=== PATIENT | female | born 1945 | race Caucasian/White ===

== ENCOUNTER 2023-06-11 23:18 | Emergency (ER) | payer MEDICARE, SELFPAY ==
[2023-06-11 23:26] VITALS: BP 122/78; PULSE 87; RESP 20; TEMP 37.3; O2SAT 88; BMI 38.7
--- NOTE | 2023-06-11 23:26 | ED_ITS ---
HPI - URI/Sore Throat General Chief Complaint: Shortness of Breath/Dyspnea Stated Complaint: cough Time Seen by Provider: 06/11/23 23:25 History of Present Illness HPI Narrative: 77-year-old female presents for cough and feeling short of breath. She's been this way for a few days and the concern was for pneumonia and she was sent here. She's been coughing up some yellow phlegm reportedly had a fever as well at the [facility]. Related Data Home Medications Medication Instructions Recorded Confirmed acetaminophen 325 mg tablet (Aphen) 650 mg PO DAILY 06/12/23 06/12/23 acetaminophen 325 mg tablet (Aphen) 650 mg PO Q4H PRN pain 06/12/23 06/12/23 aluminum-mag hydroxide-simethicone 10 ml PO Q4H acid reflux 06/12/23 06/12/23 200 mg-200 mg-20 mg/5 mL oral susp aluminum-mag hydroxide-simethicone 5 ml PO Q4H PRN indigestion 06/12/23 06/12/23 200 mg-200 mg-20 mg/5 mL oral susp (Advanced Antacid-Antigas) aspirin 81 mg tablet,delayed 81 mg PO DAILY 06/12/23 06/12/23 release (Adult Low Dose Aspirin) budesonide-formoterol HFA 160 2 inh inhalation BID 06/12/23 06/12/23 mcg-4.5 mcg/actuation aerosol inhaler (Breyna) calcium carbonate 600 mg-vitamin 1 tab PO BID 06/12/23 06/12/23 D3 10 mcg (400 unit) tablet (Calcium 600 + D(3)) ergocalciferol (vitamin D2) 1,250 1,250 mcg PO QWEEK 06/12/23 06/12/23 mcg (50,000 unit) capsule (Drisdol) febuxostat 40 mg tablet 40 mg PO DAILY 06/12/23 06/12/23 folic acid 1 mg tablet 1 mg PO DAILY 06/12/23 06/12/23 furosemide 20 mg tablet 20 mg PO DAILY 06/12/23 06/12/23 gabapentin 300 mg capsule 300 mg PO Q8H 06/12/23 06/12/23 ipratropium 0.5 mg-albuterol 3 mg 3 ml inhalation Q6H PRN shortness 06/12/23 06/12/23 (2.5 mg base)/3 mL nebulization of breath soln levothyroxine 100 mcg tablet 100 mcg PO DAILY 06/12/23 06/12/23 (Euthyrox) liothyronine 5 mcg tablet 5 mcg PO BID 06/12/23 06/12/23 metolazone 5 mg tablet 5 mg PO DAILY 06/12/23 06/12/23 multivitamin (Daily Multi-Vitamin 1 tab PO DAILY 06/12/23 06/12/23 tablet) ondansetron HCl 4 mg tablet 4 mg PO Q4H PRN nausea and vomiting 06/12/23 06/12/23 pantoprazole 40 mg tablet,delayed 40 mg PO DAILY 06/12/23 06/12/23 release spironolactone 25 mg tablet 25 mg PO DAILY 06/12/23 06/12/23 (Aldactone) tramadol 50 mg tablet 25 mg PO Q6H PRN pain 06/12/23 06/12/23 trazodone 150 mg tablet 175 mg PO DAILY 06/12/23 06/12/23 Allergies Allergy/AdvReac Type Severity Reaction Status Date / Time allopurinol Allergy Unknown Verified 06/11/23 23:34 codeine Allergy Unknown Verified 06/11/23 23:34 adhesive tape AdvReac Unknown Verified 06/11/23 23:34 diazepam [From Valium] AdvReac Unknown Verified 06/11/23 23:34 morphine AdvReac Unknown Verified 06/11/23 23:34 prochlorperazine AdvReac Unknown Verified 06/11/23 23:34 [From Compazine] Review of Systems ROS Narrative A ten point review of systems is negative except as noted above. PFSH PFS Social History Smoking status: Never smoker Exam Narrative Exam Narrative: Nurses note and vital signs reviewed and patient is not hypoxic. General: The patient appears well and in no apparent distress. Patient is resting comfortably on cart. Skin: Warm, dry, no pallor noted. There is no rash noted. Head: Normocephalic, atraumatic Eye: Normal conjunctiva, no drainage Ears, Nose, Mouth, and Throat: oral mucosa is moist. Nares patent. Cardiovascular: Regular Rate and Rhythm Respiratory: Patient is in no distress, no accessory muscle use, lungs are clear to auscultation, no wheezing, rales or rhonchi Back: non-tender GI: nontender Musculoskeletal: The patient has no evidence of calf tenderness, no pitting edema, symmetrical pulses noted bilaterally Neurological: A&O x4, normal speech Psychiatric: Cooperative Constitutional Vital Signs, click to edit/add: Last Vital Signs Temp 99.1 F 06/11/23 23:26 Pulse 87 06/11/23 23:26 Resp 20 06/11/23 23:26 BP 122/78 06/11/23 23:26 Pulse Ox 88 L 06/11/23 23:26 O2 Del Method Room Air 06/11/23 23:26 Course Vital Signs Vital signs: Vital Signs Temperature 99.1 F 06/11/23 23:26 Pulse Rate 87 06/11/23 23:26 Respiratory Rate 20 06/11/23 23:26 Blood Pressure 122/78 06/11/23 23:26 Pulse Oximetry 88 L 06/11/23 23:26 Oxygen Delivery Method Room Air 06/11/23 23:26 Temperature 99.1 F 06/11/23 23:26 Pulse Rate 87 06/11/23 23:26 Respiratory Rate 20 06/11/23 23:26 Blood Pressure 122/78 06/11/23 23:26 Pulse Oximetry 88 L 06/11/23 23:26 Oxygen Delivery Method Room Air 06/11/23 23:26 MDM - URI/Sore Throat MDM Narrative Medical decision making narrative: X-ray per radiologist does not show a definite infiltrate. Vital signs are appropriate. Covid test is negative. WBC is elevated and she doesn't have any other symptoms such as abdominal pain or vomiting or dysuria. On doxycycline tonight and prescribed same. Treatment diagnosis and follow-up were discussed with the patient. Differential Diagnosis Differential diagnosis: Likely upper respiratory infection, viral infection, bronchitis and other (pneumonia, Covid) Lab Data Attestation: I reviewed the patient's lab results. Labs: Lab Results 06/11/23 06/11/23 Range/Units 23:35 23:45 WBC 22.3 H (4.0-11.0) 10^3/uL RBC 2.90 L (4.20-5.40) 10^6/uL Hgb 9.4 L (12.0-16.0) g/dL Hct 28.9 L (36.0-48.0) % MCV 99.7 H (81.0-99.0) fL MCH 32.4 (26.7-34.0) pg MCHC 32.5 (29.9-35.2) g/dL RDW 13.8 (11.0-15.0) % Plt Count 485 H (150-450) 10^3/uL MPV 11.1 (9.5-13.5) fL Seg Neuts % (Manual) 89.0 Lymphocytes % (Manual) 1.0 L (20.5-60.0) % Monocytes % (Manual) 6.0 (1.7-12.0) % Eosinophils % (Manual) 3.0 (0.9-7.0) % Basophils % (Manual) 0.0 L (0.2-2.0) % Promyelocytes % 1.0 Neutrophils # (Manual) 19.84 H (1.4-6.5) 10^3/uL Lymphocytes # (Manual) 0.22 L (1.20-3.80) 10^3/uL Monocytes # (Manual) 1.33 H (0.30-0.80) 10^3/uL Eosinophils # (Manual) 0.66 (0.00-0.70) 10^3/uL Basophils # (Manual) 0.00 (0.00-0.10) 10^3/uL Promyelocytes # 0.22 Anisocytosis 1+ Macrocytosis 1+ Sodium 131 L (136-145) mmol/L Potassium 4.1 (3.5-5.1) mmol/L Chloride 97 L (98-107) mmol/L Carbon Dioxide 28.3 (21.0-32.0) mmol/L Anion Gap 9.8 BUN 45.0 H (7.0-18.0) mg/dL Creatinine 1.99 H (0.55-1.02) mg/dL Est GFR ( Amer) 29 L (>=60) Est GFR (Non-Af Amer) 24 L (>=60) BUN/Creatinine Ratio 22.6 Glucose 128 H (74-106) mg/dL Calcium 8.5 (8.5-10.1) mg/dL SARS-CoV-2 (PCR) Negative (NEGATIVE) Imaging Data Chest x-ray: Radiologist's impression: Procedure: XR chest 1V EXAM: XR chest 1V HISTORY: cough COMPARISON: Chest radiograph dated 10/04/2022. TECHNIQUE: One view of the chest was obtained. FINDINGS: The cardiac silhouette is stable in size. Aortic atherosclerotic disease is seen. There are mild bibasilar opacities. There is no significant pneumothorax or pleural effusion. No acute osseous abnormality is seen. [place] screws are seen within the right humeral head. There has been resection of the distal right and left clavicles. IMPRESSION: 1. Mild bibasilar opacities which are felt to represent atelectasis though developing infection could be present. Electronically authenticated by: Naya CORTEZ Date: 06/12/2023 00 Discharge Plan Discharge Chief Complaint: Shortness of Breath/Dyspnea Clinical Impression: Acute upper respiratory infection Patient Disposition: [facility] Time of Disposition Decision: 01:21 Condition: Good Mode of Transportation: EMS Instructions: Upper Respiratory Infection (ED) Additional Instructions: written prescription for doxycycline Stand Alone Forms: Portal Instructions Referrals: PEPE BOWER DO [Primary Care Provider] - 1 week
[2023-06-11 23:56] LABS: Hematocrit 28.9 % (36.0-48.0); Hemoglobin 9.4 g/dL (12.0-16.0); Mean Corpuscular HGB Conc 32.5 g/dL (29.9-35.2); Mean Corpuscular Hemoglobin 32.4 pg (26.7-34.0); Mean Corpuscular Volume 99.7 fL (81.0-99.0); Mean Platelet Volume 11.1 fL (9.5-13.5); Platelet Count 485 10^3/uL (150-450); Red Cell Distribution Width 13.8 % (11.0-15.0); White Blood Count 22.3 10^3/uL (4.0-11.0)
--- NOTE | 2023-06-12 | XR_ITS ---
The [address] [address] Patient Name: GOSIA CHEATHAM MRN: [id number] date: 1945 Sex: F Assigned Patient Location: ER Current Patient Location: ED.MAIN Accession/Order Number: [id number] Exam Date: 06/12/2023 00:05 Report Date: 06/12/2023 00:28 At the request of: WILBER LEACH Procedure: XR chest 1V EXAM: XR chest 1V HISTORY: cough COMPARISON: Chest radiograph dated 10/04/2022. TECHNIQUE: One view of the chest was obtained. FINDINGS: The cardiac silhouette is stable in size. Aortic atherosclerotic disease is seen. There are mild bibasilar opacities. There is no significant pneumothorax or pleural effusion. No acute osseous abnormality is seen. [place] screws are seen within the right humeral head. There has been resection of the distal right and left clavicles. XR/XR chest 1V IMPRESSION: 1. Mild bibasilar opacities which are felt to represent atelectasis though developing infection could be present. Electronically authenticated by: Naya CORTEZ Date: 06/12/2023 00:28
[2023-06-12 00:16] LABS: Anion Gap 9.8; BUN Creatinine Ratio 22.6; Calcium 8.5 mg/dL (8.5-10.1); Carbon Dioxide 28.3 mmol/L (21.0-32.0); Chloride 97 mmol/L (98-107); Estimated GFR (African America 29 (>=60); Estimated GFR (Non-African Ame 24 (>=60); Glucose 128 mg/dL (74-106); Potassium 4.1 mmol/L (3.5-5.1); Sodium 131 mmol/L (136-145)
[2023-06-12 00:20] LABS: SARS-CoV-2 Ag NEGATIVE (NEGATIVE)
[2023-06-12 00:38] LABS: Lymphocytes Absolute Manual 0.22 10^3/uL (1.20-3.80); Segmented Neut Absolute Manual 19.84 10^3/uL (1.4-6.5)
[2023-06-12 00:39] LABS: Eosinophils Absolute Manual 0.66 10^3/uL (0.00-0.70); Monocytes Absolute Manual 1.33 10^3/uL (0.30-0.80); Promyelocytes Absolute Manual 0.22
[2023-06-12 00:40] LABS: Anisocytosis 1+; Macrocytosis 1+
[2023-06-12] MEDS: DOXYCYCLINE MONOHYDRATE 100 MG CAPSULE PO (02:14)
--- NOTE | 2023-06-12 02:21 | PC.NURSE ---
Meal provided. Aware of ETA for return to [facility].
[2023-06-12 02:37] VITALS: BP 158/80; PULSE 79; RESP 20; O2SAT 94
[2023-06-12 10:16] LABS: SARS-CoV-2 NAA NOT DETECTED (NOT DETECTE)
== END 2023-06-12 03:35 ==
PROVIDERS: Emergency Provider Emergency Medicine; PCP Family Medicine
DX: J06.9 Acute upper respiratory infection, unspecified (principal); Z20.822 Contact with and (suspected) exposure to COVID-19; Z79.82 Long term (current) use of aspirin; Z79.899 Other long term (current) drug therapy; Z79.890 Hormone replacement therapy
CPT/HCPCS: 36415; 71045; 80048; 85027; 87635; 87811; 99284; U0003

== ENCOUNTER 2024-05-11 00:59 | Observation (INO) | payer MEDICARE, SELFPAY ==
[2024-05-11] VITALS (66 sets, daily range): BP systolic 94–145; BP diastolic 44–85; PULSE 73–99; TEMP 36.3–36.7; O2SAT 80–100; BMI 45.5; BMI 45.9
--- NOTE | 2024-05-11 01:25 | XR_ITS ---
The [address] [address] Patient Name: GOSIA CHEATHAM MRN: [id number] date: 1945 Sex: F Assigned Patient Location: ER Current Patient Location: ER Accession/Order Number: [id number] Exam Date: 05/11/2024 01:30 Report Date: 05/11/2024 02:54 At the request of: ANAHI LAKHANI Procedure: XR chest 1V EXAMINATION:XR chest 1V INDICATION:chest pain COMPARISON:06/12/2023 TECHNIQUE:A single frontal view of the chest is submitted. FINDINGS: The cardiac silhouette is enlarged but stable. Lungs are underinflated which is contributing to vascular crowding and atelectasis similar to the previous exam. The pulmonary vascularity is within normal limits. No new suspicious airspace disease has developed in the lungs. There is no costophrenic angle blunting. XR/XR chest 1V IMPRESSION: Similar hypoventilatory changes in the chest without acute cardiopulmonary process. Electronically authenticated by: MAI HAMPTON Date: 05/11/2024 02:54
--- NOTE | 2024-05-11 01:27 | ED.CHESTPAI1 ---
HPI - Chest Pain General Chief Complaint: Chest Pain Stated Complaint: Chest Pain Time Seen by Provider: 05/11/24 01:20 Source: patient Mode of arrival: ambulance Limitations: no limitations History of Present Illness HPI narrative: patient presents to [facility] from [facility] with complaint of chest pain. Started within the hour. Comes and goes. some nausea. Not short of breath. Also complains of back pain. Denies abdominal pain Related Data Home Medications ?Medication ?Instructions ?Recorded ?Confirmed acetaminophen 325 mg tablet (Aphen) 650 mg PO DAILY 06/12/23 05/11/24 aluminum-mag hydroxide-simethicone 5 ml PO Q4H PRN indigestion 06/12/23 05/11/24 200 mg-200 mg-20 mg/5 mL oral susp (Advanced Antacid-Antigas) aspirin 81 mg tablet,delayed 81 mg PO DAILY 06/12/23 05/11/24 release (Adult Low Dose Aspirin) budesonide-formoterol HFA 160 2 inh inhalation BID 06/12/23 05/11/24 mcg-4.5 mcg/actuation aerosol inhaler (Breyna) calcium carbonate 600 mg-vitamin 1 tab PO BID 06/12/23 05/11/24 D3 10 mcg (400 unit) tablet (Calcium 600 + D(3)) ergocalciferol (vitamin D2) 1,250 1,250 mcg PO QWEEK 06/12/23 05/11/24 mcg (50,000 unit) capsule (Drisdol) febuxostat 40 mg tablet 40 mg PO DAILY 06/12/23 05/11/24 folic acid 1 mg tablet 1 mg PO DAILY 06/12/23 05/11/24 furosemide 20 mg tablet 40 mg PO DAILY 06/12/23 05/11/24 gabapentin 300 mg capsule 300 mg PO Q8H 06/12/23 05/11/24 levothyroxine 100 mcg tablet 100 mcg PO DAILY 06/12/23 05/11/24 (Euthyrox) liothyronine 5 mcg tablet 5 mcg PO BID 06/12/23 05/11/24 metolazone 5 mg tablet 5 mg PO DAILY 06/12/23 05/11/24 multivitamin (Daily Multi-Vitamin 1 tab PO DAILY 06/12/23 05/11/24 tablet) pantoprazole 40 mg tablet,delayed 40 mg PO DAILY 06/12/23 05/11/24 release spironolactone 25 mg tablet 25 mg PO DAILY 06/12/23 05/11/24 (Aldactone) tramadol 50 mg tablet 25 mg PO Q6H PRN pain 06/12/23 05/11/24 ammonium lactate 12 % lotion 1 applic topical BID 05/11/24 05/11/24 ketoconazole 2 % topical cream 1 applic topical BID 05/11/24 05/11/24 nystatin 100,000 unit/gram topical 1 applic topical BID PRN skin 05/11/24 05/11/24 powder (Nyamyc) irritation trazodone 100 mg tablet 125 mg PO DAILY 05/11/24 05/11/24 Allergies Allergy/AdvReac Type Severity Reaction Status Date / Time allopurinol Allergy Unknown Unknown Verified 05/13/24 19:35 codeine Allergy Unknown Unknown Verified 05/13/24 19:35 adhesive tape AdvReac Unknown Unknown Verified 05/13/24 19:35 diazepam [From Valium] AdvReac Unknown Unknown Verified 05/13/24 19:35 morphine AdvReac Unknown Unknown Verified 05/13/24 19:35 prochlorperazine AdvReac Unknown Unknown Verified 05/13/24 19:35 [From Compazine] Review of Systems ROS Status of ROS 10 or more systems reviewed and unremarkable except as noted in history and below [facility] Medical History (Updated 05/14/24 @ 00:36 by Sony Odell MD) Macrocytic anemia ?D53.9 - Nutritional anemia, unspecified (ICD-10) Prolonged immobilization ?Z74.09 - Other reduced mobility (ICD-10) Afib ?I48.91 - Unspecified atrial fibrillation (ICD-10) CKD stage 3a, GFR 45-59 ml/min ?N18.31 - Chronic kidney disease, stage 3a (ICD-10) (HFpEF) heart failure with preserved ejection fraction ?I50.30 - Unspecified diastolic (congestive) heart failure (ICD-10) Major depressive disorder ?F32.9 - Major depressive disorder, single episode, unspecified (ICD-10) 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 - Nontoxic goiter, unspecified (ICD-10) Hypothyroid ?E03.9 - Hypothyroidism, unspecified (ICD-10) Neuromuscular dysfunction of bladder ?N31.9 - Neuromuscular dysfunction of bladder, unspecified (ICD-10) Gout ?M10.9 - Gout, unspecified (ICD-10) Fibromyalgia ?M79.7 - Fibromyalgia (ICD-10) Obesity ?E66.9 - Obesity, unspecified (ICD-10) Disc degeneration, lumbar ?M51.36 - Other intervertebral disc degeneration, lumbar region (ICD-10) Lymphedema ?I89.0 - Lymphedema, not elsewhere classified (ICD-10) Pulmonary edema ?J81.1 - Chronic pulmonary edema (ICD-10) Kidney disease ?N28.9 - Disorder of kidney and ureter, unspecified (ICD-10) 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 Smoking status: Never smoker Non-prescribed substance use: denies use Previous occupational history: retired Known occupational exposures/hazards: No Highest level of school completed/degree received: high school graduate Are you now , , , , never or living with a partner: don't know In a typical week, how many times do you talk on the telephone with family, friends, or neighbors: once per week How often do you get together with friends or relatives: once per week How often do you attend mandaen or scientologist services: 1-3 times per year Do you belong to any clubs or organizations such as mandaen groups unions, fraternal or athletic groups, or school groups: no Total score: 0 Score interpretation: A score of less than or equal to 1 indicates the most socially isolated. Little interest or pleasure in doing things: not at all Feeling down, depressed, or hopeless: not at all Feel stressed/tense/nervous/anxious/difficulty sleeping: not at all Due to disability, difficulty making decisions: No Do you think of yourself as: straight/heterosexual Gender Identity: female Exam Constitutional Vital Signs, click to edit/add: Last Vital Signs Temp 98.3 F 05/12/24 11:09 Pulse 72 05/12/24 11:09 Resp 16 05/12/24 11:09 BP 111/62 05/12/24 11:09 Pulse Ox 98 05/12/24 11:09 O2 Del Method Room Air 05/12/24 11:09 O2 Flow Rate 1 05/12/24 04:29 Common normals: no apparent distress, alert and well nourished Other: Parkinson tremor. speaks in low voice HENMT Common normals: normocephalic and head/scalp atraumatic Eye Common normals: EOMs intact bilaterally Respiratory Common normals: normal respiratory effort, no retractions, no use of accessory muscles and clear to auscultation bilaterally Cardio Common normals: regular rate, regular rhythm, S1 normal heart sound and S2 normal heart sound GI Common normals: Normal to inspection, nondistended, normoactive bowel sounds present, soft to palpation and non-tender Extremity Other: stasis dermatitis bilat lower ext Neuro Common normals: moves all extremities Other: tremor upper extremities Psych Appearance: grossly normal Course Course Hospital Course: 78 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 Patient denied cough, fever, chest wall trauma. Patients work up in ED revealed elevated d dimer. She was unable to get CTA due to her renal function. She was started on therapeutic Lovenox overnight to treat suspected PE until this could be confirmed with further testing. i switched her to Eliquis as Lovenox is best avoided with underlying CKD. Patient underwent VQ scan and B/l LE US --> no PE or DVT. Patient's chest pain is likely non cardiac as its pleuritic. She also had negative cardiac enzymes and her EKG did not show acute ischemic changes. She was noted to have Afib which she has a prior hx of. Pt was also noted to have anemia and required one unit blood for hb of 7.5. Anemia w/u is c/w anemia of CKD. Patient is stable for d/c. f/u with PCP in 1-2 weeks Vital Signs Vital signs: Vital Signs Temperature 97.9 F 05/11/24 01:03 Pulse Rate 85 05/11/24 01:03 Respiratory Rate 20 09/08/24 01:03 Blood Pressure 145/85 H 05/11/24 01:03 Pulse Oximetry 95 05/11/24 01:03 Oxygen Delivery Method Room Air 05/11/24 01:03 Temperature 98.3 F 05/12/24 11:09 Pulse Rate 72 05/12/24 11:09 Respiratory Rate 16 05/12/24 11:09 Blood Pressure 111/62 05/12/24 11:09 Pulse Oximetry 98 05/12/24 11:09 Oxygen Delivery Method Room Air 05/12/24 11:09 Oxygen Delivery Flow Rate 1 05/12/24 04:29 MDM - Chest Pain MDM Narrative Medical decision making narrative: [facility] patient presents with chest pain that comes and goes. History of A. fib. she is not on a blood thinner. Troponin neg. D-dimer elevated. Not able to order CTA chest due to her CKD. Also has chronic anemia . EKG with A. Fib without acute findings. given dose of Lovenox after discussion with the hospitalist and will plan obs admission Lab Data Labs: Lab Results 05/11/24 05/11/24 05/11/24 Range/Units 01:15 03:52 07:10 WBC 9.9 8.9 (4.0-11.0) 10^3/uL RBC 2.34 L 2.12 L (4.20-5.40) 10^6/uL Hgb 8.3 L 7.5 L (12.0-16.0) g/dL Hct 25.9 L 23.4 L* (36.0-48.0) % MCV 110.7 H 110.4 H (81.0-99.0) fL MCH 35.5 H 35.4 H (26.7-34.0) pg MCHC 32.0 32.1 (29.9-35.2) g/dL RDW 14.3 14.1 (11.0-15.0) % Plt Count 669 H 602 H (150-450) 10^3/uL MPV 11.2 11.1 (9.5-13.5) fL Seg Neuts % (Manual) 80.0 H (43.0-75.0) Band Neutrophils % 1.0 (0-5) % Lymphocytes % (Manual) 5.0 L (20.5-60.0) % Atypical Lymphs % (Man) 2.0 % Monocytes % (Manual) 7.0 (1.7-12.0) % Eosinophils % (Manual) 4.0 (0.9-7.0) % Basophils % (Manual) 1.0 (0.2-2.0) % Neutrophils # (Manual) 7.92 H (1.4-6.5) 10^3/uL Band Neutrophils # 0.1 (0.0-0.3) 10^3/uL Lymphocytes # (Manual) 0.49 L (1.20-3.80) 10^3/uL Abs Atypical Lymphs Man 0.19 Monocytes # (Manual) 0.69 (0.30-0.80) 10^3/uL Eosinophils # (Manual) 0.39 (0.00-0.70) 10^3/uL Basophils # (Manual) 0.09 (0.00-0.10) 10^3/uL Toxic Vacuolation 2+ Stomatocytes 3+ D-Dimer 1.26 H* (<=0.59) mg/L FEU Sodium 136 140 (136-145) mmol/L Potassium 3.6 3.6 (3.5-5.1) mmol/L Chloride 96 L 101 (98-107) mmol/L Carbon Dioxide 30.6 31.8 (21.0-32.0) mmol/L Anion Gap 13.0 10.8 BUN 59.0 H 59.0 H (7.0-18.0) mg/dL Creatinine 2.28 H 2.13 H (0.55-1.02) mg/dL Est GFR ( Amer) 25 L 27 L (>=60) Est GFR (Non-Af Amer) 21 L 22 L (>=60) BUN/Creatinine Ratio 25.9 27.7 Glucose 107 H 97 (74-106) mg/dL Estimat Average Glucose 108 mg/dL Hemoglobin A1c 5.4 (4.5-6.2) % Calcium 9.0 8.8 (8.5-10.1) mg/dL Troponin I High Sens 7.3 7.7 7.1 (4.0-51.3) pg/mL NT-Pro-B Natriuret Pep 1467.0 (<=1800.0) pg/mL Triglycerides 115 (<=150) mg/dL Cholesterol 128 (<=200) mg/dL LDL Cholesterol, Calc 47.0 mg/dL VLDL Cholesterol 23.0 mg/dL HDL Cholesterol 58 (40-60) mg/dL Cholesterol/HDL Ratio 2.2 TSH 4.279 H (0.358-3.740) uIU/mL Discharge Plan Discharge Chief Complaint: Chest Pain Clinical Impression: D-dimer, elevated Chest pain Qualifiers: Chest pain type: intercostal pain Qualified Code(s): R07.82 - Intercostal pain Patient Disposition: Admitted As Inpatient Discharge Date/Time: 05/11/24 07:45
[2024-05-11 01:31] LABS: Hematocrit 25.9 % (36.0-48.0); Hemoglobin 8.3 g/dL (12.0-16.0); Mean Corpuscular Hemoglobin 35.5 pg (26.7-34.0); Mean Corpuscular Volume 110.7 fL (81.0-99.0); Mean Platelet Volume 11.2 fL (9.5-13.5); Platelet Count 669 10^3/uL (150-450); Red Blood Count 2.34 10^6/uL (4.20-5.40); Red Cell Distribution Width 14.3 % (11.0-15.0); White Blood Count 9.9 10^3/uL (4.0-11.0)
[2024-05-11 01:49] LABS: D Dimer 1.26 mg/L FEU (<=0.59)
[2024-05-11 01:56] LABS: Atypical Lymphocytes Abs Man 0.19; BUN Creatinine Ratio 25.9; Band Neutrophils Absolute 0.1 10^3/uL (0.0-0.3); Basophils Abs Manual 0.09 10^3/uL (0.00-0.10); Carbon Dioxide 30.6 mmol/L (21.0-32.0); Chloride 96 mmol/L (98-107); Eosinophils Absolute Manual 0.39 10^3/uL (0.00-0.70); Estimated GFR (African America 25 (>=60); Estimated GFR (Non-African Ame 21 (>=60); Glucose 107 mg/dL (74-106); Lymphocytes Absolute Manual 0.49 10^3/uL (1.20-3.80); Monocytes Absolute Manual 0.69 10^3/uL (0.30-0.80); Potassium 3.6 mmol/L (3.5-5.1); Segmented Neut Absolute Manual 7.92 10^3/uL (1.4-6.5); Sodium 136 mmol/L (136-145); Troponin I High Sensitivity 7.3 pg/mL (4.0-51.3)
[2024-05-11 01:57] LABS: Stomatocytes 3+; Toxic Vacuolation 2+
[2024-05-11] MEDS: ONDANSETRON PF 4 MG/2 ML VIAL IV (02:00)
[2024-05-11 04:14] LABS: Troponin I High Sensitivity 7.7 pg/mL (4.0-51.3)
[2024-05-11] MEDS: ENOXAPARIN SODIUM 120 MG/0.8 ML SYRINGE SUBQ (04:31)
--- NOTE | 2024-05-11 05:00 | ECG_ITS ---
The [facility] Test Date: 2024-05-11 Pat Name: GOSIA CHEATHAM Department: Room: - Gender: Female Mental Hygienist: : 1945 Requested By: [id number] Order Number: [id number] Reading MD: NAZ VILLEGAS Measurements Intervals [place] Rate: 87 P: -35648 SD: -[id number] QRS: 24 QRSD: 114 T: 5 QT: 420 QTc: 464 Interpretive Statements 1210 Atrial fibrillation 2320 Nonspecific intraventricular conduction delay 8102 Low QRS voltage in chest leads 8304 Long QTc interval 9150 abnormal ECG Electronically Signed On 05-11-2024 7:34:28 EDT by NAZ VILLEGAS
--- NOTE | 2024-05-11 07:05 | NM_ITS ---
The [address] [address] Patient Name: GOSIA CHEATHAM MRN: [id number] date: 1945 Sex: F Assigned Patient Location: [place] Current Patient Location: [place] Accession/Order Number: [id number] Exam Date: 05/11/2024 11:45 Report Date: 05/11/2024 14:18 At the request of: SHAIKH JIMENEZ Procedure: NM pul vent and perfuse NUCLEAR MEDICINE V/Q SCAN HISTORY: Elevated d-dimer. COMPARISON: Chest X-ray 05/11/2024. METHOD: For the ventilation portion of the study, the patient inhaled 26 mCi of Tc-99m-DTPA in aerosol form and ventilation images in multiple projections was performed. For the perfusion portion of the study, the patient was injected intravenously with 8 mCi of Tc-99m-MAA and perfusion images of the lungs in multiple projections were again performed. FINDINGS: There are no perfusion defects. There are no ventilation/perfusion mismatches. NM/NM pul vent and perfuse IMPRESSION: Normal VQ scan. Electronically authenticated by: MATILDE DAVIES Date: 05/11/2024 14:18
[2024-05-11 07:22] LABS: Hemoglobin 7.5 g/dL (12.0-16.0); Mean Corpuscular HGB Conc 32.1 g/dL (29.9-35.2); Mean Corpuscular Hemoglobin 35.4 pg (26.7-34.0); Mean Corpuscular Volume 110.4 fL (81.0-99.0); Mean Platelet Volume 11.1 fL (9.5-13.5); Platelet Count 602 10^3/uL (150-450); Red Cell Distribution Width 14.1 % (11.0-15.0); White Blood Count 8.9 10^3/uL (4.0-11.0)
[2024-05-11 07:32] LABS: Estimated Average Glucose 108 mg/dL; Glycohemoglobin A1C 5.4 % (4.5-6.2)
[2024-05-11 07:40] LABS: Anion Gap 10.8; BUN Creatinine Ratio 27.7; Calcium 8.8 mg/dL (8.5-10.1); Carbon Dioxide 31.8 mmol/L (21.0-32.0); Chloride 101 mmol/L (98-107); Chol HDL Ratio 2.2; Cholesterol 128 mg/dL (<=200); Estimated GFR (African America 27 (>=60); Estimated GFR (Non-African Ame 22 (>=60); Glucose 97 mg/dL (74-106); HDL Cholesterol 58 mg/dL (40-60); Potassium 3.6 mmol/L (3.5-5.1); Sodium 140 mmol/L (136-145); Thyroid Stimulating Hormone 4.279 uIU/mL (0.358-3.740); Triglycerides 115 mg/dL (<=150); Troponin I High Sensitivity 7.1 pg/mL (4.0-51.3)
[2024-05-11 08:09] LABS: Red Blood Count 2.12 10^6/uL (4.20-5.40)
[2024-05-11 08:11] LABS: Hematocrit 23.4 % (36.0-48.0)
--- NOTE | 2024-05-11 08:12 | PC.NURSE ---
pt transferred to [facility] room 214. RN in ER took result of HCT 23.4 and Ronel LACEY on [facility] was notified at 0811
[2024-05-11] MEDS: AMMONIUM LACTATE 226 GM BOTTLE 1 APPLIC TOPICAL ×2 (09:35→20:39)
[2024-05-11] MEDS: KETOCONAZOLE 15 APPLIC TUBE TOPICAL ×2 (09:35→20:39)
[2024-05-11] MEDS: CALCIUM CARBONATE 600 MG/VITAMIN D3 400 IU TABLET 1 TAB PO ×2 (09:36→20:40)
[2024-05-11] MEDS: MULTIVITAMIN TABLET 1 TAB PO (09:36)
[2024-05-11] MEDS: FEBUXOSTAT 40 MG TABLET PO (09:36)
[2024-05-11] MEDS: ASPIRIN 81 MG TAB.CHEW PO (09:36)
[2024-05-11] MEDS: FOLIC ACID 1 MG TABLET PO (09:36)
[2024-05-11] MEDS: OMEPRAZOLE 40 MG CAPSULE.DR PO (09:37)
[2024-05-11] MEDS: APIXABAN 5 MG TABLET 10 MG PO ×2 (09:37→20:40)
[2024-05-11] MEDS: LIOTHYRONINE SODIUM 5 MCG TABLET PO (09:47)
[2024-05-11] MEDS: LEVOTHYROXINE SODIUM 100 MCG TABLET PO (09:47)
[2024-05-11] MEDS: GABAPENTIN 300 MG CAPSULE PO ×3 (09:47→20:40)
[2024-05-11] MEDS: ALBUTEROL SULFATE 2.5 MG/3 ML VIAL NEB IH ×3 (10:29→20:17)
[2024-05-11] MEDS: BUDESONIDE 0.5 MG/2 ML AMPULE NEB IH ×2 (10:29→20:17)
--- NOTE | 2024-05-11 12:38 | P.HP_ITS ---
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 Patient was resting comfortably in bed and was ready for bedtime. Patient denies cough, fever, chest wall trauma. She has prior hx of PE and was previously on anticoagulation for it. She reports that over past few days she has noticed that her right LE is more swollen than usual. Patients work up in ED revealed elevated d dimer but rest of the work up was unremarkable. Her cardiac enzymes are negative. EKG shows rate controlled Afib. She was unable to get CTA due to her renal function. She was started on therapeutic lovenox overnight to treat suspect PE until this could be confirmed with further testing. On review of her chart/problem list, it seems like she had hx of GIB in 2019 and that would explain why she is not on AC for Afib or hx of PE. Patient also had mild hypoxia on arrival and required supplemental oxygenation via NC. She feels better overall but still reports mild chest pain and SOB. She is now on RA. Patient was switched over to Eliquis as lovenox is not a good treatment option due to her renal dysfunction. I have ordered US b/l LE and VQ scan to further assess/confirm VTE. In the meanwhile, we will treat her for suspected PE as there is very high suspicion of PE based on her prior hx, initial work up and presenting illness/prolonged immobilization. There is very low suspicion that her chest pain is due to underlying CAD given that pain was acute onset, pleuritic and associated with SOB, elevated d dimer. She denies personal hx of CAD. Opioid HPI Opioid Management Most Recent Pain and Opioid Data: Last Pain Scale 0 05/11/24 12:47 Last Pain Assessment 05/11/24 12:47 Last ORT Total Score 0 05/11/24 08:11 Last ORT Risk Category Low Risk 05/11/24 08:11 Review of Systems ROS Status of ROS 10 or more systems reviewed and unremark able except as noted in history and below [facility] Medical History (Updated 05/11/24 @ 13:13 by Shaikh Tyrese MD) Macrocytic anemia ?D53.9 - Nutritional anemia, unspecified (ICD-10) Prolonged immobilization ?Z74.09 - Other reduced mobility (ICD-10) Afib ?I48.91 - Unspecified atrial fibrillation (ICD-10) CKD stage 3a, GFR 45-59 ml/min ?N18.31 - Chronic kidney disease, stage 3a (ICD-10) (HFpEF) heart failure with preserved ejection fraction ?I50.30 - Unspecified diastolic (congestive) heart failure (ICD-10) Major depressive disorder ?F32.9 - Major depressive disorder, single episode, unspecified (ICD-10) 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 - Nontoxic goiter, unspecified (ICD-10) Hypothyroid ?E03.9 - Hypothyroidism, unspecified (ICD-10) Neuromuscular dysfunction of bladder ?N31.9 - Neuromuscular dysfunction of bladder, unspecified (ICD-10) Gout ?M10.9 - Gout, unspecified (ICD-10) Fibromyalgia ?M79.7 - Fibromyalgia (ICD-10) Obesity ?E66.9 - Obesity, unspecified (ICD-10) Disc degeneration, lumbar ?M51.36 - Other intervertebral disc degeneration, lumbar region (ICD-10) Lymphedema ?I89.0 - Lymphedema, not elsewhere classified (ICD-10) Pulmonary edema ?J81.1 - Chronic pulmonary edema (ICD-10) Kidney disease ?N28.9 - Disorder of kidney and ureter, unspecified (ICD-10) 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 Smoking status: Never smoker Non-prescribed substance use: denies use Previous occupational history: retired Known occupational exposures/hazards: No Highest level of school completed/degree received: high school graduate Are you now , , , , never or living with a partner: don't know In a typical week, how many times do you talk on the telephone with family, friends, or neighbors: once per week How often do you get together with friends or relatives: once per week How often do you attend yazdanism or pentecostalism services: 1-3 times per year Do you belong to any clubs or organizations such as yazdanism groups unions, fraternal or athletic groups, or school groups: no Total score: 0 Score interpretation: A score of less than or equal to 1 indicates the most socially isolated. Little interest or pleasure in doing things: not at all Feeling down, depressed, or hopeless: not at all Feel stressed/tense/nervous/anxious/difficulty sleeping: not at all Due to disability, difficulty making decisions: No Do you think of yourself as: straight/heterosexual Gender Identity: female Meds Home Medications and Allergies Home Medications ?Medication ?Instructions ?Recorded ?Confirmed ?Type acetaminophen 325 mg tablet (Aphen) 650 mg PO DAILY 06/12/23 05/11/24 History aluminum-mag hydroxide-simethicone 5 ml PO Q4H PRN indigestion 06/12/23 05/11/24 History 200 mg-200 mg-20 mg/5 mL oral susp (Advanced Antacid-Antigas) aspirin 81 mg tablet,delayed 81 mg PO DAILY 06/12/23 05/11/24 History release (Adult Low Dose Aspirin) budesonide-formoterol HFA 160 2 inh inhalation BID 06/12/23 05/11/24 History mcg-4.5 mcg/actuation aerosol inhaler (Breyna) calcium carbonate 600 mg-vitamin 1 tab PO BID 06/12/23 05/11/24 History D3 10 mcg (400 unit) tablet (Calcium 600 + D(3)) ergocalciferol (vitamin D2) 1,250 1,250 mcg PO QWEEK 06/12/23 05/11/24 History mcg (50,000 unit) capsule (Drisdol) febuxostat 40 mg tablet 40 mg PO DAILY 06/12/23 05/11/24 History folic acid 1 mg tablet 1 mg PO DAILY 06/12/23 05/11/24 History furosemide 20 mg tablet 40 mg PO DAILY 06/12/23 05/11/24 History gabapentin 300 mg capsule 300 mg PO Q8H 06/12/23 05/11/24 History levothyroxine 100 mcg tablet 100 mcg PO DAILY 06/12/23 05/11/24 History (Euthyrox) liothyronine 5 mcg tablet 5 mcg PO BID 06/12/23 05/11/24 History metolazone 5 mg tablet 5 mg PO DAILY 06/12/23 05/11/24 History multivitamin (Daily Multi-Vitamin 1 tab PO DAILY 06/12/23 05/11/24 History tablet) pantoprazole 40 mg tablet,delayed 40 mg PO DAILY 06/12/23 05/11/24 History release spironolactone 25 mg tablet 25 mg PO DAILY 06/12/23 05/11/24 History (Aldactone) tramadol 50 mg tablet 25 mg PO Q6H PRN pain 06/12/23 05/11/24 History ammonium lactate 12 % lotion 1 applic topical BID 05/11/24 05/11/24 History ketoconazole 2 % topical cream 1 applic topical BID 05/11/24 05/11/24 History nystatin 100,000 unit/gram topical 1 applic topical BID PRN skin 05/11/24 History powder (Nyamyc) irritation trazodone 100 mg tablet 125 mg PO DAILY 05/11/24 05/11/24 History Allergies Allergy/AdvReac Type Severity Reaction Status Date / Time allopurinol Allergy Unknown Verified 06/11/23 23:34 codeine Allergy Unknown Verified 06/11/23 23:34 adhesive tape AdvReac Unknown Verified 06/11/23 23:34 diazepam [From Valium] AdvReac Unknown Verified 06/11/23 23:34 morphine AdvReac Unknown Verified 06/11/23 23:34 prochlorperazine AdvReac Unknown Verified 06/11/23 23:34 [From Compazine] Exam Constitutional Vital Signs, click to edit/add: Last Vital Signs Temp 98.0 F 05/11/24 11:45 Pulse 83 05/11/24 11:45 Resp 16 05/11/24 11:45 BP 96/52 05/11/24 11:45 Pulse Ox 93 L 05/11/24 11:45 O2 Del Method Room Air 05/11/24 11:45 O2 Flow Rate 1.5 05/11/24 10:33 Documenting provider has reviewed patient's vital signs: yes Common normals: no apparent distress and oriented x3 General appearance: cooperative and comfortable Nutritional appearance: obese HENMT Common normals: normocephalic and head/scalp atraumatic Head and scalp: normocephalic and atraumatic Eye Common normals: conjunctivae normal and no scleral icterus Conjunctiva: conjunctiva(e) normal Respiratory Common normals: normal respiratory effort and clear to auscultation bilaterally Effort & inspection: able to speak in complete sentences Auscultation: clear to auscultation bilaterally and diminished lung sounds Cardio Common normals: regular rate, S1 normal heart sound and S2 normal heart sound Rate: regular rate Rhythm: abnormal rhythm Heart sounds: S1 normal and S2 normal GI Common normals: Normal to inspection, nondistended, normoactive bowel sounds present, soft to palpation, non-tender and no hepatosplenomegaly Palpation: soft and no hepatosplenomegaly Extremity General: edema (B/L LE edema, left is worse than right. ) Neuro Common normals: oriented x3, moves all extremities and no focal motor deficits Psych Common normals: mental status grossly normal, denies hallucinations, denies homicidal ideation and denies suicidal ideation Results Labs Labs: Short CBC 05/11/24 05/11/24 Range/Units 01:15 07:10 WBC 9.9 8.9 (4.0-11.0) 10^3/uL Hgb 8.3 L 7.5 L (12.0-16.0) g/dL Hct 25.9 L 23.4 L* (36.0-48.0) % Plt Count 669 H 602 H (150-450) 10^3/uL BMP 05/11/24 05/11/24 01:15 07:10 Sodium 136 140 Potassium 3.6 3.6 Chloride 96 L 101 Carbon Dioxide 30.6 31.8 BUN 59.0 H 59.0 H Creatinine 2.28 H 2.13 H Glucose 107 H 97 Calcium 9.0 8.8 Assessment and Plan Assessment and Plan (1) Suspected venous thromboembolism (VTE): Assessment and Plan: Suspected PE - elevated d dimer, pleuritic chest pain with SOB, prior hx of PE, prolonged immobilization. On Eliquis empirically. Ordered US B/l LE and VQ scan. Unable to perform CTA due to renal function (2) Respiratory failure with hypoxia: Assessment and Plan: Acute hypoxia noted on admission. Pulse Ox 88% on RA. She was still hypoxic in the morning upon my eval. Now on RA. Likely due to PE. On Eliquis for it. No resp distress. Doing well. Qualifiers: Chronicity: acute Qualified Code(s): J96.01 - Acute respiratory failure with hypoxia (3) Chest pain: Assessment and Plan: Likely due to PE. Low suspicion for underlying CAD. Normal Troponins. EKG shows Afib. Pain is pleuritic in nature with chest wall tenderness. Qualifiers: Chest pain type: intercostal pain Qualified Code(s): R07.82 - Intercostal pain (4) D-dimer, elevated: Assessment and Plan: Suspected PE. On Eliquis. Awaiting further tests for confirmation. (5) (HFpEF) heart failure with preserved ejection fraction: Assessment and Plan: C/w lasix, metolazone and aldactone. Qualifiers: Heart failure chronicity: chronic Qualified Code(s): I50.32 - Chronic diastolic (congestive) heart failure (6) CKD stage 3a, GFR 45-59 ml/min: Assessment and Plan: Renal function more or less at baseline. Monitor closely (7) Afib: Assessment and Plan: HR well controlled. Not on AC for stroke px likely due to prior hx of GIB/PUD. Qualifiers: Atrial fibrillation type: persistent (not longstanding) Qualified Code(s): I48.19 - Other persistent atrial fibrillation (8) Prolonged immobilization: Assessment and Plan: More or less bed bound, wheelchair bound. Does not ambulate. At high risk of PE. PT/OT eval. (9) Macrocytic anemia: Assessment and Plan: Ordered anemia work up. (10) Major depressive disorder: Assessment and Plan: Stable mood. C/w trazodone. Qualifiers: Major depression recurrence: recurrent Active/Remission status: in full remission Qualified Code(s): F33.42 - Major depressive disorder, recurrent, in full remission (11) Gout: Assessment and Plan: Cw febuxostat Qualifiers: Gout site: unspecified site Gout etiology: unspecified cause Chronicity: chronic Presence of tophus: without tophus Qualified Code(s): M1A.9XX0 - Chronic gout, unspecified, without tophus (tophi) (12) Obesity: Assessment and Plan: Patient will benefit from weight loss. She can be a good candidate for GLP agonists. Defer to PCP. Qualifiers: Obesity type: due to excess calories Obesity classification: adult class 3 (BMI >= 40) Serious obesity comorbidity presence: without serious comorbidity Body mass index: BMI 45.0-49.9 Qualified Code(s): E66.01 - Morbid (severe) obesity due to excess calories; Z68.42 - Body mass index [BMI] 45.0- 49.9, adult (13) Hypothyroid: Assessment and Plan: TSH mildly elevated. Will defer adjustment to levothyroxine dose to PCP. Qualifiers: Hypothyroidism type: unspecified Qualified Code(s): E03.9 - Hypothyroidism, unspecified
[2024-05-11 13:24] LABS: Hemoglobin 7.5 g/dL (12.0-16.0)
[2024-05-11 13:29] LABS: Hematocrit 23.9 % (36.0-48.0)
[2024-05-11 13:48] LABS: Percent Iron Saturation 23.5 %
[2024-05-11] MEDS: FUROSEMIDE 40 MG/4 ML VIAL IVP (14:47)
[2024-05-11] MEDS: TRAMADOL HCL 50 MG TABLET 25 MG PO (20:40)
[2024-05-11] MEDS: TRAZODONE HCL 50 MG TABLET 125 MG PO (21:43)
[2024-05-12] VITALS (10 sets, daily range): BP systolic 84–111; BP diastolic 51–62; PULSE 72–96; TEMP 36.7–36.8; O2SAT 90–98
[2024-05-12] MEDS: TRAMADOL HCL 50 MG TABLET 25 MG PO (02:47)
[2024-05-12] MEDS: ALBUTEROL SULFATE 2.5 MG/3 ML VIAL NEB IH ×2 (04:00→11:04)
[2024-05-12] MEDS: GABAPENTIN 300 MG CAPSULE PO (05:22)
[2024-05-12] MEDS: LEVOTHYROXINE SODIUM 100 MCG TABLET PO (05:25)
[2024-05-12 05:30] LABS: Basophils Absolute Auto 0.1 10^3/uL (0.0-0.1); Basophils Percent Auto 1.4 % (0.2-2.0); Eosinophils Absolute Auto 0.4 10^3/uL (0.0-0.7); Eosinophils Percent Auto 4.6 % (0.9-7.0); Hematocrit 25.2 % (36.0-48.0); Hemoglobin 8.2 g/dL (12.0-16.0); Immature Granulocytes Abs Auto 0.19 10^3/uL (0.00-0.03); Immature Granulocytes Pct Auto 2.2 % (0.0-0.5); Lymphocytes Absolute Auto 1.4 10^3/uL (1.2-3.8); Lymphocytes Percent Auto 16.5 % (20.5-60.0); Mean Corpuscular HGB Conc 32.5 g/dL (29.9-35.2); Mean Corpuscular Hemoglobin 34.9 pg (26.7-34.0); Mean Corpuscular Volume 107.2 fL (81.0-99.0); Mean Platelet Volume 11.3 fL (9.5-13.5); Monocytes Absolute Auto 1.1 10^3/uL (0.3-0.8); Monocytes Percent Auto 13.4 % (1.7-12.0); Neutrophils Absolute Auto 5.2 10^3/uL (1.4-6.5); Neutrophils Percent Auto 61.9 % (43.0-75.0); Platelet Count 421 10^3/uL (150-450); Red Blood Count 2.35 10^6/uL (4.20-5.40); Red Cell Distribution Width 16.6 % (11.0-15.0); White Blood Count 8.5 10^3/uL (4.0-11.0)
[2024-05-12 05:51] LABS: Alanine Aminotransferase 17 U/L (14-59); Albumin Globulin Ratio 0.8; Albumin Level 2.8 g/dL (3.4-5.0); Alkaline Phosphatase 108 U/L (46-116); Anion Gap 11.4; Aspartate Amino Transferase 20 U/L (15-37); BUN Creatinine Ratio 27.4; Bilirubin Total 0.4 mg/dL (0.2-1.0); Carbon Dioxide 29.5 mmol/L (21.0-32.0); Chloride 100 mmol/L (98-107); Estimated GFR (African America 28 (>=60); Estimated GFR (Non-African Ame 23 (>=60); Globulin 3.3 g/dL; Glucose 104 mg/dL (74-106); Potassium 3.9 mmol/L (3.5-5.1); Sodium 137 mmol/L (136-145); Total Protein 6.1 g/dL (6.4-8.2)
--- NOTE | 2024-05-12 07:00 | US_ITS ---
The [address] [address] Patient Name: GOSIA CHEATHAM MRN: [id number] date: 1945 Sex: F Assigned Patient Location: [place] Current Patient Location: [place] Accession/Order Number: [id number] Exam Date: 05/12/2024 07:30 Report Date: 05/12/2024 08:37 At the request of: SHAIKH JIMENEZ Procedure: US venous doppler LE BI Ultrasound venous duplex scan, bilateral lower extremities CLINICAL: Left worse than right leg edema. TECHNIQUE: Borden-scale, color-flow, and Doppler examination of both legs was performed with and without provocative maneuvers. FINDINGS: Comparison: None. Examination is very limited due to large body habitus and some veins are not visualized. Sonographic examination of both lower extremity deep venous systems to include the common femoral veins, superficial femoral veins, and popliteal veins demonstrates normal compressibility, color-flow, phasic variation, and augmentation. The origins of the greater saphenous veins on both sides demonstrate normal compression, with normal color-flow at the origins of the proximal profunda femoris veins. There is normal color-flow in the anterior tibial, posterior tibial, and peroneal veins on both sides. Small saphenous veins in both calves demonstrates normal compressibility. Suboptimally visualized posterior tibial and anterior tibial veins bilaterally demonstrate grossly normal compressibility. Peroneal veins not seen on either side. There is subcutaneous edema in both calves. US/US venous doppler LE BI IMPRESSION: 1. No sonographic evidence of deep venous thrombosis in either lower extremity. 2. Nonspecific subcutaneous edema in both calves. Electronically authenticated by: JONATHAN CABRAL Date: 05/12/2024 08:37
[2024-05-12] MEDS: AMMONIUM LACTATE 226 GM BOTTLE 1 APPLIC TOPICAL (08:55)
[2024-05-12] MEDS: KETOCONAZOLE 15 APPLIC TUBE TOPICAL (08:56)
--- NOTE | 2024-05-12 09:00 | CM.NOTE ---
Rounds made with Dr. Xiong, awaiting results of venous Doppler. 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
[2024-05-12] MEDS: MULTIVITAMIN TABLET 1 TAB PO (09:03)
[2024-05-12] MEDS: SPIRONOLACTONE 25 MG TABLET PO (09:03)
[2024-05-12] MEDS: CALCIUM CARBONATE 600 MG/VITAMIN D3 400 IU TABLET 1 TAB PO (09:03)
[2024-05-12] MEDS: FEBUXOSTAT 40 MG TABLET PO (09:03)
[2024-05-12] MEDS: APIXABAN 5 MG TABLET 10 MG PO (09:03)
[2024-05-12] MEDS: ASPIRIN 81 MG TAB.CHEW PO (09:03)
[2024-05-12] MEDS: FOLIC ACID 1 MG TABLET PO (09:03)
[2024-05-12] MEDS: FUROSEMIDE 40 MG TABLET PO (09:03)
[2024-05-12] MEDS: OMEPRAZOLE 40 MG CAPSULE.DR PO (09:03)
--- NOTE | 2024-05-12 09:04 | P.DS_ITS ---
DS: Providers Provider Date of admission: 05/11/24 07:46 Primary care physician: PEPE BOWER DO Admitting clinician: Shaikh Tyrese Attending physician on admission: Shaikh Tyrese Attending physician on discharge: Shaikh Tyrese Discharging clinician: Shaikh Tyrese Anticipated date of discharge: 05/12/24 DS: Diagnosis Discharge Diagnosis (1) Suspected venous thromboembolism (VTE): Assessment and plan: Normal VQ scan, no evidence of DVT on US. Low probability of VTE - stop eliquis especially due to prior hx of PUD/GIB. (2) Respiratory failure with hypoxia: Assessment and plan: Resolved. Suspected intermittent hypoxia, especially at night is due to underlying JENNY. Will need outpatient w/u Qualifiers: Chronicity: acute Qualified Code(s): J96.01 - Acute respiratory failure with hypoxia (3) Chest pain: Assessment and plan: Improved. PE ruled out. Trop x 2 negative. Pain is likely non cardiac as its pleuritic. Outpatient w/u for [facility] if deemed necessary. Qualifiers: Chest pain type: intercostal pain Qualified Code(s): R07.82 - Inte rcostal pain (4) D-dimer, elevated: Assessment and plan: No evidence of VTE on VQ/DVT LE. elevation likely due to obesity/age/CKD (5) (HFpEF) heart failure with preserved ejection fraction: Assessment and plan: At baseline. Monitor. C/w home medications. Qualifiers: Heart failure chronicity: chronic Qualified Code(s): I50.32 - Chronic diastolic (congestive) heart failure (6) CKD stage 3a, GFR 45-59 ml/min: Assessment and plan: Renal function stable. Monitor. (7) Afib: Assessment and plan: HR controlled. Not on AC due to prior hx of GIB. Qualifiers: Atrial fibrillation type: persistent (not longstanding) Qualified Code(s): I48.19 - Other persistent atrial fibrillation (8) Prolonged immobilization: Assessment and plan: PT/OT tx as outpatient. (9) Macrocytic anemia: Assessment and plan: Required one unit PRBC. Hb chronically low likely due to CKD. Anemia w/u - normal iron profile/folate (10) Major depressive disorder: Assessment and plan: c/w trazodone. Qualifiers: Major depression recurrence: recurrent Active/Remission status: in full remission Qualified Code(s): F33.42 - Major depressive disorder, recurrent, in full remission (11) Gout: Assessment and plan: C/w febuxostat Qualifiers: Gout site: unspecified site Gout etiology: unspecified cause Chronicity: chronic Presence of tophus: without tophus Qualified Code(s): M1A.9XX0 - Chronic gout, unspecified, without tophus (tophi) (12) Obesity: Assessment and plan: Will benefit from weight loss. Caloric restrictions/increasing physical activity recomended Qualifiers: Obesity type: due to excess calories Obesity classification: adult class 3 (BMI >= 40) Serious obesity comorbidity presence: without serious comorbidity Body mass index: BMI 45.0-49.9 Qualified Code(s): E66.01 - Morbid (severe) obesity due to excess calories; Z68.42 - Body mass index [BMI] 45.0- 49.9, adult (13) Hypothyroid: Assessment and plan: C/w levothyroxine. 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 Patient denied cough, fever, chest wall trauma. Patients work up in ED revealed elevated d dimer. She was unable to get CTA due to her renal function. She was started on therapeutic Lovenox overnight to treat suspected PE until this could be confirmed with further testing. i switched her to Eliquis as Lovenox is best avoided with underlying CKD. Patient underwent VQ scan and B/l LE US --> no PE or DVT. Patient's chest pain is likely non cardiac as its pleuritic. She also had negative cardiac enzymes and her EKG did not show acute ischemic changes. She was noted to have Afib which she has a prior hx of. Pt was also noted to have anemia and required one unit blood for hb of 7.5. Anemia w/u is c/w anemia of CKD. Patient is stable for d/c. f/u with PCP in 1-2 weeks Status at Discharge Functional status at discharge: bed bound Overall status at discharge: patient is back to baseline Time Spent with Patient Time attestation: Total time spent providing and/or coordinating discharge services: Time spent: greater than 30 minutes Exam Constitutional Vital Signs, click to edit/add: Last Vital Signs Temp 98.3 F 05/12/24 08:24 Pulse 96 H 05/12/24 08:24 Resp 16 05/12/24 08:30 BP 111/56 05/12/24 08:24 Pulse Ox 94 L 05/12/24 08:24 O2 Del Method Room Air 05/12/24 08:24 O2 Flow Rate 1 05/12/24 04:29 Documenting provider has reviewed patient's vital signs: yes Common normals: no apparent distress and oriented x3 General appearance: cooperative and comfortable Nutritional appearance: obese Chest Chest: tenderness sternum and costochondral junction Respiratory Common normals: normal respiratory effort and clear to auscultation bilaterally Effort & inspection: able to speak in complete sentences Auscultation: clear to auscultation bilaterally and diminished lung sounds Cardio Common normals: regular rate, S1 normal heart sound and S2 normal heart sound Rate: regular rate Rhythm: abnormal rhythm Heart sounds: S1 normal and S2 normal Neuro Common normals: oriented x3, moves all extremities and no focal motor deficits Psych Common normals: mental status grossly normal, denies hallucinations, denies homicidal ideation and denies suicidal ideation DS: Data Data Completed and Pending Labs on day of discharge: Labs from last 24 hours 05/12/24 05/11/24 05/11/24 05:19 13:59 12:58 WBC 8.5 RBC 2.35 L Hgb 8.2 L 7.5 L Hct 25.2 L 23.9 L* MCV 107.2 H MCH 34.9 H MCHC 32.5 RDW 16.6 H Plt Count 421 MPV 11.3 Neut % (Auto) 61.9 Lymph % (Auto) 16.5 L Cook % (Auto) 13.4 H Eos % (Auto) 4.6 Baso % (Auto) 1.4 Neut # (Auto) 5.2 Lymph # (Auto) 1.4 Cook # (Auto) 1.1 H Eos # (Auto) 0.4 Baso # (Auto) 0.1 Abs Immat Gran (auto) 0.19 H Imm/Tot Granulo (auto) 2.2 H Sodium 137 Potassium 3.9 Chloride 100 Carbon Dioxide 29.5 Anion Gap 11.4 BUN 57.0 H Creatinine 2.08 H Est GFR ( Amer) 28 L Est GFR (Non-Af Amer) 23 L BUN/Creatinine Ratio 27.4 Glucose 104 Calcium 9.0 Iron 69.0 TIBC 293.0 % Saturation 23.5 Ferritin 154.0 Total Bilirubin 0.4 AST 20 ALT 17 Alkaline Phosphatase 108 Total Protein 6.1 L Albumin 2.8 L Globulin 3.3 Albumin/Globulin Ratio 0.8 Folate 29.00 Blood Type O Negative Antibody Screen Negative Crossmatch See Detail Discharge Plan Discharge Disposition: Xfer [facility] Discharge Medications: Continued aspirin [Adult Low Dose Aspirin] 81 mg tablet,delayed release (DR/EC) 81 mg PO DAILY calcium carbonate-vitamin D3 [Calcium 600 + D(3)] 600 mg-10 mcg (400 unit) tablet 1 tab PO BID febuxostat 40 mg tablet 40 mg PO DAILY folic acid 1 mg tablet 1 mg PO DAILY furosemide 20 mg tablet 40 mg PO DAILY gabapentin 300 mg capsule 300 mg PO Q8H levothyroxine [Euthyrox] 100 mcg tablet 100 mcg PO DAILY liothyronine 5 mcg tablet 5 mcg PO BID multivitamin [Daily Multi-Vitamin] Tablet 1 tab PO DAILY tramadol 50 mg tablet 25 mg PO Q6H PRN (Reason: pain) ergocalciferol (vitamin D2) [Drisdol] 1,250 mcg (50,000 unit) capsule 1,250 mcg PO QWEEK Rx Instructions: on sunday alum-mag hydroxide-simeth [Advanced Antacid-Antigas] 200-200-20 mg/5 mL suspension 5 ml PO Q4H PRN (Reason: indigestion) budesonide-formoterol [Breyna] 160-4.5 mcg/actuation HFA aerosol inhaler 2 inh inhalation BID acetaminophen [Aphen] 325 mg tablet 650 mg PO DAILY pantoprazole 40 mg tablet,delayed release (DR/EC) 40 mg PO DAILY spironolactone [Aldactone] 25 mg tablet 25 mg PO DAILY metolazone 5 mg tablet 5 mg PO DAILY Rx Instructions: 40 minutes before Lasix ammonium lactate 12 % lotion 1 applic topical BID ketoconazole 2 % cream 1 applic topical BID nystatin [Nyamyc] 100,000 unit/gram powder 1 applic topical BID PRN (Reason: skin irritation) trazodone 100 mg tablet 125 mg PO DAILY Print Language: Belarusian Forms: Portal Instructions Follow Up Appointments: f/u with PCP in 1 week
[2024-05-12] MEDS: LIOTHYRONINE SODIUM 5 MCG TABLET PO (09:05)
[2024-05-12] MEDS: METOLAZONE 2.5 MG TABLET 5 MG PO (09:07)
--- NOTE | 2024-05-12 11:01 | SWNOTE1 ---
Pt is from [facility]. Pt is ready for dc back today. SW set up [facility] and pt will return [facility] terminal today at 12:30. SW notified [facility] and nursing of time.
[2024-05-12] MEDS: BUDESONIDE 0.5 MG/2 ML AMPULE NEB IH (11:04)
--- NOTE | 2024-05-12 11:59 | CM.NOTE ---
Medicare Outpatient Observation Notice discussed with pt, pt verbalizes understanding and signs paper. Original given to pt and copy placed on pt's chart.
[2024-05-13 04:07] LABS: Transferrin 235 mg/dL (192-364)
[2024-05-13 09:12] LABS: Vitamin B12 100 pg/mL (232-1245)
== END 2024-05-12 13:00 ==
LOC: ER 05:30 → MS 07:57
PROVIDERS: Registered Nurse; Admitting Provider Internal Medicine; Emergency Provider Internal Medicine; PCP Family Medicine; Visit Provider Internal Medicine
DX: R07.82 Intercostal pain (principal); J96.01 Acute respiratory failure with hypoxia; I50.32 Chronic diastolic (congestive) heart failure; N18.31 Chronic kidney disease, stage 3a; I48.19 Other persistent atrial fibrillation; F33.42 Major depressive disorder, recurrent, in full remission; M1A.9XX0 Chronic gout, unspecified, without tophus (tophi); E66.01 Morbid (severe) obesity due to excess calories; E03.9 Hypothyroidism, unspecified; Z68.42 Body mass index [BMI] 45.0-49.9, adult; D53.9 Nutritional anemia, unspecified; G47.33 Obstructive sleep apnea (adult) (pediatric); R79.1 Abnormal coagulation profile; D63.1 Anemia in chronic kidney disease; Z87.11 Personal history of peptic ulcer disease; Z74.01 Bed confinement status; Z79.890 Hormone replacement therapy; Z79.899 Other long term (current) drug therapy; Z99.3 Dependence on wheelchair
CPT/HCPCS: 36415; 36430; 71045; 78582; 80048; 80053; 80061; 82607; 82728; 82746; 83036; 83540; 83550; 83880; 84443; 84466; 84484; 85007; 85014; 85018; 85025; 85027; 85378; 86850; 86900; 86901; 86923; 93005; 93970; 94640; 94761; 96372; 96374; 96375; 99284; A9540; A9567; G0378; J1650; J1940; J2405; P9016

== ENCOUNTER 2024-05-13 19:24 | Emergency (ER) | payer MEDICARE, SELFPAY ==
[2024-05-13] VITALS (21 sets, daily range): BP systolic 94–152; BP diastolic 35–79; PULSE 75–84; TEMP 36.6; O2SAT 80–100
--- NOTE | 2024-05-13 19:41 | ECG_ITS ---
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
--- NOTE | 2024-05-13 19:41 | XR_ITS ---
The [address] [address] Patient Name: GOSIA CHEATHAM MRN: [id number] date: 1945 Sex: F Assigned Patient Location: ER Current Patient Location: ED.MAIN Accession/Order Number: [id number] Exam Date: 05/13/2024 20:03 Report Date: 05/13/2024 20:21 At the request of: ANAHI LAKHANI Procedure: XR chest 1V EXAM: XR chest 1V HISTORY: chest pain COMPARISON: 05/11/2024. TECHNIQUE: Portable chest one view FINDINGS: Low lung volumes with vascular crowding and perihilar and lower lobe atelectasis. No consolidation, effusion, or pneumothorax. There is cardiomegaly, with probable mild vascular congestion. No ariella pulmonary edema. XR/XR chest 1V IMPRESSION: 1. Expiratory chest. No consolidation. 2. Cardiomegaly with probable mild pulmonary vascular congestion. No ariella pulmonary edema. Electronically authenticated by: JONATHAN CABRAL Date: 05/13/2024 20:21
--- NOTE | 2024-05-13 19:42 | CT_ITS ---
The [address] [address] Patient Name: GOSIA CHEATHAM MRN: [id number] date: 1945 Sex: F Assigned Patient Location: ED.MAIN Current Patient Location: Accession/Order Number: [id number] Exam Date: 05/13/2024 20:08 Report Date: 05/13/2024 21:01 At the request of: ANAHI LAKHANI Procedure: CT abdomen pelvis wo con EXAMINATION: CT abdomen pelvis wo con, 05/13/2024 8:08 PM EDT HISTORY: abdominal pain COMPARISON: CT abdomen and pelvis 02/01/2021. TECHNIQUE: CT scan of the abdomen and pelvis was performed without IV contrast. CT dose reduction technique was used, including Automated Exposure Control. FINDINGS: LOWER CHEST: Normal. LIVER: Stable moderate pneumobilia. Mildly enlarged measuring approximately 20 cm in length. GALLBLADDER AND BILIARY SYSTEM: Status post cholecystectomy. There is associated mild biliary ductal dilatation. SPLEEN: Multiple calcified granulomas. PANCREAS: Moderate fatty replacement. ADRENAL GLANDS: Normal. KIDNEYS AND URETERS: Mild bilateral perinephric stranding consistent with medical renal disease. No stones or hydronephrosis. There is mild left renal atrophy. VASCULATURE: Mild atherosclerotic calcification. There is a stable surgical device in the region of the inferior vena cava. RETROPERITONEUM AND LYMPH NODES: No adenopathy. GASTROINTESTINAL TRACT/MESENTERY: Stable postsurgical changes consistent with partial gastrectomy, gastrojejunostomy and hepaticojejunostomy. The pneumobilia noted above is likely related to the hepaticojejunostomy. There is also evidence of previous partial small bowel obstruction in the left abdomen with anastomosis. The bowel loops are nondistended. There are multiple diverticula in the colon with no acute diverticulitis. Normal mesentery/peritoneum. Status post appendectomy. BLADDER: Low-lying with a probable small cystocele. REPRODUCTIVE SYSTEM: Status post hysterectomy. BODY WALL: Small fat-containing supraumbilical ventral hernia with diastasis of rectus abdominis muscles. There is subcutaneous edema in the body wall, similar to the previous study. BONES: Right hip arthroplasty in place. Severe degenerative changes of the left hip. There are moderate to severe multilevel degenerative changes of the lumbar spine and there are postsurgical changes consistent with laminectomy and posterior fixation at L3-L4. There is moderate dextroscoliosis of the lumbar spine. CT/CT abdomen pelvis wo con IMPRESSION: 1. No acute process in the abdomen or pelvis by limited noncontrast CT. 2. Stable postsurgical changes as described above including evidence of hepaticojejunostomy with associated pneumobilia. 3. Hepatomegaly. 4. Subcutaneous edema in the body wall, and small fat-containing supraumbilical ventral hernia with diastasis of the rectus abdominus muscles. Electronically authenticated by: NAHUM SAHU Date: 05/13/2024 21:01
--- OUTSIDE RECORDS SUMMARY | 2024-05-13 19:42 | XMS_ITS | CCD ---
Author Organization [facility] Care Team Providers Care Fire Captain Name Role Phone ELFEGO SIMMS Admitting Unavailable NASREEN MARY Primary Care Unavailable PEDRO CARLSON Unavailable GIOVANA PONCE Attending Unavailable [place] Procedure Practitioner Unavailab SOY [place] Surgeon Unavailable Unavailable Primary Care Provider UnavailHelene [place] Unavailable MARY ., DR NASREEN Marie Primary Care Unavailable MARY ., DR NASREEN Marie Consulting Unavailable MARY ., DR NASREEN Marie Attending Unavailable MARY ., DR NASREEN Marie Admitting Unavailable WILBER LEACH Consulting Unavailable ANAHI LAKHANI Consulting Unavailable BETH CERON Consulting Unavailable MARY ., DR NASREEN Marie Consulting Unavailable MARY ., DR NASREEN Marie Attending Unavailable MARY ., DR NASREEN Marie Admitting Unavailable MARY ., DR NASREEN Marie Primary Care Unavailable MIRNA, DR CEDRIC Richardson Consulting UnavailGREGORIO Angelo Consulting Unavailable PIERCE MURGUIA Consulting Unavailable MARY ., DR NASREEN Marie Primary Care Unavailable MARY ., DR NASREEN Marie Consulting Unavailable MARY ., DR NASREEN Marie Attending Unavailable MARY ., DR NASREEN Marie Admitting Unavailable Charlene Fabian Consulting Unavailable CORNELIA, DR NAHUM Quick Consulting Unavailable BAKARI ., ALETA KERN Consulting UnavailSHAIKH Zen Garay Consulting Unavailable KERMIT THAPA Consulting Unavailable FAROOQ, TANK Consulting Unavailable Allergies Allergy Classification Reported Allergen(s) Allergy Type Date of Onset Reaction(s) Facility (2 sources) Adhesive Tape; Translations: [ADHESIVE TAPE] Propensity to adverse reactions (disorder) [facility] Repository (3 sources) Codeine; Translations: [codeine] Drug Allergy [facility] Repository (3 sources) diazePAM; Translations: [Valium] Drug Allergy [facility] Repository (2 sources) Morphine; Translations: [morphine] Drug Allergy 013 [facility] Repository (4 sources) Prochlorperazine; Translations: [Compazine] Drug Allergy 013 Unknown [facility] Repository (1 source) Acetaminophen Drug Allergy Unknown [facility] [employer] Other (2 sources) Codeine Drug Allergy Unknown [facility] [employer] Other (1 source) Codeine Drug Allergy Unknown [facility] [employer] Other (1 source) Morphine Drug Allergy Hallucinations [facility] [employer] Other (2 sources) Prochlorperazine Drug Allergy Unknown [facility] [employer] Other (1 source) Tape, Permeable Adhesive Propensity to adverse reactions Unknown [facility] [employer] Other (1 source) Allopurinol Drug Allergy 014 [facility] Repository (1 source) Morphine Drug Allergy 013 [facility] Repository (1 source) Adhesive Tape; Translations: [Tape] Propensity to adverse reactions (disorder) [facility] Repository Medications Current Medications Medication Drug Class(es) Dates Sig (Normalized) Sig (Original) acetaminophen 300 mg / codeine phosphate 30 mg oral tablet (1 source) Opioid Agonist Start: 03-30-2021 take 1 tablet by mouth every six hours Acetaminophen-Cod eine #3 300-30 MG 1 tablet as needed Orally every 6 hrs for 7 days Mar, Active acetaminophen 325 mg / HYDROcodone bitartrate 5 mg oral tablet (1 source) Opioid Agonist take 1 tablet by mouth every six hours HYDROcodone-Aceta minophen 5-325 MG 1 tablet as needed Orally every 6 hrs Active ALPRAZolam 0.5 mg oral tablet (1 source) Benzodiazepine Start: 04-23-2019 take 0.5 tablet by mouth once daily Xanax 0.5 MG take 1/2 tablet half hour before scan. May repeat if needed Orally once a day for 1 days Apr, Active biotin 5 mg oral capsule (1 source) take 1 capsule by mouth every twenty-four hours Biotin 5000 5 MG 1 capsule Orally Once a day Active Calcium Carbonate (1 source) Caltrate 600 150 0 (600 Ca) MG Orally Active diclofenac sodium 0.01 mg/mg topical gel (3 sources) Nonsteroidal Anti-inflammatory Drug Start: 12-01-2019 Diclofenac Sodium 1 % apply 1-2 grams to affected area Transdermal Twice a day for 30 day(s) Nov, Active Start: 02-19-2019 Diclofenac Sod ium 1 % apply 1-2 grams to the affected area Transdermal 2-3 times daily for 30 day(s) Feb, Active take 1 tablet by leo th every twelve hours Diclofenac Sodium 75 MG 1 tablet with food or milk Orally Twice a day for 90 days Active fluocinonide 0.0005 mg/mg topical gel (1 source) Corticosteroid Start: 08-20-2018 Fluocinonide 0.05 % apply 1-2 grams Externally up to 3x's per week for therapy Aug, Active hydroCHLOROthiazide 50 mg oral tablet (1 source) Thiazide Diuretic take 1 tablet by mouth every twenty-fo ur hours hydroCHLOROthiazide 50 MG 1 tablet in the morning Orally Once a day Active Multi For Her 50+ - (1 source) Multi For Her 50 + - Orally Active traMADol hydrochloride 50 mg oral tablet (2 sources) Opioid Agonist Start: 03-26-2019 traMADol HCl 50 MG 1 tablet as needed for severe pain every 4-6 hours for 7 days Mar, Active traZODone hydrochloride 150 mg oral tablet (1 source) Serotonin Reuptake Inhibitor take 1 tablet by mouth every twenty-fo ur hours traZODone HCl 150 MG 1 tablet at bedtime Orally Once a day Active trospium chloride 20 mg oral tablet (1 source) Cholinergic Muscarinic Antagonist take 1 tablet by mouth every twenty-fo ur hours Trospium Chloride 20 MG 1 tablet at bedtime on an empty stomach Orally Once a day Active vitamin b12 0.1 mg oral tablet (1 source) Vitamin B12 Vitamin B12 100 MCG Orally Active Vitamin D3 [id number] UNIT/GM (1 source) Vitamin D3 79013 [id number] UNIT/GM Active Completed/Discontinued Medications Medication Drug Class(es) Dates Sig (Normalized) Sig (Original) acetaminophen 325 mg / oxyCODONE hydrochloride 5 mg oral tablet (2 sources) Opioid Agonist Start: 07-16-2018 Percocet 5-325 MG 1 tablet every 6 hours as needed for severe pain Orally every 6 hrs for 5 days Jul, Not-Taking hydrOXYzine pamoate 25 mg oral capsule (1 source) Antihistamine Start: 07-16-2018 take 1 capsule by mouth every eight hours Vistaril 25 MG 1 capsule as needed Orally every 8 hrs for 20 days Jul, Not-Taking Medrol Dose Pack (1 source) Start: 07-23-2018 Medrol Dose Pack as directed Jul, Not-Taking Problems Active Problems Problem Classification Problem Date Documented Da te Episodic/Chronic Acquired foot deformities (1 source) Acquired hammer toe of left foot; Translations: [Other hammer toe(s) (acquired), left foot] Chronic Acquired foot deformities (1 source) Hammer toe; Translations: [Other hammer toe(s) (acquired), right foot] Chronic Asthma (1 source) Unspecified asthma with status asthmaticus; Translations: [UNS ASTHMA W/STATUS ASTHMATICUS] Onset: 10-10-2022 Chronic Calculus of urinary tract (1 source) Personal history of urinary calculi; Translations: [PERSONAL HISTORY OF URINARY CALCULI] Onset: 10-10-2022 Episodic Cardiac dysrhythmias (1 source) Paroxysmal atrial fibrillation; Translations: [PAROXYSMAL ATRIAL FIBRILLATION] Onset: 10-10-2022 Chronic Chronic ulcer of skin (1 source) Ulcer of toe; Translations: [Non-pressure chronic ulcer of other part of left foot limited to breakdown of skin] Chronic Congestive heart failure; nonhypertensive (2 sources) Acute right heart failure; Translations: [Heart failure, unspecified] Onset: 08-18-2022 Chronic Deficiency and other anemia (1 source) Iron deficiency anemia, unspecified; Translations: [IRON DEFICIENCY ANEMIA UNSPECIFIED] Onset: 10-10-2022 Episodic Esophageal disorders (1 source) Gastro-esophageal reflux disease without esophagitis; Translations: [GERD WITHOUT ESOPHAGITIS] Onset: 10-10-2022 Chronic Gastroduodenal ulcer (except hemorrhage) (1 source) Personal history of peptic ulcer disease; Translations: [PERSONAL HX PEPTIC ULCER DISEASE] Onset: 10-10-2022 Episodic Genitourinary symptoms and ill-defined conditions (1 source) Personal history of urinary (tract) infections; Translations: [PERS HX URINARY TRACT INFECTIONS] Onset: 10-10-2022 Episodic Gout and other crystal arthropathies (1 source) Gout, unspecified; Translations: [GOUT UNSPECIFIED] Onset: 01-31-2022 Chronic Hypertension with complications and secondary hypertension (1 source) Hypertensive heart and chronic kidney disease with heart failure and stage 1 through stage 4 chronic kidney disease, or unspecified chronic kidney disease; Translations: [HTN HRT CKD W/HF STAGE 1-4/UNS CKD] Onset: 10-10-2022 Chronic Influenza (1 source) Influenza due to other identified influenza virus with other respiratory manifestations; Translations: [FLU D/T OTH ID FLU VIR OTH RSP MANF] Onset: 08-18-2022 Episodic Menopausal disorders (1 source) Hormone replacement therapy; Translations: [HORMONE REPLACEMENT THERAPY] Onset: 10-10-2022 Episodic Mood disorders (1 source) Major depressive disorder, single episode, unspecified; Translations: [BLESSING DEPRESS D/O SINGLE EPIS UNS] Onset: 01-31-2022 Chronic Nutritional deficiencies (2 sources) Vitamin D deficiency, unspecified; Translations: [Mild protein-calorie malnutrition] Onset: 08-18-2022 Chronic Osteoarthritis (2 sources) Osteoarthritis of hip; Translations: [Unilateral primary osteoarthritis, right hip] Onset: 10-10-2022 Chronic Other aftercare (1 source) Other long term care phlebotomist (current) drug therapy; Translations: [OTH MCFP CURRENT DRUG THERAPY] Onset: 10-10-2022 Episodic Other aftercare (1 source) vermin exterminator (current) use of aspirin; Translations: [OFFICE CORRESPONDENT CURRENT USE OF ASPIRIN] Onset: 10-10-2022 Episodic Other connective tissue disease (1 source) History of repair of hip joint; Translations: [Presence of right artificial hip joint] Chronic Other connective tissue disease (1 source) Presence of right artificial hip joint; Translations: [PRESENCE RIGHT ARTIFICIAL HIP JOINT] Onset: 08-18-2022 Chronic Other connective tissue disease (1 source) Fibromyalgia; Translations: [FIBROMYALGIA] Onset: 10-10-2022 Episodic Other connective tissue disease (1 source) Muscle weakness (generalized); Translations: [MUSCLE WEAKNESS GENERALIZED] Onset: 10-10-2022 Episodic Other connective tissue disease (1 source) Arthrodesis status; Translations: [ARTHRODESIS STATUS] Onset: 10-10-2022 Episodic Other diseases of bladder and urethra (1 source) Neuromuscular dysfunction of bladder, unspecified; Translations: [NEUROMUSCULR DYSFNCTION BLADDER UNS] Onset: 10-10-2022 Chronic Other diseases of veins and lymphatics (1 source) Lymphedema, not elsewhere classified; Translations: [LYMPHEDEMA NOT ELSEWHERE CLASSIFIED] Onset: 01-31-2022 Chronic Other nervous system disorders (1 source) Chronic pain; Translations: [Other chronic pain] Chronic Other nervous system disorders (1 source) Complex regional pain syndrome I of right lower limb; Translations: [COMPLEX RGN PAIN SYND I RT LOW LIMB] Onset: 10-10-2022 Chronic Other nervous system disorders (1 source) Metabolic encephalopathy; Translations: [METABOLIC ENCEPHALOPATHY] Onset: 08-18-2022 Chronic Other nervous system disorders (1 source) Complex regional pain syndrome I of unspecified lower limb; Translations: [COMPLX RGN PAIN SYND I UNS LOW LIMB] Onset: 08-18-2022 Chronic Other nervous system disorders (1 source) Complex regional pain syndrome I, unspecified; Translations: [COMPLEX REGION PAIN SYND I UNS] Onset: 08-18-2022 Chronic Other nervous system disorders (1 source) Other chronic pain; Translations: [OTHER CHRONIC PAIN] Onset: 08-18-2022 Chronic Other non-traumatic joint disorders (1 source) Pain in right hip; Translations: [PAIN IN RIGHT HIP] Onset: 08-18-2022 Episodic Other nutritional; endocrine; and metabolic disorders (1 source) Morbid (severe) obesity due to excess calories; Translations: [MORBID SEVERE OBES D/T EXCESS LISBET] Onset: 10-10-2022 Chronic Other nutritional; endocrine; and metabolic disorders (1 source) Body mass index (BMI) 40.0-44.9, adult; Translations: [BODY MASS INDEX BMI 40.0-44.9 ADULT] Onset: 10-10-2022 Chronic Other nutritional; endocrine; and metabolic disorders (1 source) Body mass index (BMI) 37.0-37.9, adult; Translations: [BODY MASS INDEX BMI 37.0-37.9 ADULT] Onset: 01-31-2022 Chronic Other nutritional; endocrine; and metabolic disorders (1 source) Adult failure to thrive; Translations: [ADULT FAILURE TO THRIVE] Onset: 10-10-2022 Episodic Phlebitis; thrombophlebitis and thromboembolism (1 source) Personal history of other venous thrombosis and embolism; Translations: [PERS HX OTH VENOUS THROMBOSIS AND EMBO] Onset: 10-10-2022 Episodic Pneumonia (except that caused by tuberculosis or sexually transmitted disease) (4 sources) Pneumonia, unspecified organism; Translations: [PNEUMONIA UNSPECIFIED ORGANISM] Onset: 10-04-2022 Episodic Pulmonary heart disease (1 source) Personal history of pulmonary embolism; Translations: [PERSONAL HISTORY PULMONARY EMBOLISM] Onset: 10-10-2022 Episodic Residual codes; unclassified (1 source) Acquired absence of other specified parts of digestive tract; Translations: [ACQ ABSENCE OTH PART DIGESTV TRACT] Onset: 10-10-2022 Episodic Residual codes; unclassified (1 source) Acquired absence of both cervix and uterus; Translations: [ACQUIRED ABSENCE BOTH CERVIX AND UTERUS] Onset: 10-10-2022 Episodic Residual codes; unclassified (1 source) Do not resuscitate; Translations: [DO NOT RESUSCITATE] Onset: 08-18-2022 Episodic Respiratory failure; insufficiency; arrest (adult) (1 source) Acute respiratory failure with hypoxia; Translations: [ACUTE RESPIRATORY FAIL W/HYPOXIA] Onset: 08-18-2022 Episodic Spondylosis; intervertebral disc disorders; other back problems (1 source) Solitary sacroiliitis; Translations: [Sacroiliitis, not elsewhere classified] Chronic Thyroid disorders (1 source) Hypothyroidism, unspecified; Translations: [HYPOTHYROIDISM UNSPECIFIED] Onset: 10-10-2022 Chronic Unclassified (1 source) CHRN KIDNEY DISEASE STG 3 UNSP; Translations: [CHRN KIDNEY DISEASE STG 3 UNSP] Onset: 10-10-2022 Unclassified (1 source) CONTACT W/AND (SUSP) EXPOS COVID-19; Translations: [CONTACT W/AND (SUSP) EXPOS COVID-19] Onset: 10-10-2022 Urinary tract infections (4 sources) Urinary tract infection, site not specified; Translations: [UTI SITE NOT SPECIFIED] Onset: 08-04-2022 Episodic Past or Other Problems Problem Classification Problem Date Documented Date Episodic/Chronic Acute and unspecified renal failure (1 source) Acute kidney failure, unspecified; Translations: [ACUTE KIDNEY FAILURE UNSPECIFIED] Onset: 01-31-2022 Episodic Complications of surgical procedures or medical care (1 source) Periprosthetic fracture; Translations: [Periprosthetic fracture around internal prosthetic right hip joint, subsequent encounter] Episodic Deficiency and other anemia (1 source) Vitamin B12 deficiency anemia, unspecified; Translations: [VITAMIN B12 DEFICIENCY ANEMIA UNS] Onset: 01-31-2022 Episodic Malaise and fatigue (1 source) Weakness; Translations: [WEAKNESS] Onset: 01-31-2022 Episodic Nonspecific chest pain (4 sources) Chest pain, unspecified; Translations: [CHEST PAIN UNSPECIFIED] Onset: 01-21-2022 Episodic Other connective tissue disease (1 source) Trochanteric bursitis of right hip; Translations: [Trochanteric bursitis, right hip] Episodic Other lower respiratory disease (1 source) Shortness of breath; Translations: [SHORTNESS OF BREATH] Onset: 01-31-2022 Episodic Residual codes; unclassified (1 source) Generalized edema; Translations: [GENERALIZED EDEMA] Onset: 01-31-2022 Episodic Results Test Name Value Interpretation Reference Range Facility [facility] [id number] Normal [facility] CBC AUTO DIFFon 10-06-2022 BASO # 0.0 103/ul Normal 0.0-0.1 [facility] Comment on above: Performed By: #### C MP #### [facility] [address] [place] [address] Dr. Charlotte Argueta Basophils/100 WBC (Bld) 0.1 % Critically low 0.2-2.0 [facility] Comment on above: Performed By: #### C MP #### [facility] [address] [place] [address] Dr. Charlotte Argueta EO # 0.0 103/ul Normal 0.0-0.7 [facility] Comment on above: Performed By: #### C MP #### [facility] [address] [place] [address] Dr. Charlotte Argueta Eosinophils/100 WBC (Bld) 0.0 % Critically low 0.9-7.0 [facility] Comment on above: Performed By: #### C MP #### [facility] [address] [place] [address] Dr. Charlotte Argueta Erythrocyte distribution width (RBC) [Ratio] 15.4 % Critically high 11.0-15.0 [facility] Comment on above: Performed By: #### C MP #### [facility] [address] [place] [address] Dr. Charlotte Argueta Hematocrit (Bld) [Volume fraction] 26.1 % Critically low 36.0-48.0 [facility] Comment on above: Performed By: #### C MP #### [facility] [address] [place] [address] Dr. Charlotte Argueta Hemoglobin (Bld) [Mass/Vol] 9.3 g/dL Critically low 12.0-16.0 [facility] Comment on above: Performed By: #### C MP #### [facility] [address] [place] [address] Dr. Charlotte Argueta IG # 0.13 10e3/ul Critically high 0.00-0.03 [facility] Comment on above: Performed By: #### C MP #### [facility] [address] [place] [address] Dr. Charlotte Argueta IG % 1.9 % Critically high 0.0-0.[address] [facility] Comment on above: Performed By: #### C MP #### [facility] [address] [place] [address] Dr. Charlotte Argueta LYMPH # 0.3 103/ul Critically low 1.2-3.8 [facility] Comment on above: Performed By: #### C MP #### [facility] [address] [place] [address] Dr. Charlotte Argueta Lymphocytes/100 WBC (Bld) 5.0 % Critically low 20.5-60.0 [facility] Comment on above: Performed By: #### C MP #### [facility] [address] [place] [address] Dr. Charlotte Argueta MANUAL DIFF REQ NO Normal [facility] Comment on above: Performed By: #### C MP #### [facility] [address] [place] [address] Dr. Charlotte Argueta MCH (RBC) [Entitic mass] 29.3 pg Normal 26.7-34.0 [facility] Comment on above: Performed By: #### C MP #### [facility] [address] [address] [address] Charlotte Argueta MCHC (RBC) [Mass/Vol] 35.6 g/dL Critically high 29.9-35.2 [facility] Comment on above: Performed By: #### C MP #### [facility] [address] [place] [address] Dr. Charlotte Argueta MCV (RBC) [Entitic vol] 82.3 fL Normal 81.0-99.0 [facility] Comment on above: Performed By: #### C MP #### [facility] [address] [place] [address] Dr. Charlotte Argueta MONO # 0.6 103/ul Normal 0.3-0.8 [facility] Comment on above: Performed By: #### C MP #### [facility] [address] [place] [address] Dr. Charlotte Argueta Monocytes/100 WBC (Bld) 9.4 % Normal 1.7-12.0 [facility] Comment on above: Performed By: #### C MP #### [facility] [address] [place] [address] Dr. Charlotte Argueta NEUT # 5.7 103/ul Normal 1.4-6.5 [facility] Comment on above: Performed By: #### C MP #### [facility] [address] [place] [address] Dr. Charlotte Argueta Neutrophils/100 WBC (Bld) 83.6 % Critically high 43.0-75.0 [facility] Comment on above: Performed By: #### C MP #### [facility] [address] [place] [address] Dr. Charlotte Argueta Platelet mean volume (Bld) [Entitic vol] 9.7 fL Normal 9.5-13.5 [facility] Comment on above: Performed By: #### C MP #### [facility] [address] [place] [address] Dr. Charlotte Argueta PLT 410 103/ul Normal 150-450 [facility] Comment on above: Performed By: #### C MP #### [facility] [address] [address] [address] Charlotte Argueta RBC 3.17 106/ul Critically low 4.20-5.[address] [facility] Comment on above: Performed By: #### C MP #### [facility] [address] [address] [address] Charlotte Argueta WBC 6.8 103/ul Normal 4.0-11.0 [facility] Comment on above: Performed By: #### C MP #### [facility] [address] [place] [address] Dr. Charlotte Argueta PROF 14(COMP METB)on 023 Albumin [Mass/Vol] 2.9 g/dL Critically low 3.4-5.0 [facility] Comment on above: Performed By: #### T SH, FT3 #### [facility] [address] [place] [address] Dr. Charlotte Argueta Albumin/Globulin [Mass ratio] 0.8 {ratio} Normal [facility] Comment on above: Performed By: #### T SH, FT3 #### [facility] [address] [place] [address] Dr. Charlotte Argueta ALP [Catalytic activity/Vol] 79 U/L Normal 46-116 [facility] Comment on above: Performed By: #### T SH, FT3 #### [facility] [address] [place] [address] Dr. Charlotte Argueta ALT [Catalytic activity/Vol] 13 U/L Critically low 14-59 [facility] Comment on above: Performed By: #### T SH, FT3 #### [facility] [address] [place] [address] Dr. Charlotte Argueta Anion gap [Moles/Vol] 12.2 mmol/L Normal [facility] Comment on above: Performed By: #### T SH, FT3 #### [facility] [address] [place], [place] [id number] Dr. Charlotte Argueta AST [Catalytic activity/Vol] 13 U/L Critically low 15-37 [facility] Comment on above: Performed By: #### T SH, FT3 #### [facility] [address] [place] [address] Dr. Charlotte Argueta Bilirubin [Mass/Vol] 0.2 mg/dL Normal 0.2-1.0 [facility] Comment on above: Performed By: #### T SH, FT3 #### [facility] [address] [place] [address] Dr. Charlotte Argueta Calcium [Mass/Vol] 8.5 mg/dL Normal 8.5-10.1 [facility] Comment on above: Performed By: #### T SH, FT3 #### [facility] [address] [place] [address] Dr. Charlotte Argueta Chloride [Moles/Vol] 102 mmol/L Normal 98-107 [facility] Comment on above: Performed By: #### T SH, FT3 #### [facility] [address] [place] [address] Dr. Charlotte Argueta CO2 [Moles/Vol] 26.4 mmol/L Normal 21.0-32.0 [facility] Comment on above: Performed By: #### T SH, FT3 #### [facility] [address] [place] [address] Dr. Charlotte Argueta Creatinine [Mass/Vol] 1.25 mg/dL Critically high 0.55-1.02 [facility] Comment on above: Performed By: #### T SH, FT3 #### [facility] [address] [place] [address] Dr. Charlotte Argueta EGFR-AF BAHAMIAN 50 mL/min/1.73m2 Critically low >=60 [facility] Comment on above: Performed By: #### T SH, FT3 #### [facility] [address] [place] [address] Dr. Charlotte Argueta EGFR-NON AF BAHAMIAN 41 mL/min/1.73m2 Critically low >=60 [facility] Comment on above: Performed By: #### T SH, FT3 #### [facility] [address] [place] [address] Dr. Charlotte Argueta Globulin (S) [Mass/Vol] 3.5 g/dL Normal [facility] Comment on above: Performed By: #### T MARY, FT3 #### [facility] [address] [place] [address] Dr. Charlotte Argueta Glucose [Mass/Vol] 217 mg/dL Critically high 74-106 [facility] Comment on above: Performed By: #### T MARY, FT3 #### [facility] [address] [place] [address] Dr. Charlotte Argueta Potassium [Moles/Vol] 3.6 mmol/L Normal 3.5-5.1 [facility] Comment on above: Performed By: #### T MARY, FT3 #### [facility] [address] [place] [address] Dr. Charlotte Argueta Protein [Mass/Vol] 6.4 g/dL Normal 6.4-8.2 [facility] Comment on above: Performed By: #### T MARY, FT3 #### [facility] [address] [place] [address] Dr. Charlotte Argueta Sodium [Moles/Vol] 137 mmol/L Normal 136-145 [facility] Comment on above: Performed By: #### T MARY, FT3 #### [facility] [address] [place] [address] Dr. Charlotte Argueta Urea nitrogen [Mass/Vol] 21.0 mg/dL Critically high 7.0-18.0 [facility] Comment on above: Performed By: #### T MARY, FT3 #### [facility] [address] [place] [address] Dr. Charlotte Argueta Urea nitrogen/Creatinine [Mass ratio] 16.8 mg/mg Normal [facility] Comment on above: Performed By: #### T MARY, FT3 #### [facility] [address] [place] [address] Dr. Charlotte Argueta CBC AUTO DIFFon 10-05-2022 BASO # 0.0 103/ul Normal 0.0-0.1 [facility] Comment on above: Performed By: #### C MREP #### [facility] [address] [address] [address] Charlotte Argueta Basophils/100 WBC (Bld) 0.2 % Normal 0.2-2.0 [facility] Comment on above: Performed By: #### C MREP #### [facility] [address] [address] [address] Charlotte Argueta EO # 0.0 103/ul Normal 0.0-0.7 [facility] Comment on above: Performed By: #### C MREP #### [facility] [address] [place] [address] Dr. Charlotte Argueta Eosinophils/100 WBC (Bld) 0.0 % Critically low 0.9-7.0 [facility] Comment on above: Performed By: #### C MREP #### [facility] [address] [place] [address] Dr. Charlotte Argueta Erythrocyte distribution width (RBC) [Ratio] 16.6 % Critically high 11.0-15.0 [facility] Comment on above: Performed By: #### C MREP #### [facility] [address] [place] [address] Dr. Charlotte Argueta Hematocrit (Bld) [Volume fraction] 30.6 % Critically low 36.0-48.0 [facility] Comment on above: Performed By: #### C MREP #### [facility] [address] [place] [address] Dr. Charlotte Argueta Hemoglobin (Bld) [Mass/Vol] 9.5 g/dL Critically low 12.0-16.0 [facility] Comment on above: Performed By: #### C MREP #### [facility] [address] [place] [address] Dr. Charlotte Argueta IG # 0.04 10e3/ul Critically high 0.00-0.03 [facility] Comment on above: Performed By: #### C MREP #### [facility] [address] [place] [address] Dr. Charlotte Argueta IG % 0.8 % Critically high 0.0-0.[address] [facility] Comment on above: Performed By: #### C MREP #### [facility] [address] [address] [address] Charlotte Argueta LYMPH # 0.4 103/ul Critically low 1.2-3.8 [facility] Comment on above: Performed By: #### C MREP #### [facility] [address] [address] [address] Charlotte Argueta Lymphocytes/100 WBC (Bld) 7.6 % Critically low 20.5-60.0 [facility] Comment on above: Performed By: #### C MREP #### [facility] [address] [address] [address] Charlotte Argueta MANUAL DIFF REQ NO Normal [facility] Comment on above: Performed By: #### C MREP #### [facility] [address] [address] [address] Charlotte Argueta MCH (RBC) [Entitic mass] 29.7 pg Normal 26.7-34.0 [facility] Comment on above: Performed By: #### C MREP #### [facility] [address] [address] [address] Charlotte Argueta MCHC (RBC) [Mass/Vol] 31.0 g/dL Normal 29.9-35.2 [facility] Comment on above: Performed By: #### C MREP #### [facility] [address] [address] [address] Charlotte Argueta MCV (RBC) [Entitic vol] 95.6 fL Normal 81.0-99.0 [facility] Comment on above: Performed By: #### C MREP #### [facility] [address] [address] [address] Charlotte Argueta MONO # 0.2 103/ul Critically low 0.3-0.8 [facility] Comment on above: Performed By: #### C MREP #### [facility] [address] [address] [address] Charlotte Argueta Monocytes/100 WBC (Bld) 3.5 % Normal 1.7-12.0 [facility] Comment on above: Performed By: #### C MREP #### [facility] [address] [address] [address] Charlotte Argueta NEUT # 4.5 103/ul Normal 1.4-6.5 [facility] Comment on above: Performed By: #### C MREP #### [facility] [address] [address] [address] Charlotte Argueta Neutrophils/100 WBC (Bld) 87.9 % Critically high 43.0-75.0 [facility] Comment on above: Performed By: #### C MREP #### [facility] [address] [address] [address] Charlotte Argueta Platelet mean volume (Bld) [Entitic vol] 11.0 fL Normal 9.5-13.5 [facility] Comment on above: Performed By: #### C MREP #### [facility] [address] [address] [address] Charlotte Argueta PLT 441 103/ul Normal 150-450 [facility] Comment on above: Performed By: #### C MREP #### [facility] [address] [address] [address] Charlotte Argueta RBC 3.20 106/ul Critically low 4.20-5.[address] [facility] Comment on above: Performed By: #### C MREP #### [facility] [address] [address] [address] Charlotte Argueta WBC 5.2 103/ul Normal 4.0-11.0 [facility] Comment on above: Performed By: #### C MREP #### [facility] [address] [address] [address] Charlotte Argueta CULTURE URINEon 10-05-2022 CULTURE URINE Culture Observations : NO GROWTH. Normal [facility] Comment on above: Performed By: #### T SH, FT3 #### [facility] [address] [address] [address] Charlotte Argueta PROF 14(COMP METB)on 023 Albumin [Mass/Vol] 2.8 g/dL Critically low 3.4-5.0 [facility] Comment on above: Performed By: #### C MP #### [facility] [address] [address] [address] Charlotte Argueta Albumin/Globulin [Mass ratio] 0.8 {ratio} Normal [facility] Comment on above: Performed By: #### C MP #### [facility] [address] [address] [address] Charlotte Argueta ALP [Catalytic activity/Vol] 92 U/L Normal 46-116 [facility] Comment on above: Performed By: #### C MP #### [facility] [address] [address] [address] Charlotte Argueta ALT [Catalytic activity/Vol] 14 U/L Normal 14-59 [facility] Comment on above: Performed By: #### C MP #### [facility] [address] [place] [address] Dr. Charlotte Argueta Anion gap [Moles/Vol] 11.0 mmol/L Normal [facility] Comment on above: Performed By: #### C MP #### [facility] [address] [place] [address] Dr. Charlotte Argueta AST [Catalytic activity/Vol] 14 U/L Critically low 15-37 [facility] Comment on above: Performed By: #### C MP #### [facility] [address] [place] [address] Dr. Charlotte Argueta Bilirubin [Mass/Vol] 0.2 mg/dL Normal 0.2-1.0 [facility] Comment on above: Performed By: #### C MP #### [facility] [address] [place] [address] Dr. Charlotte Argueta Calcium [Mass/Vol] 8.7 mg/dL Normal 8.5-10.1 [facility] Comment on above: Performed By: #### C MP #### [facility] [address] [address] [address] Charlotte Argueta Chloride [Moles/Vol] 102 mmol/L Normal 98-107 [facility] Comment on above: Performed By: #### C MP #### [facility] [address] [address] [address] Charlotte Argueta CO2 [Moles/Vol] 28.0 mmol/L Normal 21.0-32.0 [facility] Comment on above: Performed By: #### C MP #### [facility] [address] [address] [address] Charlotte Argueta Creatinine [Mass/Vol] 1.09 mg/dL Critically high 0.55-1.02 [facility] Comment on above: Performed By: #### C MP #### [facility] [address] [address] [address] Charlotte Argueta EGFR-AF BAHAMIAN 59 mL/min/1.73m2 Critically low >=60 [facility] Comment on above: Performed By: #### C MP #### [facility] [address] [address] [address] Charlotte Argueta EGFR-NON AF BAHAMIAN 49 mL/min/1.73m2 Critically low >=60 [facility] Comment on above: Performed By: #### C MP #### [facility] [address] [address] [address] Charlotte Argueta Globulin (S) [Mass/Vol] 3.7 g/dL Normal [facility] Comment on above: Performed By: #### C MP #### [facility] [address] [address] [address] Charlotte Argueta Glucose [Mass/Vol] 177 mg/dL Critically high 74-106 [facility] Comment on above: Performed By: #### C MP #### [facility] [address] [address] [address] Charlotte Argueta Potassium [Moles/Vol] 4.0 mmol/L Normal 3.5-5.1 [facility] Comment on above: Performed By: #### C MP #### [facility] [address] [address] [address] Charlotte Argueta Protein [Mass/Vol] 6.5 g/dL Normal 6.4-8.2 [facility] Comment on above: Performed By: #### C MP #### [facility] [address] [address] [address] Charlotte Argueta Sodium [Moles/Vol] 137 mmol/L Normal 136-145 [facility] Comment on above: Performed By: #### C MP #### [facility] [address] [place] [address] Dr. Charlotte Argueta Urea nitrogen [Mass/Vol] 20.0 mg/dL Critically high 7.0-18.0 [facility] Comment on above: Performed By: #### C MP #### [facility] [address] [place] [address] Dr. Charlotte Argueta Urea nitrogen/Creatinine [Mass ratio] 18.3 mg/mg Normal [facility] Comment on above: Performed By: #### C MP #### [facility] [address] [place] [address] Dr. 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 Charlotte Argueta Clarity (U) CLEAR Normal CLEAR [facility] Comment on above: Performed By: #### C MREP #### [facility] [address] [place] [address] Dr. Charlotte Argueta Color (U) LT. YELLOW Normal YELLOW [facility] Comment on above: Performed By: #### C MREP #### [facility] [address] [place] [address] Dr. Charlotte Argueta Glucose Ql (U) Negative Normal NEGATIVE [facility] Comment on above: Performed By: #### C MREP #### [facility] [address] [place] [address] Dr. Charlotte Argueta Hemoglobin Ql (U) Negative Normal NEGATIVE [facility] Comment on above: Performed By: #### C MREP #### [facility] [address] [place] [address] Dr. Charlotte Argueta Ketones Ql (U) Negative Normal NEGATIVE [facility] Comment on above: Performed By: #### C MREP #### [facility] [address] [address] [address] Charlotte Argueta LEUKOCYTES SMALL Abnormal NEGATIVE [facility] Comment on above: Performed By: #### C MREP #### [facility] [address] [address] [address] Charlotte Argueta Nitrite Ql (U) Negative Normal NEGATIVE [facility] Comment on above: Performed By: #### C MREP #### [facility] [address] [place] [address] Dr. Charlotte Argueta pH (U) 6.0 [pH] Normal 5-9 [facility] Comment on above: Performed By: #### C MREP #### [facility] [address] [place] [address] Dr. Charlotte Argueta SPEC GRAVITY 1.015 Normal 1.005-<=1.025 [facility] Comment on above: Performed By: #### C MREP #### [facility] [address] [place] [address] Dr. Charlotte Argueta UA PROTEIN Negative Normal NEGATIVE/ TRACE [facility] Comment on above: Performed By: #### C MREP #### [facility] [address] [place] [address] Dr. Charlotte Argueta UR MICRO IND INDICATED Normal [facility] Comment on above: Performed By: #### C MREP #### [facility] [address] [place] [address] Dr. Charlotte Argueta Urobilinogen Qn (U) 0.2 {Kathia'U}/dL Normal 0.2 - 1. 0 [facility] Comment on above: Performed By: #### C MREP #### [facility] [address] [place] [address] Dr. Charlotte Argueta URINE MICROSCOPIC ONLYon BACTERIA NONE SEEN Normal NONE SEEN [facility] Comment on above: Performed By: #### C MREP #### [facility] [address] [place] [address] Dr. Charlotte Argueta Bacteria identified Cx Nom (U) INDICATED Normal [facility] Comment on above: Performed By: #### C MREP #### [facility] [address] [place] [address] Dr. Charlotte Argueta CAST NONE SEEN Normal NONE SEEN [facility] Comment on above: Performed By: #### C MREP #### [facility] [address] [place] [address] Dr. Charlotte Argueta Crystals LM Nom (Urine sed) NONE SEEN Normal NONE SEEN [facility] Comment on above: Performed By: #### C MREP #### [facility] [address] [place] [address] Dr. Charlotte Argueta Epithelial cells LM Ql (Urine sed) RARE Normal NONE SEEN /RARE [facility] Comment on above: Performed By: #### C MREP #### [facility] [address] [place] [address] Dr. Charlotte Argueta MUCOUS NONE SEEN Normal NONE SEEN [facility] Comment on above: Performed By: #### C MREP #### [facility] [address] [place] [address] Dr. Charlotte Argueta RBC 0-2 Normal 0-2 [facility] Comment on above: Performed By: #### C MREP #### [facility] [address] [place] [address] Dr. Charlotte Argueta WBC 2-5 Abnormal NONE SEEN [facility] Comment on above: Performed By: #### C MREP #### [facility] [address] [place] [address] Dr. Charlotte Argueta BNPon 10-04-2022 Natriuretic peptide B (Bld) [Mass/Vol] 4509.0 pg/mL Critically high <=1,800.0 [facility] Comment on above: Performed By: #### B LDCX1 #### [facility] [address] [place] [address] Dr. Charlotte Argueta CBC AUTO DIFFon 10-04-2022 BASO # 0.0 103/ul Normal 0.0-0.1 [facility] Comment on above: Performed By: #### T SH, FT3 #### [facility] [address] [place] [address] Dr. Charlotte Argueta Basophils/100 WBC (Bld) 0.5 % Normal 0.2-2.0 [facility] Comment on above: Performed By: #### T SH, FT3 #### [facility] [address] [place] [address] Dr. Charlotte Argueta EO # 0.6 103/ul Normal 0.0-0.7 [facility] Comment on above: Performed By: #### T SH, FT3 #### [facility] [address] [place] [address] Dr. Charlotte Argueta Eosinophils/100 WBC (Bld) 6.9 % Normal 0.9-7.0 [facility] Comment on above: Performed By: #### T SH, FT3 #### [facility] [address] [place] [address] Dr. Charlotte Argueta Erythrocyte distribution width (RBC) [Ratio] 16.5 % Critically high 11.0-15.0 [facility] Comment on above: Performed By: #### T SH, FT3 #### [facility] [address] [place] [address] Dr. Charlotte Argueta Hematocrit (Bld) [Volume fraction] 30.9 % Critically low 36.0-48.0 [facility] Comment on above: Performed By: #### T SH, FT3 #### [facility] [address] [place] [address] Dr. Charlotte Argueta Hemoglobin (Bld) [Mass/Vol] 9.8 g/dL Critically low 12.0-16.0 [facility] Comment on above: Performed By: #### T SH, FT3 #### [facility] [address] [place] [address] Dr. Charlotte Argueta IG # 0.05 10e3/ul Critically high 0.00-0.03 [facility] Comment on above: Performed By: #### T SH, FT3 #### [facility] [address] [place] [address] Dr. Charlotte Argueta IG % 0.6 % Critically high 0.0-0.[address] [facility] Comment on above: Performed By: #### T SH, FT3 #### [facility] [address] [place] [address] Dr. Charlotte Argueta LYMPH # 1.9 103/ul Normal 1.2-3.8 [facility] Comment on above: Performed By: #### T SH, FT3 #### [facility] [address] [place] [address] Dr. Charlotte Argueta Lymphocytes/100 WBC (Bld) 23.5 % Normal 20.5-60.0 [facility] Comment on above: Performed By: #### T SH, FT3 #### [facility] [address] [place] [address] Dr. Charlotte Argueta MANUAL DIFF REQ NO Normal [facility] Comment on above: Performed By: #### T SH, FT3 #### [facility] [address] [place] [address] Dr. Charlotte Argueta MCH (RBC) [Entitic mass] 30.2 pg Normal 26.7-34.0 [facility] Comment on above: Performed By: #### T SH, FT3 #### [facility] [address] [place] [address] Dr. Charlotte Argueta MCHC (RBC) [Mass/Vol] 31.7 g/dL Normal 29.9-35.2 [facility] Comment on above: Performed By: #### T SH, FT3 #### [facility] [address] [place] [address] Dr. Charlotte Argueta MCV (RBC) [Entitic vol] 95.4 fL Normal 81.0-99.0 [facility] Comment on above: Performed By: #### T SH, FT3 #### [facility] [address] [place] [address] Dr. Charlotte Argueta MONO # 1.0 103/ul Critically high 0.3-0.[address] [facility] Comment on above: Performed By: #### T SH, FT3 #### [facility] [address] [place] [address] Dr. Charlotte Argueta Monocytes/100 WBC (Bld) 12.4 % Critically high 1.7-12.0 [facility] Comment on above: Performed By: #### T SH, FT3 #### [facility] [address] [place] [address] Dr. Charlotte Argueta NEUT # 4.5 103/ul Normal 1.4-6.5 [facility] Comment on above: Performed By: #### T SH, FT3 #### [facility] [address] [place] [address] Dr. Charlotte Argueta Neutrophils/100 WBC (Bld) 56.1 % Normal 43.0-75.0 [facility] Comment on above: Performed By: #### T MARY, FT3 #### [facility] [address] [place] [address] Dr. Charlotte Argueta Platelet mean volume (Bld) [Entitic vol] 10.9 fL Normal 9.5-13.5 [facility] Comment on above: Performed By: #### Andi HERNANDEZ, FT3 #### [facility] [address] [place] [address] Dr. Charlotte Argueta PLT 449 103/ul Normal 150-450 [facility] Comment on above: Performed By: #### T MARY, FT3 #### [facility] [address] [place] [address] Dr. Charlotte Argueta RBC 3.24 106/ul Critically low 4.20-5.[address] [facility] Comment on above: Performed By: #### T MARY, FT3 #### [facility] [address] [place] [address] Dr. Charlotte Argueta WBC 8.1 103/ul Normal 4.0-11.0 [facility] Comment on above: Performed By: #### T MARY, FT3 #### [facility] [address] [place] [address] Dr. Charlotte Argueta CTA CHEST WO W CONon 023 CTA CHEST WO W CON EXAMINATION: CTA SYMONE ST WO W CON HISTORY: Shortness of breath or wheezing COMPARISON: 01/31/2021 TECHNIQUE: CT angiography of the pulmonary arteries following the administration of intravenous contrast. Coronal and sagittal MIP (maximum intensity projection) images were performed. 3-D image processing was performed. Dose reduction techniques were achieved by using automated exposure control and/or adjustment of mA and/or kV according to patient size and/or use of iterative reconstruction technique. FINDINGS: The study is technically limited for the diagnosis of pulmonary embolism within the segmental and subsegmental pulmonary arteries due to suboptimal contrast bolus. TUBES AND IMPLANTS: None. CHEST WALL AND LOWER NECK: Unremarkable. BONES: No suspicious lesions. Multilevel degenerative changes of the spine. UPPER ABDOMEN: More prominent pneumobilia is noted. Postsurgical changes related to gastric bypass surgery. MEDIASTINUM AND CAIO: Calcified mediastinal lymph nodes are seen. AORTA: No aneurysm PULMONARY ARTERIES: No embolism within the limitations of the study HEART: Moderate cardiomegaly CORONARY ARTERIES: Mild coronary artery calcifications. LUNG AND AIRWAYS: Unremarkable. PLEURA: Unremarkable. IMPRESSION: 1. No evidence for pulmonary embolism with limited evaluation of the segmental and subsegmental pulmonary arteries due to suboptimal contrast bolus. 2. No evidence of acute intrathoracic process. 3. Moderate cardiomegaly. 4. Pneumobilia. Electronically authenticated by: PIERCE MURGUIA Date: 2022-10-04 21:41 Normal [facility] CULTURE BLOODon 10-04-2022 Microscopic examination of blood, culture Culture Observations: NO GROWTH AT 5 DAYS. Normal [facility] Comment on above: Performed By: #### B LDCX2 #### [facility] [address] [place] [address] Dr. Charlotte Argueta Microscopic examination of blood, culture Culture Observations: NO GROWTH AT 5 DAYS. Normal [facility] Comment on above: Performed By: #### B LDCX1 #### [facility] [address] [place] [address] Dr. Charlotte Argueta D-DIMERon 10-04-2022 D-DIMER 1.22 mg/L FEU Critically high <=0.59 [facility] Comment on above: Performed By: #### B [id number] #### [facility] [address] [place] [address] Dr. Charlotte Argueta D-DIMER COMMENTS SEE BELOW Normal [facility] Comment on above: Result Comment: Incr eases in D-Dimer concentration observed with thromboembolic events can be variable due to localization, size, and age of the thrombus. Therefore, a thromboembolic event cannot be diagnosed with certainty on the basis of the reference range. D-Dimers may also be elevated for a variety of disorders including: advanced age, , coronary disease, cancer, liver disease, infection, inflammation, hematoma, DIC, trauma, post-surgery, diabetes, thrombolytic or anticoagulant therapy, stress, and generalized hospitalization. Performed By: #### B [id number] #### [facility] [address] [place] [address] Dr. Charlotte Argueta LACTATE/LACTIC ACIDon 2022 Lactate [Moles/Vol] 3.1 mmol/L Critically high 0.4-1.9 [facility] Comment on above: Performed By: #### C MP #### [facility] [address] [place] [address] Dr. Charlotte Argueta Lactate [Moles/Vol] 0.9 mmol/L Normal 0.4-1.9 [facility] Comment on above: Performed By: #### T SH, FT3 #### [facility] [address] [place] [address] Dr. Charlotte Argueta PROF 14(COMP METB)on 023 Albumin [Mass/Vol] 2.7 g/dL Critically low 3.4-5.0 [facility] Comment on above: Performed By: #### B [id number] #### [facility] [address] [place] [address] Dr. Charlotte Argueta Albumin/Globulin [Mass ratio] 0.8 {ratio} Normal [facility] Comment on above: Performed By: #### B [id number] #### [facility] [address] [place] [address] Dr. Charlotte Argueta ALP [Catalytic activity/Vol] 86 U/L Normal 46-116 [facility] Comment on above: Performed By: #### B [id number] #### [facility] [address] [place] [address] Dr. Charlotte Argueta ALT [Catalytic activity/Vol] 13 U/L Critically low 14-59 [facility] Comment on above: Performed By: #### B LDCX1 #### [facility] [address] [address] [address] Charlotte Argueta Anion gap [Moles/Vol] 13.2 mmol/L Normal [facility] Comment on above: Performed By: #### B [id number] #### [facility] [address] [address] [address] Charlotte Argueta AST [Catalytic activity/Vol] 14 U/L Critically low 15-37 [facility] Comment on above: Performed By: #### B LDCX1 #### [facility] [address] [place] [address] Dr. Charlotte Argueta Bilirubin [Mass/Vol] 0.3 mg/dL Normal 0.2-1.0 [facility] Comment on above: Performed By: #### B LDCX1 #### [facility] [address] [place] [address] Dr. Charlotte Argueta Calcium [Mass/Vol] 8.5 mg/dL Normal 8.5-10.1 [facility] Comment on above: Performed By: #### B LDCX1 #### [facility] [address] [address] [address] Charlotte Argueta Chloride [Moles/Vol] 105 mmol/L Normal 98-107 [facility] Comment on above: Performed By: #### B LDCX1 #### [facility] [address] [place] [address] Dr. Charlotte Argueta CO2 [Moles/Vol] 27.5 mmol/L Normal 21.0-32.0 [facility] Comment on above: Performed By: #### B LDCX1 #### [facility] [address] [place] [address] Dr. Charlotte Argueta Creatinine [Mass/Vol] 1.11 mg/dL Critically high 0.55-1.02 [facility] Comment on above: Performed By: #### B LDCX1 #### [facility] [address] [place] [address] Dr. Charlotte Argueta EGFR-AF BAHAMIAN 58 mL/min/1.73m2 Critically low >=60 [facility] Comment on above: Performed By: #### B LDCX1 #### [facility] [address] [address] [address] Charlotte Argueta EGFR-NON AF BAHAMIAN 48 mL/min/1.73m2 Critically low >=60 [facility] Comment on above: Performed By: #### B LDCX1 #### [facility] [address] [address] [address] Charlotte Argueta Globulin (S) [Mass/Vol] 3.6 g/dL Normal [facility] Comment on above: Performed By: #### B LDCX1 #### [facility] [address] [address] [address] Charlotte Argueta Glucose [Mass/Vol] 85 mg/dL Normal 74-106 [facility] Comment on above: Performed By: #### B LDCX1 #### [facility] [address] [address] [address] Charlotte Argueta Potassium [Moles/Vol] 3.7 mmol/L Normal 3.5-5.1 [facility] Comment on above: Performed By: #### B LDCX1 #### [facility] [address] [address] [address] Charlotte Argueta Protein [Mass/Vol] 6.3 g/dL Critically low 6.4-8.2 [facility] Comment on above: Performed By: #### B LDCX1 #### [facility] [address] [address] [address] Charlotte Argueta Sodium [Moles/Vol] 142 mmol/L Normal 136-145 [facility] Comment on above: Performed By: #### B LDCX1 #### [facility] [address] [address] [address] Charlotte Argueta Urea nitrogen [Mass/Vol] 25.0 mg/dL Critically high 7.0-18.0 [facility] Comment on above: Performed By: #### B LDCX1 #### [facility] [address] [address] [address] Charlotte Argueta Urea nitrogen/Creatinine [Mass ratio] 22.5 mg/mg Normal [facility] Comment on above: Performed By: #### B LDCX1 #### [facility] [address] [place] [address] Dr. Charlotte Argueta RESPIRATORY PANEL PLUSon Adenovirus Not detected Normal NOT DETECTED [facility] Comment on above: Performed By: #### C MP #### [facility] [address] [place] [address] Dr. Charlotte Mullen. Parapertusis Not detected Normal NOT DETECTED [facility] Comment on above: Performed By: #### C MP #### [facility] [address] [place] [address] Dr. Charlotte Mullen. Pertussis Not detected Normal NOT DETECTED [facility] Comment on above: Performed By: #### C MP #### [facility] [address] [place] [address] Dr. Charlotte Argueta Chlamydia Pneumoniae Not detected Normal NOT DETECTED [facility] Comment on above: Performed By: #### C MP #### [facility] [address] [place] [address] Dr. Charlotte Argueta Coronavirus 229E Not detected Normal NOT DETECTED [facility] Comment on above: Performed By: #### C MP #### [facility] [address] [place] [address] Dr. Charlotte Argueta Coronavirus HKU1 Not detected Normal NOT DETECTED [facility] Comment on above: Performed By: #### C MP #### [facility] [address] [place] [address] Dr. Charlotte Argueta Coronavirus NL63 Not detected Normal NOT DETECTED [facility] Comment on above: Performed By: #### C MP #### [facility] [address] [place] [address] Dr. Charlotte Argueta Coronavirus OC43 Not detected Normal NOT DETECTED [facility] Comment on above: Performed By: #### C MP #### [facility] [address] [place] [address] Dr. Charlotte Argueta Influenza A H1 2009 Not detected Normal NOT DETECTED [facility] Comment on above: Performed By: #### C MP #### [facility] [address] [place] [address] Dr. Charlotte Argueta Influenza A H3 Not detected Normal NOT DETECTED [facility] Comment on above: Performed By: #### C MP #### [facility] [address] [place] [address] Dr. Charlotte Argueta Influenza B Not detected Normal NOT DETECTED [facility] Comment on above: Performed By: #### C MP #### [facility] [address] [address] [address] Charlotte Argueta Metapneumovirus Not detected Normal NOT DETECTED [facility] Comment on above: Performed By: #### C MP #### [facility] [address] [place] [address] Dr. Charlotte Argueta Mycoplas. Pneumoniae Not detected Normal NOT DETECTED [facility] Comment on above: Performed By: #### C MP #### [facility] [address] [place] [address] Dr. Charlotte Argueta Parainfluenza 1 Not detected Normal NOT DETECTED [facility] Comment on above: Performed By: #### C MP #### [facility] [address] [place] [address] Dr. Charlotte Argueta Parainfluenza 2 Not detected Normal NOT DETECTED [facility] Comment on above: Performed By: #### C MP #### [facility] [address] [place] [address] Dr. Charlotte Argueta Parainfluenza 3 Not detected Normal NOT DETECTED [facility] Comment on above: Performed By: #### C MP #### [facility] [address] [place] [address] Dr. Charlotte Argueta Parainfluenza 4 Not detected Normal NOT DETECTED [facility] Comment on above: Performed By: #### C MP #### [facility] [address] [place] [address] Dr. Charlotte Argueta Rhino/Enterovirus Not detected Normal NOT DETECTED [facility] Comment on above: Performed By: #### C MP #### [facility] [address] [place] [address] Dr. Charlotte Argueta RP2 Header 1 RESPIRATORY PANEL: VIRUSES Normal [facility] Comment on above: Performed By: #### C MP #### [facility] [address] [place] [address] Dr. Charlotte Argueta RP2 Header 2 RESPIRATORY PANEL: BACTERIA Normal [facility] Comment on above: Performed By: #### C MP #### [facility] [address] [place] [address] Dr. Charlotte Argueta RSV Not detected Normal NOT DETECTED [facility] Comment on above: Performed By: #### C MP #### [facility] [address] [address] [address] Charlotte Argueta SARS-CoV-2 (COVID-19) RNA DANNY+probe Ql (Unsp spec) Not detected Normal NOT DETECTED [facility] Comment on above: Performed By: #### C MP #### [facility] [address] [place] [address] Dr. Charlotte Argueta TROPONIN, HIGH SENSITIVITYon 10-04-2022 HSTROP 11.5 pg/mL Normal 4.0-51.3 [facility] Comment on above: Result Comment: CUT- OFF POINTS HAVE BEEN ESTABLISHED BASED ON THE FOURTH UNIVERSAL DEFINITIONS OF MYOCARDIAL INFARCTION. THE UPPER REFERENCE LIMIT (URL) OF TROPONIN, DEFINED THE 99TH PERCENTILE OF cTnI DISTRIBUTION IN A REFERENCE POPULATION, HAS BEEN CONFIRMED THE DECISION THRESHOLD FOR [place] DIAGNOSIS. Performed By: #### B LDCX1 #### [facility] [address] [place] [address] Dr. Charlotte Argueta XR CHEST 1 Von 10-04-2022 XR CHEST 1 V EXAM: XR CHEST 1 V HISTORY: SHORTNESS OF BREATH COMPARISON: Chest radiograph 08/05/2022 TECHNIQUE: AP portable upright view of the chest FINDINGS: Lungs are clear of focal consolidation. Right lung base has improved in aeration since 08/05/2022. No sizable pleural effusion or pneumothorax. Prominent cardiomediastinal silhouette. No pulmonary vascular congestion. No acute osseous or soft tissue abnormalities. IMPRESSION: No acute cardiopulmonary process. Electronically authenticated by: GREGORIO MCFARLAND Date: 2022-10-04 09:10 Normal [facility] CBC AUTO DIFFon 08-07-2022 BASO # 0.0 103/ul Normal 0.0-0.1 [facility] Comment on above: Performed By: #### C MREP #### [facility] [address] [place] [address] Dr. Charlotte Argueta Basophils/100 WBC (Bld) 0.5 % Normal 0.2-2.0 [facility] Comment on above: Performed By: #### C MREP #### [facility] [address] [place] [address] Dr. Charlotte Argueta EO # 0.3 103/ul Normal 0.0-0.7 [facility] Comment on above: Performed By: #### C MREP #### [facility] [address] [place] [address] Dr. Charlotte Argueta Eosinophils/100 WBC (Bld) 8.1 % Critically high 0.9-7.0 [facility] Comment on above: Performed By: #### C MREP #### [facility] [address] [place] [address] Dr. Charlotte Argueta Erythrocyte distribution width (RBC) [Ratio] 14.0 % Normal 11.0-15.0 [facility] Comment on above: Performed By: #### C MREP #### [facility] [address] [place] [address] Dr. Charlotte Argueta Hematocrit (Bld) [Volume fraction] 28.1 % Critically low 36.0-48.0 [facility] Comment on above: Performed By: #### C MREP #### [facility] [address] [place] [address] Dr. Charlotte Argueta Hemoglobin (Bld) [Mass/Vol] 8.9 g/dL Critically low 12.0-16.0 [facility] Comment on above: Performed By: #### C MREP #### [facility] [address] [place] [address] Dr. Charlotte Argueta IG # 0.01 10e3/ul Normal 0.00-0.03 [facility] Comment on above: Performed By: #### C MREP #### [facility] [address] [place] [address] Dr. Charlotte Argueta IG % 0.3 % Normal 0.0-0.5 [facility] Comment on above: Performed By: #### C MREP #### [facility] [address] [place] [address] Dr. Charlotte Argueta LYMPH # 1.2 103/ul Normal 1.2-3.8 [facility] Comment on above: Performed By: #### C MREP #### [facility] [address] [place] [address] Dr. Charlotte Argueta Lymphocytes/100 WBC (Bld) 32.3 % Normal 20.5-60.0 [facility] Comment on above: Performed By: #### C MREP #### [facility] [address] [place] [address] Dr. Charlotte Argueta MANUAL DIFF REQ NO Normal [facility] Comment on above: Performed By: #### C MREP #### [facility] [address] [place] [address] Dr. Charlotte Argueta MCH (RBC) [Entitic mass] 28.8 pg Normal 26.7-34.0 [facility] Comment on above: Performed By: #### C MREP #### [facility] [address] [place] [address] Dr. Charlotte Argueta MCHC (RBC) [Mass/Vol] 31.7 g/dL Normal 29.9-35.2 [facility] Comment on above: Performed By: #### C MREP #### [facility] [address] [place] [address] Dr. Charlotte Argueta MCV (RBC) [Entitic vol] 90.9 fL Normal 81.0-99.0 [facility] Comment on above: Performed By: #### C MREP #### [facility] [address] [place] [address] Dr. Charlotte Argueta MONO # 0.7 103/ul Normal 0.3-0.8 [facility] Comment on above: Performed By: #### C MREP #### [facility] [address] [place] [address] Dr. Charlotte Argueta Monocytes/100 WBC (Bld) 17.8 % Critically high 1.7-12.0 [facility] Comment on above: Performed By: #### C MREP #### [facility] [address] [place] [address] Dr. Charlotte Argueta NEUT # 1.5 103/ul Normal 1.4-6.5 [facility] Comment on above: Performed By: #### C MREP #### [facility] [address] [place] [address] Dr. Charlotte Argueta Neutrophils/100 WBC (Bld) 41.0 % Critically low 43.0-75.0 [facility] Comment on above: Performed By: #### C MREP #### [facility] [address] [place] [address] Dr. Charlotte Argueta Platelet mean volume (Bld) [Entitic vol] 10.4 fL Normal 9.5-13.5 [facility] Comment on above: Performed By: #### C MREP #### [facility] [address] [place] [address] Dr. Charlotte Argueta PLT 326 103/ul Normal 150-450 [facility] Comment on above: Performed By: #### C MREP #### [facility] [address] [place] [address] Dr. Charlotte Argueta RBC 3.09 106/ul Critically low 4.20-5.[address] [facility] Comment on above: Performed By: #### C MREP #### [facility] [address] [place] [address] Dr. Charlotte Argueta WBC 3.7 103/ul Critically low 4.0-11.0 [facility] Comment on above: Performed By: #### C MREP #### [facility] [address] [place] [address] Dr. Charlotte Argueta PROF 14(COMP METB)on 022 Albumin [Mass/Vol] 2.6 g/dL Critically low 3.4-5.0 [facility] Comment on above: Performed By: #### C MREP #### [facility] [address] [place] [address] Dr. Charlotte Argueta Albumin/Globulin [Mass ratio] 0.8 {ratio} Normal [facility] Comment on above: Performed By: #### C MREP #### [facility] [address] [place] [address] Dr. Charlotte Argueta ALP [Catalytic activity/Vol] 67 U/L Normal 46-116 [facility] Comment on above: Performed By: #### C MREP #### [facility] [address] [place] [address] Dr. Charlotte Argueta ALT [Catalytic activity/Vol] 15 U/L Normal 14-59 [facility] Comment on above: Performed By: #### C MREP #### [facility] [address] [place] [address] Dr. Charlotte Argueta Anion gap [Moles/Vol] 11.4 mmol/L Normal [facility] Comment on above: Performed By: #### C MREP #### [facility] [address] [place] [address] Dr. Charlotte Argueta AST [Catalytic activity/Vol] 28 U/L Normal 15-37 [facility] Comment on above: Performed By: #### C MREP #### [facility] [address] [place] [address] Dr. Charlotte Argueta Bilirubin [Mass/Vol] 0.1 mg/dL Critically low 0.2-1.0 [facility] Comment on above: Performed By: #### C MREP #### [facility] [address] [place] [address] Dr. Charlotte Argueta Calcium [Mass/Vol] 7.7 mg/dL Critically low 8.5-10.1 [facility] Comment on above: Performed By: #### C MREP #### [facility] [address] [place] [address] Dr. Charlotte Argueta Chloride [Moles/Vol] 99 mmol/L Normal 98-107 [facility] Comment on above: Performed By: #### C MREP #### [facility] [address] [place] [address] Dr. Charlotte Argueta CO2 [Moles/Vol] 29.2 mmol/L Normal 21.0-32.0 [facility] Comment on above: Performed By: #### C MREP #### [facility] [address] [place] [address] Dr. Charlotte Argueta Creatinine [Mass/Vol] 1.46 mg/dL Critically high 0.55-1.02 [facility] Comment on above: Performed By: #### C MREP #### [facility] [address] [address] [address] Charlotte Argueta EGFR-AF BAHAMIAN 42 mL/min/1.73m2 Critically low >=60 [facility] Comment on above: Performed By: #### C MREP #### [facility] [address] [place] [address] Dr. Charlotte Argueta EGFR-NON AF BAHAMIAN 35 mL/min/1.73m2 Critically low >=60 [facility] Comment on above: Performed By: #### C MREP #### [facility] [address] [place] [address] Dr. Charlotte Argueta Globulin (S) [Mass/Vol] 3.4 g/dL Normal [facility] Comment on above: Performed By: #### C MREP #### [facility] [address] [place] [address] Dr. Charlotte Argueta Glucose [Mass/Vol] 110 mg/dL Critically high 74-106 [facility] Comment on above: Performed By: #### C MREP #### [facility] [address] [place] [address] Dr. Charlotte Argueta Potassium [Moles/Vol] 3.6 mmol/L Normal 3.5-5.1 [facility] Comment on above: Performed By: #### C MREP #### [facility] [address] [place] [address] Dr. Charlotte Argueta Protein [Mass/Vol] 6.0 g/dL Critically low 6.4-8.2 [facility] Comment on above: Performed By: #### C MREP #### [facility] [address] [place] [address] Dr. Charlotte Argueta Sodium [Moles/Vol] 136 mmol/L Normal 136-145 [facility] Comment on above: Performed By: #### C MREP #### [facility] [address] [place] [address] Dr. Charlotte Argueta Urea nitrogen [Mass/Vol] 34.0 mg/dL Critically high 7.0-18.0 [facility] Comment on above: Performed By: #### C MREP #### [facility] [address] [place] [address] Dr. Charlotte Argueta Urea nitrogen/Creatinine [Mass ratio] 23.3 mg/mg Normal [facility] Comment on above: Performed By: #### C MREP #### [facility] [address] [place] [address] Dr. Charlotte Argueta CBC AUTO DIFFon 08-06-2022 BASO # 0.0 103/ul Normal 0.0-0.1 [facility] Comment on above: Performed By: #### I NFLUAB #### [facility] [address] [place] [address] Dr. Charlotte Argueta Basophils/100 WBC (Bld) 0.5 % Normal 0.2-2.0 [facility] Comment on above: Performed By: #### I NFLUAB #### [facility] [address] [place] [address] Dr. Charlotte Argueta EO # 0.1 103/ul Normal 0.0-0.7 [facility] Comment on above: Performed By: #### I NFLUAB #### [facility] [address] [place] [address] Dr. Charlotte Argueta Eosinophils/100 WBC (Bld) 1.6 % Normal 0.9-7.0 [facility] Comment on above: Performed By: #### I NFLUAB #### [facility] [address] [place] [address] Dr. Charlotte Argueta Erythrocyte distribution width (RBC) [Ratio] 14.2 % Normal 11.0-15.0 [facility] Comment on above: Performed By: #### I NFLUAB #### [facility] [address] [place] [address] Dr. Charlotte Argueta Hematocrit (Bld) [Volume fraction] 26.3 % Critically low 36.0-48.0 [facility] Comment on above: Performed By: #### I NFLUAB #### [facility] [address] [address] [address] Charlotte Argueta Hemoglobin (Bld) [Mass/Vol] 8.6 g/dL Critically low 12.0-16.0 [facility] Comment on above: Performed By: #### I NFLUAB #### [facility] [address] [address] [address] Charlotte Argueta IG # 0.01 10e3/ul Normal 0.00-0.03 [facility] Comment on above: Performed By: #### I NFLUAB #### [facility] [address] [address] [address] Charlotte Argueta IG % 0.3 % Normal 0.0-0.5 [facility] Comment on above: Performed By: #### I NFLUAB #### [facility] [address] [address] [address] Charlotte Argueta LYMPH # 1.3 103/ul Normal 1.2-3.8 [facility] Comment on above: Performed By: #### I NFLUAB #### [facility] [address] [address] [address] Charlotte Argueta Lymphocytes/100 WBC (Bld) 34.9 % Normal 20.5-60.0 [facility] Comment on above: Performed By: #### I NFLUAB #### [facility] [address] [address] [address] Charlotte Argueta MANUAL DIFF REQ NO Normal [facility] Comment on above: Performed By: #### I NFLUAB #### [facility] [address] [address] [address] Charlotte Argueta MCH (RBC) [Entitic mass] 29.6 pg Normal 26.7-34.0 [facility] Comment on above: Performed By: #### I NFLUAB #### [facility] [address] [address] [address] Charlotte Argueta MCHC (RBC) [Mass/Vol] 32.7 g/dL Normal 29.9-35.2 [facility] Comment on above: Performed By: #### I NFLUAB #### [facility] [address] [place] [address] Dr. Charlotte Argueta MCV (RBC) [Entitic vol] 90.4 fL Normal 81.0-99.0 [facility] Comment on above: Performed By: #### I NFLUAB #### [facility] [address] [place] [address] Dr. Charlotte Argueta MONO # 0.7 103/ul Normal 0.3-0.8 [facility] Comment on above: Performed By: #### I NFLUAB #### [facility] [address] [place] [address] Dr. Charlotte Argueta Monocytes/100 WBC (Bld) 18.6 % Critically high 1.7-12.0 [facility] Comment on above: Performed By: #### I NFLUAB #### [facility] [address] [place] [address] Dr. Charlotte Argueta NEUT # 1.6 103/ul Normal 1.4-6.5 [facility] Comment on above: Performed By: #### I NFLUAB #### [facility] [address] [place] [address] Dr. Charlotte Argueta Neutrophils/100 WBC (Bld) 44.1 % Normal 43.0-75.0 [facility] Comment on above: Performed By: #### I NFLUAB #### [facility] [address] [place] [address] Dr. Charlotte Argueta Platelet mean volume (Bld) [Entitic vol] 10.6 fL Normal 9.5-13.5 [facility] Comment on above: Performed By: #### I NFLUAB #### [facility] [address] [place] [address] Dr. Charlotte Argueta PLT 322 103/ul Normal 150-450 [facility] Comment on above: Performed By: #### I NFLUAB #### [facility] [address] [address] [address] Charlotte Argueta RBC 2.91 106/ul Critically low 4.20-5.[address] [facility] Comment on above: Performed By: #### I NFLUAB #### [facility] [address] [address] [address] Charlotte Argueta WBC 3.7 103/ul Critically low 4.0-11.0 [facility] Comment on above: Performed By: #### I NFLUAB #### [facility] [address] [place] [address] Dr. Charlotte Argueta OCC BLD IMMUNO SCREENon OCCULT BLOOD Negative Normal NEGATIVE [facility] Comment on above: Performed By: #### I NFLUAB #### [facility] [address] [place] [address] Dr. Charlotte Argueta PROF 14(COMP METB)on 022 Albumin [Mass/Vol] 2.5 g/dL Critically low 3.4-5.0 [facility] Comment on above: Performed By: #### B LDCX1 #### [facility] [address] [place] [address] Dr. Charlotte Argueta Albumin/Globulin [Mass ratio] 0.8 {ratio} [facility] Comment on above: Performed By: #### B LDCX1 #### [facility] [address] [place] [address] Dr. Charlotte Argueta ALP [Catalytic activity/Vol] 70 U/L Normal 46-116 [facility] Comment on above: Performed By: #### B LDCX1 #### [facility] [address] [place] [address] Dr. Charlotte Argueta ALT [Catalytic activity/Vol] 10 U/L Critically low 14-59 [facility] Comment on above: Performed By: #### B LDCX1 #### [facility] [address] [place] [address] Dr. Charlotte Argueta Anion gap [Moles/Vol] 8.5 mmol/L Normal [facility] Comment on above: Performed By: #### B LDCX1 #### [facility] [address] [address] [address] Charlotte Argueta AST [Catalytic activity/Vol] 22 U/L Normal 15-37 [facility] Comment on above: Performed By: #### B LDCX1 #### [facility] [address] [address] [address] Charlotte Argueta Bilirubin [Mass/Vol] 0.1 mg/dL Critically low 0.2-1.0 [facility] Comment on above: Performed By: #### B LDCX1 #### [facility] [address] [address] [address] Charlotte Argueta Calcium [Mass/Vol] 7.7 mg/dL Critically low 8.5-10.1 [facility] Comment on above: Performed By: #### B LDCX1 #### [facility] [address] [address] [address] Charlotte Argueta Chloride [Moles/Vol] 97 mmol/L Critically low 98-107 [facility] Comment on above: Performed By: #### B LDCX1 #### [facility] [address] [address] [address] Charlotte Argueta CO2 [Moles/Vol] 31.3 mmol/L Normal 21.0-32.0 [facility] Comment on above: Performed By: #### B LDCX1 #### [facility] [address] [address] [address] Charlotte Argueta Creatinine [Mass/Vol] 1.83 mg/dL Critically high 0.55-1.02 [facility] Comment on above: Performed By: #### B LDCX1 #### [facility] [address] [address] [address] Charlotte Argueta EGFR-AF BAHAMIAN 32 mL/min/1.73m2 Critically low >=60 [facility] Comment on above: Performed By: #### B LDCX1 #### [facility] [address] [address] [address] Charlotte Argueta EGFR-NON AF BAHAMIAN 27 mL/min/1.73m2 Critically low >=60 [facility] Comment on above: Performed By: #### B LDCX1 #### [facility] [address] [place] [address] Dr. Charlotte Argueta Globulin (S) [Mass/Vol] 3.3 g/dL Normal [facility] Comment on above: Performed By: #### B LDCX1 #### [facility] [address] [place] [address] Dr. Charlotte Argueta Glucose [Mass/Vol] 105 mg/dL Normal 74-106 [facility] Comment on above: Performed By: #### B LDCX1 #### [facility] [address] [place] [address] Dr. Charlotte Argueta Potassium [Moles/Vol] 3.8 mmol/L Normal 3.5-5.1 [facility] Comment on above: Performed By: #### B LDCX1 #### [facility] [address] [place] [address] Dr. Charlotte Argueta Protein [Mass/Vol] 5.8 g/dL Critically low 6.4-8.2 [facility] Comment on above: Performed By: #### B LDCX1 #### [facility] [address] [place] [address] Dr. Charlotte Argueta Sodium [Moles/Vol] 133 mmol/L Critically low 136-145 [facility] Comment on above: Performed By: #### B LDCX1 #### [facility] [address] [place] [address] Dr. Charlotte Argueta Urea nitrogen [Mass/Vol] 40.0 mg/dL Critically high 7.0-18.0 [facility] Comment on above: Performed By: #### B LDCX1 #### [facility] [address] [place] [address] Dr. Charlotte Argueta Urea nitrogen/Creatinine [Mass ratio] 21.9 mg/mg Normal [facility] Comment on above: Performed By: #### B LDCX1 #### [facility] [address] [place] [address] Dr. Charlotte Argueta CBC AUTO DIFFon 08-05-2022 BASO # 0.0 103/ul Normal 0.0-0.1 [facility] Comment on above: Performed By: #### T SH, FT3 #### [facility] [address] [place] [address] Dr. Charlotte Argueta Basophils/100 WBC (Bld) 0.3 % Normal 0.2-2.0 [facility] Comment on above: Performed By: #### T SH, FT3 #### [facility] [address] [place] [address] Dr. Charlotte Argueta EO # 0.1 103/ul Normal 0.0-0.7 [facility] Comment on above: Performed By: #### T SH, FT3 #### [facility] [address] [place] [address] Dr. Charlotte Argueta Eosinophils/100 WBC (Bld) 0.7 % Critically low 0.9-7.0 [facility] Comment on above: Performed By: #### T MARY, FT3 #### [facility] [address] [place] [address] Dr. Charlotte Argueta Erythrocyte distribution width (RBC) [Ratio] 14.1 % Normal 11.0-15.0 [facility] Comment on above: Performed By: #### T MARY, FT3 #### [facility] [address] [place] [address] Dr. Charlotte Argueta Hematocrit (Bld) [Volume fraction] 29.1 % Critically low 36.0-48.0 [facility] Comment on above: Performed By: #### T SH, FT3 #### [facility] [address] [place] [address] Dr. Charlotte Argueta Hemoglobin (Bld) [Mass/Vol] 9.4 g/dL Critically low 12.0-16.0 [facility] Comment on above: Performed By: #### T SH, FT3 #### [facility] [address] [place] [address] Dr. Charlotte Argueta IG # 0.04 10e3/ul Critically high 0.00-0.03 [facility] Comment on above: Performed By: #### T SH, FT3 #### [facility] [address] [place] [address] Dr. Charlotte Argueta IG % 0.6 % Critically high 0.0-0.5 [facility] Comment on above: Performed By: #### T SH, FT3 #### [facility] [address] [place] [address] Dr. Charlotte Argueta LYMPH # 0.8 103/ul Critically low 1.2-3.8 [facility] Comment on above: Performed By: #### T , FT3 #### [facility] [address] [place] [address] Dr. Charlotte Argueta Lymphocytes/100 WBC (Bld) 11.1 % Critically low 20.5-60.0 [facility] Comment on above: Performed By: #### T SH, FT3 #### [facility] [address] [place] [address] Dr. Charlotte Argueta MANUAL DIFF REQ NO Normal [facility] Comment on above: Performed By: #### T , FT3 #### [facility] [address] [place] [address] Dr. Charlotte Argueta MCH (RBC) [Entitic mass] 29.2 pg Normal 26.7-34.0 [facility] Comment on above: Performed By: #### T , FT3 #### [facility] [address] [place] [address] Dr. Charlotte Argueta MCHC (RBC) [Mass/Vol] 32.3 g/dL Normal 29.9-35.2 [facility] Comment on above: Performed By: #### T , FT3 #### [facility] [address] [place] [address] Dr. Charlotte Argueta MCV (RBC) [Entitic vol] 90.4 fL Normal 81.0-99.0 [facility] Comment on above: Performed By: #### T SH, FT3 #### [facility] [address] [place] [address] Dr. Charlotte Argueta MONO # 0.5 103/ul Normal 0.3-0.8 [facility] Comment on above: Performed By: #### T SH, FT3 #### [facility] [address] [address] [address] Charlotte Argueta Monocytes/100 WBC (Bld) 7.4 % Normal 1.7-12.0 [facility] Comment on above: Performed By: #### T SH, FT3 #### [facility] [address] [place] [address] Dr. Charlotte Argueta NEUT # 5.5 103/ul Normal 1.4-6.5 [facility] Comment on above: Performed By: #### T SH, FT3 #### [facility] [address] [place] [address] Dr. Charlotte Argueta Neutrophils/100 WBC (Bld) 79.9 % Critically high 43.0-75.0 [facility] Comment on above: Performed By: #### T SH, FT3 #### [facility] [address] [place] [address] Dr. Charlotte Argueta Platelet mean volume (Bld) [Entitic vol] 10.6 fL Normal 9.5-13.5 [facility] Comment on above: Performed By: #### T SH, FT3 #### [facility] [address] [place] [address] Dr. Charlotte Argueta PLT 388 103/ul Normal 150-450 [facility] Comment on above: Performed By: #### T SH, FT3 #### [facility] [address] [place] [address] Dr. Charlotte Argueta RBC 3.22 106/ul Critically low 4.20-5.40 [facility] Comment on above: Performed By: #### T SH, FT3 #### [facility] [address] [place] [address] Dr. Charlotte Argueat WBC 6.9 103/ul Normal 4.0-11.0 [facility] Comment on above: Performed By: #### T SH, FT3 #### [facility] [address] [place] [address] Dr. Charlotte Argueta IRON AND TIBCon 08-05-2022 % SATURATION 3.9 % Normal [facility] Comment on above: Performed By: #### B LDCX1 #### [facility] [address] [place] [address] Dr. Charlotte Argueta Iron [Mass/Vol] 10.0 ug/dL Critically low 50.0-170.0 [facility] Comment on above: Performed By: #### B LDCX1 #### [facility] [address] [place] [address] Dr. Charlotte Argueta TIBC DIRECT 255.0 ug/dL Normal 250.0-450.0 [facility] Comment on above: Performed By: #### B LDCX1 #### [facility] [address] [place] [address] Dr. Charlotte Argueta PROF 14(COMP METB)on 022 Albumin [Mass/Vol] 2.8 g/dL Critically low 3.4-5.0 [facility] Comment on above: Performed By: #### T MARY, FT3 #### [facility] [address] [place] [address] Dr. Charlotte Argueta Albumin/Globulin [Mass ratio] 0.8 {ratio} Normal [facility] Comment on above: Performed By: #### T MARY, FT3 #### [facility] [address] [place] [address] Dr. Charlotte Argueta ALP [Catalytic activity/Vol] 85 U/L Normal 46-116 [facility] Comment on above: Performed By: #### T MARY, FT3 #### [facility] [address] [place] [address] Dr. Charlotte Argueta ALT [Catalytic activity/Vol] 11 U/L Critically low 14-59 [facility] Comment on above: Performed By: #### T MARY, FT3 #### [facility] [address] [place] [address] Dr. Charlotte Argueta Anion gap [Moles/Vol] 10.6 mmol/L Normal [facility] Comment on above: Performed By: #### T MARY, FT3 #### [facility] [address] [place] [address] Dr. Charlotte Argueta AST [Catalytic activity/Vol] 23 U/L Normal 15-37 [facility] Comment on above: Performed By: #### T SH, FT3 #### [facility] [address] [place] [address] Dr. Charlotte Argueta Bilirubin [Mass/Vol] 0.1 mg/dL Critically low 0.2-1.0 [facility] Comment on above: Performed By: #### T SH, FT3 #### [facility] [address] [place] [address] Dr. Charlotte Argueta Calcium [Mass/Vol] 8.3 mg/dL Critically low 8.5-10.1 [facility] Comment on above: Performed By: #### T SH, FT3 #### [facility] [address] [place] [address] Dr. Charlotte Argueta Chloride [Moles/Vol] 101 mmol/L Normal 98-107 [facility] Comment on above: Performed By: #### T SH, FT3 #### [facility] [address] [place] [address] Dr. Charlotte Argueta CO2 [Moles/Vol] 28.4 mmol/L Normal 21.0-32.0 [facility] Comment on above: Performed By: #### T SH, FT3 #### [facility] [address] [place] [address] Dr. Charlotte Argueta Creatinine [Mass/Vol] 1.65 mg/dL Critically high 0.55-1.02 [facility] Comment on above: Performed By: #### T SH, FT3 #### [facility] [address] [place] [address] Dr. Charlotte Argueta EGFR-AF BAHAMIAN 36 mL/min/1.73m2 Critically low >=60 [facility] Comment on above: Performed By: #### T SH, FT3 #### [facility] [address] [place] [address] Dr. Charlotte Argueta EGFR-NON AF BAHAMIAN 30 mL/min/1.73m2 Critically low >=60 [facility] Comment on above: Performed By: #### T SH, FT3 #### [facility] [address] [place] [address] Dr. Charlotte Argueta Globulin (S) [Mass/Vol] 3.7 g/dL Normal [facility] Comment on above: Performed By: #### T SH, FT3 #### [facility] [address] [place] [address] Dr. Charlotte Argueta Glucose [Mass/Vol] 99 mg/dL Normal 74-106 [facility] Comment on above: Performed By: #### T SH, FT3 #### [facility] [address] [place] [address] Dr. Charlotte Argueta Potassium [Moles/Vol] 4.0 mmol/L Normal 3.5-5.1 [facility] Comment on above: Performed By: #### T SH, FT3 #### [facility] [address] [place] [address] Dr. Charlotte Argueta Protein [Mass/Vol] 6.5 g/dL Normal 6.4-8.2 [facility] Comment on above: Performed By: #### T SH, FT3 #### [facility] [address] [place] [address] Dr. Charlotte Argueta Sodium [Moles/Vol] 136 mmol/L Normal 136-145 [facility] Comment on above: Performed By: #### T SH, FT3 #### [facility] [address] [place] [address] Dr. Charlotte Argueta Urea nitrogen [Mass/Vol] 39.0 mg/dL Critically high 7.0-18.0 [facility] Comment on above: Performed By: #### T SH, FT3 #### [facility] [address] [place] [address] Dr. Charlotte Argueta Urea nitrogen/Creatinine [Mass ratio] 23.6 mg/mg Normal [facility] Comment on above: Performed By: #### T SH, FT3 #### [facility] [address] [place] [address] Dr. Charlotte Argueta RESPIRATORY PANEL PLUSon Adenovirus Not detected Normal NOT DETECTED [facility] Comment on above: Performed By: #### C MP #### [facility] [address] [place] [address] Dr. Charlotte Diamond Parapertusis Not detected Normal NOT DETECTED [facility] Comment on above: Performed By: #### C MP #### [facility] [address] [address] [address] Charlotte Diamond Pertussis Not detected Normal NOT DETECTED [facility] Comment on above: Performed By: #### C MP #### [facility] [address] [address] [address] Charlotte Argueta Chlamydia Pneumoniae Not detected Normal NOT DETECTED [facility] Comment on above: Performed By: #### C MP #### [facility] [address] [place] [address] Dr. Charlotte Argueta Coronavirus 229E Not detected Normal NOT DETECTED [facility] Comment on above: Performed By: #### C MP #### [facility] [address] [place] [address] Dr. Charlotte Argueta Coronavirus HKU1 Not detected Normal NOT DETECTED [facility] Comment on above: Performed By: #### C MP #### [facility] [address] [place] [address] Dr. Charlotte Argueta Coronavirus NL63 Not detected Normal NOT DETECTED [facility] Comment on above: Performed By: #### C MP #### [facility] [address] [place] [address] Dr. Charlotte Argueta Coronavirus OC43 Not detected Normal NOT DETECTED [facility] Comment on above: Performed By: #### C MP #### [facility] [address] [place] [address] Dr. Charlotte Argueta Influenza A H1 2009 Detected Abnormal NOT DETECTED [facility] Comment on above: Performed By: #### C MP #### [facility] [address] [place] [address] Dr. Charlotte Argueta Influenza A H3 Not detected Normal NOT DETECTED [facility] Comment on above: Performed By: #### C MP #### [facility] [address] [place] [address] Dr. Charlotte Argueta Influenza B Not detected Normal NOT DETECTED [facility] Comment on above: Performed By: #### C MP #### [facility] [address] [address] [address] Charlotte Argueta Metapneumovirus Not detected Normal NOT DETECTED [facility] Comment on above: Performed By: #### C MP #### [facility] [address] [place] [address] Dr. Charlotte Argueta Mycoplas. Pneumoniae Not detected Normal NOT DETECTED [facility] Comment on above: Performed By: #### C MP #### [facility] [address] [address] [address] Charlotte Argueta Parainfluenza 1 Not detected Normal NOT DETECTED [facility] Comment on above: Performed By: #### C MP #### [facility] [address] [place] [address] Dr. Charlotte Argueta Parainfluenza 2 Not detected Normal NOT DETECTED [facility] Comment on above: Performed By: #### C MP #### [facility] [address] [place] [address] Dr. Charlotte Argueta Parainfluenza 3 Not detected Normal NOT DETECTED [facility] Comment on above: Performed By: #### C MP #### [facility] [address] [place] [address] Dr. Charlotte Argueta Parainfluenza 4 Not detected Normal NOT DETECTED [facility] Comment on above: Performed By: #### C MP #### [facility] [address] [place] [address] Dr. Charlotte Argueta Rhino/Enterovirus Not detected Normal NOT DETECTED [facility] Comment on above: Performed By: #### C MP #### [facility] [address] [address] [address] Charlotte GONCALVES Header 1 RESPIRATORY PANEL: VIRUSES Normal [facility] Comment on above: Performed By: #### C MP #### [facility] [address] [place] [address] Dr. Charlotte GONCALVES Header 2 RESPIRATORY PANEL: BACTERIA Normal [facility] Comment on above: Performed By: #### C MP #### [facility] [address] [place] [address] Dr. Charlotte Argueta RSV Not detected Normal NOT DETECTED [facility] Comment on above: Performed By: #### C MP #### [facility] [address] [place] [address] Dr. Charlotte Argueta SARS-CoV-2 (COVID-19) RNA DANNY+probe Ql (Unsp spec) Not detected Normal NOT DETECTED [facility] Comment on above: Performed By: #### C MP #### [facility] [address] [place] [address] Dr. Charlotte Argueta VIT B12 AND FOLATEon 022 Cobalamin (Vitamin B12) [Mass/Vol] 2298.0 pg/mL Critically high 193.0-986.0 [facility] Comment on above: Performed By: #### B LDCX1 #### [facility] [address] [place] [address] Dr. Charlotte Argueta FOLATE 14.70 ng/mL Normal 8.60-58.90 [facility] Comment on above: Performed By: #### B LDCX1 #### [facility] [address] [place] [address] Dr. Charlotte Argueta XR CHEST 1 Von 08-05-2022 XR CHEST 1 V EXAMINATION: XR CHES T 1 V HISTORY: SHORTNESS OF BREATH , wheezing COMPARISON: XR chest 08/03/2022 FINDINGS: LUNGS: Minimal haziness within medial right lung base. Underexpanded lungs. VASCULATURE: No increased pulmonary vasculature. PLEURA: No pneumothorax, effusion, or pleural thickening. CARDIAC: No cardiomegaly or cardiac silhouette abnormality. MEDIASTINUM: No visible mass or adenopathy. BONES: No fracture or visible bone lesion. OTHER: Negative. IMPRESSION: 1. Trace amount of right basilar infiltrates versus residual edema; improved. Electronically authenticated by: NAHUM LOCKE Date: 2022-08-05 10:46 Normal [facility] BNPon 08-04-2022 Natriuretic peptide B (Bld) [Mass/Vol] 6043.0 pg/mL Critically high <=1,800.0 [facility] Comment on above: Performed By: #### L IVER #### [facility] [address] [place] [address] Dr. Charlotte Argueta CBC W MANUAL DIFFon 08-04-20 22 ATYPICAL LYMPH # Normal [facility] Comment on above: Performed By: #### T SH, FT3 #### [facility] [address] [place] [address] Dr. Charlotte Argueta ATYPICAL LYMPH % Normal [facility] Comment on above: Performed By: #### T SH, FT3 #### [facility] [address] [place] [address] Dr. Charlotte Argueta BAND # 0.0 103/ul Normal 0.0-0.3 [facility] Comment on above: Performed By: #### T SH, FT3 #### [facility] [address] [place] [address] Dr. Charlotte Argueta BAND % 0 % Normal 0-5 [facility] Comment on above: Performed By: #### T , FT3 #### [facility] [address] [place] [address] Dr. Charlotte Agrueta BASOM # 0.04 103/ul Normal 0.00-0.10 [facility] Comment on above: Performed By: #### T , FT3 #### [facility] [address] [place] [address] Dr. Charlotte Argueta BASOM % 1.0 % Normal 0.2-2.0 [facility] Comment on above: Performed By: #### T , FT3 #### [facility] [address] [place] [address] Dr. Charlotte Argueta BLAST # Normal [facility] Comment on above: Performed By: #### T SH, FT3 #### [facility] [address] [place] [address] Dr. Charlotte Argueta BLAST % Normal [facility] Comment on above: Performed By: #### T SH, FT3 #### [facility] [address] [place] [address] Dr. Charlotte Argueta CORRECTED WBC Normal 4.0-11.0 [facility] Comment on above: Performed By: #### T SH, FT3 #### [facility] [address] [address] [address] Charlotte Argueta EOS # 0.00 103/ul Normal 0.00-0.70 [facility] Comment on above: Performed By: #### T SH, FT3 #### [facility] [address] [address] [address] Charlotte Argueta EOS% 0.0 % Critically low 0.9-7.0 [facility] Comment on above: Performed By: #### T SH, FT3 #### [facility] [address] [address] [address] Charlotte Argueta HCT 29.9 % Critically low 36.0-48.0 [facility] Comment on above: Performed By: #### T SH, FT3 #### [facility] [address] [address] [address] Charlotte Argueta HGB 9.6 g/dl Critically low 12.0-16.0 [facility] Comment on above: Performed By: #### T SH, FT3 #### [facility] [address] [address] [address] Charlotte Argueta LYMPHM # 0.14 103/ul Critically low 1.20-3.[address] [facility] Comment on above: Performed By: #### T SH, FT3 #### [facility] [address] [address] [address] Charlotte Argueta LYMPHM% 3.0 % Critically low 20.5-60.0 [facility] Comment on above: Performed By: #### T SH, FT3 #### [facility] [address] [address] [address] Charlotte Argueta MCH 29.5 pg Normal 26.7-34.0 [facility] Comment on above: Performed By: #### T SH, FT3 #### [facility] [address] [address] [address] Charlotte Argueta MCHC 32.1 g/dl Normal 29.9-35.2 [facility] Comment on above: Performed By: #### T , FT3 #### [facility] [address] [place] [address] Dr. Charlotte Argueta MCV 92.0 fL Normal 81.0-99.0 [facility] Comment on above: Performed By: #### T , FT3 #### [facility] [address] [place] [address] Dr. Charlotte Argueta METAMYELOCYTE # Normal [facility] Comment on above: Performed By: #### T , FT3 #### [facility] [address] [place] [address] Dr. Charlotte Argueta METAMYELOCYTE % Normal [facility] Comment on above: Performed By: #### T , FT3 #### [facility] [address] [place] [address] Dr. Charlotte Argueta MONOM# 0.14 103/ul Critically low 0.30-0.[address] [facility] Comment on above: Performed By: #### T , FT3 #### [facility] [address] [place] [address] Dr. Charlotte Argueta MONOM% 3.0 % Normal 1.7-12.0 [facility] Comment on above: Performed By: #### T , FT3 #### [facility] [address] [place] [address] Dr. Charlotte Argueta MPV 10.5 fL Normal 9.5-13.5 [facility] Comment on above: Performed By: #### , FT3 #### [facility] [address] [place] [address] Dr. Charlotte Argueta MYELOCYTE # Normal [facility] Comment on above: Performed By: #### T , FT3 #### [facility] [address] [place] [address] Dr. Charlotte Argueta MYELOCYTE % Normal [facility] Comment on above: Performed By: #### T , FT3 #### [facility] [address] [place] [address] Dr. Charlotte Argueta NRBC Normal [facility] Comment on above: Performed By: #### T SH, FT3 #### [facility] [address] [address] [address] Charlotte Argueta PLT 364 103/ul Normal 150-450 [facility] Comment on above: Performed By: #### T SH, FT3 #### [facility] [address] [place], [place] [address] Dr. Charlotte Argueta RBC 3.25 106/ul Critically low 4.20-5.[address] [facility] Comment on above: Performed By: #### T SH, FT3 #### [facility] [address] [address] [address] Charlotte Argueta RDW 14.0 % Normal 11.0-15.0 [facility] Comment on above: Performed By: #### T SH, FT3 #### [facility] [address] [address] [address] Charlotte Argueta SEG # 4.18 103/ul Normal 1.40-6.50 [facility] Comment on above: Performed By: #### T SH, FT3 #### [facility] [address] [address] [address] Charlotte Argueta SEG % 93.0 % Critically high 43.0-75.[address] [facility] Comment on above: Performed By: #### T SH, FT3 #### [facility] [address] [address] [address] Charlotte Argueta WBC 4.5 103/ul Normal 4.0-11.0 [facility] Comment on above: Performed By: #### T SH, FT3 #### [facility] [address] [address] [address] Charlotte Argueta ECHOCARDIO M/2D COMPLETEon 1 10-05-2021 ECHOCARDIO M/2D COMPLETE Patient: EMY CHEATHAM Exam Date: 08/04/2022 : 1945 Gender:F Ordering : DR NASREEN MARY . Admission #: [id number] Family : Order #: [id number] CLICK HERE TO VIEW EXAM ECHOCARDIOGRAM REPORT PROCEDURE: CARDIO PULMONARY ECHOCARDIO M/2D COMP INDICATIONS: Elevated BNP, atrial fibrillation, hypertension COMPARISON: None. DESCRIPTION: COMPLETE ECHOCARDIOGRAM Real-time transthoracic echocardiography with 2D, M-mode, spectral and color flow Doppler performed. QUALITY: Technical quality was good. 65 253# BP 131/92 LEFT VENTRICLE: Normal chamber size. Proximal septal hypertrophy (sigmoid septum). LV EF: Global left ventricular systolic function is difficult to assess but appears preserved; visually estimated ejection fraction is 55 to 60%. Cannot comment on regional wall motion abnormalities. Consider contrast study for better evaluation of endocardial borders. DIASTOLIC: Diastolic function is indeterminate. ATRIAL SEPTUM: Visually appears intact. LEFT ATRIUM: Moderate dilatation. RIGHT ATRIUM: Moderate dilatation. RIGHT VENTRICLE: Mild dilatation. Normal right ventricular systolic function. TRICUSPID VALVE: Normal mobility and thickness. No stenosis with trivial regurgitation. Doppler studies reveal moderately (45-60) elevated right sided pressures.RVSP 60 mmHg MITRAL VALVE: Normal mobility and thickness. No evidence of mitral valve stenosis. Mild mitral annular calcification. Trivial mitral regurgitation. AORTIC VALVE: Normal trileaflet appearance. Mildly calcified aortic valve. Normal leaflet mobility. No evidence of aortic valve stenosis. No aortic regurgitation. AORTIC ROOT: Normal diameter and appearance. PULMONIC VALVE: Not well visualized. No stenosis. No regurgitation. PERICARDIUM: Anterior free space; trivial effusion versus fat pad. IVC: IVC is mildly dilated with no collapse. PLEURA: CONCLUSION: Global left ventricular systolic function is normal; visually estimated ejection fraction of 55 to 60%. Cannot comment on regional wall motion abnormalities. Diastolic function is indeterminate. Biatrial enlargement. The right ventricle is mildly dilated with normal systolic function. Moderate to severely elevated right-sided pressures. RVSP 60 mmHg. Anterior free space; trivial effusion versus fat pad. Adult Echocardiography Procedure Report Left Ventricle LVEDD (3.7 - 5.6 cm): 4.24 cm LVESD (2.2 - 4.0 cm): 3.02 cm LVIVS thickness (0.6 - 1.2 cm): 1.28 cm LVPW thickness (0.5 - 1.0 cm): 0.92 cm e': 0.14 m/s E - e': 5.46 LVOT Max Gradient: 4.25 mm[Hg] Peak Velocity (LVOT): 1.03 m/s LVOT Diameter 2.38 cm Left Ventricular Ejection Fraction: 55.75 %, 55.75 % Left Atrium Left Atrium Systolic Dimension: 4.66 cm Mitral Valve MV E to A Ratio: 1.15 Mitral Valve A-Wave Peak Velocity: 0.68 m/s Mitral Valve E-Wave Peak Velocity: 0.79 m/s Right Ventricle Aorta AO Root Diam: 3.16 cm Aortic Valve AoV Area (Peak Mahamed): 3.68 cm2, 3.68 cm2 Peak Velocity(Antegrade Flow): 1.24 m/s Peak Gradient(Antegrade Flow): 6.19 mm[Hg] Tricuspid Valve Peak Velocity (Regurgitant Flow): 3.34 m/s, 2.72 m/s Pulmonic Valve Peak Velocity: 0.84 m/s, 0.87 m/s Peak Gradient: 2.83 mm[Hg], 3.01 mm[Hg] Right Atrium Right Atrium Systolic Pressure: 87.09 ml, 87.09 ml Dictated by: Kevin Love M.D. on 08/09/2022 at 09:55 Approved by: Kevin Love M.D. on 08/09/2022 at 09:59 Normal [facility] FREE T3on 08-04-2022 FREE T3 0.63 pg/mlL Critically low 2.18-3.[address] [facility] Comment on above: Performed By: #### I NFLUAB #### [facility] [address] [place] [address] Dr. Cahrlotte Argueta PROF CHEM 8 (BAS METB)on Anion gap [Moles/Vol] 13.2 mmol/L Normal [facility] Comment on above: Performed By: #### L IVER #### [facility] [address] [place] [address] Dr. Charlotte Argueta Calcium [Mass/Vol] 8.3 mg/dL Critically low 8.5-10.1 [facility] Comment on above: Performed By: #### L IVER #### [facility] [address] [place] [address] Dr. Charlotte Argueta Chloride [Moles/Vol] 103 mmol/L Normal 98-107 [facility] Comment on above: Performed By: #### L IVER #### [facility] [address] [place] [address] Dr. Charlotte Argueta CO2 [Moles/Vol] 24.9 mmol/L Normal 21.0-32.0 [facility] Comment on above: Performed By: #### L IVER #### [facility] [address] [address] [address] Charlotte Argueta Creatinine [Mass/Vol] 1.66 mg/dL Critically high 0.55-1.02 [facility] Comment on above: Performed By: #### L IVER #### [facility] [address] [address] [address] Charlotte Argueta EGFR-AF BAHAMIAN 36 mL/min/1.73m2 Critically low >=60 [facility] Comment on above: Performed By: #### L IVER #### [facility] [address] [place] [address] Dr. Charlotte Argueta EGFR-NON AF BAHAMIAN 30 mL/min/1.73m2 Critically low >=60 [facility] Comment on above: Performed By: #### L IVER #### [facility] [address] [address] [address] Charlotte Argueta Glucose [Mass/Vol] 158 mg/dL Critically high 74-106 [facility] Comment on above: Performed By: #### L IVER #### [facility] [address] [place] [address] Dr. Charlotte Argueta Potassium [Moles/Vol] 4.1 mmol/L Normal 3.5-5.1 [facility] Comment on above: Performed By: #### L IVER #### [facility] [address] [address] [address] Charlotte Argueta Sodium [Moles/Vol] 137 mmol/L Normal 136-145 [facility] Comment on above: Performed By: #### L IVER #### [facility] [address] [address] [address] Charlotte Argueta Urea nitrogen [Mass/Vol] 36.0 mg/dL Critically high 7.0-18.0 [facility] Comment on above: Performed By: #### L IVER #### [facility] [address] [place] [address] Dr. Charlotte Argueta Urea nitrogen/Creatinine [Mass ratio] 21.7 mg/mg Normal [facility] Comment on above: Performed By: #### L IVER #### [facility] [address] [place] [address] Dr. Charlotte Argueta TSHon 08-04-2022 TSH 1.051 uIU/mL Normal 0.358-3.740 [facility] Comment on above: Performed By: #### I NFLUAB #### [facility] [address] [place] [address] Dr. Charlotte Argueta BNPon 08-03-2022 Natriuretic peptide B (Bld) [Mass/Vol] 2399.0 pg/mL Critically high <=1,800.0 [facility] Comment on above: Performed By: #### I NFLUAB #### [facility] [address] [place] [address] Dr. Charlotte Argueta CBC AUTO DIFFon 08-03-2022 BASO # 0.1 103/ul Normal 0.0-0.1 [facility] Comment on above: Performed By: #### B LDCX1 #### [facility] [address] [place] [address] Dr. Charlotte Argueta Basophils/100 WBC (Bld) 0.7 % Normal 0.2-2.0 [facility] Comment on above: Performed By: #### B LDCX1 #### [facility] [address] [place] [address] Dr. Charlotte Argueta EO # 0.2 103/ul Normal 0.0-0.7 [facility] Comment on above: Performed By: #### B LDCX1 #### [facility] [address] [place] [address] Dr. Charlotte Argueta Eosinophils/100 WBC (Bld) 3.1 % Normal 0.9-7.0 [facility] Comment on above: Performed By: #### B LDCX1 #### [facility] [address] [place] [address] Dr. Charlotte Argueta Erythrocyte distribution width (RBC) [Ratio] 14.2 % Normal 11.0-15.0 [facility] Comment on above: Performed By: #### B LDCX1 #### [facility] [address] [place] [address] Dr. Charlotte Argueta Hematocrit (Bld) [Volume fraction] 30.9 % Critically low 36.0-48.0 [facility] Comment on above: Performed By: #### B LDCX1 #### [facility] [address] [place] [address] Dr. Charlotte Argueta Hemoglobin (Bld) [Mass/Vol] 9.9 g/dL Critically low 12.0-16.0 [facility] Comment on above: Performed By: #### B LDCX1 #### [facility] [address] [place] [address] Dr. Charlotte Argueta IG # 0.04 10e3/ul Critically high 0.00-0.03 [facility] Comment on above: Performed By: #### B LDCX1 #### [facility] [address] [place] [address] Dr. Charlotte Argueta IG % 0.5 % Normal 0.0-0.5 [facility] Comment on above: Performed By: #### B LDCX1 #### [facility] [address] [place] [address] Dr. Charlotte Argueta LYMPH # 1.0 103/ul Critically low 1.2-3.8 [facility] Comment on above: Performed By: #### B LDCX1 #### [facility] [address] [place] [address] Dr. Charlotte Argueta Lymphocytes/100 WBC (Bld) 13.5 % Critically low 20.5-60.0 [facility] Comment on above: Performed By: #### B LDCX1 #### [facility] [address] [place] [address] Dr. Charlotte Argueta MANUAL DIFF REQ NO Normal [facility] Comment on above: Performed By: #### B LDCX1 #### [facility] [address] [place] [address] Dr. Charlotte Argueta MCH (RBC) [Entitic mass] 29.6 pg Normal 26.7-34.0 [facility] Comment on above: Performed By: #### B LDCX1 #### [facility] [address] [place] [address] Dr. Charlotte Argueta MCHC (RBC) [Mass/Vol] 32.0 g/dL Normal 29.9-35.2 [facility] Comment on above: Performed By: #### B LDCX1 #### [facility] [address] [place] [address] Dr. Charlotte Argueta MCV (RBC) [Entitic vol] 92.2 fL Normal 81.0-99.0 [facility] Comment on above: Performed By: #### B LDCX1 #### [facility] [address] [place] [address] Dr. Charlotte Argueta MONO # 0.7 103/ul Normal 0.3-0.8 [facility] Comment on above: Performed By: #### B LDCX1 #### [facility] [address] [place] [address] Dr. Charlotte Argueta Monocytes/100 WBC (Bld) 10.0 % Normal 1.7-12.0 [facility] Comment on above: Performed By: #### B LDCX1 #### [facility] [address] [place] [address] Dr. Charlotte Argueta NEUT # 5.3 103/ul Normal 1.4-6.5 [facility] Comment on above: Performed By: #### B LDCX1 #### [facility] [address] [place] [address] Dr. Charlotte Argueta Neutrophils/100 WBC (Bld) 72.2 % Normal 43.0-75.0 [facility] Comment on above: Performed By: #### B LDCX1 #### [facility] [address] [place] [address] Dr. Charlotte Argueta Platelet mean volume (Bld) [Entitic vol] 10.3 fL Normal 9.5-13.5 [facility] Comment on above: Performed By: #### B LDCX1 #### [facility] [address] [place] [address] Dr. Charlotte Argueta PLT 385 103/ul Normal 150-450 [facility] Comment on above: Performed By: #### B LDCX1 #### [facility] [address] [place] [address] Dr. Charlotte Argueta RBC 3.35 106/ul Critically low 4.20-5.40 [facility] Comment on above: Performed By: #### B LDCX1 #### [facility] [address] [place] [address] Dr. Charlotte Argueta WBC 7.3 103/ul Normal 4.0-11.0 [facility] Comment on above: Performed By: #### B LDCX1 #### [facility] [address] [place] [address] Dr. Charlotte Argueta CULTURE BLOODon 08-03-2022 Microscopic examination of blood, culture Culture Observations: NO GROWTH AT 5 DAYS. Normal [facility] Comment on above: Performed By: #### T MARY, FT3 #### [facility] [address] [place] [address] Dr. Charlotte Argueta Microscopic examination of blood, culture Culture Observations: NO GROWTH AT 5 DAYS. Normal [facility] Comment on above: Performed By: #### B LDCX1 #### [facility] [address] [place] [address] Dr. Charlotte Argueta CULTURE URINEon 08-03-2022 CULTURE URINE Culture Observations : NO GROWTH. Normal [facility] Comment on above: Performed By: #### T MARY, FT3 #### [facility] [address] [place] [address] Dr. Charlotte Argueta [facility]on SARS-CoV-2 (COVID-19) RNA DANNY+probe Ql (Unsp spec) Not detected Normal NOT DETECTED [facility] Comment on above: Result Comment: When diagnostic testing is negative, the possibility of a false negative should be considered in the context of a patient's recent exposures and the presence of clinical signs and symptoms consistent with SARS-CoV-2. This test is not yet approved or cleared by the [place] FDA. When there are no FDA-approved or cleared tests available, and other criteria are met, FDA can make tests available under an emergency access mechanism called an Emergency Use Authorization (EUA). The EUA for this test is supported by the [employer] of Health and Human Service's declaration that circumstances exist to justify the emergency use of in vitro diagnostics for the detection and/or diagnosis of the virus that causes COVID-19. This EUA will remain in effect for the duration of the COVID-19 declaration justifying emergency of IVDs, unless it is terminated or revoked by the FDA (after which the test may no longer be used). Performed By: #### B LDCX1 #### [facility] [address] [place] [address] Dr. Charlotte Argueta ER URINE PROFILEon 2 Bilirubin Ql (U) Negative Normal NEGATIVE [facility] Comment on above: Performed By: #### T SH, FT3 #### [facility] [address] [place] [address] Dr. Charlotte Argueta Clarity (U) CLEAR Normal CLEAR [facility] Comment on above: Performed By: #### T SH, FT3 #### [facility] [address] [place] [address] Dr. Charlotte Argueta Color (U) LT. YELLOW Normal YELLOW [facility] Comment on above: Performed By: #### T SH, FT3 #### [facility] [address] [place] [address] Dr. Charlotte Argueta ERUAHD A micrscopic examination will be performed if indicated. Normal [facility] Comment on above: Performed By: #### T SH, FT3 #### [facility] [address] [place] [address] Dr. Charlotte Argueta Glucose Ql (U) Negative Normal NEGATIVE [facility] Comment on above: Performed By: #### T SH, FT3 #### [facility] [address] [place] [address] Dr. Charlotte Argueta Hemoglobin Ql (U) TRACE-INTACT Abnormal NEGATIVE [facility] Comment on above: Performed By: #### T SH, FT3 #### [facility] [address] [place] [address] Dr. Charlotte Argueta Ketones Ql (U) Negative Normal NEGATIVE [facility] Comment on above: Performed By: #### T SH, FT3 #### [facility] [address] [place] [address] Dr. Charlotte Argueta LEUKOCYTES LARGE Abnormal NEGATIVE [facility] Comment on above: Performed By: #### T SH, FT3 #### [facility] [address] [place] [address] Dr. Charlotte Argueta Nitrite Ql (U) Negative Normal NEGATIVE [facility] Comment on above: Performed By: #### T SH, FT3 #### [facility] [address] [place] [address] Dr. Charlotte Argueta pH (U) 5.0 [pH] Normal 5-9 [facility] Comment on above: Performed By: #### T SH, FT3 #### [facility] [address] [place] [address] Dr. Charlotte Argueta SPEC GRAVITY 1.025 Normal 1.005-<=1.[address] [facility] Comment on above: Performed By: #### T SH, FT3 #### [facility] [address] [place] [address] Dr. Charlotte Argueta UA PROTEIN Negative Normal NEGATIVE/ TRACE [facility] Comment on above: Performed By: #### T SH, FT3 #### [facility] [address] [place] [address] Dr. Charlotte Argueta UR MICRO IND INDICATED Normal [facility] Comment on above: Performed By: #### T SH, FT3 #### [facility] [address] [place] [address] Dr. Charlotte Argueta Urobilinogen Qn (U) 0.2 {Kathia'U}/dL Normal 0.2 - 1. 0 [facility] Comment on above: Performed By: #### T SH, FT3 #### [facility] [address] [place] [address] Dr. Charlotte Argueta FREE T4on 08-03-2022 Free T4 [Mass/Vol] 0.99 ng/dL Normal 0.76-1.46 [facility] Comment on above: Performed By: #### T , FT3 #### [facility] [address] [place] [address] Dr. Charlotte Argueta INFLUENZA A AND B AGon 08-03 INFLUANEGH SEE BELOW Normal [facility] Comment on above: Result Comment: Nega tive for Flu A protein angiten. Infection due to Flu A cannot be ruled out. Flu A angiten in the sample may be below the detection limit of the test. Performed By: #### I NFLUAB #### [facility] [address] [place] [address] Dr. Charlotte Argueta INFLUBNEG SEE BELOW Normal [facility] Comment on above: Result Comment: Nega tive for Flu B protein antigen. Infection due to Flu B cannot be ruled out. Flu B antigen in the sample may be below the detection limit of the test. Performed By: #### I NFLUAB #### [facility] [address] [place] [address] Dr. Charlotte Argueta INFLUENZA A AG Negative Normal NEGATIVE SEE COMMENT [facility] Comment on above: Performed By: #### I NFLUAB #### [facility] [address] [place] [address] Dr. Charlotte Argueta INFLUENZA B AG Negative Normal NEGATIVE SEE COMMENT [facility] Comment on above: Performed By: #### I NFLUAB #### [facility] [address] [place] [address] Dr. Charlotte Argueta INTERNAL CONTROLS Within Normal Limits Normal Wi thin Normal Limits [facility] Comment on above: Performed By: #### I NFLUAB #### [facility] [address] [place] [address] Dr. Charlotte Argueta LIPASEon 08-03-2022 Lipase [Catalytic activity/Vol] 28.0 U/L Critically low 73.0-393.0 [facility] Comment on above: Performed By: #### L IVER #### [facility] [address] [place] [address] Dr. Charlotte Argueta PH VENOUS BLOODon 08-03-2022 PCO2 VENOUS 33.0 mmHg Critically low 40.0-52.[address] [facility] Comment on above: Performed By: #### L IVER #### [facility] [address] [address] [address] Charlotte Argueta pH VENOUS 7.417 Normal 7.330-7.430 [facility] Comment on above: Performed By: #### L IVER #### [facility] [address] [address] [address] Charlotte Argueta PROF 14(COMP METB)on 022 Albumin [Mass/Vol] 3.0 g/dL Critically low 3.4-5.0 [facility] Comment on above: Performed By: #### L IVER #### [facility] [address] [place] [address] Dr. Charlotte Argueta Albumin/Globulin [Mass ratio] 0.8 {ratio} Normal [facility] Comment on above: Performed By: #### L IVER #### [facility] [address] [address] [address] Charlotte Argueta ALP [Catalytic activity/Vol] 110 U/L Normal 46-116 [facility] Comment on above: Performed By: #### L IVER #### [facility] [address] [place] [address] Dr. Charlotte Argueta ALT [Catalytic activity/Vol] 11 U/L Critically low 14-59 [facility] Comment on above: Performed By: #### L IVER #### [facility] [address] [address] [address] Charlotte Argueta Anion gap [Moles/Vol] 13.2 mmol/L Normal [facility] Comment on above: Performed By: #### L IVER #### [facility] [address] [address] [address] Charlotte Argueta AST [Catalytic activity/Vol] 19 U/L Normal 15-37 [facility] Comment on above: Performed By: #### L IVER #### [facility] [address] [address] [address] Charlotte Argueta Bilirubin [Mass/Vol] 0.1 mg/dL Critically low 0.2-1.0 [facility] Comment on above: Performed By: #### L IVER #### [facility] [address] [address] [address] Charlotte Argueta Calcium [Mass/Vol] 8.5 mg/dL Normal 8.5-10.1 [facility] Comment on above: Performed By: #### L IVER #### [facility] [address] [address] [address] Charlotte Argueta Chloride [Moles/Vol] 104 mmol/L Normal 98-107 [facility] Comment on above: Performed By: #### L IVER #### [facility] [address] [address] [address] Charlotte Argueta CO2 [Moles/Vol] 25.0 mmol/L Normal 21.0-32.0 [facility] Comment on above: Performed By: #### L IVER #### [facility] [address] [address] [address] Charlotte Argueta Creatinine [Mass/Vol] 1.50 mg/dL Critically high 0.55-1.02 [facility] Comment on above: Performed By: #### L IVER #### [facility] [address] [place] [address] Dr. Charlotte Argueta EGFR-AF BAHAMIAN 41 mL/min/1.73m2 Critically low >=60 [facility] Comment on above: Performed By: #### L IVER #### [facility] [address] [address] [address] Charlotte Argueta EGFR-NON AF BAHAMIAN 34 mL/min/1.73m2 Critically low >=60 [facility] Comment on above: Performed By: #### L IVER #### [facility] [address] [address] [address] Charlotte Argueta Globulin (S) [Mass/Vol] 3.8 g/dL Normal [facility] Comment on above: Performed By: #### L IVER #### [facility] [address] [address] [address] Charlotte Argueta Glucose [Mass/Vol] 140 mg/dL Critically high 74-106 T [facility] Comment on above: Performed By: #### L IVER #### [facility] [address] [address] [address] Charlotte Argueta Potassium [Moles/Vol] 4.2 mmol/L Normal 3.5-5.1 [facility] Comment on above: Performed By: #### L IVER #### [facility] [address] [address] [address] Charlotte Argueta Protein [Mass/Vol] 6.8 g/dL Normal 6.4-8.2 [facility] Comment on above: Performed By: #### L IVER #### [facility] [address] [address] [address] Charlotte Argueta Sodium [Moles/Vol] 138 mmol/L Normal 136-145 [facility] Comment on above: Performed By: #### L IVER #### [facility] [address] [address] [address] Charlotte Argueta Urea nitrogen [Mass/Vol] 35.0 mg/dL Critically high 7.0-18.0 [facility] Comment on above: Performed By: #### L IVER #### [facility] [address] [place] [address] Dr. Charlotte Argueta Urea nitrogen/Creatinine [Mass ratio] 23.3 mg/mg Normal [facility] Comment on above: Performed By: #### L IVER #### [facility] [address] [place] [address] Dr. Charlotte Argueta PROTIMEon 08-03-2022 INR Coag (PPP) [Relative time] 0.94 {INR} Normal [facility] Comment on above: Performed By: #### C MREP #### [facility] [address] [place] [address] Dr. Charlotte Argueta INR GUIDELINES SEE BELOW Normal [facility] Comment on above: Result Comment: CORI RED INR: 2.0 - 3.0 CONDITIONS NOT LISTED BELOW 2.5 - 3.5 FOR PROSTHETIC HEART VALVE REPLACEMENT 2.5 - 3.5 RECURRENT THROMBOSIS Performed By: #### C MREP #### [facility] [address] [place] [address] Dr. Charlotte Argueta PT Coag (PPP) [Time] 10.2 s Normal 9.0-11.6 [facility] Comment on above: Performed By: #### C MREP #### [facility] [address] [place] [address] Dr. Charlotte Argueta PTTon 08-03-2022 aPTT Coag (Bld) [Time] 30.8 s Normal 22.3-36.2 [facility] Comment on above: Performed By: #### C MREP #### [facility] [address] [place] [address] Dr. Charlotte Argueta TROPONIN, HIGH SENSITIVITYon 08-03-2022 HSTROP 12.2 pg/mL Normal 4.0-51.3 [facility] Comment on above: Result Comment: CUT- OFF POINTS HAVE BEEN ESTABLISHED BASED ON THE FOURTH UNIVERSAL DEFINITIONS OF MYOCARDIAL INFARCTION. THE UPPER REFERENCE LIMIT (URL) OF TROPONIN, DEFINED THE 99TH PERCENTILE OF cTnI DISTRIBUTION IN A REFERENCE POPULATION, HAS BEEN CONFIRMED THE DECISION THRESHOLD FOR [place] DIAGNOSIS. Performed By: #### I NFLUAB #### [facility] [address] [place] [address] Dr. Charlotte Argueta TSHon 08-03-2022 TSH 2.222 uIU/mL Normal 0.358-3.740 [facility] Comment on above: Performed By: #### I NFLUAB #### [facility] [address] [place] [address] Dr. Charlotte Argueta URINE MICROSCOPIC ONLYon BACTERIA NONE SEEN Normal NONE SEEN [facility] Comment on above: Performed By: #### T SH, FT3 #### [facility] [address] [place] [address] Dr. Charlotte Argueta Bacteria identified Cx Nom (U) INDICATED Normal [facility] Comment on above: Performed By: #### T SH, FT3 #### [facility] [address] [place] [address] Dr. Charlotte Argueta CAST NONE SEEN Normal NONE SEEN [facility] Comment on above: Performed By: #### T SH, FT3 #### [facility] [address] [place] [address] Dr. Charlotte Argueta Crystals LM Nom (Urine sed) NONE SEEN Normal NONE SEEN [facility] Comment on above: Performed By: #### T SH, FT3 #### [facility] [address] [place] [address] Dr. Charlotte Argueta Epithelial cells LM Ql (Urine sed) RARE Normal NONE SEEN /RARE [facility] Comment on above: Performed By: #### T SH, FT3 #### [facility] [address] [place] [address] Dr. Charlotte Argueta MUCOUS NONE SEEN Normal NONE SEEN [facility] Comment on above: Performed By: #### T SH, FT3 #### [facility] [address] [place] [address] Dr. Charlotte Argueta RBC 2-5 Abnormal 0-2 [facility] Comment on above: Performed By: #### T SH, FT3 #### [facility] [address] [place] [address] Dr. Charlotte Argueta WBC 20-50 Abnormal NONE SEEN [facility] Comment on above: Performed By: #### T SH, FT3 #### [facility] [address] [place] [address] Dr. Charlotte Argueta XR CHEST 1 Von 08-03-2022 XR CHEST 1 V EXAMINATION: XR CHES T 1 V HISTORY: SHORTNESS OF BREATH COMPARISON: 01/21/2022 TECHNIQUE: Portable FINDINGS: LUNGS: Mild parenchymal opacities with a central distribution VASCULATURE: Mildly increased pulmonary vasculature. PLEURA: No pneumothorax, effusion, or pleural thickening. CARDIAC: No cardiomegaly or cardiac silhouette abnormality. MEDIASTINUM: No visible mass or adenopathy. BONES: Prior resection bilateral distal clavicle. Surgical anchors right humeral head OTHER: Negative. IMPRESSION: Pulmonary vascular congestion/pulmonary edema Electronically authenticated by: CHARLENE FABIAN Date: 2022-08-03 18:38 Normal [facility] XR HIP RT 2 3V W PELVISon XR HIP RT 2 3V W PELVIS PLAIN FILM HIP RIGHT HISTORY: Patient is status post total hip arthroplasty TECHNIQUE: 2 views of the right hip and 1 view of the pelvis are submitted for review. COMPARISON: Right hip dated 06/22/2021 Right femur dated 05/04/2021 FINDINGS: Total hip arthroplasty hardware is demonstrated. There is no evidence for acute fracture of the orthopedic hardware. Alignment is near anatomical. Postoperative changes are seen involving the right iliac wing and the right pubic rami. There are also postop changes seen overlying the left iliac wing and the visualized portions of the lumbar spine although incompletely imaged. Bone mineralization is decreased. Subcutaneous edema present. IMPRESSION: Stable right total hip arthroplasty without evidence of orthopedic hardware fracture. Electronically authenticated by: KERMIT THAPA Date: 2022-08-03 18:47 Normal [facility] CBC AUTO DIFFon 01-25-2022 BASO # 0.1 103/ul Normal 0.0-0.1 [facility] Comment on above: Performed By: #### T SH, FT3 #### [facility] [address] [place] [address] Dr. Charlotte Argueta Basophils/100 WBC (Bld) 0.7 % Normal 0.2-2.0 [facility] Comment on above: Performed By: #### T SH, FT3 #### [facility] [address] [address] [address] Charlotte Argueta EO # 0.6 103/ul Normal 0.0-0.7 [facility] Comment on above: Performed By: #### T , FT3 #### [facility] [address] [address] [address] Charlotte Argueta Eosinophils/100 WBC (Bld) 7.2 % Critically high 0.9-7.0 [facility] Comment on above: Performed By: #### T , FT3 #### [facility] [address] [address] [address] Charlotte Argueta Erythrocyte distribution width (RBC) [Ratio] 14.5 % Normal 11.0-15.0 [facility] Comment on above: Performed By: #### T SH, FT3 #### [facility] [address] [address] [address] Charlotte Argueta Hematocrit (Bld) [Volume fraction] 32.9 % Critically low 36.0-48.0 [facility] Comment on above: Performed By: #### T SH, FT3 #### [facility] [address] [place] [address] Dr. Charlotte Argueta Hemoglobin (Bld) [Mass/Vol] 10.1 g/dL Critically low 12.0-16.0 [facility] Comment on above: Performed By: #### T SH, FT3 #### [facility] [address] [place] [address] Dr. Charlotte Argueta IG # 0.06 10e3/ul Critically high 0.00-0.03 [facility] Comment on above: Performed By: #### T SH, FT3 #### [facility] [address] [place] [address] Dr. Charlotte Argueta IG % 0.7 % Critically high 0.0-0.[address] [facility] Comment on above: Performed By: #### T MARY, FT3 #### [facility] [address] [place] [address] Dr. Charlotte Argueta LYMPH # 2.5 103/ul Normal 1.2-3.8 [facility] Comment on above: Performed By: #### T SH, FT3 #### [facility] [address] [place] [address] Dr. Charlotte Argueta Lymphocytes/100 WBC (Bld) 30.4 % Normal 20.5-60.0 [facility] Comment on above: Performed By: #### T SH, FT3 #### [facility] [address] [place] [address] Dr. Charlotte Argueta MANUAL DIFF REQ NO Normal [facility] Comment on above: Performed By: #### T SH, FT3 #### [facility] [address] [place] [address] Dr. Charlotte Argueta MCH (RBC) [Entitic mass] 29.6 pg Normal 26.7-34.0 [facility] Comment on above: Performed By: #### T SH, FT3 #### [facility] [address] [place] [address] Dr. Charlotte Argueta MCHC (RBC) [Mass/Vol] 30.7 g/dL Normal 29.9-35.2 [facility] Comment on above: Performed By: #### T MARY, FT3 #### [facility] [address] [place] [address] Dr. Charlotte Argueta MCV (RBC) [Entitic vol] 96.5 fL Normal 81.0-99.0 [facility] Comment on above: Performed By: #### T MARY, FT3 #### [facility] [address] [place] [address] Dr. Charlotte Argueta MONO # 0.7 103/ul Normal 0.3-0.8 [facility] Comment on above: Performed By: #### T MARY, FT3 #### [facility] [address] [place] [address] Dr. Charlotte Argueta Monocytes/100 WBC (Bld) 8.9 % Normal 1.7-12.0 [facility] Comment on above: Performed By: #### T MARY, FT3 #### [facility] [address] [place] [address] Dr. Charlotte Argueta NEUT # 4.2 103/ul Normal 1.4-6.5 [facility] Comment on above: Performed By: #### Andi HERNANDEZ, FT3 #### [facility] [address] [place] [address] Dr. Charlotte Argueta Neutrophils/100 WBC (Bld) 52.1 % Normal 43.0-75.0 [facility] Comment on above: Performed By: #### Andi HERNANDEZ, FT3 #### [facility] [address] [place] [address] Dr. Charlotte Argueta Platelet mean volume (Bld) [Entitic vol] 10.2 fL Normal 9.5-13.5 [facility] Comment on above: Performed By: #### T MARY, FT3 #### [facility] [address] [place] [address] Dr. Charlotte Argueta PLT 450 103/ul Normal 150-450 [facility] Comment on above: Performed By: #### T MARY, FT3 #### [facility] [address] [address] [address] Charlotte Argueta RBC 3.41 106/ul Critically low 4.20-5.40 [facility] Comment on above: Performed By: #### T , FT3 #### [facility] [address] [place] [address] Dr. Charlotte Argueta WBC 8.1 103/ul Normal 4.0-11.0 [facility] Comment on above: Performed By: #### T , FT3 #### [facility] [address] [place] [address] Dr. Charlotte Argueta PROF CHEM 8 (BAS METB)on Anion gap [Moles/Vol] 14.4 mmol/L Normal [facility] Comment on above: Performed By: #### B MP #### [facility] [address] [place] [address] Dr. Charlotte Argueta Calcium [Mass/Vol] 8.8 mg/dL Normal 8.5-10.1 [facility] Comment on above: Performed By: #### B MP #### [facility] [address] [place] [address] Dr. Charlotte Argueta Chloride [Moles/Vol] 102 mmol/L Normal 98-107 [facility] Comment on above: Performed By: #### B MP #### [facility] [address] [place] [address] Dr. Charlotte Argueta CO2 [Moles/Vol] 25.7 mmol/L Normal 21.0-32.0 [facility] Comment on above: Performed By: #### B MP #### [facility] [address] [place] [address] Dr. Charlotte Argueta Creatinine [Mass/Vol] 1.59 mg/dL Critically high 0.55-1.02 [facility] Comment on above: Performed By: #### B MP #### [facility] [address] [place] [address] Dr. Charlotte Argueta EGFR-AF BAHAMIAN 38 mL/min/1.73m2 Critically low >=60 [facility] Comment on above: Performed By: #### B MP #### [facility] [address] [address] [address] Charlotte Argueta EGFR-NON AF BAHAMIAN 31 mL/min/1.73m2 Critically low >=60 [facility] Comment on above: Performed By: #### B MP #### [facility] [address] [address] [address] Charlotte Argueta Glucose [Mass/Vol] 88 mg/dL Normal 74-106 [facility] Comment on above: Performed By: #### B MP #### [facility] [address] [address] [address] Charlotte Argueta Potassium [Moles/Vol] 4.1 mmol/L Normal 3.5-5.1 [facility] Comment on above: Performed By: #### B MP #### [facility] [address] [address] [address] Charlotte Argueta Sodium [Moles/Vol] 138 mmol/L Normal 136-145 [facility] Comment on above: Performed By: #### B MP #### [facility] [address] [address] [address] Charlotte Argueta Urea nitrogen [Mass/Vol] 37.0 mg/dL Critically high 7.0-18.0 [facility] Comment on above: Performed By: #### B MP #### [facility] [address] [address] [address] Charlotte Argueta Urea nitrogen/Creatinine [Mass ratio] 23.3 mg/mg Normal [facility] Comment on above: Performed By: #### B MP #### [facility] [address] [address] [address] Charlotte Argueta VIT D 1 25 DIHYDROXYon 01-25 Calcitriol(1,25 di-OH Vit D) 47.8 pg/mL Normal 19.9-79.3 [facility] Comment on above: Result Comment: Ef fective February 06, 2022 Calcitriol(1,25 di-OH Vit D) reference interval will be changing to: pg/mL . 0 - 6 months: 44.3 - 212.9 7 months - 1 year: 40.3 - 112.4 >1 year: 24.8 - 81.5 Performed By: #### L IVER #### [facility] [address] [place] [address] Dr. Charlotte Argueta CBC AUTO DIFFon 01-24-2022 BASO # 0.0 103/ul Normal 0.0-0.1 [facility] Comment on above: Performed By: #### C MREP #### [facility] [address] [place] [address] Dr. Charlotte Argueta Basophils/100 WBC (Bld) 0.5 % Normal 0.2-2.0 [facility] Comment on above: Performed By: #### C MREP #### [facility] [address] [place] [address] Dr. Charlotte Argueta EO # 0.6 103/ul Normal 0.0-0.7 [facility] Comment on above: Performed By: #### C MREP #### [facility] [address] [place] [address] Dr. Charlotte Argueta Eosinophils/100 WBC (Bld) 8.4 % Critically high 0.9-7.0 [facility] Comment on above: Performed By: #### C MREP #### [facility] [address] [place] [address] Dr. Charlotte Argueta Erythrocyte distribution width (RBC) [Ratio] 14.3 % Normal 11.0-15.0 [facility] Comment on above: Performed By: #### C MREP #### [facility] [address] [place] [address] Dr. Charlotte Argueta Hematocrit (Bld) [Volume fraction] 30.8 % Critically low 36.0-48.0 [facility] Comment on above: Performed By: #### C MREP #### [facility] [address] [place] [address] Dr. Charlotte Argueta Hemoglobin (Bld) [Mass/Vol] 9.8 g/dL Critically low 12.0-16.0 [facility] Comment on above: Performed By: #### C MREP #### [facility] [address] [place] [address] Dr. Charlotte Argueta IG # 0.03 10e3/ul Normal 0.00-0.03 [facility] Comment on above: Performed By: #### C MREP #### [facility] [address] [place] [address] Dr. Charlotte Argueta IG % 0.5 % Normal 0.0-0.5 [facility] Comment on above: Performed By: #### C MREP #### [facility] [address] [place] [address] Dr. Charlotte Argueta LYMPH # 2.2 103/ul Normal 1.2-3.8 [facility] Comment on above: Performed By: #### C MREP #### [facility] [address] [place] [address] Dr. Charlotte Argueta Lymphocytes/100 WBC (Bld) 33.9 % Normal 20.5-60.0 [facility] Comment on above: Performed By: #### C MREP #### [facility] [address] [place] [address] Dr. Charlotte Argueta MANUAL DIFF REQ NO Normal [facility] Comment on above: Performed By: #### C MREP #### [facility] [address] [place] [address] Dr. Charlotte Argueta MCH (RBC) [Entitic mass] 30.4 pg Normal 26.7-34.0 [facility] Comment on above: Performed By: #### C MREP #### [facility] [address] [place] [address] Dr. Charlotte Argueta MCHC (RBC) [Mass/Vol] 31.8 g/dL Normal 29.9-35.2 [facility] Comment on above: Performed By: #### C MREP #### [facility] [address] [place] [address] Dr. Charlotte Argueta MCV (RBC) [Entitic vol] 95.7 fL Normal 81.0-99.0 [facility] Comment on above: Performed By: #### C MREP #### [facility] [address] [place] [address] Dr. Charlotte Argueta MONO # 0.7 103/ul Normal 0.3-0.8 [facility] Comment on above: Performed By: #### C MREP #### [facility] [address] [place] [address] Dr. Charlotte Argueta Monocytes/100 WBC (Bld) 11.1 % Normal 1.7-12.0 [facility] Comment on above: Performed By: #### C MREP #### [facility] [address] [place] [address] Dr. Charlotte Argueta NEUT # 3.0 103/ul Normal 1.4-6.5 [facility] Comment on above: Performed By: #### C MREP #### [facility] [address] [place] [address] Dr. Charlotte Argueta Neutrophils/100 WBC (Bld) 45.6 % Normal 43.0-75.0 [facility] Comment on above: Performed By: #### C MREP #### [facility] [address] [place] [address] Dr. Charlotte Argueta Platelet mean volume (Bld) [Entitic vol] 9.6 fL Normal 9.5-13.5 [facility] Comment on above: Performed By: #### C MREP #### [facility] [address] [place] [address] Dr. Charlotte Argueta PLT 369 103/ul Normal 150-450 [facility] Comment on above: Performed By: #### C MREP #### [facility] [address] [place] [address] Dr. Charlotte Argueta RBC 3.22 106/ul Critically low 4.20-5.[address] [facility] Comment on above: Performed By: #### C MREP #### [facility] [address] [place] [address] Dr. Charlotte Argueta WBC 6.6 103/ul Normal 4.0-11.0 [facility] Comment on above: Performed By: #### C MREP #### [facility] [address] [place] [address] Dr. Charlotte Argueta PROF CHEM 8 (BAS METB)on Anion gap [Moles/Vol] 10.9 mmol/L Normal [facility] Comment on above: Performed By: #### C MP #### [facility] [address] [address] [address] Charlotte Argueta Calcium [Mass/Vol] 8.6 mg/dL Normal 8.5-10.1 [facility] Comment on above: Performed By: #### C MP #### [facility] [address] [address] [address] Charlotte Argueta Chloride [Moles/Vol] 104 mmol/L Normal 98-107 [facility] Comment on above: Performed By: #### C MP #### [facility] [address] [address] [address] Charlotte Argueta CO2 [Moles/Vol] 26.2 mmol/L Normal 21.0-32.0 [facility] Comment on above: Performed By: #### C MP #### [facility] [address] [address] [address] Charlotte Argueta Creatinine [Mass/Vol] 1.49 mg/dL Critically high 0.55-1.02 [facility] Comment on above: Performed By: #### C MP #### [facility] [address] [place] [address] Dr. Charlotte Argueta EGFR-AF BAHAMIAN 41 mL/min/1.73m2 Critically low >=60 [facility] Comment on above: Performed By: #### C MP #### [facility] [address] [address] [address] Charlotte Argueta EGFR-NON AF BAHAMIAN 34 mL/min/1.73m2 Critically low >=60 [facility] Comment on above: Performed By: #### C MP #### [facility] [address] [address] [address] Charlotte Argueta Glucose [Mass/Vol] 92 mg/dL Normal 74-106 [facility] Comment on above: Performed By: #### C MP #### [facility] [address] [address] [address] Charlotte Argueta Potassium [Moles/Vol] 4.1 mmol/L Normal 3.5-5.1 [facility] Comment on above: Performed By: #### C MP #### [facility] [address] [place] [address] Dr. Charlotte Argueta Sodium [Moles/Vol] 137 mmol/L Normal 136-145 [facility] Comment on above: Performed By: #### C MP #### [facility] [address] [place] [address] Dr. Charlotte Argueta Urea nitrogen [Mass/Vol] 35.0 mg/dL Critically high 7.0-18.0 [facility] Comment on above: Performed By: #### C MP #### [facility] [address] [place] [address] Dr. Charltote Argueta Urea nitrogen/Creatinine [Mass ratio] 23.5 mg/mg Normal [facility] Comment on above: Performed By: #### C MP #### [facility] [address] [place] [address] Dr. Charlotte Argueta CBC AUTO DIFFon 01-23-2022 BASO # 0.0 103/ul Normal 0.0-0.1 [facility] Comment on above: Performed By: #### B LDCX1 #### [facility] [address] [place] [address] Dr. Charlotte Argueta Basophils/100 WBC (Bld) 0.6 % Normal 0.2-2.0 [facility] Comment on above: Performed By: #### B LDCX1 #### [facility] [address] [place] [address] Dr. Charlotte Argueta EO # 0.5 103/ul Normal 0.0-0.7 [facility] Comment on above: Performed By: #### B LDCX1 #### [facility] [address] [place] [address] Dr. Charlotte Argueta Eosinophils/100 WBC (Bld) 8.5 % Critically high 0.9-7.0 [facility] Comment on above: Performed By: #### B LDCX1 #### [facility] [address] [place] [address] Dr. Charlotte Argueta Erythrocyte distribution width (RBC) [Ratio] 14.4 % Normal 11.0-15.0 [facility] Comment on above: Performed By: #### B LDCX1 #### [facility] [address] [place] [address] Dr. Charlotte Argueta Hematocrit (Bld) [Volume fraction] 29.0 % Critically low 36.0-48.0 [facility] Comment on above: Performed By: #### B LDCX1 #### [facility] [address] [place] [address] Dr. Charlotte Argueta Hemoglobin (Bld) [Mass/Vol] 9.2 g/dL Critically low 12.0-16.0 [facility] Comment on above: Performed By: #### B LDCX1 #### [facility] [address] [place] [address] Dr. Charlotte Argueta IG # 0.03 10e3/ul Normal 0.00-0.03 [facility] Comment on above: Performed By: #### B LDCX1 #### [facility] [address] [place] [address] Dr. Charlotte Argueta IG % 0.5 % Normal 0.0-0.5 [facility] Comment on above: Performed By: #### B LDCX1 #### [facility] [address] [place] [address] Dr. Charlotte Argueta LYMPH # 2.0 103/ul Normal 1.2-3.8 [facility] Comment on above: Performed By: #### B LDCX1 #### [facility] [address] [place] [address] Dr. Charlotte Argueta Lymphocytes/100 WBC (Bld) 32.6 % Normal 20.5-60.0 [facility] Comment on above: Performed By: #### B LDCX1 #### [facility] [address] [place] [address] Dr. Charlotte Argueta MANUAL DIFF REQ NO Normal [facility] Comment on above: Performed By: #### B LDCX1 #### [facility] [address] [place] [address] Dr. Charlotte Argueta MCH (RBC) [Entitic mass] 30.1 pg Normal 26.7-34.0 [facility] Comment on above: Performed By: #### B LDCX1 #### [facility] [address] [place] [address] Dr. Charlotte Argueta MCHC (RBC) [Mass/Vol] 31.7 g/dL Normal 29.9-35.2 [facility] Comment on above: Performed By: #### B LDCX1 #### [facility] [address] [place] [address] Dr. Charlotte Argueta MCV (RBC) [Entitic vol] 94.8 fL Normal 81.0-99.0 [facility] Comment on above: Performed By: #### B LDCX1 #### [facility] [address] [place] [address] Dr. Charlotte Argueta MONO # 0.6 103/ul Normal 0.3-0.8 [facility] Comment on above: Performed By: #### B LDCX1 #### [facility] [address] [place] [address] Dr. Charlotte Argueta Monocytes/100 WBC (Bld) 10.0 % Normal 1.7-12.0 [facility] Comment on above: Performed By: #### B LDCX1 #### [facility] [address] [place] [address] Dr. Charlotte Argueta NEUT # 3.0 103/ul Normal 1.4-6.5 [facility] Comment on above: Performed By: #### B LDCX1 #### [facility] [address] [place] [address] Dr. Charlotte Argueta Neutrophils/100 WBC (Bld) 47.8 % Normal 43.0-75.0 [facility] Comment on above: Performed By: #### B LDCX1 #### [facility] [address] [place] [address] Dr. Charlotte Argueta Platelet mean volume (Bld) [Entitic vol] 9.8 fL Normal 9.5-13.5 [facility] Comment on above: Performed By: #### B LDCX1 #### [facility] [address] [address] [address] Charlotte Argueta PLT 386 103/ul Normal 150-450 [facility] Comment on above: Performed By: #### B LDCX1 #### [facility] [address] [address] [address] Charlotte Argueta RBC 3.06 106/ul Critically low 4.20-5.40 [facility] Comment on above: Performed By: #### B LDCX1 #### [facility] [address] [address] [address] Charlotte Argueta WBC 6.2 103/ul Normal 4.0-11.0 [facility] Comment on above: Performed By: #### B LDCX1 #### [facility] [address] [place] [address] Dr. Charlotte Argueta PROF CHEM 8 (BAS METB)on Anion gap [Moles/Vol] 11.1 mmol/L Normal [facility] Comment on above: Performed By: #### C MP #### [facility] [address] [place] [address] Dr. Charlotte Argueta Calcium [Mass/Vol] 8.5 mg/dL Normal 8.5-10.1 [facility] Comment on above: Performed By: #### C MP #### [facility] [address] [place] [address] Dr. Charlotte Argueta Chloride [Moles/Vol] 107 mmol/L Normal 98-107 [facility] Comment on above: Performed By: #### C MP #### [facility] [address] [place] [address] Dr. Charlotte Argueta CO2 [Moles/Vol] 26.9 mmol/L Normal 21.0-32.0 [facility] Comment on above: Performed By: #### C MP #### [facility] [address] [place] [address] Dr. Charlotte Argueta Creatinine [Mass/Vol] 1.53 mg/dL Critically high 0.55-1.02 [facility] Comment on above: Performed By: #### C MP #### [facility] [address] [address] [address] Charlotte Argueta EGFR-AF BAHAMIAN 40 mL/min/1.73m2 Critically low >=60 [facility] Comment on above: Performed By: #### C MP #### [facility] [address] [address] [address] Charlotte Argueta EGFR-NON AF BAHAMIAN 33 mL/min/1.73m2 Critically low >=60 [facility] Comment on above: Performed By: #### C MP #### [facility] [address] [address] [address] Charlotte Argueta Glucose [Mass/Vol] 93 mg/dL Normal 74-106 [facility] Comment on above: Performed By: #### C MP #### [facility] [address] [address] [address] Charlotte Argueta Potassium [Moles/Vol] 4.0 mmol/L Normal 3.5-5.1 [facility] Comment on above: Performed By: #### C MP #### [facility] [address] [address] [address] Charlotte Argueta Sodium [Moles/Vol] 141 mmol/L Normal 136-145 [facility] Comment on above: Performed By: #### C MP #### [facility] [address] [address] [address] Charlotte Argueta Urea nitrogen [Mass/Vol] 33.0 mg/dL Critically high 7.0-18.0 [facility] Comment on above: Performed By: #### C MP #### [facility] [address] [address] [address] Charlotte Argueta Urea nitrogen/Creatinine [Mass ratio] 21.6 mg/mg Normal [facility] Comment on above: Performed By: #### C MP #### [facility] [address] [address] [address] Charlotte Argueta CBC AUTO DIFFon 01-22-2022 BASO # 0.0 103/ul Normal 0.0-0.1 [facility] Comment on above: Performed By: #### B LDCX1 #### [facility] [address] [place] [address] Dr. Charlotte Argueta Basophils/100 WBC (Bld) 0.6 % Normal 0.2-2.0 [facility] Comment on above: Performed By: #### B LDCX1 #### [facility] [address] [place] [address] Dr. Charlotte Argueta EO # 0.6 103/ul Normal 0.0-0.7 [facility] Comment on above: Performed By: #### B LDCX1 #### [facility] [address] [place] [address] Dr. Charlotte Argueta Eosinophils/100 WBC (Bld) 8.8 % Critically high 0.9-7.0 [facility] Comment on above: Performed By: #### B LDCX1 #### [facility] [address] [place] [address] Dr. Charlotte Argueta Erythrocyte distribution width (RBC) [Ratio] 14.3 % Normal 11.0-15.0 [facility] Comment on above: Performed By: #### B LDCX1 #### [facility] [address] [place] [address] Dr. Charlotte Argueta Hematocrit (Bld) [Volume fraction] 29.2 % Critically low 36.0-48.0 [facility] Comment on above: Performed By: #### B LDCX1 #### [facility] [address] [place] [address] Dr. Charlotte Argueta Hemoglobin (Bld) [Mass/Vol] 9.2 g/dL Critically low 12.0-16.0 [facility] Comment on above: Performed By: #### B LDCX1 #### [facility] [address] [place] [address] Dr. Charlotte Argueta IG # 0.03 10e3/ul Normal 0.00-0.03 [facility] Comment on above: Performed By: #### B LDCX1 #### [facility] [address] [place] [address] Dr. Charlotte Argueta IG % 0.5 % Normal 0.0-0.5 [facility] Comment on above: Performed By: #### B LDCX1 #### [facility] [address] [address] [address] Charlotte Argueta LYMPH # 1.8 103/ul Normal 1.2-3.8 [facility] Comment on above: Performed By: #### B LDCX1 #### [facility] [address] [place] [address] Dr. Charlotte Argueta Lymphocytes/100 WBC (Bld) 27.5 % Normal 20.5-60.0 [facility] Comment on above: Performed By: #### B LDCX1 #### [facility] [address] [place] [address] Dr. Charlotte Argueta MANUAL DIFF REQ NO Normal [facility] Comment on above: Performed By: #### B LDCX1 #### [facility] [address] [place] [address] Dr. Charlotte Argueta MCH (RBC) [Entitic mass] 30.1 pg Normal 26.7-34.0 [facility] Comment on above: Performed By: #### B LDCX1 #### [facility] [address] [place] [address] Dr. Charlotte Argueta MCHC (RBC) [Mass/Vol] 31.5 g/dL Normal 29.9-35.2 [facility] Comment on above: Performed By: #### B LDCX1 #### [facility] [address] [place] [address] Dr. Charlotte Argueta MCV (RBC) [Entitic vol] 95.4 fL Normal 81.0-99.0 [facility] Comment on above: Performed By: #### B LDCX1 #### [facility] [address] [place] [address] Dr. Charlotte Argueta MONO # 0.6 103/ul Normal 0.3-0.8 [facility] Comment on above: Performed By: #### B LDCX1 #### [facility] [address] [place] [address] Dr. Charlotte Argueta Monocytes/100 WBC (Bld) 9.7 % Normal 1.7-12.0 [facility] Comment on above: Performed By: #### B LDCX1 #### [facility] [address] [address] [address] Charlotte Argueta NEUT # 3.5 103/ul Normal 1.4-6.5 [facility] Comment on above: Performed By: #### B LDCX1 #### [facility] [address] [place] [address] Dr. Charlotte Argueta Neutrophils/100 WBC (Bld) 52.9 % Normal 43.0-75.0 [facility] Comment on above: Performed By: #### B LDCX1 #### [facility] [address] [place] [address] Dr. Charlotte Argueta Platelet mean volume (Bld) [Entitic vol] 10.0 fL Normal 9.5-13.5 [facility] Comment on above: Performed By: #### B LDCX1 #### [facility] [address] [place] [address] Dr. Charlotte Argueta PLT 380 103/ul Normal 150-450 [facility] Comment on above: Performed By: #### B LDCX1 #### [facility] [address] [place] [address] Dr. Charlotte Argueta RBC 3.06 106/ul Critically low 4.20-5.40 [facility] Comment on above: Performed By: #### B LDCX1 #### [facility] [address] [place] [address] Dr. Charlotte Argueat WBC 6.6 103/ul Normal 4.0-11.0 [facility] Comment on above: Performed By: #### B LDCX1 #### [facility] [address] [place] [address] Dr. Charlotte Argueta BNPon 01-21-2022 Natriuretic peptide B (Bld) [Mass/Vol] 1068.0 pg/mL Normal <=1,800.0 [facility] Comment on above: Performed By: #### I NFLUAB #### [facility] [address] [place] [address] Dr. Charlotte Argueta CARDIAC DRE 3-6on 2 CK [Catalytic activity/Vol] 80 U/L Normal 26-192 [facility] Comment on above: Result Comment: SPEC IMEN SLIGHTLY HEMOLYZED MAY AFFECT CK Performed By: #### B LDCX1 #### [facility] [address] [place] [address] Dr. Charlotte Argueta CK.MB [Mass/Vol] 0.55 ng/mL Normal <=3.60 [facility] Comment on above: Performed By: #### B LDCX1 #### [facility] [address] [place] [address] Dr. Charlotte Argueta HSTROP 7.8 pg/mL Normal 4.0-51.3 [facility] Comment on above: Result Comment: CUT- OFF POINTS HAVE BEEN ESTABLISHED BASED ON THE FOURTH UNIVERSAL DEFINITIONS OF MYOCARDIAL INFARCTION. THE UPPER REFERENCE LIMIT (URL) OF TROPONIN, DEFINED THE 99TH PERCENTILE OF cTnI DISTRIBUTION IN A REFERENCE POPULATION, HAS BEEN CONFIRMED THE DECISION THRESHOLD FOR [place] DIAGNOSIS. Performed By: #### B LDCX1 #### [facility] [address] [place] [address] Dr. Charlotte Argueta CK [Catalytic activity/Vol] 45 U/L Normal 26-192 [facility] Comment on above: Performed By: #### C MREP #### [facility] [address] [place] [address] Dr. Charlotte Argueta CK.MB [Mass/Vol] 0.64 ng/mL Normal <=3.60 [facility] Comment on above: Performed By: #### C MREP #### [facility] [address] [place] [address] Dr. Charlotte Argueta HSTROP 9.2 pg/mL Normal 4.0-51.3 [facility] Comment on above: Result Comment: CUT- OFF POINTS HAVE BEEN ESTABLISHED BASED ON THE FOURTH UNIVERSAL DEFINITIONS OF MYOCARDIAL INFARCTION. THE UPPER REFERENCE LIMIT (URL) OF TROPONIN, DEFINED THE 99TH PERCENTILE OF cTnI DISTRIBUTION IN A REFERENCE POPULATION, HAS BEEN CONFIRMED THE DECISION THRESHOLD FOR [place] DIAGNOSIS. Performed By: #### C MREP #### [facility] [address] [place] [address] Dr. Charlotte Argueta CARDIAC DRE ADMITon 022 CK [Catalytic activity/Vol] 41 U/L Normal 26-192 [facility] Comment on above: Performed By: #### T MARY, FT3 #### [facility] [address] [place] [address] Dr. Charlotte Argueta CK.MB [Mass/Vol] ng/mL Normal <=3.60 [facility] Comment on above: Performed By: #### T MARY, FT3 #### [facility] [address] [place] [address] Dr. Charlotte Argueta HSTROP 10.1 pg/mL Normal 4.0-51.3 [facility] Comment on above: Result Comment: CUT- OFF POINTS HAVE BEEN ESTABLISHED BASED ON THE FOURTH UNIVERSAL DEFINITIONS OF MYOCARDIAL INFARCTION. THE UPPER REFERENCE LIMIT (URL) OF TROPONIN, DEFINED THE 99TH PERCENTILE OF cTnI DISTRIBUTION IN A REFERENCE POPULATION, HAS BEEN CONFIRMED THE DECISION THRESHOLD FOR [place] DIAGNOSIS. Performed By: #### T MARY, FT3 #### [facility] [address] [place] [address] Dr. Charlotte Argueta RICH 50 ng/mL Normal 9-82 [facility] Comment on above: Performed By: #### T MARY, FT3 #### [facility] [address] [place] [address] Dr. Charlotte Argueta CBC AUTO DIFFon 01-21-2022 BASO # 0.1 103/ul Normal 0.0-0.1 [facility] Comment on above: Performed By: #### Andi HERNANDEZ, FT3 #### [facility] [address] [place] [address] Dr. Charlotte Argueta Basophils/100 WBC (Bld) 0.8 % Normal 0.2-2.0 [facility] Comment on above: Performed By: #### T MARY, FT3 #### [facility] [address] [place] [address] Dr. Charlotte Argueta EO # 0.5 103/ul Normal 0.0-0.7 [facility] Comment on above: Performed By: #### T MARY, FT3 #### [facility] [address] [place] [address] Dr. Charlotte Argueta Eosinophils/100 WBC (Bld) 8.5 % Critically high 0.9-7.0 [facility] Comment on above: Performed By: #### T SH, FT3 #### [facility] [address] [place] [address] Dr. Charlotte Argueta Erythrocyte distribution width (RBC) [Ratio] 13.9 % Normal 11.0-15.0 [facility] Comment on above: Performed By: #### T SH, FT3 #### [facility] [address] [place] [address] Dr. Charlotte Argueta Hematocrit (Bld) [Volume fraction] 33.9 % Critically low 36.0-48.0 [facility] Comment on above: Performed By: #### T MARY, FT3 #### [facility] [address] [place] [address] Dr. Charlotte Argueta Hemoglobin (Bld) [Mass/Vol] 10.7 g/dL Critically low 12.0-16.0 [facility] Comment on above: Performed By: #### T SH, FT3 #### [facility] [address] [place] [address] Dr. Charlotte Argueta IG # 0.03 10e3/ul Normal 0.00-0.03 [facility] Comment on above: Performed By: #### T MARY, FT3 #### [facility] [address] [place] [address] Dr. Charlotte Argueta IG % 0.5 % Normal 0.0-0.5 [facility] Comment on above: Performed By: #### T SH, FT3 #### [facility] [address] [place] [address] Dr. Charlotte Argueta LYMPH # 1.6 103/ul Normal 1.2-3.8 [facility] Comment on above: Performed By: #### T SH, FT3 #### [facility] [address] [place] [address] Dr. Charlotte Argueta Lymphocytes/100 WBC (Bld) 25.4 % Normal 20.5-60.0 [facility] Comment on above: Performed By: #### T SH, FT3 #### [facility] [address] [place] [address] Dr. Charlotte Argueta MANUAL DIFF REQ NO Normal [facility] Comment on above: Performed By: #### T SH, FT3 #### [facility] [address] [place] [address] Dr. Charlotte Argueta MCH (RBC) [Entitic mass] 30.1 pg Normal 26.7-34.0 [facility] Comment on above: Performed By: #### T SH, FT3 #### [facility] [address] [place] [address] Dr. Charlotte Argueta MCHC (RBC) [Mass/Vol] 31.6 g/dL Normal 29.9-35.2 [facility] Comment on above: Performed By: #### T SH, FT3 #### [facility] [address] [place] [address] Dr. Charlotte Argueta MCV (RBC) [Entitic vol] 95.2 fL Normal 81.0-99.0 [facility] Comment on above: Performed By: #### T , FT3 #### [facility] [address] [place] [address] Dr. Charlotte Argueta MONO # 0.6 103/ul Normal 0.3-0.8 [facility] Comment on above: Performed By: #### T , FT3 #### [facility] [address] [place] [address] Dr. Charlotte Argueta Monocytes/100 WBC (Bld) 9.6 % Normal 1.7-12.0 [facility] Comment on above: Performed By: #### T , FT3 #### [facility] [address] [place] [address] Dr. Charlotte Argueta NEUT # 3.5 103/ul Normal 1.4-6.5 [facility] Comment on above: Performed By: #### T SH, FT3 #### [facility] [address] [place] [address] Dr. Charlotte Argueta Neutrophils/100 WBC (Bld) 55.2 % Normal 43.0-75.0 [facility] Comment on above: Performed By: #### T SH, FT3 #### [facility] [address] [address] [address] Charlotte Argueta Platelet mean volume (Bld) [Entitic vol] 9.5 fL Normal 9.5-13.5 [facility] Comment on above: Performed By: #### T SH, FT3 #### [facility] [address] [address] [address] Charlotte Argueta PLT 408 103/ul Normal 150-450 [facility] Comment on above: Performed By: #### T SH, FT3 #### [facility] [address] [address] [address] Charlotte Argueta RBC 3.56 106/ul Critically low 4.20-5.[address] [facility] Comment on above: Performed By: #### T SH, FT3 #### [facility] [address] [address] [address] Charlotte Argueta WBC 6.3 103/ul Normal 4.0-11.0 [facility] Comment on above: Performed By: #### T SH, FT3 #### [facility] [address] [address] [address] Charlotte Argu[facility] SARS-CoV-2 (COVID-19) RNA DANNY+probe Ql (Unsp spec) Not detected Normal NOT DETECTED [facility] Comment on above: Result Comment: When diagnostic testing is negative, the possibility of a false negative should be considered in the context of a patient's recent exposures and the presence of clinical signs and symptoms consistent with SARS-CoV-2. This test is not yet approved or cleared by the [place] FDA. When there are no FDA-approved or cleared tests available, and other criteria are met, FDA can make tests available under an emergency access mechanism called an Emergency Use Authorization (EUA). The EUA for this test is supported by the [place] of Health and Human Service's declaration that circumstances exist to justify the emergency use of in vitro diagnostics for the detection and/or diagnosis of the virus that causes COVID-19. This EUA will remain in effect for the duration of the COVID-19 declaration justifying emergency of IVDs, unless it is terminated or revoked by the FDA (after which the test may no longer be used). Performed By: #### T SH, FT3 #### [facility] [address] [place] [address] Dr. Charlotte Argueta FREE T3on 01-21-2022 FREE T3 1.38 pg/mlL Critically low 2.18-3.98 [facility] Comment on above: Performed By: #### T SH, FT3 #### [facility] [address] [place] [address] Dr. Charlotte Argueta FREE T4on 01-21-2022 Free T4 [Mass/Vol] 1.17 ng/dL Normal 0.76-1.46 [facility] Comment on above: Performed By: #### I NFLUAB #### [facility] [address] [place] [address] Dr. Charlotte Argueta IRON AND TIBCon 01-21-2022 % SATURATION 21.2 % Normal [facility] Comment on above: Performed By: #### C MREP #### [facility] [address] [place] [address] Dr. Charlotte Argueta Iron [Mass/Vol] 72.0 ug/dL Normal 50.0-170.0 [facility] Comment on above: Performed By: #### C MREP #### [facility] [address] [place] [address] Dr. Charlotte Argueta TIBC DIRECT 340.0 ug/dL Normal 250.0-450.0 [facility] Comment on above: Performed By: #### C MREP #### [facility] [address] [place] [address] Dr. Charlotte Argueta LIVER PROFILEon 01-21-2022 Albumin [Mass/Vol] 3.3 g/dL Critically low 3.4-5.0 [facility] Comment on above: Performed By: #### L IVER #### [facility] [address] [place] [address] Dr. Charlotte Argueta Albumin/Globulin [Mass ratio] 0.9 {ratio} Normal [facility] Comment on above: Performed By: #### L IVER #### [facility] [address] [address] [address] Charlotte Argueta ALP [Catalytic activity/Vol] 71 U/L Normal 46-116 [facility] Comment on above: Performed By: #### L IVER #### [facility] [address] [address] [address] Charlotte Argueta ALT [Catalytic activity/Vol] 23 U/L Normal 14-59 [facility] Comment on above: Performed By: #### L IVER #### [facility] [address] [address] [address] Charlotte Argueta AST [Catalytic activity/Vol] 23 U/L Normal 15-37 [facility] Comment on above: Performed By: #### L IVER #### [facility] [address] [address] [address] Charlotte Argueta BILI, CONJUGATED 0.1 mg/dL Normal 0.0-0.2 [facility] Comment on above: Performed By: #### L IVER #### [facility] [address] [address] [address] Charlotte Argueta Bilirubin [Mass/Vol] 0.3 mg/dL Normal 0.2-1.0 [facility] Comment on above: Performed By: #### L IVER #### [facility] [address] [address] [address] Charlotte Argueta Globulin (S) [Mass/Vol] 3.6 g/dL Normal [facility] Comment on above: Performed By: #### L IVER #### [facility] [address] [address] [address] Charlotte Argueta Protein [Mass/Vol] 6.9 g/dL Normal 6.4-8.2 [facility] Comment on above: Performed By: #### L IVER #### [facility] [address] [address] [address] Charlotte Argueta PROF CHEM 8 (BAS METB)on Anion gap [Moles/Vol] 15.1 mmol/L Normal [facility] Comment on above: Performed By: #### T SH, FT3 #### [facility] [address] [place] [address] Dr. Charlotte Argueta Calcium [Mass/Vol] 8.7 mg/dL Normal 8.5-10.1 [facility] Comment on above: Performed By: #### T SH, FT3 #### [facility] [address] [place] [address] Dr. Charlotte Argueta Chloride [Moles/Vol] 100 mmol/L Normal 98-107 [facility] Comment on above: Performed By: #### T SH, FT3 #### [facility] [address] [place] [address] Dr. Charlotte Argueta CO2 [Moles/Vol] 25.2 mmol/L Normal 21.0-32.0 [facility] Comment on above: Performed By: #### T SH, FT3 #### [facility] [address] [place] [address] Dr. Charlotte Argueta Creatinine [Mass/Vol] 1.60 mg/dL Critically high 0.55-1.02 [facility] Comment on above: Performed By: #### T SH, FT3 #### [facility] [address] [place] [address] Dr. Charlotte Argueta EGFR-AF BAHAMIAN 38 mL/min/1.73m2 Critically low >=60 [facility] Comment on above: Performed By: #### T SH, FT3 #### [facility] [address] [place] [address] Dr. Charlotte Argueta EGFR-NON AF BAHAMIAN 31 mL/min/1.73m2 Critically low >=60 [facility] Comment on above: Performed By: #### T SH, FT3 #### [facility] [address] [place] [address] Dr. Charlotte Argueta Glucose [Mass/Vol] 105 mg/dL Normal 74-106 [facility] Comment on above: Performed By: #### T SH, FT3 #### [facility] [address] [place] [address] Dr. Charlotte Argueta Potassium [Moles/Vol] 4.3 mmol/L Normal 3.5-5.1 [facility] Comment on above: Performed By: #### T MARY, FT3 #### [facility] [address] [place] [address] Dr. Charlotte Argueta Sodium [Moles/Vol] 136 mmol/L Normal 136-145 [facility] Comment on above: Performed By: #### T MARY, FT3 #### [facility] [address] [place] [address] Dr. Charlotte Argueta Urea nitrogen [Mass/Vol] 36.0 mg/dL Critically high 7.0-18.0 [facility] Comment on above: Performed By: #### T MARY, FT3 #### [facility] [address] [place] [address] Dr. Charlotte Argueta Urea nitrogen/Creatinine [Mass ratio] 22.5 mg/mg Normal [facility] Comment on above: Performed By: #### T MARY, FT3 #### [facility] [address] [place] [address] Dr. Charlotte Argueta PROTIMEon 01-21-2022 INR Coag (PPP) [Relative time] {INR} Normal [facility] Comment on above: Performed By: #### T MARY, FT3 #### [facility] [address] [place] [address] Dr. Charlotte Argueta INR GUIDELINES SEE BELOW Normal [facility] Comment on above: Result Comment: CORI RED INR: 2.0 - 3.0 CONDITIONS NOT LISTED BELOW 2.5 - 3.5 FOR PROSTHETIC HEART VALVE REPLACEMENT 2.5 - 3.5 RECURRENT THROMBOSIS Performed By: #### T MARY, FT3 #### [facility] [address] [place] [address] Dr. Charlotte Argueta PT Coag (PPP) [Time] 9.6 s Normal 9.0-11.6 [facility] Comment on above: Performed By: #### T MARY, FT3 #### [facility] [address] [place] [address] Dr. Charlotte Argueta PTTon 05-21-2022 aPTT Coag (Bld) [Time] 23.1 s Normal 22.3-36.2 [facility] Comment on above: Performed By: #### L IVER #### [facility] [address] [place] [address] Dr. Charlotte Argueta TSHon 01-21-2022 TSH 6.405 uIU/mL Critically high 0.358-3.740 [facility] Comment on above: Performed By: #### T SH, FT3 #### [facility] [address] [place] [address] Dr. Charlotte Argueta TSH RANGE SEE BELOW Normal [facility] Comment on above: Result Comment: <0.3 4 UIU/ml HYPERTHYROID 0.34-5.60 UIU/ml EUTHYROID >5.60 UIU/ml HYPOTHYROID Performed By: #### T SH, FT3 #### [facility] [address] [place] [address] Dr. Charlotte Argueta UA (CLEAN/CATCH) SERVER PROGRAMMER/MICRO I F IND.on 01-21-2022 Bilirubin Ql (U) Negative Normal NEGATIVE [facility] Comment on above: Performed By: #### C MP #### [facility] [address] [place] [address] Dr. Charlotte Argueta Clarity (U) CLEAR Normal CLEAR [facility] Comment on above: Performed By: #### C MP #### [facility] [address] [place] [address] Dr. Charlotte Argueta Color (U) LT. YELLOW Normal YELLOW [facility] Comment on above: Performed By: #### C MP #### [facility] [address] [place] [address] Dr. Charlotte Argueta Glucose Ql (U) Negative Normal NEGATIVE [facility] Comment on above: Performed By: #### C MP #### [facility] [address] [place] [address] Dr. Charlotte Argueta Hemoglobin Ql (U) Negative Normal NEGATIVE [facility] Comment on above: Performed By: #### C MP #### [facility] [address] [place] [address] Dr. Charlotte Argueta Ketones Ql (U) Negative Normal NEGATIVE [facility] Comment on above: Performed By: #### C MP #### [facility] [address] [place] [address] Dr. Charlotte Argueta LEUKOCYTES Negative Normal NEGATIVE [facility] Comment on above: Performed By: #### C MP #### [facility] [address] [place] [address] Dr. Charlotte Argueta Nitrite Ql (U) Negative Normal NEGATIVE [facility] Comment on above: Performed By: #### C MP #### [facility] [address] [place] [address] Dr. Charlotte Argueta pH (U) 6.5 [pH] Normal 5-9 [facility] Comment on above: Performed By: #### C MP #### [facility] [address] [place] [address] Dr. Charlotte Argueta SPEC GRAVITY <=1.005 Abnormal 1.005-<=1.[address] [facility] Comment on above: Performed By: #### C MP #### [facility] [address] [place] [address] Dr. Charlotte Argueta UA PROTEIN Negative Normal NEGATIVE/ TRACE [facility] Comment on above: Performed By: #### C MP #### [facility] [address] [place] [address] Dr. Charlotte Argueta UR MICRO IND NOT INDICATED Normal [facility] Comment on above: Performed By: #### C MP #### [facility] [address] [place] [address] Dr. Charlotte Argueta Urobilinogen Qn (U) 0.2 {Kathia'U}/dL Normal 0.2 - 1. 0 [facility] Comment on above: Performed By: #### C MP #### [facility] [address] [place] [address] Dr. Charlotte Argueta VIT B12 AND FOLATEon 022 Cobalamin (Vitamin B12) [Mass/Vol] 163.0 pg/mL Critically low 193.0-986.0 [facility] Comment on above: Performed By: #### C MREP #### [facility] [address] [address] [address] Charlotte Argueta FOLATE 19.30 ng/mL Normal 8.60-58.90 [facility] Comment on above: Performed By: #### C MREP #### [facility] [address] [place], [place] [address] Dr. Charlotte Argueta VITAMIN D 25 OHon 01-21-2022 VIT D 25-OH 24.9 ng/mL Normal [facility] Comment on above: Performed By: #### I NFLUAB #### [facility] [address] [place], [place] [address] Dr. Charlotte Argueta VIT D RANGES SEE BELOW Normal [facility] Comment on above: Result Comment: <20 ng/mL Vit D deficient 20 - <30 ng/mL Vit D insufficient 30 - 100 ng/mL Vit D sufficient >100 ng/mL Potential Toxicity Performed By: #### I NFLUAB #### [facility] [address] [address] [address] Charlotte Argueta XR CHEST 1 Von 01-21-2022 XR CHEST 1 V EXAM: XR CHEST 1 V 01/21/2022 5:20 AM EDT OH001 CLINICAL STATEMENT: CHEST PAIN, UNSPECIFIED COMPARISON: 07/19/2021 TECHNIQUE: Single AP radiograph of the chest is submitted. FINDINGS: There is no acute airspace disease. The cardiac silhouette is normal. The costophrenic recesses are sharp. No pneumothorax. The bony elements are unremarkable. IMPRESSION: No acute cardiopulmonary process. FOLLOW-UP: Follow-up as clinically indicated. Electronically authenticated by: BETH SAID Date: 2022-01-21 06:32 Normal [facility] XR hip RT min 2V(w/wo pelvis )*on 03-30-2021 XR hip RT min 2V(w/wo pelvis)* [facility] [place] [address] [place], [place] [id number] XRay Report Signed Patient: Emy Cheatham MR#: [id number] : 1945 Acct:[id number] Age/Sex: 75 / F ADM Date: 03/30/21 Loc: SOXD Room: Type: REG CLI Attending Dr: Giancarlo Prater MD Ordering Provider: Giancarlo Prater MD Date of Service: 03/30/21 XR/XR hip RT min 2V(w/wo pelvis)*: History of right hip replacement Copies to: Giancarlo Prater MD XR hip RT min 2V(w/wo pelvis)* 03/30/2021 12:14 PM SIGNS AND SYMPTOMS: Right hip pain, history of arthroplasty PROTOCOL: Frontal radiograph the pelvis with frontal and frog-leg views of right hip. COMPARISON: 07/09/2019 FINDINGS: There is total right hip arthroplasty without evidence of fracture or hardware complication. There is no evidence of dislocation. Postoperative changes are noted along the pelvis suggesting prior hernia repair. There is posterior fusion in the lower lumbar spine with a dextroconvex curvature. Vascular calcified lesions are noted in the right thigh. XR/XR hip RT min 2V(w/wo pelvis)* IMPRESSION: There is total right hip arthroplasty without evidence of fracture or hardware complication. There is no evidence of dislocation. Degenerative changes are partly visualized in the lumbar spine with posterior fusion hardware and a dextro convex curvature. Impression dictated by: Dre Alexander M.D.03/30/2021 2:57 PM Dictation Location: [place] [address] Transcribed By: [facility] 03/30/21 145 Dictated By: Dre Alexander II, MD 03/30/211454 Signed By: 03/30/21 145 [facility] CBC COMPLETE BLOOD COUNTon 09-16-2018 Erythrocyte distribution width (RBC) [Ratio] 16.3 % High 11.5-15.0 [facility] Comment on above: Order Comment: No: D o not add to previous drawNurse draw per farooq dunham Performed By: #### 4 1000, 17377, 19467, 07834, 55846, 11049, 54202 #### [facility] [address] [place] [address], [facility] Hematocrit (Bld) [Volume fraction] 26.9 % Low 36.0-45.0 [facility] Comment on above: Order Comment: No: D o not add to previous drawNurse draw per farooq dunham Performed By: #### 4 1000, 06428, 64881, 42565, 34860, 06999, 20714 #### [facility] [address] [place] [address], [facility] Hemoglobin (Bld) [Mass/Vol] 8.4 g/dL Low 12.0-15.0 [facility] Comment on above: Order Comment: No: D o not add to previous drawNurse draw per rn charla Performed By: #### 4 1000, 92412, 17854, 26780, 04618, 29245, 67320 #### [facility] [address] [place] [address], [facility] MCH (RBC) [Entitic mass] 27.4 pg Normal 27.0-33.0 [facility] Comment on above: Order Comment: No: D o not add to previous drawNurse draw per rn charla Performed By: #### 4 1000, 65644, 01421, 91197, 78387, 65723, 79096 #### [facility] [address] [place] [address], [facility] MCHC (RBC) [Mass/Vol] 31.2 g/dL Low 32.0-35.0 [facility] Comment on above: Order Comment: No: D o not add to previous drawNurse draw per rn charla Performed By: #### 4 1000, 38482, 02404, 47985, 36469, 92125, 06183 #### [facility] [address] [place] [address], [facility] MCV (RBC) [Entitic vol] 87.6 fL Normal 82.0-98.0 [facility] Comment on above: Order Comment: No: D o not add to previous drawNurse draw per rn charla Performed By: #### 4 1000, 57758, 33348, 80913, 44043, 56358, 34433 #### [facility] [address] [place] [address], [facility] Nucleated RBC/100 WBC (Bld) [Ratio] 0 % Normal 0-0 [facility] Comment on above: Order Comment: No: D o not add to previous drawNurse draw per rn charla Performed By: #### 4 1000, 35330, 85630, 03681, 05668, 07626, 42538 #### [facility] [address] [place] [address], [facility] PLAT CNT 838 10*3/uL High 150-[address] [facility] Comment on above: Order Comment: No: D o not add to previous drawNurse draw per rn charla Performed By: #### 4 1000, 62287, 32046, 13996, 58300, 69119, 59359 #### [facility] [address] [place] [address], [facility] RBC (Bld) [#/Vol] 3.07 10*6/uL Low 3.80-5.00 [facility] Comment on above: Order Comment: No: D o not add to previous drawNurse draw per rn charla Performed By: #### 4 1000, 55894, 71984, 30917, 76000, 07328, 96814 #### [facility] [address] [place] [address], [facility] WBC (Bld) [#/Vol] 8.82 10*3/uL Normal 4.00-10.60 [facility] Comment on above: Order Comment: No: D o not add to previous drawNurse draw per rn charla Performed By: #### 4 1000, 70980, 50368, 96491, 86263, 45638, 59367 #### [facility] [address] [place] [address], [facility] CBC COMPLETE BLOOD COUNTon 09-15-2018 Erythrocyte distribution width (RBC) [Ratio] 15.9 % High 11.5-15.0 [facility] Comment on above: Order Comment: No: D o not add to previous draw Performed By: #### 4 1000, 00271, 57314, 10309, 87353, 49827, 08694 #### [facility] [address] [place] [address], [facility] Hematocrit (Bld) [Volume fraction] 26.5 % Low 36.0-45.0 [facility] Comment on above: Order Comment: No: D o not add to previous draw Performed By: #### 4 1000, 27629, 70500, 64711, 46679, 73062, 60350 #### [facility] [address] [place] [address], [facility] Hemoglobin (Bld) [Mass/Vol] 8.3 g/dL Low 12.0-15.0 [facility] Comment on above: Order Comment: No: D o not add to previous draw Performed By: #### 4 1000, 38369, 62025, 46083, 71946, 17754, 35839 #### [facility] [address] [place] [address], [facility] MCH (RBC) [Entitic mass] 26.9 pg Low 27.0-33.0 [facility] Comment on above: Order Comment: No: D o not add to previous draw Performed By: #### 4 1000, 73293, 74296, 20037, 62734, 13755, 46207 #### [facility] [place] [address] [place] [address], [facility] MCHC (RBC) [Mass/Vol] 31.3 g/dL Low 32.0-35.0 [facility] Comment on above: Order Comment: No: D o not add to previous draw Performed By: #### 4 1000, 18841, 20791, 99302, 16342, 81012, 79407 #### [facility] [place] [address] [facility] [place] [address], [facility] MCV (RBC) [Entitic vol] 85.8 fL Normal 82.0-98.0 [facility] Comment on above: Order Comment: No: D o not add to previous draw Performed By: #### 4 1000, 60297, 13717, 40780, 89962, 71735, 37805 #### [facility] [place] [address] [place] [address], [facility] Nucleated RBC/100 WBC (Bld) [Ratio] 0 % Normal 0-0 [facility] Comment on above: Order Comment: No: D o not add to previous draw Performed By: #### 4 1000, 83379, 20272, 78071, 15495, 90570, 36366 #### [facility] [place] [address] [place] [address], [facility] PLAT CNT 881 10*3/uL High 150-[address] [facility] Comment on above: Order Comment: No: D o not add to previous draw Performed By: #### 4 1000, 61826, 81889, 96346, 42781, 61955, 84836 #### [facility] [place] [address] [facility] [place] [address], [facility] RBC (Bld) [#/Vol] 3.09 10*6/uL Low 3.80-5.00 [facility] Comment on above: Order Comment: No: D o not add to previous draw Performed By: #### 4 1000, 15866, 98958, 65517, 03605, 44569, 13360 #### [facility] [place] [address] [place] [address], [facility] WBC (Bld) [#/Vol] 10.95 10*3/uL High 4.00-10.60 [facility] Comment on above: Order Comment: No: D o not add to previous draw Performed By: #### 4 1000, 46022, 76514, 69603, 97875, 37696, 91270 #### [facility] [place] [address] [facility] [place] [address], [facility] MAGNESIUM BLOODon 07-16-2019 Magnesium [Mass/Vol] 1.7 mg/dL Low 1.9-2.7 [facility] Comment on above: Order Comment: No: D o not add to previous draw Performed By: #### 4 1000, 26806, 00790, 39173, 68190, 43724, 27760 #### [facility] [place] [address] [place] [address], [place] BASIC METABOLIC PANELon 11- Calcium [Mass/Vol] 8.8 mg/dL Normal 8.6-10.3 [facility] Comment on above: Order Comment: No: D o not add to previous draw Performed By: #### 4 1000, 33323, 11969, 12672, 39587, 66525, 62276 #### [facility] [place] [address] [place] [address], [place] Chloride [Moles/Vol] 104 mmol/L Normal 98-107 [facility] Comment on above: Order Comment: No: D o not add to previous draw Performed By: #### 4 1000, 77171, 54177, 36190, 91012, 12141, 06085 #### [facility] [place] [address] [place] [address], [place] CO2 [Moles/Vol] 28 mmol/L Normal 21-31 [facility] Comment on above: Order Comment: No: D o not add to previous draw Performed By: #### 4 1000, 45830, 18157, 91468, 63364, 62001, 96238 #### [facility] [place] [address] [place] [address], [place] Creatinine [Mass/Vol] 0.57 mg/dL Low 0.60-1.20 [facility] Comment on above: Order Comment: No: D o not add to previous draw Performed By: #### 4 1000, 73122, 10641, 71444, 39541, 05381, 92732 #### [facility] [place] [address] [place] [address], [place] GFR/1.73 sq M predicted among blacks MDRD (S/P/Bld) [Vol rate/Area] mL/min/{1.73_m2} Normal >60 [facility] Comment on above: Order Comment: No: D o not add to previous draw Result Comment: Calc ulation may not be valid for patients over 70 years Performed By: #### 4 1000, 21268, 06333, 75420, 84442, 44364, 39102 #### [facility] [place] [address] [place] [address], [place] GFR/1.73 sq M predicted among non-blacks MDRD (S/P/Bld) [Vol rate/Area] mL/min/{1.73_m2} Normal >60 [facility] Comment on above: Order Comment: No: D o not add to previous draw Result Comment: Calc ulation may not be valid for patients over 70 years Performed By: #### 4 1000, 84791, 58013, 77115, 09290, 02734, 10440 #### [facility] [place] [address] [place] [address], [place] Glucose [Mass/Vol] 80 mg/dL Normal 70-100 [facility] Comment on above: Order Comment: No: D o not add to previous draw Performed By: #### 4 1000, 49763, 65852, 32433, 67195, 23203, 23701 #### [facility] [place] [address] [place] [address], [place] Potassium [Moles/Vol] 3.9 mmol/L Normal 3.5-5.1 [facility] Comment on above: Order Comment: No: D o not add to previous draw Performed By: #### 4 1000, 11911, 97694, 34084, 61808, 53701, 13999 #### [facility] [place] [address] [place] [address], [place] Sodium [Moles/Vol] 139 mmol/L Normal 136-145 [facility] Comment on above: Order Comment: No: D o not add to previous draw Performed By: #### 4 1000, 65511, 15977, 96990, 95046, 73144, 11553 #### [facility] [place] [address] [place] [address], [place] Urea nitrogen [Mass/Vol] 10 mg/dL Normal 7-25 [facility] Comment on above: Order Comment: No: D o not add to previous draw Performed By: #### 4 1000, 66964, 67570, 25722, 16272, 62845, 88872 #### [facility] [place] [address] [place] [address], [facility] C REACTIVE PROTEINon 019 CRP [Mass/Vol] 19.7 mg/L High 0.0-7.0 [facility] Comment on above: Order Comment: No: D o not add to previous draw Performed By: #### 4 1000, 26271, 77989, 60392, 81707, 84001, 56564 #### [facility] [place] [address] CBC W/DIFFon 07-15-2019 ABS BASOPHILS 0.0 10*3/uL Normal 0.0-0.2 [facility] Comment on above: Order Comment: No: D o not add to previous draw Performed By: #### 4 1000, 03707, 67998, 26421, 17273, 26895, 92805 #### [facility] [place] [address] ABS NEUTROPHILS 7.9 10*3/uL High 1.6-7.6 [facility] Comment on above: Order Comment: No: D o not add to previous draw Performed By: #### 4 1000, 79800, 56085, 66232, 36295, 68186, 40420 #### [facility] [place] [address] [place] [address], [facility] Basophils/100 WBC (Bld) 0.0 % Normal 0.0-1.0 [facility] Comment on above: Order Comment: No: D o not add to previous draw Performed By: #### 4 1000, 94201, 61945, 41516, 12783, 65351, 44370 #### [facility] [place] [address] [facility] [place] [address], [facility] Eosinophils (Bld) [#/Vol] 0.8 10*3/uL High 0.0-0.5 [facility] Comment on above: Order Comment: No: D o not add to previous draw Performed By: #### 4 1000, 08279, 32425, 80438, 03389, 75257, 68812 #### [facility] [place] [address] [place] [address], [facility] Eosinophils/100 WBC (Bld) 7.2 % High 0.0-6.0 [facility] Comment on above: Order Comment: No: D o not add to previous draw Performed By: #### 4 1000, 44205, 19205, 84851, 75352, 10409, 98056 #### [facility] [place] [address] Erythrocyte distribution width (RBC) [Ratio] 15.9 % High 11.5-15.0 [facility] Comment on above: Order Comment: No: D o not add to previous draw Performed By: #### 4 1000, 08066, 64445, 38876, 43307, 23798, 97851 #### [facility] [place] [address] [place] [address], [facility] GIANT PLATELETS Present Normal [facility] Comment on above: Order Comment: No: D o not add to previous draw Performed By: #### 4 1000, 87444, 43955, 04219, 14975, 99417, 68379 #### [facility] [place] [address] [place] [address], [facility] Hematocrit (Bld) [Volume fraction] 27.0 % Low 36.0-45.0 [facility] Comment on above: Order Comment: No: D o not add to previous draw Performed By: #### 4 1000, 71876, 19011, 12569, 92176, 99903, 63710 #### [facility] [place] [address] Hemoglobin (Bld) [Mass/Vol] 8.5 g/dL Low 12.0-15.0 [facility] Comment on above: Order Comment: No: D o not add to previous draw Performed By: #### 4 1000, 10538, 72889, 86672, 04817, 46045, 85292 #### [facility] [place] [address] [place] [address], [facility] Lymphocytes (Bld) [#/Vol] 2.1 10*3/uL Normal 1.2-4.0 [facility] Comment on above: Order Comment: No: D o not add to previous draw Performed By: #### 4 1000, 46902, 96777, 26796, 32472, 92594, 39482 #### [facility] [place] [address] [place] [address], [facility] Lymphocytes/100 WBC (Bld) 18.0 % Low 20.0-45.0 [facility] Comment on above: Order Comment: No: D o not add to previous draw Performed By: #### 4 1000, 47785, 81778, 07268, 00200, 62037, 93894 #### [facility] [place] [address] [place] [address], [facility] MCH (RBC) [Entitic mass] 27.1 pg Normal 27.0-33.0 [facility] Comment on above: Order Comment: No: D o not add to previous draw Performed By: #### 4 1000, 42395, 12905, 40518, 36801, 68343, 55119 #### [facility] [place] [address] [place] [id number], [facility] MCHC (RBC) [Mass/Vol] 31.5 g/dL Low 32.0-35.0 [facility] Comment on above: Order Comment: No: D o not add to previous draw Performed By: #### 4 1000, 32003, 77582, 12285, 26695, 08196, 27134 #### [facility] [place] [address] [place] [address], [facility] MCV (RBC) [Entitic vol] 86.0 fL Normal 82.0-98.0 [facility] Comment on above: Order Comment: No: D o not add to previous draw Performed By: #### 4 1000, 77773, 09735, 52815, 45523, 04580, 76171 #### [facility] [place] [address] [place] [address], [facility] Monocytes (Bld) [#/Vol] 1.0 10*3/uL Normal 0.1-1.0 [facility] Comment on above: Order Comment: No: D o not add to previous draw Performed By: #### 4 1000, 44878, 24210, 66110, 49376, 09894, 19739 #### [facility] [place] [address] [place] [address], [facility] MONOS 8.1 % Normal 5.0-12.0 [facility] Comment on above: Order Comment: No: D o not add to previous draw Performed By: #### 4 1000, 66113, 21761, 88852, 06629, 93157, 22418 #### [facility] [place] [address] [place] [address], [facility] Neutrophils/100 WBC (Bld) 66.7 % Normal 40.0-72.0 [facility] Comment on above: Order Comment: No: D o not add to previous draw Performed By: #### 4 1000, 05936, 66672, 84545, 48915, 99800, 41512 #### [facility] [place] [address] [place] [address], [facility] Nucleated RBC/100 WBC (Bld) [Ratio] 0 % Normal 0-0 [facility] Comment on above: Order Comment: No: D o not add to previous draw Performed By: #### 4 1000, 98523, 14292, 11794, 55574, 72773, 37797 #### [facility] [place] [address] [place] [address], [facility] PLAT CNT 888 10*3/uL High 150-[address] [facility] Comment on above: Order Comment: No: D o not add to previous draw Performed By: #### 4 1000, 04264, 96984, 71998, 20914, 45908, 28957 #### [facility] [place] [address] [place] [address], [facility] RBC (Bld) [#/Vol] 3.14 10*6/uL Low 3.80-5.00 [facility] Comment on above: Order Comment: No: D o not add to previous draw Performed By: #### 4 1000, 51458, 79329, 83584, 19391, 20970, 99862 #### [facility] [place] [address] WBC (Bld) [#/Vol] 11.78 10*3/uL High 4.00-10.60 [facility] Comment on above: Order Comment: No: D o not add to previous draw Performed By: #### 4 1000, 46144, 09966, 12909, 47287, 80800, 32353 #### [facility] [place] [address] [facility] MAGNESIUM BLOODon 07-15-2019 Magnesium [Mass/Vol] 1.6 mg/dL Low 1.9-2.7 [facility] Comment on above: Order Comment: No: D o not add to previous draw Performed By: #### 4 1000, 23152, 14666, 81550, 62837, 00541, 81132 #### [facility] [place] [address] [facility] Operative Reporton 9 Operative Report MR#: [id number] I [facility] Pt. Name: Emy Cheatham Room #: [id number] Discharge Date: Birthdate: 1945 OPERATIVE REPORT DATE OF SURGERY: 07/12/2019 SURGEON: Soy Ca MD PREOPERATIVE DIAGNOSIS: Right thigh abscess with possible right hip periprosthetic infection. POSTOPERATIVE DIAGNOSIS: Right thigh abscess with possible right hip periprosthetic infection. OPERATIVE PROCEDURE DONE: 1. Drainage of right thigh abscess, Irrigation and debridement down to and including the bone. 2. Application of antibiotic beads. 3. Right hip aspiration. 4- Application of an incisional wound Vac , wound size 23 cm. ANESTHESIA: General anesthesia. ESTIMATED BLOOD LOSS: 200 mL. COMPLICATIONS: None. SPECIMENS: Sent to the lab for cultures and sensitivities. IMPLANTS USED: A 10 mL of Stimulan mixed with 1 g of vancomycin powder and 240 mg of tobramycin liquid. INDICATIONS FOR THE PROCEDURE: The patient is a 73-year-old patient with a history of right total hip arthroplasty done in 2017. She had a trochanteric plate for an intraoperative trochanteric fracture. She did well after surgery, healed incisions very well. Later, she had pain due to prominence of the plate and had surgery done in [place], where the plate was removed and she stated also the trochanteric bursa was excised. The patient stated that she always had problems related to the hip and had problems with walking without a walker and she will walk with attendant. Recently, she stated that her pain has been exacerbated and about a week to 10 days ago, she started having increasing pain. Few days ago, she started having increasing redness, hotness, swelling, and copious drainage from the scar from the old surgery in the lateral aspect of the proximal thigh. She also stated she had a history of bad urinary tract infection with possible bacteremia. The patient presented with an x-ray that showed well-positioned and maintained hip replacement on the right side with well ingrown implant. She also had a CT scan from an outside hospital, showing the presence of a collection around the greater trochanter; however, did not show it was extending to the hip. The patient had a significant increase in inflammatory markers and she started to have some fever and chills. The patient was started on IV antibiotics by the Medicine team, as they were the admitting service. We were consulted for evaluation. After examining the patient clinically and reviewing her x-rays and CT scans, we discussed the options with the patient. We discussed with the patient and her family that at this point, we are going to drain the abscess and do I and D for her thigh infection. If the infection is obviously going all the way down to the hip joint, we are going to do an irrigation and debridement, poly liner exchange because there was exchange of the femoral head. In case the tissue around the hip was found to be intact, we discussed possible aspiration of the hip to diagnose any intraarticular infection. We discussed the possibility of doing later on stage I revision in the form of explantation and application of the cement spacer if we think she has a deep periprosthetic infection. We discussed with the family that at this point, the hemoglobin is very low and she is very sick to undertake such a big procedure. All the risks and benefits of the surgery and all the risks and benefits and the success rate of the different surgical options were discussed in detail with the patient and her family. We also discussed and consented the patient of the possible application of the antibiotic beads. We discussed with her the possibility of putting her on 6 weeks of IV antibiotics. It depends on the culture results per Infectious Disease service and discussed the possibility of chronic suppression of antibiotics long-term. All the risks and benefits of the surgery including risk of persistent infection, risk of bleeding, risk of hip dislocation, risk of persistence of pain, DVT/pulmonary embolism, and medical complications were all discussed. The patient understood the recommendations and agreed to proceed with surgery. Also, we discussed the possibility of using the wound VAC during surgery. SURGICAL DETAILS: The patient was identified in the preoperative holding area. Her right lower extremity was examined and signed by indelible marker. All questions were answered and consents were signed. The patient was then taken back to the OR, where she received general anesthesia. She was positioned in the lateral decubitus position on a PEG board table and she was positioned so that her right hip is up. An axillary roll was inserted underneath her left axilla and all her bony prominences were very well padded. She was secured and positioned with padded pegs. Her right lower extremity was prepped and draped in the standard sterile fashion. A time-out was performed in my presence. I identified the patient, the site of the surgery as well as the procedure to be done. All x-rays were up and all the necessary equipment were present in the room. The preoperative antibiotics were starting for the incision. We started by making an incision following the scar of the previous surgery. Once the skin was opened, the abscess cavity was entered and a copious amount of purulent fluid came out from the wound. The cultures from the fluid were sent to the lab for culture and sensitivities. We continued to dissect deeper through the dense scar tissue, especially in the proximal aspect of the wound. The deep fascia was found to be completely disrupted over the greater trochanter and the bone was readily in site. Dissection continued to more proximal, opening the remaining of the gluteus aleyda muscle that was completely scarred down and incorporated into the scar of the incision. Once this was done, the greater trochanter was seen completely devoid of any attachments, with complete avulsion of old abductors and was not even covered with a deep tissue indicating a picture of a bold trochanter. The abductor tendon was found retracted and scarred completely, indicating the chronicity of the situation. At this point, the hip was internally rotated and the capsule around the hip was completely sealed, there is no vision of the metals posteriorly or anteriorly. At this point, the hip was examined and found to be very stable. Complete debridement of any unhealthy-looking tissue was done all the way down to the bone. The bone of the greater trochanter had unhealthy-looking granulation tissue over it. Using a Trammell elevator and curette, all the bones of the greater trochanter and the proximal femur were debrided thoroughly and using a rongeur, bone samples were taken for cultures to rule out osteomyelitis. At this point, irrigation with copious amount of Betadine impregnated irrigation fluid was done followed by application of hard hydrogen peroxide solution and another round of irrigation. A total of 9 L of irrigation using pulse lavage was used. At the end of the debridement, we had good bleeding healthy tissue all over and after thorough irrigation, using an 18-gauge needle through the anterior aspect of the hip, the needle was used to aspirate the hip joint. However, the result with a dry tap, there is no evidence of any fluid inside the hip. At this point, a 10 mL of Stimulan calcium phosphate powder was mixed with 1 g of vancomycin and 6 mL of liquid tobramycin with a total of 240 mg of tobramycin. The paste was inserted into a mold and made into a small pellet, that was inserted into the wound. At this point, the wound was closed using #1 PDS sutures. The remaining of the deep tissue was closed. The tissue was closed in 2 layers and the skin was then closed in a simple and mattress fashion after the excision of the unhealthy-looking skin edges and all the tissue samples from different aspects of the wound that were also sent for culture and sensitivity. After the completion of the closure of the wound of 23 cm, an incisional wound VAC was applied after packing the skin with a layer of Adaptic nonadhesive dressing. The wound VAC was sealed and we were able to obtain a good seal with no leak. At this point, drapes were taken down. The patient was positioned in a supine position on the hospital bed. She recovered well from anesthesia, transferred to the PACU in a stable condition. Neurovascular examination in the PACU was intact. We did application of incisional wound VAC, wound size 23 cm. I was present throughout the entirety of the procedure. PLAN: The patient will be returned back to the floor for postoperative antibiotics and postoperative DVT prophylaxis. The patient will be weightbearing as tolerated with a walker and with physical therapy. Electronically Signed by: Soy Ca MD 07/16/2019 08:18 A Soy Ca MD Date Dict: 07/14/2019/08:56 P/Soy Ca MD Date Trans: 07/15/2019 01:09 Yudelka/anibal [id number] cc: Nasreen Mary M.D. [address] [place] [id number] [place] [facility] SEDIMENTATION RATEon 019 SED RATE 54 mm/hr High 0-20 [facility] Comment on above: Order Comment: No: D o not add to previous draw Performed By: #### 4 1000, 66660, 45218, 47741, 71929, 39806, 94238 #### [facility] [place] [address] [place] [address], [facility] BASIC METABOLIC PANELon 07-04 Calcium [Mass/Vol] 8.5 mg/dL Low 8.6-10.3 [facility] Comment on above: Order Comment: No: D o not add to previous draw Performed By: #### 4 1000, 98724, 24691, 55114, 10157, 64737, 46961 #### [facility] [place] [address] [place] [address], [facility] Chloride [Moles/Vol] 105 mmol/L Normal 98-107 [facility] Comment on above: Order Comment: No: D o not add to previous draw Performed By: #### 4 1000, 28226, 55785, 08697, 55979, 44122, 36001 #### [facility] [place] [address] [place] [address], [place] CO2 [Moles/Vol] 21 mmol/L Normal 21-31 [facility] Comment on above: Order Comment: No: D o not add to previous draw Performed By: #### 4 1000, 32704, 42384, 03556, 96580, 49569, 58434 #### [facility] [place] [address] [place] [address], [facility] Creatinine [Mass/Vol] 0.70 mg/dL Normal 0.60-1.20 [facility] Comment on above: Order Comment: No: D o not add to previous draw Performed By: #### 4 1000, 71219, 57079, 42513, 26320, 00176, 24006 #### [facility] [place] [address] [place] [address], [facility] GFR/1.73 sq M predicted among blacks MDRD (S/P/Bld) [Vol rate/Area] mL/min/{1.73_m2} Normal >60 [facility] Comment on above: Order Comment: No: D o not add to previous draw Result Comment: Calc ulation may not be valid for patients over 70 years Performed By: #### 4 1000, 23962, 61805, 65831, 00458, 18258, 16664 #### [facility] [place] [address] [place] [address], [place] GFR/1.73 sq M predicted among non-blacks MDRD (S/P/Bld) [Vol rate/Area] mL/min/{1.73_m2} Normal >60 [facility] Comment on above: Order Comment: No: D o not add to previous draw Result Comment: Calc ulation may not be valid for patients over 70 years Performed By: #### 4 1000, 60236, 53126, 37223, 87154, 61600, 43768 #### [facility] [place] [address] [place] [address], [place] Glucose [Mass/Vol] 120 mg/dL High 70-100 [facility] Comment on above: Order Comment: No: D o not add to previous draw Performed By: #### 4 1000, 61466, 64131, 75992, 84429, 35970, 31313 #### [facility] [place] [address] [place] [address], [place] Potassium [Moles/Vol] 4.0 mmol/L Normal 3.5-5.1 [facility] Comment on above: Order Comment: No: D o not add to previous draw Performed By: #### 4 1000, 00049, 78323, 90907, 07417, 57162, 80597 #### [facility] [place] [address] [place] [address], [place] Sodium [Moles/Vol] 136 mmol/L Normal 136-145 [facility] Comment on above: Order Comment: No: D o not add to previous draw Performed By: #### 4 1000, 55223, 92914, 74647, 76990, 55359, 40991 #### [facility] [place] [address] [place] [address], [place] Urea nitrogen [Mass/Vol] 10 mg/dL Normal 7-25 [facility] Comment on above: Order Comment: No: D o not add to previous draw Performed By: #### 4 1000, 00487, 49617, 86309, 96690, 25997, 39891 #### [facility] [place] [address] [place] [address], [place] C REACTIVE PROTEINon 11-11-2 019 CRP [Mass/Vol] 26.5 mg/L High 0.0-7.0 [facility] Comment on above: Order Comment: No: D o not add to previous draw Performed By: #### 4 1000, 17608, 08168, 86246, 80988, 13685, 10684 #### [facility] [place] [address] [facility] CBC W/DIFFon 07-14-2019 ABS BASOPHILS 0.1 10*3/uL Normal 0.0-0.2 [facility] Comment on above: Order Comment: No: D o not add to previous draw Performed By: #### 4 1000, 27665, 48711, 20571, 43856, 48476, 56741 #### [facility] [place] [address] ABS IMM GRANS 1.2 10*3/uL High 0.0-0.2 [facility] Comment on above: Order Comment: No: D o not add to previous draw Performed By: #### 4 1000, 91924, 27076, 09131, 58768, 43294, 14470 #### [facility] [place] [address] [facility]. [address] ABS NEUTROPHILS 6.0 10*3/uL Normal 1.6-7.6 [facility] Comment on above: Order Comment: No: D o not add to previous draw Performed By: #### 4 1000, 23319, 72532, 66452, 79131, 71008, 19206 #### [facility] [place] [address] [facility] [place] [address], [facility] Basophils/100 WBC (Bld) 0.8 % Normal 0.0-1.0 [facility] Comment on above: Order Comment: No: D o not add to previous draw Performed By: #### 4 1000, 39707, 93539, 02122, 25520, 53776, 38876 #### [facility] [place] [address] [place] [address], [facility] Eosinophils (Bld) [#/Vol] 0.7 10*3/uL High 0.0-0.5 [facility] Comment on above: Order Comment: No: D o not add to previous draw Performed By: #### 4 1000, 53608, 37237, 38763, 01263, 44547, 80603 #### [facility] [place] [address] [place] [address], [facility] Eosinophils/100 WBC (Bld) 6.8 % High 0.0-6.0 [facility] Comment on above: Order Comment: No: D o not add to previous draw Performed By: #### 4 1000, 79903, 13160, 56862, 98248, 77014, 93479 #### [facility] [place] [address] [place] [address], [facility] Erythrocyte distribution width (RBC) [Ratio] 15.6 % High 11.5-15.0 [facility] Comment on above: Order Comment: No: D o not add to previous draw Performed By: #### 4 1000, 84163, 28080, 55388, 19167, 25879, 94733 #### [facility] [place] [address] [place] [address], [facility] Hematocrit (Bld) [Volume fraction] 31.9 % Low 36.0-45.0 [facility] Comment on above: Order Comment: No: D o not add to previous draw Performed By: #### 4 1000, 30209, 22851, 15277, 82772, 92920, 20699 #### [facility] [place] [address] [place] [address], [facility] Hemoglobin (Bld) [Mass/Vol] 9.7 g/dL Low 12.0-15.0 [facility] Comment on above: Order Comment: No: D o not add to previous draw Performed By: #### 4 1000, 05741, 86941, 27029, 69438, 70092, 44073 #### [facility] [place] [address] [place] [address], [facility] IMM PLATELET FRAC 1.1 % Normal 0.8-6.3 [facility] Comment on above: Order Comment: No: D o not add to previous draw Performed By: #### 4 1000, 85374, 31052, 01654, 51903, 57635, 14522 #### [facility] [place] [address] [place] [place] [address], [facility] IMMATURE GRANS 10.5 % High 0.0-1.0 [facility] Comment on above: Order Comment: No: D o not add to previous draw Performed By: #### 4 1000, 37773, 64634, 81250, 34485, 88003, 37070 #### [facility] [place] [address] [place] [address], [facility] Lymphocytes (Bld) [#/Vol] 2.4 10*3/uL Normal 1.2-4.0 [facility] Comment on above: Order Comment: No: D o not add to previous draw Performed By: #### 4 1000, 06448, 83900, 05632, 17382, 23520, 27546 #### [facility] [place] [address] [place] [address], [facility] Lymphocytes/100 WBC (Bld) 21.8 % Normal 20.0-45.0 [facility] Comment on above: Order Comment: No: D o not add to previous draw Performed By: #### 4 1000, 08968, 78888, 93978, 08704, 64238, 32765 #### [facility] [place] [address] [facility] [place] [address], [facility] MCH (RBC) [Entitic mass] 26.6 pg Low 27.0-33.0 [facility] Comment on above: Order Comment: No: D o not add to previous draw Performed By: #### 4 1000, 24358, 18451, 58211, 11214, 94506, 47155 #### [facility] [place] [address] [place] [address], [facility] MCHC (RBC) [Mass/Vol] 30.4 g/dL Low 32.0-35.0 [facility] Comment on above: Order Comment: No: D o not add to previous draw Performed By: #### 4 1000, 73764, 52833, 71948, 82961, 56365, 67569 #### [facility] [place] [address] [place] [id number], [facility] MCV (RBC) [Entitic vol] 87.4 fL Normal 82.0-98.0 [facility] Comment on above: Order Comment: No: D o not add to previous draw Performed By: #### 4 1000, 84809, 41010, 54707, 16392, 01419, 50445 #### [facility] [place] [address] [place] [address], [facility] Monocytes (Bld) [#/Vol] 0.6 10*3/uL Normal 0.1-1.0 [facility] Comment on above: Order Comment: No: D o not add to previous draw Performed By: #### 4 1000, 39463, 90600, 92024, 18058, 10498, 28340 #### [facility] [place] [address] [place] [address], [facility] MONOS 5.4 % Normal 5.0-12.0 [facility] Comment on above: Order Comment: No: D o not add to previous draw Performed By: #### 4 1000, 34466, 73871, 98511, 70406, 55113, 28985 #### [facility] [place] [address] [place] [id number], [facility] Neutrophils/100 WBC (Bld) 54.7 % Normal 40.0-72.0 [facility] Comment on above: Order Comment: No: D o not add to previous draw Performed By: #### 4 1000, 72302, 01352, 49061, 32934, 06580, 26405 #### [facility] [place] [address] [place] [address], [facility] Nucleated RBC/100 WBC (Bld) [Ratio] 0 % Normal 0-0 [facility] Comment on above: Order Comment: No: D o not add to previous draw Performed By: #### 4 1000, 72235, 48270, 99410, 15346, 05660, 15306 #### [facility] [place] [address] [place] [address], [facility] PLAT CNT 964 10*3/uL High 150-[address] [facility] Comment on above: Order Comment: No: D o not add to previous draw Result Comment: RESU LTS CHECKED Performed By: #### 4 1000, 61423, 42691, 26819, 73485, 47679, 79803 #### [facility] [place] [address] [place] [address], [facility] RBC (Bld) [#/Vol] 3.65 10*6/uL Low 3.80-5.00 [facility] Comment on above: Order Comment: No: D o not add to previous draw Performed By: #### 4 1000, 28490, 98953, 01092, 30252, 79726, 71513 #### [facility] [place] [address] [place] [address], [facility] WBC (Bld) [#/Vol] 10.93 10*3/uL High 4.00-10.60 [facility] Comment on above: Order Comment: No: D o not add to previous draw Performed By: #### 4 1000, 75119, 25092, 71406, 79373, 77021, 48951 #### [facility] [place] [address] [facility] [place] [address], [facility] HEMOGLOBINon 07-14-2019 Hemoglobin (Bld) [Mass/Vol] 7.0 g/dL Low 12.0-15.0 [facility] Comment on above: Order Comment: No: D o not add to previous draw Performed By: #### 4 1000, 22548, 50661, 21341, 68648, 08363, 30443 #### [facility] [place] [address] [place] [address], [facility] MAGNESIUM BLOODon 07-14-2019 Magnesium [Mass/Vol] 2.0 mg/dL Normal 1.9-2.7 [facility] Comment on above: Order Comment: No: D o not add to previous draw Performed By: #### 4 1000, 05165, 78523, 11176, 71537, 77683, 47600 #### [facility] [place] [address] [place] [address], [facility] RBC'S 1 UNITon 07-14-2019 CROSSMATCH INTERP 1 COMP Normal [facility] Comment on above: Order Comment: No: D o not add to previous draw Performed By: #### 4 1000, 87879, 24093, 61732, 87525, 65446, 30308 #### [facility] [place] [address] [place] [address], [facility] PRODUCT CODE 1 E0336 Normal [facility] Comment on above: Order Comment: No: D o not add to previous draw Performed By: #### 4 1000, 47574, 40075, 51940, 56141, 63090, 63340 #### [facility] [place] [address] [place] [address], [facility] PRODUCT STATUS 1 PT Normal [facility] Comment on above: Order Comment: No: D o not add to previous draw Result Comment: Resu lt changed by IF on 07/14/2019 03:35. The previous value was XM. Result changed by IF on 07/15/2019 00:30. The previous value was IS. Performed By: #### 4 1000, 33738, 81979, 68217, 78718, 22364, 79227 #### [facility] [place] [address] [place] [address], [facility] UNIT ABO 1 O Normal [facility] Comment on above: Order Comment: No: D o not add to previous draw Performed By: #### 4 1000, 68622, 40689, 91301, 16002, 92442, 07828 #### [facility] [place] [address] [place] [address], [facility] UNIT ID 1 [id number] Normal [facility] Comment on above: Order Comment: No: D o not add to previous draw Performed By: #### 4 1000, 51702, 05779, 93766, 65472, 80325, 82616 #### [facility] [place] [address] [place] [address], [facility] UNIT RH 1 Negative Normal [facility] Comment on above: Order Comment: No: D o not add to previous draw Performed By: #### 4 1000, 76260, 19527, 87586, 81433, 34816, 78769 #### [facility] [place] [address] [place] [address], [facility] SEDIMENTATION RATEon 07-14-2 019 SED RATE 48 mm/hr High 0-20 [facility] Comment on above: Order Comment: No: D o not add to previous draw Performed By: #### 4 1000, 15066, 02256, 78439, 51862, 41818, 70419 #### [facility] [place] [address] [place] [address], [facility] BASIC METABOLIC PANELon 11- 0-2018 Calcium [Mass/Vol] 8.5 mg/dL Low 8.6-10.3 [facility] Comment on above: Order Comment: No: D o not add to previous draw Performed By: #### 4 1000, 67305, 13801, 59870, 83702, 54757, 54896 #### [facility] [place] [address] [place] [id number], [facility] Chloride [Moles/Vol] 101 mmol/L Normal 98-107 [facility] Comment on above: Order Comment: No: D o not add to previous draw Performed By: #### 4 1000, 45714, 09705, 97458, 95702, 26964, 81183 #### [facility] [place] [address] [place] [address], [facility] CO2 [Moles/Vol] 28 mmol/L Normal 21-31 [facility] Comment on above: Order Comment: No: D o not add to previous draw Performed By: #### 4 1000, 28298, 20293, 88276, 91482, 30980, 05171 #### [facility] [place] [address] [place] [address], [facility] Creatinine [Mass/Vol] 0.54 mg/dL Low 0.60-1.20 [facility] Comment on above: Order Comment: No: D o not add to previous draw Performed By: #### 4 1000, 17842, 33095, 35846, 27274, 94766, 17553 #### [facility] [place] [address] [place] [place] [address], [facility] GFR/1.73 sq M predicted among blacks MDRD (S/P/Bld) [Vol rate/Area] mL/min/{1.73_m2} Normal >60 [facility] Comment on above: Order Comment: No: D o not add to previous draw Result Comment: Calc ulation may not be valid for patients over 70 years Performed By: #### 4 1000, 29509, 54191, 92481, 73997, 40779, 04092 #### [facility] [place] [address] [place] [address], [facility] GFR/1.73 sq M predicted among non-blacks MDRD (S/P/Bld) [Vol rate/Area] mL/min/{1.73_m2} Normal >60 [facility] Comment on above: Order Comment: No: D o not add to previous draw Result Comment: Calc ulation may not be valid for patients over 70 years Performed By: #### 4 1000, 48701, 68011, 21742, 32759, 68073, 06680 #### [facility] [place] [address] [place] [address], [place] Glucose [Mass/Vol] 92 mg/dL Normal 70-100 [facility] Comment on above: Order Comment: No: D o not add to previous draw Performed By: #### 4 1000, 52833, 55804, 07589, 68668, 77479, 33244 #### [facility] [place] [address] [place] [address], [facility] Potassium [Moles/Vol] 3.6 mmol/L Normal 3.5-5.1 [facility] Comment on above: Order Comment: No: D o not add to previous draw Performed By: #### 4 1000, 79924, 89353, 74580, 33212, 24523, 52546 #### [facility] [place] [address] [place] [address], [facility] Sodium [Moles/Vol] 134 mmol/L Low 136-145 [facility] Comment on above: Order Comment: No: D o not add to previous draw Performed By: #### 4 1000, 28671, 76659, 93129, 38151, 75905, 39230 #### [facility] [place] [address] [place] [address], [facility] Urea nitrogen [Mass/Vol] 10 mg/dL Normal 7-25 [facility] Comment on above: Order Comment: No: D o not add to previous draw Performed By: #### 4 1000, 41037, 32757, 35346, 13961, 73465, 25592 #### [facility] [place] [address] [place] [address], [place] C REACTIVE PROTEINon 11-10-2 019 CRP [Mass/Vol] 59.6 mg/L High 0.0-7.0 [facility] Comment on above: Order Comment: No: D o not add to previous draw Performed By: #### 4 1000, 17131, 90576, 39742, 57011, 54192, 86781 #### [facility] [place] [address] [place] [address], [place] CBC W/DIFFon 07-13-2019 ABS BASOPHILS 0.0 10*3/uL Normal 0.0-0.2 [facility] Comment on above: Order Comment: No: D o not add to previous draw Performed By: #### 4 1000, 99032, 59454, 27069, 59657, 34026, 09439 #### [facility] [place] [address] [place] [address], [facility] ABS NEUTROPHILS 9.5 10*3/uL High 1.6-7.6 [facility] Comment on above: Order Comment: No: D o not add to previous draw Performed By: #### 4 1000, 61126, 23480, 78692, 55543, 06640, 53204 #### [facility] [place] [address] [place] [address], [facility] Basophils/100 WBC (Bld) 0.0 % Normal 0.0-1.0 [facility] Comment on above: Order Comment: No: D o not add to previous draw Performed By: #### 4 1000, 75479, 41403, 91626, 77909, 42289, 80841 #### [facility] [place] [address] [place] [address], [facility] Eosinophils (Bld) [#/Vol] 0.5 10*3/uL Normal 0.0-0.5 [facility] Comment on above: Order Comment: No: D o not add to previous draw Performed By: #### 4 1000, 15993, 24704, 59835, 35428, 07114, 85147 #### [facility] [place] [address] [place] [address], [facility] Eosinophils/100 WBC (Bld) 3.6 % Normal 0.0-6.0 [facility] Comment on above: Order Comment: No: D o not add to previous draw Performed By: #### 4 1000, 61285, 10104, 29479, 90108, 67846, 35621 #### [facility] [place] [address] Erythrocyte distribution width (RBC) [Ratio] 14.6 % Normal 11.5-15.0 [facility] Comment on above: Order Comment: No: D o not add to previous draw Performed By: #### 4 1000, 27565, 17318, 23149, 44417, 78119, 88713 #### [facility] [place] [address] [place] [address], [facility] GIANT PLATELETS Present Normal [facility] Comment on above: Order Comment: No: D o not add to previous draw Performed By: #### 4 1000, 60294, 62079, 88501, 23453, 96365, 18624 #### [facility] [place] [address] [place] [address], [facility] Hematocrit (Bld) [Volume fraction] 25.5 % Low 36.0-45.0 [facility] Comment on above: Order Comment: No: D o not add to previous draw Performed By: #### 4 1000, 58954, 76367, 52344, 99147, 22942, 76828 #### [facility] [place] [address] [place] [address], [facility] Hemoglobin (Bld) [Mass/Vol] 7.7 g/dL Low 12.0-15.0 [facility] Comment on above: Order Comment: No: D o not add to previous draw Performed By: #### 4 1000, 68638, 24824, 09369, 64566, 01199, 02895 #### [facility] [place] [address] [place] [address], [facility] Lymphocytes (Bld) [#/Vol] 2.1 10*3/uL Normal 1.2-4.0 [facility] Comment on above: Order Comment: No: D o not add to previous draw Performed By: #### 4 1000, 64827, 14214, 95154, 93106, 92778, 90441 #### [facility] [place] [address] Lymphocytes/100 WBC (Bld) 16.4 % Low 20.0-45.0 [facility] Comment on above: Order Comment: No: D o not add to previous draw Performed By: #### 4 1000, 03982, 54821, 10396, 73947, 04334, 54502 #### [facility] [place] [address] [place] [address], [facility] MCH (RBC) [Entitic mass] 26.9 pg Low 27.0-33.0 [facility] Comment on above: Order Comment: No: D o not add to previous draw Performed By: #### 4 1000, 40648, 96887, 79316, 78565, 83220, 19203 #### [facility] [place] [address] MCHC (RBC) [Mass/Vol] 30.2 g/dL Low 32.0-35.0 [facility] Comment on above: Order Comment: No: D o not add to previous draw Performed By: #### 4 1000, 98676, 56904, 55692, 06309, 47391, 06899 #### [facility] [place] 3000 [place] [address], [facility] MCV (RBC) [Entitic vol] 89.2 fL Normal 82.0-98.0 [facility] Comment on above: Order Comment: No: D o not add to previous draw Performed By: #### 4 1000, 63066, 58381, 62108, 42632, 78701, 47610 #### [facility] [place] [address] [facility] [address], [facility] METAMYELO 2.7 % High 0.0-0.0 [facility] Comment on above: Order Comment: No: D o not add to previous draw Performed By: #### 4 1000, 32921, 15499, 06600, 02524, 51853, 74833 #### [facility] [place] [address] [place] [address], [facility] Monocytes (Bld) [#/Vol] 0.5 10*3/uL Normal 0.1-1.0 [facility] Comment on above: Order Comment: No: D o not add to previous draw Performed By: #### 4 1000, 30674, 54993, 86367, 94001, 84460, 47861 #### [facility] [place] [address] MONOS 3.6 % Low 5.0-12.0 [facility] Comment on above: Order Comment: No: D o not add to previous draw Performed By: #### 4 1000, 85088, 98415, 75387, 54123, 89388, 84372 #### [facility] [place] [address] Neutrophils/100 WBC (Bld) 73.7 % High 40.0-72.0 [facility] Comment on above: Order Comment: No: D o not add to previous draw Performed By: #### 4 1000, 53647, 27483, 85002, 73418, 86168, 09686 #### [facility] [place] [address] [facility] NRBC SCAN Present Normal [facility] Comment on above: Order Comment: No: D o not add to previous draw Performed By: #### 4 1000, 22821, 75692, 49319, 36139, 95292, 13438 #### [facility] [place] [address] [place] [address], [facility] Nucleated RBC/100 WBC (Bld) [Ratio] 0 % Normal 0-0 [facility] Comment on above: Order Comment: No: D o not add to previous draw Performed By: #### 4 1000, 05730, 82323, 55536, 16013, 34010, 91692 #### [facility] [place] [address] [place] [address], [facility] PLAT CNT 852 10*3/uL High 150-[address] [facility] Comment on above: Order Comment: No: D o not add to previous draw Performed By: #### 4 1000, 21517, 39315, 47440, 04387, 09434, 35442 #### [facility] [place] [address] [place] [id number], [facility] RBC (Bld) [#/Vol] 2.86 10*6/uL Low 3.80-5.00 [facility] Comment on above: Order Comment: No: D o not add to previous draw Performed By: #### 4 1000, 91241, 27717, 58527, 09701, 67169, 10275 #### [facility] [place] [address] [place] [address], [facility] WBC (Bld) [#/Vol] 12.94 10*3/uL High 4.00-10.60 [facility] Comment on above: Order Comment: No: D o not add to previous draw Performed By: #### 4 1000, 58975, 81224, 65043, 06068, 23493, 75395 #### [facility] [place] [address] [place] [address], [facility] ABS BASOPHILS 0.0 10*3/uL Normal 0.0-0.2 [facility] Comment on above: Order Comment: No: D o not add to previous draw Performed By: #### 4 1000, 88235, 14886, 57165, 04519, 37819, 32102 #### [facility] [place] [address] [place] [address], [place] ABS NEUTROPHILS 9.9 10*3/uL High 1.6-7.6 [facility] Comment on above: Order Comment: No: D o not add to previous draw Performed By: #### 4 1000, 84919, 77266, 51705, 63651, 30400, 31773 #### [facility] [place] [address] [place] [address], [place] Basophils/100 WBC (Bld) 0.0 % Normal 0.0-1.0 [facility] Comment on above: Order Comment: No: D o not add to previous draw Performed By: #### 4 1000, 92930, 25295, 02450, 63926, 62939, 99461 #### [facility] [place] [address] [place] [address], [facility] Eosinophils (Bld) [#/Vol] 0.1 10*3/uL Normal 0.0-0.5 [facility] Comment on above: Order Comment: No: D o not add to previous draw Performed By: #### 4 1000, 76963, 04316, 57912, 59231, 66221, 87868 #### [facility] [place] [address] [place] [address], [facility] Eosinophils/100 WBC (Bld) 0.9 % Normal 0.0-6.0 [facility] Comment on above: Order Comment: No: D o not add to previous draw Performed By: #### 4 1000, 63405, 24055, 24437, 91993, 65145, 08333 #### [facility] [place] [address] [place] [address], [facility] Erythrocyte distribution width (RBC) [Ratio] 14.2 % Normal 11.5-15.0 [facility] Comment on above: Order Comment: No: D o not add to previous draw Performed By: #### 4 1000, 54234, 65243, 49918, 34894, 71947, 33635 #### [facility] [place] [address] [place] [address], [facility] GIANT PLATELETS Present Normal [facility] Comment on above: Order Comment: No: D o not add to previous draw Performed By: #### 4 1000, 76938, 50432, 39426, 39216, 88458, 45548 #### [facility] [place] [address] [place] [address], [place] Hematocrit (Bld) [Volume fraction] 22.4 % Low 36.0-45.0 [facility] Comment on above: Order Comment: No: D o not add to previous draw Performed By: #### 4 1000, 96932, 13993, 88016, 54168, 80871, 86893 #### [facility] [place] [address] [place] [address], [facility] Hemoglobin (Bld) [Mass/Vol] 7.0 g/dL Low 12.0-15.0 [facility] Comment on above: Order Comment: No: D o not add to previous draw Performed By: #### 4 1000, 72796, 35250, 77688, 44607, 34619, 51866 #### [facility] [place] [address] [place] [address], [facility] Lymphocytes (Bld) [#/Vol] 1.4 10*3/uL Normal 1.2-4.0 [facility] Comment on above: Order Comment: No: D o not add to previous draw Performed By: #### 4 1000, 38599, 72807, 09398, 44562, 37147, 12236 #### [facility] [place] [address] [place] [address], [facility] Lymphocytes/100 WBC (Bld) 11.9 % Low 20.0-45.0 [facility] Comment on above: Order Comment: No: D o not add to previous draw Performed By: #### 4 1000, 76005, 22454, 47680, 25369, 69806, 73974 #### [facility] [place] [address] [place] [address], [facility] MCH (RBC) [Entitic mass] 27.2 pg Normal 27.0-33.0 [facility] Comment on above: Order Comment: No: D o not add to previous draw Performed By: #### 4 1000, 63271, 88014, 85858, 76831, 67394, 77558 #### [facility] [place] [address] [place] [address], [place] MCHC (RBC) [Mass/Vol] 31.3 g/dL Low 32.0-35.0 [facility] Comment on above: Order Comment: No: D o not add to previous draw Performed By: #### 4 1000, 26928, 89296, 59395, 00008, 42818, 07753 #### [facility] [place] [address] [place] [address], [facility] MCV (RBC) [Entitic vol] 87.2 fL Normal 82.0-98.0 [facility] Comment on above: Order Comment: No: D o not add to previous draw Performed By: #### 4 1000, 07999, 88346, 76623, 44851, 30660, 45495 #### [facility] [place] [address] [place] [address], [facility] Monocytes (Bld) [#/Vol] 0.6 10*3/uL Normal 0.1-1.0 [facility] Comment on above: Order Comment: No: D o not add to previous draw Performed By: #### 4 1000, 33420, 28579, 27163, 34912, 09960, 48448 #### [facility] [place] [address] [place] [address], [facility] MONOS 4.6 % Low 5.0-12.0 [facility] Comment on above: Order Comment: No: D o not add to previous draw Performed By: #### 4 1000, 06999, 54046, 35840, 00881, 68545, 08591 #### [facility] [place] [address] [place] [address], [facility] Neutrophils/100 WBC (Bld) 82.6 % High 40.0-72.0 [facility] Comment on above: Order Comment: No: D o not add to previous draw Performed By: #### 4 1000, 82970, 05974, 95100, 74585, 10169, 71608 #### [facility] [place] [address] [place] [id number], [facility] Nucleated RBC/100 WBC (Bld) [Ratio] 0 % Normal 0-[address] [facility] Comment on above: Order Comment: No: D o not add to previous draw Performed By: #### 4 1000, 64530, 84691, 99569, 63057, 65326, 14990 #### [facility] [place] [address] [place] [address], [facility] PLAT CNT 887 10*3/uL High 150-[address] [facility] Comment on above: Order Comment: No: D o not add to previous draw Performed By: #### 4 1000, 11931, 39032, 46561, 17459, 04318, 81079 #### [facility] [place] [address] [place] [address], [facility] RBC (Bld) [#/Vol] 2.57 10*6/uL Low 3.80-5.00 [facility] Comment on above: Order Comment: No: D o not add to previous draw Performed By: #### 4 1000, 10587, 04229, 52909, 38590, 67039, 70979 #### [facility] [place] [address] [place] [address], [facility] WBC (Bld) [#/Vol] 11.99 10*3/uL High 4.00-10.60 [facility] Comment on above: Order Comment: No: D o not add to previous draw Performed By: #### 4 1000, 16323, 47427, 17736, 55728, 73388, 21438 #### [facility] [place] [address] [place] [address], [facility] MAGNESIUM BLOODon 07-13-2019 Magnesium [Mass/Vol] 1.7 mg/dL Low 1.9-2.7 [facility] Comment on above: Order Comment: No: D o not add to previous draw Performed By: #### 4 1000, 38612, 29814, 95511, 40876, 95514, 11435 #### [facility] [place] [address] [place] [address], [facility] SEDIMENTATION RATEon 11-10-2 019 SED RATE 65 mm/hr High 0-20 [facility] Comment on above: Order Comment: No: D o not add to previous draw Performed By: #### 4 1000, 59065, 64579, 62241, 35166, 16332, 42217 #### [facility] [place] [address] [place], [place] [id number] [place] [address] *ANAEROBIC CULTUREon 019 *ANAEROBIC CULTURE Clinical Report: (D) Specimen/Source: BONE/INTRAOP SPEC Collected: 07/12/2019 14:33 Status: Final Last Updated: 07/17/2019 08:02 (1) 3. RIGHT HIP BONE CULT RES (Final) No Anaerobes Isolated 5 Days Normal [facility] Comment on above: Order Comment: No: D o not add to previous draw Performed By: #### 4 1000, 61079, 49918, 34430, 95974, 11538, 13333 #### [facility] [place] [address] *ANAEROBIC CULTURE Clinical Report: (D) Specimen/Source: TISSUE/INTRAOP SPEC Collected: 07/12/2019 14:06 Status: Final Last Updated: 07/18/2019 15:11 (1) 2. RIGHT HIP ISO (Final) No Anaerobes Isolated 5 Days Normal [facility] Comment on above: Order Comment: No: D o not add to previous draw Performed By: #### 4 1000, 38217, 75389, 81040, 23667, 28647, 13405 #### [facility] [place] [address] *ANAEROBIC CULTURE Clinical Report: (D) Specimen/Source: SWAB/INTRAOP SPEC Collected: 07/12/2019 14:03 Status: Final Last Updated: 07/17/2019 08:00 (1) 1. RIGHT HIP SWAB ISO (Final) No Anaerobes Isolated 5 Days Normal [facility] Comment on above: Order Comment: No: D o not add to previous draw Performed By: #### 4 1000, 39504, 11097, 85318, 22622, 52132, 45267 #### [facility] [place] [address] [facility] [place], [place] [address] [place] [address] *MRSA/MSSA DNA NASALon 07-12 *MRSA/MSSA DNA NASAL Clinical Report: (D ) Specimen: NASAL SWAB Collected: 07/12/2019 11:45 Status: Final Last Updated: 07/14/2019 10:45 MSSA DNA (Final) Negative MRSA DNA (Final) Negative Normal [facility] Comment on above: Performed By: #### 4 1000, 94023, 54860, 68880, 11100, 94355, 27157 #### [facility] [place] [address] [facility] [place] [id number] [place] [address] *TISSUE CULTUREon 07-12-2019 *TISSUE CULTURE Clinical Report: (D) Specimen/Source: TISSUE/INTRAOP SPEC Collected: 07/12/2019 14:33 Status: Final Last Updated: 07/14/2019 07:00 (1) 3. RIGHT HIP BONE GRAM (Final) Many Polys No Bacteria Seen ISO (Final) Rare Growth Escherichia coli Results called. Read back by Rubi Oneil RN (4CD) 10:58 a.m. 07/13/19 For Susceptibility Results Please Refer to Result changed by [email or web address] on 07/14/2019 07:00. The previous result was: ISO (Prelim) Rare Growth Escherichia coli Results called. Read back by Rubi Oneil RN (4CD) 10:58 a.m. 07/13/19 Normal [facility] Comment on above: Order Comment: No: D o not add to previous draw Performed By: #### 4 1000, 73044, 26548, 46522, 79641, 76814, 53271 #### [facility] [place] [address] [facility] [place] [place] [address] [place] [address] *TISSUE CULTURE Clinical Report: (D) Specimen/Source: TISSUE/INTRAOP SPEC Collected: 07/12/2019 14:06 Status: Final Last Updated: 07/14/2019 07:01 (1) 2. RIGHT HIP GRAM (Final) Many Polys No Bacteria Seen ISO (Final) Rare Growth Escherichia coli For Susceptibility Results Please Refer to Results called. Read back by Rubi Oneil RN (4CD) 10:58 a.m. 07/13/19 Result changed by [email or web address] on 07/14/2019 07:01. The previous result was: ISO (Prelim) Rare Growth Escherichia coli Results called. Read back by Rubi Oneil RN (4CD) 10:58 a.m. 07/13/19 Normal [facility] Comment on above: Order Comment: No: D o not add to previous draw Performed By: #### 4 1000, 74712, 90293, 36658, 43595, 99224, 50188 #### [facility] [place] [address] *WOUND CULTUREon 07-12-2019 *WOUND CULTURE Clinical Report: (D) Specimen/Source: WOUND/INTRAOP SPEC Collected: 07/12/2019 14:03 Status: Final Last Updated: 07/14/2019 07:00 (1) 1. RIGHT HIP SWAB GRAM (Final) Few Polys No Bacteria Seen ISO (Final) Escherichia coli Rare Growth Results called. Read back by Rubi Oneil RN (4CD) 10:58 a.m. 07/13/19 ISOLATE: Escherichia coli -- MANISHA (mcg/ml) AMP./SULBAC (AMS) 4/2 Susceptible AMPICILLIN (AM) <=2 Susceptible AZTREONAM (AZM) <=1 Susceptible CEFAZOLIN (CZ) <=1 Susceptible CEFTRIAXONE (AGER TENDER) <=0.5 Susceptible CIPROFLOXACIN (CIP) <=0.5 Susceptible ESBL (-/+) (ESBL) Negative GENTAMICIN (GM) <=1 Susceptible PIP/TAZO (TZP) <=2/4 Susceptible TOBRAMYCIN (TOB) 1 Susceptible TRIMETH/SULFA (SXT) <=0.5/9.5 Susceptible Normal [facility] Comment on above: Order Comment: No: D o not add to previous draw Performed By: #### 4 1000, 61658, 79160, 48333, 95272, 91166, 34433 #### [facility] [place] [address] [facility] [place] [address], [facility] APTTon 11-09-2019 aPTT Coag (Bld) [Time] 45.0 s High 25.0-35.0 [facility] Comment on above: Order Comment: No: D o not add to previous draw Result Comment: ALL RESULTS MUST BE INTERPRETED WITH RESPECT TO BLOOD DRAWING ARTIFACT OR DILUTION ERROR OF ANTICOAGULANT AT THE TIME OF SAMPLING. THE APTT SHOULD NOT BE USED TO MONITOR UNFRACTIONATED HEPARIN THERAPY, THIS LABORATORY NO LONGER HAS AN ESTABLISHED THERAPEUTIC RANGE BASED ON THE APTT. IT IS RECOMMENDED THAT THE [facility] - HEPARIN ASSAY (ANTI-XA ACTIVITY) BE USED FOR THIS PURPOSE. Performed By: #### 4 1000, 98597, 89939, 18352, 35212, 04385, 31836 #### [facility] [place] [address] [place] [address], [facility] BASIC METABOLIC PANELon 11-0 Calcium [Mass/Vol] 8.7 mg/dL Normal 8.6-10.3 [facility] Comment on above: Order Comment: No: D o not add to previous draw Performed By: #### 5 0103, 80784 #### [facility] [place] [address] [place] [address], [facility] Chloride [Moles/Vol] 101 mmol/L Normal 98-107 [facility] Comment on above: Order Comment: No: D o not add to previous draw Performed By: #### 5 102, 41653 #### [facility] [place] [address] [place] [address], [place] CO2 [Moles/Vol] 30 mmol/L Normal 21-31 [facility] Comment on above: Order Comment: No: D o not add to previous draw Performed By: #### 5 010, 30734 #### [facility] [place] [address] [place] [address], [place] Creatinine [Mass/Vol] 0.60 mg/dL Normal 0.60-1.20 [facility] Comment on above: Order Comment: No: D o not add to previous draw Performed By: #### 5 010, 80232 #### [facility] [place] [address] [place] [address], [place] GFR/1.73 sq M predicted among blacks MDRD (S/P/Bld) [Vol rate/Area] mL/min/{1.73_m2} Normal >60 [facility] Comment on above: Order Comment: No: D o not add to previous draw Result Comment: Calc ulation may not be valid for patients over 70 years Performed By: #### 5 0103, 79472 #### [facility] [place] [address] [place] [address], [place] GFR/1.73 sq M predicted among non-blacks MDRD (S/P/Bld) [Vol rate/Area] mL/min/{1.73_m2} Normal >60 [facility] Comment on above: Order Comment: No: D o not add to previous draw Result Comment: Calc ulation may not be valid for patients over 70 years Performed By: #### 5 010, 09713 #### [facility] [place] [address] [place] [address], [place] Glucose [Mass/Vol] 81 mg/dL Normal 70-100 [facility] Comment on above: Order Comment: No: D o not add to previous draw Performed By: #### 5 010, 80055 #### [facility] [place] [address] [place] [address], [place] Potassium [Moles/Vol] 3.5 mmol/L Normal 3.5-5.1 [facility] Comment on above: Order Comment: No: D o not add to previous draw Performed By: #### 5 0103, 65001 #### [facility] [place] [address] [place] [address], [place] Sodium [Moles/Vol] 136 mmol/L Normal 136-145 [facility] Comment on above: Order Comment: No: D o not add to previous draw Performed By: #### 5 010, 77989 #### [facility] [place] [address] Urea nitrogen [Mass/Vol] 10 mg/dL Normal 7-25 [facility] Comment on above: Order Comment: No: D o not add to previous draw Performed By: #### 5 010, 64898 #### [facility] [place] [address] [place] [address], [facility] CBC COMPLETE BLOOD COUNTon 09-11-2018 Erythrocyte distribution width (RBC) [Ratio] 14.3 % Normal 11.5-15.0 [facility] Comment on above: Order Comment: No: D o not add to previous draw Performed By: #### 5 102, 86565 #### [facility] [place] [address] [place] [address], [facility] Hematocrit (Bld) [Volume fraction] 28.3 % Low 36.0-45.0 [facility] Comment on above: Order Comment: No: D o not add to previous draw Performed By: #### 5 102, 71965 #### [facility] [place] [address] [place] [address], [facility] Hemoglobin (Bld) [Mass/Vol] 8.7 g/dL Low 12.0-15.0 [facility] Comment on above: Order Comment: No: D o not add to previous draw Performed By: #### 5 102, 46858 #### [facility] [place] [address] [place] [address], [facility] MCH (RBC) [Entitic mass] 26.9 pg Low 27.0-33.0 [facility] Comment on above: Order Comment: No: D o not add to previous draw Performed By: #### 5 102, 40253 #### [facility] [place] [address] [place] [address], [facility] MCHC (RBC) [Mass/Vol] 30.7 g/dL Low 32.0-35.0 [facility] Comment on above: Order Comment: No: D o not add to previous draw Performed By: #### 5 102, 19221 #### [facility] [place] [address] [place] [address], [facility] MCV (RBC) [Entitic vol] 87.3 fL Normal 82.0-98.0 [facility] Comment on above: Order Comment: No: D o not add to previous draw Performed By: #### 5 102, 29743 #### [facility] [place] [address] [place] [id number], [facility] Nucleated RBC/100 WBC (Bld) [Ratio] 0 % Normal 0-0 [facility] Comment on above: Order Comment: No: D o not add to previous draw Performed By: #### 5 102, 61742 #### [facility] [place] [address] [place] [address], [facility] PLAT CNT 959 10*3/uL High 150-[address] [facility] Comment on above: Order Comment: No: D o not add to previous draw Performed By: #### 5 102, 44379 #### [facility] [place] [address] [place] [address], [facility] RBC (Bld) [#/Vol] 3.24 10*6/uL Low 3.80-5.00 [facility] Comment on above: Order Comment: No: D o not add to previous draw Performed By: #### 5 102, 23844 #### [facility] [place] [address] [place] [id number], [facility] WBC (Bld) [#/Vol] 7.35 10*3/uL Normal 4.00-10.60 [facility] Comment on above: Order Comment: No: D o not add to previous draw Performed By: #### 5 102, 75057 #### [facility] [place] [address] [place] [id number], [facility] Erythrocyte distribution width (RBC) [Ratio] 14.1 % Normal 11.5-15.0 [facility] Comment on above: Order Comment: No: D o not add to previous draw Performed By: #### 5 102, 15948 #### [facility] [place] [address] [place] [address], [facility] Hematocrit (Bld) [Volume fraction] 26.7 % Low 36.0-45.0 [facility] Comment on above: Order Comment: No: D o not add to previous draw Performed By: #### 5 102, 59916 #### [facility] [place] [address] [place] [address], [facility] Hemoglobin (Bld) [Mass/Vol] 8.3 g/dL Low 12.0-15.0 [facility] Comment on above: Order Comment: No: D o not add to previous draw Performed By: #### 5 102, 69871 #### [facility] [place] [address] [place] [id number], [facility] MCH (RBC) [Entitic mass] 26.8 pg Low 27.0-33.0 [facility] Comment on above: Order Comment: No: D o not add to previous draw Performed By: #### 5 102, 89078 #### [facility] [place] [address] [place] [address], [facility] MCHC (RBC) [Mass/Vol] 31.1 g/dL Low 32.0-35.0 [facility] Comment on above: Order Comment: No: D o not add to previous draw Performed By: #### 5 102, 31521 #### [facility] [place] [address] [place] [address], [facility] MCV (RBC) [Entitic vol] 86.1 fL Normal 82.0-98.0 [facility] Comment on above: Order Comment: No: D o not add to previous draw Performed By: #### 5 102, 19980 #### [facility] [place] [address] [place] [id number], [facility] Nucleated RBC/100 WBC (Bld) [Ratio] 0 % Normal 0-0 [facility] Comment on above: Order Comment: No: D o not add to previous draw Performed By: #### 5 010, 60600 #### [facility] [place] [address] [place] [address], [facility] PLAT CNT 887 10*3/uL High 150-[address] [facility] Comment on above: Order Comment: No: D o not add to previous draw Performed By: #### 5 010, 71377 #### [facility] [place] [address] [place] [address], [facility] RBC (Bld) [#/Vol] 3.10 10*6/uL Low 3.80-5.00 [facility] Comment on above: Order Comment: No: D o not add to previous draw Performed By: #### 5 102, 12004 #### [facility] [place] [address] [place] [address], [facility] WBC (Bld) [#/Vol] 8.29 10*3/uL Normal 4.00-10.60 [facility] Comment on above: Order Comment: No: D o not add to previous draw Performed By: #### 5 3, 76162 #### [facility] [place] [address] [place] [address], [facility] CPKon 07-12-2019 CK [Catalytic activity/Vol] 14 U/L Low 30-223 [facility] Comment on above: Performed By: #### 4 1000, 16291, 54146, 69022, 00274, 72335, 05543 #### [facility] [place] [address] [place] [address], [facility] MAGNESIUM BLOODon 07-12-2019 Magnesium [Mass/Vol] 2.1 mg/dL Normal 1.9-2.7 [facility] Comment on above: Order Comment: No: D o not add to previous draw Performed By: #### 4 1000, 57887, 95823, 49977, 60130, 46378, 24157 #### [facility] [place] [address] [place] [address], [facility] PROTHROMBIN TIMEon 9 INR Coag (PPP) [Relative time] 1.02 {INR} Normal 0.91-1.16 [facility] Comment on above: Order Comment: No: D o not add to previous draw Result Comment: ACCC P RECOMMENDED INR FOR WARFARIN THERAPY ------- ------- CONDITION INR PROPHYLAXIS OF VENOUS THROMBOSIS 2-3 (HIGH-RISK SURGERY) TREATMENT OF VENOUS THROMBOSIS 2-3 TREATMENT OF PULMONARY EMBOLISM 2-3 PREVENTION OF SYSTEMIC EMBOLISM: 2-3 ACUTE MYOCARDIAL INFARCTION TISSUE HEART VALVES VALVULAR HEART DISEASE ATRIAL FIBRILLATION RECURRENT SYSTEMIC EMBOLISM MECHANICAL HEART VALVE 2.5-3.5 FROM: ORAL ANTICOAGULANTS. MECHANISM OF ACTION, CLINICAL EFFECTIVENESS, AND OPTIMAL THERAPEUTIC RANGE. CHEST 1995;108:231S-246S. Performed By: #### 4 999, 37778, 76719, 15626, 33437, 38678, 46925 #### [facility] [place] [address] [facility] [place] [address], [facility] PT Coag (PPP) [Time] 13.4 s Normal 12.3-14.8 [facility] Comment on above: Order Comment: No: D o not add to previous draw Result Comment: ALL RESULTS MUST BE INTERPRETED WITH RESPECT TO BLOOD DRAWING ARTIFACT OR DILUTION ERROR OF ANTICOAGULANT AT THE TIME OF SAMPLING. Performed By: #### 4 1000, 78347, 56786, 72302, 61663, 57233, 78621 #### [facility] [place] [address] [place] [address], [facility] INR Coag (PPP) [Relative time] 1.03 {INR} Normal 0.91-1.16 [facility] Comment on above: Order Comment: No: D o not add to previous draw Result Comment: ACCC P RECOMMENDED INR FOR WARFARIN THERAPY ------- ------- CONDITION INR PROPHYLAXIS OF VENOUS THROMBOSIS 2-3 (HIGH-RISK SURGERY) TREATMENT OF VENOUS THROMBOSIS 2-3 TREATMENT OF PULMONARY EMBOLISM 2-3 PREVENTION OF SYSTEMIC EMBOLISM: 2-3 ACUTE MYOCARDIAL INFARCTION TISSUE HEART VALVES VALVULAR HEART DISEASE ATRIAL FIBRILLATION RECURRENT SYSTEMIC EMBOLISM MECHANICAL HEART VALVE 2.5-3.5 FROM: ORAL ANTICOAGULANTS. MECHANISM OF ACTION, CLINICAL EFFECTIVENESS, AND OPTIMAL THERAPEUTIC RANGE. CHEST 1995;108:231S-246S. Performed By: #### 5 0103, 10398 #### [facility] [place] [address] [place] [address], [facility] PT Coag (PPP) [Time] 13.5 s Normal 12.3-14.8 [facility] Comment on above: Order Comment: No: D o not add to previous draw Result Comment: ALL RESULTS MUST BE INTERPRETED WITH RESPECT TO BLOOD DRAWING ARTIFACT OR DILUTION ERROR OF ANTICOAGULANT AT THE TIME OF SAMPLING. Performed By: #### 5 0103, 83464 #### [facility] [place] [address] [place] [address], [place] TYPE AND SCREENon 07-12-2019 ABO INTERPRETATION O Normal [facility] Comment on above: Performed By: #### 5 0103, 50877 #### [facility] [place] [address] [place] [address], [place] RH INTERPRETATION Negative Normal [facility] Comment on above: Performed By: #### 5 0103, 24294 #### [facility] [place] [address] [place] [address], [facility] *BLOOD CULTUREon 07-11-2019 Bacteria identified Cx Nom (Bld) Clinical Report: (D) Specimen: BLOOD CULTURE Collected: 07/11/2019 03:05 Status: Final Last Updated: 07/16/2019 07:54 (1) Right ac CULT RES (Final) No Growth Day 5 Normal [facility] Comment on above: Order Comment: Right ac Performed By: #### 3 0313 #### [facility] [place] [address] [place] [address], [facility] Bacteria identified Cx Nom (Bld) Clinical Report: (D) Specimen: BLOOD CULTURE Collected: 07/11/2019 03:04 Status: Final Last Updated: 07/16/2019 07:54 (1) Left wrist CULT RES (Final) No Growth Day 5 Normal [facility] Comment on above: Order Comment: Left wrist Performed By: #### 5 0103, 06336 #### [facility] [place] [address] [place] [address], [facility] BASIC METABOLIC PANELon 110 Calcium [Mass/Vol] 8.6 mg/dL Normal 8.6-10.3 [facility] Comment on above: Order Comment: No: D o not add to previous draw Performed By: #### 4 1000, 35798, 90972, 00179, 58450, 91084, 90330 #### [facility] [place] [address] [place] [address], [place] Chloride [Moles/Vol] 98 mmol/L Normal 98-107 [facility] Comment on above: Order Comment: No: D o not add to previous draw Performed By: #### 4 1000, 72334, 42075, 15231, 24903, 58387, 76026 #### [facility] [place] [address] [place] [address], [place] CO2 [Moles/Vol] 27 mmol/L Normal 21-31 [facility] Comment on above: Order Comment: No: D o not add to previous draw Performed By: #### 4 1000, 70646, 22946, 53110, 32746, 07743, 92051 #### [facility] [place] [address] [place] [address], [place] Creatinine [Mass/Vol] 0.61 mg/dL Normal 0.60-1.20 [facility] Comment on above: Order Comment: No: D o not add to previous draw Performed By: #### 4 1000, 40220, 23145, 05615, 80569, 84318, 48705 #### [facility] [place] [address] [place] [address], [place] GFR/1.73 sq M predicted among blacks MDRD (S/P/Bld) [Vol rate/Area] mL/min/{1.73_m2} Normal >60 [facility] Comment on above: Order Comment: No: D o not add to previous draw Result Comment: Calc ulation may not be valid for patients over 70 years Performed By: #### 4 1000, 83734, 17488, 59000, 01233, 23944, 43052 #### [facility] [place] [address] [place] [address], [facility] GFR/1.73 sq M predicted among non-blacks MDRD (S/P/Bld) [Vol rate/Area] mL/min/{1.73_m2} Normal >60 [facility] Comment on above: Order Comment: No: D o not add to previous draw Result Comment: Calc ulation may not be valid for patients over 70 years Performed By: #### 4 1000, 10971, 85770, 17053, 68345, 50047, 11806 #### [facility] [place] [address] [place] [address], [place] Glucose [Mass/Vol] 91 mg/dL Normal 70-100 [facility] Comment on above: Order Comment: No: D o not add to previous draw Performed By: #### 4 1000, 91559, 13162, 18607, 51404, 96553, 02242 #### [facility] [place] [address] [place] [address], [facility] Potassium [Moles/Vol] 3.5 mmol/L Normal 3.5-5.1 [facility] Comment on above: Order Comment: No: D o not add to previous draw Performed By: #### 4 1000, 00486, 63605, 87435, 17997, 06550, 24567 #### [facility] [place] [address] [place] [address], [facility] Sodium [Moles/Vol] 133 mmol/L Low 136-145 [facility] Comment on above: Order Comment: No: D o not add to previous draw Performed By: #### 4 1000, 38962, 18413, 70711, 80047, 73817, 02345 #### [facility] [place] [address] [place] [address], [facility] Urea nitrogen [Mass/Vol] 11 mg/dL Normal 7-25 [facility] Comment on above: Order Comment: No: D o not add to previous draw Performed By: #### 4 1000, 78276, 55218, 72262, 43375, 45808, 35833 #### [facility] [place] [address] BNP (B-TYPE NATRIURETIC PEPT MIKE)on 07-11-2019 Natriuretic peptide B (Bld) [Mass/Vol] 107 pg/mL High 0-[address] [facility] Comment on above: Order Comment: This order is a replacement of the rejected order with accession [id number]. Result Comment: Give n the appropriate clinical setting a BNP result of >100 pg/mL indicates congestive heart failure. Performed By: #### 5 0103, 07548 #### [facility] [place] [address] [place] [address], [facility] C REACTIVE PROTEINon 019 CRP [Mass/Vol] 355.0 mg/L High 0.0-7.0 [facility] Comment on above: Order Comment: Yes: Add to Previous draw if able Performed By: #### 5 010, 45659 #### [facility] [place] [address] [facility] [place] [address], [facility] CBC W/DIFFon 07-11-2019 ABS BASOPHILS 0.1 10*3/uL Normal 0.0-0.2 [facility] Comment on above: Performed By: #### 5 010, 05574 #### [facility] [place] [address] ABS IMM GRANS 0.2 10*3/uL Normal 0.0-0.2 [facility] Comment on above: Performed By: #### 5 102, 73235 #### [facility] [place] [address] ABS NEUTROPHILS 4.9 10*3/uL Normal 1.6-7.6 [facility] Comment on above: Performed By: #### 5 102, 08386 #### [facility] [place] [address] [facility] Basophils/100 WBC (Bld) 0.8 % Normal 0.0-1.0 [facility] Comment on above: Performed By: #### 5 102, 06575 #### [facility] [place] [address] [facility] [place] [address], [facility] Eosinophils (Bld) [#/Vol] 0.4 10*3/uL Normal 0.0-0.5 [facility] Comment on above: Performed By: #### 5 102, 53333 #### [facility] [place] [address] [facility] [place] [address], [facility] Eosinophils/100 WBC (Bld) 5.2 % Normal 0.0-6.0 [facility] Comment on above: Performed By: #### 5 102, 57730 #### [facility] [place] [address] Erythrocyte distribution width (RBC) [Ratio] 14.3 % Normal 11.5-15.0 [facility] Comment on above: Performed By: #### 5 102, 95466 #### [facility] [place] [address] Hematocrit (Bld) [Volume fraction] 29.1 % Low 36.0-45.0 [facility] Comment on above: Performed By: #### 5 102, 40302 #### [facility] [place] [address] Hemoglobin (Bld) [Mass/Vol] 9.0 g/dL Low 12.0-15.0 [facility] Comment on above: Performed By: #### 5 102, 93831 #### [facility] [place] [address] IMMATURE GRANS 2.2 % High 0.0-1.0 [facility] Comment on above: Performed By: #### 102, 18729 #### [facility] [place] [address] Lymphocytes (Bld) [#/Vol] 1.4 10*3/uL Normal 1.2-4.0 [facility] Comment on above: Performed By: #### 5 102, 56789 #### [facility] [place] [address] Lymphocytes/100 WBC (Bld) 18.2 % Low 20.0-45.0 [facility] Comment on above: Performed By: #### 5 102, 97596 #### [facility] [place] [address] MCH (RBC) [Entitic mass] 26.9 pg Low 27.0-33.0 [facility] Comment on above: Performed By: #### 102, 15080 #### [facility] [place] [address] [place] [address], [facility] MCHC (RBC) [Mass/Vol] 30.9 g/dL Low 32.0-35.0 [facility] Comment on above: Performed By: #### 5 102, 41912 #### [facility] [place] [address] [place] [address], [facility] MCV (RBC) [Entitic vol] 86.9 fL Normal 82.0-98.0 [facility] Comment on above: Performed By: #### 102, 25288 #### [facility] [place] [address] [place] [address], [facility] Monocytes (Bld) [#/Vol] 0.9 10*3/uL Normal 0.1-1.0 [facility] Comment on above: Performed By: #### 102, 45791 #### [facility] [place] [address] [place] [address], [facility] MONOS 11.3 % Normal 5.0-12.0 [facility] Comment on above: Performed By: #### 5 102, 88458 #### [facility] [place] [address] [place] [address], [facility] Neutrophils/100 WBC (Bld) 62.3 % Normal 40.0-72.0 [facility] Comment on above: Performed By: #### 5 102, 75967 #### [facility] [place] [address] [place] [address], [facility] Nucleated RBC/100 WBC (Bld) [Ratio] 0 % Normal 0-0 [facility] Comment on above: Performed By: #### 5 102, 63857 #### [facility] [place] [address] [place] [address], [facility] PLAT CNT 873 10*3/uL High 150-[address] [facility] Comment on above: Performed By: #### 5 0103, 92803 #### [facility] [place] [address] [place] [address], [facility] RBC (Bld) [#/Vol] 3.35 10*6/uL Low 3.80-5.00 [facility] Comment on above: Performed By: #### 5 0103, 96008 #### [facility] [place] [address] [place] [address], [facility] WBC (Bld) [#/Vol] 7.85 10*3/uL Normal 4.00-10.60 [facility] Comment on above: Performed By: #### 5 0103, 03793 #### [facility] [place] [address] CPKon 07-11-2019 CK [Catalytic activity/Vol] 23 U/L Low 30-223 [facility] Comment on above: Performed By: #### 4 1000, 66384, 79333, 49480, 30044, 40511, 94492 #### [facility] [place] [address] [facility] FERRITINon 07-11-2019 Ferritin [Mass/Vol] 110 ng/mL Normal 11-307 [facility] Comment on above: Performed By: #### 4 1000, 33668, 59414, 72532, 15647, 10975, 03247 #### [facility] [place] [address] [facility] HIP RIGHT 1 OR 2 VWS WITH PE LVISon 07-11-2019 HIP RIGHT 1 OR 2 VWS WITH PELVIS [facility] Department of Radiology [address] [place] [address] ======== Patient Name: EMY CHEATHAM : 1945 Sex: F Age: Race: White Pt. Location: [id number] Patient Status: I Ordered Date: 07/11/2019 10:50:00 AM Completed Date: 07/11/2019 11:52 AM Requesting Provider: ARIN ALFONSO Attending Provider: ELFEGO SIMMS Report Copy To: Signs & Symptoms: Pain ( specify Location) History: See Comments Comments: Hardware Evaluation Exam: HIP RIGHT 1 OR 2 VWS WITH PELVIS ======== HIP RIGHT 1 OR 2 VWS WITH PELVIS 07/11/2019 11:52 AM EST SIGNS AND SYMPTOMS: Pain ( specify Location) TECHNOLOGIST COMMENTS: Patient complains of right hip pain. History of right hip surgery in 2017. QUESTION FOR THE RADIOLOGIST: Hardware Evaluation PROTOCOL: AP(PA) and Lateral views were obtained. COMPARISON: February 12, 2018 FINDINGS: Soft tissues: Bones: Postoperative changes along the right hip Joints: Right total hip revision Prior fusion of L4-L5 Anchors along the superior iliac spines and the right pubis Mild left hip arthritis IMPRESSION: Revision of the right total hip arthroplasty in satisfactory alignment with interval removal of the trochanteric hardware and cerclage wires Electronically signed by:Amandeep Mccormack. Transcribed by: [email or web address], User Resident: Electronically Signed by: AMANDEPE MCCORMACK @ 07/11/2019 12:33 PM Normal [facility] Comment on above: Order Comment: Hardw are Evaluation MAGNESIUM BLOODon 07-11-2019 Magnesium [Mass/Vol] 1.7 mg/dL Low 1.9-2.7 [facility] Comment on above: Order Comment: No: D o not add to previous draw Performed By: #### 4 1000, 85736, 49320, 89994, 11123, 66344, 29122 #### [facility] [place] [address] MYOGLOBINon 07-11-2019 Myoglobin [Mass/Vol] 21 ng/mL Normal 0-90 [facility] Comment on above: Result Comment: A DO UBLING OF VALUES FROM SERIAL BLOOD COLLECTIONS (1 - 2 HOURS APART) IS MORE INDICATIVE OF A M.I. THAN THE ABSOLUTE VALUE. Performed By: #### 4 1000, 37476, 87913, 68571, 65669, 40173, 56544 #### [facility] [place] [address] PHOSPHORUS BLOODon 9 Phosphate [Mass/Vol] 3.3 mg/dL Normal 2.5-5.0 [facility] Comment on above: Order Comment: No: D o not add to previous draw Performed By: #### 4 1000, 14137, 76732, 78997, 84458, 15248, 17409 #### [facility] [place] [address] [place] [address], [facility] RBC'S 2 UNITSon 07-11-2019 CROSSMATCH INTERP 1 COMP Normal [facility] Comment on above: Performed By: #### 5 0103, 20239 #### [facility] [place] [address] [facility] [place] [address], [facility] CROSSMATCH INTERP 2 COMP Normal [facility] Comment on above: Performed By: #### 5 0103, 45194 #### [facility] [place] [address] [place] [address], [facility] PRODUCT CODE 1 E0336 Normal [facility] Comment on above: Performed By: #### 5 0103, 81199 #### [facility] [place] [address] [facility] [place] [address], [facility] PRODUCT CODE 2 E0336 Normal [facility] Comment on above: Performed By: #### 5 0103, 67489 #### [facility] [place] [address] [facility] [place] [address], [facility] PRODUCT STATUS 1 RE Normal [facility] Comment on above: Result Comment: Resu lt changed by IF on 07/12/2019 12:53. The previous value was XM. Result changed by IF on 07/12/2019 16:13. The previous value was IS. Result changed by IF on 07/13/2019 11:24. The previous value was XM. Result changed by IF on 07/13/2019 11:31. The previous value was XX. Performed By: #### 5 0103, 85940 #### [facility] [place] [address] [place] [address], [facility] PRODUCT STATUS 2 PT Normal [facility] Comment on above: Result Comment: Resu lt changed by IF on 07/12/2019 12:53. The previous value was XM. Result changed by IF on 07/12/2019 16:13. The previous value was IS. Result changed by IF on 07/13/2019 14:26. The previous value was XM. Result changed by IF on 07/14/2019 00:30. The previous value was IS. Performed By: #### 5 0103, [id number] #### [facility] [place] [address] [place] [address], [facility] UNIT ABO 1 O Normal [facility] Comment on above: Performed By: #### 5 0103, [id number] #### [facility] [place] [address] [place] [address], [place] UNIT ABO 2 O Normal [facility] Comment on above: Performed By: #### 5 0103, [id number] #### [facility] [place] [address] [place] [address], [place] UNIT ID 1 [id number] Normal [facility] Comment on above: Performed By: #### 5 0103, [id number] #### [facility] [place] [address] [place] [address], [place] UNIT ID 2 [id number] Normal [facility] Comment on above: Performed By: #### 5 102, [id number] #### [facility] [place] [address] [place] [address], [facility] UNIT RH 1 Negative Normal [facility] Comment on above: Performed By: #### 5 010, [id number] #### [facility] [place] [address] [place] [address], [facility] UNIT RH 2 Negative Normal [facility] Comment on above: Performed By: #### 5 010, [id number] #### [facility] [place] [address] [place] [address], [facility] SEDIMENTATION RATEon 019 SED RATE 101 mm/hr High 0-20 [facility] Comment on above: Performed By: #### 5 010, [id number] #### [facility] [place] [address] TIBC- INCLUDES IRONon 2018 FE SATURATION 7 % Low 20-50 [facility] Comment on above: Performed By: #### 4 1000, 27328, 28948, 42044, 20904, 05605, 48808 #### [facility] [place] [address] Iron [Mass/Vol] 13 ug/dL Low 50-212 [facility] Comment on above: Performed By: #### 4 1000, 41295, 42959, 89876, 74522, 38742, 24623 #### [facility] [place] [address] [place] [address], [facility] TIBC 191 mcg/dL Low 250-450 [facility] Comment on above: Performed By: #### 4 1000, 58550, 47703, 70052, 21383, 18201, 30953 #### [facility] [place] [address] [place] [id number], [facility] UIBC 178 mcg/dL Normal 155-355 [facility] Comment on above: Performed By: #### 4 1000, 92774, 25210, 11177, 94636, 60351, 79625 #### [facility] [place] Blossom CONNOR. [address] Otheron 09-18-2000 CONVERTED ELECTRONIC SIGNATURE MICHAEL HEART M.D., PATHOLOGIST (Electronic signature on file) Final Signed Out: 09/18/2000 15:59 [facility] CONVERTED FINAL DIAGNOSIS TISSUE FROM ABDOMINAL WALL, EXCISION - FIBROADIPOSE TISSUE WITH HEMORRHAGE. ASSOCIATED SUTURE MATERIAL AND SYNTHETIC MESH-LIKE MATERIAL. [facility] CONVERTED ORDERING PROVIDER Ordering Provider: DRE OCONNELL [facility] Otheron 04-18-2000 CONVERTED ELECTRONIC SIGNATURE LUZ MARINA ACEVES M.D., PATHOLOGIST (Electronic signature on file) Final Signed Out: 04/18/2000 12:24 [facility] CONVERTED ORDERING PROVIDER Ordering Provider: DRE OCONNELL [facility] Granulocytes/100 WBC (Bld) A) LYMPH NODE, INDRA HEPATIS, EXCISION - REACTIVE LYMPH NODE WITH SMALL LIPOGRANULOMAS. NEGATIVE FOR MALIGNANCY. B) STOMACH, DISTAL GASTRIC REMNANT, BIOPSY - SEVERE CHRONIC GASTRITIS. SEE COMMENT. C) STOMACH, SUBTOTAL GASTRECTOMY - SEVERE DIFFUSE CHRONIC GASTRITIS. SEE COMMENT. COMMENT: There is no evidence of helicobacter pylori-like organisms in either the distal gastric remnant biopsy or the subtotal gastrectomy specimen. An Alcian blue/PAS stain is reviewed on the distal gastric remnant biopsy[facility] FINAL DIAGNOSIS LEFT BREAST, CORE BIOPSY - DENSE FIBROSIS WITH FOCAL MICROCALCIFICATIONS. NEGATIVE FOR MALIGNANCY. COMMENT - Histologic sections demonstrate dense fibrosis and duct ectasia with focal microcalcifications. The specimen may represent portions of an old hyalinized fibroadenoma or merely a dense fibrosis associated with fibrocystic change. There is no evidence of malignancy. [facility] CONVERTED ORDERING PROVIDER Ordering Provider: LUCHO CERVANTES [facility] Thyroidon 06-01-1999 TSH Jeniffer LOGAN M.D., PATHOLOGIST (Electronic signature on file) Final Signed Out: 06/01/1999 13:30 [facility] Encounters Encounter Date Encounter Type Care Provider Facility Start: 12-14-2022 ambulatory Facility:Arvind Nieto Start: 10-04-2022 End: 10-06-[address] NASREEN MARY . Facility: Start: 08-04-2022 End: 08-07-[address] NASREEN MARY . Facility:[facility] Start: 01-21-2022 End: 01-25-[address] NASREEN MARY . Facility: Start: 10-05-2021 End: 10-05-2021 ambulatory Helene Mainarney Other [place] Other Start: 10-05-2021 Telephone encounter Helene Carlson [facility] Start: 07-11-2019 End: 07-17-2019 Evaluation and management of inpatient ELFEGO MENDEZ Facility:[facility] Start: 09-15-2000 End: 09-15-2000 Patient encounter procedure Dre Oconnell Work Phone: [facility] Start: 09-15-2000 Results Only Dre hiens Work Phone: [facility] Start: 04-16-2000 End: 04-16-2000 Patient encounter procedure Dre Oconnell Work Phone: [facility] Start: 04-16-2000 Results Only Dre Ángel hines Work Phone: [facility] Start: 05-31-1999 End: 05-31-1999 Patient encounter procedure Lucho Cervantes Work Phone: [facility] Start: 05-31-1999 Results Only Lucho Stoddard i Work Phone: [facility] Procedures Date Procedure Procedure Detail Performing Clinician Start: 07-13-2019 TRANSFUSE NONAUT RED BLOOD CELLS IN PERIPH VEIN, PERC SOY R PETER Start: 07-12-2019 DRAINAGE OF RIGHT HI P JOINT, PERCUTANEOUS APPROACH, DIAGN SOY R PETER Start: 07-12-2019 EXCISION OF RIGHT UP PER FEMUR, OPEN APPROACH SOY R PETER Start: 07-12-2019 INTRODUCTION OF OTH ANTI-INFECT INTO MUSCLE, PERC APPROACH SOY R PETER Start: 07-12-2019 Antibody screen ELFEGO SIMMS Comment on above: Performed By: #### 5 0103, [id number] #### [address] Start: 09-15-2000 CONVERTED SURGICAL PATHOLOGY Dre Oconnell Work Phone: Start: 04-16-2000 CONVERTED SURGICAL PATHOLOGY Dre Oconnell Work Phone: Start: 05-31-1999 CONVERTED SURGICAL PATHOLOGY Lucho Cervantes Work Phone: Immunizations Immunization Date Immunization Notes Care Provider Hilton mtz 05-22-2018 influenza, high dose seasonal, preservative-free Helene Carlson Other [facility] Other 06-20-2014 pneumococcal polysaccharide vaccine, 23 valent Helene Carlson Other [facility] Other Payers Date Payer Category Payer Medicare [id number] 1961 Medicare [id number] 1945 Unknown [id number] 1945 Unknown [id number] 1945 Unknown [id number] [id number] 1945 Unknown [id number] [id number] Private Health Insurance [id number] [id number] Social History Date Type Detail Facility Tobacco smoking status NHIS Unknown if ev er smoked [facility] Sex Assigned At Not on file [facility] Sex Assigned At Sex Assigned At Bir th [facility] Other Discharge summary note 10-04-2022 Note Date & Type Note Facility 10-04-2022 Note Discharge Date: 11/2022 HISTORY OF PRESENT ILLNESS: The patient was evaluated at the alf, found to have bilateral pneumonia with status asthmaticus. She was brought to the emergency room, was also found to have acute right sided heart failure with multiple medical problems, and was admitted. PAST MEDICAL HISTORY: As in History and Physical. SIGNIFICANT PHYSICAL EXAM FINDINGS: Noted in the History and Labs. HOSPITAL COURSE: Patient was admitted, started on aggressive pulmonary toilet, IV antibiotics pending cultures and IV steroids. In addition, patient was given Lasix 40 mg. After 24 hours, she was started on spironolactone 50 mg twice a day and given another dose of Lasix. She had good urinary output. Her breathing did improve. Cultures are negative at this point. She was changed over to levofloxacin and oral steroids and did well with that, and she was transferred back to the alf. She will continue on the oral antibiotics and steroids, and proper use was explained, and I will follow her up at the alf. DISCHARGE DIAGNOSIS: 1. Bilateral pneumonia. 2. Status asthmaticus. 3. Acute right side congestive heart failure. 4. Hypertension. 5. GERD. 6. Generalized muscle weakness. 7. Failure to thrive. 8. Complex regional pain syndrome right lower limb. 9. 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 10. History of peptic ulcer disease with chronic GI bleed. 11. Hypothyroidism. 12. Neurogenic bladder. 13. Atrial fibrillation. 14. Chronic kidney disease stage 3. [facility] Evaluation note Note Date & Type Note Facility Evaluation note No Information [facility] [employer] Other History general Narrative - Reported Note Date & Type Note Facility History general Narrative - Reported Type Medical History thyroid disease Medical History osteoarthritis Medical History Gout Surgical History Arthodesis RT MF Surgical History hysterectomy Surgical History back surgery Surgical History thoracic outlet rt Surgical History Injection Tendon Sheath, Ligame nt Surgical History THR Surgical History :Hammer toe RT Pinning with fus ion Surgical History stomach stapled Surgical History hernia repair Surgical History shoulder arthroscopy-right/left Surgical History Arthroscopy Shoulder-BL Surgical History knee replacement-right Surgical History right hip replacement Surgical History tummy tuck Surgical History breast reduction Surgical History :cyst on liver removed Surgical History RT Knee replacement Surgical History Pinning & fusion,LT toe Surgical History Appendectomy Surgical History veins strip 2012 Surgical History Arthrodesis RIF Surgical History Procedure:Carpal ramy danielle release;Disease: b/l Surgical History Procedure:Cholecystectomy;Disea se: Surgical History Procedure:Gastric bypass;Diseas e: Surgical History Procedure:hammertoe correction 2-4 LT;Disease: 2011 Surgical History Procedure:fusion;Dis ease:arthritis MIddle finger RT Surgical History Procedure:Arthroscopy Knee rt Surgical History Procedure:excision;D isease:Bone spur right foot 2010 Surgical History back surgery 06/15/14 Surgical History RT hip bursectomy 06/16/15 Surgical History bloot clot surgery 07/21/15 Surgical History Right hip replacement 02/15/2017 Surgical History hammertoe correction 2,3,[address] olsen 01-08-18 Surgical History RT oophorectomy Surgical History total RT hip replacement 2017 Hospitalization History see above [facility] Other Summary Purpose Family History No Family History Records FoundNo Family History Records FoundNo Family History Records FoundNo Family History Records Found Advance Directives No Advanced Directives Records FoundNo Advanced Directives Records FoundNo Advanced Directives Records FoundNo Advanced Directives Records Found Hospital Course Note MR#: [id number] [facility] Pt. Name: Emy Cheatham Admitted: 07/11/2019 Discharged: 07/17/2019 Date of : 1945 Physician: Giovana Ponce MD DISCHARGE SUMMARY PRINCIPAL DIAGNOSES: 1. Osteomyelitis, right prosthetic hip. 2. Acute blood loss anemia. SECONDARY DIAGNOSES: Gout, osteoarthritis, hypothyroidism, and urinary stress incontinence. IMAGING: The patient had CAT scan of the hip prior to coming to us to the hospital outpatient and read as large fluid collection lateral to right hip extending to the skin surface containing tiny air bubbles suspicious for infectious fluid collection 11.4 x 16.1 x 7.1 cm. The patient also had a hip x-ray, which read as postop changes along the right hip and the impression was revision of the right total hip arthroplasty in satisfactory alignment with interval removal of the trochanteric hardware and cerclage wires. HOSPITAL COURSE: 1. Osteomyelitis, right hip. Again, the patient was admitted from outside [facility] (more content not included)... Additional Source Comments INFORMATION SOURCE (unrecogn ized section and content) DATE CREATED AUTHOR 08/09/2019 [facility] DATE CREATED AUTHOR AUTHOR'S ORGANIZ ATION 12/25/2021 [facility] DATE CREATED AUTHOR AUTHOR'S ORGANIZ ATION 11/04/2022 [facility] DATE CREATED AUTHOR AUTHOR'S ORGANIZ ATION 12/16/2022 [facility] Source Comments (unrecognize d section and content) In the event this informatio n is protected by the Federal Confidentiality of Alcohol and Drug Abuse Patient Records regulations: The Federal rules restrict any use of the information to criminally investigate or prosecute any alcohol or drug abuse patient.[facility] the event this information is protected by the Federal Confidentiality of Alcohol and Drug Abuse Patient Records regulations: The Federal rules restrict any use of the information to criminally investigate or prosecute any alcohol or drug abuse patient.[facility] the event this information is protected by the Federal Confidentiality of Alcohol and Drug Abuse Patient Records regulations: The Federal rules restrict any use of the information to criminally investigate or prosecute any alcohol or drug abuse patient.[facility] REASON FOR VISIT (unrecogniz ed section and content) refill FOR RECORDS PERTAINING TO PATIENTS WHO ARE OR HAVE BEEN ENROLLED IN A CHEMICAL DEPENDENCY/SUBSTANCEABUSE PROGRAM, SOME INFORMATION MAY BE OMITTED. This clinical summary was aggregated from multiple sources. Caution should be exercised in using it in the provision of clinical care. This summary normalizes information from multiple sources, and as a consequence, information in this document may materially change the coding, format and clinical context of patient data. In addition, data may be omitted in some cases. CLINICAL DECISIONS SHOULD BE BASED ON THE PRIMARY CLINICAL RECORDS. [employer]. provides no warranty or guarantee of the accuracy or completeness of information in this document.
--- NOTE | 2024-05-13 19:44 | ED.CHESTPAI1 ---
HPI - Chest Pain General Chief Complaint: Chest Pain Stated Complaint: Chest PAIN Time Seen by Provider: 05/13/24 19:29 Source: patient, EMR and other Source comment: squad Mode of arrival: ambulance History of Present Illness HPI narrative: group home patient discharged 2 days ago after neg workup for pleuritic chest pain is returned with complaint of chest pain. Per nursing the report was the patient was hypotensive and hypoxic. Patient arrives hypertensive and pulse ox 96% RA. Patient states she has chest pain that comes and goes. During exam she also complains of abdominal pain. No history of vomiting or fever. Patient is poor historian and gives slow answers Related Data Home Medications ?Medication ?Instructions ?Recorded ?Confirmed acetaminophen 325 mg tablet (Aphen) 650 mg PO DAILY 06/12/23 05/11/24 aluminum-mag hydroxide-simethicone 5 ml PO Q4H PRN indigestion 06/12/23 05/11/24 200 mg-200 mg-20 mg/5 mL oral susp (Advanced Antacid-Antigas) aspirin 81 mg tablet,delayed 81 mg PO DAILY 06/12/23 05/11/24 release (Adult Low Dose Aspirin) budesonide-formoterol HFA 160 2 inh inhalation BID 06/12/23 05/11/24 mcg-4.5 mcg/actuation aerosol inhaler (Breyna) calcium carbonate 600 mg-vitamin 1 tab PO BID 06/12/23 05/11/24 D3 10 mcg (400 unit) tablet (Calcium 600 + D(3)) ergocalciferol (vitamin D2) 1,250 1,250 mcg PO QWEEK 06/12/23 05/11/24 mcg (50,000 unit) capsule (Drisdol) febuxostat 40 mg tablet 40 mg PO DAILY 06/12/23 05/11/24 folic acid 1 mg tablet 1 mg PO DAILY 06/12/23 05/11/24 furosemide 20 mg tablet 40 mg PO DAILY 06/12/23 05/11/24 gabapentin 300 mg capsule 300 mg PO Q8H 06/12/23 05/11/24 levothyroxine 100 mcg tablet 100 mcg PO DAILY 06/12/23 05/11/24 (Euthyrox) liothyronine 5 mcg tablet 5 mcg PO BID 06/12/23 05/11/24 metolazone 5 mg tablet 5 mg PO DAILY 06/12/23 05/11/24 multivitamin (Daily Multi-Vitamin 1 tab PO DAILY 06/12/23 05/11/24 tablet) pantoprazole 40 mg tablet,delayed 40 mg PO DAILY 06/12/23 05/11/24 release spironolactone 25 mg tablet 25 mg PO DAILY 06/12/23 05/11/24 (Aldactone) tramadol 50 mg tablet 25 mg PO Q6H PRN pain 06/12/23 05/11/24 ammonium lactate 12 % lotion 1 applic topical BID 05/11/24 05/11/24 ketoconazole 2 % topical cream 1 applic topical BID 05/11/24 05/11/24 nystatin 100,000 unit/gram topical 1 applic topical BID PRN skin 05/11/24 05/11/24 powder ([facility]) irritation trazodone 100 mg tablet 125 mg PO DAILY 05/11/24 05/11/24 Allergies Allergy/AdvReac Type Severity Reaction Status Date / Time allopurinol Allergy Unknown Unknown Verified 05/13/24 19:35 codeine Allergy Unknown Unknown Verified 05/13/24 19:35 adhesive tape AdvReac Unknown Unknown Verified 05/13/24 19:35 diazepam [From Valium] AdvReac Unknown Unknown Verified 05/13/24 19:35 morphine AdvReac Unknown Unknown Verified 05/13/24 19:35 prochlorperazine AdvReac Unknown Unknown Verified 05/13/24 19:35 [From Compazine] Review of Systems ROS Status of ROS other (poor historian) [facility] Medical History (Updated 05/14/24 @ 00:36 by Sony Odell MD) Macrocytic anemia ?D53.9 - Nutritional anemia, unspecified (ICD-10) Prolonged immobilization ?Z74.09 - Other reduced mobility (ICD-10) Afib ?I48.91 - Unspecified atrial fibrillation (ICD-10) CKD stage 3a, GFR 45-59 ml/min ?N18.31 - Chronic kidney disease, stage 3a (ICD-10) (HFpEF) heart failure with preserved ejection fraction ?I50.30 - Unspecified diastolic (congestive) heart failure (ICD-10) Major depressive disorder ?F32.9 - Major depressive disorder, single episode, unspecified (ICD-10) 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 - Nontoxic goiter, unspecified (ICD-10) Hypothyroid ?E03.9 - Hypothyroidism, unspecified (ICD-10) Neuromuscular dysfunction of bladder ?N31.9 - Neuromuscular dysfunction of bladder, unspecified (ICD-10) Gout ?M10.9 - Gout, unspecified (ICD-10) Fibromyalgia ?M79.7 - Fibromyalgia (ICD-10) Obesity ?E66.9 - Obesity, unspecified (ICD-10) Disc degeneration, lumbar ?M51.36 - Other intervertebral disc degeneration, lumbar region (ICD-10) Lymphedema ?I89.0 - Lymphedema, not elsewhere classified (ICD-10) Pulmonary edema ?J81.1 - Chronic pulmonary edema (ICD-10) Kidney disease ?N28.9 - Disorder of kidney and ureter, unspecified (ICD-10) 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 Smoking status: Never smoker Non-prescribed substance use: denies use Previous occupational history: retired Known occupational exposures/hazards: No Highest level of school completed/degree received: high school graduate Are you now , , , , never or living with a partner: don't know In a typical week, how many times do you talk on the telephone with family, friends, or neighbors: once per week How often do you get together with friends or relatives: once per week How often do you attend sikhism or shinto services: 1-3 times per year Do you belong to any clubs or organizations such as sikhism groups unions, fraternal or athletic groups, or school groups: no Total score: 0 Score interpretation: A score of less than or equal to 1 indicates the most socially isolated. Little interest or pleasure in doing things: not at all Feeling down, depressed, or hopeless: not at all Feel stressed/tense/nervous/anxious/difficulty sleeping: not at all Due to disability, difficulty making decisions: No Do you think of yourself as: straight/heterosexual Gender Identity: female Exam Constitutional Vital Signs, click to edit/add: Last Vital Signs Temp 98 F 05/13/24 19:28 Pulse 75 05/13/24 19:50 Resp 14 05/13/24 19:50 BP 131/53 05/13/24 21:30 Pulse Ox 99 05/13/24 21:44 O2 Del Method Room Air 05/13/24 19:43 Common normals: no apparent distress, alert and well nourished HENMT Common normals: normocephalic and head/scalp atraumatic Eye Common normals: conjunctivae normal Chest Other: chest wall tender and reproduces symptoms Respiratory Common normals: normal respiratory effort, no retractions and no use of accessory muscles Cardio Common normals: regular rate, regular rhythm, S1 normal heart sound and S2 normal heart sound GI Other: distended and mildly tender Extremity Other: chronic bilat lower ext edema Neuro Sensorium/orientation: awake, alert and other (parkinson tremor) Course Vital Signs Vital signs: Vital Signs Temperature 98 F 05/13/24 19:28 Pulse Rate 84 05/13/24 19:28 Respiratory Rate 18 05/13/24 19:28 Blood Pressure 152/79 H 05/13/24 19:28 Pulse Oximetry 96 05/13/24 19:28 Oxygen Delivery Method Room Air 05/13/24 19:28 Temperature 98 F 05/13/24 19:28 Pulse Rate 75 05/13/24 19:50 Respiratory Rate 14 05/13/24 19:50 Blood Pressure 131/53 05/13/24 21:30 Pulse Oximetry 99 05/13/24 21:44 Oxygen Delivery Method Room Air 05/13/24 19:43 MDM - Chest Pain MDM Narrative Medical decision making narrative: patient just discharged from hospital a couple of days ago after admission for chest pain. Workup neg. Now returned to ER from group home with complaint of chest pain and reported hypotension and hypoxia. Arrives hypertensive and RA pulse ox 96%. No respiratory distress. left chest wall tender and reproduces symptoms. She complained of abdominal pain. Mild tenderness of the abdominal wall. CT with findings of abdominal wall edema. cxray with cardiomegaly with mild vascular congestion. No ariella edema. She also has chronic edema of her lower ext. labs with CKD unchanged from recent visit. patient troponin neg. Lab Data Labs: Lab Results 05/13/24 05/13/24 Range/Units 19:55 22:16 WBC 7.3 (4.0-11.0) 10^3/uL RBC 2.62 L (4.20-5.40) 10^6/uL Hgb 9.2 L (12.0-16.0) g/dL Hct 28.3 L (36.0-48.0) % MCV 108.0 H (81.0-99.0) fL MCH 35.1 H (26.7-34.0) pg MCHC 32.5 (29.9-35.2) g/dL RDW 15.9 H (11.0-15.0) % Plt Count 645 H (150-450) 10^3/uL MPV 11.0 (9.5-13.5) fL Seg Neuts % (Manual) 52.0 (43.0-75.0) Lymphocytes % (Manual) 19.0 L (20.5-60.0) % Monocytes % (Manual) 16.0 H (1.7-12.0) % Eosinophils % (Manual) 11.0 H (0.9-7.0) % Basophils % (Manual) 2.0 (0.2-2.0) % Neutrophils # (Manual) 3.79 (1.4-6.5) 10^3/uL Lymphocytes # (Manual) 1.38 (1.20-3.80) 10^3/uL Monocytes # (Manual) 1.16 H (0.30-0.80) 10^3/uL Eosinophils # (Manual) 0.80 H (0.00-0.70) 10^3/uL Basophils # (Manual) 0.14 H (0.00-0.10) 10^3/uL Macrocytosis 1+ Sodium 139 (136-145) mmol/L Potassium 3.2 L (3.5-5.1) mmol/L Chloride 99 (98-107) mmol/L Carbon Dioxide 33.3 H (21.0-32.0) mmol/L Anion Gap 9.9 BUN 52.0 H (7.0-18.0) mg/dL Creatinine 2.34 H (0.55-1.02) mg/dL Est GFR ( Amer) 24 L (>=60) Est GFR (Non-Af Amer) 20 L (>=60) BUN/Creatinine Ratio 22.2 Glucose 83 (74-106) mg/dL Calcium 9.1 (8.5-10.1) mg/dL Troponin I High Sens 8.3 17.9 (4.0-51.3) pg/mL Imaging Data Abdominal x-ray: Radiologist's impression: ITS Impressions Chest X-Ray 05/13/24 19:41 IMPRESSION: 1. Expiratory chest. No consolidation. 2. Cardiomegaly with probable mild pulmonary vascular congestion. No ariella pulmonary edema. Electronically authenticated by: JONATHAN CABRAL Date: 05/13/2024 20:21 Abdomen/Pelvis CT 05/13/24 19:42 IMPRESSION: 1. No acute process in the abdomen or pelvis by limited noncontrast CT. 2. Stable postsurgical changes as described above including evidence of hepaticojejunostomy with associated pneumobilia. 3. Hepatomegaly. 4. Subcutaneous edema in the body wall, and small fat-containing supraumbilical ventral hernia with diastasis of the rectus abdominus muscles. Electronically authenticated by: NAHUM SAHU Date: 05/13/2024 21:01 Discharge Plan Discharge Chief Complaint: Chest Pain Clinical Impression: Acute chest wall pain Patient Disposition: Home, Self-Care Prescriptions / Home Meds: No Action aspirin [Adult Low Dose Aspirin] 81 mg tablet,delayed release (DR/EC) 81 mg PO DAILY calcium carbonate-vitamin D3 [Calcium 600 + D(3)] 600 mg-10 mcg (400 unit) tablet 1 tab PO BID febuxostat 40 mg tablet 40 mg PO DAILY folic acid 1 mg tablet 1 mg PO DAILY furosemide 20 mg tablet 40 mg PO DAILY gabapentin 300 mg capsule 300 mg PO Q8H levothyroxine [Euthyrox] 100 mcg tablet 100 mcg PO DAILY liothyronine 5 mcg tablet 5 mcg PO BID multivitamin [Daily Multi-Vitamin] Tablet 1 tab PO DAILY tramadol 50 mg tablet 25 mg PO Q6H PRN (Reason: pain) ergocalciferol (vitamin D2) [Drisdol] 1,250 mcg (50,000 unit) capsule 1,250 mcg PO QWEEK Rx Instructions: on sunday alum-mag hydroxide-simeth [Advanced Antacid-Antigas] 200-200-20 mg/5 mL suspension 5 ml PO Q4H PRN (Reason: indigestion) budesonide-formoterol [Breyna] 160-4.5 mcg/actuation HFA aerosol inhaler 2 inh inhalation BID acetaminophen [Aphen] 325 mg tablet 650 mg PO DAILY pantoprazole 40 mg tablet,delayed release (DR/EC) 40 mg PO DAILY spironolactone [Aldactone] 25 mg tablet 25 mg PO DAILY metolazone 5 mg tablet 5 mg PO DAILY Rx Instructions: 40 minutes before Lasix ammonium lactate 12 % lotion 1 applic topical BID ketoconazole 2 % cream 1 applic topical BID nystatin [Nyamyc] 100,000 unit/gram powder 1 applic topical BID PRN (Reason: skin irritation) trazodone 100 mg tablet 125 mg PO DAILY Print Language: Kiswahili Instructions: Chest Wall Pain (ED) Referrals: PEPE BOWER DO [Primary Care Provider] - 1 week
[2024-05-13 20:05] LABS: Hematocrit 28.3 % (36.0-48.0); Hemoglobin 9.2 g/dL (12.0-16.0); Mean Corpuscular HGB Conc 32.5 g/dL (29.9-35.2); Mean Corpuscular Hemoglobin 35.1 pg (26.7-34.0); Platelet Count 645 10^3/uL (150-450); Red Blood Count 2.62 10^6/uL (4.20-5.40); Red Cell Distribution Width 15.9 % (11.0-15.0); White Blood Count 7.3 10^3/uL (4.0-11.0)
[2024-05-13 20:23] LABS: Anion Gap 9.9; BUN Creatinine Ratio 22.2; Calcium 9.1 mg/dL (8.5-10.1); Carbon Dioxide 33.3 mmol/L (21.0-32.0); Chloride 99 mmol/L (98-107); Estimated GFR (African America 24 (>=60); Estimated GFR (Non-African Ame 20 (>=60); Glucose 83 mg/dL (74-106); Potassium 3.2 mmol/L (3.5-5.1); Sodium 139 mmol/L (136-145); Troponin I High Sensitivity 8.3 pg/mL (4.0-51.3)
[2024-05-13 20:28] LABS: Lymphocytes Absolute Manual 1.38 10^3/uL (1.20-3.80); Segmented Neut Absolute Manual 3.79 10^3/uL (1.4-6.5)
[2024-05-13 20:29] LABS: Basophils Abs Manual 0.14 10^3/uL (0.00-0.10); Monocytes Absolute Manual 1.16 10^3/uL (0.30-0.80)
[2024-05-13 20:32] LABS: Macrocytosis 1+
[2024-05-13 22:40] LABS: Troponin I High Sensitivity 17.9 pg/mL (4.0-51.3)
[2024-05-14] VITALS: BP 110/57
[2024-05-14 00:30] VITALS: BP 136/80
== END 2024-05-14 02:33 | disposition home or self-care (01) ==
PROVIDERS: Emergency Provider Internal Medicine; PCP Family Medicine
DX: R07.89 Other chest pain (principal); R10.9 Unspecified abdominal pain; R60.0 Localized edema; I51.7 Cardiomegaly; N18.9 Chronic kidney disease, unspecified; R16.0 Hepatomegaly, not elsewhere classified; K43.9 Ventral hernia without obstruction or gangrene
CPT/HCPCS: 36415; 71045; 74176; 80048; 84484; 85007; 85027; 93005; 99285

== ENCOUNTER 2024-11-20 22:50 | Inpatient (IN) | payer MEDICARE, MEDICAID, SELFPAY ==
[2024-11-20] VITALS (13 sets, daily range): BP systolic 65–87; BP diastolic 42–56; PULSE 87–101; RESP 14; TEMP 36.6; O2SAT 81–91
--- NOTE | 2024-11-20 22:51 | ECG_ITS ---
[facility] Test Date: 2024-11-20 Pat Name: GOSIA CHEATHAM Department: Room: - Gender: Female Mooner: : 1945 Requested By: [id number] Order Number: [id number] Reading MD: ILIANA JENKINS M.D. Measurements Intervals [place] Rate: 100 P: -[id number] GA: -[id number] QRS: 18 QRSD: 90 T: 31 QT: 348 QTc: 405 Interpretive Statements [id number] Atrial fibrillation with rapid ventricular response [id number] Nonspecific Twave abnormality, probably digitalis effect 9140 abnormal rhythm ECG Compared to ECG 05/13/2024 19:33:02 Heart rate has increased Electronically Signed On 11-21-2024 17:46:54 EDT by ILIANA JENKINS M.D.
--- OUTSIDE RECORDS SUMMARY | 2024-11-20 22:59 | XMS_ITS | CCD ---
Author Organization [facility] Care Team Providers Care Fireman Helper Name Role Phone ELFEGO SIMMS Admitting Unavailable NASREEN MARY Primary Care Unavailable PEDRO CARLSON Unavailable GIOVANA PONCE Attending Unavailable NE Procedure Practitioner Unavailab SOY Kessler Surgeon Unavailable [...] TAPE] Propensity to adverse reactions (disorder) [facility] Repository (3 sources) Codeine; Translations: [codeine] Drug Allergy [facility] Repository (3 sources) diazePAM; Translations: [Valium] Drug Allergy [facility] Repository (2 sources) Morphine; Translations: [morphine] Drug Allergy 013 [facility] Repository (4 sources) Prochlorperazine; Translations: [Compazine] Drug Allergy 013 Unknown [facility] Repository (1 source) Acetaminophen Drug Allergy Unknown [facility] Other (2 sources) Codeine Drug Allergy Unknown [facility] Other (1 source) Codeine Drug Allergy Unknown [facility] Other (1 source) Morphine Drug Allergy Hallucinations [facility] Other (2 sources) Prochlorperazine Drug Allergy Unknown [facility] Other (1 source) Tape, Permeable Adhesive Propensity to adverse reactions Unknown [facility] Other (1 source) Allopurinol Drug Allergy 014 [facility] Repository (1 source) Morphine Drug Allergy 013 [facility] Repository (1 source) Adhesive Tape; Translations: [Tape] Propensity to adverse reactions (disorder) [facility] Repository Medications Current Medications Medication Drug Class(es) [...] B12 100 MCG Orally Active Vitamin D3 [id number] UNIT/GM (1 source) Vitamin D3 75694 00 UNIT/GM Active Completed/Discontinued Medications Medication Drug [...] 10-10-2022 Chronic Other aftercare (1 source) Other nursing home (current) drug therapy; Translations: [OTH RESIDENTIAL CURRENT DRUG THERAPY] Onset: 10-10-2022 Episodic Other aftercare (1 source) custodial (current) use of aspirin; Translations: [RESIDENTIAL CURRENT USE OF ASPIRIN] Onset: 10-10-2022 Episodic [...] Test Name Value Interpretation Reference Range Facility [facility] [id number] [id number]:127 Normal [facility] CBC AUTO DIFFon 10-06-2022 BASO # 0.0 103/ul Normal 0.0-0.1 [facility] Comment on above: Performed By: #### C MP #### [facility] [address] [place] [address] Dr. Charlotte Argueta Basophils/100 WBC (Bld) 0.1 % Critically low 0.2-2.0 [facility] Comment on above: Performed By: #### C MP #### [facility] [address] [place] [address] Dr. Charlotte Argueta EO # 0.0 103/ul Normal 0.0-0.7 [facility] Comment on above: Performed By: #### C MP #### [facility] [address] [place] [address] Dr. Charlotte Argueta Eosinophils/100 WBC (Bld) 0.0 % Critically low 0.9-7.0 [facility] Comment on above: Performed By: #### C MP #### [facility] [address] [place] [address] Dr. Charlotte Argueta Erythrocyte distribution width (RBC) [Ratio] 15.4 % Critically high 11.0-15.0 [facility] Comment on above: Performed By: #### C MP #### [facility] [address] [place] [address] Dr. Charlotte Argueta Hematocrit (Bld) [Volume fraction] 26.1 % Critically low 36.0-48.0 [facility] Comment on above: Performed By: #### C MP #### [facility] [address] [place] [address] Dr. Charlotte Argueta Hemoglobin (Bld) [Mass/Vol] 9.3 g/dL Critically low 12.0-16.0 [facility] Comment on above: Performed By: #### C MP #### [facility] [address] [place] [address] Dr. Charlotte Argueta IG # 0.13 10e3/ul Critically high 0.00-0.03 [facility] Comment on above: Performed By: #### C MP #### [facility] [address] [place] [address] Dr. Charlotte Argueta IG % 1.9 % Critically high 0.0-0.5 [facility] Comment on above: Performed By: #### C MP #### [facility] [address] [place] [address] Dr. Charlotte Argueta LYMPH # 0.3 103/ul Critically low 1.2-3.8 [facility] Comment on above: Performed By: #### C MP #### [facility] [address] [place] [address] Dr. Charlotte Argueta Lymphocytes/100 WBC (Bld) 5.0 % Critically low 20.5-60.0 [facility] Comment on above: Performed By: #### C MP #### [facility] [address] [place] [address] Dr. Charlotte Argueta MANUAL DIFF REQ NO Normal [facility] Comment on above: Performed By: #### C MP #### [facility] [address] [place] [address] Dr. Charlotte Argueta MCH (RBC) [Entitic mass] 29.3 pg Normal 26.7-34.0 [facility] Comment on above: Performed By: #### C MP #### [facility] [address] [address] [address] Charlotte Argueta MCHC (RBC) [Mass/Vol] 35.6 g/dL Critically high 29.9-35.2 [facility] Comment on above: Performed By: #### C MP #### [facility] [address] [place] [address] Dr. Charlotte Argueta MCV (RBC) [Entitic vol] 82.3 fL Normal 81.0-99.0 [facility] Comment on above: Performed By: #### C MP #### [facility] [address] [place] [address] Dr. Charlotte Argueta MONO # 0.6 103/ul Normal 0.3-0.8 [facility] Comment on above: Performed By: #### C MP #### [facility] [address] [place] [address] Dr. Charlotte Argueta Monocytes/100 WBC (Bld) 9.4 % Normal 1.7-12.0 [facility] Comment on above: Performed By: #### C MP #### [facility] [address] [place] [address] Dr. Charlotte Argueta NEUT # 5.7 103/ul Normal 1.4-6.5 [facility] Comment on above: Performed By: #### C MP #### [facility] [address] [place] [address] Dr. Charlotte Argueta Neutrophils/100 WBC (Bld) 83.6 % Critically high 43.0-75.0 [facility] Comment on above: Performed By: #### C MP #### [facility] [address] [place] [address] Dr. Charlotte Argueta Platelet mean volume (Bld) [Entitic vol] 9.7 fL Normal 9.5-13.5 [facility] Comment on above: Performed By: #### C MP #### [facility] [address] [place] [address] Dr. Charlotte Argueta PLT 410 103/ul Normal 150-450 [facility] Comment on above: Performed By: #### C MP #### [facility] [address] [address] [address] Charlotte Argueta RBC 3.17 106/ul Critically low 4.20-5.40 [facility] Comment on above: Performed By: #### C MP #### [facility] [address] [address] [address] Charlotte Argueta WBC 6.8 103/ul Normal 4.0-11.0 [facility] Comment on above: Performed By: #### C MP #### [facility] [address] [place] [address] Dr. Charlotte Argueta PROF 14(COMP METB)on 023 Albumin [Mass/Vol] 2.9 g/dL Critically low 3.4-5.0 [facility] Comment on above: Performed By: #### T SH, FT3 #### [facility] [address] [place] [address] Dr. Charlotte Argueta Albumin/Globulin [Mass ratio] 0.8 {ratio} Normal [facility] Comment on above: Performed By: #### T SH, FT3 #### [facility] [address] [place] [address] Dr. Charlotte Argueta ALP [Catalytic activity/Vol] 79 U/L Normal 46-116 [facility] Comment on above: Performed By: #### T SH, FT3 #### [facility] [address] [place] [address] Dr. Charlotte Argueta ALT [Catalytic activity/Vol] 13 U/L Critically low 14-59 [facility] Comment on above: Performed By: #### T SH, FT3 #### [facility] [address] [place] [address] Dr. Charlotte Argueta Anion gap [Moles/Vol] 12.2 mmol/L Normal [facility] Comment on above: Performed By: #### T SH, FT3 #### [facility] [address] [place], [place] [id number] Dr. Charlotte Argueta AST [Catalytic activity/Vol] 13 U/L Critically low 15-37 [facility] Comment on above: Performed By: #### T SH, FT3 #### [facility] [address] [place] [address] Dr. Charlotte Argueta Bilirubin [Mass/Vol] 0.2 mg/dL Normal 0.2-1.0 [facility] Comment on above: Performed By: #### T SH, FT3 #### [facility] [address] [place] [address] Dr. Charlotte Argueta Calcium [Mass/Vol] 8.5 mg/dL Normal 8.5-10.1 [facility] Comment on above: Performed By: #### T SH, FT3 #### [facility] [address] [place] [address] Dr. Charlotte Argueta Chloride [Moles/Vol] 102 mmol/L Normal 98-107 [facility] Comment on above: Performed By: #### T SH, FT3 #### [facility] [address] [place] [address] Dr. Charlotte Argueta CO2 [Moles/Vol] 26.4 mmol/L Normal 21.0-32.0 [facility] Comment on above: Performed By: #### T SH, FT3 #### [facility] [address] [place] [address] Dr. Charlotte Argueta Creatinine [Mass/Vol] 1.25 mg/dL Critically high 0.55-1.02 [facility] Comment on above: Performed By: #### T SH, FT3 #### [facility] [address] [place] [address] Dr. Charlotte Argueta EGFR-AF BARBADIAN 50 mL/min/1.73m2 Critically low >=60 [facility] Comment on above: Performed By: #### T SH, FT3 #### [facility] [address] [place] [address] Dr. Charlotte Argueta EGFR-NON AF BARBADIAN 41 mL/min/1.73m2 Critically low >=60 [facility] Comment on above: Performed By: #### T SH, FT3 #### [facility] [address] [place] [address] Dr. Charlotte Argueta Globulin (S) [Mass/Vol] 3.5 g/dL Normal [facility] Comment on above: Performed By: #### T MARY, FT3 #### [facility] [address] [place] [address] Dr. Charlotte Argueta Glucose [Mass/Vol] 217 mg/dL Critically high 74-106 [facility] Comment on above: Performed By: #### T MARY, FT3 #### [facility] [address] [place] [address] Dr. Charlotte Argueta Potassium [Moles/Vol] 3.6 mmol/L Normal 3.5-5.1 [facility] Comment on above: Performed By: #### T MARY, FT3 #### [facility] [address] [place] [address] Dr. Charlotte Argueta Protein [Mass/Vol] 6.4 g/dL Normal 6.4-8.2 [facility] Comment on above: Performed By: #### T MARY, FT3 #### [facility] [address] [place] [address] Dr. Charlotte Argueta Sodium [Moles/Vol] 137 mmol/L Normal 136-145 [facility] Comment on above: Performed By: #### T MARY, FT3 #### [facility] [address] [place] [address] Dr. Charlotte Argueta Urea nitrogen [Mass/Vol] 21.0 mg/dL Critically high 7.0-18.0 [facility] Comment on above: Performed By: #### T MARY, FT3 #### [facility] [address] [place] [address] Dr. Charlotte Argueta Urea nitrogen/Creatinine [Mass ratio] 16.8 mg/mg Normal [facility] Comment on above: Performed By: #### T MARY, FT3 #### [facility] [address] [place] [address] Dr. Charlotte Argueta CBC AUTO DIFFon 10-05-2022 BASO # 0.0 103/ul Normal 0.0-0.1 [facility] Comment on above: Performed By: #### C MREP #### [facility] [address] [address] [address] Charlotte Argueta Basophils/100 WBC (Bld) 0.2 % Normal 0.2-2.0 [facility] Comment on above: Performed By: #### C MREP #### [facility] [address] [address] [address] Charlotte Argueta EO # 0.0 103/ul Normal 0.0-0.7 [facility] Comment on above: Performed By: #### C MREP #### [facility] [address] [place] [address] Dr. Charlotte Argeuta Eosinophils/100 WBC (Bld) 0.0 % Critically low 0.9-7.0 [facility] Comment on above: Performed By: #### C MREP #### [facility] [address] [place] [address] Dr. Charlotte Argueta Erythrocyte distribution width (RBC) [Ratio] 16.6 % Critically high 11.0-15.0 [facility] Comment on above: Performed By: #### C MREP #### [facility] [address] [place] [address] Dr. Charlotte Argueta Hematocrit (Bld) [Volume fraction] 30.6 % Critically low 36.0-48.0 [facility] Comment on above: Performed By: #### C MREP #### [facility] [address] [place] [address] Dr. Charlotte Argueta Hemoglobin (Bld) [Mass/Vol] 9.5 g/dL Critically low 12.0-16.0 [facility] Comment on above: Performed By: #### C MREP #### [facility] [address] [place] [address] Dr. Charlotte Argueta IG # 0.04 10e3/ul Critically high 0.00-0.03 [facility] Comment on above: Performed By: #### C MREP #### [facility] [address] [place] [address] Dr. Charlotte Argueta IG % 0.8 % Critically high 0.0-0.5 [facility] Comment on above: Performed By: #### C MREP #### [facility] [address] [address] [address] Charlotte Argueta LYMPH # 0.4 103/ul Critically low 1.2-3.8 [facility] Comment on above: Performed By: #### C MREP #### [facility] [address] [address] [address] Charlotte Argueta Lymphocytes/100 WBC (Bld) 7.6 % Critically low 20.5-60.0 [facility] Comment on above: Performed By: #### C MREP #### [facility] [address] [address] [address] Charlotte Argueta MANUAL DIFF REQ NO Normal [facility] Comment on above: Performed By: #### C MREP #### [facility] [address] [address] [address] Charlotte Argueta MCH (RBC) [Entitic mass] 29.7 pg Normal 26.7-34.0 [facility] Comment on above: Performed By: #### C MREP #### [facility] [address] [address] [address] Charlotte Argueta MCHC (RBC) [Mass/Vol] 31.0 g/dL Normal 29.9-35.2 [facility] Comment on above: Performed By: #### C MREP #### [facility] [address] [address] [address] Charlotte Argueta MCV (RBC) [Entitic vol] 95.6 fL Normal 81.0-99.0 [facility] Comment on above: Performed By: #### C MREP #### [facility] [address] [address] [address] Charlotte Argueta MONO # 0.2 103/ul Critically low 0.3-0.8 [facility] Comment on above: Performed By: #### C MREP #### [facility] [address] [address] [address] Charlotte Argueta Monocytes/100 WBC (Bld) 3.5 % Normal 1.7-12.0 [facility] Comment on above: Performed By: #### C MREP #### [facility] [address] [address] [address] Charlotte Argueta NEUT # 4.5 103/ul Normal 1.4-6.5 [facility] Comment on above: Performed By: #### C MREP #### [facility] [address] [address] [address] Charlotte Argueta Neutrophils/100 WBC (Bld) 87.9 % Critically high 43.0-75.0 [facility] Comment on above: Performed By: #### C MREP #### [facility] [address] [address] [address] Charlotte Argueta Platelet mean volume (Bld) [Entitic vol] 11.0 fL Normal 9.5-13.5 [facility] Comment on above: Performed By: #### C MREP #### [facility] [address] [address] [address] Charlotte Argueta PLT 441 103/ul Normal 150-450 [facility] Comment on above: Performed By: #### C MREP #### [facility] [address] [address] [address] Charlotte Argueta RBC 3.20 106/ul Critically low 4.20-5.40 [facility] Comment on above: Performed By: #### C MREP #### [facility] [address] [address] [address] Charlotte Argueta WBC 5.2 103/ul Normal 4.0-11.0 [facility] Comment on above: Performed By: #### C MREP #### [facility] [address] [address] [address] Charlotte Argueta CULTURE URINEon 10-05-2022 CULTURE URINE Culture Observations : NO GROWTH. Normal [facility] Comment on above: Performed By: #### T SH, FT3 #### [facility] [address] [address] [address] Charoltte Argueta PROF 14(COMP METB)on 023 Albumin [Mass/Vol] 2.8 g/dL Critically low 3.4-5.0 [facility] Comment on above: Performed By: #### C MP #### [facility] [address] [address] [address] Charlotte Argueta Albumin/Globulin [Mass ratio] 0.8 {ratio} Normal [facility] Comment on above: Performed By: #### C MP #### [facility] [address] [address] [address] Charlotte Argueta ALP [Catalytic activity/Vol] 92 U/L Normal 46-116 [facility] Comment on above: Performed By: #### C MP #### [facility] [address] [address] [address] Charlotte Argueta ALT [Catalytic activity/Vol] 14 U/L Normal 14-59 [facility] Comment on above: Performed By: #### C MP #### [facility] [address] [place] [address] Dr. Charlotte Argueta Anion gap [Moles/Vol] 11.0 mmol/L Normal [facility] Comment on above: Performed By: #### C MP #### [facility] [address] [place] [address] Dr. Charlotte Argueta AST [Catalytic activity/Vol] 14 U/L Critically low 15-37 [facility] Comment on above: Performed By: #### C MP #### [facility] [address] [place] [address] Dr. Charlotte Argueta Bilirubin [Mass/Vol] 0.2 mg/dL Normal 0.2-1.0 [facility] Comment on above: Performed By: #### C MP #### [facility] [address] [place] [address] Dr. Charlotte Argueta Calcium [Mass/Vol] 8.7 mg/dL Normal 8.5-10.1 [facility] Comment on above: Performed By: #### C MP #### [facility] [address] [address] [address] Charlotte Argueta Chloride [Moles/Vol] 102 mmol/L Normal 98-107 [facility] Comment on above: Performed By: #### C MP #### [facility] [address] [address] [address] Charlotte Argueta CO2 [Moles/Vol] 28.0 mmol/L Normal 21.0-32.0 [facility] Comment on above: Performed By: #### C MP #### [facility] [address] [address] [address] Charlotte Argueta Creatinine [Mass/Vol] 1.09 mg/dL Critically high 0.55-1.02 [facility] Comment on above: Performed By: #### C MP #### [facility] [address] [address] [address] Charlotte Argueta EGFR-AF BARBADIAN 59 mL/min/1.73m2 Critically low >=60 [facility] Comment on above: Performed By: #### C MP #### [facility] [address] [address] [address] Charlotte Argueta EGFR-NON AF BARBADIAN 49 mL/min/1.73m2 Critically low >=60 [facility] Comment on above: Performed By: #### C MP #### [facility] [address] [address] [address] Charlotte Argueta Globulin (S) [Mass/Vol] 3.7 g/dL Normal [facility] Comment on above: Performed By: #### C MP #### [facility] [address] [address] [address] Charlotte Argueta Glucose [Mass/Vol] 177 mg/dL Critically high 74-106 [facility] Comment on above: Performed By: #### C MP #### [facility] [address] [address] [address] Charlotte Argueta Potassium [Moles/Vol] 4.0 mmol/L Normal 3.5-5.1 [facility] Comment on above: Performed By: #### C MP #### [facility] [address] [address] [address] Charlotte Argueta Protein [Mass/Vol] 6.5 g/dL Normal 6.4-8.2 [facility] Comment on above: Performed By: #### C MP #### [facility] [address] [address] [address] Charlotte Argueta Sodium [Moles/Vol] 137 mmol/L Normal 136-145 [facility] Comment on above: Performed By: #### C MP #### [facility] [address] [place] [address] Dr. Charlotte Argueta Urea nitrogen [Mass/Vol] 20.0 mg/dL Critically high 7.0-18.0 [facility] Comment on above: Performed By: #### C MP #### [facility] [address] [place] [address] Dr. Charlotte Argueta Urea nitrogen/Creatinine [Mass ratio] 18.3 mg/mg Normal [facility] Comment on above: Performed By: #### C MP #### [facility] [address] [place] [address] Dr. Charlotte Argueta UA (CLEAN/CATCH) PROMOTION OFFICER/MICRO I F IND.on 10-05-2022 Bilirubin Ql (U) Negative Normal NEGATIVE [facility] Comment on above: Performed By: #### C MREP #### [facility] [address] [place] [address] Dr. Charlotte Argueta Clarity (U) CLEAR Normal CLEAR [facility] Comment on above: Performed By: #### C MREP #### [facility] [address] [place] [address] Dr. Charlotte Argueta Color (U) LT. YELLOW Normal YELLOW [facility] Comment on above: Performed By: #### C MREP #### [facility] [address] [place] [address] Dr. Charlotte Argueta Glucose Ql (U) Negative Normal NEGATIVE [facility] Comment on above: Performed By: #### C MREP #### [facility] [address] [place] [address] Dr. Charlotte Argueta Hemoglobin Ql (U) Negative Normal NEGATIVE [facility] Comment on above: Performed By: #### C MREP #### [facility] [address] [place] [address] Dr. Charlotte Argueta Ketones Ql (U) Negative Normal NEGATIVE [facility] Comment on above: Performed By: #### C MREP #### [facility] [address] [address] [address] Charlotte Argueta LEUKOCYTES SMALL Abnormal NEGATIVE [facility] Comment on above: Performed By: #### C MREP #### [facility] [address] [address] [address] Charlotte Argueta Nitrite Ql (U) Negative Normal NEGATIVE [facility] Comment on above: Performed By: #### C MREP #### [facility] [address] [place] [address] Dr. Charlotte Argueta pH (U) 6.0 [pH] Normal 5-9 [facility] Comment on above: Performed By: #### C MREP #### [facility] [address] [place] [address] Dr. Charlotte Argueta SPEC GRAVITY 1.015 Normal 1.005-<=1.025 [facility] Comment on above: Performed By: #### C MREP #### [facility] [address] [place] [address] Dr. Charlotte rAgueta UA PROTEIN Negative Normal NEGATIVE/ TRACE [facility] Comment on above: Performed By: #### C MREP #### [facility] [address] [place] [address] Dr. Charlotte Argueta UR MICRO IND INDICATED Normal [facility] Comment on above: Performed By: #### C MREP #### [facility] [address] [place] [address] Dr. Charlotte Argueta Urobilinogen Qn (U) 0.2 {Kathia'U}/dL Normal 0.2 - 1. 0 [facility] Comment on above: Performed By: #### C MREP #### [facility] [address] [place] [address] Dr. Charlotte Argueta URINE MICROSCOPIC ONLYon BACTERIA NONE SEEN Normal NONE SEEN [facility] Comment on above: Performed By: #### C MREP #### [facility] [address] [place] [address] Dr. Charlotte Argueta Bacteria identified Cx Nom (U) INDICATED Normal [facility] Comment on above: Performed By: #### C MREP #### [facility] [address] [place] [address] Dr. Charlotte Argueta CAST NONE SEEN Normal NONE SEEN [facility] Comment on above: Performed By: #### C MREP #### [facility] [address] [place] [address] Dr. Charlotte Argueta Crystals LM Nom (Urine sed) NONE SEEN Normal NONE SEEN [facility] Comment on above: Performed By: #### C MREP #### [facility] [address] [place] [address] Dr. Charlotte Argueta Epithelial cells LM Ql (Urine sed) RARE Normal NONE SEEN /RARE [facility] Comment on above: Performed By: #### C MREP #### [facility] [address] [place] [address] Dr. Charlotte Argueta MUCOUS NONE SEEN Normal NONE SEEN [facility] Comment on above: Performed By: #### C MREP #### [facility] [address] [place] [address] Dr. Charlotte Argueta RBC 0-2 Normal 0-2 [facility] Comment on above: Performed By: #### C MREP #### [facility] [address] [place] [address] Dr. Charlotte Argueta WBC 2-5 Abnormal NONE SEEN [facility] Comment on above: Performed By: #### C MREP #### [facility] [address] [place] [address] Dr. Charlotte Argueta BNPon 10-04-2022 Natriuretic peptide B (Bld) [Mass/Vol] 4509.0 pg/mL Critically high <=1,800.0 [facility] Comment on above: Performed By: #### B LDCX1 #### [facility] [address] [place] [address] Dr. Charlotte Argueta CBC AUTO DIFFon 10-04-2022 BASO # 0.0 103/ul Normal 0.0-0.1 [facility] Comment on above: Performed By: #### T SH, FT3 #### [facility] [address] [place] [address] Dr. Charlotte Argueta Basophils/100 WBC (Bld) 0.5 % Normal 0.2-2.0 [facility] Comment on above: Performed By: #### T SH, FT3 #### [facility] [address] [place] [address] Dr. Charlotte Argueta EO # 0.6 103/ul Normal 0.0-0.7 [facility] Comment on above: Performed By: #### T SH, FT3 #### [facility] [address] [place] [address] Dr. Charlotte Argueta Eosinophils/100 WBC (Bld) 6.9 % Normal 0.9-7.0 [facility] Comment on above: Performed By: #### T SH, FT3 #### [facility] [address] [place] [address] Dr. Charlotte Argueta Erythrocyte distribution width (RBC) [Ratio] 16.5 % Critically high 11.0-15.0 [facility] Comment on above: Performed By: #### T SH, FT3 #### [facility] [address] [place] [address] Dr. Charlotte Argueta Hematocrit (Bld) [Volume fraction] 30.9 % Critically low 36.0-48.0 [facility] Comment on above: Performed By: #### T SH, FT3 #### [facility] [address] [place] [address] Dr. Charlotte Argueta Hemoglobin (Bld) [Mass/Vol] 9.8 g/dL Critically low 12.0-16.0 [facility] Comment on above: Performed By: #### T SH, FT3 #### [facility] [address] [place] [address] Dr. Charlotte Argueta IG # 0.05 10e3/ul Critically high 0.00-0.03 [facility] Comment on above: Performed By: #### T SH, FT3 #### [facility] [address] [place] [address] Dr. Charlotte Argueta IG % 0.6 % Critically high 0.0-0.5 [facility] Comment on above: Performed By: #### T SH, FT3 #### [facility] [address] [place] [address] Dr. Charlotte Argueta LYMPH # 1.9 103/ul Normal 1.2-3.8 [facility] Comment on above: Performed By: #### T SH, FT3 #### [facility] [address] [place] [address] Dr. Charlotte Argueta Lymphocytes/100 WBC (Bld) 23.5 % Normal 20.5-60.0 [facility] Comment on above: Performed By: #### T SH, FT3 #### [facility] [address] [place] [address] Dr. Charlotte Argueta MANUAL DIFF REQ NO Normal [facility] Comment on above: Performed By: #### T SH, FT3 #### [facility] [address] [place] [address] Dr. Charlotte Argueta MCH (RBC) [Entitic mass] 30.2 pg Normal 26.7-34.0 [facility] Comment on above: Performed By: #### T SH, FT3 #### [facility] [address] [place] [address] Dr. Charlotte Argueta MCHC (RBC) [Mass/Vol] 31.7 g/dL Normal 29.9-35.2 [facility] Comment on above: Performed By: #### T SH, FT3 #### [facility] [address] [place] [address] Dr. Charlotte Argueta MCV (RBC) [Entitic vol] 95.4 fL Normal 81.0-99.0 [facility] Comment on above: Performed By: #### T SH, FT3 #### [facility] [address] [place] [address] Dr. Charlotte Argueta MONO # 1.0 103/ul Critically high 0.3-0.8 [facility] Comment on above: Performed By: #### T SH, FT3 #### [facility] [address] [place] [address] Dr. Charlotte Argueta Monocytes/100 WBC (Bld) 12.4 % Critically high 1.7-12.0 [facility] Comment on above: Performed By: #### T SH, FT3 #### [facility] [address] [place] [address] Dr. Charlotte Argueta NEUT # 4.5 103/ul Normal 1.4-6.5 [facility] Comment on above: Performed By: #### T SH, FT3 #### [facility] [address] [place] [address] Dr. Charlotte Argueta Neutrophils/100 WBC (Bld) 56.1 % Normal 43.0-75.0 [facility] Comment on above: Performed By: #### T MARY, FT3 #### [facility] [address] [place] [address] Dr. Charlotte Argueta Platelet mean volume (Bld) [Entitic vol] 10.9 fL Normal 9.5-13.5 [facility] Comment on above: Performed By: #### Andi HERNANDEZ, FT3 #### [facility] [address] [place] [address] Dr. Charlotte Argueta PLT 449 103/ul Normal 150-450 [facility] Comment on above: Performed By: #### T MARY, FT3 #### [facility] [address] [place] [address] Dr. Charlotte Argueta RBC 3.24 106/ul Critically low 4.20-5.40 [facility] Comment on above: Performed By: #### T MARY, FT3 #### [facility] [address] [place] [address] Dr. Charlotte Argueta WBC 8.1 103/ul Normal 4.0-11.0 [facility] Comment on above: Performed By: #### T MARY, FT3 #### [facility] [address] [place] [address] Dr. Charlotte Argueta CTA CHEST WO W [...] by: PIERCE MURGUIA Date: 2022-10-04 21:41 Normal [facility] CULTURE BLOODon 10-04-2022 Microscopic examination of blood, culture Culture Observations: NO GROWTH AT 5 DAYS. Normal [facility] Comment on above: Performed By: #### B LDCX2 #### [facility] [address] [place] [address] Dr. Charlotte Argueta Microscopic examination of blood, culture Culture Observations: NO GROWTH AT 5 DAYS. Normal [facility] Comment on above: Performed By: #### B LDCX1 #### [facility] [address] [place] [address] Dr. Charlotte Argueta D-DIMERon 10-04-2022 D-DIMER 1.22 mg/L FEU Critically high <=0.59 [facility] Comment on above: Performed By: #### B LDCX1 #### [facility] [address] [place] [address] Dr. Charlotte Argueta D-DIMER COMMENTS SEE BELOW Normal [facility] Comment on above: Result Comment: Incr eases [...] hospitalization. Performed By: #### B LDCX1 #### [facility] [address] [place] [address] Dr. Charlotte Argueta LACTATE/LACTIC ACIDon 2022 Lactate [Moles/Vol] 3.1 mmol/L Critically high 0.4-1.9 [facility] Comment on above: Performed By: #### C MP #### [facility] [address] [place] [address] Dr. Charlotte Argueta Lactate [Moles/Vol] 0.9 mmol/L Normal 0.4-1.9 [facility] Comment on above: Performed By: #### T SH, FT3 #### [facility] [address] [place] [address] Dr. Charlotte Argueta PROF 14(COMP METB)on 023 Albumin [Mass/Vol] 2.7 g/dL Critically low 3.4-5.0 [facility] Comment on above: Performed By: #### B LDCX1 #### [facility] [address] [place] [address] Dr. Charlotte Argueta Albumin/Globulin [Mass ratio] 0.8 {ratio} Normal [facility] Comment on above: Performed By: #### B LDCX1 #### [facility] [address] [place] [address] Dr. Charlotte Argueta ALP [Catalytic activity/Vol] 86 U/L Normal 46-116 [facility] Comment on above: Performed By: #### B LDCX1 #### [facility] [address] [place] [address] Dr. Charlotte Argueta ALT [Catalytic activity/Vol] 13 U/L Critically low 14-59 [facility] Comment on above: Performed By: #### B LDCX1 #### [facility] [address] [address] [address] Charlotte Argueta Anion gap [Moles/Vol] 13.2 mmol/L Normal [facility] Comment on above: Performed By: #### B LDCX1 #### [facility] [address] [address] [address] Charlotte Argueta AST [Catalytic activity/Vol] 14 U/L Critically low 15-37 [facility] Comment on above: Performed By: #### B LDCX1 #### [facility] [address] [place] [address] Dr. Charlotte Argueta Bilirubin [Mass/Vol] 0.3 mg/dL Normal 0.2-1.0 [facility] Comment on above: Performed By: #### B LDCX1 #### [facility] [address] [place] [address] Dr. Charlotte Argueta Calcium [Mass/Vol] 8.5 mg/dL Normal 8.5-10.1 [facility] Comment on above: Performed By: #### B LDCX1 #### [facility] [address] [address] [address] Charlotte Argueta Chloride [Moles/Vol] 105 mmol/L Normal 98-107 [facility] Comment on above: Performed By: #### B LDCX1 #### [facility] [address] [place] [address] Dr. Charlotte Argueta CO2 [Moles/Vol] 27.5 mmol/L Normal 21.0-32.0 [facility] Comment on above: Performed By: #### B LDCX1 #### [facility] [address] [place] [address] Dr. Charlotte Argueta Creatinine [Mass/Vol] 1.11 mg/dL Critically high 0.55-1.02 [facility] Comment on above: Performed By: #### B LDCX1 #### [facility] [address] [place] [address] Dr. Charlotte Argueta EGFR-AF BARBADIAN 58 mL/min/1.73m2 Critically low >=60 [facility] Comment on above: Performed By: #### B LDCX1 #### [facility] [address] [address] [address] Charlotte Argueta EGFR-NON AF BARBADIAN 48 mL/min/1.73m2 Critically low >=60 [facility] Comment on above: Performed By: #### B LDCX1 #### [facility] [address] [address] [address] Charlotte Argueta Globulin (S) [Mass/Vol] 3.6 g/dL Normal [facility] Comment on above: Performed By: #### B LDCX1 #### [facility] [address] [address] [address] Charlotte Argueta Glucose [Mass/Vol] 85 mg/dL Normal 74-106 [facility] Comment on above: Performed By: #### B LDCX1 #### [facility] [address] [address] [address] Charltote Argueta Potassium [Moles/Vol] 3.7 mmol/L Normal 3.5-5.1 [facility] Comment on above: Performed By: #### B LDCX1 #### [facility] [address] [address] [address] Charlotte Argueta Protein [Mass/Vol] 6.3 g/dL Critically low 6.4-8.2 [facility] Comment on above: Performed By: #### B LDCX1 #### [facility] [address] [address] [address] Charlotte Argueta Sodium [Moles/Vol] 142 mmol/L Normal 136-145 [facility] Comment on above: Performed By: #### B LDCX1 #### [facility] [address] [address] [address] Charlotte Argueta Urea nitrogen [Mass/Vol] 25.0 mg/dL Critically high 7.0-18.0 [facility] Comment on above: Performed By: #### B LDCX1 #### [facility] [address] [address] [address] Charlotte Argueta Urea nitrogen/Creatinine [Mass ratio] 22.5 mg/mg Normal [facility] Comment on above: Performed By: #### B LDCX1 #### [facility] [address] [place] [address] Dr. Charlotte Argueta RESPIRATORY PANEL PLUSon Adenovirus Not detected Normal NOT DETECTED [facility] Comment on above: Performed By: #### C MP #### [facility] [address] [place] [address] Dr. Charlotte Mullen. Parapertusis Not detected Normal NOT DETECTED [facility] Comment on above: Performed By: #### C MP #### [facility] [address] [place] [address] Dr. Charlotte Mullen. Pertussis Not detected Normal NOT DETECTED [facility] Comment on above: Performed By: #### C MP #### [facility] [address] [place] [address] Dr. Charlotte Argueta Chlamydia Pneumoniae Not detected Normal NOT DETECTED [facility] Comment on above: Performed By: #### C MP #### [facility] [address] [place] [address] Dr. Charlotte Argueta Coronavirus 229E Not detected Normal NOT DETECTED [facility] Comment on above: Performed By: #### C MP #### [facility] [address] [place] [address] Dr. Charlotte Argueta Coronavirus HKU1 Not detected Normal NOT DETECTED [facility] Comment on above: Performed By: #### C MP #### [facility] [address] [place] [address] Dr. Charlotte Argueta Coronavirus NL63 Not detected Normal NOT DETECTED [facility] Comment on above: Performed By: #### C MP #### [facility] [address] [place] [address] Dr. Charlotte Argueta Coronavirus OC43 Not detected Normal NOT DETECTED [facility] Comment on above: Performed By: #### C MP #### [facility] [address] [place] [address] Dr. Charlotte Argueta Influenza A H1 2009 Not detected Normal NOT DETECTED [facility] Comment on above: Performed By: #### C MP #### [facility] [address] [place] [address] Dr. Charlotte Argueta Influenza A H3 Not detected Normal NOT DETECTED [facility] Comment on above: Performed By: #### C MP #### [facility] [address] [place] [address] Dr. Charlotte Argueta Influenza B Not detected Normal NOT DETECTED [facility] Comment on above: Performed By: #### C MP #### [facility] [address] [address] [address] Charlotte Argueta Metapneumovirus Not detected Normal NOT DETECTED [facility] Comment on above: Performed By: #### C MP #### [facility] [address] [place] [address] Dr. Charlotte Argueta Mycoplas. Pneumoniae Not detected Normal NOT DETECTED [facility] Comment on above: Performed By: #### C MP #### [facility] [address] [place] [address] Dr. Charlotte Argueta Parainfluenza 1 Not detected Normal NOT DETECTED [facility] Comment on above: Performed By: #### C MP #### [facility] [address] [place] [address] Dr. Charlotte Argueta Parainfluenza 2 Not detected Normal NOT DETECTED [facility] Comment on above: Performed By: #### C MP #### [facility] [address] [place] [address] Dr. Charlotte Argueta Parainfluenza 3 Not detected Normal NOT DETECTED [facility] Comment on above: Performed By: #### C MP #### [facility] [address] [place] [address] Dr. Charlotte Argueta Parainfluenza 4 Not detected Normal NOT DETECTED [facility] Comment on above: Performed By: #### C MP #### [facility] [address] [place] [address] Dr. Charlotte Argueta Rhino/Enterovirus Not detected Normal NOT DETECTED [facility] Comment on above: Performed By: #### C MP #### [facility] [address] [place] [address] Dr. Charlotte Argueta RP2 Header 1 RESPIRATORY PANEL: VIRUSES Normal [facility] Comment on above: Performed By: #### C MP #### [facility] [address] [place] [address] Dr. Charlotte Argueta RP2 Header 2 RESPIRATORY PANEL: BACTERIA Normal [facility] Comment on above: Performed By: #### C MP #### [facility] [address] [place] [address] Dr. Charlotte Argueta RSV Not detected Normal NOT DETECTED [facility] Comment on above: Performed By: #### C MP #### [facility] [address] [address] [address] Charlotte Argueta SARS-CoV-2 (COVID-19) RNA DANNY+probe Ql (Unsp spec) Not detected Normal NOT DETECTED [facility] Comment on above: Performed By: #### C MP #### [facility] [address] [place] [address] Dr. Charlotte Argueta TROPONIN, HIGH SENSITIVITYon 10-04-2022 HSTROP 11.5 pg/mL Normal 4.0-51.3 [facility] Comment on above: Result Comment: CUT- OFF POINTS HAVE BEEN ESTABLISHED BASED ON THE FOURTH UNIVERSAL DEFINITIONS OF MYOCARDIAL INFARCTION. THE UPPER REFERENCE LIMIT (URL) OF TROPONIN, DEFINED THE 99TH PERCENTILE OF cTnI DISTRIBUTION IN A REFERENCE POPULATION, HAS BEEN CONFIRMED THE DECISION THRESHOLD FOR [place] DIAGNOSIS. Performed By: #### B LDCX1 #### [facility] [address] [place] [address] Dr. Charlotte Argueta XR CHEST 1 Von [...] GREGORIO MCFARLAND Date: 2022-10-04 09:10 Normal [facility] CBC AUTO DIFFon 08-07-2022 BASO # 0.0 103/ul Normal 0.0-0.1 [facility] Comment on above: Performed By: #### C MREP #### [facility] [address] [place] [address] Dr. Charlotte Argueta Basophils/100 WBC (Bld) 0.5 % Normal 0.2-2.0 [facility] Comment on above: Performed By: #### C MREP #### [facility] [address] [place] [address] Dr. Charlotte Argueta EO # 0.3 103/ul Normal 0.0-0.7 [facility] Comment on above: Performed By: #### C MREP #### [facility] [address] [place] [address] Dr. Charlotte Argueta Eosinophils/100 WBC (Bld) 8.1 % Critically high 0.9-7.0 [facility] Comment on above: Performed By: #### C MREP #### [facility] [address] [place] [address] Dr. Charlotte Argueta Erythrocyte distribution width (RBC) [Ratio] 14.0 % Normal 11.0-15.0 [facility] Comment on above: Performed By: #### C MREP #### [facility] [address] [place] [address] Dr. Charlotte Argueta Hematocrit (Bld) [Volume fraction] 28.1 % Critically low 36.0-48.0 [facility] Comment on above: Performed By: #### C MREP #### [facility] [address] [place] [address] Dr. Charlotte Argueta Hemoglobin (Bld) [Mass/Vol] 8.9 g/dL Critically low 12.0-16.0 [facility] Comment on above: Performed By: #### C MREP #### [facility] [address] [place] [address] Dr. Charlotte Argueta IG # 0.01 10e3/ul Normal 0.00-0.03 [facility] Comment on above: Performed By: #### C MREP #### [facility] [address] [place] [address] Dr. Charlotte Argueta IG % 0.3 % Normal 0.0-0.5 [facility] Comment on above: Performed By: #### C MREP #### [facility] [address] [place] [address] Dr. Charlotte Argueta LYMPH # 1.2 103/ul Normal 1.2-3.8 [facility] Comment on above: Performed By: #### C MREP #### [facility] [address] [place] [address] Dr. Charlotte Argueta Lymphocytes/100 WBC (Bld) 32.3 % Normal 20.5-60.0 [facility] Comment on above: Performed By: #### C MREP #### [facility] [address] [place] [address] Dr. Charlotte Argueta MANUAL DIFF REQ NO Normal [facility] Comment on above: Performed By: #### C MREP #### [facility] [address] [place] [address] Dr. Charlotte Argueta MCH (RBC) [Entitic mass] 28.8 pg Normal 26.7-34.0 [facility] Comment on above: Performed By: #### C MREP #### [facility] [address] [place] [address] Dr. Charlotte Argueta MCHC (RBC) [Mass/Vol] 31.7 g/dL Normal 29.9-35.2 [facility] Comment on above: Performed By: #### C MREP #### [facility] [address] [place] [address] Dr. Charlotte Argueta MCV (RBC) [Entitic vol] 90.9 fL Normal 81.0-99.0 [facility] Comment on above: Performed By: #### C MREP #### [facility] [address] [place] [address] Dr. Charlotte Argueta MONO # 0.7 103/ul Normal 0.3-0.8 [facility] Comment on above: Performed By: #### C MREP #### [facility] [address] [place] [address] Dr. Charlotte Argueta Monocytes/100 WBC (Bld) 17.8 % Critically high 1.7-12.0 [facility] Comment on above: Performed By: #### C MREP #### [facility] [address] [place] [address] Dr. Charlotte Argueta NEUT # 1.5 103/ul Normal 1.4-6.5 [facility] Comment on above: Performed By: #### C MREP #### [facility] [address] [place] [address] Dr. Charlotte Argueta Neutrophils/100 WBC (Bld) 41.0 % Critically low 43.0-75.0 [facility] Comment on above: Performed By: #### C MREP #### [facility] [address] [place] [address] Dr. Charlotte Argueta Platelet mean volume (Bld) [Entitic vol] 10.4 fL Normal 9.5-13.5 [facility] Comment on above: Performed By: #### C MREP #### [facility] [address] [place] [address] Dr. Charlotte Argueta PLT 326 103/ul Normal 150-450 [facility] Comment on above: Performed By: #### C MREP #### [facility] [address] [place] [address] Dr. Charlotte Argueta RBC 3.09 106/ul Critically low 4.20-5.40 [facility] Comment on above: Performed By: #### C MREP #### [facility] [address] [place] [address] Dr. Charlotte Argueta WBC 3.7 103/ul Critically low 4.0-11.0 [facility] Comment on above: Performed By: #### C MREP #### [facility] [address] [place] [address] Dr. Charlotte Argueta PROF 14(COMP METB)on 022 Albumin [Mass/Vol] 2.6 g/dL Critically low 3.4-5.0 [facility] Comment on above: Performed By: #### C MREP #### [facility] [address] [place] [address] Dr. Charlotte Argueta Albumin/Globulin [Mass ratio] 0.8 {ratio} Normal [facility] Comment on above: Performed By: #### C MREP #### [facility] [address] [place] [address] Dr. Charlotte Argueta ALP [Catalytic activity/Vol] 67 U/L Normal 46-116 [facility] Comment on above: Performed By: #### C MREP #### [facility] [address] [place] [address] Dr. Charlotte Argueta ALT [Catalytic activity/Vol] 15 U/L Normal 14-59 [facility] Comment on above: Performed By: #### C MREP #### [facility] [address] [place] [address] Dr. Charlotte Argueta Anion gap [Moles/Vol] 11.4 mmol/L Normal [facility] Comment on above: Performed By: #### C MREP #### [facility] [address] [place] [address] Dr. Charlotte Argueta AST [Catalytic activity/Vol] 28 U/L Normal 15-37 [facility] Comment on above: Performed By: #### C MREP #### [facility] [address] [place] [address] Dr. Charlotte Argueta Bilirubin [Mass/Vol] 0.1 mg/dL Critically low 0.2-1.0 [facility] Comment on above: Performed By: #### C MREP #### [facility] [address] [place] [address] Dr. Charlotte Argueta Calcium [Mass/Vol] 7.7 mg/dL Critically low 8.5-10.1 [facility] Comment on above: Performed By: #### C MREP #### [facility] [address] [place] [address] Dr. Charlotte Argueta Chloride [Moles/Vol] 99 mmol/L Normal 98-107 [facility] Comment on above: Performed By: #### C MREP #### [facility] [address] [place] [address] Dr. Charlotte Argueta CO2 [Moles/Vol] 29.2 mmol/L Normal 21.0-32.0 [facility] Comment on above: Performed By: #### C MREP #### [facility] [address] [place] [address] Dr. Charlotte Argueta Creatinine [Mass/Vol] 1.46 mg/dL Critically high 0.55-1.02 [facility] Comment on above: Performed By: #### C MREP #### [facility] [address] [address] [address] Charlotte Argueta EGFR-AF BARBADIAN 42 mL/min/1.73m2 Critically low >=60 [facility] Comment on above: Performed By: #### C MREP #### [facility] [address] [place] [address] Dr. Charlotte Argueta EGFR-NON AF BAR[place]IAN 35 mL/min/1.73m2 Critically low >=60 [facility] Comment on above: Performed By: #### C MREP #### [facility] [address] [place] [address] Dr. Charlotte Argueta Globulin (S) [Mass/Vol] 3.4 g/dL Normal [facility] Comment on above: Performed By: #### C MREP #### [facility] [address] [place] [address] Dr. Charlotte Argueta Glucose [Mass/Vol] 110 mg/dL Critically high 74-106 T [facility] Comment on above: Performed By: #### C MREP #### [facility] [address] [place] [address] Dr. Charlotte Argueta Potassium [Moles/Vol] 3.6 mmol/L Normal 3.5-5.1 [facility] Comment on above: Performed By: #### C MREP #### [facility] [address] [place] [address] Dr. Charlotte Argueta Protein [Mass/Vol] 6.0 g/dL Critically low 6.4-8.2 [facility] Comment on above: Performed By: #### C MREP #### [facility] [address] [place] [address] Dr. Charlotte Argueta Sodium [Moles/Vol] 136 mmol/L Normal 136-145 [facility] Comment on above: Performed By: #### C MREP #### [facility] [address] [place] [address] Dr. Charlotte Argueta Urea nitrogen [Mass/Vol] 34.0 mg/dL Critically high 7.0-18.0 [facility] Comment on above: Performed By: #### C MREP #### [facility] [address] [place] [address] Dr. Charlotte Argueta Urea nitrogen/Creatinine [Mass ratio] 23.3 mg/mg Normal [facility] Comment on above: Performed By: #### C MREP #### [facility] [address] [place] [address] Dr. Charlotte Argueta CBC AUTO DIFFon 08-06-2022 BASO # 0.0 103/ul Normal 0.0-0.1 [facility] Comment on above: Performed By: #### I NFLUAB #### [facility] [address] [place] [address] Dr. Charlotte Argueta Basophils/100 WBC (Bld) 0.5 % Normal 0.2-2.0 [facility] Comment on above: Performed By: #### I NFLUAB #### [facility] [address] [place] [address] Dr. Charlotte Argueta EO # 0.1 103/ul Normal 0.0-0.7 [facility] Comment on above: Performed By: #### I NFLUAB #### [facility] [address] [place] [address] Dr. Charlotte Argueta Eosinophils/100 WBC (Bld) 1.6 % Normal 0.9-7.0 [facility] Comment on above: Performed By: #### I NFLUAB #### [facility] [address] [place] [address] Dr. Charlotte Argueta Erythrocyte distribution width (RBC) [Ratio] 14.2 % Normal 11.0-15.0 [facility] Comment on above: Performed By: #### I NFLUAB #### [facility] [address] [place] [address] Dr. Charlotte Argueta Hematocrit (Bld) [Volume fraction] 26.3 % Critically low 36.0-48.0 [facility] Comment on above: Performed By: #### I NFLUAB #### [facility] [address] [address] [address] Charlotte Argueta Hemoglobin (Bld) [Mass/Vol] 8.6 g/dL Critically low 12.0-16.0 [facility] Comment on above: Performed By: #### I NFLUAB #### [facility] [address] [address] [address] Charlotte Argueta IG # 0.01 10e3/ul Normal 0.00-0.03 [facility] Comment on above: Performed By: #### I NFLUAB #### [facility] [address] [address] [address] Charlotte Argueta IG % 0.3 % Normal 0.0-0.5 [facility] Comment on above: Performed By: #### I NFLUAB #### [facility] [address] [address] [address] Charlotte Argueta LYMPH # 1.3 103/ul Normal 1.2-3.8 [facility] Comment on above: Performed By: #### I NFLUAB #### [facility] [address] [address] [address] Charlotte Argueta Lymphocytes/100 WBC (Bld) 34.9 % Normal 20.5-60.0 [facility] Comment on above: Performed By: #### I NFLUAB #### [facility] [address] [address] [address] Charlotte Argueta MANUAL DIFF REQ NO Normal [facility] Comment on above: Performed By: #### I NFLUAB #### [facility] [address] [address] [address] Charlotte Argueta MCH (RBC) [Entitic mass] 29.6 pg Normal 26.7-34.0 [facility] Comment on above: Performed By: #### I NFLUAB #### [facility] [address] [address] [address] Charlotte Argueta MCHC (RBC) [Mass/Vol] 32.7 g/dL Normal 29.9-35.2 [facility] Comment on above: Performed By: #### I NFLUAB #### [facility] [address] [place] [address] Dr. Charlotte Argueta MCV (RBC) [Entitic vol] 90.4 fL Normal 81.0-99.0 [facility] Comment on above: Performed By: #### I NFLUAB #### [facility] [address] [place] [address] Dr. Charlotte Argueta MONO # 0.7 103/ul Normal 0.3-0.8 [facility] Comment on above: Performed By: #### I NFLUAB #### [facility] [address] [place] [address] Dr. Charlotte Argueta Monocytes/100 WBC (Bld) 18.6 % Critically high 1.7-12.0 [facility] Comment on above: Performed By: #### I NFLUAB #### [facility] [address] [place] [address] Dr. Charlotte Argueta NEUT # 1.6 103/ul Normal 1.4-6.5 [facility] Comment on above: Performed By: #### I NFLUAB #### [facility] [address] [place] [address] Dr. Charlotte Argueta Neutrophils/100 WBC (Bld) 44.1 % Normal 43.0-75.0 [facility] Comment on above: Performed By: #### I NFLUAB #### [facility] [address] [place] [address] Dr. Charlotte Argueta Platelet mean volume (Bld) [Entitic vol] 10.6 fL Normal 9.5-13.5 [facility] Comment on above: Performed By: #### I NFLUAB #### [facility] [address] [place] [address] Dr. Charlotte Argueta PLT 322 103/ul Normal 150-450 [facility] Comment on above: Performed By: #### I NFLUAB #### [facility] [address] [address] [address] Charlotte Argueta RBC 2.91 106/ul Critically low 4.20-5.40 [facility] Comment on above: Performed By: #### I NFLUAB #### [facility] [address] [address] [address] Charlotte Argueta WBC 3.7 103/ul Critically low 4.0-11.0 [facility] Comment on above: Performed By: #### I NFLUAB #### [facility] [address] [place] [address] Dr. Charlotte Argueta OCC BLD IMMUNO SCREENon OCCULT BLOOD Negative Normal NEGATIVE [facility] Comment on above: Performed By: #### I NFLUAB #### [facility] [address] [place] [address] Dr. Charlotte Argueta PROF 14(COMP METB)on 022 Albumin [Mass/Vol] 2.5 g/dL Critically low 3.4-5.0 [facility] Comment on above: Performed By: #### B LDCX1 #### [facility] [address] [place] [address] Dr. Charlotte Argueta Albumin/Globulin [Mass ratio] 0.8 {ratio} [facility] Comment on above: Performed By: #### B LDCX1 #### [facility] [address] [place] [address] Dr. Charlotte Argueta ALP [Catalytic activity/Vol] 70 U/L Normal 46-116 [facility] Comment on above: Performed By: #### B LDCX1 #### [facility] [address] [place] [address] Dr. Charlotte Argueta ALT [Catalytic activity/Vol] 10 U/L Critically low 14-59 [facility] Comment on above: Performed By: #### B LDCX1 #### [facility] [address] [place] [address] Dr. Charlotte Argueta Anion gap [Moles/Vol] 8.5 mmol/L Normal [facility] Comment on above: Performed By: #### B LDCX1 #### [facility] [address] [address] [address] Charlotte Argueta AST [Catalytic activity/Vol] 22 U/L Normal 15-37 [facility] Comment on above: Performed By: #### B LDCX1 #### [facility] [address] [address] [address] Charlotte Argueta Bilirubin [Mass/Vol] 0.1 mg/dL Critically low 0.2-1.0 [facility] Comment on above: Performed By: #### B LDCX1 #### [facility] [address] [address] [address] Charlotte Argueta Calcium [Mass/Vol] 7.7 mg/dL Critically low 8.5-10.1 [facility] Comment on above: Performed By: #### B LDCX1 #### [facility] [address] [address] [address] Charlotte Argueta Chloride [Moles/Vol] 97 mmol/L Critically low 98-107 [facility] Comment on above: Performed By: #### B LDCX1 #### [facility] [address] [address] [address] Charlotte Argueta CO2 [Moles/Vol] 31.3 mmol/L Normal 21.0-32.0 [facility] Comment on above: Performed By: #### B LDCX1 #### [facility] [address] [address] [address] Charlotte Argueta Creatinine [Mass/Vol] 1.83 mg/dL Critically high 0.55-1.02 [facility] Comment on above: Performed By: #### B LDCX1 #### [facility] [address] [address] [address] Charlotte Argueta EGFR-AF BAR[place]IAN 32 mL/min/1.73m2 Critically low >=60 [facility] Comment on above: Performed By: #### B LDCX1 #### [facility] [address] [address] [address] Charlotte Argueta EGFR-NON AF [place] 27 mL/min/1.73m2 Critically low >=60 [facility] Comment on above: Performed By: #### B LDCX1 #### [facility] [address] [place] [address] Dr. Charlotte Argueta Globulin (S) [Mass/Vol] 3.3 g/dL Normal [facility] Comment on above: Performed By: #### B LDCX1 #### [facility] [address] [place] [address] Dr. Charlotte Argueta Glucose [Mass/Vol] 105 mg/dL Normal 74-106 [facility] Comment on above: Performed By: #### B LDCX1 #### [facility] [address] [place] [address] Dr. Charlotte Argueta Potassium [Moles/Vol] 3.8 mmol/L Normal 3.5-5.1 [facility] Comment on above: Performed By: #### B LDCX1 #### [facility] [address] [place] [address] Dr. Charlotte Argueta Protein [Mass/Vol] 5.8 g/dL Critically low 6.4-8.2 [facility] Comment on above: Performed By: #### B LDCX1 #### [facility] [address] [place] [address] Dr. Charlotte Argueta Sodium [Moles/Vol] 133 mmol/L Critically low 136-145 [facility] Comment on above: Performed By: #### B LDCX1 #### [facility] [address] [place] [address] Dr. Charlotte Argueta Urea nitrogen [Mass/Vol] 40.0 mg/dL Critically high 7.0-18.0 [facility] Comment on above: Performed By: #### B LDCX1 #### [facility] [address] [place] [address] Dr. Charlotte Argueta Urea nitrogen/Creatinine [Mass ratio] 21.9 mg/mg Normal [facility] Comment on above: Performed By: #### B LDCX1 #### [facility] [address] [place] [address] Dr. Charlotte Argueta CBC AUTO DIFFon 08-05-2022 BASO # 0.0 103/ul Normal 0.0-0.1 [facility] Comment on above: Performed By: #### T SH, FT3 #### [facility] [address] [place] [address] Dr. Charlotte Argueta Basophils/100 WBC (Bld) 0.3 % Normal 0.2-2.0 [facility] Comment on above: Performed By: #### T SH, FT3 #### [facility] [address] [place] [address] Dr. Charlotte Argueta EO # 0.1 103/ul Normal 0.0-0.7 [facility] Comment on above: Performed By: #### T SH, FT3 #### [facility] [address] [place] [address] Dr. Charlotte Argueta Eosinophils/100 WBC (Bld) 0.7 % Critically low 0.9-7.0 [facility] Comment on above: Performed By: #### T MARY, FT3 #### [facility] [address] [place] [address] Dr. Charlotte Argueta Erythrocyte distribution width (RBC) [Ratio] 14.1 % Normal 11.0-15.0 [facility] Comment on above: Performed By: #### T MARY, FT3 #### [facility] [address] [place] [address] Dr. Charlotte Argueta Hematocrit (Bld) [Volume fraction] 29.1 % Critically low 36.0-48.0 [facility] Comment on above: Performed By: #### T SH, FT3 #### [facility] [address] [place] [address] Dr. Charlotte Argueta Hemoglobin (Bld) [Mass/Vol] 9.4 g/dL Critically low 12.0-16.0 [facility] Comment on above: Performed By: #### T SH, FT3 #### [facility] [address] [place] [address] Dr. Charlotte Argueta IG # 0.04 10e3/ul Critically high 0.00-0.03 [facility] Comment on above: Performed By: #### T SH, FT3 #### [facility] [address] [place] [address] Dr. Charlotte Argueta IG % 0.6 % Critically high 0.0-0.5 [facility] Comment on above: Performed By: #### T SH, FT3 #### [facility] [address] [place] [address] Dr. Charlotte Argueta LYMPH # 0.8 103/ul Critically low 1.2-3.8 [facility] Comment on above: Performed By: #### T , FT3 #### [facility] [address] [place] [address] Dr. Charlotte Argueta Lymphocytes/100 WBC (Bld) 11.1 % Critically low 20.5-60.0 [facility] Comment on above: Performed By: #### T SH, FT3 #### [facility] [address] [place] [address] Dr. Charlotte Argueta MANUAL DIFF REQ NO Normal [facility] Comment on above: Performed By: #### T , FT3 #### [facility] [address] [place] [address] Dr. Charlotte Argueta MCH (RBC) [Entitic mass] 29.2 pg Normal 26.7-34.0 [facility] Comment on above: Performed By: #### T , FT3 #### [facility] [address] [place] [address] Dr. Charlotte Argueta MCHC (RBC) [Mass/Vol] 32.3 g/dL Normal 29.9-35.2 [facility] Comment on above: Performed By: #### T , FT3 #### [facility] [address] [place] [address] Dr. Charlotte Argueta MCV (RBC) [Entitic vol] 90.4 fL Normal 81.0-99.0 [facility] Comment on above: Performed By: #### T SH, FT3 #### [facility] [address] [place] [address] Dr. Charlotte Argueta MONO # 0.5 103/ul Normal 0.3-0.8 [facility] Comment on above: Performed By: #### T SH, FT3 #### [facility] [address] [address] [address] Charlotte Argueta Monocytes/100 WBC (Bld) 7.4 % Normal 1.7-12.0 [facility] Comment on above: Performed By: #### T SH, FT3 #### [facility] [address] [place] [address] Dr. Charlotte Argueta NEUT # 5.5 103/ul Normal 1.4-6.5 [facility] Comment on above: Performed By: #### T SH, FT3 #### [facility] [address] [place] [address] Dr. Charlotte Argueta Neutrophils/100 WBC (Bld) 79.9 % Critically high 43.0-75.0 [facility] Comment on above: Performed By: #### T SH, FT3 #### [facility] [address] [place] [address] Dr. Charlotte Argueta Platelet mean volume (Bld) [Entitic vol] 10.6 fL Normal 9.5-13.5 [facility] Comment on above: Performed By: #### T SH, FT3 #### [facility] [address] [place] [address] Dr. Charlotte Argueta PLT 388 103/ul Normal 150-450 [facility] Comment on above: Performed By: #### T SH, FT3 #### [facility] [address] [place] [address] Dr. Charlotte Argueta RBC 3.22 106/ul Critically low 4.20-5.40 [facility] Comment on above: Performed By: #### T SH, FT3 #### [facility] [address] [place] [address] Dr. Charlotte Argueta WBC 6.9 103/ul Normal 4.0-11.0 [facility] Comment on above: Performed By: #### T SH, FT3 #### [facility] [address] [place] [address] Dr. Charlotte Argueta IRON AND TIBCon 08-05-2022 % SATURATION 3.9 % Normal [facility] Comment on above: Performed By: #### B LDCX1 #### [facility] [address] [place] [address] Dr. Charlotte Argueta Iron [Mass/Vol] 10.0 ug/dL Critically low 50.0-170.0 [facility] Comment on above: Performed By: #### B LDCX1 #### [facility] [address] [place] [address] Dr. Charlotte Argueta TIBC DIRECT 255.0 ug/dL Normal 250.0-450.0 [facility] Comment on above: Performed By: #### B LDCX1 #### [facility] [address] [place] [address] Dr. Charlotte Argueta PROF 14(COMP METB)on 022 Albumin [Mass/Vol] 2.8 g/dL Critically low 3.4-5.0 [facility] Comment on above: Performed By: #### T MARY, FT3 #### [facility] [address] [place] [address] Dr. Charlotte Argueta Albumin/Globulin [Mass ratio] 0.8 {ratio} Normal [facility] Comment on above: Performed By: #### T MARY, FT3 #### [facility] [address] [place] [address] Dr. Charlotte Argueta ALP [Catalytic activity/Vol] 85 U/L Normal 46-116 [facility] Comment on above: Performed By: #### T MARY, FT3 #### [facility] [address] [place] [address] Dr. Charlotte Argueta ALT [Catalytic activity/Vol] 11 U/L Critically low 14-59 [facility] Comment on above: Performed By: #### T MARY, FT3 #### [facility] [address] [place] [address] Dr. Charlotte Argueta Anion gap [Moles/Vol] 10.6 mmol/L Normal [facility] Comment on above: Performed By: #### T MARY, FT3 #### [facility] [address] [place] [address] Dr. Charlotte Argueta AST [Catalytic activity/Vol] 23 U/L Normal 15-37 [facility] Comment on above: Performed By: #### T SH, FT3 #### [facility] [address] [place] [address] Dr. Charlotte Argueta Bilirubin [Mass/Vol] 0.1 mg/dL Critically low 0.2-1.0 [facility] Comment on above: Performed By: #### T SH, FT3 #### [facility] [address] [place] [address] Dr. Charlotte Argueta Calcium [Mass/Vol] 8.3 mg/dL Critically low 8.5-10.1 [facility] Comment on above: Performed By: #### T SH, FT3 #### [facility] [address] [place] [address] Dr. Charlotte Argueta Chloride [Moles/Vol] 101 mmol/L Normal 98-107 [facility] Comment on above: Performed By: #### T SH, FT3 #### [facility] [address] [place] [address] Dr. Charlotte Argueta CO2 [Moles/Vol] 28.4 mmol/L Normal 21.0-32.0 [facility] Comment on above: Performed By: #### T SH, FT3 #### [facility] [address] [place] [address] Dr. Charlotte Argueta Creatinine [Mass/Vol] 1.65 mg/dL Critically high 0.55-1.02 [facility] Comment on above: Performed By: #### T SH, FT3 #### [facility] [address] [place] [address] Dr. Charlotte Argueta EGFR-AF [place] 36 mL/min/1.73m2 Critically low >=60 [facility] Comment on above: Performed By: #### T SH, FT3 #### [facility] [address] [place] [address] Dr. Charlotte Argueta EGFR-NON AF [place] 30 mL/min/1.73m2 Critically low >=60 [facility] Comment on above: Performed By: #### T SH, FT3 #### [facility] [address] [place] [address] Dr. Charlotte Argueta Globulin (S) [Mass/Vol] 3.7 g/dL Normal [facility] Comment on above: Performed By: #### T SH, FT3 #### [facility] [address] [place] [address] Dr. Charlotte Argueta Glucose [Mass/Vol] 99 mg/dL Normal 74-106 [facility] Comment on above: Performed By: #### T SH, FT3 #### [facility] [address] [place] [address] Dr. Charlotte Argueta Potassium [Moles/Vol] 4.0 mmol/L Normal 3.5-5.1 [facility] Comment on above: Performed By: #### T SH, FT3 #### [facility] [address] [place] [address] Dr. Charlotte Argueta Protein [Mass/Vol] 6.5 g/dL Normal 6.4-8.2 [facility] Comment on above: Performed By: #### T SH, FT3 #### [facility] [address] [place] [address] Dr. Charlotte Argueta Sodium [Moles/Vol] 136 mmol/L Normal 136-145 [facility] Comment on above: Performed By: #### T SH, FT3 #### [facility] [address] [place] [address] Dr. Charlotte Argueta Urea nitrogen [Mass/Vol] 39.0 mg/dL Critically high 7.0-18.0 [facility] Comment on above: Performed By: #### T SH, FT3 #### [facility] [address] [place] [address] Dr. Charlotte Argueta Urea nitrogen/Creatinine [Mass ratio] 23.6 mg/mg Normal [facility] Comment on above: Performed By: #### T SH, FT3 #### [facility] [address] [place] [address] Dr. Charlotte Argueta RESPIRATORY PANEL PLUSon Adenovirus Not detected Normal NOT DETECTED [facility] Comment on above: Performed By: #### C MP #### [facility] [address] [place] [address] Dr. Charlotte Diamond Parapertusis Not detected Normal NOT DETECTED [facility] Comment on above: Performed By: #### C MP #### [facility] [address] [address] [address] Charlotte Diamond Pertussis Not detected Normal NOT DETECTED [facility] [facility] Comment on above: Performed By: #### C MP #### [facility] [address] [address] [address] Charlotte Argueta Chlamydia Pneumoniae Not detected Normal NOT DETECTED [facility] Comment on above: Performed By: #### C MP #### [facility] [address] [place] [address] Dr. Charlotte Argueta Coronavirus 229E Not detected Normal NOT DETECTED [facility] Comment on above: Performed By: #### C MP #### [facility] [address] [place] [address] Dr. Charlotte Argueta Coronavirus HKU1 Not detected Normal NOT DETECTED [facility] Comment on above: Performed By: #### C MP #### [facility] [address] [place] [address] Dr. Charlotte Argueta Coronavirus NL63 Not detected Normal NOT DETECTED [facility] Comment on above: Performed By: #### C MP #### [facility] [address] [place] [address] Dr. Charlotte Argueta Coronavirus OC43 Not detected Normal NOT DETECTED [facility] Comment on above: Performed By: #### C MP #### [facility] [address] [place] [address] Dr. Charlotte Argueta Influenza A H1 2009 Detected Abnormal NOT DETECTED [facility] Comment on above: Performed By: #### C MP #### [facility] [address] [place] [address] Dr. Charlotte Argueta Influenza A H3 Not detected Normal NOT DETECTED The [facility] Comment on above: Performed By: #### C MP #### [facility] [address] [place] [address] Dr. Charlotte Argueta Influenza B Not detected Normal NOT DETECTED [facility] Comment on above: Performed By: #### C MP #### [facility] [address] [address] [address] Charlotte Argueta Metapneumovirus Not detected Normal NOT DETECTED [facility] Comment on above: Performed By: #### C MP #### [facility] [address] [place] [address] Dr. Charlotte Argueta Mycoplas. Pneumoniae Not detected Normal NOT DETECTED [facility] Comment on above: Performed By: #### C MP #### [facility] [address] [address] [address] Charlotte Argueta Parainfluenza 1 Not detected Normal NOT DETECTED [facility] Comment on above: Performed By: #### C MP #### [facility] [address] [place] [address] Dr. Charlotte Argueta Parainfluenza 2 Not detected Normal NOT DETECTED [facility] Comment on above: Performed By: #### C MP #### [facility] [address] [place] [address] Dr. Charlotte Argueta Parainfluenza 3 Not detected Normal NOT DETECTED [facility] Comment on above: Performed By: #### C MP #### [facility] [address] [place] [address] Dr. Charlotte Argueta Parainfluenza 4 Not detected Normal NOT DETECTED [facility] Comment on above: Performed By: #### C MP #### [facility] [address] [place] [address] Dr. Charlotte Argueta Rhino/Enterovirus Not detected Normal NOT DETECTED [facility] Comment on above: Performed By: #### C MP #### [facility] [address] [address] [address] Charlotte GONCALVES Header 1 RESPIRATORY PANEL: VIRUSES Normal [facility] Comment on above: Performed By: #### C MP #### [facility] [address] [place] [address] Dr. Charlotte GONCALVES Header 2 RESPIRATORY PANEL: BACTERIA Normal [facility] Comment on above: Performed By: #### C MP #### [facility] [address] [place] [address] Dr. Charlotte Argueta RSV Not detected Normal NOT DETECTED [facility] Comment on above: Performed By: #### C MP #### [facility] [address] [place] [address] Dr. Charlotte Argueta SARS-CoV-2 (COVID-19) RNA DANNY+probe Ql (Unsp spec) Not detected Normal NOT DETECTED [facility] Comment on above: Performed By: #### C MP #### [facility] [address] [place] [address] Dr. Charlotte Argueta VIT B12 AND FOLATEon 022 Cobalamin (Vitamin B12) [Mass/Vol] 2298.0 pg/mL Critically high 193.0-986.0 [facility] Comment on above: Performed By: #### B LDCX1 #### [facility] [address] [place] [address] Dr. Charlotte Argueta FOLATE 14.70 ng/mL Normal 8.60-58.90 [facility] Comment on above: Performed By: #### B LDCX1 #### [facility] [address] [place] [address] Dr. Charlotte Argueta XR CHEST 1 Von [...] residual edema; improved. Electronically authenticated by: NAHUM OLCKE Date: 2022-08-05 10:46 Normal [facility] BNPon 08-04-2022 Natriuretic peptide B (Bld) [Mass/Vol] 6043.0 pg/mL Critically high <=1,800.0 [facility] Comment on above: Performed By: #### L IVER #### [facility] [address] [place] [address] Dr. Charlotte Argueta CBC W MANUAL DIFFon 08-04-20 22 ATYPICAL LYMPH # Normal The [facility] Comment on above: Performed By: #### T SH, FT3 #### [facility] [address] [place] [address] Dr. Charlotte Argueta ATYPICAL LYMPH % Normal [facility] Comment on above: Performed By: #### T SH, FT3 #### [facility] [address] [place] [address] Dr. Charlotte Argueta BAND # 0.0 103/ul Normal 0.0-0.3 [facility] Comment on above: Performed By: #### T SH, FT3 #### [facility] [address] [place] [address] Dr. Charlotte Argueta BAND % 0 % Normal 0-5 [facility] Comment on above: Performed By: #### T , FT3 #### [facility] [address] [place] [address] Dr. Charlotte Argueta BASOM # 0.04 103/ul Normal 0.00-0.10 [facility] Comment on above: Performed By: #### T , FT3 #### [facility] [address] [place] [address] Dr. Charlotte Argueta BASOM % 1.0 % Normal 0.2-2.0 [facility] Comment on above: Performed By: #### T , FT3 #### [facility] [address] [place] [address] Dr. Charlotte Argueta BLAST # Normal [facility] Comment on above: Performed By: #### T SH, FT3 #### [facility] [address] [place] [address] Dr. Charoltte Argueta BLAST % Normal [facility] Comment on above: Performed By: #### T SH, FT3 #### [facility] [address] [place] [address] Dr. Charlotte Argueta CORRECTED WBC Normal 4.0-11.0 [facility] Comment on above: Performed By: #### T SH, FT3 #### [facility] [address] [address] [address] Charlotte Argueta EOS # 0.00 103/ul Normal 0.00-0.70 [facility] Comment on above: Performed By: #### T SH, FT3 #### [facility] [address] [address] [address] Charlotte Argueta EOS% 0.0 % Critically low 0.9-7.0 [facility] Comment on above: Performed By: #### T SH, FT3 #### [facility] [address] [address] [address] Charlotte Argueta HCT 29.9 % Critically low 36.0-48.0 [facility] Comment on above: Performed By: #### T SH, FT3 #### [facility] [address] [address] [address] Charlotte Argueta HGB 9.6 g/dl Critically low 12.0-16.0 [facility] Comment on above: Performed By: #### T SH, FT3 #### [facility] [address] [address] [address] Charlotte Argueta LYMPHM # 0.14 103/ul Critically low 1.20-3.80 [facility] Comment on above: Performed By: #### T SH, FT3 #### [facility] [address] [address] [address] Charlotte Argueta LYMPHM% 3.0 % Critically low 20.5-60.0 [facility] Comment on above: Performed By: #### T SH, FT3 #### [facility] [address] [address] [address] Charlotte Argueta MCH 29.5 pg Normal 26.7-34.0 [facility] Comment on above: Performed By: #### T SH, FT3 #### [facility] [address] [address] [address] Charlotte Argueta MCHC 32.1 g/dl Normal 29.9-35.2 [facility] Comment on above: Performed By: #### T , FT3 #### [facility] [address] [place] [address] Dr. Charlotte Argueta MCV 92.0 fL Normal 81.0-99.0 [facility] Comment on above: Performed By: #### T , FT3 #### [facility] [address] [place] [address] Dr. Charlotte Argueta METAMYELOCYTE # Normal [facility] Comment on above: Performed By: #### T , FT3 #### [facility] [address] [place] [address] Dr. Charlotte Argueta METAMYELOCYTE % Normal [facility] Comment on above: Performed By: #### T , FT3 #### [facility] [address] [place] [address] Dr. Charlotte Argutea MONOM# 0.14 103/ul Critically low 0.30-0.80 [facility] Comment on above: Performed By: #### T , FT3 #### [facility] [address] [place] [address] Dr. Charlotte Argueta MONOM% 3.0 % Normal 1.7-12.0 [facility] Comment on above: Performed By: #### T , FT3 #### [facility] [address] [place] [address] Dr. Charlotte Argueta MPV 10.5 fL Normal 9.5-13.5 [facility] Comment on above: Performed By: #### , FT3 #### [facility] [address] [place] [address] Dr. Charlotte Argueta MYELOCYTE # Normal [facility] Comment on above: Performed By: #### T , FT3 #### [facility] [address] [place] [address] Dr. Charlotte Argueta MYELOCYTE % Normal [facility] Comment on above: Performed By: #### T , FT3 #### [facility] [address] [place] [address] Dr. Charlotte Argueta NRBC Normal [facility] Comment on above: Performed By: #### T SH, FT3 #### [facility] [address] [address] [address] Charlotte Argueta PLT 364 103/ul Normal 150-450 [facility] Comment on above: Performed By: #### T SH, FT3 #### [facility] [address] [place], [place] [address] Dr. Charlotte Argueta RBC 3.25 106/ul Critically low 4.20-5.40 [facility] Comment on above: Performed By: #### T SH, FT3 #### [facility] [address] [address] [address] Charlotte Argueta RDW 14.0 % Normal 11.0-15.0 [facility] Comment on above: Performed By: #### T SH, FT3 #### [facility] [address] [address] [address] Charlotte Argueta SEG # 4.18 103/ul Normal 1.40-6.50 [facility] Comment on above: Performed By: #### T SH, FT3 #### [facility] [address] [address] [address] Charlotte Argueta SEG % 93.0 % Critically high 43.0-75.0 [facility] Comment on above: Performed By: #### T SH, FT3 #### [facility] [address] [address] [address] Charlotte Argueta WBC 4.5 103/ul Normal 4.0-11.0 [facility] Comment on above: Performed By: #### T SH, FT3 #### [facility] [address] [address] [address] Charlotte Argueta ECHOCARDIO M/2D COMPLETEon 1 10-05-2021 ECHOCARDIO M/2D COMPLETE Patient: EMY CHEATHAM Exam Date: 08/04/2022 : 1945 Gender:F Ordering : DR NASREEN MARY . Admission #: [id number] Family : Order #: [id number] CLICK HERE TO VIEW EXAM ECHOCARDIOGRAM REPORT [...] Love M.D. on 08/09/2022 at 09:59 Normal [facility] FREE T3on 08-04-2022 FREE T3 0.63 pg/mlL Critically low 2.18-3.98 [facility] Comment on above: Performed By: #### I NFLUAB #### [facility] [address] [place] [address] Dr. Charlotte Argueta PROF CHEM 8 (BAS METB)on Anion gap [Moles/Vol] 13.2 mmol/L Normal [facility] Comment on above: Performed By: #### L IVER #### [facility] [address] [place] [address] Dr. Charlotte Argueta Calcium [Mass/Vol] 8.3 mg/dL Critically low 8.5-10.1 [facility] e [facility] Comment on above: Performed By: #### L IVER #### [facility] [address] [place] [address] Dr. Charlotte Argueta Chloride [Moles/Vol] 103 mmol/L Normal 98-107 [facility] Comment on above: Performed By: #### L IVER #### [facility] [address] [place] [address] Dr. Charlotte Argueta CO2 [Moles/Vol] 24.9 mmol/L Normal 21.0-32.0 [facility] Comment on above: Performed By: #### L IVER #### [facility] [address] [address] [address] Charltote Argueta Creatinine [Mass/Vol] 1.66 mg/dL Critically high 0.55-1.02 [facility] Comment on above: Performed By: #### L IVER #### [facility] [address] [address] [address] Charlotte Argueta EGFR-AF BARBADIAN 36 mL/min/1.73m2 Critically low >=60 [facility] Comment on above: Performed By: #### L IVER #### [facility] [address] [place] [address] Dr. Charlotte Argueta EGFR-NON AF BARBADIAN 30 mL/min/1.73m2 Critically low >=60 [facility] Comment on above: Performed By: #### L IVER #### [facility] [address] [address] [address] Charlotte Argueta Glucose [Mass/Vol] 158 mg/dL Critically high 74-106 T [facility] Comment on above: Performed By: #### L IVER #### [facility] [address] [place] [address] Dr. Charlotte Argueta Potassium [Moles/Vol] 4.1 mmol/L Normal 3.5-5.1 [facility] Comment on above: Performed By: #### L IVER #### [facility] [address] [address] [address] Charlotte Argueta Sodium [Moles/Vol] 137 mmol/L Normal 136-145 [facility] Comment on above: Performed By: #### L IVER #### [facility] [address] [address] [address] Charlotte Argueta Urea nitrogen [Mass/Vol] 36.0 mg/dL Critically high 7.0-18.0 [facility] Comment on above: Performed By: #### L IVER #### [facility] [address] [place] [address] Dr. Charlotte Argueta Urea nitrogen/Creatinine [Mass ratio] 21.7 mg/mg Normal [facility] Comment on above: Performed By: #### L IVER #### [facility] [address] [place] [address] Dr. Charlotte Argueta TSHon 08-04-2022 TSH 1.051 uIU/mL Normal 0.358-3.740 [facility] Comment on above: Performed By: #### I NFLUAB #### [facility] [address] [place] [address] Dr. Charlotte Argueta BNPon 08-03-2022 Natriuretic peptide B (Bld) [Mass/Vol] 2399.0 pg/mL Critically high <=1,800.0 [facility] Comment on above: Performed By: #### I NFLUAB #### [facility] [address] [place] [address] Dr. Charlotte Argueta CBC AUTO DIFFon 08-03-2022 BASO # 0.1 103/ul Normal 0.0-0.1 [facility] Comment on above: Performed By: #### B LDCX1 #### [facility] [address] [place] [address] Dr. Charlotte Argueta Basophils/100 WBC (Bld) 0.7 % Normal 0.2-2.0 [facility] Comment on above: Performed By: #### B LDCX1 #### [facility] [address] [place] [address] Dr. Charlotte Argueta EO # 0.2 103/ul Normal 0.0-0.7 [facility] Comment on above: Performed By: #### B LDCX1 #### [facility] [address] [place] [address] Dr. Charlotte Argueta Eosinophils/100 WBC (Bld) 3.1 % Normal 0.9-7.0 [facility] Comment on above: Performed By: #### B LDCX1 #### [facility] [address] [place] [address] Dr. Charlotte Argueta Erythrocyte distribution width (RBC) [Ratio] 14.2 % Normal 11.0-15.0 [facility] Comment on above: Performed By: #### B LDCX1 #### [facility] [address] [place] [address] Dr. Charlotte Argueta Hematocrit (Bld) [Volume fraction] 30.9 % Critically low 36.0-48.0 [facility] Comment on above: Performed By: #### B LDCX1 #### [facility] [address] [place] [address] Dr. Charlotte Argueta Hemoglobin (Bld) [Mass/Vol] 9.9 g/dL Critically low 12.0-16.0 [facility] Comment on above: Performed By: #### B LDCX1 #### [facility] [address] [place] [address] Dr. Charlotte Argueta IG # 0.04 10e3/ul Critically high 0.00-0.03 [facility] Comment on above: Performed By: #### B LDCX1 #### [facility] [address] [place] [address] Dr. Charlotte Argueta IG % 0.5 % Normal 0.0-0.5 [facility] Comment on above: Performed By: #### B LDCX1 #### [facility] [address] [place] [address] Dr. Charlotte Argueta LYMPH # 1.0 103/ul Critically low 1.2-3.8 [facility] Comment on above: Performed By: #### B LDCX1 #### [facility] [address] [place] [address] Dr. Charlotte Argueta Lymphocytes/100 WBC (Bld) 13.5 % Critically low 20.5-60.0 [facility] Comment on above: Performed By: #### B LDCX1 #### [facility] [address] [place] [address] Dr. Charlotte Argueta MANUAL DIFF REQ NO Normal [facility] Comment on above: Performed By: #### B LDCX1 #### [facility] [address] [place] [address] Dr. Charlotte Argueta MCH (RBC) [Entitic mass] 29.6 pg Normal 26.7-34.0 [facility] Comment on above: Performed By: #### B LDCX1 #### [facility] [address] [place] [address] Dr. Charlotte Argueta MCHC (RBC) [Mass/Vol] 32.0 g/dL Normal 29.9-35.2 [facility] Comment on above: Performed By: #### B LDCX1 #### [facility] [address] [place] [address] Dr. Charlotte Argueta MCV (RBC) [Entitic vol] 92.2 fL Normal 81.0-99.0 [facility] Comment on above: Performed By: #### B LDCX1 #### [facility] [address] [place] [address] Dr. Charlotte Argueta MONO # 0.7 103/ul Normal 0.3-0.8 [facility] Comment on above: Performed By: #### B LDCX1 #### [facility] [address] [place] [address] Dr. Charlotte Argueta Monocytes/100 WBC (Bld) 10.0 % Normal 1.7-12.0 [facility] Comment on above: Performed By: #### B LDCX1 #### [facility] [address] [place] [address] Dr. Charlotte Argueta NEUT # 5.3 103/ul Normal 1.4-6.5 [facility] Comment on above: Performed By: #### B LDCX1 #### [facility] [address] [place] [address] Dr. Charlotte Argueta Neutrophils/100 WBC (Bld) 72.2 % Normal 43.0-75.0 [facility] Comment on above: Performed By: #### B LDCX1 #### [facility] [address] [place] [address] Dr. Charlotte Argueta Platelet mean volume (Bld) [Entitic vol] 10.3 fL Normal 9.5-13.5 [facility] Comment on above: Performed By: #### B LDCX1 #### [facility] [address] [place] [address] Dr. Charlotte Argueta PLT 385 103/ul Normal 150-450 [facility] Comment on above: Performed By: #### B LDCX1 #### [facility] [address] [place] [address] Dr. Charlotte Argueta RBC 3.35 106/ul Critically low 4.20-5.40 [facility] Comment on above: Performed By: #### B LDCX1 #### [facility] [address] [place] [address] Dr. Charlotte Argueta WBC 7.3 103/ul Normal 4.0-11.0 [facility] Comment on above: Performed By: #### B LDCX1 #### [facility] [address] [place] [address] Dr. Charlotte Argueta CULTURE BLOODon 08-03-2022 Microscopic examination of blood, culture Culture Observations: NO GROWTH AT 5 DAYS. Normal [facility] Comment on above: Performed By: #### T MARY, FT3 #### [facility] [address] [place] [address] Dr. Charlotte Argueta Microscopic examination of blood, culture Culture Observations: NO GROWTH AT 5 DAYS. Normal [facility] Comment on above: Performed By: #### B LDCX1 #### [facility] [address] [place] [address] Dr. Charlotte Argueta CULTURE URINEon 08-03-2022 CULTURE URINE Culture Observations : NO GROWTH. Normal [facility] Comment on above: Performed By: #### T MARY, FT3 #### [facility] [address] [place] [address] Dr. Charlotte Argueta [facility]on SARS-CoV-2 (COVID-19) RNA DANNY+probe Ql (Unsp spec) Not detected Normal NOT DETECTED [facility] Comment on above: Result Comment: When diagnostic [...] for this test is supported by the Manufacturing Operations Manager of Health and Human Service's declaration that [...] used). Performed By: #### B LDCX1 #### [facility] [address] [place] [address] Dr. Charlotte Argueta ER URINE PROFILEon 2 Bilirubin Ql (U) Negative Normal NEGATIVE [facility] Comment on above: Performed By: #### T SH, FT3 #### [facility] [address] [place] [address] Dr. Charlotte Argueta Clarity (U) CLEAR Normal CLEAR [facility] Comment on above: Performed By: #### T SH, FT3 #### [facility] [address] [place] [address] Dr. Charlotte Argueta Color (U) LT. YELLOW Normal YELLOW [facility] Comment on above: Performed By: #### T SH, FT3 #### [facility] [address] [place] [address] Dr. Charlotte Argueta ERUAHD A micrscopic examination will be performed if indicated. Normal [facility] Comment on above: Performed By: #### T SH, FT3 #### [facility] [address] [place] [address] Dr. Charlotte Argueta Glucose Ql (U) Negative Normal NEGATIVE [facility] Comment on above: Performed By: #### T SH, FT3 #### [facility] [address] [place] [address] Dr. Charlotte Argueta Hemoglobin Ql (U) TRACE-INTACT Abnormal NEGATIVE [facility] Comment on above: Performed By: #### T SH, FT3 #### [facility] [address] [place] [address] Dr. Charlotte Argueta Ketones Ql (U) Negative Normal NEGATIVE [facility] Comment on above: Performed By: #### T SH, FT3 #### [facility] [address] [place] [address] Dr. Charlotte Argueta LEUKOCYTES LARGE Abnormal NEGATIVE [facility] Comment on above: Performed By: #### T SH, FT3 #### [facility] [address] [place] [address] Dr. Charlotte Argueta Nitrite Ql (U) Negative Normal NEGATIVE [facility] Comment on above: Performed By: #### T SH, FT3 #### [facility] [address] [place] [address] Dr. Charlotte Argueta pH (U) 5.0 [pH] Normal 5-9 [facility] Comment on above: Performed By: #### T SH, FT3 #### [facility] [address] [place] [address] Dr. Charlotte Argueta SPEC GRAVITY 1.025 Normal 1.005-<=1.025 [facility] [facility] Comment on above: Performed By: #### T SH, FT3 #### [facility] [address] [place] [address] Dr. Charlotte Argueta UA PROTEIN Negative Normal NEGATIVE/ TRACE [facility] Comment on above: Performed By: #### T SH, FT3 #### [facility] [address] [place] [address] Dr. Charlotte Argueta UR MICRO IND INDICATED Normal [facility] Comment on above: Performed By: #### T SH, FT3 #### [facility] [address] [place] [address] Dr. Charlotte Argueta Urobilinogen Qn (U) 0.2 {Kathia'U}/dL Normal 0.2 - 1. 0 [facility] Comment on above: Performed By: #### T SH, FT3 #### [facility] [address] [place] [address] Dr. Charlotte Argueta FREE T4on 08-03-2022 Free T4 [Mass/Vol] 0.99 ng/dL Normal 0.76-1.46 [facility] Comment on above: Performed By: #### T , FT3 #### [facility] [address] [place] [address] Dr. Charlotte Argueta INFLUENZA A AND B AGon 08-03 INFLUANEGH SEE BELOW Normal [facility] Comment on above: Result Comment: Nega tive for Flu A protein angiten. Infection due to Flu A cannot be ruled out. Flu A angiten in the sample may be below the detection limit of the test. Performed By: #### I NFLUAB #### [facility] [address] [place] [address] Dr. Charlotte Argueta INFLUBNEG SEE BELOW Normal [facility] Comment on above: Result Comment: Nega tive for Flu B protein antigen. Infection due to Flu B cannot be ruled out. Flu B antigen in the sample may be below the detection limit of the test. Performed By: #### I NFLUAB #### [facility] [address] [place] [address] Dr. Chralotte Argueta INFLUENZA A AG Negative Normal NEGATIVE SEE COMMENT [facility] Comment on above: Performed By: #### I NFLUAB #### [facility] [address] [place] [address] Dr. Charlotte Argueta INFLUENZA B AG Negative Normal NEGATIVE SEE COMMENT [facility] Comment on above: Performed By: #### I NFLUAB #### [facility] [address] [place] [address] Dr. Charlotte Argueta INTERNAL CONTROLS Within Normal Limits Normal Wi thin Normal Limits [facility] Comment on above: Performed By: #### I NFLUAB #### [facility] [address] [place] [address] Dr. Charlotte Argueta LIPASEon 08-03-2022 Lipase [Catalytic activity/Vol] 28.0 U/L Critically low 73.0-393.0 [facility] Comment on above: Performed By: #### L IVER #### [facility] [address] [place] [address] Dr. Charlotte Argueta PH VENOUS BLOODon 08-03-2022 PCO2 VENOUS 33.0 mmHg Critically low 40.0-52.0 [facility] Comment on above: Performed By: #### L IVER #### [facility] [address] [address] [address] Charlotte Argueta pH VENOUS 7.417 Normal 7.330-7.430 [facility] Comment on above: Performed By: #### L IVER #### [facility] [address] [address] [address] Charlotte Argueta PROF 14(COMP METB)on 022 Albumin [Mass/Vol] 3.0 g/dL Critically low 3.4-5.0 [facility] Comment on above: Performed By: #### L IVER #### [facility] [address] [place] [address] Dr. Charlotte Argueta Albumin/Globulin [Mass ratio] 0.8 {ratio} Normal [facility] Comment on above: Performed By: #### L IVER #### [facility] [address] [address] [address] Charlotte Argueta ALP [Catalytic activity/Vol] 110 U/L Normal 46-116 [facility] Comment on above: Performed By: #### L IVER #### [facility] [address] [place] [address] Dr. Charlotte Argueta ALT [Catalytic activity/Vol] 11 U/L Critically low 14-59 [facility] Comment on above: Performed By: #### L IVER #### [facility] [address] [address] [address] Charlotte Argueta Anion gap [Moles/Vol] 13.2 mmol/L Normal [facility] Comment on above: Performed By: #### L IVER #### [facility] [address] [address] [address] Charlotte Argueta AST [Catalytic activity/Vol] 19 U/L Normal 15-37 [facility] Comment on above: Performed By: #### L IVER #### [facility] [address] [address] [address] Charlotte Argueta Bilirubin [Mass/Vol] 0.1 mg/dL Critically low 0.2-1.0 [facility] Comment on above: Performed By: #### L IVER #### [facility] [address] [address] [address] Charlotte Argueta Calcium [Mass/Vol] 8.5 mg/dL Normal 8.5-10.1 [facility] Comment on above: Performed By: #### L IVER #### [facility] [address] [address] [address] Charlotte Argueta Chloride [Moles/Vol] 104 mmol/L Normal 98-107 [facility] Comment on above: Performed By: #### L IVER #### [facility] [address] [address] [address] Charlotte Argueta CO2 [Moles/Vol] 25.0 mmol/L Normal 21.0-32.0 [facility] Comment on above: Performed By: #### L IVER #### [facility] [address] [address] [address] Charlotte Argueta Creatinine [Mass/Vol] 1.50 mg/dL Critically high 0.55-1.02 [facility] Comment on above: Performed By: #### L IVER #### [facility] [address] [place] [address] Dr. Charlotte Argueta EGFR-AF BARBADIAN 41 mL/min/1.73m2 Critically low >=60 [facility] Comment on above: Performed By: #### L IVER #### [facility] [address] [address] [address] Charlotte Argueta EGFR-NON AF BARBADIAN 34 mL/min/1.73m2 Critically low >=60 [facility] Comment on above: Performed By: #### L IVER #### [facility] [address] [address] [address] Charlotte Argueta Globulin (S) [Mass/Vol] 3.8 g/dL Normal [facility] Comment on above: Performed By: #### L IVER #### [facility] [address] [address] [address] Charlotte Argueta Glucose [Mass/Vol] 140 mg/dL Critically high 74-106 T [facility] Comment on above: Performed By: #### L IVER #### [facility] [address] [address] [address] Charlotte Argueta Potassium [Moles/Vol] 4.2 mmol/L Normal 3.5-5.1 [facility] Comment on above: Performed By: #### L IVER #### [facility] [address] [address] [address] Charlotte Argueta Protein [Mass/Vol] 6.8 g/dL Normal 6.4-8.2 [facility] Comment on above: Performed By: #### L IVER #### [facility] [address] [address] [address] Charlotte Argueta Sodium [Moles/Vol] 138 mmol/L Normal 136-145 [facility] Comment on above: Performed By: #### L IVER #### [facility] [address] [address] [address] Charlotte Argueta Urea nitrogen [Mass/Vol] 35.0 mg/dL Critically high 7.0-18.0 [facility] Comment on above: Performed By: #### L IVER #### [facility] [address] [place] [address] Dr. Charlotte Argueta Urea nitrogen/Creatinine [Mass ratio] 23.3 mg/mg Normal [facility] Comment on above: Performed By: #### L IVER #### [facility] [address] [place] [address] Dr. Charlotte Argueta PROTIMEon 08-03-2022 INR Coag (PPP) [Relative time] 0.94 {INR} Normal [facility] Comment on above: Performed By: #### C MREP #### [facility] [address] [place] [address] Dr. Charlotte Argueta INR GUIDELINES SEE BELOW Normal [facility] Comment on above: Result Comment: CORI RED INR: 2.0 - 3.0 CONDITIONS NOT LISTED BELOW 2.5 - 3.5 FOR PROSTHETIC HEART VALVE REPLACEMENT 2.5 - 3.5 RECURRENT THROMBOSIS Performed By: #### C MREP #### [facility] [address] [place] [address] Dr. Charlotte Argueta PT Coag (PPP) [Time] 10.2 s Normal 9.0-11.6 [facility] Comment on above: Performed By: #### C MREP #### [facility] [address] [place] [address] Dr. Charlotte Argueta PTTon 08-03-2022 aPTT Coag (Bld) [Time] 30.8 s Normal 22.3-36.2 [facility] Comment on above: Performed By: #### C MREP #### [facility] [address] [place] [address] Dr. Charlotte Argueta TROPONIN, HIGH SENSITIVITYon 08-03-2022 HSTROP 12.2 pg/mL Normal 4.0-51.3 [facility] Comment on above: Result Comment: CUT- OFF POINTS HAVE BEEN ESTABLISHED BASED ON THE FOURTH UNIVERSAL DEFINITIONS OF MYOCARDIAL INFARCTION. THE UPPER REFERENCE LIMIT (URL) OF TROPONIN, DEFINED THE 99TH PERCENTILE OF cTnI DISTRIBUTION IN A REFERENCE POPULATION, HAS BEEN CONFIRMED THE DECISION THRESHOLD FOR [place] DIAGNOSIS. Performed By: #### I NFLUAB #### [facility] [address] [place] [address] Dr. Charlotte Argueta TSHon 08-03-2022 TSH 2.222 uIU/mL Normal 0.358-3.740 [facility] Comment on above: Performed By: #### I NFLUAB #### [facility] [address] [place] [address] Dr. Charlotte Argueta URINE MICROSCOPIC ONLYon BACTERIA NONE SEEN Normal NONE SEEN [facility] Comment on above: Performed By: #### T SH, FT3 #### [facility] [address] [place] [address] Dr. Charlotte Argueta Bacteria identified Cx Nom (U) INDICATED Normal [facility] Comment on above: Performed By: #### T SH, FT3 #### [facility] [address] [place] [address] Dr. Charlotte Argueta CAST NONE SEEN Normal NONE SEEN [facility] Comment on above: Performed By: #### T SH, FT3 #### [facility] [address] [place] [address] Dr. Charlotte Argueta Crystals LM Nom (Urine sed) NONE SEEN Normal NONE SEEN [facility] Comment on above: Performed By: #### T SH, FT3 #### [facility] [address] [place] [address] Dr. Charlotte Argueta Epithelial cells LM Ql (Urine sed) RARE Normal NONE SEEN /RARE [facility] Comment on above: Performed By: #### T SH, FT3 #### [facility] [address] [place] [address] Dr. Charlotte Argueta MUCOUS NONE SEEN Normal NONE SEEN [facility] Comment on above: Performed By: #### T SH, FT3 #### [facility] [address] [place] [address] Dr. Charlotte Argueta RBC 2-5 Abnormal 0-2 [facility] Comment on above: Performed By: #### T SH, FT3 #### [facility] [address] [place] [address] Dr. Charlotte Argueta WBC 20-50 Abnormal NONE SEEN [facility] Comment on above: Performed By: #### T SH, FT3 #### [facility] [address] [place] [address] Dr. Charlotte Argueta XR CHEST 1 Von [...] CHARLENE FABIAN Date: 2022-08-03 18:38 Normal [facility] XR HIP RT 2 3V W PELVISon [...] KERMIT THAPA Date: 2022-08-03 18:47 Normal [facility] CBC AUTO DIFFon 01-25-2022 BASO # 0.1 103/ul Normal 0.0-0.1 [facility] Comment on above: Performed By: #### T SH, FT3 #### [facility] [address] [place] [address] Dr. Charlotte Argueta Basophils/100 WBC (Bld) 0.7 % Normal 0.2-2.0 [facility] Comment on above: Performed By: #### T SH, FT3 #### [facility] [address] [address] [address] Charlotte Argueta EO # 0.6 103/ul Normal 0.0-0.7 [facility] Comment on above: Performed By: #### T , FT3 #### [facility] [address] [address] [address] Charlotte Argueta Eosinophils/100 WBC (Bld) 7.2 % Critically high 0.9-7.0 [facility] Comment on above: Performed By: #### T , FT3 #### [facility] [address] [address] [address] Charlotte Argueta Erythrocyte distribution width (RBC) [Ratio] 14.5 % Normal 11.0-15.0 [facility] Comment on above: Performed By: #### T SH, FT3 #### [facility] [address] [address] [address] Charlotte Argueta Hematocrit (Bld) [Volume fraction] 32.9 % Critically low 36.0-48.0 [facility] Comment on above: Performed By: #### T SH, FT3 #### [facility] [address] [place] [address] Dr. Charlotte Argueta Hemoglobin (Bld) [Mass/Vol] 10.1 g/dL Critically low 12.0-16.0 [facility] Comment on above: Performed By: #### T SH, FT3 #### [facility] [address] [place] [address] Dr. Charlotte Argueta IG # 0.06 10e3/ul Critically high 0.00-0.03 [facility] Comment on above: Performed By: #### T SH, FT3 #### [facility] [address] [place] [address] Dr. Charlotte Argueta IG % 0.7 % Critically high 0.0-0.5 [facility] Comment on above: Performed By: #### T MARY, FT3 #### [facility] [address] [place] [address] Dr. Charlotte Argueta LYMPH # 2.5 103/ul Normal 1.2-3.8 [facility] Comment on above: Performed By: #### T SH, FT3 #### [facility] [address] [place] [address] Dr. Charlotte Argueta Lymphocytes/100 WBC (Bld) 30.4 % Normal 20.5-60.0 [facility] Comment on above: Performed By: #### T SH, FT3 #### [facility] [address] [place] [address] Dr. Charlotte Argueta MANUAL DIFF REQ NO Normal [facility] Comment on above: Performed By: #### T SH, FT3 #### [facility] [address] [place] [address] Dr. Charlotte Argueta MCH (RBC) [Entitic mass] 29.6 pg Normal 26.7-34.0 [facility] Comment on above: Performed By: #### T SH, FT3 #### [facility] [address] [place] [address] Dr. Charlotte Argueta MCHC (RBC) [Mass/Vol] 30.7 g/dL Normal 29.9-35.2 [facility] Comment on above: Performed By: #### T MARY, FT3 #### [facility] [address] [place] [address] Dr. Charlotte Argueta MCV (RBC) [Entitic vol] 96.5 fL Normal 81.0-99.0 [facility] Comment on above: Performed By: #### T MARY, FT3 #### [facility] [address] [place] [address] Dr. Charlotte Argueta MONO # 0.7 103/ul Normal 0.3-0.8 [facility] Comment on above: Performed By: #### T MARY, FT3 #### [facility] [address] [place] [address] Dr. Charlotte Argueta Monocytes/100 WBC (Bld) 8.9 % Normal 1.7-12.0 [facility] Comment on above: Performed By: #### T MARY, FT3 #### [facility] [address] [place] [address] Dr. Charlotte Argueta NEUT # 4.2 103/ul Normal 1.4-6.5 [facility] Comment on above: Performed By: #### Andi HERNANDEZ, FT3 #### [facility] [address] [place] [address] Dr. Charlotte Argueta Neutrophils/100 WBC (Bld) 52.1 % Normal 43.0-75.0 [facility] Comment on above: Performed By: #### Andi HERNANDEZ, FT3 #### [facility] [address] [place] [address] Dr. Charlotte Argueta Platelet mean volume (Bld) [Entitic vol] 10.2 fL Normal 9.5-13.5 [facility] Comment on above: Performed By: #### T MARY, FT3 #### [facility] [address] [place] [address] Dr. Charlotte Argueta PLT 450 103/ul Normal 150-450 [facility] Comment on above: Performed By: #### T MARY, FT3 #### [facility] [address] [address] [address] Charlotte Argueta RBC 3.41 106/ul Critically low 4.20-5.40 [facility] Comment on above: Performed By: #### T , FT3 #### [facility] [address] [place] [address] Dr. Charlotte Argueta WBC 8.1 103/ul Normal 4.0-11.0 [facility] Comment on above: Performed By: #### T , FT3 #### [facility] [address] [place] [address] Dr. Charlotte Argueta PROF CHEM 8 (BAS METB)on Anion gap [Moles/Vol] 14.4 mmol/L Normal [facility] Comment on above: Performed By: #### B MP #### [facility] [address] [place] [address] Dr. Charlotte Argueta Calcium [Mass/Vol] 8.8 mg/dL Normal 8.5-10.1 [facility] Comment on above: Performed By: #### B MP #### [facility] [address] [place] [address] Dr. Charlotte Argueta Chloride [Moles/Vol] 102 mmol/L Normal 98-107 [facility] Comment on above: Performed By: #### B MP #### [facility] [address] [place] [address] Dr. Charlotte Argueta CO2 [Moles/Vol] 25.7 mmol/L Normal 21.0-32.0 [facility] Comment on above: Performed By: #### B MP #### [facility] [address] [place] [address] Dr. Charlotte Argueta Creatinine [Mass/Vol] 1.59 mg/dL Critically high 0.55-1.02 [facility] Comment on above: Performed By: #### B MP #### [facility] [address] [place] [address] Dr. Charlotte Argueta EGFR-AF BARBADIAN 38 mL/min/1.73m2 Critically low >=60 [facility] Comment on above: Performed By: #### B MP #### [facility] [address] [address] [address] Charlotte Argueta EGFR-NON AF BARBADIAN 31 mL/min/1.73m2 Critically low >=60 [facility] Comment on above: Performed By: #### B MP #### [facility] [address] [address] [address] Charlotte Argueta Glucose [Mass/Vol] 88 mg/dL Normal 74-106 [facility] Comment on above: Performed By: #### B MP #### [facility] [address] [address] [address] Charlotte Argueta Potassium [Moles/Vol] 4.1 mmol/L Normal 3.5-5.1 [facility] Comment on above: Performed By: #### B MP #### [facility] [address] [address] [address] Charlotte Argueta Sodium [Moles/Vol] 138 mmol/L Normal 136-145 [facility] Comment on above: Performed By: #### B MP #### [facility] [address] [address] [address] Charlotte Argueta Urea nitrogen [Mass/Vol] 37.0 mg/dL Critically high 7.0-18.0 [facility] Comment on above: Performed By: #### B MP #### [facility] [address] [address] [address] Charlotte Argueta Urea nitrogen/Creatinine [Mass ratio] 23.3 mg/mg Normal [facility] Comment on above: Performed By: #### B MP #### [facility] [address] [address] [address] Charlotte Argueta VIT D 1 25 DIHYDROXYon 01-25 Calcitriol(1,25 di-OH Vit D) 47.8 pg/mL Normal 19.9-79.3 [facility] Comment on above: Result Comment: Ef fective February 06, 2022 Calcitriol(1,25 di-OH Vit D) reference interval will be changing to: pg/mL . 0 - 6 months: 44.3 - 212.9 7 months - 1 year: 40.3 - 112.4 >1 year: 24.8 - 81.5 Performed By: #### L IVER #### [facility] [address] [place] [address] Dr. Charlotte Argueta CBC AUTO DIFFon 01-24-2022 BASO # 0.0 103/ul Normal 0.0-0.1 [facility] Comment on above: Performed By: #### C MREP #### [facility] [address] [place] [address] Dr. Charlotte Argueta Basophils/100 WBC (Bld) 0.5 % Normal 0.2-2.0 [facility] Comment on above: Performed By: #### C MREP #### [facility] [address] [place] [address] Dr. Charlotte Argueta EO # 0.6 103/ul Normal 0.0-0.7 [facility] Comment on above: Performed By: #### C MREP #### [facility] [address] [place] [address] Dr. Charlotte Argueta Eosinophils/100 WBC (Bld) 8.4 % Critically high 0.9-7.0 [facility] Comment on above: Performed By: #### C MREP #### [facility] [address] [place] [address] Dr. Charlotte Argueta Erythrocyte distribution width (RBC) [Ratio] 14.3 % Normal 11.0-15.0 [facility] Comment on above: Performed By: #### C MREP #### [facility] [address] [place] [address] Dr. Charlotte Argueta Hematocrit (Bld) [Volume fraction] 30.8 % Critically low 36.0-48.0 [facility] Comment on above: Performed By: #### C MREP #### [facility] [address] [place] [address] Dr. Charlotte Argueta Hemoglobin (Bld) [Mass/Vol] 9.8 g/dL Critically low 12.0-16.0 [facility] Comment on above: Performed By: #### C MREP #### [facility] [address] [place] [address] Dr. Charlotte Argueta IG # 0.03 10e3/ul Normal 0.00-0.03 [facility] Comment on above: Performed By: #### C MREP #### [facility] [address] [place] [address] Dr. Charlotte Argueta IG % 0.5 % Normal 0.0-0.5 [facility] Comment on above: Performed By: #### C MREP #### [facility] [address] [place] [address] Dr. Charlotte Argueta LYMPH # 2.2 103/ul Normal 1.2-3.8 [facility] Comment on above: Performed By: #### C MREP #### [facility] [address] [place] [address] Dr. Charlotte Argueta Lymphocytes/100 WBC (Bld) 33.9 % Normal 20.5-60.0 [facility] Comment on above: Performed By: #### C MREP #### [facility] [address] [place] [address] Dr. Charlotte Argueta MANUAL DIFF REQ NO Normal [facility] Comment on above: Performed By: #### C MREP #### [facility] [address] [place] [address] Dr. Charlotte Argueta MCH (RBC) [Entitic mass] 30.4 pg Normal 26.7-34.0 [facility] Comment on above: Performed By: #### C MREP #### [facility] [address] [place] [address] Dr. Charlotte Argueta MCHC (RBC) [Mass/Vol] 31.8 g/dL Normal 29.9-35.2 [facility] Comment on above: Performed By: #### C MREP #### [facility] [address] [place] [address] Dr. Charlotte Argueta MCV (RBC) [Entitic vol] 95.7 fL Normal 81.0-99.0 [facility] Comment on above: Performed By: #### C MREP #### [facility] [address] [place] [address] Dr. Charlotte Argueta MONO # 0.7 103/ul Normal 0.3-0.8 [facility] Comment on above: Performed By: #### C MREP #### [facility] [address] [place] [address] Dr. Charlotte Argueta Monocytes/100 WBC (Bld) 11.1 % Normal 1.7-12.0 [facility] Comment on above: Performed By: #### C MREP #### [facility] [address] [place] [address] Dr. Charlotte Argueta NEUT # 3.0 103/ul Normal 1.4-6.5 [facility] Comment on above: Performed By: #### C MREP #### [facility] [address] [place] [address] Dr. Charlotte Argueta Neutrophils/100 WBC (Bld) 45.6 % Normal 43.0-75.0 [facility] Comment on above: Performed By: #### C MREP #### [facility] [address] [place] [address] Dr. Charlotte Argueta Platelet mean volume (Bld) [Entitic vol] 9.6 fL Normal 9.5-13.5 [facility] Comment on above: Performed By: #### C MREP #### [facility] [address] [place] [address] Dr. Charlotte Argueta PLT 369 103/ul Normal 150-450 [facility] Comment on above: Performed By: #### C MREP #### [facility] [address] [place] [address] Dr. Charlotte Argueta RBC 3.22 106/ul Critically low 4.20-5.40 [facility] Comment on above: Performed By: #### C MREP #### [facility] [address] [place] [address] Dr. Charlotte Argueta WBC 6.6 103/ul Normal 4.0-11.0 [facility] Comment on above: Performed By: #### C MREP #### [facility] [address] [place] [address] Dr. Charlotte Argueta PROF CHEM 8 (BAS METB)on Anion gap [Moles/Vol] 10.9 mmol/L Normal [facility] Comment on above: Performed By: #### C MP #### [facility] [address] [address] [address] Charlotte Argueta Calcium [Mass/Vol] 8.6 mg/dL Normal 8.5-10.1 [facility] Comment on above: Performed By: #### C MP #### [facility] [address] [address] [address] Charlotte Argueta Chloride [Moles/Vol] 104 mmol/L Normal 98-107 [facility] Comment on above: Performed By: #### C MP #### [facility] [address] [address] [address] Charlotte Argueta CO2 [Moles/Vol] 26.2 mmol/L Normal 21.0-32.0 [facility] Comment on above: Performed By: #### C MP #### [facility] [address] [address] [address] Charlotte Argueta Creatinine [Mass/Vol] 1.49 mg/dL Critically high 0.55-1.02 [facility] Comment on above: Performed By: #### C MP #### [facility] [address] [place] [address] Dr. Charlotte Argueta EGFR-AF BARBADIAN 41 mL/min/1.73m2 Critically low >=60 [facility] Comment on above: Performed By: #### C MP #### [facility] [address] [address] [address] Charlotte Argueta EGFR-NON AF BARBADIAN 34 mL/min/1.73m2 Critically low >=60 [facility] Comment on above: Performed By: #### C MP #### [facility] [address] [address] [address] Charlotte Argueta Glucose [Mass/Vol] 92 mg/dL Normal 74-106 [facility] Comment on above: Performed By: #### C MP #### [facility] [address] [address] [address] Charlotte Argueta Potassium [Moles/Vol] 4.1 mmol/L Normal 3.5-5.1 [facility] Comment on above: Performed By: #### C MP #### [facility] [address] [place] [address] Dr. Charlotte Argueta Sodium [Moles/Vol] 137 mmol/L Normal 136-145 [facility] Comment on above: Performed By: #### C MP #### [facility] [address] [place] [address] Dr. Charlotte Argueta Urea nitrogen [Mass/Vol] 35.0 mg/dL Critically high 7.0-18.0 [facility] Comment on above: Performed By: #### C MP #### [facility] [address] [place] [address] Dr. Charlotte Argueta Urea nitrogen/Creatinine [Mass ratio] 23.5 mg/mg Normal [facility] Comment on above: Performed By: #### C MP #### [facility] [address] [place] [address] Dr. Charlotte Argueta CBC AUTO DIFFon 01-23-2022 BASO # 0.0 103/ul Normal 0.0-0.1 [facility] Comment on above: Performed By: #### B LDCX1 #### [facility] [address] [place] [address] Dr. Charlotte Argueta Basophils/100 WBC (Bld) 0.6 % Normal 0.2-2.0 [facility] Comment on above: Performed By: #### B LDCX1 #### [facility] [address] [place] [address] Dr. Charlotte Argueta EO # 0.5 103/ul Normal 0.0-0.7 [facility] Comment on above: Performed By: #### B LDCX1 #### [facility] [address] [place] [address] Dr. Charlotte Argueta Eosinophils/100 WBC (Bld) 8.5 % Critically high 0.9-7.0 [facility] Comment on above: Performed By: #### B LDCX1 #### [facility] [address] [place] [address] Dr. Charlotte Argueta Erythrocyte distribution width (RBC) [Ratio] 14.4 % Normal 11.0-15.0 [facility] Comment on above: Performed By: #### B LDCX1 #### [facility] [address] [place] [address] Dr. Charlotte Argueta Hematocrit (Bld) [Volume fraction] 29.0 % Critically low 36.0-48.0 [facility] Comment on above: Performed By: #### B LDCX1 #### [facility] [address] [place] [address] Dr. Charlotte Argueta Hemoglobin (Bld) [Mass/Vol] 9.2 g/dL Critically low 12.0-16.0 [facility] Comment on above: Performed By: #### B LDCX1 #### [facility] [address] [place] [address] Dr. Charlotte Argueta IG # 0.03 10e3/ul Normal 0.00-0.03 [facility] Comment on above: Performed By: #### B LDCX1 #### [facility] [address] [place] [address] Dr. Charlotte Argueta IG % 0.5 % Normal 0.0-0.5 [facility] Comment on above: Performed By: #### B LDCX1 #### [facility] [address] [place] [address] Dr. Charlotte Argueta LYMPH # 2.0 103/ul Normal 1.2-3.8 [facility] Comment on above: Performed By: #### B LDCX1 #### [facility] [address] [place] [address] Dr. Charlotte Argueta Lymphocytes/100 WBC (Bld) 32.6 % Normal 20.5-60.0 [facility] Comment on above: Performed By: #### B LDCX1 #### [facility] [address] [place] [address] Dr. Charlotte Argueta MANUAL DIFF REQ NO Normal [facility] Comment on above: Performed By: #### B LDCX1 #### [facility] [address] [place] [address] Dr. Charlotte Argueta MCH (RBC) [Entitic mass] 30.1 pg Normal 26.7-34.0 [facility] Comment on above: Performed By: #### B LDCX1 #### [facility] [address] [place] [address] Dr. Charlotte Argueta MCHC (RBC) [Mass/Vol] 31.7 g/dL Normal 29.9-35.2 [facility] Comment on above: Performed By: #### B LDCX1 #### [facility] [address] [place] [address] Dr. Charlotte Argueta MCV (RBC) [Entitic vol] 94.8 fL Normal 81.0-99.0 [facility] Comment on above: Performed By: #### B LDCX1 #### [facility] [address] [place] [address] Dr. Charlotte Argueta MONO # 0.6 103/ul Normal 0.3-0.8 [facility] Comment on above: Performed By: #### B [id number] #### [facility] [address] [place] [address] Dr. Charlotte Argueta Monocytes/100 WBC (Bld) 10.0 % Normal 1.7-12.0 [facility] Comment on above: Performed By: #### B LDCX1 #### [facility] [address] [place] [address] Dr. Charlotte Argueta NEUT # 3.0 103/ul Normal 1.4-6.5 [facility] Comment on above: Performed By: #### B [id number] #### [facility] [address] [place] [address] Dr. Charlotte Argueta Neutrophils/100 WBC (Bld) 47.8 % Normal 43.0-75.0 [facility] Comment on above: Performed By: #### B LDCX1 #### [facility] [address] [place] [address] Dr. Charlotte Argueta Platelet mean volume (Bld) [Entitic vol] 9.8 fL Normal 9.5-13.5 [facility] Comment on above: Performed By: #### B LDCX1 #### [facility] [address] [address] [address] Charlotte Argueta PLT 386 103/ul Normal 150-450 [facility] Comment on above: Performed By: #### B LDCX1 #### [facility] [address] [address] [address] Charlotte Argueta RBC 3.06 106/ul Critically low 4.20-5.40 [facility] Comment on above: Performed By: #### B LDCX1 #### [facility] [address] [address] [address] Charlotte Argueta WBC 6.2 103/ul Normal 4.0-11.0 [facility] Comment on above: Performed By: #### B LDCX1 #### [facility] [address] [place] [address] Dr. Charlotte Argueta PROF CHEM 8 (BAS METB)on Anion gap [Moles/Vol] 11.1 mmol/L Normal [facility] Comment on above: Performed By: #### C MP #### [facility] [address] [place] [address] Dr. Charlotte Argueta Calcium [Mass/Vol] 8.5 mg/dL Normal 8.5-10.1 [facility] Comment on above: Performed By: #### C MP #### [facility] [address] [place] [address] Dr. Charlotte Argueta Chloride [Moles/Vol] 107 mmol/L Normal 98-107 [facility] Comment on above: Performed By: #### C MP #### [facility] [address] [place] [address] Dr. Charlotte Argueta CO2 [Moles/Vol] 26.9 mmol/L Normal 21.0-32.0 [facility] Comment on above: Performed By: #### C MP #### [facility] [address] [place] [address] Dr. Charlotte Argueta Creatinine [Mass/Vol] 1.53 mg/dL Critically high 0.55-1.02 [facility] Comment on above: Performed By: #### C MP #### [facility] [address] [address] [address] Charlotte Argueta EGFR-AF BAR[place]IAN 40 mL/min/1.73m2 Critically low >=60 [facility] Comment on above: Performed By: #### C MP #### [facility] [address] [address] [address] Charlotte Argueta EGFR-NON AF [place] 33 mL/min/1.73m2 Critically low >=60 [facility] Comment on above: Performed By: #### C MP #### [facility] [address] [address] [address] Charlotte Argueta Glucose [Mass/Vol] 93 mg/dL Normal 74-106 [facility] Comment on above: Performed By: #### C MP #### [facility] [address] [address] [address] Charlotte Argueta Potassium [Moles/Vol] 4.0 mmol/L Normal 3.5-5.1 [facility] Comment on above: Performed By: #### C MP #### [facility] [address] [address] [address] Charlotte Argueta Sodium [Moles/Vol] 141 mmol/L Normal 136-145 [facility] Comment on above: Performed By: #### C MP #### [facility] [address] [address] [address] Charlotte Argueta Urea nitrogen [Mass/Vol] 33.0 mg/dL Critically high 7.0-18.0 [facility] Comment on above: Performed By: #### C MP #### [facility] [address] [address] [address] Charlotte Argueta Urea nitrogen/Creatinine [Mass ratio] 21.6 mg/mg Normal [facility] Comment on above: Performed By: #### C MP #### [facility] [address] [address] [address] Charlotte Argueta CBC AUTO DIFFon 01-22-2022 BASO # 0.0 103/ul Normal 0.0-0.1 [facility] Comment on above: Performed By: #### B [id number] #### [facility] [address] [place] [address] Dr. Charlotte Argueta Basophils/100 WBC (Bld) 0.6 % Normal 0.2-2.0 [facility] Comment on above: Performed By: #### B LDCX1 #### [facility] [address] [place] [address] Dr. Charlotte Argueta EO # 0.6 103/ul Normal 0.0-0.7 [facility] Comment on above: Performed By: #### B [id number] #### [facility] [address] [place] [address] Dr. Charlotte Argueta Eosinophils/100 WBC (Bld) 8.8 % Critically high 0.9-7.0 [facility] Comment on above: Performed By: #### B LDCX1 #### [facility] [address] [place] [address] Dr. Charlotte Argueta Erythrocyte distribution width (RBC) [Ratio] 14.3 % Normal 11.0-15.0 [facility] Comment on above: Performed By: #### B LDCX1 #### [facility] [address] [place] [address] Dr. Charlotte Argueta Hematocrit (Bld) [Volume fraction] 29.2 % Critically low 36.0-48.0 [facility] Comment on above: Performed By: #### B LDCX1 #### [facility] [address] [place] [address] Dr. Charlotte Argueta Hemoglobin (Bld) [Mass/Vol] 9.2 g/dL Critically low 12.0-16.0 [facility] Comment on above: Performed By: #### B LDCX1 #### [facility] [address] [place] [address] Dr. Charlotte Argueta IG # 0.03 10e3/ul Normal 0.00-0.03 [facility] Comment on above: Performed By: #### B LDCX1 #### [facility] [address] [place] [address] Dr. Charlotte Argueta IG % 0.5 % Normal 0.0-0.5 [facility] Comment on above: Performed By: #### B [id number] #### [facility] [address] [address] [address] Charlotte Argueta LYMPH # 1.8 103/ul Normal 1.2-3.8 [facility] Comment on above: Performed By: #### B LDCX1 #### [facility] [address] [place] [address] Dr. Charlotte Argueta Lymphocytes/100 WBC (Bld) 27.5 % Normal 20.5-60.0 [facility] Comment on above: Performed By: #### B LDCX1 #### [facility] [address] [place] [address] Dr. Charlotte Argueta MANUAL DIFF REQ NO Normal [facility] Comment on above: Performed By: #### B LDCX1 #### [facility] [address] [place] [address] Dr. Charlotte Argueta MCH (RBC) [Entitic mass] 30.1 pg Normal 26.7-34.0 [facility] Comment on above: Performed By: #### B LDCX1 #### [facility] [address] [place] [address] Dr. Charlotte Agrueta MCHC (RBC) [Mass/Vol] 31.5 g/dL Normal 29.9-35.2 [facility] Comment on above: Performed By: #### B LDCX1 #### [facility] [address] [place] [address] Dr. Charlotte Argueta MCV (RBC) [Entitic vol] 95.4 fL Normal 81.0-99.0 [facility] Comment on above: Performed By: #### B LDCX1 #### [facility] [address] [place] [address] Dr. Charlotte Argueta MONO # 0.6 103/ul Normal 0.3-0.8 [facility] Comment on above: Performed By: #### B LDCX1 #### [facility] [address] [place] [address] Dr. Charlotte Argueta Monocytes/100 WBC (Bld) 9.7 % Normal 1.7-12.0 [facility] Comment on above: Performed By: #### B LDCX1 #### [facility] [address] [address] [address] Charlotte Argueta NEUT # 3.5 103/ul Normal 1.4-6.5 [facility] Comment on above: Performed By: #### B LDCX1 #### [facility] [address] [place] [address] Dr. Charlotte Argueta Neutrophils/100 WBC (Bld) 52.9 % Normal 43.0-75.0 [facility] Comment on above: Performed By: #### B LDCX1 #### [facility] [address] [place] [address] Dr. Charlotte Argueta Platelet mean volume (Bld) [Entitic vol] 10.0 fL Normal 9.5-13.5 [facility] Comment on above: Performed By: #### B LDCX1 #### [facility] [address] [place] [address] Dr. Charlotte Argueta PLT 380 103/ul Normal 150-450 [facility] Comment on above: Performed By: #### B LDCX1 #### [facility] [address] [place] [address] Dr. Charlotte Argueta RBC 3.06 106/ul Critically low 4.20-5.40 [facility] Comment on above: Performed By: #### B LDCX1 #### [facility] [address] [place] [address] Dr. Charlotte Argueta WBC 6.6 103/ul Normal 4.0-11.0 [facility] Comment on above: Performed By: #### B LDCX1 #### [facility] [address] [place] [address] Dr. Charlotte Argueta BNPon 01-21-2022 Natriuretic peptide B (Bld) [Mass/Vol] 1068.0 pg/mL Normal <=1,800.0 [facility] Comment on above: Performed By: #### I NFLUAB #### [facility] [address] [place] [address] Dr. Charlotte Argueta CARDIAC DRE 3-6on 2 CK [Catalytic activity/Vol] 80 U/L Normal 26-192 [facility] Comment on above: Result Comment: SPEC IMEN SLIGHTLY HEMOLYZED MAY AFFECT CK Performed By: #### B LDCX1 #### [facility] [address] [place] [address] Dr. Charlotte Argueta CK.MB [Mass/Vol] 0.55 ng/mL Normal <=3.60 [facility] Comment on above: Performed By: #### B LDCX1 #### [facility] [address] [place] [address] Dr. Charlotte Argueta HSTROP 7.8 pg/mL Normal 4.0-51.3 [facility] Comment on above: Result Comment: CUT- OFF POINTS HAVE BEEN ESTABLISHED BASED ON THE FOURTH UNIVERSAL DEFINITIONS OF MYOCARDIAL INFARCTION. THE UPPER REFERENCE LIMIT (URL) OF TROPONIN, DEFINED THE 99TH PERCENTILE OF cTnI DISTRIBUTION IN A REFERENCE POPULATION, HAS BEEN CONFIRMED THE DECISION THRESHOLD FOR KS DIAGNOSIS. Performed By: #### B LDCX1 #### [facility] [address] [place] [address] Dr. Charlotte Argueta CK [Catalytic activity/Vol] 45 U/L Normal 26-192 [facility] Comment on above: Performed By: #### C MREP #### [facility] [address] [place] [address] Dr. Charlotte Argueta CK.MB [Mass/Vol] 0.64 ng/mL Normal <=3.60 [facility] Comment on above: Performed By: #### C MREP #### [facility] [address] [place] [address] Dr. Charlotte Argueta HSTROP 9.2 pg/mL Normal 4.0-51.3 [facility] Comment on above: Result Comment: CUT- OFF POINTS HAVE BEEN ESTABLISHED BASED ON THE FOURTH UNIVERSAL DEFINITIONS OF MYOCARDIAL INFARCTION. THE UPPER REFERENCE LIMIT (URL) OF TROPONIN, DEFINED THE 99TH PERCENTILE OF cTnI DISTRIBUTION IN A REFERENCE POPULATION, HAS BEEN CONFIRMED THE DECISION THRESHOLD FOR KS DIAGNOSIS. Performed By: #### C MREP #### [facility] [address] [place] [address] Dr. Charlotte Argueta CARDIAC DRE ADMITon 022 CK [Catalytic activity/Vol] 41 U/L Normal 26-192 [facility] Comment on above: Performed By: #### T MARY, FT3 #### [facility] [address] [place] [address] Dr. Charlotte Argueta CK.MB [Mass/Vol] ng/mL Normal <=3.60 [facility] Comment on above: Performed By: #### T MARY, FT3 #### [facility] [address] [place] [address] Dr. Charlotte Argueta HSTROP 10.1 pg/mL Normal 4.0-51.3 [facility] Comment on above: Result Comment: CUT- OFF POINTS HAVE BEEN ESTABLISHED BASED ON THE FOURTH UNIVERSAL DEFINITIONS OF MYOCARDIAL INFARCTION. THE UPPER REFERENCE LIMIT (URL) OF TROPONIN, DEFINED THE 99TH PERCENTILE OF cTnI DISTRIBUTION IN A REFERENCE POPULATION, HAS BEEN CONFIRMED THE DECISION THRESHOLD FOR KS DIAGNOSIS. Performed By: #### T MARY, FT3 #### [facility] [address] [place] [address] Dr. Charlotte Argueta RICH 50 ng/mL Normal 9-82 [facility] Comment on above: Performed By: #### T MARY, FT3 #### [facility] [address] [place] [address] Dr. Charlotte Argueta CBC AUTO DIFFon 01-21-2022 BASO # 0.1 103/ul Normal 0.0-0.1 [facility] Comment on above: Performed By: #### Andi HERNANDEZ, FT3 #### [facility] [address] [place] [address] Dr. Charlotte Argueta Basophils/100 WBC (Bld) 0.8 % Normal 0.2-2.0 [facility] Comment on above: Performed By: #### T MARY, FT3 #### [facility] [address] [place] [address] Dr. Charlotte Argueta EO # 0.5 103/ul Normal 0.0-0.7 [facility] Comment on above: Performed By: #### T MARY, FT3 #### [facility] [address] [place] [address] Dr. Charlotte Argueta Eosinophils/100 WBC (Bld) 8.5 % Critically high 0.9-7.0 [facility] Comment on above: Performed By: #### T SH, FT3 #### [facility] [address] [place] [address] Dr. Charlotte Argueta Erythrocyte distribution width (RBC) [Ratio] 13.9 % Normal 11.0-15.0 [facility] Comment on above: Performed By: #### T SH, FT3 #### [facility] [address] [place] [address] Dr. Charlotte Argueta Hematocrit (Bld) [Volume fraction] 33.9 % Critically low 36.0-48.0 [facility] Comment on above: Performed By: #### T MARY, FT3 #### [facility] [address] [place] [address] Dr. Charlotte Argueta Hemoglobin (Bld) [Mass/Vol] 10.7 g/dL Critically low 12.0-16.0 [facility] Comment on above: Performed By: #### T SH, FT3 #### [facility] [address] [place] [address] Dr. Charlotte Argueta IG # 0.03 10e3/ul Normal 0.00-0.03 [facility] Comment on above: Performed By: #### T MARY, FT3 #### [facility] [address] [place] [address] Dr. Charlotte Argueta IG % 0.5 % Normal 0.0-0.5 [facility] Comment on above: Performed By: #### T SH, FT3 #### [facility] [address] [place] [address] Dr. Charlotte Argueta LYMPH # 1.6 103/ul Normal 1.2-3.8 [facility] Comment on above: Performed By: #### T SH, FT3 #### [facility] [address] [place] [address] Dr. Charlotte Argueta Lymphocytes/100 WBC (Bld) 25.4 % Normal 20.5-60.0 [facility] Comment on above: Performed By: #### T SH, FT3 #### [facility] [address] [place] [address] Dr. Charlotte Argueta MANUAL DIFF REQ NO Normal [facility] Comment on above: Performed By: #### T SH, FT3 #### [facility] [address] [place] [address] Dr. Charlotte Argueta MCH (RBC) [Entitic mass] 30.1 pg Normal 26.7-34.0 [facility] Comment on above: Performed By: #### T SH, FT3 #### [facility] [address] [place] [address] Dr. Charlotte Argueta MCHC (RBC) [Mass/Vol] 31.6 g/dL Normal 29.9-35.2 [facility] Comment on above: Performed By: #### T SH, FT3 #### [facility] [address] [place] [address] Dr. Charlotte Argueta MCV (RBC) [Entitic vol] 95.2 fL Normal 81.0-99.0 [facility] Comment on above: Performed By: #### T , FT3 #### [facility] [address] [place] [address] Dr. Charlotte Argueta MONO # 0.6 103/ul Normal 0.3-0.8 [facility] Comment on above: Performed By: #### T , FT3 #### [facility] [address] [place] [address] Dr. Charlotte Argueta Monocytes/100 WBC (Bld) 9.6 % Normal 1.7-12.0 [facility] Comment on above: Performed By: #### T , FT3 #### [facility] [address] [place] [address] Dr. Charlotte Argueta NEUT # 3.5 103/ul Normal 1.4-6.5 [facility] Comment on above: Performed By: #### T SH, FT3 #### [facility] [address] [place] [address] Dr. Charlotte Argueta Neutrophils/100 WBC (Bld) 55.2 % Normal 43.0-75.0 [facility] Comment on above: Performed By: #### T SH, FT3 #### [facility] [address] [address] [address] Charlotte Argueta Platelet mean volume (Bld) [Entitic vol] 9.5 fL Normal 9.5-13.5 [facility] Comment on above: Performed By: #### T SH, FT3 #### [facility] [address] [address] [address] Charlotte Argueta PLT 408 103/ul Normal 150-450 [facility] Comment on above: Performed By: #### T SH, FT3 #### [facility] [address] [address] [address] Charlotte Argueta RBC 3.56 106/ul Critically low 4.20-5.40 [facility] Comment on above: Performed By: #### T SH, FT3 #### [facility] [address] [address] [address] Charlotte Argueta WBC 6.3 103/ul Normal 4.0-11.0 [facility] Comment on above: Performed By: #### T SH, FT3 #### [facility] [address] [address] [address] Charlotte Argueta [facility] SARS-CoV-2 (COVID-19) RNA DANNY+probe Ql (Unsp spec) Not detected Normal NOT DETECTED [facility] Comment on above: Result Comment: When diagnostic [...] for this test is supported by the [place] of Health and Human Service's declaration that [...] Performed By: #### T SH, FT3 #### [facility] [address] [place] [address] Dr. Charlotte Argueta FREE T3on 01-21-2022 FREE T3 1.38 pg/mlL Critically low 2.18-3.98 [facility] Comment on above: Performed By: #### T SH, FT3 #### [facility] [address] [place] [address] Dr. Charlotte Argueta FREE T4on 01-21-2022 Free T4 [Mass/Vol] 1.17 ng/dL Normal 0.76-1.46 [facility] Comment on above: Performed By: #### I NFLUAB #### [facility] [address] [place] [address] Dr. Charlotte Argueta IRON AND TIBCon 01-21-2022 % SATURATION 21.2 % Normal [facility] Comment on above: Performed By: #### C MREP #### [facility] [address] [place] [address] Dr. Charlotte Argueta Iron [Mass/Vol] 72.0 ug/dL Normal 50.0-170.0 [facility] Comment on above: Performed By: #### C MREP #### [facility] [address] [place] [address] Dr. Charlotte Argueta TIBC DIRECT 340.0 ug/dL Normal 250.0-450.0 [facility] Comment on above: Performed By: #### C MREP #### [facility] [address] [place] [address] Dr. Charlotte Argueta LIVER PROFILEon 01-21-2022 Albumin [Mass/Vol] 3.3 g/dL Critically low 3.4-5.0 [facility] Comment on above: Performed By: #### L IVER #### [facility] [address] [place] [address] Dr. Charlotte Argueta Albumin/Globulin [Mass ratio] 0.9 {ratio} Normal [facility] Comment on above: Performed By: #### L IVER #### [facility] [address] [address] [address] Charlotte Argueta ALP [Catalytic activity/Vol] 71 U/L Normal 46-116 [facility] Comment on above: Performed By: #### L IVER #### [facility] [address] [address] [address] Charlotte Argueta ALT [Catalytic activity/Vol] 23 U/L Normal 14-59 [facility] Comment on above: Performed By: #### L IVER #### [facility] [address] [address] [address] Charlotte Argueta AST [Catalytic activity/Vol] 23 U/L Normal 15-37 [facility] Comment on above: Performed By: #### L IVER #### [facility] [address] [address] [address] Charlotte Argueta BILI, CONJUGATED 0.1 mg/dL Normal 0.0-0.2 [facility] Comment on above: Performed By: #### L IVER #### [facility] [address] [address] [address] Charlotte Argueta Bilirubin [Mass/Vol] 0.3 mg/dL Normal 0.2-1.0 [facility] Comment on above: Performed By: #### L IVER #### [facility] [address] [address] [address] Charlotte Argueta Globulin (S) [Mass/Vol] 3.6 g/dL Normal [facility] Comment on above: Performed By: #### L IVER #### [facility] [address] [address] [address] Charlotte Argueta Protein [Mass/Vol] 6.9 g/dL Normal 6.4-8.2 [facility] Comment on above: Performed By: #### L IVER #### [facility] [address] [address] [address] Charlotte Argueta PROF CHEM 8 (BAS METB)on Anion gap [Moles/Vol] 15.1 mmol/L Normal [facility] Comment on above: Performed By: #### T SH, FT3 #### [facility] [address] [place] [address] Dr. Charlotte Argueta Calcium [Mass/Vol] 8.7 mg/dL Normal 8.5-10.1 [facility] Comment on above: Performed By: #### T SH, FT3 #### [facility] [address] [place] [address] Dr. Charlotte Argueta Chloride [Moles/Vol] 100 mmol/L Normal 98-107 [facility] Comment on above: Performed By: #### T SH, FT3 #### [facility] [address] [place] [address] Dr. Charlotte Argueta CO2 [Moles/Vol] 25.2 mmol/L Normal 21.0-32.0 [facility] Comment on above: Performed By: #### T SH, FT3 #### [facility] [address] [place] [address] Dr. Charlotte Argueta Creatinine [Mass/Vol] 1.60 mg/dL Critically high 0.55-1.02 [facility] Comment on above: Performed By: #### T SH, FT3 #### [facility] [address] [place] [address] Dr. Charlotte Argueta EGFR-AF BARBADIAN 38 mL/min/1.73m2 Critically low >=60 [facility] Comment on above: Performed By: #### T SH, FT3 #### [facility] [address] [place] [address] Dr. Charlotte Argueta EGFR-NON AF BARBADIAN 31 mL/min/1.73m2 Critically low >=60 [facility] Comment on above: Performed By: #### T SH, FT3 #### [facility] [address] [place] [address] Dr. Charlotte Argueta Glucose [Mass/Vol] 105 mg/dL Normal 74-106 [facility] Comment on above: Performed By: #### T SH, FT3 #### [facility] [address] [place] [address] Dr. Charlotte Argueta Potassium [Moles/Vol] 4.3 mmol/L Normal 3.5-5.1 [facility] Comment on above: Performed By: #### T MARY, FT3 #### [facility] [address] [place] [address] Dr. Charlotte Argueta Sodium [Moles/Vol] 136 mmol/L Normal 136-145 [facility] Comment on above: Performed By: #### T MARY, FT3 #### [facility] [address] [place] [address] Dr. Charlotte Argueta Urea nitrogen [Mass/Vol] 36.0 mg/dL Critically high 7.0-18.0 [facility] Comment on above: Performed By: #### T MARY, FT3 #### [facility] [address] [place] [address] Dr. Charlotte Argueta Urea nitrogen/Creatinine [Mass ratio] 22.5 mg/mg Normal [facility] Comment on above: Performed By: #### T MARY, FT3 #### [facility] [address] [place] [address] Dr. Charlotte Argueta PROTIMEon 01-21-2022 INR Coag (PPP) [Relative time] {INR} Normal [facility] Comment on above: Performed By: #### T MARY, FT3 #### [facility] [address] [place] [address] Dr. Charlotte Argueta INR GUIDELINES SEE BELOW Normal [facility] Comment on above: Result Comment: CORI RED INR: 2.0 - 3.0 CONDITIONS NOT LISTED BELOW 2.5 - 3.5 FOR PROSTHETIC HEART VALVE REPLACEMENT 2.5 - 3.5 RECURRENT THROMBOSIS Performed By: #### T MARY, FT3 #### [facility] [address] [place] [address] Dr. Charlotte Argueta PT Coag (PPP) [Time] 9.6 s Normal 9.0-11.6 [facility] Comment on above: Performed By: #### T MARY, FT3 #### [facility] [address] [place] [address] Dr. Charlotte Argueta PTTon 05-21-2022 aPTT Coag (Bld) [Time] 23.1 s Normal 22.3-36.2 [facility] Comment on above: Performed By: #### L IVER #### [facility] [address] [place] [address] Dr. Charlotte Argueta TSHon 01-21-2022 TSH 6.405 uIU/mL Critically high 0.358-3.740 [facility] Comment on above: Performed By: #### T SH, FT3 #### [facility] [address] [place] [address] Dr. Charlotte Argueta TSH RANGE SEE BELOW Normal [facility] Comment on above: Result Comment: <0.3 4 UIU/ml HYPERTHYROID 0.34-5.60 UIU/ml EUTHYROID >5.60 UIU/ml HYPOTHYROID Performed By: #### T SH, FT3 #### [facility] [address] [place] [address] Dr. 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 Charlotte Argueta Clarity (U) CLEAR Normal CLEAR [facility] Comment on above: Performed By: #### C MP #### [facility] [address] [place] [address] Dr. Charlotte Argueta Color (U) LT. YELLOW Normal YELLOW [facility] Comment on above: Performed By: #### C MP #### [facility] [address] [place] [address] Dr. Charlotte Argueta Glucose Ql (U) Negative Normal NEGATIVE [facility] Comment on above: Performed By: #### C MP #### [facility] [address] [place] [address] Dr. Charlotte Argueta Hemoglobin Ql (U) Negative Normal NEGATIVE [facility] Comment on above: Performed By: #### C MP #### [facility] [address] [place] [address] Dr. Charlotte Argueta Ketones Ql (U) Negative Normal NEGATIVE [facility] Comment on above: Performed By: #### C MP #### [facility] [address] [place] [address] Dr. Charlotte Argueta LEUKOCYTES Negative Normal NEGATIVE [facility] Comment on above: Performed By: #### C MP #### [facility] [address] [place] [address] Dr. Charlotte Argueta Nitrite Ql (U) Negative Normal NEGATIVE [facility] Comment on above: Performed By: #### C MP #### [facility] [address] [place] [address] Dr. Charlotte Argueta pH (U) 6.5 [pH] Normal 5-9 [facility] Comment on above: Performed By: #### C MP #### [facility] [address] [place] [address] Dr. Charlotte Argueta SPEC GRAVITY <=1.005 Abnormal 1.005-<=1.025 [facility] Comment on above: Performed By: #### C MP #### [facility] [address] [place] [address] Dr. Charlotte Argueta UA PROTEIN Negative Normal NEGATIVE/ TRACE [facility] Comment on above: Performed By: #### C MP #### [facility] [address] [place] [address] Dr. Charlotte Argueta UR MICRO IND NOT INDICATED Normal [facility] Comment on above: Performed By: #### C MP #### [facility] [address] [place] [address] Dr. Charlotte Argueta Urobilinogen Qn (U) 0.2 {Kathia'U}/dL Normal 0.2 - 1. 0 [facility] Comment on above: Performed By: #### C MP #### [facility] [address] [place] [address] Dr. Charlotte Argueta VIT B12 AND FOLATEon 022 Cobalamin (Vitamin B12) [Mass/Vol] 163.0 pg/mL Critically low 193.0-986.0 [facility] Comment on above: Performed By: #### C MREP #### [facility] [address] [address] [address] Charlotte Argueta FOLATE 19.30 ng/mL Normal 8.60-58.90 [facility] Comment on above: Performed By: #### C MREP #### [facility] [address] [place], [place] [address] Dr. Charlotte Argueta VITAMIN D 25 OHon 01-21-2022 VIT D 25-OH 24.9 ng/mL Normal [facility] Comment on above: Performed By: #### I NFLUAB #### [facility] [address] [place], [place] [address] Dr. Charlotte Argueta VIT D RANGES SEE BELOW Normal [facility] Comment on above: Result Comment: <20 ng/mL Vit D deficient 20 - <30 ng/mL Vit D insufficient 30 - 100 ng/mL Vit D sufficient >100 ng/mL Potential Toxicity Performed By: #### I NFLUAB #### [facility] [address] [address] [address] Charlotte Argueta XR CHEST 1 Von [...] BETH SAID Date: 2022-01-21 06:32 Normal [facility] XR hip RT min 2V(w/wo pelvis )*on 03-30-2021 XR hip RT min 2V(w/wo pelvis)* [facility] [place] [address] [place], [place] [id number] XRay Report Signed Patient: Emy Cheatham MR#: [id number] : 1945 Acct:[id number] Age/Sex: 75 / F ADM Date: 03/30/21 [...] Dre Alexander M.D.03/30/2021 2:57 PM Dictation Location: [place] [address] Transcribed By: [facility] 03/30/21 145 Dictated By: Dre Alexander II, MD 03/30/211454 Signed By: 03/30/[address] [facility] CBC COMPLETE BLOOD COUNTon 09-16-2018 Erythrocyte distribution width (RBC) [Ratio] 16.3 % High 11.5-15.0 [facility] Comment on above: Order Comment: No: D o not add to previous drawNurse draw per farooq dunham Performed By: #### 4 1000, 33524, 24919, 57917, 47493, 94748, 81828 #### [facility] [address] [place] [address], [facility] Hematocrit (Bld) [Volume fraction] 26.9 % Low 36.0-45.0 [facility] Comment on above: Order Comment: No: D o not add to previous drawNurse draw per farooq dunham Performed By: #### 4 1000, 17429, 74512, 87288, 60082, 24141, 96815 #### [facility] [address] [place] [address], [facility] Hemoglobin (Bld) [Mass/Vol] 8.4 g/dL Low 12.0-15.0 [facility] Comment on above: Order Comment: No: D o not add to previous drawNurse draw per rn charla Performed By: #### 4 1000, 92837, 24797, 53376, 61968, 65559, 52707 #### [facility] [address] [place] [address], [facility] MCH (RBC) [Entitic mass] 27.4 pg Normal 27.0-33.0 [facility] Comment on above: Order Comment: No: D o not add to previous drawNurse draw per rn charla Performed By: #### 4 1000, 97474, 22260, 98285, 34169, 38842, 85642 #### [facility] [address] [facility] [place] [address], [facility] MCHC (RBC) [Mass/Vol] 31.2 g/dL Low 32.0-35.0 [facility] Comment on above: Order Comment: No: D o not add to previous drawNurse draw per rn charla Performed By: #### 4 1000, 09825, 22210, 42530, 00415, 90287, 11336 #### [facility] [address] [facility] [place] [place] [address], [facility] MCV (RBC) [Entitic vol] 87.6 fL Normal 82.0-98.0 [facility] Comment on above: Order Comment: No: D o not add to previous drawNurse draw per rn charla Performed By: #### 4 1000, 98349, 38935, 53570, 87922, 87543, 36911 #### [facility] [address] [place] [address], [facility] Nucleated RBC/100 WBC (Bld) [Ratio] 0 % Normal 0-0 [facility] Comment on above: Order Comment: No: D o not add to previous drawNurse draw per rn charla Performed By: #### 4 1000, 13916, 30666, 77910, 52320, 13598, 39828 #### [facility] [address] [place] [address], [facility] PLAT CNT 838 10*3/uL High 150-400 [facility] Comment on above: Order Comment: No: D o not add to previous drawNurse draw per rn charla Performed By: #### 4 1000, 06327, 95333, 78477, 97136, 03517, 94950 #### [facility] [address] [place] [address], [facility] RBC (Bld) [#/Vol] 3.07 10*6/uL Low 3.80-5.00 [facility] Comment on above: Order Comment: No: D o not add to previous drawNurse draw per rn charla Performed By: #### 4 1000, 21496, 53317, 52205, 43110, 50556, 45088 #### [facility] [address] [place] [address], [facility] WBC (Bld) [#/Vol] 8.82 10*3/uL Normal 4.00-10.60 [facility] Comment on above: Order Comment: No: D o not add to previous drawNurse draw per rn charla Performed By: #### 4 1000, 72554, 53227, 43632, 77857, 90805, 41595 #### [facility] [address] [place] [address], [facility] CBC COMPLETE BLOOD COUNTon 09-15-2018 Erythrocyte distribution width (RBC) [Ratio] 15.9 % High 11.5-15.0 [facility] Comment on above: Order Comment: No: D o not add to previous draw Performed By: #### 4 1000, 96469, 92836, 02730, 05551, 83802, 82301 #### [facility] [address] [place] [address], [facility] Hematocrit (Bld) [Volume fraction] 26.5 % Low 36.0-45.0 [facility] Comment on above: Order Comment: No: D o not add to previous draw Performed By: #### 4 1000, 20386, 54419, 75972, 44054, 83262, 01140 #### [facility] [address] [place] [address], [facility] Hemoglobin (Bld) [Mass/Vol] 8.3 g/dL Low 12.0-15.0 [facility] Comment on above: Order Comment: No: D o not add to previous draw Performed By: #### 4 1000, 20695, 74578, 96465, 06112, 85513, 80435 #### [facility] [address] [facility] [place] [address], [facility] MCH (RBC) [Entitic mass] 26.9 pg Low 27.0-33.0 [facility] Comment on above: Order Comment: No: D o not add to previous draw Performed By: #### 4 1000, 88040, 89397, 18674, 17345, 81361, 13676 #### [facility] [address] [facility] [place] [address], [facility] MCHC (RBC) [Mass/Vol] 31.3 g/dL Low 32.0-35.0 [facility] Comment on above: Order Comment: No: D o not add to previous draw Performed By: #### 4 1000, 29527, 61715, 40402, 99417, 22906, 66441 #### [facility] [address] [facility] [place] [address], [facility] MCV (RBC) [Entitic vol] 85.8 fL Normal 82.0-98.0 [facility] Comment on above: Order Comment: No: D o not add to previous draw Performed By: #### 4 1000, 51986, 73909, 06525, 78360, 43300, 99439 #### [facility] [address] [place] [address], [facility] Nucleated RBC/100 WBC (Bld) [Ratio] 0 % Normal 0-0 [facility] Comment on above: Order Comment: No: D o not add to previous draw Performed By: #### 4 1000, 44758, 89279, 41715, 22653, 56716, 40781 #### [facility] [address] [place] [address], [facility] PLAT CNT 881 10*3/uL High 150-400 [facility] Comment on above: Order Comment: No: D o not add to previous draw Performed By: #### 4 1000, 40969, 69016, 42685, 62061, 79345, 63403 #### [facility] [address] [facility] [place] [address], [facility] RBC (Bld) [#/Vol] 3.09 10*6/uL Low 3.80-5.00 [facility] Comment on above: Order Comment: No: D o not add to previous draw Performed By: #### 4 1000, 32886, 00607, 28428, 83554, 05551, 26212 #### [facility] [address] [place] [address], [facility] WBC (Bld) [#/Vol] 10.95 10*3/uL High 4.00-10.60 [facility] Comment on above: Order Comment: No: D o not add to previous draw Performed By: #### 4 1000, 46269, 36612, 34861, 29271, 83568, 38751 #### [facility] [address] [facility] [place] [address], [facility] MAGNESIUM BLOODon 07-16-2019 Magnesium [Mass/Vol] 1.7 mg/dL Low 1.9-2.7 [facility] Comment on above: Order Comment: No: D o not add to previous draw Performed By: #### 4 1000, 11383, 82448, 42624, 58824, 11282, 68232 #### [facility] [address] [place] [address], [place] BASIC METABOLIC PANELon 11- Calcium [Mass/Vol] 8.8 mg/dL Normal 8.6-10.3 [facility] Comment on above: Order Comment: No: D o not add to previous draw Performed By: #### 4 1000, 86882, 35535, 77942, 75074, 55805, 44108 #### [facility] [address] [place] [address], [place] Chloride [Moles/Vol] 104 mmol/L Normal 98-107 [facility] Comment on above: Order Comment: No: D o not add to previous draw Performed By: #### 4 1000, 11482, 87008, 53987, 54489, 78598, 73570 #### [facility] [address] [place] [address], [place] CO2 [Moles/Vol] 28 mmol/L Normal 21-31 [facility] Comment on above: Order Comment: No: D o not add to previous draw Performed By: #### 4 1000, 91854, 47739, 17170, 52773, 45810, 00581 #### [facility] [address] [place] [address], [place] Creatinine [Mass/Vol] 0.57 mg/dL Low 0.60-1.20 [facility] Comment on above: Order Comment: No: D o not add to previous draw Performed By: #### 4 1000, 46099, 69988, 88790, 79468, 30706, 07566 #### [facility] [address] [place] [address], [place] GFR/1.73 sq M predicted among blacks MDRD (S/P/Bld) [Vol rate/Area] mL/min/{1.73_m2} Normal >60 [facility] Comment on above: Order Comment: No: D o not add to previous draw Result Comment: Calc ulation may not be valid for patients over 70 years Performed By: #### 4 1000, 68438, 31025, 76078, 42026, 63795, 52680 #### [facility] [address] [place] [address], [place] GFR/1.73 sq M predicted among non-blacks MDRD (S/P/Bld) [Vol rate/Area] mL/min/{1.73_m2} Normal >60 [facility] Comment on above: Order Comment: No: D o not add to previous draw Result Comment: Calc ulation may not be valid for patients over 70 years Performed By: #### 4 1000, 28311, 41772, 29502, 49528, 61953, 03524 #### [facility] [address] [place] [address], [place] Glucose [Mass/Vol] 80 mg/dL Normal 70-100 [facility] Comment [facility]: Order Comment: No: D o not add to previous draw Performed By: #### 4 1000, 57171, 42417, 49337, 39723, 22097, 42816 #### [facility] [address] [place] [address], [place] Potassium [Moles/Vol] 3.9 mmol/L Normal 3.5-5.1 [facility] Comment on above: Order Comment: No: D o not add to previous draw Performed By: #### 4 1000, 83616, 71239, 34902, 54376, 22788, 89186 #### [facility] [address] [place] [address], [place] Sodium [Moles/Vol] 139 mmol/L Normal 136-145 [facility] Comment on above: Order Comment: No: D o not add to previous draw Performed By: #### 4 1000, 71736, 80577, 87220, 76337, 78832, 96570 #### [facility] [address] [place] [address], [place] Urea nitrogen [Mass/Vol] 10 mg/dL Normal 7-25 [facility] Comment on above: Order Comment: No: D o not add to previous draw Performed By: #### 4 1000, 81589, 16245, 06195, 88443, 65970, 92588 #### [facility] [address] [place] [address], [facility] C REACTIVE PROTEINon 019 CRP [Mass/Vol] 19.7 mg/L High 0.0-7.0 [facility] Comment on above: Order Comment: No: D o not add to previous draw Performed By: #### 4 1000, 24691, 24650, 35185, 94880, 54527, 72413 #### [facility] [address] CBC W/DIFFon 07-15-2019 ABS BASOPHILS 0.0 10*3/uL Normal 0.0-0.2 [facility] Comment on above: Order Comment: No: D o not add to previous draw Performed By: #### 4 1000, 21502, 27225, 22391, 40989, 17750, 82168 #### [facility] [address] [facility] [address] ABS NEUTROPHILS 7.9 10*3/uL High 1.6-7.6 The [facility] Comment on above: Order Comment: No: D o not add to previous draw Performed By: #### 4 1000, 03151, 85204, 06456, 91713, 26907, 35399 #### [facility] [address] [place] [address], [facility] Basophils/100 WBC (Bld) 0.0 % Normal 0.0-1.0 [facility] Comment on above: Order Comment: No: D o not add to previous draw Performed By: #### 4 1000, 06153, 28588, 17109, 33577, 28379, 18040 #### [facility] [address] [facility] [place] [address], [facility] Eosinophils (Bld) [#/Vol] 0.8 10*3/uL High 0.0-0.5 [facility] Comment on above: Order Comment: No: D o not add to previous draw Performed By: #### 4 1000, 84120, 46672, 01356, 50660, 01448, 83429 #### [facility] [address] [place] [address], [facility] Eosinophils/100 WBC (Bld) 7.2 % High 0.0-6.0 [facility] Comment on above: Order Comment: No: D o not add to previous draw Performed By: #### 4 1000, 12456, 83606, 14675, 17017, 70624, 73717 #### [facility] [address] [facility] Erythrocyte distribution width (RBC) [Ratio] 15.9 % High 11.5-15.0 [facility] Comment on above: Order Comment: No: D o not add to previous draw Performed By: #### 4 1000, 70482, 79363, 31191, 13933, 85581, 54651 #### [facility] [address] [place] [address], [facility] GIANT PLATELETS Present Normal [facility] Comment on above: Order Comment: No: D o not add to previous draw Performed By: #### 4 1000, 65586, 46418, 88130, 04046, 97805, 80778 #### [facility] [address] [facility] [place] [address], [facility] Hematocrit (Bld) [Volume fraction] 27.0 % Low 36.0-45.0 [facility] Comment on above: Order Comment: No: D o not add to previous draw Performed By: #### 4 1000, 21780, 87751, 54063, 43009, 56783, 79052 #### [facility] [address] [facility] Hemoglobin (Bld) [Mass/Vol] 8.5 g/dL Low 12.0-15.0 [facility] Comment on above: Order Comment: No: D o not add to previous draw Performed By: #### 4 1000, 99856, 70629, 62321, 77120, 90391, 12629 #### [facility] [address] [place] [address], [facility] Lymphocytes (Bld) [#/Vol] 2.1 10*3/uL Normal 1.2-4.0 [facility] Comment on above: Order Comment: No: D o not add to previous draw Performed By: #### 4 1000, 53832, 88228, 24711, 62517, 63600, 62972 #### [facility] [address] [place] [address], [facility] Lymphocytes/100 WBC (Bld) 18.0 % Low 20.0-45.0 [facility] Comment on above: Order Comment: No: D o not add to previous draw Performed By: #### 4 1000, 17181, 11803, 57209, 70767, 78966, 76546 #### [facility] [address] [place] [address], [facility] MCH (RBC) [Entitic mass] 27.1 pg Normal 27.0-33.0 [facility] Comment on above: Order Comment: No: D o not add to previous draw Performed By: #### 4 1000, 03407, 47454, 91566, 58950, 72910, 11807 #### [facility] [address] [place] [id number], [facility] MCHC (RBC) [Mass/Vol] 31.5 g/dL Low 32.0-35.0 [facility] Comment on above: Order Comment: No: D o not add to previous draw Performed By: #### 4 1000, 71176, 48161, 40967, 62358, 65910, 77571 #### [facility] [address] [place] [address], [facility] MCV (RBC) [Entitic vol] 86.0 fL Normal 82.0-98.0 [facility] Comment on above: Order Comment: No: D o not add to previous draw Performed By: #### 4 1000, 81044, 42542, 08511, 42911, 65065, 79071 #### [facility] [address] [facility] [place] [address], [facility] Monocytes (Bld) [#/Vol] 1.0 10*3/uL Normal 0.1-1.0 [facility] Comment on above: Order Comment: No: D o not add to previous draw Performed By: #### 4 1000, 30605, 59962, 38028, 80898, 20167, 65194 #### [facility] [address] [place] [address], [facility] MONOS 8.1 % Normal 5.0-12.0 [facility] Comment on above: Order Comment: No: D o not add to previous draw Performed By: #### 4 1000, 07825, 65190, 66333, 02297, 74535, 30435 #### [facility] [address] [place] [address], [facility] Neutrophils/100 WBC (Bld) 66.7 % Normal 40.0-72.0 [facility] Comment on above: Order Comment: No: D o not add to previous draw Performed By: #### 4 1000, 76043, 20076, 95050, 11430, 17656, 24091 #### [facility] [address] [facility] [place] [address], [facility] Nucleated RBC/100 WBC (Bld) [Ratio] 0 % Normal 0-0 [facility] Comment on above: Order Comment: No: D o not add to previous draw Performed By: #### 4 1000, 17104, 63738, 83240, 93530, 94911, 86739 #### [facility] [address] [facility] [place] [address], [facility] PLAT CNT 888 10*3/uL High 150-400 [facility] Comment on above: Order Comment: No: D o not add to previous draw Performed By: #### 4 1000, 35367, 94384, 81146, 10623, 65554, 43786 #### [facility] [address] [place] [address], [facility] RBC (Bld) [#/Vol] 3.14 10*6/uL Low 3.80-5.00 [facility] Comment on above: Order Comment: No: D o not add to previous draw Performed By: #### 4 1000, 68017, 75238, 79538, 65270, 09105, 82577 #### [facility] [address] WBC (Bld) [#/Vol] 11.78 10*3/uL High 4.00-10.60 [facility] Comment on above: Order Comment: No: D o not add to previous draw Performed By: #### 4 1000, 23519, 63206, 16292, 53908, 78561, 11764 #### [facility] 3000 [facility]. [address] MAGNESIUM BLOODon 07-15-2019 Magnesium [Mass/Vol] 1.6 mg/dL Low 1.9-2.7 [facility] Comment on above: Order Comment: No: D o not add to previous draw Performed By: #### 4 1000, 26157, 01591, 64584, 63975, 26768, 35412 #### [facility] 3000 [facility]. [address] Operative Reporton 9 Operative Report MR#: [id number] [facility] Pt. Name: Emy Cheatham Room #: [id number] Discharge Date: Birthdate: 1945 OPERATIVE REPORT DATE [...] the plate and had surgery done in [place], where the plate was removed and she [...] Ca MD Date Trans: 07/15/2019 01:09 Yudelka/anibal [id number] cc: Nasreen Mary M.D. [address] [place] [id number] [place] [facility] SEDIMENTATION RATEon 019 SED RATE 54 mm/hr High 0-20 [facility] Comment on above: Order Comment: No: D o not add to previous draw Performed By: #### 4 1000, 95392, 01645, 27107, 05594, 26881, 55807 #### [facility] [address] [place] [address], [facility] BASIC METABOLIC PANELon 07-04 Calcium [Mass/Vol] 8.5 mg/dL Low 8.6-10.3 [facility] Comment on above: Order Comment: No: D o not add to previous draw Performed By: #### 4 1000, 69568, 20439, 50046, 71927, 05259, 00886 #### [facility] [address] [place] [address], [facility] Chloride [Moles/Vol] 105 mmol/L Normal 98-107 [facility] Comment on above: Order Comment: No: D o not add to previous draw Performed By: #### 4 1000, 26645, 19324, 98796, 73759, 15878, 61362 #### [facility] [address] [place] [address], [place] CO2 [Moles/Vol] 21 mmol/L Normal 21-31 [facility] Comment on above: Order Comment: No: D o not add to previous draw Performed By: #### 4 1000, 04861, 24387, 98835, 73629, 31484, 64377 #### [facility] [address] [place] [address], [facility] Creatinine [Mass/Vol] 0.70 mg/dL Normal 0.60-1.20 [facility] Comment on above: Order Comment: No: D o not add to previous draw Performed By: #### 4 1000, 58564, 05394, 41702, 85863, 35812, 25520 #### [facility] [address] [place] [address], [facility] GFR/1.73 sq M predicted among blacks MDRD (S/P/Bld) [Vol rate/Area] mL/min/{1.73_m2} Normal >60 [facility] Comment on above: Order Comment: No: D o not add to previous draw Result Comment: Calc ulation may not be valid for patients over 70 years Performed By: #### 4 1000, 68382, 42585, 61763, 98503, 71111, 72276 #### [facility] [address] [place] [address], [place] GFR/1.73 sq M predicted among non-blacks MDRD (S/P/Bld) [Vol rate/Area] mL/min/{1.73_m2} Normal >60 [facility] Comment on above: Order Comment: No: D o not add to previous draw Result Comment: Calc ulation may not be valid for patients over 70 years Performed By: #### 4 1000, 88046, 17865, 98885, 04386, 14618, 61597 #### [facility] [address] [place] [address], [place] Glucose [Mass/Vol] 120 mg/dL High 70-100 [facility] Comment on above: Order Comment: No: D o not add to previous draw Performed By: #### 4 1000, 86906, 82730, 91195, 06452, 67566, 67242 #### [facility] [address] [place] [address], [place] Potassium [Moles/Vol] 4.0 mmol/L Normal 3.5-5.1 [facility] Comment on above: Order Comment: No: D o not add to previous draw Performed By: #### 4 1000, 28444, 69139, 53235, 67184, 76102, 00610 #### [facility] [address] [place] [address], [place] Sodium [Moles/Vol] 136 mmol/L Normal 136-145 [facility] Comment on above: Order Comment: No: D o not add to previous draw Performed By: #### 4 1000, 77708, 60693, 34360, 25733, 97568, 38233 #### [facility] [address] [place] [address], [place] Urea nitrogen [Mass/Vol] 10 mg/dL Normal 7-25 [facility] Comment on above: Order Comment: No: D o not add to previous draw Performed By: #### 4 1000, 64487, 43330, 12786, 05290, 46662, 64564 #### [facility] [address] [place] [address], [place] C REACTIVE PROTEINon 11-11-2 019 CRP [Mass/Vol] 26.5 mg/L High 0.0-7.0 The [facility] Comment on above: Order Comment: No: D o not add to previous draw Performed By: #### 4 1000, 67018, 16087, 95804, 26120, 26102, 19303 #### [facility] 3000 [facility]. [address] CBC W/DIFFon 07-14-2019 ABS BASOPHILS 0.1 10*3/uL Normal 0.0-0.2 The [facility] Comment on above: Order Comment: No: D o not add to previous draw Performed By: #### 4 1000, 10288, 88495, 64910, 38839, 48823, 92602 #### [facility] [address] ABS IMM GRANS 1.2 10*3/uL High 0.0-0.2 [facility] Comment on above: Order Comment: No: D o not add to previous draw Performed By: #### 4 1000, 84845, 44292, 19387, 82607, 34569, 50204 #### [facility] 3000 [facility]. [address] ABS NEUTROPHILS 6.0 10*3/uL Normal 1.6-7.6 The [facility] Comment on above: Order Comment: No: D o not add to previous draw Performed By: #### 4 1000, 92645, 90675, 00814, 61958, 62781, 96923 #### [facility] 3000 [facility] [place] [address], [facility] Basophils/100 WBC (Bld) 0.8 % Normal 0.0-1.0 [facility] Comment on above: Order Comment: No: D o not add to previous draw Performed By: #### 4 1000, 50863, 02067, 86759, 17543, 91329, 76912 #### [facility] [address] [place] [address], [facility] Eosinophils (Bld) [#/Vol] 0.7 10*3/uL High 0.0-0.5 [facility] Comment on above: Order Comment: No: D o not add to previous draw Performed By: #### 4 1000, 99032, 58212, 37771, 65943, 70771, 32161 #### [facility] [address] [place] [address], [facility] Eosinophils/100 WBC (Bld) 6.8 % High 0.0-6.0 [facility] Comment on above: Order Comment: No: D o not add to previous draw Performed By: #### 4 1000, 98464, 43460, 35869, 80621, 02645, 72421 #### [facility] [address] [facility] [place] [address], [facility] Erythrocyte distribution width (RBC) [Ratio] 15.6 % High 11.5-15.0 [facility] Comment on above: Order Comment: No: D o not add to previous draw Performed By: #### 4 1000, 84877, 26158, 36773, 21902, 40241, 47771 #### [facility] [address] [facility] [place] [address], [facility] Hematocrit (Bld) [Volume fraction] 31.9 % Low 36.0-45.0 [facility] Comment on above: Order Comment: No: D o not add to previous draw Performed By: #### 4 1000, 89022, 41642, 88158, 51956, 07858, 99218 #### [facility] [address] [place] [address], [facility] Hemoglobin (Bld) [Mass/Vol] 9.7 g/dL Low 12.0-15.0 [facility] Comment on above: Order Comment: No: D o not add to previous draw Performed By: #### 4 1000, 45603, 66140, 72679, 45400, 75666, 79293 #### [facility] [address] [place] [address], [facility] IMM PLATELET FRAC 1.1 % Normal 0.8-6.3 The [facility] Comment on above: Order Comment: No: D o not add to previous draw Performed By: #### 4 1000, 98728, 19222, 24610, 93221, 13151, 03887 #### [facility] [address] [place] [address], [facility] IMMATURE GRANS 10.5 % High 0.0-1.0 The [facility] Comment on above: Order Comment: No: D o not add to previous draw Performed By: #### 4 1000, 27600, 70905, 16622, 99404, 20117, 05271 #### [facility] [address] [facility] [place] [address], [facility] Lymphocytes (Bld) [#/Vol] 2.4 10*3/uL Normal 1.2-4.0 [facility] Comment on above: Order Comment: No: D o not add to previous draw Performed By: #### 4 1000, 76240, 61710, 10314, 79110, 57930, 88873 #### [facility] [address] [facility] [place] [address], [facility] Lymphocytes/100 WBC (Bld) 21.8 % Normal 20.0-45.0 [facility] Comment on above: Order Comment: No: D o not add to previous draw Performed By: #### 4 1000, 16549, 91775, 19669, 95865, 81583, 05204 #### [facility] 3000 [facility] [place] [address], [facility] MCH (RBC) [Entitic mass] 26.6 pg Low 27.0-33.0 [facility] Comment on above: Order Comment: No: D o not add to previous draw Performed By: #### 4 1000, 86583, 23053, 68149, 65892, 44784, 21466 #### [facility] [address] [place] [address], [facility] MCHC (RBC) [Mass/Vol] 30.4 g/dL Low 32.0-35.0 [facility] Comment on above: Order Comment: No: D o not add to previous draw Performed By: #### 4 1000, 67580, 01699, 82818, 67268, 53872, 71344 #### [facility] [address] [place] [id number], [facility] MCV (RBC) [Entitic vol] 87.4 fL Normal 82.0-98.0 [facility] Comment on above: Order Comment: No: D o not add to previous draw Performed By: #### 4 1000, 96309, 42143, 86067, 46277, 09758, 42315 #### [facility] [address] [place] [address], [facility] Monocytes (Bld) [#/Vol] 0.6 10*3/uL Normal 0.1-1.0 [facility] Comment on above: Order Comment: No: D o not add to previous draw Performed By: #### 4 1000, 18215, 08689, 04905, 47273, 55848, 38875 #### [facility] [address] [place] [address], [facility] MONOS 5.4 % Normal 5.0-12.0 [facility] Comment on above: Order Comment: No: D o not add to previous draw Performed By: #### 4 1000, 97894, 26596, 57661, 93498, 73275, 10896 #### [facility] [address] [place] [id number], [facility] Neutrophils/100 WBC (Bld) 54.7 % Normal 40.0-72.0 [facility] Comment on above: Order Comment: No: D o not add to previous draw Performed By: #### 4 1000, 74995, 32383, 50410, 73648, 26891, 30409 #### [facility] [address] [place] [address], [facility] Nucleated RBC/100 WBC (Bld) [Ratio] 0 % Normal 0-0 [facility] Comment on above: Order Comment: No: D o not add to previous draw Performed By: #### 4 1000, 40737, 78243, 92088, 99344, 85866, 31320 #### [facility] [address] [place] [address], [facility] PLAT CNT 964 10*3/uL High 150-400 [facility] Comment on above: Order Comment: No: D o not add to previous draw Result Comment: RESU LTS CHECKED Performed By: #### 4 1000, 71671, 55370, 83880, 90214, 93056, 28170 #### [facility] [address] [place] [address], [facility] RBC (Bld) [#/Vol] 3.65 10*6/uL Low 3.80-5.00 The [facility] Comment on above: Order Comment: No: D o not add to previous draw Performed By: #### 4 1000, 24807, 31495, 47214, 14900, 76238, 31884 #### [facility] [address] [facility] [place] [address], [facility] WBC (Bld) [#/Vol] 10.93 10*3/uL High 4.00-10.60 [facility] Comment on above: Order Comment: No: D o not add to previous draw Performed By: #### 4 1000, 00181, 03749, 13539, 70823, 56155, 92900 #### [facility] 3000 [facility] [place] [address], [facility] HEMOGLOBINon 07-14-2019 Hemoglobin (Bld) [Mass/Vol] 7.0 g/dL Low 12.0-15.0 [facility] Comment on above: Order Comment: No: D o not add to previous draw Performed By: #### 4 1000, 30558, 04436, 38291, 66243, 76558, 40761 #### [facility] [address] [place] [address], [facility] MAGNESIUM BLOODon 07-14-2019 Magnesium [Mass/Vol] 2.0 mg/dL Normal 1.9-2.7 [facility] Comment on above: Order Comment: No: D o not add to previous draw Performed By: #### 4 1000, 13610, 49294, 78737, 36473, 03230, 78555 #### [facility] [address] [place] [address], [facility] RBC'S 1 UNITon 07-14-2019 CROSSMATCH INTERP 1 COMP Normal [facility] Comment on above: Order Comment: No: D o not add to previous draw Performed By: #### 4 1000, 06109, 37638, 29799, 74382, 80256, 76191 #### [facility] [address] [place] [address], [facility] PRODUCT CODE 1 E0336 Normal The [facility] Comment on above: Order Comment: No: D o not add to previous draw Performed By: #### 4 1000, 01919, 30528, 48470, 83221, 79836, 91057 #### [facility] [address] [place] [address], [facility] PRODUCT STATUS 1 PT Normal The [facility] Comment on above: Order Comment: No: D o not add to previous draw Result Comment: Resu lt changed by IF on 07/14/2019 03:35. The previous value was XM. Result changed by IF on 07/15/2019 00:30. The previous value was IS. Performed By: #### 4 1000, 03299, 29329, 55792, 84164, 56570, 95678 #### [facility] [address] [place] [address], [facility] UNIT ABO 1 O Normal [facility] Comment on above: Order Comment: No: D o not add to previous draw Performed By: #### 4 1000, 94444, 14043, 18013, 65690, 33803, 02202 #### [facility] [address] [place] [address], [facility] UNIT ID 1 [id number] Normal The [facility] Comment on above: Order Comment: No: D o not add to previous draw Performed By: #### 4 1000, 95973, 40247, 86337, 35604, 18639, 71507 #### [facility] [address] [place] [address], [facility] UNIT RH 1 Negative Normal [facility] Comment on above: Order Comment: No: D o not add to previous draw Performed By: #### 4 1000, 31423, 67742, 42014, 01653, 82314, 38586 #### [facility] [address] [place] [address], [facility] SEDIMENTATION RATEon 07-14-2 019 SED RATE 48 mm/hr High 0-20 [facility] Comment on above: Order Comment: No: D o not add to previous draw Performed By: #### 4 1000, 99016, 82963, 39525, 51773, 23231, 54069 #### [facility] [address] [place] [address], [facility] BASIC METABOLIC PANELon 11- 0-2018 Calcium [Mass/Vol] 8.5 mg/dL Low 8.6-10.3 [facility] Comment on above: Order Comment: No: D o not add to previous draw Performed By: #### 4 1000, 16812, 36304, 47801, 62873, 33934, 93387 #### [facility] [address] [place] [id number], [facility] Chloride [Moles/Vol] 101 mmol/L Normal 98-107 [facility] Comment on above: Order Comment: No: D o not add to previous draw Performed By: #### 4 1000, 31286, 81616, 16349, 80380, 33839, 43034 #### [facility] [address] [place] [address], [facility] CO2 [Moles/Vol] 28 mmol/L Normal 21-31 The [facility] Comment on above: Order Comment: No: D o not add to previous draw Performed By: #### 4 1000, 04632, 57598, 57112, 00743, 12382, 48502 #### [facility] [address] [place] [address], [facility] Creatinine [Mass/Vol] 0.54 mg/dL Low 0.60-1.20 [facility] Comment on above: Order Comment: No: D o not add to previous draw Performed By: #### 4 1000, 15499, 04266, 44009, 14307, 28152, 29186 #### [facility] [address] [place] [address], [facility] GFR/1.73 sq M predicted among blacks MDRD (S/P/Bld) [Vol rate/Area] mL/min/{1.73_m2} Normal >60 [facility] Comment on above: Order Comment: No: D o not add to previous draw Result Comment: Calc ulation may not be valid for patients over 70 years Performed By: #### 4 1000, 21565, 34389, 25880, 37538, 32004, 99542 #### [facility] [address] [place] [address], [facility] GFR/1.73 sq M predicted among non-blacks MDRD (S/P/Bld) [Vol rate/Area] mL/min/{1.73_m2} Normal >60 [facility] Comment on above: Order Comment: No: D o not add to previous draw Result Comment: Calc ulation may not be valid for patients over 70 years Performed By: #### 4 1000, 42200, 25320, 74973, 17234, 88812, 72668 #### [facility] [address] [place] [address], [place] Glucose [Mass/Vol] 92 mg/dL Normal 70-100 The [facility] Comment on above: Order Comment: No: D o not add to previous draw Performed By: #### 4 1000, 03556, 71403, 41037, 10405, 79793, 88690 #### [facility] [address] [place] [address], [facility] Potassium [Moles/Vol] 3.6 mmol/L Normal 3.5-5.1 [facility] Comment on above: Order Comment: No: D o not add to previous draw Performed By: #### 4 1000, 06842, 05337, 24238, 58142, 01629, 79358 #### [facility] [facility] [address] [place] [address], [facility] Sodium [Moles/Vol] 134 mmol/L Low 136-145 The [facility] Comment on above: Order Comment: No: D o not add to previous draw Performed By: #### 4 1000, 17516, 25094, 62965, 61644, 60254, 02098 #### [facility] [address] [place] [address], [facility] Urea nitrogen [Mass/Vol] 10 mg/dL Normal 7-25 The [facility] Comment on above: Order Comment: No: D o not add to previous draw Performed By: #### 4 1000, 10288, 08727, 24599, 89525, 51028, 03681 #### [facility] [address] [place] [address], [place] C REACTIVE PROTEINon 11-10-2 019 CRP [Mass/Vol] 59.6 mg/L High 0.0-7.0 The [facility] Comment on above: Order Comment: No: D o not add to previous draw Performed By: #### 4 1000, 62841, 48503, 16022, 50873, 66397, 85290 #### [facility] [address] [place] [address], [place] CBC W/DIFFon 07-13-2019 ABS BASOPHILS 0.0 10*3/uL Normal 0.0-0.2 The [facility] Comment on above: Order Comment: No: D o not add to previous draw Performed By: #### 4 1000, 42575, 23627, 10366, 13449, 49248, 56280 #### [facility] [address] [place] [address], [facility] ABS NEUTROPHILS 9.5 10*3/uL High 1.6-7.6 The [facility] Comment on above: Order Comment: No: D o not add to previous draw Performed By: #### 4 1000, 12164, 47911, 18654, 02786, 33378, 57609 #### [facility] [address] [place] [address], [facility] Basophils/100 WBC (Bld) 0.0 % Normal 0.0-1.0 The [facility] Comment on above: Order Comment: No: D o not add to previous draw Performed By: #### 4 1000, 10931, 52616, 14725, 89991, 32777, 92615 #### [facility] [address] [place] [address], [facility] Eosinophils (Bld) [#/Vol] 0.5 10*3/uL Normal 0.0-0.5 The [facility] Comment on above: Order Comment: No: D o not add to previous draw Performed By: #### 4 1000, 75921, 56382, 80950, 67863, 64664, 35506 #### [facility] [address] [place] [address], [facility] Eosinophils/100 WBC (Bld) 3.6 % Normal 0.0-6.0 The [facility] Comment on above: Order Comment: No: D o not add to previous draw Performed By: #### 4 1000, 22310, 69972, 00873, 55568, 31182, 61123 #### [facility] [address] Erythrocyte distribution width (RBC) [Ratio] 14.6 % Normal 11.5-15.0 [facility] Comment on above: Order Comment: No: D o not add to previous draw Performed By: #### 4 1000, 40534, 93636, 22713, 53204, 82668, 96747 #### [facility] [address] [place] [address], [facility] GIANT PLATELETS Present Normal The [facility] Comment on above: Order Comment: No: D o not add to previous draw Performed By: #### 4 1000, 74074, 50460, 63289, 43399, 00674, 92805 #### [facility] [address] [facility] [place] [address], [facility] Hematocrit (Bld) [Volume fraction] 25.5 % Low 36.0-45.0 The [facility] Comment on above: Order Comment: No: D o not add to previous draw Performed By: #### 4 1000, 66861, 93003, 32379, 15680, 07598, 57839 #### [facility] [address] [place] [address], [facility] Hemoglobin (Bld) [Mass/Vol] 7.7 g/dL Low 12.0-15.0 The [facility] Comment on above: Order Comment: No: D o not add to previous draw Performed By: #### 4 1000, 32927, 27344, 68321, 38185, 85647, 70767 #### [facility] [address] [place] [address], [facility] Lymphocytes (Bld) [#/Vol] 2.1 10*3/uL Normal 1.2-4.0 The [facility] Comment on above: Order Comment: No: D o not add to previous draw Performed By: #### 4 1000, 93714, 60781, 86025, 30139, 84723, 74460 #### [facility] [address] Lymphocytes/100 WBC (Bld) 16.4 % Low 20.0-45.0 The [facility] Comment on above: Order Comment: No: D o not add to previous draw Performed By: #### 4 1000, 57325, 59449, 91434, 60828, 56659, 13616 #### [facility] [address] [facility] [place] [address], [facility] MCH (RBC) [Entitic mass] 26.9 pg Low 27.0-33.0 The [facility] Comment on above: Order Comment: No: D o not add to previous draw Performed By: #### 4 1000, 69903, 68340, 09028, 37464, 27577, 72232 #### [facility] [address] MCHC (RBC) [Mass/Vol] 30.2 g/dL Low 32.0-35.0 The [facility] Comment on above: Order Comment: No: D o not add to previous draw Performed By: #### 4 1000, 65148, 27401, 71632, 28951, 38540, 00185 #### [facility] [address] [place] [address], [facility] MCV (RBC) [Entitic vol] 89.2 fL Normal 82.0-98.0 The [facility] Comment on above: Order Comment: No: D o not add to previous draw Performed By: #### 4 1000, 08168, 59633, 21448, 41483, 27276, 57093 #### [facility] [address] [facility] [place] [address], [facility] METAMYELO 2.7 % High 0.0-0.0 The [facility] Comment on above: Order Comment: No: D o not add to previous draw Performed By: #### 4 1000, 41245, 42937, 88680, 55206, 82898, 72130 #### [facility] [address] [place] [address], [facility] Monocytes (Bld) [#/Vol] 0.5 10*3/uL Normal 0.1-1.0 [facility] Comment on above: Order Comment: No: D o not add to previous draw Performed By: #### 4 1000, 33044, 87070, 59488, 04782, 75510, 96764 #### [facility] [address] MONOS 3.6 % Low 5.0-12.0 The [facility] Comment on above: Order Comment: No: D o not add to previous draw Performed By: #### 4 1000, 69537, 62389, 36611, 98695, 54472, 27324 #### [facility] [address] Neutrophils/100 WBC (Bld) 73.7 % High 40.0-72.0 The [facility] Comment on above: Order Comment: No: D o not add to previous draw Performed By: #### 4 1000, 14778, 89221, 75247, 04298, 03482, 62835 #### [facility] [address] [facility] [address] NRBC SCAN Present Normal The [facility] Comment on above: Order Comment: No: D o not add to previous draw Performed By: #### 4 1000, 49779, 43427, 93237, 77786, 93843, 12928 #### [facility] [address] [place] [address], [facility] Nucleated RBC/100 WBC (Bld) [Ratio] 0 % Normal 0-0 The [facility] Comment on above: Order Comment: No: D o not add to previous draw Performed By: #### 4 1000, 36369, 73786, 41211, 52538, 87130, 75973 #### [facility] [address] [place] [address], [facility] PLAT CNT 852 10*3/uL High 150-400 The [facility] Comment on above: Order Comment: No: D o not add to previous draw Performed By: #### 4 1000, 96983, 05912, 61773, 66997, 23012, 29951 #### [facility] [address] [place] [id number], [facility] RBC (Bld) [#/Vol] 2.86 10*6/uL Low 3.80-5.00 [facility] Comment on above: Order Comment: No: D o not add to previous draw Performed By: #### 4 1000, 74906, 71677, 73096, 97541, 50294, 36479 #### [facility] [address] [place] [address], [facility] WBC (Bld) [#/Vol] 12.94 10*3/uL High 4.00-10.60 The [facility] Comment on above: Order Comment: No: D o not add to previous draw Performed By: #### 4 1000, 16911, 30755, 19340, 43638, 08164, 30497 #### [facility] [address] [place] [address], [facility] ABS BASOPHILS 0.0 10*3/uL Normal 0.0-0.2 The [facility] Comment on above: Order Comment: No: D o not add to previous draw Performed By: #### 4 1000, 11975, 31299, 15754, 72890, 39829, 26779 #### [facility] [address] [place] [address], [place] ABS NEUTROPHILS 9.9 10*3/uL High 1.6-7.6 The [facility] Comment on above: Order Comment: No: D o not add to previous draw Performed By: #### 4 1000, 20287, 72219, 44531, 53073, 48671, 06504 #### [facility] [address] [place] [address], [place] Basophils/100 WBC (Bld) 0.0 % Normal 0.0-1.0 The [facility] Comment on above: Order Comment: No: D o not add to previous draw Performed By: #### 4 1000, 03621, 75145, 79718, 92298, 66743, 61657 #### [facility] [address] [place] [address], [facility] Eosinophils (Bld) [#/Vol] 0.1 10*3/uL Normal 0.0-0.5 The [facility] Comment on above: Order Comment: No: D o not add to previous draw Performed By: #### 4 1000, 10093, 12909, 84616, 21904, 93944, 41694 #### [facility] [address] [place] [address], [facility] Eosinophils/100 WBC (Bld) 0.9 % Normal 0.0-6.0 The [facility] Comment on above: Order Comment: No: D o not add to previous draw Performed By: #### 4 1000, 77427, 27473, 85984, 19373, 00605, 84540 #### [facility] [address] [place] [address], [facility] Erythrocyte distribution width (RBC) [Ratio] 14.2 % Normal 11.5-15.0 The [facility] Comment on above: Order Comment: No: D o not add to previous draw Performed By: #### 4 1000, 87218, 37056, 37451, 13862, 41273, 17871 #### [facility] [address] [place] [place] [address], [facility] GIANT PLATELETS Present Normal The [facility] Comment on above: Order Comment: No: D o not add to previous draw Performed By: #### 4 1000, 77915, 15184, 86276, 78854, 53914, 84462 #### [facility] [address] [place] [address], [place] Hematocrit (Bld) [Volume fraction] 22.4 % Low 36.0-45.0 The [facility] Comment on above: Order Comment: No: D o not add to previous draw Performed By: #### 4 1000, 19441, 81223, 00998, 09161, 65722, 37670 #### [facility] [address] [place] [address], [facility] Hemoglobin (Bld) [Mass/Vol] 7.0 g/dL Low 12.0-15.0 The [facility] Comment on above: Order Comment: No: D o not add to previous draw Performed By: #### 4 1000, 67038, 04141, 20829, 03438, 99932, 91158 #### [facility] [address] [place] [address], [facility] Lymphocytes (Bld) [#/Vol] 1.4 10*3/uL Normal 1.2-4.0 The [facility] Comment on above: Order Comment: No: D o not add to previous draw Performed By: #### 4 1000, 10236, 75930, 58023, 03021, 19666, 68072 #### [facility] [address] [place] [address], [facility] Lymphocytes/100 WBC (Bld) 11.9 % Low 20.0-45.0 The [facility] Comment on above: Order Comment: No: D o not add to previous draw Performed By: #### 4 1000, 98206, 44314, 12549, 13103, 04442, 24956 #### [facility] [address] [place] [address], [facility] MCH (RBC) [Entitic mass] 27.2 pg Normal 27.0-33.0 [facility] Comment on above: Order Comment: No: D o not add to previous draw Performed By: #### 4 1000, 87424, 27562, 45376, 52967, 33088, 63306 #### [facility] [address] [place] [address], [place] MCHC (RBC) [Mass/Vol] 31.3 g/dL Low 32.0-35.0 [facility] Comment on above: Order Comment: No: D o not add to previous draw Performed By: #### 4 1000, 70624, 92370, 24062, 01172, 86328, 56095 #### [facility] [address] [place] [address], [facility] MCV (RBC) [Entitic vol] 87.2 fL Normal 82.0-98.0 [facility] Comment on above: Order Comment: No: D o not add to previous draw Performed By: #### 4 1000, 59225, 77418, 09462, 76509, 22491, 68980 #### [facility] [address] [place] [address], [facility] Monocytes (Bld) [#/Vol] 0.6 10*3/uL Normal 0.1-1.0 The [facility] Comment on above: Order Comment: No: D o not add to previous draw Performed By: #### 4 1000, 24720, 04668, 02213, 49130, 13463, 45807 #### [facility] [address] [place] [address], [facility] MONOS 4.6 % Low 5.0-12.0 The [facility] Comment on above: Order Comment: No: D o not add to previous draw Performed By: #### 4 1000, 39521, 48023, 24086, 16133, 18540, 41752 #### [facility] [address] [place] [address], [facility] Neutrophils/100 WBC (Bld) 82.6 % High 40.0-72.0 The [facility] Comment on above: Order Comment: No: D o not add to previous draw Performed By: #### 4 1000, 80085, 80416, 35961, 28382, 16611, 64158 #### [facility] [address] [place] [id number], [facility] Nucleated RBC/100 WBC (Bld) [Ratio] 0 % Normal 0-0 The [facility] Comment on above: Order Comment: No: D o not add to previous draw Performed By: #### 4 1000, 14497, 91513, 48353, 97899, 58124, 18953 #### [facility] [address] [place] [address], [facility] PLAT CNT 887 10*3/uL High 150-400 The [facility] Comment on above: Order Comment: No: D o not add to previous draw Performed By: #### 4 1000, 42102, 68225, 81532, 16278, 91697, 87554 #### [facility] [address] [place] [address], [facility] RBC (Bld) [#/Vol] 2.57 10*6/uL Low 3.80-5.00 [facility] Comment on above: Order Comment: No: D o not add to previous draw Performed By: #### 4 1000, 57136, 47115, 88624, 26250, 23713, 27293 #### [facility] [address] [place] [address], [facility] WBC (Bld) [#/Vol] 11.99 10*3/uL High 4.00-10.60 [facility] Comment on above: Order Comment: No: D o not add to previous draw Performed By: #### 4 1000, 38254, 15088, 51250, 07152, 68729, 55201 #### [facility] [address] [place] [address], [facility] MAGNESIUM BLOODon 07-13-2019 Magnesium [Mass/Vol] 1.7 mg/dL Low 1.9-2.7 The [facility] Comment on above: Order Comment: No: D o not add to previous draw Performed By: #### 4 1000, 18529, 14482, 01921, 33954, 56964, 28025 #### [facility] [address] [place] [address], [facility] SEDIMENTATION RATEon 11-10-2 019 SED RATE 65 mm/hr High 0-20 The [facility] Comment on above: Order Comment: No: D o not add to previous draw Performed By: #### 4 1000, 53265, 83916, 77190, 77624, 88650, 43440 #### [facility] [address] [place], [place] [address] [place] [address] *ANAEROBIC CULTUREon 019 *ANAEROBIC CULTURE Clinical Report: (D) Specimen/Source: BONE/INTRAOP SPEC Collected: 07/12/2019 14:33 Status: Final Last Updated: 07/17/2019 08:02 (1) 3. RIGHT HIP BONE CULT RES (Final) No Anaerobes Isolated 5 Days Normal The [facility] Comment on above: Order Comment: No: D o not add to previous draw Performed By: #### 4 1000, 94655, 50544, 50008, 53608, 80758, 11282 #### [facility] [address] *ANAEROBIC CULTURE Clinical Report: (D) Specimen/Source: TISSUE/INTRAOP SPEC Collected: 07/12/2019 14:06 Status: Final Last Updated: 07/18/2019 15:11 (1) 2. RIGHT HIP ISO (Final) No Anaerobes Isolated 5 Days Normal The [facility] Comment on above: Order Comment: No: D o not add to previous draw Performed By: #### 4 1000, 81300, 15819, 31958, 69953, 89457, 48442 #### [facility] [address] *ANAEROBIC CULTURE Clinical Report: (D) Specimen/Source: SWAB/INTRAOP SPEC Collected: 07/12/2019 14:03 Status: Final Last Updated: 07/17/2019 08:00 (1) 1. RIGHT HIP SWAB ISO (Final) No Anaerobes Isolated 5 Days Normal [facility] Comment on above: Order Comment: No: D o not add to previous draw Performed By: #### 4 1000, 89840, 18855, 52393, 19917, 87813, 17819 #### [facility] [address] [facility] [place], [place] [address] [place] [address] *MRSA/MSSA DNA NASALon 07-12 *MRSA/MSSA DNA NASAL Clinical Report: (D ) Specimen: NASAL SWAB Collected: 07/12/2019 11:45 Status: Final Last Updated: 07/14/2019 10:45 MSSA DNA (Final) Negative MRSA DNA (Final) Negative Normal [facility] Comment on above: Performed By: #### 4 1000, 26490, 13435, 05184, 98005, 73902, 91312 #### [facility] [address] [facility] [place], [place] [id number] [place] [address] *TISSUE CULTUREon 07-12-2019 *TISSUE CULTURE Clinical Report: [...] RN (4CD) 10:58 a.m. 07/13/19 Normal [facility] Comment on above: Order Comment: No: D o not add to previous draw Performed By: #### 4 1000, 08258, 35942, 71636, 26320, 80152, 25316 #### [facility] [address] [facility] [place], [place] [address] [place] [address] *TISSUE CULTURE Clinical Report: (D) Specimen/Source: TISSUE/INTRAOP [...] Oneil RN (4CD) 10:58 a.m. 07/13/19 Normal [facility] Comment on above: Order Comment: No: D o not add to previous draw Performed By: #### 4 1000, 96269, 11495, 93666, 34244, 44223, 80924 #### [facility] [address] *WOUND CULTUREon 07-12-2019 *WOUND CULTURE Clinical [...] <=1 Susceptible CEFAZOLIN (CZ) <=1 Susceptible CEFTRIAXONE (BIOMEDICAL ENGINEERING PROFESSOR) <=0.5 Susceptible CIPROFLOXACIN (CIP) <=0.5 Susceptible ESBL (-/+) (ESBL) Negative GENTAMICIN (GM) <=1 Susceptible PIP/TAZO (TZP) <=2/4 Susceptible TOBRAMYCIN (TOB) 1 Susceptible TRIMETH/SULFA (SXT) <=0.5/9.5 Susceptible Normal [facility] Comment on above: Order Comment: No: D o not add to previous draw Performed By: #### 4 1000, 78887, 97540, 93432, 11788, 69237, 74143 #### [facility] [address] [facility] [place] [address], [facility] APTTon 11-09-2019 aPTT Coag (Bld) [Time] 45.0 s High 25.0-35.0 [facility] Comment on above: Order Comment: No: [...] THIS PURPOSE. Performed By: #### 4 1000, 15104, 30563, 35838, 07962, 49924, 23037 #### [facility] [address] [place] [address], [facility] BASIC METABOLIC PANELon 11-0 Calcium [Mass/Vol] 8.7 mg/dL Normal 8.6-10.3 [facility] Comment on above: Order Comment: No: D o not add to previous draw Performed By: #### 5 0103, 56897 #### [facility] [address] [place] [address], [facility] Chloride [Moles/Vol] 101 mmol/L Normal 98-107 [facility] Comment on above: Order Comment: No: D o not add to previous draw Performed By: #### 5 102, 29487 #### [facility] [address] [place] [address], [place] CO2 [Moles/Vol] 30 mmol/L Normal 21-31 [facility] Comment on above: Order Comment: No: D o not add to previous draw Performed By: #### 5 010, 60708 #### [facility] [address] [place] [address], [place] Creatinine [Mass/Vol] 0.60 mg/dL Normal 0.60-1.20 [facility] Comment on above: Order Comment: No: D o not add to previous draw Performed By: #### 5 010, 35992 #### [facility] [address] [place] [address], [place] GFR/1.73 sq M predicted among blacks MDRD (S/P/Bld) [Vol rate/Area] mL/min/{1.73_m2} Normal >60 [facility] Comment on above: Order Comment: No: D o not add to previous draw Result Comment: Calc ulation may not be valid for patients over 70 years Performed By: #### 5 0103, 35593 #### [facility] [address] [place] [address], [place] GFR/1.73 sq M predicted among non-blacks MDRD (S/P/Bld) [Vol rate/Area] mL/min/{1.73_m2} Normal >60 [facility] Comment on above: Order Comment: No: D o not add to previous draw Result Comment: Calc ulation may not be valid for patients over 70 years Performed By: #### 5 010, 50488 #### [facility] [address] [place] [address], [place] Glucose [Mass/Vol] 81 mg/dL Normal 70-100 [facility]: Order Comment: No: D o not add to previous draw Performed By: #### 5 010, 62565 #### [facility] [address] [place] [address], [place] Potassium [Moles/Vol] 3.5 mmol/L Normal 3.5-5.1 [facility] Comment on above: Order Comment: No: D o not add to previous draw Performed By: #### 5 0103, 38416 #### [facility] [address] [place] [address], [place] Sodium [Moles/Vol] 136 mmol/L Normal 136-145 [facility] Comment on above: Order Comment: No: D o not add to previous draw Performed By: #### 5 010, 13282 #### [facility] [address] Urea nitrogen [Mass/Vol] 10 mg/dL Normal 7-25 [facility] Comment on above: Order Comment: No: D o not add to previous draw Performed By: #### 5 010, 66318 #### [facility] [address] [place] [address], [facility] CBC COMPLETE BLOOD COUNTon 09-11-2018 Erythrocyte distribution width (RBC) [Ratio] 14.3 % Normal 11.5-15.0 [facility] Comment on above: Order Comment: No: D o not add to previous draw Performed By: #### 5 102, 73154 #### [facility] [address] [place] [address], [facility] Hematocrit (Bld) [Volume fraction] 28.3 % Low 36.0-45.0 [facility] Comment on above: Order Comment: No: D o not add to previous draw Performed By: #### 5 102, 21172 #### [facility] [address] [place] [address], [facility] Hemoglobin (Bld) [Mass/Vol] 8.7 g/dL Low 12.0-15.0 [facility] Comment on above: Order Comment: No: D o not add to previous draw Performed By: #### 5 102, 03669 #### [facility] [address] [place] [address], [facility] MCH (RBC) [Entitic mass] 26.9 pg Low 27.0-33.0 [facility] Comment on above: Order Comment: No: D o not add to previous draw Performed By: #### 5 102, 97686 #### [facility] [address] [place] [address], [facility] MCHC (RBC) [Mass/Vol] 30.7 g/dL Low 32.0-35.0 [facility] Comment on above: Order Comment: No: D o not add to previous draw Performed By: #### 5 102, 40661 #### [facility] [address] [place] [address], [facility] MCV (RBC) [Entitic vol] 87.3 fL Normal 82.0-98.0 [facility] Comment on above: Order Comment: No: D o not add to previous draw Performed By: #### 5 102, 81165 #### [facility] [address] [place] [id number], [facility] Nucleated RBC/100 WBC (Bld) [Ratio] 0 % Normal 0-0 [facility] Comment on above: Order Comment: No: D o not add to previous draw Performed By: #### 5 102, 24891 #### [facility] [address] [place] [address], [facility] PLAT CNT 959 10*3/uL High 150-400 [facility] Comment on above: Order Comment: No: D o not add to previous draw Performed By: #### 5 102, 33105 #### [facility] [address] [place] [address], [facility] RBC (Bld) [#/Vol] 3.24 10*6/uL Low 3.80-5.00 [facility] Comment on above: Order Comment: No: D o not add to previous draw Performed By: #### 5 102, 08121 #### [facility] [address] [place] [id number], [facility] WBC (Bld) [#/Vol] 7.35 10*3/uL Normal 4.00-10.60 [facility] Comment on above: Order Comment: No: D o not add to previous draw Performed By: #### 5 102, 24680 #### [facility] [address] [place] [id number], [facility] Erythrocyte distribution width (RBC) [Ratio] 14.1 % Normal 11.5-15.0 [facility] Comment on above: Order Comment: No: D o not add to previous draw Performed By: #### 5 102, 16524 #### [facility] [address] [place] [address], [facility] Hematocrit (Bld) [Volume fraction] 26.7 % Low 36.0-45.0 [facility] Comment on above: Order Comment: No: D o not add to previous draw Performed By: #### 5 102, 82884 #### [facility] [address] [place] [address], [facility] Hemoglobin (Bld) [Mass/Vol] 8.3 g/dL Low 12.0-15.0 [facility] Comment on above: Order Comment: No: D o not add to previous draw Performed By: #### 5 102, 88497 #### [facility] [address] [place] [id number], [facility] MCH (RBC) [Entitic mass] 26.8 pg Low 27.0-33.0 [facility] Comment on above: Order Comment: No: D o not add to previous draw Performed By: #### 5 102, 98837 #### [facility] [address] [place] [address], [facility] MCHC (RBC) [Mass/Vol] 31.1 g/dL Low 32.0-35.0 [facility] Comment on above: Order Comment: No: D o not add to previous draw Performed By: #### 5 102, 29744 #### [facility] [address] [place] [address], [facility] MCV (RBC) [Entitic vol] 86.1 fL Normal 82.0-98.0 [facility] Comment on above: Order Comment: No: D o not add to previous draw Performed By: #### 5 102, 14084 #### [facility] [address] [place] [id number], [facility] Nucleated RBC/100 WBC (Bld) [Ratio] 0 % Normal 0-0 [facility] Comment on above: Order Comment: No: D o not add to previous draw Performed By: #### 5 010, 15342 #### [facility] [address] [place] [address], [facility] PLAT CNT 887 10*3/uL High 150-400 [facility] Comment on above: Order Comment: No: D o not add to previous draw Performed By: #### 5 010, 16796 #### [facility] [address] [place] [address], [facility] RBC (Bld) [#/Vol] 3.10 10*6/uL Low 3.80-5.00 [facility] Comment on above: Order Comment: No: D o not add to previous draw Performed By: #### 5 102, 73982 #### [facility] [address] [place] [address], [facility] WBC (Bld) [#/Vol] 8.29 10*3/uL Normal 4.00-10.60 [facility] Comment on above: Order Comment: No: D o not add to previous draw Performed By: #### 5 3, 87386 #### [facility] [address] [place] [address], [facility] CPKon 07-12-2019 CK [Catalytic activity/Vol] 14 U/L Low 30-223 [facility] Comment on above: Performed By: #### 4 1000, 19862, 02893, 25352, 02220, 72896, 19379 #### [facility] [address] [place] [address], [facility] MAGNESIUM BLOODon 07-12-2019 Magnesium [Mass/Vol] 2.1 mg/dL Normal 1.9-2.7 [facility] Comment on above: Order Comment: No: D o not add to previous draw Performed By: #### 4 1000, 45071, 14802, 22754, 98385, 07454, 63273 #### [facility] [address] [place] [address], [facility] PROTHROMBIN TIMEon 9 INR Coag (PPP) [Relative time] 1.02 {INR} Normal 0.91-1.16 [facility] Comment on above: Order Comment: No: [...] CHEST 1995;108:231S-246S. Performed By: #### 4 999, 54197, 01516, 98776, 18286, 84777, 24374 #### [facility] [address] [facility] [place] [address], [facility] PT Coag (PPP) [Time] 13.4 s Normal 12.3-14.8 [facility] Comment on above: Order Comment: No: D o not add to previous draw Result Comment: ALL RESULTS MUST BE INTERPRETED WITH RESPECT TO BLOOD DRAWING ARTIFACT OR DILUTION ERROR OF ANTICOAGULANT AT THE TIME OF SAMPLING. Performed By: #### 4 1000, 66425, 02676, 23071, 27695, 03615, 52953 #### [facility] [address] [place] [address], [facility] INR Coag (PPP) [Relative time] 1.03 {INR} Normal 0.91-1.16 [facility] Comment on above: Order Comment: No: [...] CHEST 1995;108:231S-246S. Performed By: #### 5 0103, 52394 #### [facility] [address] [place] [address], [facility] PT Coag (PPP) [Time] 13.5 s Normal 12.3-14.8 [facility] Comment on above: Order Comment: No: D o not add to previous draw Result Comment: ALL RESULTS MUST BE INTERPRETED WITH RESPECT TO BLOOD DRAWING ARTIFACT OR DILUTION ERROR OF ANTICOAGULANT AT THE TIME OF SAMPLING. Performed By: #### 5 0103, 83926 #### [facility] [address] [place] [address], [place] TYPE AND SCREENon 07-12-2019 ABO INTERPRETATION O Normal [facility] Comment on above: Performed By: #### 5 0103, 82207 #### [facility] [address] [place] [address], [place] RH INTERPRETATION Negative Normal [facility] Comment on above: Performed By: #### 5 0103, 80488 #### [facility] [address] [place] [address], [facility] *BLOOD CULTUREon 07-11-2019 Bacteria identified Cx Nom (Bld) Clinical Report: (D) Specimen: BLOOD CULTURE Collected: 07/11/2019 03:05 Status: Final Last Updated: 07/16/2019 07:54 (1) Right ac CULT RES (Final) No Growth Day 5 Normal [facility] Comment on above: Order Comment: Right ac Performed By: #### 3 0313 #### [facility] [address] [place] [address], [facility] Bacteria identified Cx Nom (Bld) Clinical Report: (D) Specimen: BLOOD CULTURE Collected: 07/11/2019 03:04 Status: Final Last Updated: 07/16/2019 07:54 (1) Left wrist CULT RES (Final) No Growth Day 5 Normal [facility] Comment on above: Order Comment: Left wrist Performed By: #### 5 0103, 65280 #### [facility] [address] [place] [address], [facility] BASIC METABOLIC PANELon 110 Calcium [Mass/Vol] 8.6 mg/dL Normal 8.6-10.3 [facility] Comment on above: Order Comment: No: D o not add to previous draw Performed By: #### 4 1000, 34367, 77374, 23971, 79597, 70996, 85837 #### [facility] [address] [place] [address], [place] Chloride [Moles/Vol] 98 mmol/L Normal 98-107 [facility] Comment on above: Order Comment: No: D o not add to previous draw Performed By: #### 4 1000, 74493, 69587, 65470, 70622, 13671, 21947 #### [facility] [address] [place] [address], [place] CO2 [Moles/Vol] 27 mmol/L Normal 21-31 [facility] Comment on above: Order Comment: No: D o not add to previous draw Performed By: #### 4 1000, 65912, 64942, 70290, 09850, 33109, 00624 #### [facility] [address] [place] [address], [place] Creatinine [Mass/Vol] 0.61 mg/dL Normal 0.60-1.20 [facility] Comment on above: Order Comment: No: D o not add to previous draw Performed By: #### 4 1000, 14617, 12464, 38306, 60941, 79154, 23075 #### [facility] [address] [place] [address], [place] GFR/1.73 sq M predicted among blacks MDRD (S/P/Bld) [Vol rate/Area] mL/min/{1.73_m2} Normal >60 [facility] Comment on above: Order Comment: No: D o not add to previous draw Result Comment: Calc ulation may not be valid for patients over 70 years Performed By: #### 4 1000, 32586, 12331, 41915, 62575, 69779, 12323 #### [facility] [address] [place] [address], [facility] GFR/1.73 sq M predicted among non-blacks MDRD (S/P/Bld) [Vol rate/Area] mL/min/{1.73_m2} Normal >60 [facility] Comment on above: Order Comment: No: D o not add to previous draw Result Comment: Calc ulation may not be valid for patients over 70 years Performed By: #### 4 1000, 61818, 93048, 69004, 33313, 03832, 40989 #### [facility] [address] [place] [address], [place] Glucose [Mass/Vol] 91 mg/dL Normal 70-100 [facility] Comment on above: Order Comment: No: D o not add to previous draw Performed By: #### 4 1000, 62879, 61635, 79183, 17168, 01835, 62663 #### [facility] [address] [place] [address], [facility] Potassium [Moles/Vol] 3.5 mmol/L Normal 3.5-5.1 [facility] Comment on above: Order Comment: No: D o not add to previous draw Performed By: #### 4 1000, 83555, 85722, 26887, 09246, 28525, 19144 #### [facility] [address] [place] [address], [facility] Sodium [Moles/Vol] 133 mmol/L Low 136-145 [facility] Comment on above: Order Comment: No: D o not add to previous draw Performed By: #### 4 1000, 54058, 86637, 04429, 14179, 98214, 42864 #### [facility] [address] [place] [address], [facility] Urea nitrogen [Mass/Vol] 11 mg/dL Normal 7-25 [facility] Comment on above: Order Comment: No: D o not add to previous draw Performed By: #### 4 1000, 22120, 09568, 54520, 56470, 02794, 66249 #### [facility] [address] BNP (B-TYPE NATRIURETIC PEPT MIKE)on 07-11-2019 Natriuretic peptide B (Bld) [Mass/Vol] 107 pg/mL High 0-100 [facility] Comment on above: Order Comment: This order is a replacement of the rejected order with accession [id number]. Result Comment: Give n the appropriate clinical setting a BNP result of >100 pg/mL indicates congestive heart failure. Performed By: #### 5 0103, 55899 #### [facility] [address] [place] [address], [facility] C REACTIVE PROTEINon 019 CRP [Mass/Vol] 355.0 mg/L High 0.0-7.0 [facility] Comment on above: Order Comment: Yes: Add to Previous draw if able Performed By: #### 5 010, 72749 #### [facility] [address] [facility] [place] [address], [facility] CBC W/DIFFon 07-11-2019 ABS BASOPHILS 0.1 10*3/uL Normal 0.0-0.2 The [facility] Comment on above: Performed By: #### 5 010, 75339 #### [facility] [address] [facility] [address] ABS IMM GRANS 0.2 10*3/uL Normal 0.0-0.2 [facility] Comment on above: Performed By: #### 5 102, 40802 #### [facility] [address] ABS NEUTROPHILS 4.9 10*3/uL Normal 1.6-7.6 The [facility] Comment on above: Performed By: #### 5 102, 07430 #### [facility] [address] [facility]. [address] Basophils/100 WBC (Bld) 0.8 % Normal 0.0-1.0 [facility] Comment on above: Performed By: #### 5 102, 97556 #### [facility] [address] [facility] [place] [address], [facility] Eosinophils (Bld) [#/Vol] 0.4 10*3/uL Normal 0.0-0.5 [facility] Comment on above: Performed By: #### 5 102, 04998 #### [facility] [address] [facility] [place] [address], [facility] Eosinophils/100 WBC (Bld) 5.2 % Normal 0.0-6.0 [facility] Comment on above: Performed By: #### 5 102, 51757 #### [facility] [address] Erythrocyte distribution width (RBC) [Ratio] 14.3 % Normal 11.5-15.0 [facility] Comment on above: Performed By: #### 5 102, 36099 #### [facility] [address] Hematocrit (Bld) [Volume fraction] 29.1 % Low 36.0-45.0 [facility] Comment on above: Performed By: #### 5 102, 67930 #### [facility] [address] Hemoglobin (Bld) [Mass/Vol] 9.0 g/dL Low 12.0-15.0 [facility] Comment on above: Performed By: #### 5 102, 96197 #### [facility] [address] IMMATURE GRANS 2.2 % High 0.0-1.0 The [facility] Comment on above: Performed By: #### 102, 32442 #### [facility] [address] Lymphocytes (Bld) [#/Vol] 1.4 10*3/uL Normal 1.2-4.0 [facility] Comment on above: Performed By: #### 5 102, 82140 #### [facility] [address] Lymphocytes/100 WBC (Bld) 18.2 % Low 20.0-45.0 [facility] Comment on above: Performed By: #### 5 102, 54677 #### [facility] [address] MCH (RBC) [Entitic mass] 26.9 pg Low 27.0-33.0 [facility] Comment on above: Performed By: #### 102, 10645 #### [facility] [address] [place] [address], [facility] MCHC (RBC) [Mass/Vol] 30.9 g/dL Low 32.0-35.0 [facility] Comment on above: Performed By: #### 5 102, 79486 #### [facility] [address] [place] [address], [facility] MCV (RBC) [Entitic vol] 86.9 fL Normal 82.0-98.0 [facility] Comment on above: Performed By: #### 102, 02175 #### [facility] [address] [place] [address], [facility] Monocytes (Bld) [#/Vol] 0.9 10*3/uL Normal 0.1-1.0 [facility] Comment on above: Performed By: #### 102, 12232 #### [facility] [address] [facility] [place] [address], [facility] MONOS 11.3 % Normal 5.0-12.0 [facility] Comment on above: Performed By: #### 5 102, 02817 #### [facility] [address] [facility] [place] [address], [facility] Neutrophils/100 WBC (Bld) 62.3 % Normal 40.0-72.0 [facility] Comment on above: Performed By: #### 5 102, 12792 #### [facility] [address] [facility] [place] [address], [facility] Nucleated RBC/100 WBC (Bld) [Ratio] 0 % Normal 0-0 [facility] Comment on above: Performed By: #### 5 102, 83286 #### [facility] [address] [place] [address], [facility] PLAT CNT 873 10*3/uL High 150-400 [facility] Comment on above: Performed By: #### 5 0103, 96297 #### [facility] [address] [place] [address], [facility] RBC (Bld) [#/Vol] 3.35 10*6/uL Low 3.80-5.00 [facility] Comment on above: Performed By: #### 5 0103, 45230 #### [facility] [address] [facility] [place] [address], [facility] WBC (Bld) [#/Vol] 7.85 10*3/uL Normal 4.00-10.60 [facility] Comment on above: Performed By: #### 5 0103, 68350 #### [facility] [address] [facility] [address] CPKon 07-11-2019 CK [Catalytic activity/Vol] 23 U/L Low 30-223 [facility] Comment on above: Performed By: #### 4 1000, 44575, 14584, 09168, 70611, 67400, 78994 #### [facility] [address] [facility]. [address] FERRITINon 07-11-2019 Ferritin [Mass/Vol] 110 ng/mL Normal 11-307 [facility] Comment on above: Performed By: #### 4 1000, 25452, 70526, 31150, 43663, 92616, 99414 #### [facility] [address] [facility]. [address] HIP RIGHT 1 OR 2 VWS WITH PE LVISon 07-11-2019 HIP RIGHT 1 OR 2 VWS WITH PELVIS [facility] Department of Radiology [address] [place] [address] ======== Patient Name: EMY CHEATHAM : 1945 Sex: F Age: Race: White Pt. Location: [id number] Patient Status: I Ordered Date: 07/11/2019 10:50:00 [...] wires Electronically signed by:Amandeep Mccormack. Transcribed by: [email or web address], User Resident: Electronically Signed by: AMANDEEP MCCORMACK @ 07/11/2019 12:33 PM Normal [facility] Comment on above: Order Comment: Hardw are Evaluation MAGNESIUM BLOODon 07-11-2019 Magnesium [Mass/Vol] 1.7 mg/dL Low 1.9-2.7 [facility] Comment on above: Order Comment: No: D o not add to previous draw Performed By: #### 4 1000, 63998, 02354, 14041, 25972, 86229, 41315 #### [facility] [address] MYOGLOBINon 07-11-2019 Myoglobin [Mass/Vol] 21 ng/mL Normal 0-90 [facility] Comment on above: Result Comment: A DO UBLING OF VALUES FROM SERIAL BLOOD COLLECTIONS (1 - 2 HOURS APART) IS MORE INDICATIVE OF A M.I. THAN THE ABSOLUTE VALUE. Performed By: #### 4 1000, 33633, 48089, 28790, 83835, 04706, 95549 #### [facility] [address] PHOSPHORUS BLOODon 9 Phosphate [Mass/Vol] 3.3 mg/dL Normal 2.5-5.0 [facility] Comment on above: Order Comment: No: D o not add to previous draw Performed By: #### 4 1000, 89881, 78589, 27271, 95191, 01001, 56852 #### [facility] [address] [place] [address], [facility] RBC'S 2 UNITSon 07-11-2019 CROSSMATCH INTERP 1 COMP Normal [facility] Comment on above: Performed By: #### 5 0103, 94103 #### [facility] [address] [facility] [place] [address], [facility] CROSSMATCH INTERP 2 COMP Normal [facility] Comment on above: Performed By: #### 5 0103, 73575 #### [facility] [address] [place] [address], [facility] PRODUCT CODE 1 E0336 Normal The [facility] Comment on above: Performed By: #### 5 0103, 51345 #### [facility] [address] [facility] [place] [address], [facility] PRODUCT CODE 2 E0336 Normal The [facility] Comment on above: Performed By: #### 5 0103, 27383 #### [facility] [address] [facility] [place] [place] [address], [facility] PRODUCT STATUS 1 RE Normal The [facility] Comment on above: Result Comment: Resu lt changed by IF on 07/12/2019 12:53. The previous value was XM. Result changed by IF on 07/12/2019 16:13. The previous value was IS. Result changed by IF on 07/13/2019 11:24. The previous value was XM. Result changed by IF on 07/13/2019 11:31. The previous value was XX. Performed By: #### 5 0103, 55847 #### [facility] [address] [place] [address], [facility] PRODUCT STATUS 2 PT Normal The [facility] Comment on above: Result Comment: Resu lt changed by IF on 07/12/2019 12:53. The previous value was XM. Result changed by IF on 07/12/2019 16:13. The previous value was IS. Result changed by IF on 07/13/2019 14:26. The previous value was XM. Result changed by IF on 07/14/2019 00:30. The previous value was IS. Performed By: #### 5 0103, 07924 #### [facility] [address] [place] [address], [facility] UNIT ABO 1 O Normal [facility] Comment on above: Performed By: #### 5 0103, 97481 #### [facility] [address] [place] [address], [place] UNIT ABO 2 O Normal [facility] Comment on above: Performed By: #### 5 0103, 22500 #### [facility] [address] [place] [address], [place] UNIT ID 1 [id number] Normal The [facility] Comment on above: Performed By: #### 5 0103, 18125 #### [facility] [address] [place] [address], [place] UNIT ID 2 [id number] Normal [facility] Comment on above: Performed By: #### 5 102, 46005 #### [facility] [address] [place] [address], [facility] UNIT RH 1 Negative Normal [facility] Comment on above: Performed By: #### 5 010, 00686 #### [facility] [address] [place] [address], [facility] UNIT RH 2 Negative Normal [facility] Comment on above: Performed By: #### 5 010, 85425 #### [facility] [address] [place] [address], [facility] SEDIMENTATION RATEon 019 SED RATE 101 mm/hr High 0-20 [facility] Comment on above: Performed By: #### 5 010, 55831 #### [facility] [address] TIBC- INCLUDES IRONon 2018 FE SATURATION 7 % Low 20-50 The [facility] Comment on above: Performed By: #### 4 1000, 02029, 29888, 13091, 70533, 61560, 90426 #### [facility] [address] Iron [Mass/Vol] 13 ug/dL Low 50-212 The [facility] Comment on above: Performed By: #### 4 1000, 92230, 12635, 04341, 74126, [id number], [id number] #### [facility] [address] [place] [address], [facility] TIBC 191 mcg/dL Low 250-450 [facility] Comment on above: Performed By: #### 4 1000, [id number], 66551, 34802, 47746, [id number], [id number] #### [facility] [address] [place] [id number], [facility] UIBC 178 mcg/dL Normal 155-355 [facility] Comment on above: Performed By: #### 4 1000, [id number], 65780, 89910, 57882, 28864, [id number] #### [facility] Blossom CONNOR. [address] Otheron 09-18-2000 CONVERTED ELECTRONIC SIGNATURE MICHAEL HEART M.D., PATHOLOGIST (Electronic signature on file) Final Signed Out: 09/18/2000 15:59 [facility] CONVERTED FINAL DIAGNOSIS TISSUE FROM ABDOMINAL WALL, EXCISION - FIBROADIPOSE TISSUE WITH HEMORRHAGE. ASSOCIATED SUTURE MATERIAL AND SYNTHETIC MESH-LIKE MATERIAL. [facility] CONVERTED ORDERING PROVIDER Ordering Provider: DRE OCONNELL [facility] Otheron 04-18-2000 CONVERTED ELECTRONIC SIGNATURE LUZ MARINA ACEVES M.D., PATHOLOGIST (Electronic signature on file) Final Signed Out: 04/18/2000 12:24 [facility] CONVERTED ORDERING PROVIDER Ordering Provider: DRE OCONNELL [facility] Granulocytes/100 WBC (Bld) A) LYMPH NODE, INDRA [...] [facility] the [facility] FINAL DIAGNOSIS LEFT BREAST, CORE BIOPSY - DENSE FIBROSIS WITH FOCAL MICROCALCIFICATIONS. NEGATIVE FOR MALIGNANCY. COMMENT - Histologic sections demonstrate dense fibrosis and duct ectasia with focal microcalcifications. The specimen may represent portions of an old hyalinized fibroadenoma or merely a dense fibrosis associated with fibrocystic change. There is no evidence of malignancy. [facility] CONVERTED ORDERING PROVIDER Ordering Provider: LUCHO CERVANTES [facility] Thyroidon 06-01-1999 TSH Jeniffer LOGAN M.D., PATHOLOGIST (Electronic signature on file) Final Signed Out: 06/01/1999 13:30 [facility] Encounters Encounter Date Encounter Type Care Provider Facility Start: 12-14-2022 ambulatory Facility:Arvind Nieto Start: 10-04-2022 End: 10-06-[address] NASREEN MARY . Facility: Start: 08-04-2022 End: 08-07-[address] NASREEN MARY . Facility:[facility] Start: 01-21-2022 End: 01-25-[address] NASREEN MARY . Facility: Start: 10-05-2021 End: 10-05-2021 ambulatory Helene Mainarney Other [facility] Other Start: 10-05-2021 Telephone encounter Helene Carlson [facility] Start: 07-11-2019 End: 07-17-2019 Evaluation and management of inpatient ELFEGO MENDEZ Facility:[facility] Start: 09-15-2000 End: 09-15-2000 Patient encounter procedure Dre Oconnell Work Phone: [facility] Start: 09-15-2000 Results Only Dre hines Work Phone: [facility] Start: 04-16-2000 End: 04-16-2000 Patient encounter procedure Dre Oconnell Work Phone: [facility] Start: 04-16-2000 Results Only Dre Ángel hines Work Phone: [facility] Start: 05-31-1999 End: 05-31-1999 Patient encounter procedure Lucho Cervantes Work Phone: [facility] Start: 05-31-1999 Results Only Lucho Stoddard i Work Phone: [facility] Procedures Date Procedure Procedure Detail Performing Clinician [...] on above: Performed By: #### 5 [id number], [id number] #### [address] Start: 09-15-2000 CONVERTED SURGICAL PATHOLOGY Dre Oconnell Work Phone: Start: 04-16-2000 CONVERTED SURGICAL PATHOLOGY Dre Oconnell Work Phone: Start: 05-31-1999 CONVERTED SURGICAL PATHOLOGY Lucho Cervantes Work Phone: Immunizations Immunization Date Immunization Notes Care Provider Hilton mtz 05-22-2018 influenza, high dose seasonal, preservative-free Helene Carlson Other [facility] Other 06-20-2014 pneumococcal polysaccharide vaccine, 23 valent Helene Carlson Other [facility] Other Payers Date Payer Category Payer Medicare [id number] 1961 Medicare [id number] 1945 Unknown [id number] 1945 Unknown [id number] 1945 Unknown [id number] 1945 Unknown [id number] [id number] Private Health Insurance [id number] [id number] Social History Date Type Detail Facility Tobacco smoking status NHIS Unknown if ev er smoked [facility] Sex Assigned At Not on file [facility] Sex Assigned At Sex Assigned At [facility] Other Discharge summary note 10-04-2022 Note Date & Type Note Facility 10-04-2022 Note Discharge Date: 11/2022 HISTORY OF PRESENT ILLNESS: The patient was evaluated at the half-way, found to have bilateral pneumonia with status [...] and she was transferred back to the half-way. She will continue on the oral antibiotics and steroids, and proper use was explained, and I will follow her up at the half-way. DISCHARGE DIAGNOSIS: 1. Bilateral pneumonia. 2. Status [...] 14. Chronic kidney disease stage 3. [facility] Evaluation note Note Date & Type Note Facility Evaluation note No Information [facility] [employer] Other History general Narrative - Reported Note [...] hip replacement 2017 Hospitalization History see above [facility] Other Summary Purpose Family History No Family History Records FoundNo Family History Records FoundNo Family History Records FoundNo Family History Records Found Advance Directives No Advanced Directives Records FoundNo Advanced Directives Records FoundNo Advanced Directives Records FoundNo Advanced Directives Records Found Hospital Course Note MR#: [id number] [facility] Pt. Name: Emy Cheatham Admitted: 07/11/2019 Discharged: [...] Again, the patient was admitted from outside [facility] (more content not included)... Additional Source Comments INFORMATION SOURCE (unrecogn ized section and content) DATE CREATED AUTHOR 08/09/2019 [facility] DATE CREATED AUTHOR AUTHOR'S ORGANIZ ATION 12/25/2021 [facility] DATE CREATED AUTHOR AUTHOR'S ORGANIZ ATION 11/04/2022 [facility] DATE CREATED AUTHOR AUTHOR'S ORGANIZ ATION 12/16/2022 [facility] Source Comments (unrecognize d section and content) In the event this informatio n is protected by the Federal Confidentiality of Alcohol and Drug Abuse Patient Records regulations: The Federal rules restrict any use of the information to criminally investigate or prosecute any alcohol or drug abuse patient.[facility] the event this information is protected by the Federal Confidentiality of Alcohol and Drug Abuse Patient Records regulations: The Federal rules restrict any use of the information to criminally investigate or prosecute any alcohol or drug abuse patient.[facility] the event this information is protected by the Federal Confidentiality of Alcohol and Drug Abuse Patient Records regulations: The Federal rules restrict any use of the information to criminally investigate or prosecute any alcohol or drug abuse patient.[facility] REASON FOR VISIT (unrecogniz ed section and [...] BASED ON THE PRIMARY CLINICAL RECORDS. [employer] [facility]. provides no warranty or guarantee of the accuracy or completeness of information in this document.
[2024-11-20 23:25] LABS: Hematocrit 25.3 % (36.0-48.0); Mean Corpuscular HGB Conc 31.6 g/dL (29.9-35.2); Mean Corpuscular Hemoglobin 36.7 pg (26.7-34.0); Mean Corpuscular Volume 116.1 fL (81.0-99.0); Mean Platelet Volume 11.6 fL (9.5-13.5); Platelet Count 421 10^3/uL (150-450); Red Blood Count 2.18 10^6/uL (4.20-5.40); Red Cell Distribution Width 15.9 % (11.0-15.0); White Blood Count 13.8 10^3/uL (4.0-11.0)
--- NOTE | 2024-11-20 23:31 | ED_ITS ---
HPI HPI - General Adult General Chief complaint: Shortness of Breath/Dyspnea Stated complaint: DIFF BREATHING Time Seen by Provider: 11/20/24 22:51 Source: other Source information: EMS Mode of arrival: ambulance Limitations: altered mental status History of Present Illness HPI narrative: 79-year-old female presents for weakness and shortness of breath. She comes in from [facility] by squad. The staff at the [facility] found her to be less responsive than typical and she seemed to be having trouble breathing. She was noted to have low blood pressure by the paramedics. She is unable to provide any history but has a history of CHF. Some history is obtained from her daughter and the patient has a signed DNR CCA order. The patient's daughter who is also POA requests no intubation. No further history is obtainable. Related Data Home Medications ?Medication ?Instructions ?Recorded ?Confirmed acetaminophen 325 mg tablet (Aphen) 650 mg PO DAILY 06/12/23 05/11/24 aluminum-mag hydroxide-simethicone 5 ml PO Q4H PRN indigestion 06/12/23 05/11/24 200 mg-200 mg-20 mg/5 mL oral susp (Advanced Antacid-Antigas) aspirin 81 mg tablet,delayed 81 mg PO DAILY 06/12/23 05/11/24 release (Adult Low Dose Aspirin) budesonide-formoterol HFA 160 2 inh inhalation BID 06/12/23 05/11/24 mcg-4.5 mcg/actuation aerosol inhaler (Breyna) calcium 600 mg (as 1 tab PO BID 06/12/23 05/11/24 carbonate)-vitamin D3 10 mcg (400 unit) tablet (Calcium 600 + D(3)) ergocalciferol (vitamin D2) 1,250 1,250 mcg PO QWEEK 06/12/23 05/11/24 mcg (50,000 unit) capsule (Drisdol) febuxostat 40 mg tablet 40 mg PO DAILY 06/12/23 05/11/24 folic acid 1 mg tablet 1 mg PO DAILY 06/12/23 05/11/24 furosemide 20 mg tablet 40 mg PO DAILY 06/12/23 05/11/24 gabapentin 300 mg capsule 300 mg PO Q8H 06/12/23 05/11/24 levothyroxine 100 mcg tablet 100 mcg PO DAILY 06/12/23 05/11/24 (Euthyrox) liothyronine 5 mcg tablet 5 mcg PO BID 06/12/23 05/11/24 metolazone 5 mg tablet 5 mg PO DAILY 06/12/23 05/11/24 multivitamin (Daily Multi-Vitamin 1 tab PO DAILY 06/12/23 05/11/24 tablet) pantoprazole 40 mg tablet,delayed 40 mg PO DAILY 06/12/23 05/11/24 release spironolactone 25 mg tablet 25 mg PO DAILY 06/12/23 05/11/24 (Aldactone) tramadol 50 mg tablet 25 mg PO Q6H PRN pain 06/12/23 05/11/24 ammonium lactate 12 % lotion 1 applic topical BID 05/11/24 05/11/24 ketoconazole 2 % topical cream 1 applic topical BID 05/11/24 05/11/24 nystatin 100,000 unit/gram topical 1 applic topical BID PRN skin 05/11/24 05/11/24 powder (Nyamyc) irritation trazodone 100 mg tablet 125 mg PO DAILY 05/11/24 05/11/24 Allergies Allergy/AdvReac Type Severity Reaction Status Date / Time allopurinol Allergy Unknown Unknown Verified 05/13/24 19:35 codeine Allergy Unknown Unknown Verified 05/13/24 19:35 adhesive tape AdvReac Unknown Unknown Verified 05/13/24 19:35 diazepam (From Valium) AdvReac Unknown Unknown Verified 05/13/24 19:35 morphine AdvReac Unknown Unknown Verified 05/13/24 19:35 prochlorperazine (From AdvReac Unknown Unknown Verified 05/13/24 19:35 Compazine) Opioid HPI Opioid Management Most Recent Opioid Data: Last Pain Scale 0 05/12/24 12:22 05/12/24 Last ORT Total Score 0 05/11/24 08:11 05/11/24 Last ORT Risk Category Low Risk 05/11/24 08:11 05/11/24 Review of Systems ROS Narrative Not obtainable, dyspnea [facility] Medical History (Updated 11/21/24 @ 01:54 by Flo Rossi MD) Suspected venous thromboembolism (VTE) ?R09.89 - Other specified symptoms and signs involving the circulatory and respiratory systems (ICD-10) D-dimer, elevated ?R79.89 - Other specified abnormal findings of blood chemistry (ICD-10) Chest pain ?R07.9 - Chest pain, unspecified (ICD-10) Macrocytic anemia ?D53.9 - Nutritional anemia, unspecified (ICD-10) Prolonged immobilization ?Z74.09 - Other reduced mobility (ICD-10) Afib ?I48.91 - Unspecified atrial fibrillation (ICD-10) CKD stage 3a, GFR 45-59 ml/min ?N18.31 - Chronic kidney disease, stage 3a (ICD-10) (HFpEF) heart failure with preserved ejection fraction ?I50.30 - Unspecified diastolic (congestive) heart failure (ICD-10) Major depressive disorder ?F32.9 - Major depressive disorder, single episode, unspecified (ICD-10) 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 - Nontoxic goiter, unspecified (ICD-10) Hypothyroid ?E03.9 - Hypothyroidism, unspecified (ICD-10) Neuromuscular dysfunction of bladder ?N31.9 - Neuromuscular dysfunction of bladder, unspecified (ICD-10) Gout ?M10.9 - Gout, unspecified (ICD-10) Fibromyalgia ?M79.7 - Fibromyalgia (ICD-10) Obesity ?E66.9 - Obesity, unspecified (ICD-10) Disc degeneration, lumbar ?M51.36 - Other intervertebral disc degeneration, lumbar region (ICD-10) Lymphedema ?I89.0 - Lymphedema, not elsewhere classified (ICD-10) Pulmonary edema ?J81.1 - Chronic pulmonary edema (ICD-10) Kidney disease ?N28.9 - Disorder of kidney and ureter, unspecified (ICD-10) 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 Smoking status: Never smoker Non-prescribed substance use: denies use Previous occupational history: retired Known occupational exposures/hazards: No Highest level of school completed/degree received: high school graduate Are you now , , , , never or living with a partner: don't know In a typical week, how many times do you talk on the telephone with family, friends, or neighbors: once per week How often do you get together with friends or relatives: once per week How often do you attend protestant or nondenominational services: 1-3 times per year Do you belong to any clubs or organizations such as protestant groups unions, fraternal or athletic groups, or school groups: no Total score: 0 Score interpretation: A score of less than or equal to 1 indicates the most socially isolated. Little interest or pleasure in doing things: not at all Feeling down, depressed, or hopeless: not at all Feel stressed/tense/nervous/anxious/difficulty sleeping: not at all Due to disability, difficulty making decisions: No Do you think of yourself as: straight/heterosexual Gender Identity: female Exam Narrative Exam Narrative: Nurses note and vital signs reviewed and patient is not hypoxic. General: The patient appears in no apparent respiratory distress. She appears mildly dyspneic. She is on a nonrebreather on arrival. Skin: Warm, dry, no pallor noted. There is no rash noted. Head: Normocephalic, atraumatic Eye: Normal conjunctiva, no drainage Ears, Nose, Mouth, and Throat: oral mucosa is moist. Nares patent. Cardiovascular: Regular Rate and Rhythm, not tach Respiratory: She is somewhat dyspneic and is on nonrebreather. Breath sounds are equal and are clear anteriorly. GI: Soft and nontender, nondistended Musculoskeletal: Significant edema in bilateral lower extremity Neurological: She is able to shake her head yes and no appropriately. She was having short conversations with her daughter. Psychiatric: Unable to be assessed Constitutional Vital Signs, click to edit/add: Last Vital Signs Temp 97.9 F 11/20/24 23:14 Pulse 87 11/20/24 23:50 Resp 22 H 11/20/24 23:50 BP 65/45 L 11/20/24 23:50 Pulse Ox 91 L 11/20/24 23:50 O2 Del Method Nonrebreather 11/20/24 22:51 O2 Flow Rate 15 11/20/24 22:51 FiO2 100 11/20/24 23:15 Course Vital Signs Vital signs: Vital Signs Pulse Rate 100 H 11/20/24 22:51 Respiratory Rate 30 H 11/20/24 22:51 Blood Pressure 70/56 L 11/20/24 22:51 Pulse Oximetry 83 L 11/20/24 22:51 Oxygen Delivery Method Nonrebreather 11/20/24 22:51 Oxygen Delivery Flow Rate 15 11/20/24 22:51 Temperature 97.9 F 11/20/24 23:14 Pulse Rate 87 11/20/24 23:50 Respiratory Rate 22 H 11/20/24 23:50 Blood Pressure 65/45 L 11/20/24 23:50 Pulse Oximetry 91 L 11/20/24 23:50 Oxygen Delivery Method Nonrebreather 11/20/24 22:51 Oxygen Delivery Flow Rate 15 11/20/24 22:51 Fraction of Inspired Oxygen 100 11/20/24 23:15 Medical Decision Making MDM Narrative Medical decision making narrative: The patient presented with hypotension and hypoxemia. She has a signed DNR CCA order and I had a long discussion with the patient's daughter. She is in agreement with the treatment that we have given but requests no intubation. The cause of her hypotension is not clear but blood cultures and urine culture were ordered and she was ordered IV Zosyn and vancomycin. There is no evidence of pneumonia and her COVID and influenza test are negative. BNP is elevated but her chest x-ray does not show any heart failure or pneumonia. She was placed on BiPAP because of hypoxemia and she has been maintaining O2 sats in the 90% range on the BiPAP. She has a history of significant heart failure and she was ordered 2 L of IV fluids. I do not feel that 30 mL/kg would be appropriate for this patient and she was placed on Levophed. Her blood pressure has come up modestly with the Levophed. She is going to be admitted to the intensive care unit and this was discussed with her daughter as well. Wood catheter has been inserted but no urine was obtained. The Wood catheter was irrigated and it was not blocked and bladder scan showed scant urine. The seriousness of this matter was discussed thoroughly with the patient's daughter and she understands the significance of her presenting symptoms and the low blood pressure and low oxygen. We revisited her CODE STATUS and the patient's daughter continues to wish her mother to have DNR CCA status but no intubation. This was communicated with the nursing staff and the respiratory therapist. Differential Diagnosis Differential Diagnosis: Heart failure, pneumonia, COVID, influenza, renal failure, UTI, sepsis Medical Records Medical records reviewed: Yes I reviewed the patient's medical records Lab Data Lab results reviewed: Yes I reviewed the patient's lab results Labs: Lab Results 11/20/24 11/20/24 Range/Units 22:55 23:07 WBC 13.8 H (4.0-11.0) 10^3/uL RBC 2.18 L (4.20-5.40) 10^6/uL Hgb 8.0 L (12.0-16.0) g/dL Hct 25.3 L (36.0-48.0) % MCV 116.1 H (81.0-99.0) fL MCH 36.7 H (26.7-34.0) pg MCHC 31.6 (29.9-35.2) g/dL RDW 15.9 H (11.0-15.0) % Plt Count 421 (150-450) 10^3/uL MPV 11.6 (9.5-13.5) fL Seg Neuts % (Manual) 80.0 H (43.0-75.0) Band Neutrophils % 14.0 H (0-5) % Lymphocytes % (Manual) 2.0 L (20.5-60.0) % Monocytes % (Manual) 2.0 (1.7-12.0) % Eosinophils % (Manual) 2.0 (0.9-7.0) % Basophils % (Manual) 0.0 L (0.2-2.0) % Neutrophils # (Manual) 11.04 H (1.4-6.5) 10^3/uL Band Neutrophils # 1.9 H (0.0-0.3) 10^3/uL Lymphocytes # (Manual) 0.27 L (1.20-3.80) 10^3/uL Monocytes # (Manual) 0.27 L (0.30-0.80) 10^3/uL Eosinophils # (Manual) 0.27 (0.00-0.70) 10^3/uL Basophils # (Manual) 0.00 (0.00-0.10) 10^3/uL PT 11.5 (9.0-11.6) sec INR 1.09 APTT 26.8 (22.3-36.2) sec Sodium 137 (136-145) mmol/L Potassium 4.9 (3.5-5.1) mmol/L Chloride 104 (98-107) mmol/L Carbon Dioxide 20.4 L (21.0-32.0) mmol/L Anion Gap 17.5 BUN 42.0 H (7.0-18.0) mg/dL Creatinine 2.34 H (0.55-1.02) mg/dL Est GFR ( Amer) 24 L (>=60 mL/min/1.73m^2) Est GFR (Non-Af Amer) 20 L (>=60 mL/min/1.73m^2) BUN/Creatinine Ratio 17.9 Glucose 102 (74-106) mg/dL Lactate 6.6 H* (0.4-2.0) mmol/L Calcium 7.9 L (8.5-10.1) mg/dL Troponin I High Sens 12.5 (4.0-51.3) pg/mL NT-Pro-B Natriuret Pep 8782.0 H* (<=1800.0) pg/mL Influenza Type A Ag Negative Influenza Type B Ag Negative SARS-CoV-2 Ag (CV2AG) Negative (NEGATIVE) Imaging Data Chest x-ray: Radiologist's impression: Mild enlarged heart size, central pulmonary vascular congestion, no edema or pneumonia, no pleural effusion or pneumothorax ECG Data Attestation: I personally reviewed and interpreted this ECG as follows: (Atrial fibrillation with a heart rate of 100. No acute change) Critical Care Time Critical Care Time Critical Care Time: Yes Total Critical Care Time: 100 Attestation: Due to the high probability of sudden and clinically significant deterioration in the patient's condition he/she required the highest level of my preparedness to intervene urgently I provided critical care time including documentation time, medication orders and management, reevaluation, vital sign assessment, ordering and reviewing of lab tests, ordering and reviewing of x-ray studies, and admission orders. Aggregate critical care time is 100 minutes including only time during which I was engaged in work directly related to his/her care and did not include time spent treating other patients simultaneously. Discharge Plan Discharge Chief Complaint: Shortness of Breath/Dyspnea Clinical Impression: Acute hypotension, Respiratory failure Patient Disposition: Admitted As Inpatient Time of Disposition Decision: 01:49 Condition: Critical
[2024-11-20 23:32] LABS: Influenza Virus A Antigen Negative; Influenza Virus B Antigen Negative; Internal Control Within Normal Limits; SARS-CoV-2 Ag NEGATIVE (NEGATIVE)
[2024-11-20 23:32] LABS: Anion Gap 17.5; BUN Creatinine Ratio 17.9; Calcium 7.9 mg/dL (8.5-10.1); Carbon Dioxide 20.4 mmol/L (21.0-32.0); Chloride 104 mmol/L (98-107); Estimated GFR (African America 24 (>=60 mL/min/1.73m^2); Estimated GFR (Non-African Ame 20 (>=60 mL/min/1.73m^2); Glucose 102 mg/dL (74-106); Potassium 4.9 mmol/L (3.5-5.1); Sodium 137 mmol/L (136-145); Troponin I High Sensitivity 12.5 pg/mL (4.0-51.3)
[2024-11-20 23:35] LABS: Lactate/Lactic Acid 6.6 mmol/L (0.4-2.0)
[2024-11-20 23:49] LABS: Eosinophils Absolute Manual 0.27 10^3/uL (0.00-0.70); Lymphocytes Absolute Manual 0.27 10^3/uL (1.20-3.80); Monocytes Absolute Manual 0.27 10^3/uL (0.30-0.80); Segmented Neut Absolute Manual 11.04 10^3/uL (1.4-6.5)
[2024-11-20 23:50] LABS: Band Neutrophils Absolute 1.9 10^3/uL (0.0-0.3)
[2024-11-20] MEDS: 0.9 % SODIUM CHLORIDE 1,000 ML 1000 ML IV (23:50)
[2024-11-21] VITALS (58 sets, daily range): BP systolic 43–116; BP diastolic 21–68; PULSE 88–159; RESP 14; TEMP 35.9–37.4; O2SAT 53–96; BMI 46.1
[2024-11-21] MEDS: NOREPINEPHRINE BITARTRATE 4 MG in DEXTROSE 5 % IN WATER 250 ML 30.48 MG IV (00:10)
[2024-11-21 00:55] LABS: INR 1.09; Partial Thromboplastin Time 26.8 sec (22.3-36.2); Prothrombin Time 11.5 sec (9.0-11.6)
[2024-11-21] MEDS: PIPERACILLIN SODIUM/TAZOBACTAM 3.375 GM in 0.9 % SODIUM CHLORIDE 50 ML IV (01:00)
--- NOTE | 2024-11-21 01:45 | PC.NURSE ---
No urine in Wood. Bladder scan done with 4 ml measured. Bladder irrigation done with 60 ml. 55 ml returned.
[2024-11-21] MEDS: VANCOMYCIN HCL 750 MG in 0.9 % SODIUM CHLORIDE 250 ML 250 MG IV (02:00)
[2024-11-21 02:06] LABS: ABG PCO2 39.1 mmHg (35.0-45.0); HCO3 ABG 17.5 mmol/L (22.0-26.0)
[2024-11-21 02:07] LABS: Allen Test POSITIVE (POSITIVE); Base Excess ABG -9.6 mmol/L (-2.0-2.0); Oxygen Saturation ABG 98.9 %; pH ABG 7.259 (7.350-7.450)
[2024-11-21 02:09] LABS: BIPAP Pressure 18/6; Fractionated Inspired Oxygen 100 %; O2 Mode BIPAP; Puncture Site LR
--- NOTE | 2024-11-21 02:26 | PC.NURSE ---
Levophed titrated up several times due to SBP under 90. Pt was incontinent of liquid stool. Cleansed of stool. LLE unwrapped and there are several abraded shawnee that are scabbed over. There is also an open, but dry area. The skin is red, warm and swollen. What appeared to be an edema wrap was removed . There is no drainage.
--- NOTE | 2024-11-21 02:45 | PC.NURSE ---
Manual BPs also taken and these are close to the monitor numbers.
[2024-11-21] MEDS: 0.9 % SODIUM CHLORIDE 500 ML IV (03:02)
--- NOTE | 2024-11-21 03:32 | PC.NURSE ---
Pt is at her baseline behavior. Levophed at 22 mcgs, SBP in mid 60's to mid 90's. HR at 120's to 130's afib continued with runs of PAT (that last a few seconds)in the 170's. MD aware. NNO received. Will keep Levophed at 22 mcgs due to tachycardia and runs of PAT.
--- NOTE | 2024-11-21 04:41 | PC.NURSE ---
Hung new bag of Levophed.
[2024-11-21] MEDS: 0.9 % SODIUM CHLORIDE 1,000 ML 100 ML IV (04:44)
--- OUTSIDE RECORDS SUMMARY | 2024-11-21 05:04 | XMS_ITS | CCD ---
Author Organization [facility] Care Team Providers Care Cotton Factor Name Role Phone ELFEGO SIMMS Admitting Unavailable NASREEN MARY Primary Care Unavailable PEDRO CARLSON Unavailable GIOVANA PONCE Attending Unavailable [place] Procedure Practitioner Unavailab SOY Kessler Surgeon Unavailable [...] TAPE] Propensity to adverse reactions (disorder) [facility] Repository (3 sources) Codeine; Translations: [codeine] Drug Allergy [facility] Repository (3 sources) diazePAM; Translations: [Valium] Drug Allergy [facility] Repository (2 sources) Morphine; Translations: [morphine] Drug Allergy 013 [facility] Repository (4 sources) Prochlorperazine; Translations: [Compazine] Drug Allergy 013 Unknown [facility] Repository (1 source) Acetaminophen Drug Allergy Unknown [employer] [facility] [employer] Other (2 sources) Codeine Drug Allergy Unknown [employer] [facility] [employer] Other (1 source) Codeine Drug Allergy Unknown [facility] [employer] Other (1 source) Morphine Drug Allergy Hallucinations [facility] [employer] Other (2 sources) Prochlorperazine Drug Allergy Unknown [facility] [employer] Other (1 source) Tape, Permeable Adhesive Propensity to adverse reactions Unknown [facility] [employer] Other (1 source) Allopurinol Drug Allergy 014 The [facility] Repository (1 source) Morphine Drug Allergy 013 [facility] Repository (1 source) Adhesive Tape; Translations: [Tape] Propensity to adverse reactions (disorder) [facility] Repository Medications Current Medications Medication Drug Class(es) [...] B12 100 MCG Orally Active Vitamin D3 [id number] UNIT/GM (1 source) Vitamin D3 86389 00 UNIT/GM Active Completed/Discontinued Medications Medication Drug [...] 10-10-2022 Chronic Other aftercare (1 source) Other half-way (current) drug therapy; Translations: [OTH [facility] CURRENT DRUG THERAPY] Onset: 10-10-2022 Episodic Other aftercare (1 source) group home (current) use of aspirin; Translations: [[facility] CURRENT USE OF ASPIRIN] Onset: 10-10-2022 Episodic [...] Test Name Value Interpretation Reference Range Facility [facility] Record[facility] 12[facility]15 Jail Records [id number] Normal [facility] CBC AUTO DIFFon 10-06-2022 BASO # 0.0 103/ul Normal 0.0-0.1 [facility] Comment on above: Performed By: #### C MP #### [facility] [address] [place] [address] Dr. Charlotte Argueta Basophils/100 WBC (Bld) 0.1 % Critically low 0.2-2.0 [facility] Comment on above: Performed By: #### C MP #### [facility] [address] [place] [address] Dr. Charlotte Argueta EO # 0.0 103/ul Normal 0.0-0.7 [facility] Comment on above: Performed By: #### C MP #### [facility] [address] [place] [address] Dr. Charlotte Argueta Eosinophils/100 WBC (Bld) 0.0 % Critically low 0.9-7.0 [facility] Comment on above: Performed By: #### C MP #### [facility] [address] [place] [address] Dr. Charlotte Argueta Erythrocyte distribution width (RBC) [Ratio] 15.4 % Critically high 11.0-15.0 [facility] Comment on above: Performed By: #### C MP #### [facility] [address] [place] [address] Dr. Charlotte Argueta Hematocrit (Bld) [Volume fraction] 26.1 % Critically low 36.0-48.0 [facility] Comment on above: Performed By: #### C MP #### [facility] [address] [place] [address] Dr. Charlotte Argueta Hemoglobin (Bld) [Mass/Vol] 9.3 g/dL Critically low 12.0-16.0 [facility] Comment on above: Performed By: #### C MP #### [facility] [address] [place] [address] Dr. Charlotte Argueta IG # 0.13 10e3/ul Critically high 0.00-0.03 [facility] Comment on above: Performed By: #### C MP #### [facility] [address] [place] [address] Dr. Charlotte Argueta IG % 1.9 % Critically high 0.0-0.5 [facility] Comment on above: Performed By: #### C MP #### [facility] [address] [place] [address] Dr. Charlotte Argueta LYMPH # 0.3 103/ul Critically low 1.2-3.8 [facility] Comment on above: Performed By: #### C MP #### [facility] [address] [place] [address] Dr. Charlotte Argueta Lymphocytes/100 WBC (Bld) 5.0 % Critically low 20.5-60.0 [facility] Comment on above: Performed By: #### C MP #### [facility] [address] [place] [address] Dr. Charlotte Argueta MANUAL DIFF REQ NO Normal [facility] Comment on above: Performed By: #### C MP #### [facility] [address] [place] [address] Dr. Charlotte Argueta MCH (RBC) [Entitic mass] 29.3 pg Normal 26.7-34.0 [facility] Comment on above: Performed By: #### C MP #### [facility] [address] [address] [address] Charlotte Argueta MCHC (RBC) [Mass/Vol] 35.6 g/dL Critically high 29.9-35.2 [facility] Comment on above: Performed By: #### C MP #### [facility] [address] [place] [address] Dr. Charlotte Argueta MCV (RBC) [Entitic vol] 82.3 fL Normal 81.0-99.0 [facility] Comment on above: Performed By: #### C MP #### [facility] [address] [place] [address] Dr. Charlotte Argueta MONO # 0.6 103/ul Normal 0.3-0.8 [facility] Comment on above: Performed By: #### C MP #### [facility] [address] [place] [address] Dr. Charlotte Argueta Monocytes/100 WBC (Bld) 9.4 % Normal 1.7-12.0 [facility] Comment on above: Performed By: #### C MP #### [facility] [address] [place] [address] Dr. Charlotte Argueta NEUT # 5.7 103/ul Normal 1.4-6.5 [facility] Comment on above: Performed By: #### C MP #### [facility] [address] [place] [address] Dr. Charlotte Argueta Neutrophils/100 WBC (Bld) 83.6 % Critically high 43.0-75.0 [facility] Comment on above: Performed By: #### C MP #### [facility] [address] [place] [address] Dr. Charlotte Argueta Platelet mean volume (Bld) [Entitic vol] 9.7 fL Normal 9.5-13.5 [facility] Comment on above: Performed By: #### C MP #### [facility] [address] [place] [address] Dr. Charlotte Argueta PLT 410 103/ul Normal 150-450 [facility] Comment on above: Performed By: #### C MP #### [facility] [address] [address] [address] Charlotte Argueta RBC 3.17 106/ul Critically low 4.20-5.40 [facility] Comment on above: Performed By: #### C MP #### [facility] [address] [address] [address] Charlotte Argueta WBC 6.8 103/ul Normal 4.0-11.0 [facility] Comment on above: Performed By: #### C MP #### [facility] [address] [place] [address] Dr. Charlotte Argueta PROF 14(COMP METB)on 023 Albumin [Mass/Vol] 2.9 g/dL Critically low 3.4-5.0 [facility] Comment on above: Performed By: #### T SH, FT3 #### [facility] [address] [place] [address] Dr. Charlotte Argueta Albumin/Globulin [Mass ratio] 0.8 {ratio} Normal [facility] Comment on above: Performed By: #### T SH, FT3 #### [facility] [address] [place] [address] Dr. Charlotte Argueta ALP [Catalytic activity/Vol] 79 U/L Normal 46-116 [facility] Comment on above: Performed By: #### T SH, FT3 #### [facility] [address] [place] [address] Dr. Charlotte Argueta ALT [Catalytic activity/Vol] 13 U/L Critically low 14-59 [facility] Comment on above: Performed By: #### T SH, FT3 #### [facility] [address] [place] [address] Dr. Charlotte Argueta Anion gap [Moles/Vol] 12.2 mmol/L Normal [facility] Comment on above: Performed By: #### T SH, FT3 #### [facility] [address] [place], [place] [id number] Dr. Charlotte Argueta AST [Catalytic activity/Vol] 13 U/L Critically low 15-37 [facility] Comment on above: Performed By: #### T SH, FT3 #### [facility] [address] [place] [address] Dr. Charlotte Argueta Bilirubin [Mass/Vol] 0.2 mg/dL Normal 0.2-1.0 [facility] Comment on above: Performed By: #### T SH, FT3 #### [facility] [address] [place] [address] Dr. Charlotte Argueta Calcium [Mass/Vol] 8.5 mg/dL Normal 8.5-10.1 [facility] Comment on above: Performed By: #### T SH, FT3 #### [facility] [address] [place] [address] Dr. Charlotte Argueta Chloride [Moles/Vol] 102 mmol/L Normal 98-107 [facility] Comment on above: Performed By: #### T SH, FT3 #### [facility] [address] [place] [address] Dr. Charlotte Argueta CO2 [Moles/Vol] 26.4 mmol/L Normal 21.0-32.0 [facility] Comment on above: Performed By: #### T SH, FT3 #### [facility] [address] [place] [address] Dr. Charlotte Argueta Creatinine [Mass/Vol] 1.25 mg/dL Critically high 0.55-1.02 [facility] Comment on above: Performed By: #### T SH, FT3 #### [facility] [address] [place] [address] Dr. Charlotte Argueta EGFR-AF ANGUILLAN 50 mL/min/1.73m2 Critically low >=60 [facility] Comment on above: Performed By: #### T SH, FT3 #### [facility] [address] [place] [address] Dr. Charlotte Argueta EGFR-NON AF ANGUILLAN 41 mL/min/1.73m2 Critically low >=60 [facility] Comment on above: Performed By: #### T SH, FT3 #### [facility] [address] [place] [address] Dr. Charlotte Argueta Globulin (S) [Mass/Vol] 3.5 g/dL Normal [facility] Comment on above: Performed By: #### T MARY, FT3 #### [facility] [address] [place] [address] Dr. Charlotte Argueta Glucose [Mass/Vol] 217 mg/dL Critically high 74-106 [facility] Comment on above: Performed By: #### T MARY, FT3 #### [facility] [address] [place] [address] Dr. Charlotte Argueta Potassium [Moles/Vol] 3.6 mmol/L Normal 3.5-5.1 [facility] Comment on above: Performed By: #### T MARY, FT3 #### [facility] [address] [place] [address] Dr. Charlotte Argueta Protein [Mass/Vol] 6.4 g/dL Normal 6.4-8.2 [facility] Comment on above: Performed By: #### T MARY, FT3 #### [facility] [address] [place] [address] Dr. Charlotte Argueta Sodium [Moles/Vol] 137 mmol/L Normal 136-145 [facility] Comment on above: Performed By: #### T MARY, FT3 #### [facility] [address] [place] [address] Dr. Charlotte Argueta Urea nitrogen [Mass/Vol] 21.0 mg/dL Critically high 7.0-18.0 [facility] Comment on above: Performed By: #### T MARY, FT3 #### [facility] [address] [place] [address] Dr. Charlotte Argueta Urea nitrogen/Creatinine [Mass ratio] 16.8 mg/mg Normal [facility] Comment on above: Performed By: #### T MARY, FT3 #### [facility] [address] [place] [address] Dr. Charlotte Argueta CBC AUTO DIFFon 10-05-2022 BASO # 0.0 103/ul Normal 0.0-0.1 [facility] Comment on above: Performed By: #### C MREP #### [facility] [address] [address] [address] Charlotte Argueta Basophils/100 WBC (Bld) 0.2 % Normal 0.2-2.0 [facility] Comment on above: Performed By: #### C MREP #### [facility] [address] [address] [address] Charlotte Argueta EO # 0.0 103/ul Normal 0.0-0.7 [facility] Comment on above: Performed By: #### C MREP #### [facility] [address] [place] [address] Dr. Charlotte Argueta Eosinophils/100 WBC (Bld) 0.0 % Critically low 0.9-7.0 [facility] Comment on above: Performed By: #### C MREP #### [facility] [address] [place] [address] Dr. Charlotte Argueta Erythrocyte distribution width (RBC) [Ratio] 16.6 % Critically high 11.0-15.0 [facility] Comment on above: Performed By: #### C MREP #### [facility] [address] [place] [address] Dr. Charlotte Argueta Hematocrit (Bld) [Volume fraction] 30.6 % Critically low 36.0-48.0 [facility] Comment on above: Performed By: #### C MREP #### [facility] [address] [place] [address] Dr. Charlotte Argueta Hemoglobin (Bld) [Mass/Vol] 9.5 g/dL Critically low 12.0-16.0 [facility] Comment on above: Performed By: #### C MREP #### [facility] [address] [place] [address] Dr. Charlotte Argueta IG # 0.04 10e3/ul Critically high 0.00-0.03 [facility] Comment on above: Performed By: #### C MREP #### [facility] [address] [place] [address] Dr. Charlotte Argueta IG % 0.8 % Critically high 0.0-0.5 [facility] Comment on above: Performed By: #### C MREP #### [facility] [address] [address] [address] Charlotte Argueta LYMPH # 0.4 103/ul Critically low 1.2-3.8 [facility] Comment on above: Performed By: #### C MREP #### [facility] [address] [address] [address] Charlotte Argueta Lymphocytes/100 WBC (Bld) 7.6 % Critically low 20.5-60.0 [facility] Comment on above: Performed By: #### C MREP #### [facility] [address] [address] [address] Charlotte Argueta MANUAL DIFF REQ NO Normal [facility] Comment on above: Performed By: #### C MREP #### [facility] [address] [address] [address] Charlotte Argueta MCH (RBC) [Entitic mass] 29.7 pg Normal 26.7-34.0 [facility] Comment on above: Performed By: #### C MREP #### [facility] [address] [address] [address] Charlotte Argueta MCHC (RBC) [Mass/Vol] 31.0 g/dL Normal 29.9-35.2 [facility] Comment on above: Performed By: #### C MREP #### [facility] [address] [address] [address] Charlotte Argueta MCV (RBC) [Entitic vol] 95.6 fL Normal 81.0-99.0 [facility] Comment on above: Performed By: #### C MREP #### [facility] [address] [address] [address] Charlotte Argueta MONO # 0.2 103/ul Critically low 0.3-0.8 [facility] Comment on above: Performed By: #### C MREP #### [facility] [address] [address] [address] Charlotte Argueta Monocytes/100 WBC (Bld) 3.5 % Normal 1.7-12.0 [facility] Comment on above: Performed By: #### C MREP #### [facility] [address] [address] [address] Charlotte Argueta NEUT # 4.5 103/ul Normal 1.4-6.5 [facility] Comment on above: Performed By: #### C MREP #### [facility] [address] [address] [address] Charlotte Argueta Neutrophils/100 WBC (Bld) 87.9 % Critically high 43.0-75.0 [facility] Comment on above: Performed By: #### C MREP #### [facility] [address] [address] [address] Charlotte Argueta Platelet mean volume (Bld) [Entitic vol] 11.0 fL Normal 9.5-13.5 [facility] Comment on above: Performed By: #### C MREP #### [facility] [address] [address] [address] Charlotte Argueta PLT 441 103/ul Normal 150-450 [facility] Comment on above: Performed By: #### C MREP #### [facility] [address] [address] [address] Charlotte Argueta RBC 3.20 106/ul Critically low 4.20-5.40 [facility] Comment on above: Performed By: #### C MREP #### [facility] [address] [address] [address] Charlotte Argueta WBC 5.2 103/ul Normal 4.0-11.0 [facility] Comment on above: Performed By: #### C MREP #### [facility] [address] [address] [address] Charlotte Argueta CULTURE URINEon 10-05-2022 CULTURE URINE Culture Observations : NO GROWTH. Normal [facility] Comment on above: Performed By: #### T SH, FT3 #### [facility] [address] [address] [address] Charlotte Argueta PROF 14(COMP METB)on 023 Albumin [Mass/Vol] 2.8 g/dL Critically low 3.4-5.0 Th e [facility] Comment on above: Performed By: #### C MP #### [facility] [address] [address] [address] Charlotte Argueta Albumin/Globulin [Mass ratio] 0.8 {ratio} Normal [facility] Comment on above: Performed By: #### C MP #### [facility] [address] [address] [address] Charlotte Argueta ALP [Catalytic activity/Vol] 92 U/L Normal 46-116 [facility] Comment on above: Performed By: #### C MP #### [facility] [address] [address] [address] Charlotte Argueta ALT [Catalytic activity/Vol] 14 U/L Normal 14-59 [facility] Comment on above: Performed By: #### C MP #### [facility] [address] [place] [address] Dr. Charlotte Argueta Anion gap [Moles/Vol] 11.0 mmol/L Normal [facility] Comment on above: Performed By: #### C MP #### [facility] [address] [place] [address] Dr. Charlotte Argueta AST [Catalytic activity/Vol] 14 U/L Critically low 15-37 [facility] Comment on above: Performed By: #### C MP #### [facility] [address] [place] [address] Dr. Charlotte Argueta Bilirubin [Mass/Vol] 0.2 mg/dL Normal 0.2-1.0 [facility] Comment on above: Performed By: #### C MP #### [facility] [address] [place] [address] Dr. Charlotte Argueta Calcium [Mass/Vol] 8.7 mg/dL Normal 8.5-10.1 [facility] Comment on above: Performed By: #### C MP #### [facility] [address] [address] [address] Charlotte Argueta Chloride [Moles/Vol] 102 mmol/L Normal 98-107 [facility] Comment on above: Performed By: #### C MP #### [facility] [address] [address] [address] Charlotte Argueta CO2 [Moles/Vol] 28.0 mmol/L Normal 21.0-32.0 [facility] Comment on above: Performed By: #### C MP #### [facility] [address] [address] [address] Charlotte Argueta Creatinine [Mass/Vol] 1.09 mg/dL Critically high 0.55-1.02 [facility] Comment on above: Performed By: #### C MP #### [facility] [address] [address] [address] Charlotte Argueta EGFR-AF ANGUILLAN 59 mL/min/1.73m2 Critically low >=60 [facility] Comment on above: Performed By: #### C MP #### [facility] [address] [address] [address] Charlotte Argueta EGFR-NON AF ANGUILLAN 49 mL/min/1.73m2 Critically low >=60 [facility] Comment on above: Performed By: #### C MP #### [facility] [address] [address] [address] Charlotte Argueta Globulin (S) [Mass/Vol] 3.7 g/dL Normal [facility] Comment on above: Performed By: #### C MP #### [facility] [address] [address] [address] Charlotte Argueta Glucose [Mass/Vol] 177 mg/dL Critically high 74-[address] [facility] Comment on above: Performed By: #### C MP #### [facility] [address] [address] [address] Charlotte Argueta Potassium [Moles/Vol] 4.0 mmol/L Normal 3.5-5.1 [facility] Comment on above: Performed By: #### C MP #### [facility] [address] [address] [address] Charlotte Argueta Protein [Mass/Vol] 6.5 g/dL Normal 6.4-8.2 [facility] Comment on above: Performed By: #### C MP #### [facility] [address] [address] [address] Charlotte Argueta Sodium [Moles/Vol] 137 mmol/L Normal 136-145 [facility] Comment on above: Performed By: #### C MP #### [facility] [address] [place] [address] Dr. Charlotte Argueta Urea nitrogen [Mass/Vol] 20.0 mg/dL Critically high 7.0-18.0 [facility] Comment on above: Performed By: #### C MP #### [facility] [address] [place] [address] Dr. Charlotte Argueta Urea nitrogen/Creatinine [Mass ratio] 18.3 mg/mg Normal [facility] Comment on above: Performed By: #### C MP #### [facility] [address] [place] [address] Dr. 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 Charlotte Argueta Clarity (U) CLEAR Normal CLEAR [facility] Comment on above: Performed By: #### C MREP #### [facility] [address] [place] [address] Dr. Charlotte Argueta Color (U) LT. YELLOW Normal YELLOW [facility] Comment on above: Performed By: #### C MREP #### [facility] [address] [place] [address] Dr. Charlotte Argueta Glucose Ql (U) Negative Normal NEGATIVE [facility] Comment on above: Performed By: #### C MREP #### [facility] [address] [place] [address] Dr. Charlotte Argueta Hemoglobin Ql (U) Negative Normal NEGATIVE [facility] Comment on above: Performed By: #### C MREP #### [facility] [address] [place] [address] Dr. Charlotte Argueta Ketones Ql (U) Negative Normal NEGATIVE [facility] Comment on above: Performed By: #### C MREP #### [facility] [address] [address] [address] Charlotte Argueta LEUKOCYTES SMALL Abnormal NEGATIVE The [facility] Comment on above: Performed By: #### C MREP #### [facility] [address] [address] [address] Charlotte Argueta Nitrite Ql (U) Negative Normal NEGATIVE The [facility] Comment on above: Performed By: #### C MREP #### [facility] [address] [place] [address] Dr. Charlotte Argueta pH (U) 6.0 [pH] Normal 5-9 [facility] Comment on above: Performed By: #### C MREP #### [facility] [address] [place] [address] Dr. Charlotte Argueta SPEC GRAVITY 1.015 Normal 1.005-<=1.025 The [facility] Comment on above: Performed By: #### C MREP #### [facility] [address] [place] [address] Dr. Charlotte Argueta UA PROTEIN Negative Normal NEGATIVE/ TRACE The [facility] Comment on above: Performed By: #### C MREP #### [facility] [address] [place] [address] Dr. Charlotte Argueta UR MICRO IND INDICATED Normal [facility] Comment on above: Performed By: #### C MREP #### [facility] [address] [place] [address] Dr. Charlotte Argueta Urobilinogen Qn (U) 0.2 {Kathia'U}/dL Normal 0.2 - 1. 0 [facility] Comment on above: Performed By: #### C MREP #### [facility] [address] [place] [address] Dr. Charlotte Argueta URINE MICROSCOPIC ONLYon BACTERIA NONE SEEN Normal NONE SEEN The [facility] Comment on above: Performed By: #### C MREP #### [facility] [address] [place] [address] Dr. Charlotte Argueta Bacteria identified Cx Nom (U) INDICATED Normal [facility] Comment on above: Performed By: #### C MREP #### [facility] [address] [place] [address] Dr. Charlotte Argueta CAST NONE SEEN Normal NONE SEEN [facility] Comment on above: Performed By: #### C MREP #### [facility] [address] [place] [address] Dr. Charlotte Argueta Crystals LM Nom (Urine sed) NONE SEEN Normal NONE SEEN [facility] Comment on above: Performed By: #### C MREP #### [facility] [address] [place] [address] Dr. Charlotte Argueta Epithelial cells LM Ql (Urine sed) RARE Normal NONE SEEN /RARE The [facility] Comment on above: Performed By: #### C MREP #### [facility] [address] [place] [address] Dr. Charlotte Argueta MUCOUS NONE SEEN Normal NONE SEEN The [facility] Comment on above: Performed By: #### C MREP #### [facility] [address] [place] [address] Dr. Charlotte Argueta RBC 0-2 Normal 0-2 [facility] Comment on above: Performed By: #### C MREP #### [facility] [address] [place] [address] Dr. Charlotte Argueta WBC 2-5 Abnormal NONE SEEN [facility] Comment on above: Performed By: #### C MREP #### [facility] [address] [place] [address] Dr. Charlotte Argueta BNPon 10-04-2022 Natriuretic peptide B (Bld) [Mass/Vol] 4509.0 pg/mL Critically high <=1,800.0 [facility] Comment on above: Performed By: #### B LDCX1 #### [facility] [address] [place] [address] Dr. Charlotte Argueta CBC AUTO DIFFon 10-04-2022 BASO # 0.0 103/ul Normal 0.0-0.1 [facility] Comment on above: Performed By: #### T SH, FT3 #### [facility] [address] [place] [address] Dr. Charlotte Argueta Basophils/100 WBC (Bld) 0.5 % Normal 0.2-2.0 [facility] Comment on above: Performed By: #### T SH, FT3 #### [facility] [address] [place] [address] Dr. Charlotte Argueta EO # 0.6 103/ul Normal 0.0-0.7 [facility] Comment on above: Performed By: #### T SH, FT3 #### [facility] [address] [place] [address] Dr. Charlotte Argueta Eosinophils/100 WBC (Bld) 6.9 % Normal 0.9-7.0 [facility] Comment on above: Performed By: #### T SH, FT3 #### [facility] [address] [place] [address] Dr. Charlotte Argueta Erythrocyte distribution width (RBC) [Ratio] 16.5 % Critically high 11.0-15.0 [facility] Comment on above: Performed By: #### T SH, FT3 #### [facility] [address] [place] [address] Dr. Charlotte Argueta Hematocrit (Bld) [Volume fraction] 30.9 % Critically low 36.0-48.0 [facility] Comment on above: Performed By: #### T SH, FT3 #### [facility] [address] [place] [address] Dr. Charlotte Argueta Hemoglobin (Bld) [Mass/Vol] 9.8 g/dL Critically low 12.0-16.0 [facility] Comment on above: Performed By: #### T SH, FT3 #### [facility] [address] [place] [address] Dr. Charlotte Argueta IG # 0.05 10e3/ul Critically high 0.00-0.03 [facility] Comment on above: Performed By: #### T SH, FT3 #### [facility] [address] [place] [address] Dr. Charlotte Argueta IG % 0.6 % Critically high 0.0-0.5 [facility] Comment on above: Performed By: #### T SH, FT3 #### [facility] [address] [place] [address] Dr. Charlotte Argueta LYMPH # 1.9 103/ul Normal 1.2-3.8 [facility] Comment on above: Performed By: #### T SH, FT3 #### [facility] [address] [place] [address] Dr. Charlotte Argueta Lymphocytes/100 WBC (Bld) 23.5 % Normal 20.5-60.0 [facility] Comment on above: Performed By: #### T SH, FT3 #### [facility] [address] [place] [address] Dr. Charlotte Argueta MANUAL DIFF REQ NO Normal [facility] Comment on above: Performed By: #### T SH, FT3 #### [facility] [address] [place] [address] Dr. Charlotte Argueta MCH (RBC) [Entitic mass] 30.2 pg Normal 26.7-34.0 [facility] Comment on above: Performed By: #### T SH, FT3 #### [facility] [address] [place] [address] Dr. Charlotte Argueta MCHC (RBC) [Mass/Vol] 31.7 g/dL Normal 29.9-35.2 [facility] Comment on above: Performed By: #### T SH, FT3 #### [facility] [address] [place] [address] Dr. Charlotte Argueta MCV (RBC) [Entitic vol] 95.4 fL Normal 81.0-99.0 [facility] Comment on above: Performed By: #### T SH, FT3 #### [facility] [address] [place] [address] Dr. Charlotte Argueta MONO # 1.0 103/ul Critically high 0.3-0.8 [facility] Comment on above: Performed By: #### T SH, FT3 #### [facility] [address] [place] [address] Dr. Charlotte Argueta Monocytes/100 WBC (Bld) 12.4 % Critically high 1.7-12.0 [facility] Comment on above: Performed By: #### T SH, FT3 #### [facility] [address] [place] [address] Dr. Charlotte Argueta NEUT # 4.5 103/ul Normal 1.4-6.5 [facility] Comment on above: Performed By: #### T SH, FT3 #### [facility] [address] [place] [address] Dr. Charlotte Argueta Neutrophils/100 WBC (Bld) 56.1 % Normal 43.0-75.0 [facility] Comment on above: Performed By: #### T MARY, FT3 #### [facility] [address] [place] [address] Dr. Charlotte Argueta Platelet mean volume (Bld) [Entitic vol] 10.9 fL Normal 9.5-13.5 [facility] Comment on above: Performed By: #### Andi HERNANDEZ, FT3 #### [facility] [address] [place] [address] Dr. Charlotte Argueta PLT 449 103/ul Normal 150-450 [facility] Comment on above: Performed By: #### T MARY, FT3 #### [facility] [address] [place] [address] Dr. Charlotte Argueta RBC 3.24 106/ul Critically low 4.20-5.40 [facility] Comment on above: Performed By: #### T MARY, FT3 #### [facility] [address] [place] [address] Dr. Charlotte Argueta WBC 8.1 103/ul Normal 4.0-11.0 [facility] Comment on above: Performed By: #### T MARY, FT3 #### [facility] [address] [place] [address] Dr. Charlotte Argueta CTA CHEST WO W [...] by: PIERCE MURGUIA Date: 2022-10-04 21:41 Normal [facility] CULTURE BLOODon 10-04-2022 Microscopic examination of blood, culture Culture Observations: NO GROWTH AT 5 DAYS. Normal [facility] Comment on above: Performed By: #### B LDCX2 #### [facility] [address] [place] [address] Dr. Charlotte Argueta Microscopic examination of blood, culture Culture Observations: NO GROWTH AT 5 DAYS. Normal [facility] Comment on above: Performed By: #### B LDCX1 #### [facility] [address] [place] [address] Dr. Charlotte Argueta D-DIMERon 10-04-2022 D-DIMER 1.22 mg/L FEU Critically high <=0.59 [facility] Comment on above: Performed By: #### B [id number] #### [facility] [address] [place] [address] Dr. Charlotte Argueta D-DIMER COMMENTS SEE BELOW Normal [facility] Comment on above: Result Comment: Incr [...] hospitalization. Performed By: #### B LDCX1 #### [facility] [address] [place] [address] Dr. Charlotte Argueta LACTATE/LACTIC ACIDon 2022 Lactate [Moles/Vol] 3.1 mmol/L Critically high 0.4-1.9 [facility] Comment on above: Performed By: #### C MP #### [facility] [address] [place] [address] Dr. Charlotte Argueta Lactate [Moles/Vol] 0.9 mmol/L Normal 0.4-1.9 [facility] Comment on above: Performed By: #### T SH, FT3 #### [facility] [address] [place] [address] Dr. Charlotte Argueta PROF 14(COMP METB)on 023 Albumin [Mass/Vol] 2.7 g/dL Critically low 3.4-5.0 [facility] Comment on above: Performed By: #### B [id number] #### [facility] [address] [place] [address] Dr. Charlotte Argueta Albumin/Globulin [Mass ratio] 0.8 {ratio} Normal [facility] Comment on above: Performed By: #### B LDCX1 #### [facility] [address] [place] [address] Dr. Charlotte Argueta ALP [Catalytic activity/Vol] 86 U/L Normal 46-116 [facility] Comment on above: Performed By: #### B LDCX1 #### [facility] [address] [place] [address] Dr. Charlotte Argueta ALT [Catalytic activity/Vol] 13 U/L Critically low 14-59 [facility] Comment on above: Performed By: #### B LDCX1 #### [facility] [address] [address] [address] Charlotte Argueta Anion gap [Moles/Vol] 13.2 mmol/L Normal [facility] Comment on above: Performed By: #### B LDCX1 #### [facility] [address] [address] [address] Charlotte Argueta AST [Catalytic activity/Vol] 14 U/L Critically low 15-37 [facility] Comment on above: Performed By: #### B LDCX1 #### [facility] [address] [place] [address] Dr. Charlotte Argueta Bilirubin [Mass/Vol] 0.3 mg/dL Normal 0.2-1.0 [facility] Comment on above: Performed By: #### B LDCX1 #### [facility] [address] [place] [address] Dr. Charlotte Argueta Calcium [Mass/Vol] 8.5 mg/dL Normal 8.5-10.1 [facility] Comment on above: Performed By: #### B [id number] #### [facility] [address] [address] [address] Charlotte Argueta Chloride [Moles/Vol] 105 mmol/L Normal 98-107 [facility] Comment on above: Performed By: #### B [id number] #### [facility] [address] [place] [address] Dr. Charlotte Argueta CO2 [Moles/Vol] 27.5 mmol/L Normal 21.0-32.0 [facility] Comment on above: Performed By: #### B [id number] #### [facility] [address] [place] [address] Dr. Charlotte Argueta Creatinine [Mass/Vol] 1.11 mg/dL Critically high 0.55-1.02 [facility] Comment on above: Performed By: #### B LDCX1 #### [facility] [address] [place] [address] Dr. Charlotte Argueta EGFR-AF ANGUILLAN 58 mL/min/1.73m2 Critically low >=60 [facility] Comment on above: Performed By: #### B [id number] #### [facility] [address] [address] [address] Charlotte Argueta EGFR-NON AF ANGUILLAN 48 mL/min/1.73m2 Critically low >=60 [facility] Comment on above: Performed By: #### B [id number] #### [facility] [address] [address] [address] Charlotte Argueta Globulin (S) [Mass/Vol] 3.6 g/dL Normal [facility] Comment on above: Performed By: #### B [id number] #### [facility] [address] [address] [address] Charlotte Argueta Glucose [Mass/Vol] 85 mg/dL Normal 74-106 [facility] Comment on above: Performed By: #### B [id number] #### [facility] [address] [address] [address] Charlotte Argueta Potassium [Moles/Vol] 3.7 mmol/L Normal 3.5-5.1 [facility] Comment on above: Performed By: #### B LDCX1 #### [facility] [address] [address] [address] Charlotte Argueta Protein [Mass/Vol] 6.3 g/dL Critically low 6.4-8.2 [facility] Comment on above: Performed By: #### B [id number] #### [facility] [address] [address] [address] Charlotte Argueta Sodium [Moles/Vol] 142 mmol/L Normal 136-145 [facility] Comment on above: Performed By: #### B [id number] #### [facility] [address] [address] [address] Charlotte Argueta Urea nitrogen [Mass/Vol] 25.0 mg/dL Critically high 7.0-18.0 [facility] Comment on above: Performed By: #### B [id number] #### [facility] [address] [address] [address] Charlotte Argueta Urea nitrogen/Creatinine [Mass ratio] 22.5 mg/mg Normal [facility] Comment on above: Performed By: #### B [id number] #### [facility] [address] [place] [address] Dr. Charlotte Argueta RESPIRATORY PANEL PLUSon Adenovirus Not detected Normal NOT DETECTED [facility] Comment on above: Performed By: #### C MP #### [facility] [address] [place] [address] Dr. Charlotte Mullen. Parapertusis Not detected Normal NOT DETECTED The [facility] Comment on above: Performed By: #### C MP #### [facility] [address] [place] [address] Dr. Charlotte Mullen. Pertussis Not detected Normal NOT DETECTED [facility] Comment on above: Performed By: #### C MP #### [facility] [address] [place] [address] Dr. Charlotte Argueta Chlamydia Pneumoniae Not detected Normal NOT DETECTED The [facility] Comment on above: Performed By: #### C MP #### [facility] [address] [place] [address] Dr. Charlotte Argueta Coronavirus 229E Not detected Normal NOT DETECTED [facility] Comment on above: Performed By: #### C MP #### [facility] [address] [place] [address] Dr. Charlotte Argueta Coronavirus HKU1 Not detected Normal NOT DETECTED [facility] Comment on above: Performed By: #### C MP #### [facility] [address] [place] [address] Dr. Charlotte Argueta Coronavirus NL63 Not detected Normal NOT DETECTED [facility] Comment on above: Performed By: #### C MP #### [facility] [address] [place] [address] Dr. Charlotte Argueta Coronavirus OC43 Not detected Normal NOT DETECTED [facility] Comment on above: Performed By: #### C MP #### [facility] [address] [place] [address] Dr. Charlotte Argueta Influenza A H1 2009 Not detected Normal NOT DETECTED [facility] Comment on above: Performed By: #### C MP #### [facility] [address] [place] [address] Dr. Charlotte Argueta Influenza A H3 Not detected Normal NOT DETECTED [facility] Comment on above: Performed By: #### C MP #### [facility] [address] [place] [address] Dr. Charlotte Argueta Influenza B Not detected Normal NOT DETECTED [facility] Comment on above: Performed By: #### C MP #### [facility] [address] [address] [address] Charlotte Argueta Metapneumovirus Not detected Normal NOT DETECTED [facility] Comment on above: Performed By: #### C MP #### [facility] [address] [place] [address] Dr. Charlotte Argueta Mycoplas. Pneumoniae Not detected Normal NOT DETECTED [facility] Comment on above: Performed By: #### C MP #### [facility] [address] [place] [address] Dr. Charlotte Argueta Parainfluenza 1 Not detected Normal NOT DETECTED [facility] Comment on above: Performed By: #### C MP #### [facility] [address] [place] [address] Dr. Charlotte Argueta Parainfluenza 2 Not detected Normal NOT DETECTED [facility] Comment on above: Performed By: #### C MP #### [facility] [address] [place] [address] Dr. Charlotte Argueta Parainfluenza 3 Not detected Normal NOT DETECTED [facility] Comment on above: Performed By: #### C MP #### [facility] [address] [place] [address] Dr. Charlotte Argueta Parainfluenza 4 Not detected Normal NOT DETECTED [facility] Comment on above: Performed By: #### C MP #### [facility] [address] [place] [address] Dr. Charlotte Argueta Rhino/Enterovirus Not detected Normal NOT DETECTED [facility] Comment on above: Performed By: #### C MP #### [facility] [address] [place] [address] Dr. Charlotte Argueta RP2 Header 1 RESPIRATORY PANEL: VIRUSES Normal [facility] Comment on above: Performed By: #### C MP #### [facility] [address] [place] [address] Dr. Charlotte Argueta RP2 Header 2 RESPIRATORY PANEL: BACTERIA Normal [facility] Comment on above: Performed By: #### C MP #### [facility] [address] [place] [address] Dr. Charlotte Argueta RSV Not detected Normal NOT DETECTED [facility] Comment on above: Performed By: #### C MP #### [facility] [address] [address] [address] Charlotte Argueta SARS-CoV-2 (COVID-19) RNA DANNY+probe Ql (Unsp spec) Not detected Normal NOT DETECTED [facility] Comment on above: Performed By: #### C MP #### [facility] [address] [place] [address] Dr. Charlotte Argueta TROPONIN, HIGH SENSITIVITYon 10-04-2022 HSTROP 11.5 pg/mL Normal 4.0-51.3 [facility] Comment on above: Result Comment: CUT- OFF POINTS HAVE BEEN ESTABLISHED BASED ON THE FOURTH UNIVERSAL DEFINITIONS OF MYOCARDIAL INFARCTION. THE UPPER REFERENCE LIMIT (URL) OF TROPONIN, DEFINED THE 99TH PERCENTILE OF cTnI DISTRIBUTION IN A REFERENCE POPULATION, HAS BEEN CONFIRMED THE DECISION THRESHOLD FOR [place] DIAGNOSIS. Performed By: #### B LDCX1 #### [facility] [address] [place] [address] Dr. Charlotte Argueta XR CHEST 1 Von [...] GREGORIO MCFARLAND Date: 2022-10-04 09:10 Normal [facility] CBC AUTO DIFFon 08-07-2022 BASO # 0.0 103/ul Normal 0.0-0.1 [facility] Comment on above: Performed By: #### C MREP #### [facility] [address] [place] [address] Dr. Charlotte Argueta Basophils/100 WBC (Bld) 0.5 % Normal 0.2-2.0 [facility] Comment on above: Performed By: #### C MREP #### [facility] [address] [place] [address] Dr. Charlotte Argueta EO # 0.3 103/ul Normal 0.0-0.7 [facility] Comment on above: Performed By: #### C MREP #### [facility] [address] [place] [address] Dr. Charlotte Argueta Eosinophils/100 WBC (Bld) 8.1 % Critically high 0.9-7.0 [facility] Comment on above: Performed By: #### C MREP #### [facility] [address] [place] [address] Dr. Charlotte Argueta Erythrocyte distribution width (RBC) [Ratio] 14.0 % Normal 11.0-15.0 [facility] Comment on above: Performed By: #### C MREP #### [facility] [address] [place] [address] Dr. Charlotte Argueta Hematocrit (Bld) [Volume fraction] 28.1 % Critically low 36.0-48.0 [facility] Comment on above: Performed By: #### C MREP #### [facility] [address] [place] [address] Dr. Charlotte Argueta Hemoglobin (Bld) [Mass/Vol] 8.9 g/dL Critically low 12.0-16.0 [facility] Comment on above: Performed By: #### C MREP #### [facility] [address] [place] [address] Dr. Charlotte Argueta IG # 0.01 10e3/ul Normal 0.00-0.03 [facility] Comment on above: Performed By: #### C MREP #### [facility] [address] [place] [address] Dr. Charlotte Argueta IG % 0.3 % Normal 0.0-0.5 [facility] Comment on above: Performed By: #### C MREP #### [facility] [address] [place] [address] Dr. Charlotte Argueta LYMPH # 1.2 103/ul Normal 1.2-3.8 [facility] Comment on above: Performed By: #### C MREP #### [facility] [address] [place] [address] Dr. Charlotte Argueta Lymphocytes/100 WBC (Bld) 32.3 % Normal 20.5-60.0 [facility] Comment on above: Performed By: #### C MREP #### [facility] [address] [place] [address] Dr. Charlotte Argueta MANUAL DIFF REQ NO Normal [facility] Comment on above: Performed By: #### C MREP #### [facility] [address] [place] [address] Dr. Charlotte Argueta MCH (RBC) [Entitic mass] 28.8 pg Normal 26.7-34.0 [facility] Comment on above: Performed By: #### C MREP #### [facility] [address] [place] [address] Dr. Charlotte Argueta MCHC (RBC) [Mass/Vol] 31.7 g/dL Normal 29.9-35.2 [facility] Comment on above: Performed By: #### C MREP #### [facility] [address] [place] [address] Dr. Charlotte Argueta MCV (RBC) [Entitic vol] 90.9 fL Normal 81.0-99.0 [facility] Comment on above: Performed By: #### C MREP #### [facility] [address] [place] [address] Dr. Charlotte Argueta MONO # 0.7 103/ul Normal 0.3-0.8 [facility] Comment on above: Performed By: #### C MREP #### [facility] [address] [place] [address] Dr. Charlotte Argueta Monocytes/100 WBC (Bld) 17.8 % Critically high 1.7-12.0 [facility] Comment on above: Performed By: #### C MREP #### [facility] [address] [place] [address] Dr. Charlotte Argueta NEUT # 1.5 103/ul Normal 1.4-6.5 [facility] Comment on above: Performed By: #### C MREP #### [facility] [address] [place] [address] Dr. Charlotte Argueta Neutrophils/100 WBC (Bld) 41.0 % Critically low 43.0-75.0 [facility] Comment on above: Performed By: #### C MREP #### [facility] [address] [place] [address] Dr. Charlotte Argueta Platelet mean volume (Bld) [Entitic vol] 10.4 fL Normal 9.5-13.5 [facility] Comment on above: Performed By: #### C MREP #### [facility] [address] [place] [address] Dr. Charlotte Argueta PLT 326 103/ul Normal 150-450 [facility] Comment on above: Performed By: #### C MREP #### [facility] [address] [place] [address] Dr. Charlotte Argueta RBC 3.09 106/ul Critically low 4.20-5.40 [facility] Comment on above: Performed By: #### C MREP #### [facility] [address] [place] [address] Dr. Charlotte Argueta WBC 3.7 103/ul Critically low 4.0-11.0 [facility] Comment on above: Performed By: #### C MREP #### [facility] [address] [place] [address] Dr. Charlotte Argueta PROF 14(COMP METB)on 022 Albumin [Mass/Vol] 2.6 g/dL Critically low 3.4-5.0 [facility] Comment on above: Performed By: #### C MREP #### [facility] [address] [place] [address] Dr. Charlotte Argueta Albumin/Globulin [Mass ratio] 0.8 {ratio} Normal [facility] Comment on above: Performed By: #### C MREP #### [facility] [address] [place] [address] Dr. Charlotte Argueta ALP [Catalytic activity/Vol] 67 U/L Normal 46-116 [facility] Comment on above: Performed By: #### C MREP #### [facility] [address] [place] [address] Dr. Charlotte Argueta ALT [Catalytic activity/Vol] 15 U/L Normal 14-59 [facility] Comment on above: Performed By: #### C MREP #### [facility] [address] [place] [address] Dr. Charlotte Argueta Anion gap [Moles/Vol] 11.4 mmol/L Normal [facility] Comment on above: Performed By: #### C MREP #### [facility] [address] [place] [address] Dr. Charlotte Argueta AST [Catalytic activity/Vol] 28 U/L Normal 15-37 [facility] Comment on above: Performed By: #### C MREP #### [facility] [address] [place] [address] Dr. Charlotte Argueta Bilirubin [Mass/Vol] 0.1 mg/dL Critically low 0.2-1.0 [facility] Comment on above: Performed By: #### C MREP #### [facility] [address] [place] [address] Dr. Charlotte Argueta Calcium [Mass/Vol] 7.7 mg/dL Critically low 8.5-10.1 [facility] Comment on above: Performed By: #### C MREP #### [facility] [address] [place] [address] Dr. Charlotte Argueta Chloride [Moles/Vol] 99 mmol/L Normal 98-107 [facility] Comment on above: Performed By: #### C MREP #### [facility] [address] [place] [address] Dr. Charlotte Argueta CO2 [Moles/Vol] 29.2 mmol/L Normal 21.0-32.0 [facility] Comment on above: Performed By: #### C MREP #### [facility] [address] [place] [address] Dr. Charlotte Argueta Creatinine [Mass/Vol] 1.46 mg/dL Critically high 0.55-1.02 [facility] Comment on above: Performed By: #### C MREP #### [facility] [address] [address] [address] Charlotte Argueta EGFR-AF ANGUILLAN 42 mL/min/1.73m2 Critically low >=60 [facility] Comment on above: Performed By: #### C MREP #### [facility] [address] [place] [address] Dr. Charlotte Argueta EGFR-NON AF ANGUILLAN 35 mL/min/1.73m2 Critically low >=60 [facility] Comment on above: Performed By: #### C MREP #### [facility] [address] [place] [address] Dr. Charlotte Argueta Globulin (S) [Mass/Vol] 3.4 g/dL Normal [facility] Comment on above: Performed By: #### C MREP #### [facility] [address] [place] [address] Dr. Charlotte Argueta Glucose [Mass/Vol] 110 mg/dL Critically high 74-[address] [facility] Comment on above: Performed By: #### C MREP #### [facility] [address] [place] [address] Dr. Charlotte Argueta Potassium [Moles/Vol] 3.6 mmol/L Normal 3.5-5.1 [facility] Comment on above: Performed By: #### C MREP #### [facility] [address] [place] [address] Dr. Charlotte Argueta Protein [Mass/Vol] 6.0 g/dL Critically low 6.4-8.2 [facility] Comment on above: Performed By: #### C MREP #### [facility] [address] [place] [address] Dr. Charlotte Argueta Sodium [Moles/Vol] 136 mmol/L Normal 136-145 [facility] Comment on above: Performed By: #### C MREP #### [facility] [address] [place] [address] Dr. Charlotte Argueta Urea nitrogen [Mass/Vol] 34.0 mg/dL Critically high 7.0-18.0 [facility] Comment on above: Performed By: #### C MREP #### [facility] [address] [place] [address] Dr. Charlotte Argueta Urea nitrogen/Creatinine [Mass ratio] 23.3 mg/mg Normal [facility] Comment on above: Performed By: #### C MREP #### [facility] [address] [place] [address] Dr. Charlotte Argueta CBC AUTO DIFFon 08-06-2022 BASO # 0.0 103/ul Normal 0.0-0.1 [facility] Comment on above: Performed By: #### I NFLUAB #### [facility] [address] [place] [address] Dr. Charlotte Argueta Basophils/100 WBC (Bld) 0.5 % Normal 0.2-2.0 [facility] Comment on above: Performed By: #### I NFLUAB #### [facility] [address] [place] [address] Dr. Charlotte Argueta EO # 0.1 103/ul Normal 0.0-0.7 [facility] Comment on above: Performed By: #### I NFLUAB #### [facility] [address] [place] [address] Dr. Charlotte Argueta Eosinophils/100 WBC (Bld) 1.6 % Normal 0.9-7.0 [facility] Comment on above: Performed By: #### I NFLUAB #### [facility] [address] [place] [address] Dr. Charlotte Argueta Erythrocyte distribution width (RBC) [Ratio] 14.2 % Normal 11.0-15.0 [facility] Comment on above: Performed By: #### I NFLUAB #### [facility] [address] [place] [address] Dr. Charlotte Argueta Hematocrit (Bld) [Volume fraction] 26.3 % Critically low 36.0-48.0 [facility] Comment on above: Performed By: #### I NFLUAB #### [facility] [address] [address] [address] Charlotte Argueta Hemoglobin (Bld) [Mass/Vol] 8.6 g/dL Critically low 12.0-16.0 [facility] Comment on above: Performed By: #### I NFLUAB #### [facility] [address] [address] [address] Charlotte Argueta IG # 0.01 10e3/ul Normal 0.00-0.03 [facility] Comment on above: Performed By: #### I NFLUAB #### [facility] [address] [address] [address] Charlotte Argueta IG % 0.3 % Normal 0.0-0.5 [facility] Comment on above: Performed By: #### I NFLUAB #### [facility] [address] [address] [address] Charlotte Argueta LYMPH # 1.3 103/ul Normal 1.2-3.8 [facility] Comment on above: Performed By: #### I NFLUAB #### [facility] [address] [address] [address] Charlotte Argueta Lymphocytes/100 WBC (Bld) 34.9 % Normal 20.5-60.0 [facility] Comment on above: Performed By: #### I NFLUAB #### [facility] [address] [address] [address] Charlotte Argueta MANUAL DIFF REQ NO Normal [facility] Comment on above: Performed By: #### I NFLUAB #### [facility] [address] [address] [address] Charlotte Argueta MCH (RBC) [Entitic mass] 29.6 pg Normal 26.7-34.0 [facility] Comment on above: Performed By: #### I NFLUAB #### [facility] [address] [address] [address] Charlotte Argueta MCHC (RBC) [Mass/Vol] 32.7 g/dL Normal 29.9-35.2 [facility] Comment on above: Performed By: #### I NFLUAB #### [facility] [address] [place] [address] Dr. Charlotte Argueta MCV (RBC) [Entitic vol] 90.4 fL Normal 81.0-99.0 [facility] Comment on above: Performed By: #### I NFLUAB #### [facility] [address] [place] [address] Dr. Charlotte Argueta MONO # 0.7 103/ul Normal 0.3-0.8 [facility] Comment on above: Performed By: #### I NFLUAB #### [facility] [address] [place] [address] Dr. Charlotte Argueta Monocytes/100 WBC (Bld) 18.6 % Critically high 1.7-12.0 [facility] Comment on above: Performed By: #### I NFLUAB #### [facility] [address] [place] [address] Dr. Charlotte Argueta NEUT # 1.6 103/ul Normal 1.4-6.5 [facility] Comment on above: Performed By: #### I NFLUAB #### [facility] [address] [place] [address] Dr. Charlotte Argueta Neutrophils/100 WBC (Bld) 44.1 % Normal 43.0-75.0 [facility] Comment on above: Performed By: #### I NFLUAB #### [facility] [address] [place] [address] Dr. Charlotte Argueta Platelet mean volume (Bld) [Entitic vol] 10.6 fL Normal 9.5-13.5 [facility] Comment on above: Performed By: #### I NFLUAB #### [facility] [address] [place] [address] Dr. Charlotte Argueta PLT 322 103/ul Normal 150-450 [facility] Comment on above: Performed By: #### I NFLUAB #### [facility] [address] [address] [address] Charlotte Argueta RBC 2.91 106/ul Critically low 4.20-5.40 [facility] Comment on above: Performed By: #### I NFLUAB #### [facility] [address] [address] [address] Charlotte Argueta WBC 3.7 103/ul Critically low 4.0-11.0 [facility] Comment on above: Performed By: #### I NFLUAB #### [facility] [address] [place] [address] Dr. Charlotte Argueta OCC BLD IMMUNO SCREENon OCCULT BLOOD Negative Normal NEGATIVE [facility] Comment on above: Performed By: #### I NFLUAB #### [facility] [address] [place] [address] Dr. Charlotte Argueta PROF 14(COMP METB)on 022 Albumin [Mass/Vol] 2.5 g/dL Critically low 3.4-5.0 [facility] Comment on above: Performed By: #### B LDCX1 #### [facility] [address] [place] [address] Dr. Charlotte Argueta Albumin/Globulin [Mass ratio] 0.8 {ratio} [facility] Comment on above: Performed By: #### B LDCX1 #### [facility] [address] [place] [address] Dr. Charlotte Argueta ALP [Catalytic activity/Vol] 70 U/L Normal 46-116 [facility] Comment on above: Performed By: #### B LDCX1 #### [facility] [address] [place] [address] Dr. Charlotte Argueta ALT [Catalytic activity/Vol] 10 U/L Critically low 14-59 [facility] Comment on above: Performed By: #### B LDCX1 #### [facility] [address] [place] [address] Dr. Charlotte Argueta Anion gap [Moles/Vol] 8.5 mmol/L Normal [facility] Comment on above: Performed By: #### B LDCX1 #### [facility] [address] [address] [address] Charlotte Argueta AST [Catalytic activity/Vol] 22 U/L Normal 15-37 [facility] Comment on above: Performed By: #### B LDCX1 #### [facility] [address] [address] [address] Charlotte Argueta Bilirubin [Mass/Vol] 0.1 mg/dL Critically low 0.2-1.0 [facility] Comment on above: Performed By: #### B LDCX1 #### [facility] [address] [address] [address] Charlotte Argueta Calcium [Mass/Vol] 7.7 mg/dL Critically low 8.5-10.1 [facility] Comment on above: Performed By: #### B LDCX1 #### [facility] [address] [address] [address] Charlotte Argueta Chloride [Moles/Vol] 97 mmol/L Critically low 98-107 [facility] Comment on above: Performed By: #### B LDCX1 #### [facility] [address] [address] [address] Charlotte Argueta CO2 [Moles/Vol] 31.3 mmol/L Normal 21.0-32.0 [facility] Comment on above: Performed By: #### B LDCX1 #### [facility] [address] [address] [address] Charlotte Argueta Creatinine [Mass/Vol] 1.83 mg/dL Critically high 0.55-1.02 [facility] Comment on above: Performed By: #### B LDCX1 #### [facility] [address] [address] [address] Charlotte Argueta EGFR-AF ANGUILLAN 32 mL/min/1.73m2 Critically low >=60 [facility] Comment on above: Performed By: #### B LDCX1 #### [facility] [address] [address] [address] Charlotte Argueta EGFR-NON AF ANGUILLAN 27 mL/min/1.73m2 Critically low >=60 [facility] Comment on above: Performed By: #### B LDCX1 #### [facility] [address] [place] [address] Dr. Charlotte Argueta Globulin (S) [Mass/Vol] 3.3 g/dL Normal [facility] Comment on above: Performed By: #### B LDCX1 #### [facility] [address] [place] [address] Dr. Charlotte Argueta Glucose [Mass/Vol] 105 mg/dL Normal 74-106 [facility] Comment on above: Performed By: #### B LDCX1 #### [facility] [address] [place] [address] Dr. Charlotte Argueta Potassium [Moles/Vol] 3.8 mmol/L Normal 3.5-5.1 [facility] Comment on above: Performed By: #### B LDCX1 #### [facility] [address] [place] [address] Dr. Charlotte Argueta Protein [Mass/Vol] 5.8 g/dL Critically low 6.4-8.2 [facility] Comment on above: Performed By: #### B LDCX1 #### [facility] [address] [place] [address] Dr. Charlotte Argueta Sodium [Moles/Vol] 133 mmol/L Critically low 136-145 [facility] Comment on above: Performed By: #### B LDCX1 #### [facility] [address] [place] [address] Dr. Charlotte Argueta Urea nitrogen [Mass/Vol] 40.0 mg/dL Critically high 7.0-18.0 [facility] Comment on above: Performed By: #### B LDCX1 #### [facility] [address] [place] [address] Dr. Charlotte Argueta Urea nitrogen/Creatinine [Mass ratio] 21.9 mg/mg Normal [facility] Comment on above: Performed By: #### B LDCX1 #### [facility] [address] [place] [address] Dr. Charlotte Argueta CBC AUTO DIFFon 08-05-2022 BASO # 0.0 103/ul Normal 0.0-0.1 [facility] Comment on above: Performed By: #### T SH, FT3 #### [facility] [address] [place] [address] Dr. Charlotte Argueta Basophils/100 WBC (Bld) 0.3 % Normal 0.2-2.0 [facility] Comment on above: Performed By: #### T SH, FT3 #### [facility] [address] [place] [address] Dr. Charlotte Argueta EO # 0.1 103/ul Normal 0.0-0.7 [facility] Comment on above: Performed By: #### T SH, FT3 #### [facility] [address] [place] [address] Dr. Charlotte Argueta Eosinophils/100 WBC (Bld) 0.7 % Critically low 0.9-7.0 [facility] Comment on above: Performed By: #### T MARY, FT3 #### [facility] [address] [place] [address] Dr. Charlotte Argueta Erythrocyte distribution width (RBC) [Ratio] 14.1 % Normal 11.0-15.0 [facility] Comment on above: Performed By: #### T MARY, FT3 #### [facility] [address] [place] [address] Dr. Charlotte Argueta Hematocrit (Bld) [Volume fraction] 29.1 % Critically low 36.0-48.0 [facility] Comment on above: Performed By: #### T SH, FT3 #### [facility] [address] [place] [address] Dr. Charlotte Argueta Hemoglobin (Bld) [Mass/Vol] 9.4 g/dL Critically low 12.0-16.0 [facility] Comment on above: Performed By: #### T SH, FT3 #### [facility] [address] [place] [address] Dr. Charlotte Argueta IG # 0.04 10e3/ul Critically high 0.00-0.03 [facility] Comment on above: Performed By: #### T SH, FT3 #### [facility] [address] [place] [address] Dr. Charlotte Argueta IG % 0.6 % Critically high 0.0-0.5 [facility] Comment on above: Performed By: #### T SH, FT3 #### [facility] [address] [place] [address] Dr. Charlotte Argueta LYMPH # 0.8 103/ul Critically low 1.2-3.8 [facility] Comment on above: Performed By: #### T , FT3 #### [facility] [address] [place] [address] Dr. Charlotte Argueta Lymphocytes/100 WBC (Bld) 11.1 % Critically low 20.5-60.0 [facility] Comment on above: Performed By: #### T SH, FT3 #### [facility] [address] [place] [address] Dr. Charlotte Argueta MANUAL DIFF REQ NO Normal [facility] Comment on above: Performed By: #### T , FT3 #### [facility] [address] [place] [address] Dr. Charlotte Argueta MCH (RBC) [Entitic mass] 29.2 pg Normal 26.7-34.0 [facility] Comment on above: Performed By: #### T , FT3 #### [facility] [address] [place] [address] Dr. Charlotte Argueta MCHC (RBC) [Mass/Vol] 32.3 g/dL Normal 29.9-35.2 [facility] Comment on above: Performed By: #### T , FT3 #### [facility] [address] [place] [address] Dr. Charlotte Argueta MCV (RBC) [Entitic vol] 90.4 fL Normal 81.0-99.0 [facility] Comment on above: Performed By: #### T SH, FT3 #### [facility] [address] [place] [address] Dr. Charlotte Argueta MONO # 0.5 103/ul Normal 0.3-0.8 [facility] Comment on above: Performed By: #### T SH, FT3 #### [facility] [address] [address] [address] Charlotte Argueta Monocytes/100 WBC (Bld) 7.4 % Normal 1.7-12.0 [facility] Comment on above: Performed By: #### T SH, FT3 #### [facility] [address] [place] [address] Dr. Charlotte Argueta NEUT # 5.5 103/ul Normal 1.4-6.5 [facility] Comment on above: Performed By: #### T SH, FT3 #### [facility] [address] [place] [address] Dr. Charlotte Argueta Neutrophils/100 WBC (Bld) 79.9 % Critically high 43.0-75.0 [facility] Comment on above: Performed By: #### T SH, FT3 #### [facility] [address] [place] [address] Dr. Charlotte Argueta Platelet mean volume (Bld) [Entitic vol] 10.6 fL Normal 9.5-13.5 [facility] Comment on above: Performed By: #### T SH, FT3 #### [facility] [address] [place] [address] Dr. Charlotte Argueta PLT 388 103/ul Normal 150-450 [facility] Comment on above: Performed By: #### T SH, FT3 #### [facility] [address] [place] [address] Dr. Charlotte Argueta RBC 3.22 106/ul Critically low 4.20-5.40 [facility] Comment on above: Performed By: #### T SH, FT3 #### [facility] [address] [place] [address] Dr. Charlotte Argueta WBC 6.9 103/ul Normal 4.0-11.0 [facility] Comment on above: Performed By: #### T SH, FT3 #### [facility] [address] [place] [address] Dr. Charlotte Argueta IRON AND TIBCon 08-05-2022 % SATURATION 3.9 % Normal [facility] Comment on above: Performed By: #### B LDCX1 #### [facility] [address] [place] [address] Dr. Charlotte Argueta Iron [Mass/Vol] 10.0 ug/dL Critically low 50.0-170.0 [facility] Comment on above: Performed By: #### B LDCX1 #### [facility] [address] [place] [address] Dr. Charlotte Argueta TIBC DIRECT 255.0 ug/dL Normal 250.0-450.0 [facility] Comment on above: Performed By: #### B LDCX1 #### [facility] [address] [place] [address] Dr. Charlotte Argueta PROF 14(COMP METB)on 022 Albumin [Mass/Vol] 2.8 g/dL Critically low 3.4-5.0 [facility] Comment on above: Performed By: #### T MARY, FT3 #### [facility] Laboratory [address] [place] [address] Dr. Charlotte Argueta Albumin/Globulin [Mass ratio] 0.8 {ratio} Normal [facility] Comment on above: Performed By: #### T MARY, FT3 #### [facility] Laboratory [address] [place] [address] Dr. Charlotte Argueta ALP [Catalytic activity/Vol] 85 U/L Normal 46-116 [facility] Comment on above: Performed By: #### T MARY, FT3 #### [facility] Laboratory [address] [place] [address] Dr. Charlotte Argueta ALT [Catalytic activity/Vol] 11 U/L Critically low 14-59 [facility] Comment on above: Performed By: #### T MARY, FT3 #### [facility] Laboratory [address] [place] [address] Dr. Charlotte Argueta Anion gap [Moles/Vol] 10.6 mmol/L Normal [facility] Comment on above: Performed By: #### T MARY, FT3 #### [facility] Laboratory [address] [place] [address] Dr. Charlotte Argueta AST [Catalytic activity/Vol] 23 U/L Normal 15-37 [facility] Comment on above: Performed By: #### T SH, FT3 #### [facility] Laboratory [address] [place] [address] Dr. Charlotte Argueta Bilirubin [Mass/Vol] 0.1 mg/dL Critically low 0.2-1.0 [facility] Comment on above: Performed By: #### T SH, FT3 #### [facility] Laboratory [address] [place] [address] Dr. Charlotte Argueta Calcium [Mass/Vol] 8.3 mg/dL Critically low 8.5-10.1 [facility] Comment on above: Performed By: #### T SH, FT3 #### [facility] Laboratory [address] [place] [address] Dr. Charlotte Argueat Chloride [Moles/Vol] 101 mmol/L Normal 98-107 [facility] Comment on above: Performed By: #### T SH, FT3 #### [facility] Laboratory [address] [place] [address] Dr. Charlotte Argueta CO2 [Moles/Vol] 28.4 mmol/L Normal 21.0-32.0 [facility] Comment on above: Performed By: #### T SH, FT3 #### [facility] Laboratory [address] [place] [address] Dr. Charlotte Argueta Creatinine [Mass/Vol] 1.65 mg/dL Critically high 0.55-1.02 [facility] Comment on above: Performed By: #### T SH, FT3 #### [facility] Laboratory [address] [place] [address] Dr. Charlotte Agrueta EGFR-AF ANGUILLAN 36 mL/min/1.73m2 Critically low >=60 The [facility] Comment on above: Performed By: #### T SH, FT3 #### [facility] Laboratory [address] [place] [address] Dr. Charlotte Argueta EGFR-NON AF ANGUILLAN 30 mL/min/1.73m2 Critically low >=60 The [facility] Comment on above: Performed By: #### T SH, FT3 #### [facility] Laboratory [address] [place] [address] Dr. Charlotte Argueta Globulin (S) [Mass/Vol] 3.7 g/dL Normal [facility] Comment on above: Performed By: #### T SH, FT3 #### [facility] Laboratory [address] [place] [address] Dr. Charlotte Argueta Glucose [Mass/Vol] 99 mg/dL Normal 74-106 [facility] Comment on above: Performed By: #### T SH, FT3 #### [facility] Laboratory [address] [place] [address] Dr. Charlotte Argueta Potassium [Moles/Vol] 4.0 mmol/L Normal 3.5-5.1 The [facility] Comment on above: Performed By: #### T SH, FT3 #### [facility] Laboratory [address] [place] [address] Dr. Charlotte Argueta Protein [Mass/Vol] 6.5 g/dL Normal 6.4-8.2 [facility] Comment on above: Performed By: #### T SH, FT3 #### [facility] Laboratory [address] [place] [address] Dr. Charlotte Argueta Sodium [Moles/Vol] 136 mmol/L Normal 136-145 [facility] Comment on above: Performed By: #### T SH, FT3 #### [facility] Laboratory [address] [place] [address] Dr. Charlotte Argueta Urea nitrogen [Mass/Vol] 39.0 mg/dL Critically high 7.0-18.0 [facility] Comment on above: Performed By: #### T SH, FT3 #### [facility] Laboratory [address] [place] [address] Dr. Charlotte Argueta Urea nitrogen/Creatinine [Mass ratio] 23.6 mg/mg Normal The [facility] Comment on above: Performed By: #### T SH, FT3 #### [facility] Laboratory [address] [place] [address] Dr. Charlotte Argueta RESPIRATORY PANEL PLUSon Adenovirus Not detected Normal NOT DETECTED The [facility] Comment on above: Performed By: #### C MP #### [facility] Laboratory [address] [place] [address] Dr. Charlotte Diamond Parapertusis Not detected Normal NOT DETECTED The [facility] Comment on above: Performed By: #### C MP #### [facility] Laboratory [address] [address] [address] Charlotte Diamond Pertussis Not detected Normal NOT DETECTED [facility] Comment on above: Performed By: #### C MP #### [facility] Laboratory [address] [address] [address] Charlotte Argueta Chlamydia Pneumoniae Not detected Normal NOT DETECTED The [facility] Comment on above: Performed By: #### C MP #### [facility] Laboratory [address] [place] [address] Dr. Charlotte Argueta Coronavirus 229E Not detected Normal NOT DETECTED The [facility] Comment on above: Performed By: #### C MP #### [facility] Laboratory [address] [place] [address] Dr. Charlotte Argueta Coronavirus HKU1 Not detected Normal NOT DETECTED The [facility] Comment on above: Performed By: #### C MP #### [facility] Laboratory [address] [place] [address] Dr. Charlotte Argueta Coronavirus NL63 Not detected Normal NOT DETECTED The [facility] Comment on above: Performed By: #### C MP #### [facility] Laboratory [address] [place] [address] Dr. Charlotte Argueta Coronavirus OC43 Not detected Normal NOT DETECTED The [facility] Comment on above: Performed By: #### C MP #### [facility] Laboratory [address] [place] [address] Dr. Charlotte Argueta Influenza A H1 2009 Detected Abnormal NOT DETECTED The [facility] Comment on above: Performed By: #### C MP #### [facility] Laboratory [address] [place] [address] Dr. Charlotte Argueta Influenza A H3 Not detected Normal NOT DETECTED [facility] Comment on above: Performed By: #### C MP #### [facility] Laboratory [address] [place] [address] Dr. Charlotte Argueta Influenza B Not detected Normal NOT DETECTED The [facility] Comment on above: Performed By: #### C MP #### [facility] Laboratory [address] [address] [address] Charlotte Argueta Metapneumovirus Not detected Normal NOT DETECTED The [facility] Comment on above: Performed By: #### C MP #### [facility] Laboratory [address] [place] [address] Dr. Charlotte Argueta Mycoplas. Pneumoniae Not detected Normal NOT DETECTED The [facility] Comment on above: Performed By: #### C MP #### [facility] [address] [address] [address] Charlotte Argueta Parainfluenza 1 Not detected Normal NOT DETECTED The [facility] Comment on above: Performed By: #### C MP #### [facility] Laboratory [address] [place] [address] Dr. Charlotte Argueta Parainfluenza 2 Not detected Normal NOT DETECTED [facility] Comment on above: Performed By: #### C MP #### [facility] [address] [place] [address] Dr. Charlotte Argueta Parainfluenza 3 Not detected Normal NOT DETECTED [facility] Comment on above: Performed By: #### C MP #### [facility] [address] [place] [address] Dr. Charlotte Argueta Parainfluenza 4 Not detected Normal NOT DETECTED [facility] Comment on above: Performed By: #### C MP #### [facility] [address] [place] [address] Dr. Charlotte Argueta Rhino/Enterovirus Not detected Normal NOT DETECTED The [facility] Comment on above: Performed By: #### C MP #### [facility] Laboratory [address] [address] [address] Charlotte GONCALVES Header 1 RESPIRATORY PANEL: VIRUSES Normal The [facility] Comment on above: Performed By: #### C MP #### [facility] Laboratory [address] [place] [address] Dr. Charlotte GONCALVES Header 2 RESPIRATORY PANEL: BACTERIA Normal The [facility] Comment on above: Performed By: #### C MP #### [facility] Laboratory [address] [place] [address] Dr. Charlotte Argueta RSV Not detected Normal NOT DETECTED The [facility] Comment on above: Performed By: #### C MP #### [facility] [address] [place] [address] Dr. Charlotte Argueta SARS-CoV-2 (COVID-19) RNA DANNY+probe Ql (Unsp spec) Not detected Normal NOT DETECTED The [facility] Comment on above: Performed By: #### C MP #### [facility] Laboratory [address] [place] [address] Dr. Charlotte Argueta VIT B12 AND FOLATEon 022 Cobalamin (Vitamin B12) [Mass/Vol] 2298.0 pg/mL Critically high 193.0-986.0 [facility] Comment on above: Performed By: #### B LDCX1 #### [facility] Laboratory [address] [place] [address] Dr. Charlotte Argueta FOLATE 14.70 ng/mL Normal 8.60-58.90 [facility] Comment on above: Performed By: #### B LDCX1 #### [facility] Laboratory [address] [place] [address] Dr. Charlotte Argueta XR CHEST 1 Von [...] NAHUM LOCKE Date: 2022-08-05 10:46 Normal The [facility] BNPon 08-04-2022 Natriuretic peptide B (Bld) [Mass/Vol] 6043.0 pg/mL Critically high <=1,800.0 [facility] Comment on above: Performed By: #### L IVER #### [facility] Laboratory [address] [place] [address] Dr. Charlotte Argueta CBC W MANUAL DIFFon 08-04-20 22 ATYPICAL LYMPH # Normal [facility] Comment on above: Performed By: #### T SH, FT3 #### [facility] Laboratory [address] [place] [address] Dr. Charlotte Argueta ATYPICAL LYMPH % Normal [facility] Comment on above: Performed By: #### T SH, FT3 #### [facility] Laboratory [address] [place] [address] Dr. Charlotte Argueta BAND # 0.0 103/ul Normal 0.0-0.3 The [facility] Comment on above: Performed By: #### T SH, FT3 #### [facility] Laboratory [address] [place] [address] Dr. Charlotte Argueta BAND % 0 % Normal 0-5 [facility] Comment on above: Performed By: #### T , FT3 #### [facility] Laboratory [address] [place] [address] Dr. Charlotte Argueta BASOM # 0.04 103/ul Normal 0.00-0.10 The [facility] Comment on above: Performed By: #### T , FT3 #### [facility] Laboratory [address] [place] [address] Dr. Charlotte Argueta BASOM % 1.0 % Normal 0.2-2.0 The [facility] Comment on above: Performed By: #### T , FT3 #### [facility] Laboratory [address] [place] [address] Dr. Charlotte Argueta BLAST # Normal The [facility] Comment on above: Performed By: #### T SH, FT3 #### [facility] Laboratory [address] [place] [address] Dr. Charlotte Argueta BLAST % Normal The [facility] Comment on above: Performed By: #### T SH, FT3 #### [facility] Laboratory [address] [place] [address] Dr. Charlotte Argueta CORRECTED WBC Normal 4.0-11.0 [facility] Comment on above: Performed By: #### T SH, FT3 #### [facility] Laboratory [address] [address] [address] Charlotte Argueta EOS # 0.00 103/ul Normal 0.00-0.70 [facility] Comment on above: Performed By: #### T SH, FT3 #### [facility] Laboratory [address] [address] [address] Charlotte Argueta EOS% 0.0 % Critically low 0.9-7.0 [facility] Comment on above: Performed By: #### T SH, FT3 #### [facility] Laboratory [address] [address] [address] Charlotte Argueta HCT 29.9 % Critically low 36.0-48.0 [facility] Comment on above: Performed By: #### T SH, FT3 #### [facility] Laboratory [address] [address] [address] Charlotte Argueta HGB 9.6 g/dl Critically low 12.0-16.0 [facility] Comment on above: Performed By: #### T SH, FT3 #### [facility] [address] [address] [address] Charlotte Argueta LYMPHM # 0.14 103/ul Critically low 1.20-3.80 [facility] Comment on above: Performed By: #### T SH, FT3 #### [facility] [address] [address] [address] Charlotte Argueta LYMPHM% 3.0 % Critically low 20.5-60.0 [facility] Comment on above: Performed By: #### T SH, FT3 #### [facility] Laboratory [address] [address] [address] Charlotte Argueta MCH 29.5 pg Normal 26.7-34.0 [facility] Comment on above: Performed By: #### T SH, FT3 #### [facility] [address] [address] [address] Charlotte Argueta MCHC 32.1 g/dl Normal 29.9-35.2 [facility] Comment on above: Performed By: #### T , FT3 #### [facility] Laboratory [address] [place] [address] Dr. Charlotte Argueta MCV 92.0 fL Normal 81.0-99.0 [facility] Comment on above: Performed By: #### T , FT3 #### [facility] [address] [place] [address] Dr. Charlotte Argueta METAMYELOCYTE # Normal [facility] Comment on above: Performed By: #### T , FT3 #### [facility] Laboratory [address] [place] [address] Dr. Charlotte Argueta METAMYELOCYTE % Normal [facility] Comment on above: Performed By: #### T , FT3 #### [facility] Laboratory [address] [place] [address] Dr. Charlotte Argueta MONOM# 0.14 103/ul Critically low 0.30-0.80 [facility] Comment on above: Performed By: #### T , FT3 #### [facility] Laboratory [address] [place] [address] Dr. Charlotte Argueta MONOM% 3.0 % Normal 1.7-12.0 [facility] Comment on above: Performed By: #### T , FT3 #### [facility] [address] [place] [address] Dr. Charlotte Argueta MPV 10.5 fL Normal 9.5-13.5 [facility] Comment on above: Performed By: #### , FT3 #### [facility] [address] [place] [address] Dr. Charlotte Argueta MYELOCYTE # Normal [facility] Comment on above: Performed By: #### T , FT3 #### [facility] [address] [place] [address] Dr. Charlotte Argueta MYELOCYTE % Normal The [facility] Comment on above: Performed By: #### T , FT3 #### [facility] [address] [place] [address] Dr. Charlotte Argueta NRBC Normal The [facility] Comment on above: Performed By: #### T SH, FT3 #### [facility] [address] [address] [address] Charlotte Argueta PLT 364 103/ul Normal 150-450 [facility] Comment on above: Performed By: #### T SH, FT3 #### [facility] [address] [place], [place] [address] Dr. Charlotte Argueta RBC 3.25 106/ul Critically low 4.20-5.40 [facility] Comment on above: Performed By: #### T SH, FT3 #### [facility] [address] [address] [address] Charlotte Argueta RDW 14.0 % Normal 11.0-15.0 [facility] Comment on above: Performed By: #### T SH, FT3 #### [facility] [address] [address] [address] Charlotte Argueta SEG # 4.18 103/ul Normal 1.40-6.50 [facility] Comment on above: Performed By: #### T SH, FT3 #### [facility] Laboratory [address] [address] [address] Charlotte Argueta SEG % 93.0 % Critically high 43.0-75.0 [facility] Comment on above: Performed By: #### T SH, FT3 #### [facility] [address] [address] [address] Charlotte Argueta WBC 4.5 103/ul Normal 4.0-11.0 [facility] Comment on above: Performed By: #### T SH, FT3 #### [facility] [address] [address] [address] Charlotte Argueta ECHOCARDIO M/2D COMPLETEon 1 10-05-2021 ECHOCARDIO M/2D COMPLETE Patient: EMY CHEATHAM Exam Date: 08/04/2022 : 1945 Gender:F Ordering : DR NASREEN MARY . Admission #: [id number] Family : Order #: [id number] CLICK HERE TO VIEW EXAM ECHOCARDIOGRAM REPORT [...] Love M.D. on 08/09/2022 at 09:59 Normal [facility] FREE T3on 08-04-2022 FREE T3 0.63 pg/mlL Critically low 2.18-3.98 [facility] Comment on above: Performed By: #### I NFLUAB #### [facility] Laboratory [address] [place] [address] Dr. Charlotte Argueta PROF CHEM 8 (BAS METB)on Anion gap [Moles/Vol] 13.2 mmol/L Normal [facility] Comment on above: Performed By: #### L IVER #### [facility] Laboratory [address] [place] [address] Dr. Charlotte Argueta Calcium [Mass/Vol] 8.3 mg/dL Critically low 8.5-10.1 Th e [facility] Comment on above: Performed By: #### L IVER #### [facility] Laboratory [address] [place] [address] Dr. Charlotte Argueta Chloride [Moles/Vol] 103 mmol/L Normal 98-107 [facility] Comment on above: Performed By: #### L IVER #### [facility] Laboratory [address] [place] [address] Dr. Charlotte Argueta CO2 [Moles/Vol] 24.9 mmol/L Normal 21.0-32.0 [facility] Comment on above: Performed By: #### L IVER #### [facility] [address] [address] [address] Charlotte Argueta Creatinine [Mass/Vol] 1.66 mg/dL Critically high 0.55-1.02 [facility] Comment on above: Performed By: #### L IVER #### [facility] [address] [address] [address] Charlotte Argueta EGFR-AF ANGUILLAN 36 mL/min/1.73m2 Critically low >=60 [facility] Comment on above: Performed By: #### L IVER #### [facility] Laboratory [address] [place] [address] Dr. Charlotte Argueta EGFR-NON AF ANGUILLAN 30 mL/min/1.73m2 Critically low >=60 [facility] Comment on above: Performed By: #### L IVER #### [facility] [address] [address] [address] Charlotte Argueta Glucose [Mass/Vol] 158 mg/dL Critically high 74-[address] [facility] Comment on above: Performed By: #### L IVER #### [facility] Laboratory [address] [place] [address] Dr. Charlotte Argueta Potassium [Moles/Vol] 4.1 mmol/L Normal 3.5-5.1 [facility] Comment on above: Performed By: #### L IVER #### [facility] [address] [address] [address] Charlotte Argueta Sodium [Moles/Vol] 137 mmol/L Normal 136-145 [facility] Comment on above: Performed By: #### L IVER #### [facility] Laboratory [address] [address] [address] Charlotte Argueta Urea nitrogen [Mass/Vol] 36.0 mg/dL Critically high 7.0-18.0 [facility] Comment on above: Performed By: #### L IVER #### [facility] [address] [place] [address] Dr. Charlotte Argueta Urea nitrogen/Creatinine [Mass ratio] 21.7 mg/mg Normal [facility] Comment on above: Performed By: #### L IVER #### [facility] Laboratory [address] [place] [address] Dr. Charlotte Argueta TSHon 08-04-2022 TSH 1.051 uIU/mL Normal 0.358-3.740 [facility] Comment on above: Performed By: #### I NFLUAB #### [facility] [address] [place] [address] Dr. Charlotte Argueta BNPon 08-03-2022 Natriuretic peptide B (Bld) [Mass/Vol] 2399.0 pg/mL Critically high <=1,800.0 [facility] Comment on above: Performed By: #### I NFLUAB #### [facility] [address] [place] [address] Dr. Charlotte Argueta CBC AUTO DIFFon 08-03-2022 BASO # 0.1 103/ul Normal 0.0-0.1 [facility] Comment on above: Performed By: #### B LDCX1 #### [facility] [address] [place] [address] Dr. Charlotte Argueta Basophils/100 WBC (Bld) 0.7 % Normal 0.2-2.0 [facility] Comment on above: Performed By: #### B LDCX1 #### [facility] [address] [place] [address] Dr. Charlotte Argueta EO # 0.2 103/ul Normal 0.0-0.7 [facility] Comment on above: Performed By: #### B LDCX1 #### [facility] [address] [place] [address] Dr. Charlotte Argueta Eosinophils/100 WBC (Bld) 3.1 % Normal 0.9-7.0 [facility] Comment on above: Performed By: #### B LDCX1 #### [facility] [address] [place] [address] Dr. Charlotte Argueta Erythrocyte distribution width (RBC) [Ratio] 14.2 % Normal 11.0-15.0 [facility] Comment on above: Performed By: #### B LDCX1 #### [facility] [address] [place] [address] Dr. Charlotte Argueta Hematocrit (Bld) [Volume fraction] 30.9 % Critically low 36.0-48.0 [facility] Comment on above: Performed By: #### B LDCX1 #### [facility] [address] [place] [address] Dr. Charlotte Argueta Hemoglobin (Bld) [Mass/Vol] 9.9 g/dL Critically low 12.0-16.0 [facility] Comment on above: Performed By: #### B LDCX1 #### [facility] [address] [place] [address] Dr. Charlotte Argueta IG # 0.04 10e3/ul Critically high 0.00-0.03 [facility] Comment on above: Performed By: #### B LDCX1 #### [facility] [address] [place] [address] Dr. Charlotte Argueta IG % 0.5 % Normal 0.0-0.5 [facility] Comment on above: Performed By: #### B LDCX1 #### [facility] [address] [place] [address] Dr. Charlotte Argueta LYMPH # 1.0 103/ul Critically low 1.2-3.8 [facility] Comment on above: Performed By: #### B [id number] #### [facility] [facility] [address] [place] [address] Dr. Charlotte Argueta Lymphocytes/100 WBC (Bld) 13.5 % Critically low 20.5-60.0 [facility] Comment on above: Performed By: #### B [id number] #### [facility] [address] [place] [address] Dr. Charlotte Argueta MANUAL DIFF REQ NO Normal [facility] Comment on above: Performed By: #### B [id number] #### [facility] [address] [place] [address] Dr. Charlotte Argueta MCH (RBC) [Entitic mass] 29.6 pg Normal 26.7-34.0 [facility] Comment on above: Performed By: #### B [id number] #### [facility] [address] [place] [address] Dr. Charlotte Argueta MCHC (RBC) [Mass/Vol] 32.0 g/dL Normal 29.9-35.2 [facility] Comment on above: Performed By: #### B [id number] #### [facility] [address] [place] [address] Dr. Charlotte Argueta MCV (RBC) [Entitic vol] 92.2 fL Normal 81.0-99.0 [facility] Comment on above: Performed By: #### B [id number] #### [facility] [address] [place] [address] Dr. Charlotte Argueta MONO # 0.7 103/ul Normal 0.3-0.8 [facility] Comment on above: Performed By: #### B [id number] #### [facility] [address] [place] [address] Dr. Charlotte Argueta Monocytes/100 WBC (Bld) 10.0 % Normal 1.7-12.0 [facility] Comment on above: Performed By: #### B [id number] #### [facility] [address] [place] [address] Dr. Charlotte Argueta NEUT # 5.3 103/ul Normal 1.4-6.5 [facility] Comment on above: Performed By: #### B [id number] #### [facility] [address] [place] [address] Dr. Charlotte Argueta Neutrophils/100 WBC (Bld) 72.2 % Normal 43.0-75.0 [facility] Comment on above: Performed By: #### B [id number] #### [facility] [address] [place] [address] Dr. Charlotte Argueta Platelet mean volume (Bld) [Entitic vol] 10.3 fL Normal 9.5-13.5 [facility] Comment on above: Performed By: #### B [id number] #### [facility] [address] [place] [address] Dr. Charlotte Argueta PLT 385 103/ul Normal 150-450 [facility] Comment on above: Performed By: #### B [id number] #### [facility] [address] [place] [address] Dr. Charlotte Argueta RBC 3.35 106/ul Critically low 4.20-5.40 [facility] Comment on above: Performed By: #### B [id number] #### [facility] [address] [place] [address] Dr. Charlotte Argueta WBC 7.3 103/ul Normal 4.0-11.0 [facility] Comment on above: Performed By: #### B [id number] #### [facility] [address] [place] [address] Dr. Charlotte Argueta CULTURE BLOODon 08-03-2022 Microscopic examination of blood, culture Culture Observations: NO GROWTH AT 5 DAYS. Normal [facility] Comment on above: Performed By: #### T MARY, FT3 #### [facility] [address] [place] [address] Dr. Charlotte Argueta Microscopic examination of blood, culture Culture Observations: NO GROWTH AT 5 DAYS. Normal [facility] Comment on above: Performed By: #### B [id number] #### [facility] [address] [place] [address] Dr. Charlotte Argueta CULTURE URINEon 08-03-2022 CULTURE URINE Culture Observations : NO GROWTH. Normal [facility] Comment on above: Performed By: #### T MARY, FT3 #### [facility] [address] [place] [address] Dr. Charlotte Argueta [facility]on SARS-CoV-2 (COVID-19) RNA DANNY+probe Ql (Unsp spec) Not detected Normal NOT DETECTED [facility] Comment on above: Result Comment: When diagnostic [...] for this test is supported by the Tool Rental Technician of Health and Human Service's declaration that [...] used). Performed By: #### B LDCX1 #### [facility] [address] [place] [address] Dr. Charlotte Argueta ER URINE PROFILEon 2 Bilirubin Ql (U) Negative Normal NEGATIVE [facility] Comment on above: Performed By: #### T SH, FT3 #### [facility] [address] [place] [address] Dr. Charlotte Argueta Clarity (U) CLEAR Normal CLEAR [facility] Comment on above: Performed By: #### T SH, FT3 #### [facility] [address] [place] [address] Dr. Charlotte Argueta Color (U) LT. YELLOW Normal YELLOW [facility] Comment on above: Performed By: #### T SH, FT3 #### [facility] [address] [place] [address] Dr. Charlotte Argueta ERUAHD A micrscopic examination will be performed if indicated. Normal [facility] Comment on above: Performed By: #### T SH, FT3 #### [facility] [address] [place] [address] Dr. Charlotte Argueta Glucose Ql (U) Negative Normal NEGATIVE [facility] Comment on above: Performed By: #### T SH, FT3 #### [facility] [address] [place] [address] Dr. Charlotte Argueta Hemoglobin Ql (U) TRACE-INTACT Abnormal NEGATIVE [facility] Comment on above: Performed By: #### T SH, FT3 #### [facility] [address] [place] [address] Dr. Charlotte Argueta Ketones Ql (U) Negative Normal NEGATIVE [facility] Comment on above: Performed By: #### T SH, FT3 #### [facility] [address] [place] [address] Dr. Charlotte Argueta LEUKOCYTES LARGE Abnormal NEGATIVE [facility] Comment on above: Performed By: #### T SH, FT3 #### [facility] [address] [place] [address] Dr. Charlotte Argueta Nitrite Ql (U) Negative Normal NEGATIVE [facility] Comment on above: Performed By: #### T SH, FT3 #### [facility] [address] [place] [address] Dr. Charlotte Argueta pH (U) 5.0 [pH] Normal 5-9 [facility] Comment on above: Performed By: #### T SH, FT3 #### [facility] [address] [place] [address] Dr. Charlotte Argueta SPEC GRAVITY 1.025 Normal 1.005-<=1.025 [facility] Comment on above: Performed By: #### T SH, FT3 #### [facility] [address] [place] [address] Dr. Charlotte Argueta UA PROTEIN Negative Normal NEGATIVE/ TRACE [facility] Comment on above: Performed By: #### T SH, FT3 #### [facility] [address] [place] [address] Dr. Charlotte Argueta UR MICRO IND INDICATED Normal [facility] Comment on above: Performed By: #### T SH, FT3 #### [facility] [address] [place] [address] Dr. Charlotte Argueta Urobilinogen Qn (U) 0.2 {Kathia'U}/dL Normal 0.2 - 1. 0 [facility] Comment on above: Performed By: #### T SH, FT3 #### [facility] [address] [place] [address] Dr. Charlotte Argueta FREE T4on 08-03-2022 Free T4 [Mass/Vol] 0.99 ng/dL Normal 0.76-1.46 [facility] Comment on above: Performed By: #### T , FT3 #### [facility] [address] [place] [address] Dr. Charlotte Argueta INFLUENZA A AND B AGon 08-03 INFLUANEGH SEE BELOW Normal [facility] Comment on above: Result Comment: Nega tive for Flu A protein angiten. Infection due to Flu A cannot be ruled out. Flu A angiten in the sample may be below the detection limit of the test. Performed By: #### I NFLUAB #### [facility] [address] [place] [address] Dr. Charlotte Argueta INFLUBNEG SEE BELOW Normal [facility] Comment on above: Result Comment: Nega tive for Flu B protein antigen. Infection due to Flu B cannot be ruled out. Flu B antigen in the sample may be below the detection limit of the test. Performed By: #### I NFLUAB #### [facility] [address] [place] [address] Dr. Chalrotte Argueta INFLUENZA A AG Negative Normal NEGATIVE SEE COMMENT [facility] Comment on above: Performed By: #### I NFLUAB #### [facility] [address] [place] [address] Dr. Charlotte Argueta INFLUENZA B AG Negative Normal NEGATIVE SEE COMMENT [facility] Comment on above: Performed By: #### I NFLUAB #### [facility] [address] [place] [address] Dr. Charlotte Argueta INTERNAL CONTROLS Within Normal Limits Normal Wi thin Normal Limits [facility] Comment on above: Performed By: #### I NFLUAB #### [facility] [address] [place] [address] Dr. Charlotte Argueta LIPASEon 08-03-2022 Lipase [Catalytic activity/Vol] 28.0 U/L Critically low 73.0-393.0 [facility] Comment on above: Performed By: #### L IVER #### [facility] [address] [place] [address] Dr. Charlotte Argueta PH VENOUS BLOODon 08-03-2022 PCO2 VENOUS 33.0 mmHg Critically low 40.0-52.0 [facility] Comment on above: Performed By: #### L IVER #### [facility] [address] [address] [address] Charlotte Argueta pH VENOUS 7.417 Normal 7.330-7.430 [facility] Comment on above: Performed By: #### L IVER #### [facility] [address] [address] [address] Charlotte Argueta PROF 14(COMP METB)on 022 Albumin [Mass/Vol] 3.0 g/dL Critically low 3.4-5.0 [facility] Comment on above: Performed By: #### L IVER #### [facility] [address] [place] [address] Dr. Charlotte Argueta Albumin/Globulin [Mass ratio] 0.8 {ratio} Normal [facility] Comment on above: Performed By: #### L IVER #### [facility] [address] [address] [address] Charlotte Argueta ALP [Catalytic activity/Vol] 110 U/L Normal 46-116 [facility] Comment on above: Performed By: #### L IVER #### [facility] [address] [place] [address] Dr. Charlotte Argueta ALT [Catalytic activity/Vol] 11 U/L Critically low 14-59 [facility] Comment on above: Performed By: #### L IVER #### [facility] [address] [address] [address] Charlotte Argueta Anion gap [Moles/Vol] 13.2 mmol/L Normal [facility] Comment on above: Performed By: #### L IVER #### [facility] [address] [address] [address] Charlotte Argueta AST [Catalytic activity/Vol] 19 U/L Normal 15-37 [facility] Comment on above: Performed By: #### L IVER #### [facility] [address] [address] [address] Charlotte Argueta Bilirubin [Mass/Vol] 0.1 mg/dL Critically low 0.2-1.0 [facility] Comment on above: Performed By: #### L IVER #### [facility] [address] [address] [address] Charlotte Argueta Calcium [Mass/Vol] 8.5 mg/dL Normal 8.5-10.1 [facility] Comment on above: Performed By: #### L IVER #### [facility] [address] [address] [address] Charlotte Argueta Chloride [Moles/Vol] 104 mmol/L Normal 98-107 [facility] Comment on above: Performed By: #### L IVER #### [facility] [address] [address] [address] Charlotte Argueta CO2 [Moles/Vol] 25.0 mmol/L Normal 21.0-32.0 [facility] Comment on above: Performed By: #### L IVER #### [facility] [address] [address] [address] Charlotte Argueta Creatinine [Mass/Vol] 1.50 mg/dL Critically high 0.55-1.02 [facility] Comment on above: Performed By: #### L IVER #### [facility] [address] [place] [address] Dr. Charlotte Argueta EGFR-AF ANGUILLAN 41 mL/min/1.73m2 Critically low >=60 [facility] Comment on above: Performed By: #### L IVER #### [facility] [address] [address] [address] Charlotte Argueta EGFR-NON AF ANGUILLAN 34 mL/min/1.73m2 Critically low >=60 [facility] Comment on above: Performed By: #### L IVER #### [facility] [address] [address] [address] Charlotte Argueta Globulin (S) [Mass/Vol] 3.8 g/dL Normal [facility] Comment on above: Performed By: #### L IVER #### [facility] [address] [address] [address] Charlotte Argueta Glucose [Mass/Vol] 140 mg/dL Critically high 74-[address] [facility] Comment on above: Performed By: #### L IVER #### [facility] [address] [address] [address] Charlotte Argueta Potassium [Moles/Vol] 4.2 mmol/L Normal 3.5-5.1 [facility] Comment on above: Performed By: #### L IVER #### [facility] [address] [address] [address] Charlotte Argueta Protein [Mass/Vol] 6.8 g/dL Normal 6.4-8.2 [facility] Comment on above: Performed By: #### L IVER #### [facility] [address] [address] [address] Charlotte Argueta Sodium [Moles/Vol] 138 mmol/L Normal 136-145 [facility] Comment on above: Performed By: #### L IVER #### [facility] [address] [address] [address] Charlotte Argueta Urea nitrogen [Mass/Vol] 35.0 mg/dL Critically high 7.0-18.0 [facility] Comment on above: Performed By: #### L IVER #### [facility] [address] [place] [address] Dr. Charlotte Argueta Urea nitrogen/Creatinine [Mass ratio] 23.3 mg/mg Normal [facility] Comment on above: Performed By: #### L IVER #### [facility] [address] [place] [address] Dr. Charlotte Argueta PROTIMEon 08-03-2022 INR Coag (PPP) [Relative time] 0.94 {INR} Normal [facility] Comment on above: Performed By: #### C MREP #### [facility] [address] [place] [address] Dr. Charlotte Argueta INR GUIDELINES SEE BELOW Normal [facility] Comment on above: Result Comment: CORI RED INR: 2.0 - 3.0 CONDITIONS NOT LISTED BELOW 2.5 - 3.5 FOR PROSTHETIC HEART VALVE REPLACEMENT 2.5 - 3.5 RECURRENT THROMBOSIS Performed By: #### C MREP #### [facility] [address] [place] [address] Dr. Charlotte Argueta PT Coag (PPP) [Time] 10.2 s Normal 9.0-11.6 [facility] Comment on above: Performed By: #### C MREP #### [facility] [address] [place] [address] Dr. Charlotte Argueta PTTon 08-03-2022 aPTT Coag (Bld) [Time] 30.8 s Normal 22.3-36.2 [facility] Comment on above: Performed By: #### C MREP #### [facility] [address] [place] [address] Dr. Charlotte Argueta TROPONIN, HIGH SENSITIVITYon 08-03-2022 HSTROP 12.2 pg/mL Normal 4.0-51.3 [facility] Comment on above: Result Comment: CUT- OFF POINTS HAVE BEEN ESTABLISHED BASED ON THE FOURTH UNIVERSAL DEFINITIONS OF MYOCARDIAL INFARCTION. THE UPPER REFERENCE LIMIT (URL) OF TROPONIN, DEFINED THE 99TH PERCENTILE OF cTnI DISTRIBUTION IN A REFERENCE POPULATION, HAS BEEN CONFIRMED THE DECISION THRESHOLD FOR [place] DIAGNOSIS. Performed By: #### I NFLUAB #### [facility] [address] [place] [address] Dr. Charlotte Argueta TSHon 08-03-2022 TSH 2.222 uIU/mL Normal 0.358-3.740 [facility] Comment on above: Performed By: #### I NFLUAB #### [facility] [address] [place] [address] Dr. Charlotte Argueta URINE MICROSCOPIC ONLYon BACTERIA NONE SEEN Normal NONE SEEN [facility] Comment on above: Performed By: #### T SH, FT3 #### [facility] [address] [place] [address] Dr. Charlotte Argueta Bacteria identified Cx Nom (U) INDICATED Normal [facility] Comment on above: Performed By: #### T SH, FT3 #### [facility] [address] [place] [address] Dr. Charlotte Argueta CAST NONE SEEN Normal NONE SEEN [facility] Comment on above: Performed By: #### T SH, FT3 #### [facility] [address] [place] [address] Dr. Charlotte Argueta Crystals LM Nom (Urine sed) NONE SEEN Normal NONE SEEN [facility] Comment on above: Performed By: #### T SH, FT3 #### [facility] [address] [place] [address] Dr. Charlotte Argueta Epithelial cells LM Ql (Urine sed) RARE Normal NONE SEEN /RARE [facility] Comment on above: Performed By: #### T SH, FT3 #### [facility] [address] [place] [address] Dr. Charlotte Argueta MUCOUS NONE SEEN Normal NONE SEEN [facility] Comment on above: Performed By: #### T SH, FT3 #### [facility] [address] [place] [address] Dr. Charlotte Argueta RBC 2-5 Abnormal 0-2 [facility] Comment on above: Performed By: #### T SH, FT3 #### [facility] [address] [place] [address] Dr. Charlotte Argueta WBC 20-50 Abnormal NONE SEEN [facility] Comment on above: Performed By: #### T SH, FT3 #### [facility] [address] [place] [address] Dr. Charlotte Argueta XR CHEST 1 Von [...] CHARLENE FABIAN Date: 2022-08-03 18:38 Normal [facility] XR HIP RT 2 3V W PELVISon [...] KERMIT THAPA Date: 2022-08-03 18:47 Normal [facility] CBC AUTO DIFFon 01-25-2022 BASO # 0.1 103/ul Normal 0.0-0.1 [facility] Comment on above: Performed By: #### T SH, FT3 #### [facility] [address] [place] [address] Dr. Charlotte Argueta Basophils/100 WBC (Bld) 0.7 % Normal 0.2-2.0 [facility] Comment on above: Performed By: #### T SH, FT3 #### [facility] [address] [address] [address] Charlotte Argueta EO # 0.6 103/ul Normal 0.0-0.7 [facility] Comment on above: Performed By: #### T , FT3 #### [facility] [address] [address] [address] Charlotte Argueta Eosinophils/100 WBC (Bld) 7.2 % Critically high 0.9-7.0 [facility] Comment on above: Performed By: #### T , FT3 #### [facility] [address] [address] [address] Charlotte Argueta Erythrocyte distribution width (RBC) [Ratio] 14.5 % Normal 11.0-15.0 [facility] Comment on above: Performed By: #### T SH, FT3 #### [facility] [address] [address] [address] Charlotte Argueta Hematocrit (Bld) [Volume fraction] 32.9 % Critically low 36.0-48.0 [facility] Comment on above: Performed By: #### T SH, FT3 #### [facility] [address] [place] [address] Dr. Charlotte Argueta Hemoglobin (Bld) [Mass/Vol] 10.1 g/dL Critically low 12.0-16.0 [facility] Comment on above: Performed By: #### T SH, FT3 #### [facility] [address] [place] [address] Dr. Charlotte Argueta IG # 0.06 10e3/ul Critically high 0.00-0.03 [facility] Comment on above: Performed By: #### T SH, FT3 #### [facility] [address] [place] [address] Dr. Charlotte Argueta IG % 0.7 % Critically high 0.0-0.5 [facility] Comment on above: Performed By: #### T MARY, FT3 #### [facility] [address] [place] [address] Dr. Charlotte Argueta LYMPH # 2.5 103/ul Normal 1.2-3.8 [facility] Comment on above: Performed By: #### T SH, FT3 #### [facility] [address] [place] [address] Dr. Charlotte Argueta Lymphocytes/100 WBC (Bld) 30.4 % Normal 20.5-60.0 [facility] Comment on above: Performed By: #### T SH, FT3 #### [facility] [address] [place] [address] Dr. Charlotte Argueta MANUAL DIFF REQ NO Normal [facility] Comment on above: Performed By: #### T SH, FT3 #### [facility] [address] [place] [address] Dr. Charlotte Argueta MCH (RBC) [Entitic mass] 29.6 pg Normal 26.7-34.0 [facility] Comment on above: Performed By: #### T SH, FT3 #### [facility] [address] [place] [address] Dr. Charlotte Argueta MCHC (RBC) [Mass/Vol] 30.7 g/dL Normal 29.9-35.2 [facility] Comment on above: Performed By: #### T MARY, FT3 #### [facility] [address] [place] [address] Dr. Charlotte Argueta MCV (RBC) [Entitic vol] 96.5 fL Normal 81.0-99.0 [facility] Comment on above: Performed By: #### T MARY, FT3 #### [facility] [address] [place] [address] Dr. Charlotte Argueta MONO # 0.7 103/ul Normal 0.3-0.8 [facility] Comment on above: Performed By: #### T MARY, FT3 #### [facility] [address] [place] [address] Dr. Charlotte Argueta Monocytes/100 WBC (Bld) 8.9 % Normal 1.7-12.0 [facility] Comment on above: Performed By: #### T MARY, FT3 #### [facility] [address] [place] [address] Dr. Charlotte Argueta NEUT # 4.2 103/ul Normal 1.4-6.5 [facility] Comment on above: Performed By: #### Andi HERNANDEZ, FT3 #### [facility] [address] [place] [address] Dr. Charlotte Argueta Neutrophils/100 WBC (Bld) 52.1 % Normal 43.0-75.0 [facility] Comment on above: Performed By: #### Andi HERNANDEZ, FT3 #### [facility] [address] [place] [address] Dr. Charlotte Argueta Platelet mean volume (Bld) [Entitic vol] 10.2 fL Normal 9.5-13.5 [facility] Comment on above: Performed By: #### T MARY, FT3 #### [facility] [address] [place] [address] Dr. Charlotte Argueta PLT 450 103/ul Normal 150-450 [facility] Comment on above: Performed By: #### T MARY, FT3 #### [facility] [address] [address] [address] Charlotte Argueta RBC 3.41 106/ul Critically low 4.20-5.40 [facility] Comment on above: Performed By: #### T , FT3 #### [facility] [address] [place] [address] Dr. Charlotte Argueta WBC 8.1 103/ul Normal 4.0-11.0 [facility] Comment on above: Performed By: #### T , FT3 #### [facility] [address] [place] [address] Dr. Charlotte Argueta PROF CHEM 8 (BAS METB)on Anion gap [Moles/Vol] 14.4 mmol/L Normal [facility] Comment on above: Performed By: #### B MP #### [facility] [address] [place] [address] Dr. Charlotte Argueta Calcium [Mass/Vol] 8.8 mg/dL Normal 8.5-10.1 [facility] Comment on above: Performed By: #### B MP #### [facility] [address] [place] [address] Dr. Charlotte Argueta Chloride [Moles/Vol] 102 mmol/L Normal 98-107 [facility] Comment on above: Performed By: #### B MP #### [facility] [address] [place] [address] Dr. Charlotte Argueta CO2 [Moles/Vol] 25.7 mmol/L Normal 21.0-32.0 [facility] Comment on above: Performed By: #### B MP #### [facility] [address] [place] [address] Dr. Charlotte Argueta Creatinine [Mass/Vol] 1.59 mg/dL Critically high 0.55-1.02 [facility] Comment on above: Performed By: #### B MP #### [facility] [address] [place] [address] Dr. Charlotte Argueta EGFR-AF ANGUILLAN 38 mL/min/1.73m2 Critically low >=60 [facility] Comment on above: Performed By: #### B MP #### [facility] [address] [address] [address] Charlotte Argueta EGFR-NON AF ANGUILLAN 31 mL/min/1.73m2 Critically low >=60 [facility] Comment on above: Performed By: #### B MP #### [facility] [address] [address] [address] Charlotte Argueta Glucose [Mass/Vol] 88 mg/dL Normal 74-106 [facility] Comment on above: Performed By: #### B MP #### [facility] [address] [address] [address] Charlotte Argueta Potassium [Moles/Vol] 4.1 mmol/L Normal 3.5-5.1 [facility] Comment on above: Performed By: #### B MP #### [facility] [address] [address] [address] Charlotte Argueta Sodium [Moles/Vol] 138 mmol/L Normal 136-145 [facility] Comment on above: Performed By: #### B MP #### [facility] [address] [address] [address] Charlotte Argueta Urea nitrogen [Mass/Vol] 37.0 mg/dL Critically high 7.0-18.0 [facility] Comment on above: Performed By: #### B MP #### [facility] [address] [address] [address] Charlotte Argueta Urea nitrogen/Creatinine [Mass ratio] 23.3 mg/mg Normal [facility] Comment on above: Performed By: #### B MP #### [facility] [address] [address] [address] Charlotte Argueta VIT D 1 25 DIHYDROXYon 01-25 Calcitriol(1,25 di-OH Vit D) 47.8 pg/mL Normal 19.9-79.3 [facility] Comment on above: Result Comment: Ef fective February 06, 2022 Calcitriol(1,25 di-OH Vit D) reference interval will be changing to: pg/mL . 0 - 6 months: 44.3 - 212.9 7 months - 1 year: 40.3 - 112.4 >1 year: 24.8 - 81.5 Performed By: #### L IVER #### [facility] [address] [place] [address] Dr. Charlotte Argueta CBC AUTO DIFFon 01-24-2022 BASO # 0.0 103/ul Normal 0.0-0.1 [facility] Comment on above: Performed By: #### C MREP #### [facility] [address] [place] [address] Dr. Charlotte Argueta Basophils/100 WBC (Bld) 0.5 % Normal 0.2-2.0 [facility] Comment on above: Performed By: #### C MREP #### [facility] [address] [place] [address] Dr. Charlotte Argueta EO # 0.6 103/ul Normal 0.0-0.7 [facility] Comment on above: Performed By: #### C MREP #### [facility] [address] [place] [address] Dr. Charlotte Argueta Eosinophils/100 WBC (Bld) 8.4 % Critically high 0.9-7.0 [facility] Comment on above: Performed By: #### C MREP #### [facility] [address] [place] [address] Dr. Charlotte Argueta Erythrocyte distribution width (RBC) [Ratio] 14.3 % Normal 11.0-15.0 [facility] Comment on above: Performed By: #### C MREP #### [facility] [address] [place] [address] Dr. Charlotte Argueta Hematocrit (Bld) [Volume fraction] 30.8 % Critically low 36.0-48.0 [facility] Comment on above: Performed By: #### C MREP #### [facility] [address] [place] [address] Dr. Charlotte Argueta Hemoglobin (Bld) [Mass/Vol] 9.8 g/dL Critically low 12.0-16.0 [facility] Comment on above: Performed By: #### C MREP #### [facility] [address] [place] [address] Dr. Charlotte Argueta IG # 0.03 10e3/ul Normal 0.00-0.03 [facility] Comment on above: Performed By: #### C MREP #### [facility] [address] [place] [address] Dr. Charlotte Argueta IG % 0.5 % Normal 0.0-0.5 [facility] Comment on above: Performed By: #### C MREP #### [facility] [address] [place] [address] Dr. Charlotte Argueta LYMPH # 2.2 103/ul Normal 1.2-3.8 [facility] Comment on above: Performed By: #### C MREP #### [facility] [address] [place] [address] Dr. Charlotte Argueta Lymphocytes/100 WBC (Bld) 33.9 % Normal 20.5-60.0 [facility] Comment on above: Performed By: #### C MREP #### [facility] [address] [place] [address] Dr. Charlotte Argueta MANUAL DIFF REQ NO Normal [facility] Comment on above: Performed By: #### C MREP #### [facility] [address] [place] [address] Dr. Charlotte Argueta MCH (RBC) [Entitic mass] 30.4 pg Normal 26.7-34.0 [facility] Comment on above: Performed By: #### C MREP #### [facility] [address] [place] [address] Dr. Charlotte Argueta MCHC (RBC) [Mass/Vol] 31.8 g/dL Normal 29.9-35.2 [facility] Comment on above: Performed By: #### C MREP #### [facility] [address] [place] [address] Dr. Charlotte Argueta MCV (RBC) [Entitic vol] 95.7 fL Normal 81.0-99.0 [facility] Comment on above: Performed By: #### C MREP #### [facility] [address] [place] [address] Dr. Charlotte Argueta MONO # 0.7 103/ul Normal 0.3-0.8 [facility] Comment on above: Performed By: #### C MREP #### [facility] [address] [place] [address] Dr. Charlotte Argueta Monocytes/100 WBC (Bld) 11.1 % Normal 1.7-12.0 [facility] Comment on above: Performed By: #### C MREP #### [facility] [address] [place] [address] Dr. Charlotte Argueta NEUT # 3.0 103/ul Normal 1.4-6.5 [facility] Comment on above: Performed By: #### C MREP #### [facility] [address] [place] [address] Dr. Charlotte Argueta Neutrophils/100 WBC (Bld) 45.6 % Normal 43.0-75.0 [facility] Comment on above: Performed By: #### C MREP #### [facility] [address] [place] [address] Dr. Charlotte Argueta Platelet mean volume (Bld) [Entitic vol] 9.6 fL Normal 9.5-13.5 [facility] Comment on above: Performed By: #### C MREP #### [facility] [address] [place] [address] Dr. Charlotte Argueta PLT 369 103/ul Normal 150-450 [facility] Comment on above: Performed By: #### C MREP #### [facility] [address] [place] [address] Dr. Charlotte Argueta RBC 3.22 106/ul Critically low 4.20-5.40 [facility] Comment on above: Performed By: #### C MREP #### [facility] [address] [place] [address] Dr. Charlotte Argueta WBC 6.6 103/ul Normal 4.0-11.0 [facility] Comment on above: Performed By: #### C MREP #### [facility] [address] [place] [address] Dr. Charlotte Argueta PROF CHEM 8 (BAS METB)on Anion gap [Moles/Vol] 10.9 mmol/L Normal [facility] Comment on above: Performed By: #### C MP #### [facility] [address] [address] [address] Charlotte Argueta Calcium [Mass/Vol] 8.6 mg/dL Normal 8.5-10.1 [facility] Comment on above: Performed By: #### C MP #### [facility] [address] [address] [address] Charlotte Argueta Chloride [Moles/Vol] 104 mmol/L Normal 98-107 [facility] Comment on above: Performed By: #### C MP #### [facility] [address] [address] [address] Charlotte Argueta CO2 [Moles/Vol] 26.2 mmol/L Normal 21.0-32.0 [facility] Comment on above: Performed By: #### C MP #### [facility] [address] [address] [address] Charlotte Argueta Creatinine [Mass/Vol] 1.49 mg/dL Critically high 0.55-1.02 [facility] Comment on above: Performed By: #### C MP #### [facility] [address] [place] [address] Dr. Charlotte Argueta EGFR-AF ANGUILLAN 41 mL/min/1.73m2 Critically low >=60 [facility] Comment on above: Performed By: #### C MP #### [facility] [address] [address] [address] Charlotte Argueta EGFR-NON AF ANGUILLAN 34 mL/min/1.73m2 Critically low >=60 [facility] Comment on above: Performed By: #### C MP #### [facility] [address] [address] [address] Charlotte Argueta Glucose [Mass/Vol] 92 mg/dL Normal 74-106 [facility] Comment on above: Performed By: #### C MP #### [facility] [address] [address] [address] Charlotte Argueta Potassium [Moles/Vol] 4.1 mmol/L Normal 3.5-5.1 [facility] Comment on above: Performed By: #### C MP #### [facility] [address] [place] [address] Dr. Charlotte Argueta Sodium [Moles/Vol] 137 mmol/L Normal 136-145 [facility] Comment on above: Performed By: #### C MP #### [facility] [address] [place] [address] Dr. Charlotte Argueta Urea nitrogen [Mass/Vol] 35.0 mg/dL Critically high 7.0-18.0 [facility] Comment on above: Performed By: #### C MP #### [facility] [address] [place] [address] Dr. Charlotte Argueta Urea nitrogen/Creatinine [Mass ratio] 23.5 mg/mg Normal [facility] Comment on above: Performed By: #### C MP #### [facility] [address] [place] [address] Dr. Charlotte Argueta CBC AUTO DIFFon 01-23-2022 BASO # 0.0 103/ul Normal 0.0-0.1 [facility] Comment on above: Performed By: #### B [id number] #### [facility] [address] [place] [address] Dr. Charlotte Argueta Basophils/100 WBC (Bld) 0.6 % Normal 0.2-2.0 [facility] Comment on above: Performed By: #### B [id number] #### [facility] [address] [place] [address] Dr. Charlotte Argueta EO # 0.5 103/ul Normal 0.0-0.7 [facility] Comment on above: Performed By: #### B [id number] #### [facility] [address] [place] [address] Dr. Charlotte Argueta Eosinophils/100 WBC (Bld) 8.5 % Critically high 0.9-7.0 [facility] Comment on above: Performed By: #### B [id number] #### [facility] [address] [place] [address] Dr. Charlotte Argueta Erythrocyte distribution width (RBC) [Ratio] 14.4 % Normal 11.0-15.0 [facility] Comment on above: Performed By: #### B [id number] #### [facility] [address] [place] [address] Dr. Charlotte Argueta Hematocrit (Bld) [Volume fraction] 29.0 % Critically low 36.0-48.0 [facility] Comment on above: Performed By: #### B [id number] #### [facility] [address] [place] [address] Dr. Charlotte Argueta Hemoglobin (Bld) [Mass/Vol] 9.2 g/dL Critically low 12.0-16.0 [facility] Comment on above: Performed By: #### B [id number] #### [facility] [address] [place] [address] Dr. Charlotte Argueta IG # 0.03 10e3/ul Normal 0.00-0.03 [facility] Comment on above: Performed By: #### B [id number] #### [facility] [address] [place] [address] Dr. Charlotte Argueta IG % 0.5 % Normal 0.0-0.5 [facility] Comment on above: Performed By: #### B [id number] #### [facility] [address] [place] [address] Dr. Cahrlotte Argueta LYMPH # 2.0 103/ul Normal 1.2-3.8 [facility] Comment on above: Performed By: #### B [id number] #### [facility] [address] [place] [address] Dr. Charlotte Argueta Lymphocytes/100 WBC (Bld) 32.6 % Normal 20.5-60.0 [facility] Comment on above: Performed By: #### B [id number] #### [facility] [address] [place] [address] Dr. Charlotte Argueta MANUAL DIFF REQ NO Normal [facility] Comment on above: Performed By: #### B [id number] #### [facility] [address] [place] [address] Dr. Charlotte Argueta MCH (RBC) [Entitic mass] 30.1 pg Normal 26.7-34.0 [facility] Comment on above: Performed By: #### B [id number] #### [facility] [address] [place] [address] Dr. Charlotte Argueta MCHC (RBC) [Mass/Vol] 31.7 g/dL Normal 29.9-35.2 [facility] Comment on above: Performed By: #### B [id number] #### [facility] [address] [place] [address] Dr. Charlotte Argueta MCV (RBC) [Entitic vol] 94.8 fL Normal 81.0-99.0 [facility] Comment on above: Performed By: #### B [id number] #### [facility] [address] [place] [address] Dr. Charlotte Argueta MONO # 0.6 103/ul Normal 0.3-0.8 [facility] Comment on above: Performed By: #### B [id number] #### [facility] [address] [place] [address] Dr. Charlotte Argueta Monocytes/100 WBC (Bld) 10.0 % Normal 1.7-12.0 [facility] Comment on above: Performed By: #### B [id number] #### [facility] [address] [place] [address] Dr. Charlotte Argueta NEUT # 3.0 103/ul Normal 1.4-6.5 [facility] Comment on above: Performed By: #### B [id number] #### [facility] [address] [place] [address] Dr. Charlotte Argueta Neutrophils/100 WBC (Bld) 47.8 % Normal 43.0-75.0 [facility] Comment on above: Performed By: #### B [id number] #### [facility] [address] [place] [address] Dr. Charlotte Argueta Platelet mean volume (Bld) [Entitic vol] 9.8 fL Normal 9.5-13.5 [facility] Comment on above: Performed By: #### B [id number] #### [facility] [address] [address] [address] Charlotte Argueta PLT 386 103/ul Normal 150-450 [facility] Comment on above: Performed By: #### B [id number] #### [facility] [address] [address] [address] Charlotte Argueta RBC 3.06 106/ul Critically low 4.20-5.40 [facility] Comment on above: Performed By: #### B [id number] #### [facility] [address] [address] [address] Charlotte Argueta WBC 6.2 103/ul Normal 4.0-11.0 [facility] Comment on above: Performed By: #### B [id number] #### [facility] [address] [place] [address] Dr. Charlotte Argueta PROF CHEM 8 (BAS METB)on Anion gap [Moles/Vol] 11.1 mmol/L Normal [facility] Comment on above: Performed By: #### C MP #### [facility] [address] [place] [address] Dr. Charlotte Argueta Calcium [Mass/Vol] 8.5 mg/dL Normal 8.5-10.1 [facility] Comment on above: Performed By: #### C MP #### [facility] [address] [place] [address] Dr. Charlotte Argueta Chloride [Moles/Vol] 107 mmol/L Normal 98-107 [facility] Comment on above: Performed By: #### C MP #### [facility] [address] [place] [address] Dr. Charlotte Argueta CO2 [Moles/Vol] 26.9 mmol/L Normal 21.0-32.0 [facility] Comment on above: Performed By: #### C MP #### [facility] [address] [place] [address] Dr. Charlotte Argueta Creatinine [Mass/Vol] 1.53 mg/dL Critically high 0.55-1.02 [facility] Comment on above: Performed By: #### C MP #### [facility] [address] [address] [address] Charlotte Argueta EGFR-AF ANGUILLAN 40 mL/min/1.73m2 Critically low >=60 [facility] Comment on above: Performed By: #### C MP #### [facility] [address] [address] [address] Charlotte Argueta EGFR-NON AF ANGUILLAN 33 mL/min/1.73m2 Critically low >=60 [facility] Comment on above: Performed By: #### C MP #### [facility] [address] [address] [address] Charlotte Argueta Glucose [Mass/Vol] 93 mg/dL Normal 74-106 [facility] Comment on above: Performed By: #### C MP #### [facility] [address] [address] [address] Charlotte Argueta Potassium [Moles/Vol] 4.0 mmol/L Normal 3.5-5.1 [facility] Comment on above: Performed By: #### C MP #### [facility] [address] [address] [address] Charlotte Argueta Sodium [Moles/Vol] 141 mmol/L Normal 136-145 [facility] Comment on above: Performed By: #### C MP #### [facility] [address] [address] [address] Charlotte Argueta Urea nitrogen [Mass/Vol] 33.0 mg/dL Critically high 7.0-18.0 [facility] Comment on above: Performed By: #### C MP #### [facility] [address] [address] [address] Charlotte Argueta Urea nitrogen/Creatinine [Mass ratio] 21.6 mg/mg Normal [facility] Comment on above: Performed By: #### C MP #### [facility] [address] [address] [address] Charlotte Argueta CBC AUTO DIFFon 01-22-2022 BASO # 0.0 103/ul Normal 0.0-0.1 [facility] Comment on above: Performed By: #### B [id number] #### [facility] [address] [place] [address] Dr. Charlotte Argueta Basophils/100 WBC (Bld) 0.6 % Normal 0.2-2.0 [facility] Comment on above: Performed By: #### B [id number] #### [facility] [address] [place] [address] Dr. Charlotte Argueta EO # 0.6 103/ul Normal 0.0-0.7 [facility] Comment on above: Performed By: #### B [id number] #### [facility] [address] [place] [address] Dr. Charlotte Argueta Eosinophils/100 WBC (Bld) 8.8 % Critically high 0.9-7.0 [facility] Comment on above: Performed By: #### B [id number] #### [facility] [address] [place] [address] Dr. Charlotte Argueta Erythrocyte distribution width (RBC) [Ratio] 14.3 % Normal 11.0-15.0 [facility] Comment on above: Performed By: #### B [id number] #### [facility] [address] [place] [address] Dr. Charlotte Argueta Hematocrit (Bld) [Volume fraction] 29.2 % Critically low 36.0-48.0 [facility] Comment on above: Performed By: #### B [id number] #### [facility] [address] [place] [address] Dr. Charlotte Argueta Hemoglobin (Bld) [Mass/Vol] 9.2 g/dL Critically low 12.0-16.0 [facility] Comment on above: Performed By: #### B [id number] #### [facility] [address] [place] [address] Dr. Charlotte Argueta IG # 0.03 10e3/ul Normal 0.00-0.03 [facility] Comment on above: Performed By: #### B [id number] #### [facility] [address] [place] [address] Dr. Charlotte Argueta IG % 0.5 % Normal 0.0-0.5 [facility] Comment on above: Performed By: #### B [id number] #### [facility] [address] [address] [address] Charlotte Argueta LYMPH # 1.8 103/ul Normal 1.2-3.8 [facility] Comment on above: Performed By: #### B [id number] #### [facility] [address] [place] [address] Dr. Charlotte Argueta Lymphocytes/100 WBC (Bld) 27.5 % Normal 20.5-60.0 [facility] Comment on above: Performed By: #### B [id number] #### [facility] [address] [place] [address] Dr. Charlotte Argueta MANUAL DIFF REQ NO Normal [facility] Comment on above: Performed By: #### B [id number] #### [facility] [address] [place] [address] Dr. Charlotte Argueta MCH (RBC) [Entitic mass] 30.1 pg Normal 26.7-34.0 [facility] Comment on above: Performed By: #### B [id number] #### [facility] [address] [place] [address] Dr. Charlotte Argueta MCHC (RBC) [Mass/Vol] 31.5 g/dL Normal 29.9-35.2 [facility] Comment on above: Performed By: #### B [id number] #### [facility] [address] [place] [address] Dr. Charlotte Argueta MCV (RBC) [Entitic vol] 95.4 fL Normal 81.0-99.0 [facility] Comment on above: Performed By: #### B [id number] #### [facility] [address] [place] [address] Dr. Charlotte Argueta MONO # 0.6 103/ul Normal 0.3-0.8 [facility] Comment on above: Performed By: #### B [id number] #### [facility] [address] [place] [address] Dr. Charlotte Argueta Monocytes/100 WBC (Bld) 9.7 % Normal 1.7-12.0 [facility] Comment on above: Performed By: #### B [id number] #### [facility] [address] [address] [address] Charlotte Argueta NEUT # 3.5 103/ul Normal 1.4-6.5 [facility] Comment on above: Performed By: #### B [id number] #### [facility] [facility] [address] [place] [address] Dr. Charlotte Argueta Neutrophils/100 WBC (Bld) 52.9 % Normal 43.0-75.0 [facility] Comment on above: Performed By: #### B LDCX1 #### [facility] [address] [place] [address] Dr. Charlotte Argueta Platelet mean volume (Bld) [Entitic vol] 10.0 fL Normal 9.5-13.5 [facility] Comment on above: Performed By: #### B LDCX1 #### [facility] [address] [place] [address] Dr. Charlotte Argueta PLT 380 103/ul Normal 150-450 [facility] Comment on above: Performed By: #### B LDCX1 #### [facility] [address] [place] [address] Dr. Charlotte Argueta RBC 3.06 106/ul Critically low 4.20-5.40 [facility] Comment on above: Performed By: #### B LDCX1 #### [facility] [address] [place] [address] Dr. Charlotte Argueta WBC 6.6 103/ul Normal 4.0-11.0 [facility] Comment on above: Performed By: #### B LDCX1 #### [facility] [address] [place] [address] Dr. Charlotte Argueta BNPon 01-21-2022 Natriuretic peptide B (Bld) [Mass/Vol] 1068.0 pg/mL Normal <=1,800.0 [facility] Comment on above: Performed By: #### I NFLUAB #### [facility] [address] [place] [address] Dr. Charlotte Argueta CARDIAC DRE 3-6on 2 CK [Catalytic activity/Vol] 80 U/L Normal 26-192 [facility] Comment on above: Result Comment: SPEC IMEN SLIGHTLY HEMOLYZED MAY AFFECT CK Performed By: #### B LDCX1 #### [facility] [address] [place] [address] Dr. Charlotte Argueta CK.MB [Mass/Vol] 0.55 ng/mL Normal <=3.60 [facility] Comment on above: Performed By: #### B LDCX1 #### [facility] [address] [place] [address] Dr. Charlotte Argueta HSTROP 7.8 pg/mL Normal 4.0-51.3 [facility] Comment on above: Result Comment: CUT- OFF POINTS HAVE BEEN ESTABLISHED BASED ON THE FOURTH UNIVERSAL DEFINITIONS OF MYOCARDIAL INFARCTION. THE UPPER REFERENCE LIMIT (URL) OF TROPONIN, DEFINED THE 99TH PERCENTILE OF cTnI DISTRIBUTION IN A REFERENCE POPULATION, HAS BEEN CONFIRMED THE DECISION THRESHOLD FOR [place] DIAGNOSIS. Performed By: #### B LDCX1 #### [facility] [address] [place] [address] Dr. Charlotte Argueta CK [Catalytic activity/Vol] 45 U/L Normal 26-192 [facility] Comment on above: Performed By: #### C MREP #### [facility] [address] [place] [address] Dr. Charlotte Argueta CK.MB [Mass/Vol] 0.64 ng/mL Normal <=3.60 [facility] Comment on above: Performed By: #### C MREP #### [facility] [address] [place] [address] Dr. Charlotte Argueta HSTROP 9.2 pg/mL Normal 4.0-51.3 [facility] Comment on above: Result Comment: CUT- OFF POINTS HAVE BEEN ESTABLISHED BASED ON THE FOURTH UNIVERSAL DEFINITIONS OF MYOCARDIAL INFARCTION. THE UPPER REFERENCE LIMIT (URL) OF TROPONIN, DEFINED THE 99TH PERCENTILE OF cTnI DISTRIBUTION IN A REFERENCE POPULATION, HAS BEEN CONFIRMED THE DECISION THRESHOLD FOR [place] DIAGNOSIS. Performed By: #### C MREP #### [facility] [address] [place] [address] Dr. Charlotte Argueta CARDIAC DRE ADMITon 022 CK [Catalytic activity/Vol] 41 U/L Normal 26-192 [facility] Comment on above: Performed By: #### T MAYR, FT3 #### [facility] [address] [place] [address] Dr. Charlotte Argueta CK.MB [Mass/Vol] ng/mL Normal <=3.60 [facility] Comment on above: Performed By: #### T MARY, FT3 #### [facility] [address] [place] [address] Dr. Charlotte Argueta HSTROP 10.1 pg/mL Normal 4.0-51.3 [facility] Comment on above: Result Comment: CUT- OFF POINTS HAVE BEEN ESTABLISHED BASED ON THE FOURTH UNIVERSAL DEFINITIONS OF MYOCARDIAL INFARCTION. THE UPPER REFERENCE LIMIT (URL) OF TROPONIN, DEFINED THE 99TH PERCENTILE OF cTnI DISTRIBUTION IN A REFERENCE POPULATION, HAS BEEN CONFIRMED THE DECISION THRESHOLD FOR [place] DIAGNOSIS. Performed By: #### T MARY, FT3 #### [facility] [address] [place] [address] Dr. Charlotte Argueta RICH 50 ng/mL Normal 9-82 [facility] Comment on above: Performed By: #### T MARY, FT3 #### [facility] [address] [place] [address] Dr. Charlotte Argueta CBC AUTO DIFFon 01-21-2022 BASO # 0.1 103/ul Normal 0.0-0.1 [facility] Comment on above: Performed By: #### Andi HERNANDEZ, FT3 #### [facility] [address] [place] [address] Dr. Charlotte Argueta Basophils/100 WBC (Bld) 0.8 % Normal 0.2-2.0 [facility] Comment on above: Performed By: #### T MARY, FT3 #### [facility] [address] [place] [address] Dr. Charlotte Argueta EO # 0.5 103/ul Normal 0.0-0.7 [facility] Comment on above: Performed By: #### T MARY, FT3 #### [facility] [address] [place] [address] Dr. Charlotte Argueta Eosinophils/100 WBC (Bld) 8.5 % Critically high 0.9-7.0 [facility] Comment on above: Performed By: #### T SH, FT3 #### [facility] [address] [place] [address] Dr. Charlotte Argueta Erythrocyte distribution width (RBC) [Ratio] 13.9 % Normal 11.0-15.0 [facility] Comment on above: Performed By: #### T SH, FT3 #### [facility] [address] [place] [address] Dr. Charlotte Argueta Hematocrit (Bld) [Volume fraction] 33.9 % Critically low 36.0-48.0 [facility] Comment on above: Performed By: #### T MARY, FT3 #### [facility] [address] [place] [address] Dr. Charlotte Argueta Hemoglobin (Bld) [Mass/Vol] 10.7 g/dL Critically low 12.0-16.0 [facility] Comment on above: Performed By: #### T SH, FT3 #### [facility] [address] [place] [address] Dr. Charlotte Argueta IG # 0.03 10e3/ul Normal 0.00-0.03 [facility] Comment on above: Performed By: #### T MARY, FT3 #### [facility] [address] [place] [address] Dr. Charlotte Argueta IG % 0.5 % Normal 0.0-0.5 [facility] Comment on above: Performed By: #### T SH, FT3 #### [facility] [address] [place] [address] Dr. Charlotte Argueta LYMPH # 1.6 103/ul Normal 1.2-3.8 [facility] Comment on above: Performed By: #### T SH, FT3 #### [facility] [address] [place] [address] Dr. Charlotte Argueta Lymphocytes/100 WBC (Bld) 25.4 % Normal 20.5-60.0 [facility] Comment on above: Performed By: #### T SH, FT3 #### [facility] [address] [place] [address] Dr. Charlotte Argueta MANUAL DIFF REQ NO Normal [facility] Comment on above: Performed By: #### T SH, FT3 #### [facility] [address] [place] [address] Dr. Charlotte Argueta MCH (RBC) [Entitic mass] 30.1 pg Normal 26.7-34.0 [facility] Comment on above: Performed By: #### T SH, FT3 #### [facility] [address] [place] [address] Dr. Charlotte Argueta MCHC (RBC) [Mass/Vol] 31.6 g/dL Normal 29.9-35.2 [facility] Comment on above: Performed By: #### T SH, FT3 #### [facility] [address] [place] [address] Dr. Charlotte Argueta MCV (RBC) [Entitic vol] 95.2 fL Normal 81.0-99.0 [facility] Comment on above: Performed By: #### T , FT3 #### [facility] [address] [place] [address] Dr. Charlotte Argueta MONO # 0.6 103/ul Normal 0.3-0.8 [facility] Comment on above: Performed By: #### T , FT3 #### [facility] [address] [place] [address] Dr. Charlotte Argueta Monocytes/100 WBC (Bld) 9.6 % Normal 1.7-12.0 [facility] Comment on above: Performed By: #### T , FT3 #### [facility] [address] [place] [address] Dr. Charlotte Argueta NEUT # 3.5 103/ul Normal 1.4-6.5 [facility] Comment on above: Performed By: #### T SH, FT3 #### [facility] [address] [place] [address] Dr. Charlotte Argueta Neutrophils/100 WBC (Bld) 55.2 % Normal 43.0-75.0 [facility] Comment on above: Performed By: #### T SH, FT3 #### [facility] [address] [address] [address] Charlotte Argueta Platelet mean volume (Bld) [Entitic vol] 9.5 fL Normal 9.5-13.5 [facility] Comment on above: Performed By: #### T SH, FT3 #### [facility] [address] [address] [address] Charlotte Argueta PLT 408 103/ul Normal 150-450 [facility] Comment on above: Performed By: #### T SH, FT3 #### [facility] [address] [address] [address] Charlotte Argueta RBC 3.56 106/ul Critically low 4.20-5.40 [facility] Comment on above: Performed By: #### T SH, FT3 #### [facility] [address] [address] [address] Charlotte Argueta WBC 6.3 103/ul Normal 4.0-11.0 [facility] Comment on above: Performed By: #### T SH, FT3 #### [facility] [address] [address] [address] Charlotte Argueta [facility] SARS-CoV-2 (COVID-19) RNA DANNY+probe Ql (Unsp spec) Not detected Normal NOT DETECTED [facility] Comment on above: Result Comment: When diagnostic [...] for this test is supported by the [place] of Health and Human Service's declaration that [...] Performed By: #### T SH, FT3 #### [facility] [address] [place] [address] Dr. Charlotte Argueta FREE T3on 01-21-2022 FREE T3 1.38 pg/mlL Critically low 2.18-3.98 [facility] Comment on above: Performed By: #### T SH, FT3 #### [facility] [address] [place] [address] Dr. Charlotte Argueta FREE T4on 01-21-2022 Free T4 [Mass/Vol] 1.17 ng/dL Normal 0.76-1.46 [facility] Comment on above: Performed By: #### I NFLUAB #### [facility] [address] [place] [address] Dr. Charlotte Argueta IRON AND TIBCon 01-21-2022 % SATURATION 21.2 % Normal [facility] Comment on above: Performed By: #### C MREP #### [facility] [address] [place] [address] Dr. Charlotte Argueta Iron [Mass/Vol] 72.0 ug/dL Normal 50.0-170.0 [facility] Comment on above: Performed By: #### C MREP #### [facility] [address] [place] [address] Dr. Charlotte Argueta TIBC DIRECT 340.0 ug/dL Normal 250.0-450.0 [facility] Comment on above: Performed By: #### C MREP #### [facility] [address] [place] [address] Dr. Charlotte Argueta LIVER PROFILEon 01-21-2022 Albumin [Mass/Vol] 3.3 g/dL Critically low 3.4-5.0 [facility] Comment on above: Performed By: #### L IVER #### [facility] [address] [place] [address] Dr. Charlotte Argueta Albumin/Globulin [Mass ratio] 0.9 {ratio} Normal [facility] Comment on above: Performed By: #### L IVER #### [facility] [address] [address] [address] Charlotte Argueta ALP [Catalytic activity/Vol] 71 U/L Normal 46-116 [facility] Comment on above: Performed By: #### L IVER #### [facility] [address] [address] [address] Charlotte Argueta ALT [Catalytic activity/Vol] 23 U/L Normal 14-59 [facility] Comment on above: Performed By: #### L IVER #### [facility] [address] [address] [address] Charlotte Argueta AST [Catalytic activity/Vol] 23 U/L Normal 15-37 [facility] Comment on above: Performed By: #### L IVER #### [facility] [address] [address] [address] Charlotte Argueta BILI, CONJUGATED 0.1 mg/dL Normal 0.0-0.2 [facility] Comment on above: Performed By: #### L IVER #### [facility] [address] [address] [address] Charlotte Argueta Bilirubin [Mass/Vol] 0.3 mg/dL Normal 0.2-1.0 [facility] Comment on above: Performed By: #### L IVER #### [facility] [address] [address] [address] Charlotte Argueta Globulin (S) [Mass/Vol] 3.6 g/dL Normal [facility] Comment on above: Performed By: #### L IVER #### [facility] [address] [address] [address] Charlotte Argueta Protein [Mass/Vol] 6.9 g/dL Normal 6.4-8.2 [facility] Comment on above: Performed By: #### L IVER #### [facility] [address] [address] [address] Charlotte Argueta PROF CHEM 8 (BAS METB)on Anion gap [Moles/Vol] 15.1 mmol/L Normal [facility] Comment on above: Performed By: #### T SH, FT3 #### [facility] [address] [place] [address] Dr. Charlotte Argueta Calcium [Mass/Vol] 8.7 mg/dL Normal 8.5-10.1 [facility] Comment on above: Performed By: #### T SH, FT3 #### [facility] [address] [place] [address] Dr. Charlotte Argueta Chloride [Moles/Vol] 100 mmol/L Normal 98-107 [facility] Comment on above: Performed By: #### T SH, FT3 #### [facility] [address] [place] [address] Dr. Charlotte Argueta CO2 [Moles/Vol] 25.2 mmol/L Normal 21.0-32.0 [facility] Comment on above: Performed By: #### T SH, FT3 #### [facility] [address] [place] [address] Dr. Charlotte Argueta Creatinine [Mass/Vol] 1.60 mg/dL Critically high 0.55-1.02 [facility] Comment on above: Performed By: #### T SH, FT3 #### [facility] [address] [place] [address] Dr. Charlotte Argueta EGFR-AF ANGUILLAN 38 mL/min/1.73m2 Critically low >=60 [facility] Comment on above: Performed By: #### T SH, FT3 #### [facility] [address] [place] [address] Dr. Charlotte Argueta EGFR-NON AF ANGUILLAN 31 mL/min/1.73m2 Critically low >=60 [facility] Comment on above: Performed By: #### T SH, FT3 #### [facility] [address] [place] [address] Dr. Charlotte Argueta Glucose [Mass/Vol] 105 mg/dL Normal 74-106 [facility] Comment on above: Performed By: #### T SH, FT3 #### [facility] [address] [place] [address] Dr. Charlotte Argueta Potassium [Moles/Vol] 4.3 mmol/L Normal 3.5-5.1 [facility] Comment on above: Performed By: #### T MARY, FT3 #### [facility] [address] [place] [address] Dr. Charlotte Argueta Sodium [Moles/Vol] 136 mmol/L Normal 136-145 [facility] Comment on above: Performed By: #### T MARY, FT3 #### [facility] [address] [place] [address] Dr. Charlotte Argueta Urea nitrogen [Mass/Vol] 36.0 mg/dL Critically high 7.0-18.0 [facility] Comment on above: Performed By: #### T MARY, FT3 #### [facility] [address] [place] [address] Dr. Charlotte Argueta Urea nitrogen/Creatinine [Mass ratio] 22.5 mg/mg Normal [facility] Comment on above: Performed By: #### T MARY, FT3 #### [facility] [address] [place] [address] Dr. Charlotte Argueta PROTIMEon 01-21-2022 INR Coag (PPP) [Relative time] {INR} Normal [facility] Comment on above: Performed By: #### T MARY, FT3 #### [facility] [address] [place] [address] Dr. Charlotte Argueta INR GUIDELINES SEE BELOW Normal [facility] Comment on above: Result Comment: CORI RED INR: 2.0 - 3.0 CONDITIONS NOT LISTED BELOW 2.5 - 3.5 FOR PROSTHETIC HEART VALVE REPLACEMENT 2.5 - 3.5 RECURRENT THROMBOSIS Performed By: #### T MARY, FT3 #### [facility] [address] [place] [address] Dr. Charlotte Argueta PT Coag (PPP) [Time] 9.6 s Normal 9.0-11.6 [facility] Comment on above: Performed By: #### T MARY, FT3 #### [facility] [address] [place] [address] Dr. Charlotte Argueta PTTon 05-21-2022 aPTT Coag (Bld) [Time] 23.1 s Normal 22.3-36.2 [facility] Comment on above: Performed By: #### L IVER #### [facility] [address] [place] [address] Dr. Charlotte Argueta TSHon 01-21-2022 TSH 6.405 uIU/mL Critically high 0.358-3.740 [facility] Comment on above: Performed By: #### T SH, FT3 #### [facility] [address] [place] [address] Dr. Charlotte Argueta TSH RANGE SEE BELOW Normal [facility] Comment on above: Result Comment: <0.3 4 UIU/ml HYPERTHYROID 0.34-5.60 UIU/ml EUTHYROID >5.60 UIU/ml HYPOTHYROID Performed By: #### T SH, FT3 #### [facility] [address] [place] [address] Dr. 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 Charlotte Argueta Clarity (U) CLEAR Normal CLEAR [facility] Comment on above: Performed By: #### C MP #### [facility] [address] [place] [address] Dr. Charlotte Argueta Color (U) LT. YELLOW Normal YELLOW [facility] Comment on above: Performed By: #### C MP #### [facility] [address] [place] [address] Dr. Charlotte Argueta Glucose Ql (U) Negative Normal NEGATIVE [facility] Comment on above: Performed By: #### C MP #### [facility] [address] [place] [address] Dr. Charlotte Argueta Hemoglobin Ql (U) Negative Normal NEGATIVE [facility] Comment on above: Performed By: #### C MP #### [facility] [address] [place] [address] Dr. Charlotte Argueta Ketones Ql (U) Negative Normal NEGATIVE [facility] Comment on above: Performed By: #### C MP #### [facility] [address] [place] [address] Dr. Charlotte Argueta LEUKOCYTES Negative Normal NEGATIVE [facility] Comment on above: Performed By: #### C MP #### [facility] [address] [place] [address] Dr. Charlotte Argueta Nitrite Ql (U) Negative Normal NEGATIVE [facility] Comment on above: Performed By: #### C MP #### [facility] [address] [place] [address] Dr. Charlotte Argueta pH (U) 6.5 [pH] Normal 5-9 [facility] Comment on above: Performed By: #### C MP #### [facility] [address] [place] [address] Dr. Charlotte Argueta SPEC GRAVITY <=1.005 Abnormal 1.005-<=1.025 [facility] Comment on above: Performed By: #### C MP #### [facility] [address] [place] [address] Dr. Charlotte Argueta UA PROTEIN Negative Normal NEGATIVE/ TRACE [facility] Comment on above: Performed By: #### C MP #### [facility] [address] [place] [address] Dr. Charlotte Argueta UR MICRO IND NOT INDICATED Normal [facility] Comment on above: Performed By: #### C MP #### [facility] [address] [place] [address] Dr. Charlotte Argueta Urobilinogen Qn (U) 0.2 {Kathia'U}/dL Normal 0.2 - 1. 0 [facility] Comment on above: Performed By: #### C MP #### [facility] [address] [place] [address] Dr. Charlotte Argueta VIT B12 AND FOLATEon 022 Cobalamin (Vitamin B12) [Mass/Vol] 163.0 pg/mL Critically low 193.0-986.0 [facility] Comment on above: Performed By: #### C MREP #### [facility] [address] [address] [address] Charlotte Argueta FOLATE 19.30 ng/mL Normal 8.60-58.90 [facility] Comment on above: Performed By: #### C MREP #### [facility] [address] [place], [place] [address] Dr. Charlotte Argueta VITAMIN D 25 OHon 01-21-2022 VIT D 25-OH 24.9 ng/mL Normal [facility] Comment on above: Performed By: #### I NFLUAB #### [facility] [address] [place], [place] [address] Dr. Charlotte Argueta VIT D RANGES SEE BELOW Normal [facility] Comment on above: Result Comment: <20 ng/mL Vit D deficient 20 - <30 ng/mL Vit D insufficient 30 - 100 ng/mL Vit D sufficient >100 ng/mL Potential Toxicity Performed By: #### I NFLUAB #### [facility] [address] [address] [address] Charlotte Argueta XR CHEST 1 Von [...] BETH SAID Date: 2022-01-21 06:32 Normal [facility] XR hip RT min 2V(w/wo pelvis )*on 03-30-2021 XR hip RT min 2V(w/wo pelvis)* [facility] [place] [address] [place], [place] [id number] XRay Report Signed Patient: Emy Cheatham MR#: [id number] : 1945 Acct:[id number] Age/Sex: 75 / F ADM Date: 03/30/21 [...] Dre Alexander M.D.03/30/2021 2:57 PM Dictation Location: [place] [address] Transcribed By: [facility] 03/30/21 145 Dictated By: Dre Alexander II, MD 03/30/211454 Signed By: 03/30/21 145 [facility] CBC COMPLETE BLOOD COUNTon 09-16-2018 Erythrocyte distribution width (RBC) [Ratio] 16.3 % High 11.5-15.0 [facility] Comment on above: Order Comment: No: D o not add to previous drawNurse draw per farooq dunham Performed By: #### 4 1000, 27914, 12118, 09287, 54450, 61749, 91722 #### [facility] [address] [place] [address], [facility] Hematocrit (Bld) [Volume fraction] 26.9 % Low 36.0-45.0 [facility] [place] Comment on above: Order Comment: No: D o not add to previous drawNurse draw per farooq dunham Performed By: #### 4 1000, 73948, 12654, 76439, 11256, 74675, 64425 #### [facility] [address] [place] [address], [facility] Hemoglobin (Bld) [Mass/Vol] 8.4 g/dL Low 12.0-15.0 The [facility] [place] Comment on above: Order Comment: No: D o not add to previous drawNurse draw per rn charla Performed By: #### 4 1000, 65901, 19031, 25069, 18462, 70649, 66275 #### [facility] [address] [place] [place] [address], [facility] MCH (RBC) [Entitic mass] 27.4 pg Normal 27.0-33.0 [facility] [place] Comment on above: Order Comment: No: D o not add to previous drawNurse draw per rn charla Performed By: #### 4 1000, 18400, 54753, 18847, 58041, 40317, 61868 #### [facility] [address] [place] [address], [facility] MCHC (RBC) [Mass/Vol] 31.2 g/dL Low 32.0-35.0 [facility] [place] Comment on above: Order Comment: No: D o not add to previous drawNurse draw per rn charla Performed By: #### 4 1000, 52767, 61329, 61255, 19373, 13024, 44663 #### [facility] [address] [place] [address], [facility] MCV (RBC) [Entitic vol] 87.6 fL Normal 82.0-98.0 [facility] [place] Comment on above: Order Comment: No: D o not add to previous drawNurse draw per rn charla Performed By: #### 4 1000, 01983, 19101, 00442, 13168, 56018, 72930 #### [facility] [address] [place] [address], [facility] Nucleated RBC/100 WBC (Bld) [Ratio] 0 % Normal 0-0 [facility] [place] Comment on above: Order Comment: No: D o not add to previous drawNurse draw per rn charla Performed By: #### 4 1000, 52955, 84479, 60534, 80649, 12030, 38193 #### [facility] [address] [place] [address], [facility] PLAT CNT 838 10*3/uL High 150-400 The [facility] Comment on above: Order Comment: No: D o not add to previous drawNurse draw per rn charla Performed By: #### 4 1000, 70032, 34019, 56411, 26059, 51574, 55055 #### [facility] [address] [place] [address], [facility] RBC (Bld) [#/Vol] 3.07 10*6/uL Low 3.80-5.00 The [facility] Comment on above: Order Comment: No: D o not add to previous drawNurse draw per rn charla Performed By: #### 4 1000, 48387, 19915, 03219, 87198, 04405, 04235 #### [facility] [address] [place] [address], [facility] WBC (Bld) [#/Vol] 8.82 10*3/uL Normal 4.00-10.60 The [facility] Comment on above: Order Comment: No: D o not add to previous drawNurse draw per rn charla Performed By: #### 4 1000, 06530, 19627, 52049, 17104, 87376, 09448 #### [facility] [address] [place] [address], [facility] CBC COMPLETE BLOOD COUNTon 09-15-2018 Erythrocyte distribution width (RBC) [Ratio] 15.9 % High 11.5-15.0 [facility] Comment on above: Order Comment: No: D o not add to previous draw Performed By: #### 4 1000, 08973, 00987, 17729, 13290, 70343, 82317 #### [facility] [address] [place] [address], [facility] Hematocrit (Bld) [Volume fraction] 26.5 % Low 36.0-45.0 [facility] [place] Comment on above: Order Comment: No: D o not add to previous draw Performed By: #### 4 1000, 49822, 71676, 48150, 39905, 56672, 60882 #### [facility] [address] [place] [address], [facility] Hemoglobin (Bld) [Mass/Vol] 8.3 g/dL Low 12.0-15.0 [facility] [place] Comment on above: Order Comment: No: D o not add to previous draw Performed By: #### 4 1000, 18097, 77138, 39384, 94914, 25614, 11215 #### [facility] [address] [place] [address], [facility] MCH (RBC) [Entitic mass] 26.9 pg Low 27.0-33.0 [facility] [place] Comment on above: Order Comment: No: D o not add to previous draw Performed By: #### 4 1000, 11972, 08782, 81529, 64835, 60688, 38675 #### [facility] [address] [place] [place] [address], [facility] MCHC (RBC) [Mass/Vol] 31.3 g/dL Low 32.0-35.0 [facility] [place] Comment on above: Order Comment: No: D o not add to previous draw Performed By: #### 4 1000, 99403, 23934, 40475, 89808, 55851, 64140 #### [facility] [address] [place] [address], [facility] MCV (RBC) [Entitic vol] 85.8 fL Normal 82.0-98.0 [facility] [place] Comment on above: Order Comment: No: D o not add to previous draw Performed By: #### 4 1000, 87141, 88123, 02331, 03105, 09334, 19815 #### [facility] [address] [place] [address], [facility] Nucleated RBC/100 WBC (Bld) [Ratio] 0 % Normal 0-0 [facility] Comment on above: Order Comment: No: D o not add to previous draw Performed By: #### 4 1000, 86192, 45851, 43221, 15703, 21263, 61842 #### [facility] [address] [place] [address], [facility] PLAT CNT 881 10*3/uL High 150-400 The [facility] Comment on above: Order Comment: No: D o not add to previous draw Performed By: #### 4 1000, 19154, 74104, 26260, 21417, 76871, 61660 #### [facility] [address] [place] [address], [facility] RBC (Bld) [#/Vol] 3.09 10*6/uL Low 3.80-5.00 The [facility] Comment on above: Order Comment: No: D o not add to previous draw Performed By: #### 4 1000, 27509, 24005, 74030, 40068, 97024, 55588 #### [facility] [address] [place] [address], [facility] WBC (Bld) [#/Vol] 10.95 10*3/uL High 4.00-10.60 The [facility] [place] Comment on above: Order Comment: No: D o not add to previous draw Performed By: #### 4 1000, 60045, 65836, 52531, 83644, 51059, 57927 #### [facility] [address] [place] [address], [facility] MAGNESIUM BLOODon 07-16-2019 Magnesium [Mass/Vol] 1.7 mg/dL Low 1.9-2.7 [facility] Comment on above: Order Comment: No: D o not add to previous draw Performed By: #### 4 1000, 88977, 44483, 48123, 81565, 13293, 40103 #### [facility] [address] [place] [address], [place] BASIC METABOLIC PANELon 11- Calcium [Mass/Vol] 8.8 mg/dL Normal 8.6-10.[address] [facility] Comment on above: Order Comment: No: D o not add to previous draw Performed By: #### 4 1000, 37495, 02130, 76411, 01714, 71469, 59739 #### [facility] [address] [place] [address], [place] Chloride [Moles/Vol] 104 mmol/L Normal 98-107 [facility] [place] Comment on above: Order Comment: No: D o not add to previous draw Performed By: #### 4 1000, 32322, 84007, 90776, 97525, 87016, 30833 #### [facility] [address] [place] [address], [place] CO2 [Moles/Vol] 28 mmol/L Normal 21-31 [facility] Comment on above: Order Comment: No: D o not add to previous draw Performed By: #### 4 1000, 81928, 88360, 06040, 83742, 12754, 94808 #### [facility] [address] [place] [address], [place] Creatinine [Mass/Vol] 0.57 mg/dL Low 0.60-1.20 [facility] [place] Comment on above: Order Comment: No: D o not add to previous draw Performed By: #### 4 1000, 65886, 39790, 67172, 82869, 65873, 27099 #### [facility] [address] [place] [address], [place] GFR/1.73 sq M predicted among blacks MDRD (S/P/Bld) [Vol rate/Area] mL/min/{1.73_m2} Normal >60 [facility] [place] Comment on above: Order Comment: No: D o not add to previous draw Result Comment: Calc ulation may not be valid for patients over 70 years Performed By: #### 4 1000, 28647, 40722, 27171, 93801, 95768, 02435 #### [facility] [address] [place] [address], [place] GFR/1.73 sq M predicted among non-blacks MDRD (S/P/Bld) [Vol rate/Area] mL/min/{1.73_m2} Normal >60 [facility] [place] Comment on above: Order Comment: No: D o not add to previous draw Result Comment: Calc ulation may not be valid for patients over 70 years Performed By: #### 4 1000, 06037, 44373, 07363, 46702, 22566, 48348 #### [facility] [address] [place] [address], [place] Glucose [Mass/Vol] 80 mg/dL Normal 70-100 [facility] Comment on above: Order Comment: No: D o not add to previous draw Performed By: #### 4 1000, 94059, 60537, 16329, 71605, 59111, 11394 #### [facility] [address] [place] [address], [place] Potassium [Moles/Vol] 3.9 mmol/L Normal 3.5-5.1 [facility] [place] Comment on above: Order Comment: No: D o not add to previous draw Performed By: #### 4 1000, 36100, 90287, 29946, 20130, 66959, 63750 #### [facility] [address] [place] [address], [place] Sodium [Moles/Vol] 139 mmol/L Normal 136-145 The [facility] Comment on above: Order Comment: No: D o not add to previous draw Performed By: #### 4 1000, 34597, 96776, 63110, 66848, 76673, 45420 #### [facility] [address] [place] [address], [place] Urea nitrogen [Mass/Vol] 10 mg/dL Normal 7-25 [facility] [place] Comment on above: Order Comment: No: D o not add to previous draw Performed By: #### 4 1000, 21879, 84617, 26827, 89143, 88528, 58315 #### [facility] [address] [place] [address], [facility] C REACTIVE PROTEINon 019 CRP [Mass/Vol] 19.7 mg/L High 0.0-7.0 The [facility] Comment on above: Order Comment: No: D o not add to previous draw Performed By: #### 4 1000, 11080, 53308, 60154, 65193, 93967, 40404 #### [facility] [address] CBC W/DIFFon 07-15-2019 ABS BASOPHILS 0.0 10*3/uL Normal 0.0-0.2 The [facility] Comment on above: Order Comment: No: D o not add to previous draw Performed By: #### 4 1000, 24798, 74765, 55470, 15201, 08018, 79433 #### [facility] [address] ABS NEUTROPHILS 7.9 10*3/uL High 1.6-7.6 The [facility] Comment on above: Order Comment: No: D o not add to previous draw Performed By: #### 4 1000, 09527, 71231, 19165, 48710, 97941, 50224 #### [facility] [address] [place] [address], [facility] Basophils/100 WBC (Bld) 0.0 % Normal 0.0-1.0 [facility] [place] Comment on above: Order Comment: No: D o not add to previous draw Performed By: #### 4 1000, 59413, 18419, 35374, 26707, 59298, 66724 #### [facility] [address] [place] [address], [facility] Eosinophils (Bld) [#/Vol] 0.8 10*3/uL High 0.0-0.5 [facility] [place] Comment on above: Order Comment: No: D o not add to previous draw Performed By: #### 4 1000, 95737, 94700, 38561, 04503, 84782, 05806 #### [facility] [address] [address], [facility] Eosinophils/100 WBC (Bld) 7.2 % High 0.0-6.0 [facility] [place] Comment on above: Order Comment: No: D o not add to previous draw Performed By: #### 4 1000, 17521, 61996, 87995, 17757, 84612, 35216 #### [facility] [address] Erythrocyte distribution width (RBC) [Ratio] 15.9 % High 11.5-15.0 [facility] [place] Comment on above: Order Comment: No: D o not add to previous draw Performed By: #### 4 1000, 87944, 91497, 47489, 83289, 06156, 51589 #### [facility] [address] [place] [address], [facility] GIANT PLATELETS Present Normal The [facility] Comment on above: Order Comment: No: D o not add to previous draw Performed By: #### 4 1000, 05885, 33406, 67268, 31393, 31027, 51453 #### [facility] [address] [place] [address], [facility] Hematocrit (Bld) [Volume fraction] 27.0 % Low 36.0-45.0 [facility] [place] Comment on above: Order Comment: No: D o not add to previous draw Performed By: #### 4 1000, 04797, 83067, 35840, 55352, 44128, 81099 #### [facility] [address] Hemoglobin (Bld) [Mass/Vol] 8.5 g/dL Low 12.0-15.0 [facility] [place] Comment on above: Order Comment: No: D o not add to previous draw Performed By: #### 4 1000, 23798, 81618, 48812, 60721, 82003, 18305 #### [facility] [address] [place] [address], [facility] Lymphocytes (Bld) [#/Vol] 2.1 10*3/uL Normal 1.2-4.0 The [facility] [place] Comment on above: Order Comment: No: D o not add to previous draw Performed By: #### 4 1000, 72579, 71600, 71533, 01024, 28924, 67531 #### [facility] [address] [place] [address], [facility] Lymphocytes/100 WBC (Bld) 18.0 % Low 20.0-45.0 [facility] [place] Comment on above: Order Comment: No: D o not add to previous draw Performed By: #### 4 1000, 66036, 56689, 27857, 14397, 07986, 21978 #### [facility] [address] [place] [address], [facility] MCH (RBC) [Entitic mass] 27.1 pg Normal 27.0-33.0 [facility] [place] Comment on above: Order Comment: No: D o not add to previous draw Performed By: #### 4 1000, 75402, 97163, 29890, 03085, 82617, 66053 #### [facility] [address] [place] [id number], [facility] MCHC (RBC) [Mass/Vol] 31.5 g/dL Low 32.0-35.0 The [facility] [place] Comment on above: Order Comment: No: D o not add to previous draw Performed By: #### 4 1000, 54817, 75388, 57233, 03151, 07232, 27069 #### [facility] [address] [place] [address], [facility] MCV (RBC) [Entitic vol] 86.0 fL Normal 82.0-98.0 [facility] [place] Comment on above: Order Comment: No: D o not add to previous draw Performed By: #### 4 1000, 84061, 10410, 17719, 75775, 08671, 68225 #### [facility] [address] [place] [place] [address], [facility] Monocytes (Bld) [#/Vol] 1.0 10*3/uL Normal 0.1-1.0 The [facility] [place] Comment on above: Order Comment: No: D o not add to previous draw Performed By: #### 4 1000, 05810, 25404, 27658, 94359, 71394, 30133 #### [facility] [address] [place] [address], [facility] MONOS 8.1 % Normal 5.0-12.0 The [facility] [place] Comment on above: Order Comment: No: D o not add to previous draw Performed By: #### 4 1000, 59063, 22143, 37386, 91741, 02106, 34061 #### [facility] [address] [place] [address], [facility] Neutrophils/100 WBC (Bld) 66.7 % Normal 40.0-72.0 The [facility] [place] Comment on above: Order Comment: No: D o not add to previous draw Performed By: #### 4 1000, 78784, 44661, 12079, 86019, 25768, 10812 #### [facility] [address] [place] [place] [address], [facility] Nucleated RBC/100 WBC (Bld) [Ratio] 0 % Normal 0-0 [facility] [place] Comment on above: Order Comment: No: D o not add to previous draw Performed By: #### 4 1000, 73657, 48242, 04580, 63867, 61371, 37299 #### [facility] [address] [place] [address], [facility] PLAT CNT 888 10*3/uL High 150-400 The [facility] Comment on above: Order Comment: No: D o not add to previous draw Performed By: #### 4 1000, 00334, 29084, 86628, 07833, 41193, 69887 #### [facility] [address] [place] [address], [facility] RBC (Bld) [#/Vol] 3.14 10*6/uL Low 3.80-5.00 [facility] Comment on above: Order Comment: No: D o not add to previous draw Performed By: #### 4 1000, 86905, 99527, 45450, 11689, 09128, 18193 #### [facility] [address] WBC (Bld) [#/Vol] 11.78 10*3/uL High 4.00-10.60 [facility] Comment on above: Order Comment: No: D o not add to previous draw Performed By: #### 4 1000, 18442, 90881, 78023, 35632, 07933, 12949 #### [facility] [address] MAGNESIUM BLOODon 07-15-2019 Magnesium [Mass/Vol] 1.6 mg/dL Low 1.9-2.7 [facility] Comment on above: Order Comment: No: D o not add to previous draw Performed By: #### 4 1000, 40988, 86248, 41781, 76156, 38894, 32606 #### [facility] [address] Operative Reporton 9 Operative Report MR#: [id number] [facility] Pt. Name: Emy Cheatham Room #: [id number] Discharge Date: Birthdate: 1945 OPERATIVE REPORT DATE [...] the plate and had surgery done in [place], where the plate was removed and she [...] Ca MD Date Trans: 07/15/2019 01:09 Yudelka/anibal [id number] cc: Nasreen Mary M.D. [address] [place] [id number] [place] [facility] SEDIMENTATION RATEon 019 SED RATE 54 mm/hr High 0-20 [facility] [place] Comment on above: Order Comment: No: D o not add to previous draw Performed By: #### 4 1000, 34406, 72185, 76170, 01419, 37425, 89077 #### [facility] [address] [place] [address], [facility] BASIC METABOLIC PANELon 07-04 Calcium [Mass/Vol] 8.5 mg/dL Low 8.6-10.[address] [facility] Comment on above: Order Comment: No: D o not add to previous draw Performed By: #### 4 1000, 49072, 32061, 41957, 05765, 23409, 58123 #### [facility] [address] [place] [address], [facility] Chloride [Moles/Vol] 105 mmol/L Normal 98-107 [facility] [place] Comment on above: Order Comment: No: D o not add to previous draw Performed By: #### 4 1000, 37567, 39278, 75452, 11826, 16988, 90687 #### [facility] [address] [place] [address], [place] CO2 [Moles/Vol] 21 mmol/L Normal 21-31 The [facility] Comment on above: Order Comment: No: D o not add to previous draw Performed By: #### 4 1000, 89339, 96303, 69928, 67945, 43573, 37274 #### [facility] [address] [place] [address], [facility] Creatinine [Mass/Vol] 0.70 mg/dL Normal 0.60-1.20 [facility] Comment on above: Order Comment: No: D o not add to previous draw Performed By: #### 4 1000, 44721, 10070, 93918, 59019, 19113, 89842 #### [facility] [address] [place] [address], [facility] GFR/1.73 sq M predicted among blacks MDRD (S/P/Bld) [Vol rate/Area] mL/min/{1.73_m2} Normal >60 [facility] Comment on above: Order Comment: No: D o not add to previous draw Result Comment: Calc ulation may not be valid for patients over 70 years Performed By: #### 4 1000, 22778, 25718, 46931, 40539, 35197, 41095 #### [facility] [address] [place] [address], [place] GFR/1.73 sq M predicted among non-blacks MDRD (S/P/Bld) [Vol rate/Area] mL/min/{1.73_m2} Normal >60 The [facility] Comment on above: Order Comment: No: D o not add to previous draw Result Comment: Calc ulation may not be valid for patients over 70 years Performed By: #### 4 1000, 76356, 43052, 20531, 59125, 23408, 58075 #### [facility] [address] [place] [address], [place] Glucose [Mass/Vol] 120 mg/dL High 70-100 The [facility] Comment on above: Order Comment: No: D o not add to previous draw Performed By: #### 4 1000, 00959, 39345, 45485, 06321, 13043, 54314 #### [facility] [address] [place] [address], [place] Potassium [Moles/Vol] 4.0 mmol/L Normal 3.5-5.1 [facility] Comment on above: Order Comment: No: D o not add to previous draw Performed By: #### 4 1000, 01181, 28654, 45609, 08782, 84647, 21112 #### [facility] [address] [place] [address], [place] Sodium [Moles/Vol] 136 mmol/L Normal 136-145 The [facility] Comment on above: Order Comment: No: D o not add to previous draw Performed By: #### 4 1000, 92606, 65510, 95573, 93433, 16270, 29580 #### [facility] [address] [place] [address], [place] Urea nitrogen [Mass/Vol] 10 mg/dL Normal 7-25 [facility] Comment on above: Order Comment: No: D o not add to previous draw Performed By: #### 4 1000, 26163, 92877, 69508, 89875, 59019, 88462 #### [facility] [address] [place] [address], [place] C REACTIVE PROTEINon 11-11-2 019 CRP [Mass/Vol] 26.5 mg/L High 0.0-7.0 The [facility] Comment on above: Order Comment: No: D o not add to previous draw Performed By: #### 4 1000, 51722, 87084, 90586, 66018, 29841, 85290 #### [facility] [address] CBC W/DIFFon 07-14-2019 ABS BASOPHILS 0.1 10*3/uL Normal 0.0-0.2 The [facility] Comment on above: Order Comment: No: D o not add to previous draw Performed By: #### 4 1000, 31871, 89130, 90523, 68416, 05776, 69001 #### [facility] [address] ABS IMM GRANS 1.2 10*3/uL High 0.0-0.2 The [facility] Comment on above: Order Comment: No: D o not add to previous draw Performed By: #### 4 1000, 01125, 07201, 61050, 58208, 65221, 13801 #### [facility] [address] ABS NEUTROPHILS 6.0 10*3/uL Normal 1.6-7.6 The [facility] Comment on above: Order Comment: No: D o not add to previous draw Performed By: #### 4 1000, 54616, 46737, 06942, 67442, 29215, 56274 #### [facility] [address] [place] [address], [facility] Basophils/100 WBC (Bld) 0.8 % Normal 0.0-1.0 The [facility] Comment on above: Order Comment: No: D o not add to previous draw Performed By: #### 4 1000, 32309, 04638, 12134, 66304, 86799, 23515 #### [facility] [address] [place] [address], [facility] Eosinophils (Bld) [#/Vol] 0.7 10*3/uL High 0.0-0.5 [facility] Comment on above: Order Comment: No: D o not add to previous draw Performed By: #### 4 1000, 37950, 58458, 91194, 40633, 44438, 24763 #### [facility] [address] [place] [address], [facility] Eosinophils/100 WBC (Bld) 6.8 % High 0.0-6.0 [facility] Comment on above: Order Comment: No: D o not add to previous draw Performed By: #### 4 1000, 12849, 65987, 56560, 73425, 42465, 43782 #### [facility] [address] [place] [address], [facility] Erythrocyte distribution width (RBC) [Ratio] 15.6 % High 11.5-15.0 [facility] Comment on above: Order Comment: No: D o not add to previous draw Performed By: #### 4 1000, 11241, 46284, 10133, 66376, 00560, 38427 #### [facility] [address] [place] [address], [facility] Hematocrit (Bld) [Volume fraction] 31.9 % Low 36.0-45.0 The [facility] Comment on above: Order Comment: No: D o not add to previous draw Performed By: #### 4 1000, 21687, 13769, 67811, 28247, 00276, 07221 #### [facility] [address] [place] [address], [facility] Hemoglobin (Bld) [Mass/Vol] 9.7 g/dL Low 12.0-15.0 [facility] Comment on above: Order Comment: No: D o not add to previous draw Performed By: #### 4 1000, 01047, 37916, 64000, 56063, 53399, 20812 #### [facility] [address] [place] [address], [facility] IMM PLATELET FRAC 1.1 % Normal 0.8-6.3 The [facility] Comment on above: Order Comment: No: D o not add to previous draw Performed By: #### 4 1000, 29528, 69464, 05197, 38872, 23319, 01458 #### [facility] [address] [address], [facility] IMMATURE GRANS 10.5 % High 0.0-1.0 [facility] Comment on above: Order Comment: No: D o not add to previous draw Performed By: #### 4 1000, 30247, 60377, 61713, 12031, 05286, 33882 #### [facility] [address] [place], [place] [address], [facility] Lymphocytes (Bld) [#/Vol] 2.4 10*3/uL Normal 1.2-4.0 The [facility] Comment on above: Order Comment: No: D o not add to previous draw Performed By: #### 4 1000, 80007, 09005, 87578, 57175, 99111, 00020 #### [facility] [address] [place] [place] [address], [facility] Lymphocytes/100 WBC (Bld) 21.8 % Normal 20.0-45.0 [facility] Comment on above: Order Comment: No: D o not add to previous draw Performed By: #### 4 1000, 88689, 90165, 46110, 34099, 32266, 41649 #### [facility] [address] [place] [address], [facility] MCH (RBC) [Entitic mass] 26.6 pg Low 27.0-33.0 [facility] Comment on above: Order Comment: No: D o not add to previous draw Performed By: #### 4 1000, 11119, 13442, 92993, 17248, 74527, 52695 #### [facility] [address] [place] [address], [facility] MCHC (RBC) [Mass/Vol] 30.4 g/dL Low 32.0-35.0 [facility] Comment on above: Order Comment: No: D o not add to previous draw Performed By: #### 4 1000, 48035, 82156, 46954, 45606, 55626, 16205 #### [facility] [address] [place] [id number], [facility] MCV (RBC) [Entitic vol] 87.4 fL Normal 82.0-98.0 [facility] Comment on above: Order Comment: No: D o not add to previous draw Performed By: #### 4 1000, 92455, 99680, 41213, 49784, 82983, 14091 #### [facility] [address] [place] [address], [facility] Monocytes (Bld) [#/Vol] 0.6 10*3/uL Normal 0.1-1.0 [facility] Comment on above: Order Comment: No: D o not add to previous draw Performed By: #### 4 1000, 23517, 95995, 48519, 13632, 28017, 44289 #### [facility] [address] [place] [address], [facility] MONOS 5.4 % Normal 5.0-12.0 [facility] Comment on above: Order Comment: No: D o not add to previous draw Performed By: #### 4 1000, 17931, 96219, 83278, 56283, 88082, 31930 #### [facility] [address] [place] [id number], [facility] Neutrophils/100 WBC (Bld) 54.7 % Normal 40.0-72.0 [facility] Comment on above: Order Comment: No: D o not add to previous draw Performed By: #### 4 1000, 38302, 78981, 09624, 64928, 85223, 02042 #### [facility] [address] [place] [address], [facility] Nucleated RBC/100 WBC (Bld) [Ratio] 0 % Normal 0-0 [facility] Comment on above: Order Comment: No: D o not add to previous draw Performed By: #### 4 1000, 55603, 19242, 37047, 23184, 83549, 51395 #### [facility] [address] [place] [address], [facility] PLAT CNT 964 10*3/uL High 150-400 The [facility] Comment on above: Order Comment: No: D o not add to previous draw Result Comment: RESU LTS CHECKED Performed By: #### 4 1000, 56317, 83656, 54637, 89683, 96086, 19633 #### [facility] [address] [place] [address], [facility] RBC (Bld) [#/Vol] 3.65 10*6/uL Low 3.80-5.00 The [facility] Comment on above: Order Comment: No: D o not add to previous draw Performed By: #### 4 1000, 78447, 31781, 46520, 08583, 97684, 44118 #### [facility] [address] [place] [address], [facility] WBC (Bld) [#/Vol] 10.93 10*3/uL High 4.00-10.60 [facility] Comment on above: Order Comment: No: D o not add to previous draw Performed By: #### 4 1000, 33474, 08143, 81225, 46161, 64278, 12975 #### [facility] [address] [place] [address], [facility] HEMOGLOBINon 07-14-2019 Hemoglobin (Bld) [Mass/Vol] 7.0 g/dL Low 12.0-15.0 [facility] Comment on above: Order Comment: No: D o not add to previous draw Performed By: #### 4 1000, 13828, 08117, 23725, 62485, 77223, 36026 #### [facility] [address] [place] [address], [facility] MAGNESIUM BLOODon 07-14-2019 Magnesium [Mass/Vol] 2.0 mg/dL Normal 1.9-2.7 [facility] Comment on above: Order Comment: No: D o not add to previous draw Performed By: #### 4 1000, 78891, 58353, 40247, 58638, 65720, 76592 #### [facility] [address] [place] [address], [facility] RBC'S 1 UNITon 07-14-2019 CROSSMATCH INTERP 1 COMP Normal The [facility] Comment on above: Order Comment: No: D o not add to previous draw Performed By: #### 4 1000, 06413, 82219, 73609, 72875, 36014, 72901 #### [facility] [address] [place] [address], [facility] PRODUCT CODE 1 E0336 Normal [facility] Comment on above: Order Comment: No: D o not add to previous draw Performed By: #### 4 1000, 38081, 01652, 01188, 06507, 83289, 39618 #### [facility] [address] [place] [address], [facility] PRODUCT STATUS 1 PT Normal The [facility] Comment on above: Order Comment: No: D o not add to previous draw Result Comment: Resu lt changed by IF on 07/14/2019 03:35. The previous value was XM. Result changed by IF on 07/15/2019 00:30. The previous value was IS. Performed By: #### 4 1000, 88962, 81347, 59277, 26149, 08420, 92606 #### [facility] [address] [place] [address], [facility] UNIT ABO 1 O Normal [facility] Comment on above: Order Comment: No: D o not add to previous draw Performed By: #### 4 1000, 53840, 94909, 83620, 79788, 04416, 03739 #### [facility] [address] [place] [address], [facility] UNIT ID 1 [id number] Normal [facility] Comment on above: Order Comment: No: D o not add to previous draw Performed By: #### 4 1000, 24724, 84567, 90046, 63490, 87572, 37630 #### [facility] [address] [place] [address], [facility] UNIT RH 1 Negative Normal [facility] Comment on above: Order Comment: No: D o not add to previous draw Performed By: #### 4 1000, 48156, 84973, 42196, 58660, 05425, 80210 #### [facility] [address] [place] [address], [facility] SEDIMENTATION RATEon 07-14-2 019 SED RATE 48 mm/hr High 0-20 [facility] Comment on above: Order Comment: No: D o not add to previous draw Performed By: #### 4 1000, 92990, 46482, 50778, 15222, 27657, 94082 #### [facility] [address] [place] [address], [facility] BASIC METABOLIC PANELon 11- 0-2018 Calcium [Mass/Vol] 8.5 mg/dL Low 8.6-10.[address] [facility] Comment on above: Order Comment: No: D o not add to previous draw Performed By: #### 4 1000, 77980, 06736, 39560, 87831, 35630, 02843 #### [facility] [address] [place] [id number], [facility] Chloride [Moles/Vol] 101 mmol/L Normal 98-107 [facility] Comment on above: Order Comment: No: D o not add to previous draw Performed By: #### 4 1000, 44878, 97909, 08533, 40740, 94905, 51773 #### [facility] [address] [place] [address], [facility] CO2 [Moles/Vol] 28 mmol/L Normal 21-31 [facility] Comment on above: Order Comment: No: D o not add to previous draw Performed By: #### 4 1000, 77983, 05235, 23074, 06138, 86146, 04378 #### [facility] [address] [place] [address], [facility] Creatinine [Mass/Vol] 0.54 mg/dL Low 0.60-1.20 [facility] Comment on above: Order Comment: No: D o not add to previous draw Performed By: #### 4 1000, 82626, 56998, 46881, 95088, 67158, 02497 #### [facility] [address] [place] [address], [facility] GFR/1.73 sq M predicted among blacks MDRD (S/P/Bld) [Vol rate/Area] mL/min/{1.73_m2} Normal >60 [facility] Comment on above: Order Comment: No: D o not add to previous draw Result Comment: Calc ulation may not be valid for patients over 70 years Performed By: #### 4 1000, 11877, 72663, 25146, 24109, 87127, 27689 #### [facility] [address] [place] [address], [facility] GFR/1.73 sq M predicted among non-blacks MDRD (S/P/Bld) [Vol rate/Area] mL/min/{1.73_m2} Normal >60 [facility] Comment on above: Order Comment: No: D o not add to previous draw Result Comment: Calc ulation may not be valid for patients over 70 years Performed By: #### 4 1000, 54321, 45784, 06036, 86414, 42838, 01208 #### [facility] [address] [place] [address], [place] Glucose [Mass/Vol] 92 mg/dL Normal 70-100 The [facility] Comment on above: Order Comment: No: D o not add to previous draw Performed By: #### 4 1000, 15024, 55624, 49223, 01381, 60108, 05962 #### [facility] [address] [place] [address], [facility] Potassium [Moles/Vol] 3.6 mmol/L Normal 3.5-5.1 [facility] Comment on above: Order Comment: No: D o not add to previous draw Performed By: #### 4 1000, 05037, 34683, 91229, 22262, 69113, 86475 #### [facility] [address] [place] [address], [facility] Sodium [Moles/Vol] 134 mmol/L Low 136-145 [facility] Comment on above: Order Comment: No: D o not add to previous draw Performed By: #### 4 1000, 15454, 79893, 60006, 23184, 30094, 25930 #### [facility] [address] [place] [address], [facility] Urea nitrogen [Mass/Vol] 10 mg/dL Normal 7-25 [facility] Comment on above: Order Comment: No: D o not add to previous draw Performed By: #### 4 1000, 01136, 66060, 00183, 49266, 26878, 84887 #### [facility] [address] [place] [address], [place] C REACTIVE PROTEINon 11-10-2 019 CRP [Mass/Vol] 59.6 mg/L High 0.0-7.0 The [facility] Comment on above: Order Comment: No: D o not add to previous draw Performed By: #### 4 1000, 80320, 67498, 60335, 52524, 80863, 61162 #### [facility] [address] [place] [address], [place] CBC W/DIFFon 07-13-2019 ABS BASOPHILS 0.0 10*3/uL Normal 0.0-0.2 [facility] Comment on above: Order Comment: No: D o not add to previous draw Performed By: #### 4 1000, 70037, 14629, 68559, 92899, 39173, 98615 #### [facility] [address] [place] [address], [facility] ABS NEUTROPHILS 9.5 10*3/uL High 1.6-7.6 The [facility] Comment on above: Order Comment: No: D o not add to previous draw Performed By: #### 4 1000, 79712, 20249, 24763, 39940, 44020, 71313 #### [facility] [address] [place] [address], [facility] Basophils/100 WBC (Bld) 0.0 % Normal 0.0-1.0 [facility] Comment on above: Order Comment: No: D o not add to previous draw Performed By: #### 4 1000, 40640, 41348, 35955, 64039, 95600, 37895 #### [facility] [address] [place] [address], [facility] Eosinophils (Bld) [#/Vol] 0.5 10*3/uL Normal 0.0-0.5 [facility] Comment on above: Order Comment: No: D o not add to previous draw Performed By: #### 4 1000, 25543, 10995, 39719, 46244, 01885, 46302 #### [facility] [address] [place] [address], [facility] Eosinophils/100 WBC (Bld) 3.6 % Normal 0.0-6.0 [facility] Comment on above: Order Comment: No: D o not add to previous draw Performed By: #### 4 1000, 62308, 08824, 33008, 00044, 88159, 31448 #### [facility] [address] Erythrocyte distribution width (RBC) [Ratio] 14.6 % Normal 11.5-15.0 [facility] Comment on above: Order Comment: No: D o not add to previous draw Performed By: #### 4 1000, 21341, 27757, 78652, 80374, 45755, 02686 #### [facility] [address] [place] [address], [facility] GIANT PLATELETS Present Normal [facility] Comment on above: Order Comment: No: D o not add to previous draw Performed By: #### 4 1000, 09652, 67508, 67275, 21124, 72560, 07391 #### [facility] [address] [place] [address], [facility] Hematocrit (Bld) [Volume fraction] 25.5 % Low 36.0-45.0 [facility] Comment on above: Order Comment: No: D o not add to previous draw Performed By: #### 4 1000, 05532, 91784, 90175, 46623, 71800, 95607 #### [facility] [address] [place] [address], [facility] Hemoglobin (Bld) [Mass/Vol] 7.7 g/dL Low 12.0-15.0 [facility] Comment on above: Order Comment: No: D o not add to previous draw Performed By: #### 4 1000, 89294, 91250, 15839, 95181, 40272, 48096 #### [facility] [address] [place] [address], [facility] Lymphocytes (Bld) [#/Vol] 2.1 10*3/uL Normal 1.2-4.0 [facility] Comment on above: Order Comment: No: D o not add to previous draw Performed By: #### 4 1000, 17421, 58699, 93945, 84871, 84791, 04173 #### [facility] [address] Lymphocytes/100 WBC (Bld) 16.4 % Low 20.0-45.0 [facility] Comment on above: Order Comment: No: D o not add to previous draw Performed By: #### 4 1000, 66399, 28094, 55872, 96856, 05821, 96087 #### [facility] [address] [place] [address], [facility] MCH (RBC) [Entitic mass] 26.9 pg Low 27.0-33.0 [facility] Comment on above: Order Comment: No: D o not add to previous draw Performed By: #### 4 1000, 86455, 96709, 63754, 36013, 00441, 23120 #### [facility] [address] MCHC (RBC) [Mass/Vol] 30.2 g/dL Low 32.0-35.0 [facility] Comment on above: Order Comment: No: D o not add to previous draw Performed By: #### 4 1000, 39227, 00201, 51226, 09094, 62575, 81388 #### [facility] [address] [place] [address], [facility] MCV (RBC) [Entitic vol] 89.2 fL Normal 82.0-98.0 [facility] Comment on above: Order Comment: No: D o not add to previous draw Performed By: #### 4 1000, 97833, 72656, 88684, 20047, 65448, 89190 #### [facility] [address] [place] [address], [facility] METAMYELO 2.7 % High 0.0-0.0 [facility] Comment on above: Order Comment: No: D o not add to previous draw Performed By: #### 4 1000, 59234, 39968, 26881, 59184, 69778, 00218 #### [facility] [address] [place] [address], [facility] Monocytes (Bld) [#/Vol] 0.5 10*3/uL Normal 0.1-1.0 [facility] Comment on above: Order Comment: No: D o not add to previous draw Performed By: #### 4 1000, 24281, 95909, 38762, 35914, 50087, 78278 #### [facility] [address] MONOS 3.6 % Low 5.0-12.0 [facility] Comment on above: Order Comment: No: D o not add to previous draw Performed By: #### 4 1000, 21098, 44383, 15101, 77528, 47197, 25799 #### [facility] [address] Neutrophils/100 WBC (Bld) 73.7 % High 40.0-72.0 [facility] Comment on above: Order Comment: No: D o not add to previous draw Performed By: #### 4 1000, 80712, 33840, 24996, 95846, 47863, 25301 #### [facility] [address] NRBC SCAN Present Normal [facility] Comment on above: Order Comment: No: D o not add to previous draw Performed By: #### 4 1000, 74892, 16237, 70447, 80459, 94268, 39799 #### [facility] [address] [place] [address], [facility] Nucleated RBC/100 WBC (Bld) [Ratio] 0 % Normal 0-0 [facility] Comment on above: Order Comment: No: D o not add to previous draw Performed By: #### 4 1000, 18957, 53697, 46524, 36297, 44181, 70914 #### [facility] [address] [place] [address], [facility] PLAT CNT 852 10*3/uL High 150-400 The [facility] Comment on above: Order Comment: No: D o not add to previous draw Performed By: #### 4 1000, 08684, 85585, 73074, 99568, 32215, 99832 #### [facility] [address] [place] [id number], [facility] RBC (Bld) [#/Vol] 2.86 10*6/uL Low 3.80-5.00 [facility] Comment on above: Order Comment: No: D o not add to previous draw Performed By: #### 4 1000, 92448, 62661, 53549, 46643, 59846, 24898 #### [facility] [address] [place] [address], [facility] WBC (Bld) [#/Vol] 12.94 10*3/uL High 4.00-10.60 [facility] Comment on above: Order Comment: No: D o not add to previous draw Performed By: #### 4 1000, 92620, 91011, 09803, 58335, 77933, 07820 #### [facility] [address] [place] [address], [facility] ABS BASOPHILS 0.0 10*3/uL Normal 0.0-0.2 The [facility] Comment on above: Order Comment: No: D o not add to previous draw Performed By: #### 4 1000, 87689, 22478, 88479, 50248, 18004, 47608 #### [facility] [address] [place] [address], [place] ABS NEUTROPHILS 9.9 10*3/uL High 1.6-7.6 The [facility] Comment on above: Order Comment: No: D o not add to previous draw Performed By: #### 4 1000, 56314, 79116, 02151, 74794, 29765, 95750 #### [facility] [address] [place] [address], [place] Basophils/100 WBC (Bld) 0.0 % Normal 0.0-1.0 [facility] Comment on above: Order Comment: No: D o not add to previous draw Performed By: #### 4 1000, 25638, 66058, 68841, 26207, 04325, 51798 #### [facility] [address] [place] [address], [facility] Eosinophils (Bld) [#/Vol] 0.1 10*3/uL Normal 0.0-0.5 [facility] Comment on above: Order Comment: No: D o not add to previous draw Performed By: #### 4 1000, 42412, 09137, 88010, 29507, 33605, 97084 #### [facility] [address] [place] [address], [facility] Eosinophils/100 WBC (Bld) 0.9 % Normal 0.0-6.0 [facility] Comment on above: Order Comment: No: D o not add to previous draw Performed By: #### 4 1000, 48765, 36565, 01467, 97218, 02810, 73326 #### [facility] [address] [place] [address], [facility] Erythrocyte distribution width (RBC) [Ratio] 14.2 % Normal 11.5-15.0 [facility] Comment on above: Order Comment: No: D o not add to previous draw Performed By: #### 4 1000, 85497, 08016, 71006, 97546, 68121, 38087 #### [facility] [address] [place] [address], [facility] GIANT PLATELETS Present Normal [facility] Comment on above: Order Comment: No: D o not add to previous draw Performed By: #### 4 1000, 56972, 47780, 81343, 35640, 71804, 64917 #### [facility] [address] [place] [address], [place] Hematocrit (Bld) [Volume fraction] 22.4 % Low 36.0-45.0 [facility] Comment on above: Order Comment: No: D o not add to previous draw Performed By: #### 4 1000, 29847, 63809, 06424, 60574, 24587, 01953 #### [facility] [address] [place] [address], [facility] Hemoglobin (Bld) [Mass/Vol] 7.0 g/dL Low 12.0-15.0 [facility] Comment on above: Order Comment: No: D o not add to previous draw Performed By: #### 4 1000, 81066, 08250, 63485, 26224, 67361, 37373 #### [facility] [address] [place] [address], [facility] Lymphocytes (Bld) [#/Vol] 1.4 10*3/uL Normal 1.2-4.0 [facility] Comment on above: Order Comment: No: D o not add to previous draw Performed By: #### 4 1000, 62722, 90953, 79834, 08154, 12864, 00551 #### [facility] [address] [place] [address], [facility] Lymphocytes/100 WBC (Bld) 11.9 % Low 20.0-45.0 [facility] Comment on above: Order Comment: No: D o not add to previous draw Performed By: #### 4 1000, 57908, 23524, 09338, 16490, 11537, 84822 #### [facility] [address] [place] [address], [facility] MCH (RBC) [Entitic mass] 27.2 pg Normal 27.0-33.0 [facility] Comment on above: Order Comment: No: D o not add to previous draw Performed By: #### 4 1000, 29919, 77975, 12128, 14496, 76374, 47877 #### [facility] [address] [place] [address], [place] MCHC (RBC) [Mass/Vol] 31.3 g/dL Low 32.0-35.0 [facility] Comment on above: Order Comment: No: D o not add to previous draw Performed By: #### 4 1000, 38130, 76003, 37589, 08715, 34176, 10209 #### [facility] [address] [place] [address], [facility] MCV (RBC) [Entitic vol] 87.2 fL Normal 82.0-98.0 [facility] Comment on above: Order Comment: No: D o not add to previous draw Performed By: #### 4 1000, 87235, 74925, 23335, 92742, 01925, 64415 #### [facility] [address] [place] [address], [facility] Monocytes (Bld) [#/Vol] 0.6 10*3/uL Normal 0.1-1.0 [facility] Comment on above: Order Comment: No: D o not add to previous draw Performed By: #### 4 1000, 58689, 45495, 56770, 02647, 06248, 04012 #### [facility] [address] [place] [address], [facility] MONOS 4.6 % Low 5.0-12.0 [facility] Comment on above: Order Comment: No: D o not add to previous draw Performed By: #### 4 1000, 56101, 41713, 20023, 06177, 41900, 10886 #### [facility] [address] [place] [address], [facility] Neutrophils/100 WBC (Bld) 82.6 % High 40.0-72.0 [facility] Comment on above: Order Comment: No: D o not add to previous draw Performed By: #### 4 1000, 86802, 03292, 70405, 20457, 49426, 31386 #### [facility] [address] [place] [id number], [facility] Nucleated RBC/100 WBC (Bld) [Ratio] 0 % Normal 0-0 The [facility] Comment on above: Order Comment: No: D o not add to previous draw Performed By: #### 4 1000, 83999, 23865, 83139, 46072, 99140, 73499 #### [facility] [address] [place] [address], [facility] PLAT CNT 887 10*3/uL High 150-400 The [facility] Comment on above: Order Comment: No: D o not add to previous draw Performed By: #### 4 1000, 04002, 96571, 93605, 84768, 56654, 79856 #### [facility] [address] [place] [address], [facility] RBC (Bld) [#/Vol] 2.57 10*6/uL Low 3.80-5.00 [facility] Comment on above: Order Comment: No: D o not add to previous draw Performed By: #### 4 1000, 07228, 63354, 72488, 79907, 01977, 12119 #### [facility] [address] [place] [address], [facility] WBC (Bld) [#/Vol] 11.99 10*3/uL High 4.00-10.60 [facility] Comment on above: Order Comment: No: D o not add to previous draw Performed By: #### 4 1000, [id number], 30367, 35509, 55905, 24373, 72790 #### [facility] [address] [place] [address], [facility] MAGNESIUM BLOODon 07-13-2019 Magnesium [Mass/Vol] 1.7 mg/dL Low 1.9-2.7 [facility] Comment on above: Order Comment: No: D o not add to previous draw Performed By: #### 4 1000, 39583, 21770, 69303, 53860, 07636, 82841 #### [facility] [address] [place] [address], [facility] SEDIMENTATION RATEon 11-10-2 019 SED RATE 65 mm/hr High 0-20 [facility] Comment on above: Order Comment: No: D o not add to previous draw Performed By: #### 4 1000, 03354, 59199, 32752, 94106, 92379, 21762 #### [facility] [address] [place], [place] [id number] [place] [address] *ANAEROBIC CULTUREon 019 *ANAEROBIC CULTURE Clinical Report: (D) Specimen/Source: BONE/INTRAOP SPEC Collected: 07/12/2019 14:33 Status: Final Last Updated: 07/17/2019 08:02 (1) 3. RIGHT HIP BONE CULT RES (Final) No Anaerobes Isolated 5 Days Normal [facility] Comment on above: Order Comment: No: D o not add to previous draw Performed By: #### 4 1000, 04257, 57983, 01465, 59242, 56109, 81685 #### [facility] [address] [facility] [address] *ANAEROBIC CULTURE Clinical Report: (D) Specimen/Source: TISSUE/INTRAOP SPEC Collected: 07/12/2019 14:06 Status: Final Last Updated: 07/18/2019 15:11 (1) 2. RIGHT HIP ISO (Final) No Anaerobes Isolated 5 Days Normal [facility] Comment on above: Order Comment: No: D o not add to previous draw Performed By: #### 4 1000, 53008, 61611, 63320, 32719, 66140, 48103 #### [facility] [address] *ANAEROBIC CULTURE Clinical Report: (D) Specimen/Source: SWAB/INTRAOP SPEC Collected: 07/12/2019 14:03 Status: Final Last Updated: 07/17/2019 08:00 (1) 1. RIGHT HIP SWAB ISO (Final) No Anaerobes Isolated 5 Days Normal [facility] Comment on above: Order Comment: No: D o not add to previous draw Performed By: #### 4 1000, 39497, 92479, 50869, 59353, 71418, 70645 #### [facility] [address] [place], [place] [id number] [place] [address] *MRSA/MSSA DNA NASALon 07-12 *MRSA/MSSA DNA NASAL Clinical Report: (D ) Specimen: NASAL SWAB Collected: 07/12/2019 11:45 Status: Final Last Updated: 07/14/2019 10:45 MSSA DNA (Final) Negative MRSA DNA (Final) Negative Normal [facility] Comment on above: Performed By: #### 4 1000, 06866, 14197, 68725, 17829, 76070, 54791 #### [facility] [address] [facility] [place] [place] [id number] [place] [address] *TISSUE CULTUREon 07-12-2019 *TISSUE CULTURE Clinical Report: [...] RN (4CD) 10:58 a.m. 07/13/19 Normal [facility] Comment on above: Order Comment: No: D o not add to previous draw Performed By: #### 4 1000, 03156, 85558, 58274, 40161, 07169, 67300 #### [facility] [address] [place] [place] [id number] [place] [address] *TISSUE CULTURE Clinical Report: (D) Specimen/Source: TISSUE/INTRAOP [...] Oneil RN (4CD) 10:58 a.m. 07/13/19 Normal [facility] Comment on above: Order Comment: No: D o not add to previous draw Performed By: #### 4 1000, 82593, 76408, 15160, 93963, 84344, 22139 #### [facility] [address] *WOUND CULTUREon 07-12-2019 *WOUND CULTURE Clinical [...] <=1 Susceptible CEFAZOLIN (CZ) <=1 Susceptible CEFTRIAXONE (TRAINING AND DEVELOPMENT PROFESSIONAL) <=0.5 Susceptible CIPROFLOXACIN (CIP) <=0.5 Susceptible ESBL (-/+) (ESBL) Negative GENTAMICIN (GM) <=1 Susceptible PIP/TAZO (TZP) <=2/4 Susceptible TOBRAMYCIN (TOB) 1 Susceptible TRIMETH/SULFA (SXT) <=0.5/9.5 Susceptible Normal [facility] Comment on above: Order Comment: No: D o not add to previous draw Performed By: #### 4 1000, 79968, 10115, 96248, 81543, 50314, 57704 #### [facility] [address] [place] [address], [facility] APTTon 11-09-2019 aPTT Coag (Bld) [Time] 45.0 s High 25.0-35.0 [facility] Comment on above: Order Comment: No: D [...] THIS PURPOSE. Performed By: #### 4 1000, 48526, 17727, 78905, 44152, 84808, 34333 #### [facility] [address] [place] [address], [facility] BASIC METABOLIC PANELon 11-0 Calcium [Mass/Vol] 8.7 mg/dL Normal 8.6-10.[address] [facility] Comment on above: Order Comment: No: D o not add to previous draw Performed By: #### 5 0103, 02386 #### [facility] [address] [place] [address], [facility] Chloride [Moles/Vol] 101 mmol/L Normal 98-107 [facility] Comment on above: Order Comment: No: D o not add to previous draw Performed By: #### 5 102, 11807 #### [facility] [address] [place] [address], [place] CO2 [Moles/Vol] 30 mmol/L Normal 21-31 [facility] Comment on above: Order Comment: No: D o not add to previous draw Performed By: #### 5 010, 19690 #### [facility] [address] [place] [address], [place] Creatinine [Mass/Vol] 0.60 mg/dL Normal 0.60-1.20 [facility] Comment on above: Order Comment: No: D o not add to previous draw Performed By: #### 5 010, 08614 #### [facility] [address] [place] [address], [place] GFR/1.73 sq M predicted among blacks MDRD (S/P/Bld) [Vol rate/Area] mL/min/{1.73_m2} Normal >60 [facility] Comment on above: Order Comment: No: D o not add to previous draw Result Comment: Calc ulation may not be valid for patients over 70 years Performed By: #### 5 0103, 14606 #### [facility] [address] [place] [address], [place] GFR/1.73 sq M predicted among non-blacks MDRD (S/P/Bld) [Vol rate/Area] mL/min/{1.73_m2} Normal >60 [facility] Comment on above: Order Comment: No: D o not add to previous draw Result Comment: Calc ulation may not be valid for patients over 70 years Performed By: #### 5 010, 62167 #### [facility] [address] [place] [address], [place] Glucose [Mass/Vol] 81 mg/dL Normal 70-100 [facility] Comment on above: Order Comment: No: D o not add to previous draw Performed By: #### 5 010, 86937 #### [facility] [address] [place] [address], [place] Potassium [Moles/Vol] 3.5 mmol/L Normal 3.5-5.1 [facility] Comment on above: Order Comment: No: D o not add to previous draw Performed By: #### 5 0103, 96106 #### [facility] [address] [place] [address], [place] Sodium [Moles/Vol] 136 mmol/L Normal 136-145 [facility] Comment on above: Order Comment: No: D o not add to previous draw Performed By: #### 5 010, 00985 #### [facility] [address] Urea nitrogen [Mass/Vol] 10 mg/dL Normal 7-25 [facility] Comment on above: Order Comment: No: D o not add to previous draw Performed By: #### 5 010, 52283 #### [facility] [address] [place] [address], [facility] CBC COMPLETE BLOOD COUNTon 09-11-2018 Erythrocyte distribution width (RBC) [Ratio] 14.3 % Normal 11.5-15.0 [facility] Comment on above: Order Comment: No: D o not add to previous draw Performed By: #### 5 102, 60562 #### [facility] [address] [place] [address], [facility] Hematocrit (Bld) [Volume fraction] 28.3 % Low 36.0-45.0 [facility] Comment on above: Order Comment: No: D o not add to previous draw Performed By: #### 5 102, 05321 #### [facility] [address] [place] [address], [facility] Hemoglobin (Bld) [Mass/Vol] 8.7 g/dL Low 12.0-15.0 [facility] Comment on above: Order Comment: No: D o not add to previous draw Performed By: #### 5 102, 90450 #### [facility] [address] [place] [address], [facility] MCH (RBC) [Entitic mass] 26.9 pg Low 27.0-33.0 [facility] Comment on above: Order Comment: No: D o not add to previous draw Performed By: #### 5 102, 05554 #### [facility] [address] [place] [address], [facility] MCHC (RBC) [Mass/Vol] 30.7 g/dL Low 32.0-35.0 [facility] Comment on above: Order Comment: No: D o not add to previous draw Performed By: #### 5 102, 95774 #### [facility] [address] [place] [address], [facility] MCV (RBC) [Entitic vol] 87.3 fL Normal 82.0-98.0 [facility] Comment on above: Order Comment: No: D o not add to previous draw Performed By: #### 5 102, 90775 #### [facility] [address] [place] [id number], [facility] Nucleated RBC/100 WBC (Bld) [Ratio] 0 % Normal 0-0 [facility] Comment on above: Order Comment: No: D o not add to previous draw Performed By: #### 5 102, 81459 #### [facility] [address] [place] [address], [facility] PLAT CNT 959 10*3/uL High 150-400 [facility] Comment on above: Order Comment: No: D o not add to previous draw Performed By: #### 5 102, 59267 #### [facility] [address] [place] [address], [facility] RBC (Bld) [#/Vol] 3.24 10*6/uL Low 3.80-5.00 [facility] Comment on above: Order Comment: No: D o not add to previous draw Performed By: #### 5 102, 71711 #### [facility] [address] [place] [address], [facility] WBC (Bld) [#/Vol] 7.35 10*3/uL Normal 4.00-10.60 [facility] Comment on above: Order Comment: No: D o not add to previous draw Performed By: #### 5 102, 70933 #### [facility] [address] [place] [address], [facility] Erythrocyte distribution width (RBC) [Ratio] 14.1 % Normal 11.5-15.0 [facility] Comment on above: Order Comment: No: D o not add to previous draw Performed By: #### 5 102, 72582 #### [facility] [address] [place] [address], [facility] Hematocrit (Bld) [Volume fraction] 26.7 % Low 36.0-45.0 [facility] Comment on above: Order Comment: No: D o not add to previous draw Performed By: #### 5 102, 15630 #### [facility] [address] [place] [address], [facility] Hemoglobin (Bld) [Mass/Vol] 8.3 g/dL Low 12.0-15.0 [facility] Comment on above: Order Comment: No: D o not add to previous draw Performed By: #### 5 102, 87552 #### [facility] [address] [place] [address], [facility] MCH (RBC) [Entitic mass] 26.8 pg Low 27.0-33.0 [facility] Comment on above: Order Comment: No: D o not add to previous draw Performed By: #### 5 102, 28834 #### [facility] [address] [place] [address], [facility] MCHC (RBC) [Mass/Vol] 31.1 g/dL Low 32.0-35.0 [facility] Comment on above: Order Comment: No: D o not add to previous draw Performed By: #### 5 102, 44019 #### [facility] [address] [place] [address], [facility] MCV (RBC) [Entitic vol] 86.1 fL Normal 82.0-98.0 [facility] Comment on above: Order Comment: No: D o not add to previous draw Performed By: #### 5 102, 79263 #### [facility] [address] [place] [address], [facility] Nucleated RBC/100 WBC (Bld) [Ratio] 0 % Normal 0-0 [facility] Comment on above: Order Comment: No: D o not add to previous draw Performed By: #### 5 010, 25392 #### [facility] [address] [place] [address], [facility] PLAT CNT 887 10*3/uL High 150-400 [facility] Comment on above: Order Comment: No: D o not add to previous draw Performed By: #### 5 010, 74581 #### [facility] [address] [place] [address], [facility] RBC (Bld) [#/Vol] 3.10 10*6/uL Low 3.80-5.00 [facility] Comment on above: Order Comment: No: D o not add to previous draw Performed By: #### 5 102, 46352 #### [facility] [address] [place] [address], [facility] WBC (Bld) [#/Vol] 8.29 10*3/uL Normal 4.00-10.60 [facility] Comment on above: Order Comment: No: D o not add to previous draw Performed By: #### 5 3, 41601 #### [facility] [address] [place] [address], [facility] CPKon 07-12-2019 CK [Catalytic activity/Vol] 14 U/L Low 30-223 [facility] Comment on above: Performed By: #### 4 1000, 17617, 09256, 25983, 71183, 76466, 75935 #### [facility] [address] [place] [address], [facility] MAGNESIUM BLOODon 07-12-2019 Magnesium [Mass/Vol] 2.1 mg/dL Normal 1.9-2.7 [facility] Comment on above: Order Comment: No: D o not add to previous draw Performed By: #### 4 1000, 03102, 94815, 53966, 21066, 65697, 10928 #### [facility] [address] [facility] [address], [facility] PROTHROMBIN TIMEon 9 INR Coag (PPP) [Relative time] 1.02 {INR} Normal 0.91-1.16 [facility] Comment on above: Order Comment: No: D [...] CHEST 1995;[id number]. Performed By: #### 4 999, 42580, 20488, 33131, 82262, 38546, 92336 #### [facility] [address] [place] [address], [facility] PT Coag (PPP) [Time] 13.4 s Normal 12.3-14.8 [facility] Comment on above: Order Comment: No: D o not add to previous draw Result Comment: ALL RESULTS MUST BE INTERPRETED WITH RESPECT TO BLOOD DRAWING ARTIFACT OR DILUTION ERROR OF ANTICOAGULANT AT THE TIME OF SAMPLING. Performed By: #### 4 1000, 41933, 66067, 35488, 13357, 52127, 22585 #### [facility] [address] [place] [address], [facility] INR Coag (PPP) [Relative time] 1.03 {INR} Normal 0.91-1.16 [facility] Comment on above: Order Comment: No: D [...] CHEST 1995;[id number]. Performed By: #### 5 0103, 58878 #### [facility] [address] [place] [address], [facility] PT Coag (PPP) [Time] 13.5 s Normal 12.3-14.8 [facility] Comment on above: Order Comment: No: D o not add to previous draw Result Comment: ALL RESULTS MUST BE INTERPRETED WITH RESPECT TO BLOOD DRAWING ARTIFACT OR DILUTION ERROR OF ANTICOAGULANT AT THE TIME OF SAMPLING. Performed By: #### 5 0103, 33653 #### [facility] [address] [place] [address], [place] TYPE AND SCREENon 07-12-2019 ABO INTERPRETATION O Normal [facility] Comment on above: Performed By: #### 5 0103, 07901 #### [facility] [address] [place] [address], [place] RH INTERPRETATION Negative Normal [facility] Comment on above: Performed By: #### 5 0103, 64727 #### [facility] [address] [place] [address], [facility] *BLOOD CULTUREon 07-11-2019 Bacteria identified Cx Nom (Bld) Clinical Report: (D) Specimen: BLOOD CULTURE Collected: 07/11/2019 03:05 Status: Final Last Updated: 07/16/2019 07:54 (1) Right ac CULT RES (Final) No Growth Day 5 Normal [facility] Comment on above: Order Comment: Right ac Performed By: #### 3 0313 #### [facility] [address] [place] [address], [facility] Bacteria identified Cx Nom (Bld) Clinical Report: (D) Specimen: BLOOD CULTURE Collected: 07/11/2019 03:04 Status: Final Last Updated: 07/16/2019 07:54 (1) Left wrist CULT RES (Final) No Growth Day 5 Normal [facility] Comment on above: Order Comment: Left wrist Performed By: #### 5 0103, 21015 #### [facility] [address] [place] [address], [facility] BASIC METABOLIC PANELon 110 Calcium [Mass/Vol] 8.6 mg/dL Normal 8.6-10.[address] [facility] Comment on above: Order Comment: No: D o not add to previous draw Performed By: #### 4 1000, 47192, 52351, 48364, 79560, 79232, 86921 #### [facility] [address] [place] [address], [place] Chloride [Moles/Vol] 98 mmol/L Normal 98-107 [facility] Comment on above: Order Comment: No: D o not add to previous draw Performed By: #### 4 1000, 16548, 31943, 62640, 50253, 58832, 79998 #### [facility] [address] [place] [address], [place] CO2 [Moles/Vol] 27 mmol/L Normal 21-31 [facility] Comment on above: Order Comment: No: D o not add to previous draw Performed By: #### 4 1000, 74712, 55742, 87622, 18474, 13495, 68793 #### [facility] [address] [place] [address], [place] Creatinine [Mass/Vol] 0.61 mg/dL Normal 0.60-1.20 [facility] Comment on above: Order Comment: No: D o not add to previous draw Performed By: #### 4 1000, 88438, 00766, 72524, 00705, 02451, 60954 #### [facility] [address] [place] [address], [place] GFR/1.73 sq M predicted among blacks MDRD (S/P/Bld) [Vol rate/Area] mL/min/{1.73_m2} Normal >60 [facility] Comment on above: Order Comment: No: D o not add to previous draw Result Comment: Calc ulation may not be valid for patients over 70 years Performed By: #### 4 1000, 11856, 04055, 53079, 65312, 76677, 74475 #### [facility] [address] [place] [address], [facility] GFR/1.73 sq M predicted among non-blacks MDRD (S/P/Bld) [Vol rate/Area] mL/min/{1.73_m2} Normal >60 [facility] Comment on above: Order Comment: No: D o not add to previous draw Result Comment: Calc ulation may not be valid for patients over 70 years Performed By: #### 4 1000, 46476, 00582, 06105, 58821, 54263, 02196 #### [facility] [address] [place] [address], [place] Glucose [Mass/Vol] 91 mg/dL Normal 70-[address] [facility] Comment on above: Order Comment: No: D o not add to previous draw Performed By: #### 4 1000, 78197, 75176, 14775, 07818, 18778, 64963 #### [facility] [address] [place] [address], [facility] Potassium [Moles/Vol] 3.5 mmol/L Normal 3.5-5.1 [facility] Comment on above: Order Comment: No: D o not add to previous draw Performed By: #### 4 1000, 84379, 47269, 86624, 56840, 69794, 19832 #### [facility] [address] [place] [address], [facility] Sodium [Moles/Vol] 133 mmol/L Low 136-[address] [facility] Comment on above: Order Comment: No: D o not add to previous draw Performed By: #### 4 1000, 99356, 60386, 56092, 66808, 55874, 15939 #### [facility] [address] [place] [address], [facility] Urea nitrogen [Mass/Vol] 11 mg/dL Normal 7-25 [facility] Comment on above: Order Comment: No: D o not add to previous draw Performed By: #### 4 1000, 06928, 18540, 75655, 23091, 99041, 84652 #### [facility] [address] BNP (B-TYPE NATRIURETIC PEPT MIKE)on 07-11-2019 Natriuretic peptide B (Bld) [Mass/Vol] 107 pg/mL High 0-100 The [facility] Comment on above: Order Comment: This order is a replacement of the rejected order with accession [id number]. Result Comment: Give n the appropriate clinical setting a BNP result of >100 pg/mL indicates congestive heart failure. Performed By: #### 5 0103, 49572 #### [facility] [address] [place] [address], [facility] C REACTIVE PROTEINon 019 CRP [Mass/Vol] 355.0 mg/L High 0.0-7.0 [facility] Comment on above: Order Comment: Yes: Add to Previous draw if able Performed By: #### 5 010, 82049 #### [facility] [address] [place] [address], [facility] CBC W/DIFFon 07-11-2019 ABS BASOPHILS 0.1 10*3/uL Normal 0.0-0.2 The [facility] Comment on above: Performed By: #### 5 010, 17715 #### [facility] [address] [facility] [address] ABS IMM GRANS 0.2 10*3/uL Normal 0.0-0.2 The [facility] Comment on above: Performed By: #### 5 102, 42088 #### [facility] [address] ABS NEUTROPHILS 4.9 10*3/uL Normal 1.6-7.6 The [facility] Comment on above: Performed By: #### 5 102, 35702 #### [facility] [address] Basophils/100 WBC (Bld) 0.8 % Normal 0.0-1.0 [facility] Comment on above: Performed By: #### 5 102, 93150 #### [facility] [address] [place] [address], [facility] Eosinophils (Bld) [#/Vol] 0.4 10*3/uL Normal 0.0-0.5 [facility] Comment on above: Performed By: #### 5 102, 08247 #### [facility] [address] [place] [address], [facility] Eosinophils/100 WBC (Bld) 5.2 % Normal 0.0-6.0 [facility] Comment on above: Performed By: #### 5 102, 38733 #### [facility] [address] Erythrocyte distribution width (RBC) [Ratio] 14.3 % Normal 11.5-15.0 [facility] Comment on above: Performed By: #### 5 102, 19772 #### [facility] [address] Hematocrit (Bld) [Volume fraction] 29.1 % Low 36.0-45.0 [facility] Comment on above: Performed By: #### 5 102, 96599 #### [facility] [address] Hemoglobin (Bld) [Mass/Vol] 9.0 g/dL Low 12.0-15.0 [facility] Comment on above: Performed By: #### 5 102, 26400 #### [facility] [address] IMMATURE GRANS 2.2 % High 0.0-1.0 The [facility] Comment on above: Performed By: #### 102, 98571 #### [facility] [address] Lymphocytes (Bld) [#/Vol] 1.4 10*3/uL Normal 1.2-4.0 [facility] Comment on above: Performed By: #### 5 102, 91914 #### [facility] [address] Lymphocytes/100 WBC (Bld) 18.2 % Low 20.0-45.0 [facility] Comment on above: Performed By: #### 5 102, 82604 #### [facility] [address] MCH (RBC) [Entitic mass] 26.9 pg Low 27.0-33.0 [facility] Comment on above: Performed By: #### 102, 52948 #### [facility] [address] [place] [address], [facility] MCHC (RBC) [Mass/Vol] 30.9 g/dL Low 32.0-35.0 [facility] Comment on above: Performed By: #### 5 102, 50705 #### [facility] [address] [place] [address], [facility] MCV (RBC) [Entitic vol] 86.9 fL Normal 82.0-98.0 [facility] Comment on above: Performed By: #### 102, 68756 #### [facility] [address] [place] [address], [facility] Monocytes (Bld) [#/Vol] 0.9 10*3/uL Normal 0.1-1.0 [facility] Comment on above: Performed By: #### 102, 84939 #### [facility] [address] [place] [address], [facility] MONOS 11.3 % Normal 5.0-12.0 [facility] Comment on above: Performed By: #### 5 102, 47676 #### [facility] [address] [place] [address], [facility] Neutrophils/100 WBC (Bld) 62.3 % Normal 40.0-72.0 [facility] Comment on above: Performed By: #### 5 102, 34664 #### [facility] [address] [place] [place] [address], [facility] Nucleated RBC/100 WBC (Bld) [Ratio] 0 % Normal 0-0 [facility] Comment on above: Performed By: #### 5 102, 67798 #### [facility] [address] [place] [address], [facility] PLAT CNT 873 10*3/uL High 150-400 The [facility] Comment on above: Performed By: #### 5 0103, 26017 #### [facility] [address] [place] [address], [facility] RBC (Bld) [#/Vol] 3.35 10*6/uL Low 3.80-5.00 The [facility] Comment on above: Performed By: #### 5 0103, 83146 #### [facility] [address] [place] [address], [facility] WBC (Bld) [#/Vol] 7.85 10*3/uL Normal 4.00-10.60 The [facility] Comment on above: Performed By: #### 5 0103, 42282 #### [facility] [address] [facility] [facility] CPKon 07-11-2019 CK [Catalytic activity/Vol] 23 U/L Low 30-223 The [facility] Comment on above: Performed By: #### 4 1000, 47472, 29200, 35433, 91337, 57660, 21532 #### [facility] [address] FERRITINon 07-11-2019 Ferritin [Mass/Vol] 110 ng/mL Normal 11-307 The [facility] Comment on above: Performed By: #### 4 1000, 68649, 53535, 15228, 17468, 75230, 85212 #### [facility] [address] HIP RIGHT 1 OR 2 VWS WITH PE LVISon 07-11-2019 HIP RIGHT 1 OR 2 VWS WITH PELVIS [facility] Department of Radiology [address] [place] [address] ======== Patient Name: EMY CHEATHAM : 1945 Sex: F Age: Race: White Pt. Location: [id number] Patient Status: I Ordered Date: 07/11/2019 10:50:00 [...] wires Electronically signed by:Amandeep Mccormack. Transcribed by: [email or web address], User Resident: Electronically Signed by: AMANDEEP MCCORMACK @ 07/11/2019 12:33 PM Normal The [facility] Comment on above: Order Comment: Hardw are Evaluation MAGNESIUM BLOODon 07-11-2019 Magnesium [Mass/Vol] 1.7 mg/dL Low 1.9-2.7 The [facility] Comment on above: Order Comment: No: D o not add to previous draw Performed By: #### 4 1000, 01584, 42177, 31908, 83014, 76616, 13369 #### [facility] [address] MYOGLOBINon 07-11-2019 Myoglobin [Mass/Vol] 21 ng/mL Normal 0-90 The [facility] Comment on above: Result Comment: A DO UBLING OF VALUES FROM SERIAL BLOOD COLLECTIONS (1 - 2 HOURS APART) IS MORE INDICATIVE OF A M.I. THAN THE ABSOLUTE VALUE. Performed By: #### 4 1000, 56704, 86897, 65947, 10863, 56027, 95363 #### [facility] [address] PHOSPHORUS BLOODon 9 Phosphate [Mass/Vol] 3.3 mg/dL Normal 2.5-5.0 The [facility] Comment on above: Order Comment: No: D o not add to previous draw Performed By: #### 4 1000, 31168, 06877, 30846, 32329, 89956, 52006 #### [facility] [address] [place] [address], [facility] RBC'S 2 UNITSon 07-11-2019 CROSSMATCH INTERP 1 COMP Normal [facility] Comment on above: Performed By: #### 5 0103, 13130 #### [facility] [address] [place] [address], [facility] CROSSMATCH INTERP 2 COMP Normal The [facility] Comment on above: Performed By: #### 5 0103, 78250 #### [facility] [address] [place] [address], [facility] PRODUCT CODE 1 E0336 Normal The [facility] Comment on above: Performed By: #### 5 0103, 31867 #### [facility] [address] [place] [address], [facility] PRODUCT CODE 2 E0336 Normal The [facility] Comment on above: Performed By: #### 5 0103, 91472 #### [facility] [address] [facility] [place] [address], [facility] PRODUCT STATUS 1 RE Normal The [facility] Comment on above: Result Comment: Resu lt changed by IF on 07/12/2019 12:53. The previous value was XM. Result changed by IF on 07/12/2019 16:13. The previous value was IS. Result changed by IF on 07/13/2019 11:24. The previous value was XM. Result changed by IF on 07/13/2019 11:31. The previous value was XX. Performed By: #### 5 0103, 40696 #### [facility] [address] [place] [address], [facility] PRODUCT STATUS 2 PT Normal The [facility] Comment on above: Result Comment: Resu lt changed by IF on 07/12/2019 12:53. The previous value was XM. Result changed by IF on 07/12/2019 16:13. The previous value was IS. Result changed by IF on 07/13/2019 14:26. The previous value was XM. Result changed by IF on 07/14/2019 00:30. The previous value was IS. Performed By: #### 5 0103, 63077 #### [facility] [address] [place] [address], [facility] UNIT ABO 1 O Normal [facility] Comment on above: Performed By: #### 5 0103, 45247 #### [facility] [address] [place] [address], [place] UNIT ABO 2 O Normal [facility] Comment on above: Performed By: #### 5 0103, 35056 #### [facility] [address] [place] [address], [place] UNIT ID 1 [id number] Normal The [facility] Comment on above: Performed By: #### 5 0103, 10944 #### [facility] [address] [place] [address], [place] UNIT ID 2 [id number] Normal The [facility] Comment on above: Performed By: #### 5 102, 66204 #### [facility] [address] [place] [address], [facility] UNIT RH 1 Negative Normal The [facility] Comment on above: Performed By: #### 5 010, 77204 #### [facility] [address] [place] [address], [facility] UNIT RH 2 Negative Normal The [facility] Comment on above: Performed By: #### 5 010, 24083 #### [facility] [address] [place] [address], [facility] SEDIMENTATION RATEon 019 SED RATE 101 mm/hr High 0-20 The [facility] Comment on above: Performed By: #### 5 010, 37763 #### [facility] [address] TIBC- INCLUDES IRONon 2018 FE SATURATION 7 % Low 20-50 The [facility] Comment on above: Performed By: #### 4 1000, 63563, 98646, 84556, 16075, 28079, 26237 #### [facility] [address] Iron [Mass/Vol] 13 ug/dL Low 50-212 The [facility] Comment on above: Performed By: #### 4 1000, 07738, 47093, 20391, 89729, 41681, 60459 #### [facility] [address] [place] [address], [facility] TIBC 191 mcg/dL Low 250-450 The [facility] Comment on above: Performed By: #### 4 1000, 41971, 87156, 76121, 00341, 89202, 41660 #### [facility] [address] [place] [id number], [facility] UIBC 178 mcg/dL Normal 155-355 The [facility] Comment on above: Performed By: #### 4 1000, 52629, 93639, 07861, 77574, 48708, 47145 #### [facility] Blossom CONNOR. [address] Otheron 09-18-2000 CONVERTED ELECTRONIC SIGNATURE MICHAEL HEART M.D., PATHOLOGIST (Electronic signature on file) Final Signed Out: 09/18/2000 15:59 [facility] CONVERTED FINAL DIAGNOSIS TISSUE FROM ABDOMINAL WALL, EXCISION - FIBROADIPOSE TISSUE WITH HEMORRHAGE. ASSOCIATED SUTURE MATERIAL AND SYNTHETIC MESH-LIKE MATERIAL. [facility] CONVERTED ORDERING PROVIDER Ordering Provider: DRE OCONNELL [facility] Otheron 04-18-2000 CONVERTED ELECTRONIC SIGNATURE LUZ MARINA ACEVES M.D., PATHOLOGIST (Electronic signature on file) Final Signed Out: 04/18/2000 12:24 [facility] CONVERTED ORDERING PROVIDER Ordering Provider: DRE OCONNELL [facility] Granulocytes/100 WBC (Bld) A) LYMPH NODE, [...] reviewed on the distal [facility] remnant [facility]ED FINAL DIAGNOSIS LEFT BREAST, CORE BIOPSY - DENSE FIBROSIS WITH FOCAL MICROCALCIFICATIONS. NEGATIVE FOR MALIGNANCY. COMMENT - Histologic sections demonstrate dense fibrosis and duct ectasia with focal microcalcifications. The specimen may represent portions of an old hyalinized fibroadenoma or merely a dense fibrosis associated with fibrocystic change. There is no evidence of malignancy. [facility] CONVERTED ORDERING PROVIDER Ordering Provider: LUCHO CERVANTES [facility] Thyroidon 06-01-1999 TSH Jeniffer LOGAN M.D., PATHOLOGIST (Electronic signature on file) Final Signed Out: 06/01/1999 13:30 [facility] Encounters Encounter Date Encounter Type Care Provider Facility Start: 12-14-2022 ambulatory Facility:Arvind Nieto Start: 10-04-2022 End: 10-06-[address] NASREEN MARY . Facility: Start: 08-04-2022 End: 08-07-[address] NASREEN MARY . Facility:[facility] Start: 01-21-2022 End: 01-25-[address] NASREEN MARY . Facility: Start: 10-05-2021 End: 10-05-2021 ambulatory Helene Mainarney Other [place] [employer] Other Start: 10-05-2021 Telephone encounter Helene Carlson [facility] Start: 07-11-2019 End: 07-17-2019 Evaluation and management of inpatient ELFEGO MENDEZ Facility:[facility] Start: 09-15-2000 End: 09-15-2000 Patient encounter procedure Dre Oconnell Work Phone: [facility] Start: 09-15-2000 Results Only Dre hines Work Phone: [facility] Start: 04-16-2000 End: 04-16-2000 Patient encounter procedure Dre Oconnell Work Phone: [facility] Start: 04-16-2000 Results Only Dre Ángel hines Work Phone: [facility] Start: 05-31-1999 End: 05-31-1999 Patient encounter procedure Lucho Cervantes Work Phone: [facility] Start: 05-31-1999 Results Only Lucho Stoddard i Work Phone: [facility] Procedures Date Procedure Procedure Detail Performing [...] on above: Performed By: #### 5 0103, 18020 #### [address] Start: 09-15-2000 CONVERTED SURGICAL PATHOLOGY Dre Oconnell Work Phone: Start: 04-16-2000 CONVERTED SURGICAL PATHOLOGY Dre Oconnell Work Phone: Start: 05-31-1999 CONVERTED SURGICAL PATHOLOGY Lucho Cervantes Work Phone: Immunizations Immunization Date Immunization Notes Care Provider Hilton mtz 05-22-2018 influenza, high dose seasonal, preservative-free Helene Carlson Other [place] Other 06-20-2014 pneumococcal polysaccharide vaccine, 23 valent Helene Carlson Other [place] Other Payers Date Payer Category Payer Medicare [id number] 1961 Medicare [id number] 1945 Unknown [id number] [id number] 1945 Unknown [id number] [id number] [id number] 1945 Unknown [id number] [id number] [id number] 1945 Unknown [id number] 2.16.84 [id number] Private Health Insurance [id number] [id number] Social History Date Type Detail Facility Tobacco smoking status NHIS Unknown if ev er smoked [facility] Sex Assigned At Not on file [facility] Sex Assigned At Sex Assigned At Bir [facility] [place] Other Discharge summary note 10-04-2022 Note Date & Type Note Facility 10-04-2022 Note Discharge Date: 11/2022 HISTORY OF PRESENT ILLNESS: The patient was evaluated at the shelter, found to have bilateral pneumonia with status [...] and she was transferred back to the shelter. She will continue on the oral antibiotics and steroids, and proper use was explained, and I will follow her up at the shelter. DISCHARGE DIAGNOSIS: 1. Bilateral pneumonia. 2. Status [...] 14. Chronic kidney disease stage 3. The [facility] Evaluation note Note Date & Type Note Facility Evaluation note No Information [facility] [employer] Other History general Narrative - Reported Note [...] hip replacement 2017 Hospitalization History see above [place] Other Summary Purpose Family History No Family History Records FoundNo Family History Records FoundNo Family History Records FoundNo Family History Records Found Advance Directives No Advanced Directives Records FoundNo Advanced Directives Records FoundNo Advanced Directives Records FoundNo Advanced Directives Records Found Hospital Course Note MR#: [id number] [facility] Pt. Name: Emy Cheatham Admitted: 07/11/2019 Discharged: [...] Again, the patient was admitted from outside [facility] (more content not included)... Additional Source Comments INFORMATION SOURCE (unrecogn ized section and content) DATE CREATED AUTHOR 08/09/2019 [facility] DATE CREATED AUTHOR AUTHOR'S ORGANIZ ATION 12/25/2021 [facility] DATE CREATED AUTHOR AUTHOR'S ORGANIZ ATION 11/04/2022 The [facility] DATE CREATED AUTHOR AUTHOR'S ORGANIZ ATION 12/16/2022 [facility] Source Comments (unrecognize d section and content) In the event this informatio n is protected by the Federal Confidentiality of Alcohol and Drug Abuse Patient Records regulations: The Federal rules restrict any use of the information to criminally investigate or prosecute any alcohol or drug abuse patient.[facility] the event this information is protected by the Federal Confidentiality of Alcohol and Drug Abuse Patient Records regulations: The Federal rules restrict any use of the information to criminally investigate or prosecute any alcohol or drug abuse patient.[facility] the event this information is protected by the Federal Confidentiality of Alcohol and Drug Abuse Patient Records regulations: The Federal rules restrict any use of the information to criminally investigate or prosecute any alcohol or drug abuse patient.[facility] REASON FOR VISIT (unrecogniz ed section [...] BASED ON THE PRIMARY CLINICAL RECORDS. [employer] [facility]. provides no warranty or guarantee of the accuracy or completeness of information in this document.
[2024-11-21] MEDS: 0.9 % SODIUM CHLORIDE 1,000 ML 200 ML IV (05:44)
[2024-11-21 06:54] LABS: Glucometer 52 mg/dL (74-106)
[2024-11-21] MEDS: DEXTROSE 50 %-WATER 25 GM/50 ML SYRINGE IV (06:55)
[2024-11-21 07:04] LABS: Glucometer 119 mg/dL (74-106)
--- NOTE | 2024-11-21 07:04 | ECG_ITS ---
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 Measurements Intervals [place] Rate: 138 P: [id number] ID: [id number] QRS: 17 QRSD: 82 T: 195 QT: 260 QTc: 340 Interpretive Statements [id number] Atrial fibrillation with rapid ventricular response Non specific [place] abnormality 8102 Low QRS voltage in chest leads 8305 Short QTc interval 9150 abnormal ECG Compared to ECG 11/20/2024 23:43:26 Low QRS voltage is now present Electronically Signed On 11-21-2024 17:48:49 EDT by ILIANA JENKINS M.D.
--- NOTE | 2024-11-21 07:06 | PC.NURSE ---
0642 RN to bedside to assist Lab personnel. Attempt X2 to draw blood from IV site unsuccessful. Pt moaned through her BiPap and became unresponsive. Attempted to sternal rub pt, pt did not respond. Noted HR decrease into the 80's. Noted to have agonal respirations. Pt removed from BiPap and Ambu bag used to assist patient's respirations. RT to bedside. Hospitalist notified. Pt's daughter notified. Pt medicated as charted.
--- NOTE | 2024-11-21 07:47 | P.HP_ITS ---
HPI H&P: HPI History of Present Illness Chief complaint: HYPOTENSION, RESP. FAILURE Narrative: 79 y.o. female, bedbound, [facility] care home resident came in to the ER last night with sudden onset respiratory distress and hypotension. She was found to be lethargic with low oxygen readings and low BP at the care home and she was transferred to ER from the [facility] by EMS. When she arrived to the ER BP 80/50 She was very hypoxic with oxygen sats 57% and placed on Bipap. Work up in the ER showed elevated white blood cell count of 13.8 and on recheck was 30.8, Hb 8.0, Cr 2.34, BUN 42 Lactate 6.6. ABG had pH 7.259, pCO2 39, PO2 432 and bicarb 17. She was started on Zosyn and Vanc IV, Started on Levophed drip along with IVF. Daughter who is POA, was present in the ER and option to transfer patient was discussed but she wanted to keep at [facility] and try to treat her current condition. Patient at that time was a DNRCCA. She was transferred to the ICU. Patient's Levophed drip was titrated up and NS fluid bolus along with Fluids were running, patient's hypotension continued, A Wood catheter was placed to monitor urine output. She did not have much output. She became more lethargic on the BIPAP, ABG was repeated again along with Chest X-ray. Chest X-ray showed no acute pneumonia. UA was sent. Blood culture came back positive for Strep A. I had long discussion with daughter who was at bedside about the need for central line or PICC line, the need for intubation, Art line to monitor pressures and gave her option of Transferring to Acute care facility. I also discussed the severity of her illness with renal failure, sepsis, heart failure, also needing CT of the head. I discussed that she is near despite what all we try. Daughter opted to just keep patient comfortable and withdrawal any life saving measures. Patient was made a DNRCC, this was signed and updated in the chart. BIPAP was withdrawn. Levophed and IV medications stopped. Telemetry stopped. Patient at 11:25. She will be taken to [facility] home. Opioid HPI Opioid Management Most Recent Pain and Opioid Data: Last Pain Scale 0 05/12/24 12:22 05/12/24 Last Pain Assessment 11/21/24 11:00 Last ORT Total Score 0 11/21/24 05:43 11/21/24 Last ORT Risk Category Low Risk 11/21/24 05:43 11/21/24 Review of Systems ROS Status of ROS unobtainable due to medical condition [facility] Medical History (Updated 11/21/24 @ 13:51 by Rosanna Lunsford DO) Urinary incontinence ?R32 - Unspecified urinary incontinence (ICD-10) Insomnia ?G47.00 - Insomnia, unspecified (ICD-10) Cognitive communication deficit ?R41.841 - Cognitive communication deficit (ICD-10) CHF (congestive heart failure) ?I50.9 - Heart failure, unspecified (ICD-10) Suspected venous thromboembolism (VTE) ?R09.89 - Other specified symptoms and signs involving the circulatory and respiratory systems (ICD-10) D-dimer, elevated ?R79.89 - Other specified abnormal findings of blood chemistry (ICD-10) Chest pain ?R07.9 - Chest pain, unspecified (ICD-10) Macrocytic anemia ?D53.9 - Nutritional anemia, unspecified (ICD-10) Prolonged immobilization ?Z74.09 - Other reduced mobility (ICD-10) Afib ?I48.91 - Unspecified atrial fibrillation (ICD-10) CKD stage 3a, GFR 45-59 ml/min ?N18.31 - Chronic kidney disease, stage 3a (ICD-10) (HFpEF) heart failure with preserved ejection fraction ?I50.30 - Unspecified diastolic (congestive) heart failure (ICD-10) Major depressive disorder ?F32.9 - Major depressive disorder, single episode, unspecified (ICD-10) 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 - Nontoxic goiter, unspecified (ICD-10) Hypothyroid ?E03.9 - Hypothyroidism, unspecified (ICD-10) Neuromuscular dysfunction of bladder ?N31.9 - Neuromuscular dysfunction of bladder, unspecified (ICD-10) Gout ?M10.9 - Gout, unspecified (ICD-10) Fibromyalgia ?M79.7 - Fibromyalgia (ICD-10) Obesity ?E66.9 - Obesity, unspecified (ICD-10) Disc degeneration, lumbar ?M51.36 - Other intervertebral disc degeneration, lumbar region (ICD-10) Lymphedema ?I89.0 - Lymphedema, not elsewhere classified (ICD-10) Pulmonary edema ?J81.1 - Chronic pulmonary edema (ICD-10) Kidney disease ?N28.9 - Disorder of kidney and ureter, unspecified (ICD-10) Heart failure and kidney disease due to high blood pressure ?I13.0 - Hypertensive heart and chronic kidney disease with heart failure and stage 1 through stage 4 chronic kidney disease, or unspecified chronic kidney disease (ICD-10) Asthma ?J45.909 - Unspecified asthma, uncomplicated (ICD-10) Pneumonia ?J18.9 - Pneumonia, unspecified organism (ICD-10) Social History (Updated 11/21/24 @ 06:03 by Carly Holliday RN) Within the past year, how often did you have a drink containing alcohol: never Score interpretation: A score less than 3 is consistent with normal alcohol consumption. Smoking status: Never smoker Non-prescribed substance use: denies use Previous occupational history: retired Known occupational exposures/hazards: No Highest level of school completed/degree received: high school graduate Do you want help with school or training: No Are you now , , , , never or living with a partner: don't know In a typical week, how many times do you talk on the telephone with family, friends, or neighbors: once per week How often do you get together with friends or relatives: once per week How often do you attend jewish or oriental orthodox services: 1-3 times per year Do you belong to any clubs or organizations such as jewish groups unions, fraternal or athletic groups, or school groups: no Total score: 0 Score interpretation: A score of less than or equal to 1 indicates the most socially isolated. Little interest or pleasure in doing things: not at all Feeling down, depressed, or hopeless: not at all Feel stressed/tense/nervous/anxious/difficulty sleeping: not at all Due to disability, difficulty making decisions: No Do you think of yourself as: straight/heterosexual Gender Identity: female Meds Home Medications and Allergies Home Medications ?Medication ?Instructions ?Recorded ?Confirmed ?Type acetaminophen 325 mg tablet (Aphen) 650 mg PO DAILY 06/12/23 11/21/24 History aluminum-mag hydroxide-simethicone 5 ml PO Q4H PRN indigestion 06/12/23 11/21/24 History 200 mg-200 mg-20 mg/5 mL oral susp (Advanced Antacid-Antigas) aspirin 81 mg tablet,delayed 81 mg PO DAILY 06/12/23 11/21/24 History release (Adult Low Dose Aspirin) budesonide-formoterol HFA 160 2 inh inhalation BID 06/12/23 11/21/24 History mcg-4.5 mcg/actuation aerosol inhaler (Breyna) calcium 600 mg (as 1 tab PO BID 06/12/23 11/21/24 History carbonate)-vitamin D3 10 mcg (400 unit) tablet (Calcium 600 + D(3)) ergocalciferol (vitamin D2) 1,250 1,250 mcg PO QWEEK 06/12/23 11/21/24 History mcg (50,000 unit) capsule (Drisdol) febuxostat 40 mg tablet 40 mg PO DAILY 06/12/23 11/21/24 History folic acid 1 mg tablet 1 mg PO DAILY 06/12/23 11/21/24 History furosemide 20 mg tablet 40 mg PO DAILY 06/12/23 11/21/24 History gabapentin 300 mg capsule 300 mg PO Q8H 06/12/23 11/21/24 History levothyroxine 100 mcg tablet 100 mcg PO DAILY 06/12/23 11/21/24 History (Euthyrox) liothyronine 5 mcg tablet 5 mcg PO BID 06/12/23 11/21/24 History metolazone 5 mg tablet 5 mg PO DAILY 06/12/23 11/21/24 History multivitamin (Daily Multi-Vitamin 1 tab PO DAILY 06/12/23 11/21/24 History tablet) pantoprazole 40 mg tablet,delayed 20 mg PO DAILY 06/12/23 11/21/24 History release spironolactone 25 mg tablet 25 mg PO DAILY 06/12/23 11/21/24 History (Aldactone) tramadol 50 mg tablet 50 mg PO Q6H PRN pain 06/12/23 11/21/24 History ammonium lactate 12 % lotion 1 applic topical BID 05/11/24 11/21/24 History ketoconazole 2 % topical cream 1 applic topical BID 05/11/24 11/21/24 History nystatin 100,000 unit/gram topical 1 applic topical BID PRN skin 05/11/24 11/21/24 History powder (Nyamyc) irritation trazodone 100 mg tablet 100 mg PO DAILY 05/11/24 11/21/24 History alprazolam 0.25 mg tablet (Xanax) 0.25 mg PO DAILY 11/21/24 11/21/24 History Allergies Allergy/AdvReac Type Severity Reaction Status Date / Time allopurinol Allergy Unknown Unknown Verified 05/13/24 19:35 codeine Allergy Unknown Unknown Verified 05/13/24 19:35 adhesive tape AdvReac Unknown Unknown Verified 05/13/24 19:35 diazepam (From Valium) AdvReac Unknown Unknown Verified 05/13/24 19:35 morphine AdvReac Unknown Unknown Verified 05/13/24 19:35 prochlorperazine (From AdvReac Unknown Unknown Verified 05/13/24 19:35 Compazine) Exam Narrative Exam Narrative: General: Patient eyes would open to name only, respiratory distress despite bipap Skin: pallor Head: atraumatic, acephalic Heart: increased rate and irregular rhythm, no murmurs/rubs/gallops Lungs: diminished breath sounds all lung grajeda Abdomen: distension, but no palpable masses, hypoactive bowel sounds Musculoskeletal: 3 +, swelling bilateral lower extremities Neuro: could not assess with patient's condition Constitutional Vital Signs, click to edit/add: Last Vital Signs Temp 96.7 F L 11/21/24 05:43 Pulse 129 H 11/21/24 06:52 Resp 25 H 11/21/24 06:37 BP 66/50 L 11/21/24 06:37 Pulse Ox 65 L 11/21/24 06:23 O2 Del Method BIPAP 11/21/24 05:43 O2 Flow Rate 15 11/20/24 22:51 FiO2 50 11/21/24 06:52 Results Labs Labs: Short CBC 11/20/24 Range/Units 23:07 WBC 13.8 H (4.0-11.0) 10^3/uL Hgb 8.0 L (12.0-16.0) g/dL Hct 25.3 L (36.0-48.0) % Plt Count 421 (150-450) 10^3/uL BMP 11/20/24 23:07 Sodium 137 Potassium 4.9 Chloride 104 Carbon Dioxide 20.4 L BUN 42.0 H Creatinine 2.34 H Glucose 102 Calcium 7.9 L ABG ABG results: 11/21/24 01:57 ABG pH 7.259 L* ABG pCO2 39.1 ABG pO2 432.0 H ABG HCO3 17.5 L ABG O2 Saturation 98.9 ABG Base Excess -9.6 L Assessment and Plan Assessment and Plan (1) Severe sepsis with acute organ dysfunction: (2) Metabolic acidosis with increased anion gap and accumulation of organic acids: (3) Acute respiratory failure with hypoxia: (4) Acute hypotension: (5) Acute renal failure: Qualifiers: Acute renal failure type: unspecified Qualified Code(s): N17.9 - Acute kidney failure, unspecified (6) Acute heart failure: Qualifiers: Heart failure type: unspecified Qualified Code(s): I50.9 - Heart failure, unspecified (7) Afib: Qualifiers: Atrial fibrillation type: persistent (not longstanding) Qualified Code(s): I48.19 - Other persistent atrial fibrillation (8) Chest pain: Qualifiers: Chest pain type: intercostal pain Qualified Code(s): R07.82 - Intercostal pain (9) Urinary incontinence: Qualifiers: Urinary Incontinence type: unspecified incontinence Qualified Code(s): R32 - Unspecified urinary incontinence (10) Hypothyroid: Qualifiers: Hypothyroidism type: unspecified Qualified Code(s): E03.9 - Hypothyroidism, unspecified (11) Lymphedema: (12) CKD stage 3a, GFR 45-59 ml/min: Plan Please see the HPI for detail of care. Patient was very sick with high likely burton of upon ER admission based on findings and deterioration. Daughter opted to make comfort care only and stop all treatment. Patient at 1125. Critical Care time spent 90 min Urinary Catheter Management Urinary Catheter Management Urethral: Cath placed during this visit: yes Urethral indwelling: Yes Reason for continuing: end of life care Insertion date: 11/20/24 Insertion time: 23:40
[2024-11-21] MEDS: NOREPINEPHRINE BITARTRATE/D5W 4 MG/250 ML PREMIX 82.5 MG IV (07:53)
[2024-11-21 08:09] LABS: ABG PCO2 34.2 mmHg (35.0-45.0); Allen Test POSITIVE (POSITIVE); BIPAP Pressure 18/6; Fractionated Inspired Oxygen 50 %; HCO3 ABG 14.5 mmol/L (22.0-26.0); O2 Mode BIPAP; Puncture Site L RADIAL
[2024-11-21 08:10] LABS: Minute Volume 18.7; Rate 14
[2024-11-21 08:11] LABS: pH ABG 7.236 (7.350-7.450)
[2024-11-21 08:17] LABS: Mean Corpuscular HGB Conc 31.3 g/dL (29.9-35.2); Mean Corpuscular Hemoglobin 36.6 pg (26.7-34.0); Mean Corpuscular Volume 117.2 fL (81.0-99.0); Mean Platelet Volume 11.4 fL (9.5-13.5); Platelet Count 729 10^3/uL (150-450); Red Blood Count 2.73 10^6/uL (4.20-5.40); Red Cell Distribution Width 16.1 % (11.0-15.0)
[2024-11-21 08:24] LABS: White Blood Count 30.8 10^3/uL (4.0-11.0)
[2024-11-21 08:51] LABS: Alanine Aminotransferase 17 U/L (14-59); Albumin Globulin Ratio 0.6; Albumin Level 2.3 g/dL (3.4-5.0); Alkaline Phosphatase 71 U/L (46-116); Anion Gap 21.9; Aspartate Amino Transferase 41 U/L (15-37); BUN Creatinine Ratio 17.1; Bilirubin Total 0.3 mg/dL (0.2-1.0); Calcium 8.3 mg/dL (8.5-10.1); Carbon Dioxide 17.1 mmol/L (21.0-32.0); Chloride 104 mmol/L (98-107); Estimated GFR (African America 21 (>=60 mL/min/1.73m^2); Estimated GFR (Non-African Ame 17 (>=60 mL/min/1.73m^2); Globulin 3.8 g/dL; Glucose 105 mg/dL (74-106); Sodium 139 mmol/L (136-145); Total Protein 6.1 g/dL (6.4-8.2)
--- NOTE | 2024-11-21 08:53 | SWNOTE1 ---
Pt is from [facility].
[2024-11-21 08:54] LABS: Band Neutrophils Absolute 10.5 10^3/uL (0.0-0.3); Eosinophils Absolute Manual 0.92 10^3/uL (0.00-0.70); Lymphocytes Absolute Manual 5.54 10^3/uL (1.20-3.80); Metamyelocytes Absolute Manual 1.84; Monocytes Absolute Manual 4.92 10^3/uL (0.30-0.80); Poikilocytosis 1+; Segmented Neut Absolute Manual 7.08 10^3/uL (1.4-6.5)
[2024-11-21 08:55] LABS: Anisocytosis 1+; Burr Cells 1+; Macrocytosis 1+; Troponin I High Sensitivity 33.1 pg/mL (4.0-51.3)
[2024-11-21 08:55] LABS: Bilirubin Urine NEGATIVE (NEGATIVE); Blood Urine SMALL (NEGATIVE); Clarity Urine CLEAR (CLEAR); Color Urine LT. YELLOW (YELLOW); Glucose Urine UA NEGATIVE (NEGATIVE); Ketones Urine NEGATIVE (NEGATIVE); Leukocyte Esterase Urine TRACE (NEGATIVE); Nitrite Urine NEGATIVE (NEGATIVE); Protein Urine NEGATIVE (NEG/TRACE); Specific Gravity Urine <=1.005 (1.005-1.025); Urobilinogen Urine 0.2 EU/dL (0.2-1.0); pH Urine 5.5 (5.0-9.0)
[2024-11-21 09:14] LABS: Bacteria Urine TRACE #/HPF (NONE SEEN); Cast Seen? NONE SEEN #/LPF (NONE SEEN); Crystals Seen? None Seen #/HPF (None Seen); Mucus Urine NONE SEEN (NONE SEEN); Squamous Epithelial Cell Urine FEW #/LPF (NONE/RARE); Urine Culture Indicated NO; WBC Urine 0-2 #/HPF (NONE SEEN)
--- NOTE | 2024-11-21 09:14 | SWNOTE1 ---
[facility] faxed ED note, labs, vitals, and nursing notes to [facility].
--- NOTE | 2024-11-21 10:35 | PC.NURSE ---
LATE ENTRY Dr. Lunsford notified that pt would like to withdraw care at 0935. Dr. Lunsford and case assembler in at bedside at [address] Lunsford and family agreed to change code status to DNRCC at this time and discontinue everything. RT notified of status change at [address] pt on 6L NC for comfort instead of the BiPAP. At 1004, pt was taken off of BiPAP and placed on NC, all IV drips/medications turned off and pt made saline lock, and pt was taken off of the ICU monitor. Family remains at bedside. Courtesy cart placed outside of room and family informed.
--- NOTE | 2024-11-21 10:51 | SWNOTE1 ---
SW stopped in to check on patient/family and at this time family voiced no needs.
--- NOTE | 2024-11-21 11:23 | CM.NOTE ---
Rounds made with Dr. Lunsford. Dr. Lunsford discusses Code status and changes requested per family. Daughter, Toshia verbalizes understanding.
--- NOTE | 2024-11-21 12:04 | PC.NURSE ---
[facility] notified of patient expiration at 1201 per family request. This RN spoke with the nurse Yari at [facility].
[2024-11-21 12:21] LABS: A. calcoaceticus-baumannii Cpx NOT DETECTED (NOT DETECTE); Bacteroides fragilis NOT DETECTED (NOT DETECTE); Candida albicans NOT DETECTED (NOT DETECTE); Candida auris NOT DETECTED (NOT DETECTE); Candida glabrata NOT DETECTED (NOT DETECTE); Candida krusei NOT DETECTED (NOT DETECTE); Candida parapsilosis NOT DETECTED (NOT DETECTE); Candida tropicalis NOT DETECTED (NOT DETECTE); Cryptococcus neoformans/gattii NOT DETECTED (NOT DETECTE); Enterobacter cloacae complex NOT DETECTED (NOT DETECTE); Enterobacterales NOT DETECTED (NOT DETECTE); Enterococcus faecalis NOT DETECTED (NOT DETECTE); Enterococcus faecium NOT DETECTED (NOT DETECTE); Haemophilus influenzae NOT DETECTED (NOT DETECTE); Klebsiella aerogenes NOT DETECTED (NOT DETECTE); Klebsiella pneumoniae group NOT DETECTED (NOT DETECTE); Listeria monocytogenes NOT DETECTED (NOT DETECTE); Neisseria meningitidis NOT DETECTED (NOT DETECTE); Proteus spp. NOT DETECTED (NOT DETECTE); Pseudomonas aeruginosa NOT DETECTED (NOT DETECTE); Salmonella spp. NOT DETECTED (NOT DETECTE); Serratia marcescens NOT DETECTED (NOT DETECTE); Staphylococcus epidermidis NOT DETECTED (NOT DETECTE); Staphylococcus lugdunensis NOT DETECTED (NOT DETECTE); Staphylococcus spp. NOT DETECTED (NOT DETECTE); Stenotrophomonas maltophilia NOT DETECTED (NOT DETECTE); Streptococcus agalactiae NOT DETECTED (NOT DETECTE); Streptococcus pneumoniae NOT DETECTED (NOT DETECTE)
--- NOTE | 2024-11-21 12:44 | PC.NURSE ---
LATE ENTRY Pt today at 1125 with two RN verification, daughter and family at bedside aware. PCP office of Dr. Hossein Lauren notified at 1127 (Dr. Katherin Irizarry took the call as Dr. Lauren is out of office today), [facility] notified at 1131 (referal number [phone]) and gave release of the body to home, and Dr. Lunsford was notified at 1135). home notified at 1206. Post mortem care performed.
--- NOTE | 2024-11-21 13:11 | SWNOTE1 ---
SW did not have a chance to complete IMM form with pt or family as pt .
--- NOTE | 2024-11-21 13:11 | PC.NURSE ---
Pt left with [facility] at 2157
[2024-11-21 13:39] LABS: Source Blood; Streptococcus spp. DETECTED (NOT DETECTE)
[2024-11-21 13:40] LABS: Streptococcus pyogenes DETECTED (NOT DETECTE)
--- NOTE | 2024-11-21 13:54 | P.DS_ITS ---
DS: Providers Provider Date of admission: 11/21/24 04:58 Primary care physician: PEPE BOWER DO Attending physician on admission: Gely Escudero Consults: 11/21/24 01:58 Consult to Pharmacy Routine Consulting Provider: Gley Escudero Reason for consultation: Zosyn dosing/monitoring Has provider been notified: No Discharging clinician: Rosanna Lunsford DS: Diagnosis Discharge Diagnosis (1) Severe sepsis with acute organ dysfunction: (2) Metabolic acidosis with increased anion gap and accumulation of organic acids: (3) Acute respiratory failure with hypoxia: (4) Acute hypotension: (5) Acute renal failure: Qualifiers: Acute renal failure type: unspecified Qualified Code(s): N17.9 - Acute kidney failure, unspecified (6) Acute heart failure: Qualifiers: Heart failure type: unspecified Qualified Code(s): I50.9 - Heart failure, unspecified (7) Afib: Qualifiers: Atrial fibrillation type: persistent (not longstanding) Qualified Code(s): I48.19 - Other persistent atrial fibrillation (8) Chest pain: Qualifiers: Chest pain type: intercostal pain Qualified Code(s): R07.82 - Intercostal pain (9) Urinary incontinence: Qualifiers: Urinary Incontinence type: unspecified incontinence Qualified Code(s): R32 - Unspecified urinary incontinence (10) Hypothyroid: Qualifiers: Hypothyroidism type: unspecified Qualified Code(s): E03.9 - Hypothyroidism, unspecified (11) Lymphedema: (12) CKD stage 3a, GFR 45-59 ml/min: DS: Summary Hospital Course Hospital Course: Patient 1125 Time Spent with Patient Time attestation: Total time spent providing and/or coordinating discharge services: Time spent: greater than 30 minutes Exam Constitutional Vital Signs, click to edit/add: Last Vital Signs Temp 99.3 F 11/21/24 07:15 Pulse 126 H 11/21/24 10:00 Resp 24 H 11/21/24 10:00 BP 95/61 11/21/24 10:00 Pulse Ox 92 L 11/21/24 07:15 O2 Del Method BIPAP 11/21/24 05:43 O2 Flow Rate 15 11/20/24 22:51 FiO2 50 11/21/24 06:52 DS: Data Data Completed and Pending Labs on day of discharge: Labs from last 24 hours 11/21/24 11/21/24 11/21/24 08:41 08:09 08:00 WBC 30.8 H* RBC 2.73 L Hgb 10.0 L Hct 32.0 L MCV 117.2 H MCH 36.6 H MCHC 31.3 RDW 16.1 H Plt Count 729 H MPV 11.4 Seg Neuts % (Manual) 23.0 L Band Neutrophils % 34.0 H Lymphocytes % (Manual) 18.0 L Monocytes % (Manual) 16.0 H Eosinophils % (Manual) 3.0 Basophils % (Manual) 0.0 L Metamyelocytes % 6.0 Neutrophils # (Manual) 7.08 H Band Neutrophils # 10.5 H Lymphocytes # (Manual) 5.54 H Monocytes # (Manual) 4.92 H Eosinophils # (Manual) 0.92 H Basophils # (Manual) 0.00 Metamyelocytes # 1.84 Poikilocytosis 1+ Anisocytosis 1+ Macrocytosis 1+ James Cells 1+ PT INR APTT Puncture Site L radial ABG pH 7.236 L* ABG pCO2 34.2 L ABG pO2 172.0 H ABG HCO3 14.5 L ABG O2 Saturation 98.0 ABG Base Excess -13.0 L Chaz Test Positive Minute Volume 18.7 FiO2 50 BiPAP 18/6 Sodium 139 Potassium 4.0 Chloride 104 Carbon Dioxide 17.1 L Anion Gap 21.9 BUN 46.0 H Creatinine 2.69 H Est GFR ( Amer) 21 L Est GFR (Non-Af Amer) 17 L BUN/Creatinine Ratio 17.1 Glucose 105 Lactate Calcium 8.3 L Total Bilirubin 0.3 AST 41 H ALT 17 Alkaline Phosphatase 71 Troponin I High Sens 33.1 NT-Pro-B Natriuret Pep Total Protein 6.1 L Albumin 2.3 L Globulin 3.8 Albumin/Globulin Ratio 0.6 Urine Color Lt. yellow Urine Clarity Clear Urine pH 5.5 Ur Specific [place] <=1.005 A Urine Protein Negative Urine Glucose (UA) Negative Urine Ketones Negative Urine Occult Blood Small A Urine Nitrite Negative Urine Bilirubin Negative Urine Urobilinogen 0.2 Ur Leukocyte Esterase Trace A Urine RBC 2-5 A Urine WBC 0-2 A Ur Squamous Epith Cells Few A Urine Crystals None seen Urine Bacteria Trace A Urine Casts None seen Urine Mucus None seen Ur Culture Indicated? No Specimen Source A.calcoaceticus-baumannii cmplx PCR Bacteroides fragilis Elizabeth albicans (PCR) Elizabeth auris (PCR) C. glabrata (PCR) C. krusei (PCR) C. parapsilosis (PCR) C. tropicalis (PCR) C. neoform/gattii (PCR) Enterobacterales (PCR) E. cloacae complex PCR Enterococc faecalis PCR Enterococc faecium PCR E. coli (PCR) H. influenzae (PCR) Influenza Type A Ag Influenza Type B Ag Klebsiella aerogenes (PCR) Klebsiella oxytoca PCR K. pneumoniae group (PCR) List. monocytogenes PCR N. meningitidis (PCR) Proteus spp. (copies/mL) Salmonella spp. (PCR) SARS-CoV-2 Ag (CV2AG) Serratia marcescens PCR Staphylococcus sp PCR Staph aureus (PCR) mecA/C & MREJ Resist Gene mecA/C-Methicil Resis Gene mcr-1 Colistin Res Gene PCR Staph epidermidis (PCR) Staph lugdunensis (TEM-PCR) S. maltophilia (PCR) Streptococcus sp PCR Strep agalactiae (PCR) Strep pneumoniae (PCR) S. pyogenes (PCR) P. aeruginosa (PCR) Елена/B-Vanco Res Genes blaIMP Car res Gene PCR KPC (blaKPC) Detect PCR NDM (blaNDM) Detect PCR OXA-48 Carbapenem Resis Gene (PCR) blaVIM Car Res Gene PCR CTX-M ESBL (PCR) POC Glucose 11/21/24 11/21/24 11/21/24 07:03 06:53 01:57 WBC RBC Hgb Hct MCV MCH MCHC RDW Plt Count MPV Seg Neuts % (Manual) Band Neutrophils % Lymphocytes % (Manual) Monocytes % (Manual) Eosinophils % (Manual) Basophils % (Manual) Metamyelocytes % Neutrophils # (Manual) Band Neutrophils # Lymphocytes # (Manual) Monocytes # (Manual) Eosinophils # (Manual) Basophils # (Manual) Metamyelocytes # Poikilocytosis Anisocytosis Macrocytosis [place] Cells PT INR APTT Puncture Site Lr ABG pH 7.259 L* ABG pCO2 39.1 ABG pO2 432.0 H ABG HCO3 17.5 L ABG O2 Saturation 98.9 ABG Base Excess -9.6 L Chaz Test Positive Minute Volume FiO2 100 BiPAP 18/6 Sodium Potassium Chloride Carbon Dioxide Anion Gap BUN Creatinine Est GFR ( Amer) Est GFR (Non-Af Amer) BUN/Creatinine Ratio Glucose Lactate Calcium Total Bilirubin AST ALT Alkaline Phosphatase Troponin I High Sens NT-Pro-B Natriuret Pep Total Protein Albumin Globulin Albumin/Globulin Ratio Urine Color Urine Clarity Urine pH Ur Specific [place] Urine Protein Urine Glucose (UA) Urine Ketones Urine Occult Blood Urine Nitrite Urine Bilirubin Urine Urobilinogen Ur Leukocyte Esterase Urine RBC Urine WBC Ur Squamous Epith Cells Urine Crystals Urine Bacteria Urine Casts Urine Mucus Ur Culture Indicated? Specimen Source A.calcoaceticus-baumannii cmplx PCR Bacteroides fragilis Elizabeth albicans (PCR) Elizabeth auris (PCR) C. glabrata (PCR) C. krusei (PCR) C. parapsilosis (PCR) C. tropicalis (PCR) C. neoform/gattii (PCR) Enterobacterales (PCR) E. cloacae complex PCR Enterococc faecalis PCR Enterococc faecium PCR E. coli (PCR) H. influenzae (PCR) Influenza Type A Ag Influenza Type B Ag Klebsiella aerogenes (PCR) Klebsiella oxytoca PCR K. pneumoniae group (PCR) List. monocytogenes PCR N. meningitidis (PCR) Proteus spp. (copies/mL) Salmonella spp. (PCR) SARS-CoV-2 Ag (CV2AG) Serratia marcescens PCR Staphylococcus sp PCR Staph aureus (PCR) mecA/C & MREJ Resist Gene mecA/C-Methicil Resis Gene mcr-1 Colistin Res Gene PCR Staph epidermidis (PCR) Staph lugdunensis (TEM-PCR) S. maltophilia (PCR) Streptococcus sp PCR Strep agalactiae (PCR) Strep pneumoniae (PCR) S. pyogenes (PCR) P. aeruginosa (PCR) Елена/B-Vanco Res Genes blaIMP Car res Gene PCR KPC (blaKPC) Detect PCR NDM (blaNDM) Detect PCR OXA-48 Carbapenem Resis Gene (PCR) blaVIM Car Res Gene PCR CTX-M ESBL (PCR) POC Glucose 119 H 52 L 11/20/24 11/20/24 11/20/24 23:07 23:05 22:55 WBC 13.8 H RBC 2.18 L Hgb 8.0 L Hct 25.3 L MCV 116.1 H MCH 36.7 H MCHC 31.6 RDW 15.9 H Plt Count 421 MPV 11.6 Seg Neuts % (Manual) 80.0 H Band Neutrophils % 14.0 H Lymphocytes % (Manual) 2.0 L Monocytes % (Manual) 2.0 Eosinophils % (Manual) 2.0 Basophils % (Manual) 0.0 L Metamyelocytes % Neutrophils # (Manual) 11.04 H Band Neutrophils # 1.9 H Lymphocytes # (Manual) 0.27 L Monocytes # (Manual) 0.27 L Eosinophils # (Manual) 0.27 Basophils # (Manual) 0.00 Metamyelocytes # Poikilocytosis Anisocytosis Macrocytosis [place] Cells PT 11.5 INR 1.09 APTT 26.8 Puncture Site ABG pH ABG pCO2 ABG pO2 ABG HCO3 ABG O2 Saturation ABG Base Excess Chaz Test Minute Volume FiO2 BiPAP Sodium 137 Potassium 4.9 Chloride 104 Carbon Dioxide 20.4 L Anion Gap 17.5 BUN 42.0 H Creatinine 2.34 H Est GFR ( Amer) 24 L Est GFR (Non-Af Amer) 20 L BUN/Creatinine Ratio 17.9 Glucose 102 Lactate 6.6 H* Calcium 7.9 L Total Bilirubin AST ALT Alkaline Phosphatase Troponin I High Sens 12.5 NT-Pro-B Natriuret Pep 8782.0 H* Total Protein Albumin Globulin Albumin/Globulin Ratio Urine Color Urine Clarity Urine pH Ur Specific [place] Urine Protein Urine Glucose (UA) Urine Ketones Urine Occult Blood Urine Nitrite Urine Bilirubin Urine Urobilinogen Ur Leukocyte Esterase Urine RBC Urine WBC Ur Squamous Epith Cells Urine Crystals Urine Bacteria Urine Casts Urine Mucus Ur Culture Indicated? Specimen Source Blood A.calcoaceticus-baumannii cmplx PCR Not detected Bacteroides fragilis Not detected Elizabeth albicans (PCR) Not detected Elizabeth auris (PCR) Not detected C. glabrata (PCR) Not detected C. krusei (PCR) Not detected C. parapsilosis (PCR) Not detected C. tropicalis (PCR) Not detected C. neoform/gattii (PCR) Not detected Enterobacterales (PCR) Not detected E. cloacae complex PCR Not detected Enterococc faecalis PCR Not detected Enterococc faecium PCR Not detected E. coli (PCR) Not detected H. influenzae (PCR) Not detected Influenza Type A Ag Negative Influenza Type B Ag Negative Klebsiella aerogenes (PCR) Not detected Klebsiella oxytoca PCR Not detected K. pneumoniae group (PCR) Not detected List. monocytogenes PCR Not detected N. meningitidis (PCR) Not detected Proteus spp. (copies/mL) Not detected Salmonella spp. (PCR) Not detected SARS-CoV-2 Ag (CV2AG) Negative Serratia marcescens PCR Not detected Staphylococcus sp PCR Not detected Staph aureus (PCR) Not detected mecA/C & MREJ Resist Gene Not applicable mecA/C-Methicil Resis Gene Not applicable mcr-1 Colistin Res Gene PCR Not applicable Staph epidermidis (PCR) Not detected Staph lugdunensis (TEM-PCR) Not detected S. maltophilia (PCR) Not detected Streptococcus sp PCR Detected A* Strep agalactiae (PCR) Not detected Strep pneumoniae (PCR) Not detected S. pyogenes (PCR) Detected A* P. aeruginosa (PCR) Not detected Елена/B-Vanco Res Genes Not applicable blaIMP Car res Gene PCR Not applicable KPC (blaKPC) Detect PCR Not applicable NDM (blaNDM) Detect PCR Not applicable OXA-48 Carbapenem Resis Gene (PCR) Not applicable blaVIM Car Res Gene PCR Not applicable CTX-M ESBL (PCR) Not applicable POC Glucose Preliminary micro results at discharge 11/20/24 23:05 Blood Culture Result 1 - Preliminary Blood - Left Forearm Discharge Plan Discharge Disposition: Discharge Date/Time: 11/21/24 13:09 Date/Time: 11/21/24 11:25
== END 2024-11-21 13:09 | disposition expired | DRG 871 ==
LOC: ER 11-21 01:49 → ICU 11-21 05:01
PROVIDERS: Registered Nurse; Admitting Provider Family Medicine; Emergency Provider Emergency Medicine; PCP Family Medicine; Visit Provider Family Medicine
DX: A41.9 Sepsis, unspecified organism (principal); I50.33 Acute on chronic diastolic (congestive) heart failure; J96.01 Acute respiratory failure with hypoxia; N17.9 Acute kidney failure, unspecified; I48.19 Other persistent atrial fibrillation; I13.0 Hypertensive heart and chronic kidney disease with heart failure and stage 1 through stage 4 chronic kidney disease, or unspecified chronic kidney disease; Z68.42 Body mass index [BMI] 45.0-49.9, adult; E87.20 Acidosis, unspecified; N18.31 Chronic kidney disease, stage 3a; R65.20 Severe sepsis without septic shock; Z66 Do not resuscitate; Z51.5 Encounter for palliative care; R07.82 Intercostal pain; E66.9 Obesity, unspecified; R41.841 Cognitive communication deficit; Z74.01 Bed confinement status; M10.9 Gout, unspecified; J45.909 Unspecified asthma, uncomplicated; G47.00 Insomnia, unspecified; M79.7 Fibromyalgia; R32 Unspecified urinary incontinence; E03.9 Hypothyroidism, unspecified; Z79.82 Long term (current) use of aspirin; Z79.899 Other long term (current) drug therapy; Z79.890 Hormone replacement therapy; Z88.5 Allergy status to narcotic agent; Z88.8 Allergy status to other drugs, medicaments and biological substances; Z91.048 Other nonmedicinal substance allergy status
CPT/HCPCS: 36415; 36600; 51702; 71045; 80048; 80053; 81001; 82800; 82805; 83605; 83880; 84484; 85007; 85027; 85610; 85730; 87040; 87150; 87804; 87811; 93005; 94660; 94761; 96365; 96366; 96368; 99285; J2543; J3370